=== PATIENT | male | born 1955 | race Caucasian/White ===

== ENCOUNTER 2021-08-20 10:35 | Inpatient (IN) | payer OTHER, MEDICAID, SELFPAY ==
--- NOTE | 2021-08-20 | ECG_ITS ---
Test Reason : qtc prolongation Blood Pressure : / mmHG Vent. Rate : 094 BPM Atrial Rate : 094 BPM P-R Int : 192 ms QRS Dur : 110 ms QT Int : 368 ms P-R-T Axes : 067 026 061 degrees QTc Int : 460 ms Normal sinus rhythm Incomplete right bundle branch block Borderline ECG When compared with ECG of 10-NOV-2005 18:25, Incomplete right bundle branch block is now Present Referred By: Arlette Shepherd Electronically Signed By:FERNANDO VELEZ
[2021-08-20 11:01] VITALS: BP 144/74; PULSE 97; RESP 16; TEMP 36.4; O2SAT 99
--- NOTE | 2021-08-20 11:52 | P.HPPS_ITS ---
HPI Date of Service: 08/20/21 Chief Complaint: Unspecified bipolar Sources of Information: patient interviewed, chart reviewed and crisis/core team assessment reviewed HPI Subjective Notes: Conditional Voluntary (signed by HCP- his son) Healthcare Proxy: Yes Narrative: Mr. Kumari is a 65 year-old male with hx of schizoaffective disorder bipolar type who was brought to [facility] ED via EMS from [facility] where pt marcia david resides since 11/2020 due to increase disporganized behavior, speech, delusions related to increase religiosity for about two weeks. In the ED, utox was negative. Pt has been on combination of lithium and clozaril. While at [facility] ED, clozaril was increased from 50mg po daily and 100mg po qhs to 50mg po daily and 150mg po qhs. His lithium dose was increased from 300mg po BID to 450mg po BID. On the unit, pt presents as pleasant but suspicious. Pt asks this write to close the door as people can hear. He is whispering but mostly intelligible. Pt reports there was a cockroaches infestation. He repeats 0.1, my sister, unclear what pt is referring to. When asked if he knows where he is, pt states [employer]. Pt states he thinks he may live here. Pt unable to articulate reasons for this admission or that he is in a psychiatric unit. Pt reports seeing angels and that he is an harvinder too. His thought process is mostly derailed and pt presents as poor historian. Past Psychiatric History: Inpatient: per [facility] documentation, multiple inpt admission since age 15 when he had first psychotic episode. Most recently at [facility] 2005; [facility] 2019. OP: Brittany Nicolas Past medication trial: lithium, clozaril. Medical Evaluation Reviewed: Hospitalist Haydee Pending reviewed labs from [facility]- cbc wnl, CMP wnl, EKG on 08/19 Qtc slightly prolonged 472. Meds/Allergies Meds Home Medications Acetaminophen (Acetaminophen 325 Mg Tablet) 650 mg PO Q6H PRN PRN Reason: Headache/Pain Mild Scale (1-3) Al Hydroxide/Mg Hydroxide (Magnesium Hydrox/Alum Hydrox 30 Ml Oral.Susp) 30 ml PO Q6H PRN PRN Reason: Heartburn/Nausea Apixaban (Apixaban 5 Mg Tablet) 5 mg PO BID [facility] Carvedilol (Carvedilol 12.5 Mg Tablet) 12.5 mg PO BID [facility]; Protocol Clozapine (Clozapine 25 Mg Tablet) 50 mg PO DAILY [facility] Clozapine (Clozapine 25 Mg Tablet) 150 mg PO BEDTIME [facility] Levothyroxine Sodium (Levothyroxine Sodium 175 Mcg Tablet) 175 mcg PO DAILY@0600 [facility] [place] Carbonate ([place] Carbonate 300 Mg Capsule) 450 mg PO BID [facility] Lorazepam (Lorazepam 1 Mg Tablet) 1 mg PO Q6H PRN PRN Reason: anxiety/agitation/sleep Magnesium Hydroxide (Milk Of Magnesia 30 Ml Oral.Susp) 30 ml PO DAILY PRN PRN Reason: Constipation Trazodone HCl (Trazodone Hcl 50 Mg Tablet) 50 mg PO BEDTIME PRN PRN Reason: Insomnia Trazodone HCl (Trazodone Hcl 100 Mg Tablet) 100 mg PO BEDTIME [facility] Allergies Allergies Allergy/AdvReac Type Severity Reaction Status Date / Time house dust Allergy Intermediate watery eyes Verified 08/20/21 11:33 adhesive Allergy Unknown Unknown Verified 08/20/21 12:09 fenofibrate Allergy Unknown Unknown Verified 08/20/21 12:05 Sulfa (Sulfonamide Allergy Unknown unknown Verified 08/20/21 11:33 Antibiotics) tomato Allergy Unknown Unknown Verified 08/20/21 12:07 Yeast Allergy Unknown Unknown Verified 08/20/21 12:08 zolpidem [From Ambien] Allergy Unknown Unknown Verified 08/20/21 12:06 lactose AdvReac Unknown Unknown Verified 08/20/21 12:07 Mental Status Exam Mental Status Exam Narrative: Appearance: MO, wearing hospital gown, fair hygiene in NAD Behavior:overly familiar psychomotor:no agitation or retardation noted Speech:mumbles, spontaneous mostly unintelligible Thought process:derailment/loose associations Thought content:some conspiracy, but unclear delusional story Mood: good Affect: expansive SI:denies HI:denies VH/AH:seeing angelerin, Mili razo Delusions:somewhat guarded, suspicious with some degree of grandiose/scientologist delusions Insight/judgment:impaired x 2 Memory/cog: alert, not oriented to situation, place, month, year. impaired. Assessment & Plan Assessment & Plan (1) Schizoaffective disorder, bipolar type: Status: Acute Code(s): F25.0 - Schizoaffective disorder, bipolar type Assessment and Plan: Mr. Kumari is a 65 year-old male with long hx of schizoaffective disorder, Parkinson's, afib status post pace maker, HTN, sleep apnea who was brought to [facility] ED from [facility] where he resides since 11/2020 due to increase disorganized behaviors/speech, paranoid and scientologist delusions. Pt has been on combination of lithium and clozaril. [place] increase to 450mg po BID while in ED on 08/14. Clozaril increased from 50mg po daily and 100mg po qhs to 50mg po daily and 150mg po qhs. PLAN 1. Admitted on CV signed by HCP. 15 minutes checks for safety. Pt currently does not have capacity to make medical decisions as he lacks ability to demonstrate understanding of current medical/psychiatric condition, appreciation of risks versus benefit of treatment. His son, who is HCP and POA, gave verbal consent for CV witnessed by this development writer, GURINDER Garcia, and MARK Collado. 2. Continue clozaril 50mg po daily and 150mg po qhs- weekly ANC, ordered clozaril level. recheck EKG as Qtc gradually prolonged since dose increase. 3. check lithium level AM, TSH 4. Coordinate care 5. After care planning Patient educated on: diagnosis Guardian/Caregiver educated on: diagnosis and medication risk/benefits Informed Consent: understands (signed by HCP) Reason for continued inpatient stay Substantial Risk for: inability to function
[2021-08-20 12:02] VITALS: BMI 34.5
[2021-08-20 13:15] LABS: Neut%MD 70.9 %; Neutrophils Absolute Auto 6.4 x10*3/uL (2.0-8.3)
--- NOTE | 2021-08-20 14:16 | PC.ADMIT ---
Patient Quoc Edge, 65 year-old , Male who was diagnosed for Unspecified Bipolar and related desorder. Has been transferred today from the [facility] to [facility] for further investigation and management of treatment. Patient with medical and sugical history of : Depression, HTN , Hyperlipidemia , A.fib post pacemaker placement , Thyroid disease . Patient has a VS: BP : 144/74 , Spo2: 99. Pls: 97. Temp: 97.5.He is alert, confused and oriented only to self. Patient is pleasant with a redness in his face more around the nose. No complaint of chest pain, no edema, no nausea, no vomiting. HS, LS,BS not listen to. Patient declined complete assessment. Patient was admitted today at 11h30 AM on the unit for further evaluation and management of treatment.
[2021-08-20 18:00] VITALS: BP 160/83; PULSE 101; RESP 16; TEMP 37; O2SAT 97
[2021-08-20 20:23] VITALS: BP 164/79; PULSE 102
[2021-08-20] MEDS: cloZAPine 25 MG TABLET 150 MG PO (20:23)
[2021-08-20] MEDS: carvediloL 12.5 MG TABLET PO (20:23)
[2021-08-20] MEDS: Apixaban 5 MG TABLET PO (20:25)
[2021-08-20] MEDS: traZODone HCL 100 MG TABLET PO (20:25)
[2021-08-20] MEDS: Lithium Carbonate 300 MG TABLET 450 MG PO (20:34)
[2021-08-21] MEDS: Levothyroxine Sodium 175 MCG TABLET PO (05:34)
[2021-08-21] MEDS: LORazepam 1 MG TABLET PO (05:34)
[2021-08-21 07:00] VITALS: BMI 34.7
[2021-08-21 07:06] LABS: MANUAL DIFF FLAG NO
[2021-08-21 07:15] LABS: Basophils Percent Auto 0.4 % (0-2); Eosinophils Absolute Auto 0.3 X10*3/uL (0.0-0.4); Eosinophils Percent Auto 3.3 % (0-4); Hematocrit 33.4 % (42.0-52.0); Hemoglobin 11.2 g/dl (14.0-18.0); Imm Gran Abs Auto 0.04 X10*3/uL (0.00-0.03); Imm Gran Pct Auto 0.5 % (0.0-0.4); Lymphocytes Absolute Auto 1.7 X10*3/uL (1.2-4.9); Lymphocytes Percent Auto 21.6 % (20-40); Mean Corpuscular HGB Conc 33.5 g/dl (31.0-36.0); Mean Corpuscular Hemoglobin 29.5 pg (27.0-33.0); Mean Corpuscular Volume 87.9 fL (80.0-98.0); Mean Platelet Volume 10.6 fL (9.4-12.4); Monocytes Percent Auto 12.3 % (2-11); Neutrophils Absolute Auto 4.9 x10*3/uL (2.0-8.3); Neutrophils Percent Auto 61.9 % (45-73); Platelet Count 291 X10*3/uL (160-400); Red Cell Distribution Width 13.2 % (11.0-16.0); White Blood Count 7.9 X10*3/uL (4.8-10.8)
[2021-08-21 07:23] LABS: Lithium 0.83 mmol/L (0.60-1.20)
[2021-08-21 07:28] LABS: Alanine Aminotransferase 33 U/L (0-40); Albumin Level 4.1 g/dL (3.5-5.0); Alkaline Phosphatase 73 U/L (39-117); Anion Gap 12 (12-20); Aspartate Amino Transferase 19 U/L (5-37); Bilirubin Total 0.7 mg/dL (0.0-1.0); Blood Urea Nitrogen 13 mg/dL (9-16); Calcium 9.3 mg/dL (8.4-10.2); Carbon Dioxide 24 mmol/L (22-29); Chloride 106 mmol/L (96-108); Cholesterol 140 mg/dL; Creatinine Clr Calc Pharmacy 76.9; Estimated Glomerular Filt Rate > 60; Glucose Random 118 mg/dL (60-115); HDL Cholesterol 25 mg/dL; LDL Cholesterol Calculated 71 mg/dl; Potassium 3.6 mmol/L (3.3-5.1); Sodium 138 mmol/L (135-145); Total Protein 6.6 g/dL (6.5-8.0); Triglycerides 223 mg/dL
[2021-08-21 07:48] LABS: Free T4 (Free Thyroxine) 1.38 ng/dL (0.71-1.85); Thyroid Stimulating Hormone 1.07 uIU/mL (0.32-4.0)
[2021-08-21 08:00] VITALS: BP 144/80; PULSE 84; TEMP 36.6; O2SAT 97
[2021-08-21 08:00] LABS: Folate 10.6 ng/mL (> or = 4.0); Vitamin B12 481 pg/mL (200-900)
[2021-08-21 08:07] LABS: Estimated Average Glucose 103 mg/dL; Hemoglobin A1c % 5.2 %
[2021-08-21 08:25] VITALS: BP 144/80; PULSE 84
[2021-08-21] MEDS: Apixaban 5 MG TABLET PO ×2 (08:25→20:30)
[2021-08-21] MEDS: carvediloL 12.5 MG TABLET PO ×2 (08:25→20:28)
[2021-08-21] MEDS: cloZAPine 25 MG TABLET 50 MG PO (08:26)
[2021-08-21] MEDS: Lithium Carbonate 300 MG TABLET 450 MG PO ×2 (08:26→20:29)
--- NOTE | 2021-08-21 11:14 | PM.IMCN ---
History of Present Illness Data of Consult Service Date: 08/21/21 Primary Care Provider: Unknown Physician HPI Reason for consult: Routine Medical Patient medical history/surgical/social/FM information is obtained via records from [facility]. This is a 65 yo M with a PMH of PAF on Eliquis, SSS - s/p PPM, HTN, Esstential tremor, ? Parkinson disease, NIRMAL on CPAP, Bipolar/Schizoaffective d/o who is admitted to the [facility]arg[facility] unit. Medical are services are consulted for routine medical H&P. Patient is seen and examined in the quiet room. He denies any chest pain, shortness of breath, cough. PMH Bipolar d/o SSS - s/p PPM PAF ED HTN HyperTG hypothyroid Parkinsonism NIRMAL PSH Lap Nancy ETT ASD repair PPM PPM infection Arthoscopic Knee surg Social No alcohol use No tobacco use No illicit substance use FH Mother - breast CA Father - CAD, Brother - CAD, COPD, Colonic polyp, Bone cancer Review of Systems Review of Systems: negative except above COUNT INCLUDES THE [facility] Medical History (Updated 08/21/21 @ 11:47 by Jorge Dejesus MD) PAF (paroxysmal atrial fibrillation) Social History Household Members: None Housing: Assisted Living Facility Do you presently have visiting nurse or other home services: No Patient Tobacco Use Status: Never used Tobacco Smoked in Last 30 Days: No e-Cigarette/Vaping Use: Never Used Patient Interested in Nicotine Replacement: No Patient Given Instructions on How to Stop Smoking: No Second Hand Smoke Exposure: No Use of substances other than those prescribed or required for medical reasons: No Currently Displaying Signs/Symptoms of Drug Intoxication Withdrawal: No Any prior treatment program specific to substance use: No Advance Directives: No Advance Directives Information Provided: No Advance Directives on File: No Do you have thoughts of harming others: None Do you have a plan to hurt others: No Plan Recently lost weight without trying: No How much weight loss: Not applicable Eating poorly because of decreased appetite: No Nutrition screen score: 0 Nutrition Risks: No Nutritional Risk Poor oral hygiene: Yes Sexual orientation: Don't Know Meds Allergies Allergy/AdvReac Type Severity Reaction Status Date / Time house dust Allergy Intermediate watery eyes Verified 08/20/21 11:33 adhesive Allergy Unknown Unknown Verified 08/20/21 12:09 fenofibrate Allergy Unknown Unknown Verified 08/20/21 12:05 Sulfa (Sulfonamide Allergy Unknown unknown Verified 08/20/21 11:33 Antibiotics) tomato Allergy Unknown Unknown Verified 08/20/21 12:07 Yeast Allergy Unknown Unknown Verified 08/20/21 12:08 zolpidem [From Ambien] Allergy Unknown Unknown Verified 08/20/21 12:06 lactose AdvReac Unknown Unknown Verified 08/20/21 12:07 Active Medications: Current Medications Acetaminophen (Acetaminophen 325 Mg Tablet) 650 mg PO Q6H PRN PRN Reason: Headache/Pain Mild Scale (1-3) Al Hydroxide/Mg Hydroxide (Magnesium Hydrox/Alum Hydrox 30 Ml Oral.Susp) 30 ml PO Q6H PRN PRN Reason: Heartburn/Nausea Apixaban (Apixaban 5 Mg Tablet) 5 mg PO BID [facility] Last Admin: 08/21/21 08:25 Dose: 5 mg Documented by: Carvedilol (Carvedilol 12.5 Mg Tablet) 12.5 mg PO BID [facility]; Protocol Last Admin: 08/21/21 08:25 Dose: 12.5 mg Documented by: Clozapine (Clozapine 25 Mg Tablet) 50 mg PO DAILY [facility] Last Admin: 08/21/21 08:26 Dose: 50 mg Documented by: Clozapine (Clozapine 25 Mg Tablet) 150 mg PO BEDTIME [facility] Last Admin: 08/20/21 20:23 Dose: 150 mg Documented by: Levothyroxine Sodium (Levothyroxine Sodium 175 Mcg Tablet) 175 mcg PO DAILY@0600 [facility] Last Admin: 08/21/21 05:34 Dose: 175 mcg Documented by: [place] Carbonate ([place] Carbonate 300 Mg Tablet) 450 mg PO BID [facility] Last Admin: 08/21/21 08:26 Dose: 450 mg Documented by: Lorazepam (Lorazepam 1 Mg Tablet) 1 mg PO Q6H PRN PRN Reason: anxiety/agitation/sleep Last Admin: 08/21/21 05:34 Dose: 1 mg Documented by: Magnesium Hydroxide (Milk Of Magnesia 30 Ml Oral.Susp) 30 ml PO DAILY PRN PRN Reason: Constipation Trazodone HCl (Trazodone Hcl 50 Mg Tablet) 50 mg PO BEDTIME PRN PRN Reason: Insomnia Trazodone HCl (Trazodone Hcl 100 Mg Tablet) 100 mg PO BEDTIME [facility] Last Admin: 08/20/21 20:25 Dose: 100 mg Documented by: Physical Exam Vital Signs and Narrative: Vital Signs: Last Vital Signs Temp 98.6 F 08/20/21 18:00 Pulse 84 08/21/21 08:25 Resp 16 08/20/21 18:00 BP 144/80 H 08/21/21 08:25 Pulse Ox 97 08/20/21 18:00 BMI result Body Mass Index 34.5 Const: Other: Constitutional - Awake and Alert, No apparent distress Eyes - PERRLA, EOMI Cardiovascular - S1S2, RRR, No edema Respiratory - Normal lung expansion, Normal respiratory effort, No respiratory distress, CTA bilaterally Gastrointestinal - NT / ND; +BS; No rebound or guarding - No CVA tenderness Extremities - no calf tenderness bilaterally, no swelling Musculoskeletal - Normal inspection, normal ROM Skin - Warm/Dry Neurological - Oriented to self, CN 2-12 in tact bilaterally Results Labs CBC and Chem 7: 08/21/21 06:56 08/21/21 06:56 Labs: Laboratory Results - last 24 hr 08/20/21 08/21/21 08/21/21 13:07 06:56 06:56 MCV 87.9 MCH 29.5 MCHC 33.5 RDW 13.2 Plt Count 291 MPV 10.6 Immature Gran % (Auto) 0.5 H Neut % (Auto) 61.9 Lymph % (Auto) 21.6 [place] % (Auto) 12.3 H Eos % (Auto) 3.3 Baso % (Auto) 0.4 Lymph # (Auto) 1.7 [place] # (Auto) 1.0 Eos # (Auto) 0.3 Baso # (Auto) 0.0 Abs Immat Gran (auto) 0.04 H Absolute Neuts (auto) 6.4 4.9 Absolute Nucleated RBC 0.000 Nucleated RBC % (auto) 0.0 Anion Gap Estim Creat Clear Calc Estimated GFR Random Glucose Estimat Average Glucose 103 Hemoglobin A1c % 5.2 Calcium Total Bilirubin AST ALT Alkaline Phosphatase Total Protein Albumin Triglycerides Cholesterol LDL Cholesterol, Calc HDL Cholesterol Vitamin B12 Folate TSH Free T4 [place] 08/21/21 08/21/21 08/21/21 06:56 06:56 06:56 MCV MCH MCHC RDW Plt Count MPV Immature Gran % (Auto) Neut % (Auto) Lymph % (Auto) [place] % (Auto) Eos % (Auto) Baso % (Auto) Lymph # (Auto) [place] # (Auto) Eos # (Auto) Baso # (Auto) Abs Immat Gran (auto) Absolute Neuts (auto) Absolute Nucleated RBC Nucleated RBC % (auto) Anion Gap 12 Estim Creat Clear Calc 76.9 Estimated GFR > 60 Random Glucose 118 H Estimat Average Glucose Hemoglobin A1c % Calcium 9.3 Total Bilirubin 0.7 AST 19 ALT 33 Alkaline Phosphatase 73 Total Protein 6.6 Albumin 4.1 Triglycerides 223 Cholesterol 140 LDL Cholesterol, Calc 71 HDL Cholesterol 25 Vitamin B12 481 Folate 10.6 TSH 1.07 Free T4 1.38 [place] 0.83 Assessment and Plan (1) PAF (paroxysmal atrial fibrillation): Status: Acute (2) Routine medical exam: Status: Acute 65 yo M with multiple medical issues admitted to the inpatient bhargavi-psych unit. He appears to be stable from a medical perspective at this time. Current stable Medical issues: SSS - s/p PPM - rates controlled PAF - continue Eliquis / Coreg HTN - coreg as above HyperTG - does not appaer to be on any meds ?? hypothyroid - synthroid NIRMAL - CPAP, see details below Would continue his baseline medical medications -- including Coreg / Eliquis, Synthroid, any others. Additionally [facility] records indicate that he has NIRMAL and is on CPAP. If able to bring unit from would prefer this, but for the time being CPAP has been ordered here -- his baseline settings are unknown. Please re-consult as needed
--- NOTE | 2021-08-21 11:26 | P.PNPSI_ITS ---
Subjective Subjective Date of Service: 08/21/21 Reason For Visit: Unspecified bipolar Subjective Notes: Conditional Voluntary (per HCP) Healthcare Proxy: Yes Interim History: Legal: CV signed by HCP Per nursing, pt was up most night, purposeless behavior, sitting on toilet with clothes and trying to flush toilet by turning on light switch. Pt this morning in his room. Pt pleasant. Pt reports he is doing good. His thought process is more organized in that there is less derailment/loose associations. Pt reports that he continues to see Omari Razo, that she is also telling him everything will be fine except for some [place] assholes who live upstairs. Pt also continues to report that he sees angels. He reports that he feels safe here in the unit. Pt is taking medications as prescribed. No side effects noted or reported. Pt de nies constipation/loose stool, no chest pain, no SOB. Medication Compliance: Yes Side effects from medications: No Attending Groups: No Review of Systems Acute medical concerns: No Review of Systems Review of Systems Yes all other systems are reviewed and are negative Constitutional: Denies fatigue Cardiovascular: Denies chest pain and Denies lightheadedness Endocrine: Denies fatigue Mental Status Exam Mental Status Exam Narrative: Appearance: MO, wearing hospital gown, fair hygiene in NAD Behavior:overly familiar psychomotor:no agitation or retardation noted Speech:mumbles, spontaneous mostly unintelligible Thought process:derailment/loose associations Thought content:pt reports hearing Omari Razo telling him some Russians are bad ppl. Mood: good Affect: expansive SI:denies HI:denies VH/AH:seeing angels, VH/AH of Mili razo Delusions:somewhat guarded, suspicious with some degree of grandiose (thinks he is an harvinder too)/episcopalian delusions Insight/judgment:impaired x 2 Memory/cog: alert, not oriented to situation, place, month, year. impaired. Diagnostics Vital Signs (24Hr): Vital Signs - 24 hr 08/20/21 18:00 08/20/21 20:23 08/21/21 08:25 Temperature 98.6 F Pulse Rate 101 H 102 H 84 Respiratory Rate 16 Blood Pressure 160/83 H 164/79 H 144/80 H Pulse Oximetry 97 BMI result Body Mass Index 34.5 Labs Results: 08/21/21 06:56 08/21/21 06:56 Labs: Laboratory Results - last 48 hr 08/20/21 08/21/21 08/21/21 13:07 06:56 06:56 WBC 7.9 RBC 3.80 L Hgb 11.2 L Hct 33.4 L MCV 87.9 MCH 29.5 MCHC 33.5 RDW 13.2 Plt Count 291 MPV 10.6 Immature Gran % (Auto) 0.5 H Neut % (Auto) 61.9 Lymph % (Auto) 21.6 [place] % (Auto) 12.3 H Eos % (Auto) 3.3 Baso % (Auto) 0.4 Lymph # (Auto) 1.7 [place] # (Auto) 1.0 Eos # (Auto) 0.3 Baso # (Auto) 0.0 Abs Immat Gran (auto) 0.04 H Absolute Neuts (auto) 6.4 4.9 Absolute Nucleated RBC 0.000 Nucleated RBC % (auto) 0.0 Sodium Potassium Chloride Carbon Dioxide Anion Gap BUN Creatinine Estim Creat Clear Calc Estimated GFR Random Glucose Estimat Average Glucose 103 Hemoglobin A1c % 5.2 Calcium Total Bilirubin AST ALT Alkaline Phosphatase Total Protein Albumin Triglycerides Cholesterol LDL Cholesterol, Calc HDL Cholesterol Vitamin B12 Folate TSH Free T4 [place] 08/21/21 08/21/21 08/21/21 06:56 06:56 06:56 WBC RBC Hgb Hct MCV MCH MCHC RDW Plt Count MPV Immature Gran % (Auto) Neut % (Auto) Lymph % (Auto) [place] % (Auto) Eos % (Auto) Baso % (Auto) Lymph # (Auto) [place] # (Auto) Eos # (Auto) Baso # (Auto) Abs Immat Gran (auto) Absolute Neuts (auto) Absolute Nucleated RBC Nucleated RBC % (auto) Sodium 138 Potassium 3.6 Chloride 106 Carbon Dioxide 24 Anion Gap 12 BUN 13 Creatinine 1.03 Estim Creat Clear Calc 76.9 Estimated GFR > 60 Random Glucose 118 H Estimat Average Glucose Hemoglobin A1c % Calcium 9.3 Total Bilirubin 0.7 AST 19 ALT 33 Alkaline Phosphatase 73 Total Protein 6.6 Albumin 4.1 Triglycerides 223 Cholesterol 140 LDL Cholesterol, Calc 71 HDL Cholesterol 25 Vitamin B12 481 Folate 10.6 TSH 1.07 Free T4 1.38 [place] 0.83 Medications Medications Current Medications Acetaminophen (Acetaminophen 325 Mg Tablet) 650 mg PO Q6H PRN PRN Reason: Headache/Pain Mild Scale (1-3) Al Hydroxide/Mg Hydroxide (Magnesium Hydrox/Alum Hydrox 30 Ml Oral.Susp) 30 ml PO Q6H PRN PRN Reason: Heartburn/Nausea Apixaban (Apixaban 5 Mg Tablet) 5 mg PO BID [facility] Last Admin: 08/21/21 08:25 Dose: 5 mg Documented by: Carvedilol (Carvedilol 12.5 Mg Tablet) 12.5 mg PO BID [facility]; Protocol Last Admin: 08/21/21 08:25 Dose: 12.5 mg Documented by: Clozapine (Clozapine 25 Mg Tablet) 50 mg PO DAILY [facility] Last Admin: 08/21/21 08:26 Dose: 50 mg Documented by: Clozapine (Clozapine 25 Mg Tablet) 150 mg PO BEDTIME [facility] Last Admin: 08/20/21 20:23 Dose: 150 mg Documented by: Levothyroxine Sodium (Levothyroxine Sodium 175 Mcg Tablet) 175 mcg PO DAILY@0600 [facility] Last Admin: 08/21/21 05:34 Dose: 175 mcg Documented by: [place] Carbonate ([place] Carbonate 300 Mg Tablet) 450 mg PO BID [facility] Last Admin: 08/21/21 08:26 Dose: 450 mg Documented by: Lorazepam (Lorazepam 1 Mg Tablet) 1 mg PO Q6H PRN PRN Reason: anxiety/agitation/sleep Last Admin: 08/21/21 05:34 Dose: 1 mg Documented by: Magnesium Hydroxide (Milk Of Magnesia 30 Ml Oral.Susp) 30 ml PO DAILY PRN PRN Reason: Constipation Trazodone HCl (Trazodone Hcl 50 Mg Tablet) 50 mg PO BEDTIME PRN PRN Reason: Insomnia Trazodone HCl (Trazodone Hcl 100 Mg Tablet) 100 mg PO BEDTIME [facility] Last Admin: 08/20/21 20:25 Dose: 100 mg Documented by: Allergies Allergies Allergy/AdvReac Type Severity Reaction Status Date / Time house dust Allergy Intermediate watery eyes Verified 08/20/21 11:33 adhesive Allergy Unknown Unknown Verified 08/20/21 12:09 fenofibrate Allergy Unknown Unknown Verified 08/20/21 12:05 Sulfa (Sulfonamide Allergy Unknown unknown Verified 08/20/21 11:33 Antibiotics) tomato Allergy Unknown Unknown Verified 08/20/21 12:07 Yeast Allergy Unknown Unknown Verified 08/20/21 12:08 zolpidem [From Ambien] Allergy Unknown Unknown Verified 08/20/21 12:06 lactose AdvReac Unknown Unknown Verified 08/20/21 12:07 Assessment & Plan Assessment & Plan (1) Schizoaffective disorder, bipolar type: Status: Acute Code(s): F25.0 - Schizoaffective disorder, bipolar type Assessment and Plan: Mr. Kumari is a 65 year-old male with long hx of schizoaffective disorder, Parkinson's, afib status post pace maker, HTN, sleep apnea who was brought to [facility] ED from [facility] where he resides since 11/2020 due to increase disorganized behaviors/speech, paranoid and episcopalian delusions. Pt has been on combination of lithium and clozaril. [place] increase to 450mg po BID while in ED on 08/14. Clozaril increased from 50mg po daily and 100mg po qhs to 50mg po daily and 150mg po qhs. PLAN 1. Admitted on CV signed by HCP. 15 minutes checks for safety. Pt currently does not have capacity to make medical decisions as he lacks ability to demonstrate understanding of current medical/psychiatric condition, appreciation of risks versus benefit of treatment. His son, who is HCP and POA, gave verbal consent for CV witnessed by this sheet writer, GURINDER Garcia, and MARK Collado. 2. Continue clozaril 50mg po daily and 150mg po qhs- weekly ANC, ordered clozaril level. 3. check lithium level AM on 08/21 0.8. 4. Coordinate care 5. After care planning I spent minutes with the patient and/or on the patient floor today, greater than?50% of which was spent counseling/coordinating care. Reason for contiued inpatient stay Substantial Risk for: inability to function
--- NOTE | 2021-08-21 12:56 | PC.NURSE ---
Pt. with negative Covid test from [facility] ED performed 08/19.
--- NOTE | 2021-08-21 13:14 | PC.NURSE ---
Son/activated HCP notified of pt.'s admission at time of admission 08/20.
[2021-08-21 18:00] VITALS: BP 158/78; PULSE 88; RESP 19; TEMP 36.7; O2SAT 96
[2021-08-21 20:28] VITALS: BP 158/78; PULSE 88
[2021-08-21] MEDS: traZODone HCL 100 MG TABLET PO (20:28)
[2021-08-21] MEDS: cloZAPine 25 MG TABLET 150 MG PO (20:30)
[2021-08-22 06:00] VITALS: BP 148/77; PULSE 78; RESP 14; TEMP 36.4; O2SAT 97
[2021-08-22] MEDS: Levothyroxine Sodium 175 MCG TABLET PO (06:45)
[2021-08-22] MEDS: Lithium Carbonate 300 MG TABLET 450 MG PO ×2 (09:12→19:58)
[2021-08-22 09:13] VITALS: BP 148/77; PULSE 78
[2021-08-22] MEDS: cloZAPine 25 MG TABLET 50 MG PO ×2 (09:13→19:56)
[2021-08-22] MEDS: carvediloL 12.5 MG TABLET PO ×2 (09:13→23:19)
[2021-08-22] MEDS: Apixaban 5 MG TABLET PO ×2 (09:13→19:58)
--- NOTE | 2021-08-22 10:27 | HO.PSYCHPN ---
Subjective Subjective Date of Service: 08/22/21 Reason For Visit: Unspecified bipolar Subjective Notes: Conditional Voluntary Interim History: Patient was seen and discussed in rounds. He continues to be confused, delusional. He does exhibit indications of auditory and possibly visual hallucinations. He is disorganized. He is however med compliant. Eating and sleeping adequately. No complaints or side effects. No behavioral issues. No changes were made today Medication Compliance: Yes Side effects from medications: No Review of Systems Review of Systems Yes all other systems are reviewed and are negative Constitutional: Denies fatigue Cardiovascular: Denies chest pain and Denies lightheadedness Endocrine: Denies fatigue Mental Status Exam Mental Status Exam Narrative: Appearance: MO, wearing hospital gown, fair hygiene in NAD Behavior:overly familiar psychomotor:no agitation or retardation noted Speech:mumbles, spontaneous mostly unintelligible Thought process:derailment/loose associations Thought content:pt reports hearing Omari Razo telling him some Russians are bad ppl. Mood: good Affect: expansive SI:denies HI:denies VH/AH:seeing angels, VH/AH of Mili razo Delusions:somewhat guarded, suspicious with some degree of grandiose (thinks he is an harvinder too)/adventist delusions Insight/judgment:impaired x 2 Memory/cog: alert, not oriented to situation, place, month, year. impaired. Patient Appearance: Disheveled Diagnostics Vital Signs (24Hr): Vital Signs - 24 hr 08/21/21 18:00 08/21/21 20:28 08/22/21 09:13 Temperature 98.1 F Pulse Rate 88 88 78 Respiratory Rate 19 Blood Pressure 158/78 H 158/78 H 148/77 H Pulse Oximetry 96 BMI result Body Mass Index 34.7 Labs Results: 08/21/21 06:56 08/21/21 06:56 Labs: Laboratory Results - last 48 hr 08/20/21 08/21/21 08/21/21 13:07 06:56 06:56 WBC 7.9 RBC 3.80 L Hgb 11.2 L Hct 33.4 L MCV 87.9 MCH 29.5 MCHC 33.5 RDW 13.2 Plt Count 291 MPV 10.6 Immature Gran % (Auto) 0.5 H Neut % (Auto) 61.9 Lymph % (Auto) 21.6 [place] % (Auto) 12.3 H Eos % (Auto) 3.3 Baso % (Auto) 0.4 Lymph # (Auto) 1.7 [place] # (Auto) 1.0 Eos # (Auto) 0.3 Baso # (Auto) 0.0 Abs Immat Gran (auto) 0.04 H Absolute Neuts (auto) 6.4 4.9 Absolute Nucleated RBC 0.000 Nucleated RBC % (auto) 0.0 Sodium Potassium Chloride Carbon Dioxide Anion Gap BUN Creatinine Estim Creat Clear Calc Estimated GFR Random Glucose Estimat Average Glucose 103 Hemoglobin A1c % 5.2 Calcium Total Bilirubin AST ALT Alkaline Phosphatase Total Protein Albumin Triglycerides Cholesterol LDL Cholesterol, Calc HDL Cholesterol Vitamin B12 Folate TSH Free T4 [place] 08/21/21 08/21/21 08/21/21 06:56 06:56 06:56 WBC RBC Hgb Hct MCV MCH MCHC RDW Plt Count MPV Immature Gran % (Auto) Neut % (Auto) Lymph % (Auto) [place] % (Auto) Eos % (Auto) Baso % (Auto) Lymph # (Auto) [place] # (Auto) Eos # (Auto) Baso # (Auto) Abs Immat Gran (auto) Absolute Neuts (auto) Absolute Nucleated RBC Nucleated RBC % (auto) Sodium 138 Potassium 3.6 Chloride 106 Carbon Dioxide 24 Anion Gap 12 BUN 13 Creatinine 1.03 Estim Creat Clear Calc 76.9 Estimated GFR > 60 Random Glucose 118 H Estimat Average Glucose Hemoglobin A1c % Calcium 9.3 Total Bilirubin 0.7 AST 19 ALT 33 Alkaline Phosphatase 73 Total Protein 6.6 Albumin 4.1 Triglycerides 223 Cholesterol 140 LDL Cholesterol, Calc 71 HDL Cholesterol 25 Vitamin B12 481 Folate 10.6 TSH 1.07 Free T4 1.38 [place] 0.83 Medications Medications Current Medications Acetaminophen (Acetaminophen 325 Mg Tablet) 650 mg PO Q6H PRN PRN Reason: Headache/Pain Mild Scale (1-3) Al Hydroxide/Mg Hydroxide (Magnesium Hydrox/Alum Hydrox 30 Ml Oral.Susp) 30 ml PO Q6H PRN PRN Reason: Heartburn/Nausea Apixaban (Apixaban 5 Mg Tablet) 5 mg PO BID [facility] Last Admin: 08/22/21 09:13 Dose: 5 mg Documented by: Carvedilol (Carvedilol 12.5 Mg Tablet) 12.5 mg PO BID [facility]; Protocol Last Admin: 08/22/21 09:13 Dose: 12.5 mg Documented by: Clozapine (Clozapine 25 Mg Tablet) 50 mg PO DAILY [facility] Last Admin: 08/22/21 09:13 Dose: 50 mg Documented by: Clozapine (Clozapine 25 Mg Tablet) 150 mg PO BEDTIME [facility] Last Admin: 08/21/21 20:30 Dose: 150 mg Documented by: Levothyroxine Sodium (Levothyroxine Sodium 175 Mcg Tablet) 175 mcg PO DAILY@0600 [facility] Last Admin: 08/22/21 06:45 Dose: 175 mcg Documented by: [place] Carbonate ([place] Carbonate 300 Mg Tablet) 450 mg PO BID [facility] Last Admin: 08/22/21 09:12 Dose: 450 mg Documented by: Lorazepam (Lorazepam 1 Mg Tablet) 1 mg PO Q6H PRN PRN Reason: anxiety/agitation/sleep Last Admin: 08/21/21 05:34 Dose: 1 mg Documented by: Magnesium Hydroxide (Milk Of Magnesia 30 Ml Oral.Susp) 30 ml PO DAILY PRN PRN Reason: Constipation Trazodone HCl (Trazodone Hcl 50 Mg Tablet) 50 mg PO BEDTIME PRN PRN Reason: Insomnia Trazodone HCl (Trazodone Hcl 100 Mg Tablet) 100 mg PO BEDTIME [facility] Last Admin: 08/21/21 20:28 Dose: 100 mg Documented by: Allergies Allergies Allergy/AdvReac Type Severity Reaction Status Date / Time house dust Allergy Intermediate watery eyes Verified 08/20/21 11:33 adhesive Allergy Unknown Unknown Verified 08/20/21 12:09 fenofibrate Allergy Unknown Unknown Verified 08/20/21 12:05 Sulfa (Sulfonamide Allergy Unknown unknown Verified 08/20/21 11:33 Antibiotics) tomato Allergy Unknown Unknown Verified 08/20/21 12:07 Yeast Allergy Unknown Unknown Verified 08/20/21 12:08 zolpidem [From Ambien] Allergy Unknown Unknown Verified 08/20/21 12:06 lactose AdvReac Unknown Unknown Verified 08/20/21 12:07 Assessment & Plan Assessment & Plan (1) PAF (paroxysmal atrial fibrillation): Status: Acute Code(s): I48.0 - Paroxysmal atrial fibrillation (2) Routine medical exam: Status: Acute Code(s): Z00.00 - Encounter for general adult medical examination without abnormal findings Assessment and Plan: 65 yo M with multiple medical issues admitted to the inpatient [facility]. He appears to be stable from a medical perspective at this time. Current stable Medical issues: SSS - s/p PPM - rates controlled PAF - continue Eliquis / Coreg HTN - coreg as above HyperTG - does not appaer to be on any meds ?? hypothyroid - synthroid NIRMAL - CPAP, see details below Would continue his baseline medical medications -- including Coreg / Eliquis, Synthroid, any others. Additionally [facility] records indicate that he has NIRMAL and is on CPAP. If able to bring unit from would prefer this, but for the time being CPAP has been ordered here -- his baseline settings are unknown. 08/22: Continue current regimen and plans with no changes today I spent minutes with the patient and/or on the patient floor today, greater than?50% of which was spent counseling/coordinating care. Reason for contiued inpatient stay Substantial Risk for: inability to function
[2021-08-22] MEDS: traZODone HCL 100 MG TABLET PO (19:58)
[2021-08-22] MEDS: cloZAPine 25 MG TABLET 150 MG PO (19:58)
[2021-08-22 20:06] VITALS: BP 156/74; PULSE 81; RESP 18; TEMP 37.1; O2SAT 96
[2021-08-22 23:19] VITALS: BP 156/76; PULSE 88
--- NOTE | 2021-08-23 01:15 | PC.NURSE ---
PT refusing Cpap at this time, notified. VSS. O2 97%RA. Nurse will continue to monitor.
[2021-08-23 01:17] VITALS: RESP 18; O2SAT 97
[2021-08-23] MEDS: Levothyroxine Sodium 175 MCG TABLET PO (06:23)
[2021-08-23 08:00] VITALS: BP 156/82; PULSE 83
[2021-08-23] MEDS: cloZAPine 25 MG TABLET 50 MG PO (08:00)
[2021-08-23] MEDS: Lithium Carbonate 300 MG TABLET 450 MG PO ×2 (08:00→20:14)
[2021-08-23] MEDS: carvediloL 12.5 MG TABLET PO ×2 (08:00→20:13)
[2021-08-23] MEDS: Apixaban 5 MG TABLET PO ×2 (08:00→20:14)
[2021-08-23 08:24] VITALS: BP 156/82; PULSE 83; RESP 14; TEMP 36.7; O2SAT 96
--- NOTE | 2021-08-23 09:32 | HO.PSYCHPN ---
Subjective Subjective Date of Service: 08/23/21 Reason For Visit: Unspecified bipolar Subjective Notes: Conditional Voluntary Interim History: Was seen in rounds today. Records reviewed. He has been stable and is doing better. He is in good spirits and brighter in his affect. He denies any side effects. Eating and sleeping adequately. No changes were made today Review of Systems Review of Systems Yes all other systems are reviewed and are negative Constitutional: Denies fatigue Cardiovascular: Denies chest pain and Denies lightheadedness Endocrine: Denies fatigue Mental Status Exam Mental Status Exam Narrative: Appearance: MO, wearing hospital gown, fair hygiene in NAD Behavior:overly familiar psychomotor:no agitation or retardation noted Speech:mumbles, spontaneous mostly unintelligible Thought process:derailment/loose associations Thought content:pt reports hearing Omari Razo telling him some Russians are bad ppl. Mood: good Affect: expansive SI:denies HI:denies VH/AH:seeing angels, VH/AH of Mili arzo Delusions:somewhat guarded, suspicious with some degree of grandiose (thinks he is an harvinder too)/restorationist delusions Insight/judgment:impaired x 2 Memory/cog: alert, not oriented to situation, place, month, year. impaired. Patient Appearance: Disheveled Diagnostics Vital Signs (24Hr): Vital Signs - 24 hr 08/22/21 20:06 08/22/21 23:19 08/23/21 01:17 Temperature 98.8 F Pulse Rate 81 88 Respiratory Rate 18 18 Blood Pressure 156/74 H 156/76 H Pulse Oximetry 96 97 08/23/21 08:00 08/23/21 08:24 Temperature 98.0 F Pulse Rate 83 83 Respiratory Rate 14 Blood Pressure 156/82 H 156/82 H Pulse Oximetry 96 BMI result Body Mass Index 34.7 Labs Results: 08/21/21 06:56 08/21/21 06:56 Medications Medications Current Medications Acetaminophen (Acetaminophen 325 Mg Tablet) 650 mg PO Q6H PRN PRN Reason: Headache/Pain Mild Scale (1-3) Al Hydroxide/Mg Hydroxide (Magnesium Hydrox/Alum Hydrox 30 Ml Oral.Susp) 30 ml PO Q6H PRN PRN Reason: Heartburn/Nausea Apixaban (Apixaban 5 Mg Tablet) 5 mg PO BID [facility] Last Admin: 08/23/21 08:00 Dose: 5 mg Documented by: Carvedilol (Carvedilol 12.5 Mg Tablet) 12.5 mg PO BID [facility]; Protocol Last Admin: 08/23/21 08:00 Dose: 12.5 mg Documented by: Clozapine (Clozapine 25 Mg Tablet) 50 mg PO DAILY [facility] Last Admin: 08/23/21 08:00 Dose: 50 mg Documented by: Clozapine (Clozapine 25 Mg Tablet) 150 mg PO BEDTIME [facility] Last Admin: 08/22/21 19:58 Dose: 150 mg Documented by: Levothyroxine Sodium (Levothyroxine Sodium 175 Mcg Tablet) 175 mcg PO DAILY@0600 [facility] Last Admin: 08/23/21 06:23 Dose: 175 mcg Documented by: [place] Carbonate ([place] Carbonate 300 Mg Tablet) 450 mg PO BID [facility] Last Admin: 08/23/21 08:00 Dose: 450 mg Documented by: Lorazepam (Lorazepam 1 Mg Tablet) 1 mg PO Q6H PRN PRN Reason: anxiety/agitation/sleep Last Admin: 08/21/21 05:34 Dose: 1 mg Documented by: Magnesium Hydroxide (Milk Of Magnesia 30 Ml Oral.Susp) 30 ml PO DAILY PRN PRN Reason: Constipation Trazodone HCl (Trazodone Hcl 50 Mg Tablet) 50 mg PO BEDTIME PRN PRN Reason: Insomnia Trazodone HCl (Trazodone Hcl 100 Mg Tablet) 100 mg PO BEDTIME [facility] Last Admin: 08/22/21 19:58 Dose: 100 mg Documented by: Allergies Allergies Allergy/AdvReac Type Severity Reaction Status Date / Time house dust Allergy Intermediate watery eyes Verified 08/20/21 11:33 adhesive Allergy Unknown Unknown Verified 08/20/21 12:09 fenofibrate Allergy Unknown Unknown Verified 08/20/21 12:05 Sulfa (Sulfonamide Allergy Unknown unknown Verified 08/20/21 11:33 Antibiotics) tomato Allergy Unknown Unknown Verified 08/20/21 12:07 Yeast Allergy Unknown Unknown Verified 08/20/21 12:08 zolpidem [From Ambien] Allergy Unknown Unknown Verified 08/20/21 12:06 lactose AdvReac Unknown Unknown Verified 08/20/21 12:07 Assessment & Plan Assessment & Plan (1) PAF (paroxysmal atrial fibrillation): Status: Acute Code(s): I48.0 - Paroxysmal atrial fibrillation (2) Routine medical exam: Status: Acute Code(s): Z00.00 - Encounter for general adult medical examination without abnormal findings Assessment and Plan: 65 yo M with multiple medical issues admitted to the inpatient [facility]. He appears to be stable from a medical perspective at this time. Current stable Medical issues: SSS - s/p PPM - rates controlled PAF - continue Eliquis / Coreg HTN - coreg as above HyperTG - does not appaer to be on any meds ?? hypothyroid - synthroid NIRMAL - CPAP, see details below Would continue his baseline medical medications -- including Coreg / Eliquis, Synthroid, any others. Additionally [facility] records indicate that he has NIRMAL and is on CPAP. If able to bring unit from would prefer this, but for the time being CPAP has been ordered here -- his baseline settings are unknown. 08/22: Continue current regimen and plans with no changes today 08/23: Continue current regimen and plans. I spent minutes with the patient and/or on the patient floor today, greater than?50% of which was spent counseling/coordinating care. Reason for contiued inpatient stay Substantial Risk for: other
[2021-08-23 18:00] VITALS: BP 149/72; PULSE 77; RESP 19; TEMP 37.6; O2SAT 95
[2021-08-23 20:13] VITALS: BP 149/72; PULSE 77
[2021-08-23] MEDS: traZODone HCL 100 MG TABLET PO (20:13)
[2021-08-23] MEDS: cloZAPine 25 MG TABLET 150 MG PO (20:15)
[2021-08-24] MEDS: Levothyroxine Sodium 175 MCG TABLET PO (06:18)
[2021-08-24 08:00] VITALS: BP 130/64; PULSE 80; TEMP 37.6; O2SAT 95
[2021-08-24 08:04] VITALS: BP 130/64; PULSE 80
[2021-08-24] MEDS: Lithium Carbonate 300 MG TABLET 450 MG PO ×2 (08:04→20:37)
[2021-08-24] MEDS: LORazepam 1 MG TABLET PO ×2 (08:04→23:07)
[2021-08-24] MEDS: carvediloL 12.5 MG TABLET PO ×2 (08:04→20:37)
[2021-08-24] MEDS: Apixaban 5 MG TABLET PO ×2 (08:05→20:37)
[2021-08-24] MEDS: cloZAPine 25 MG TABLET 50 MG PO (08:05)
--- NOTE | 2021-08-24 10:39 | P.PNPSI_ITS ---
Subjective Subjective Date of Service: 08/24/21 Reason For Visit: Unspecified bipolar Subjective Notes: Conditional Voluntary Medical Problems Affecting Mental Status: No Interim History: Patient was seen and discussed in rounds today. Records reviewed. He has been stable and overall has maintained his improvement. He is in good spirits. Eating and sleeping adequately. No complaints or side effects. No changes were made today. Medication Compliance: Yes Side effects from medications: No Review of Systems Review of Systems Yes all other systems are reviewed and are negative Constitutional: Denies fatigue Cardiovascular: Denies chest pain and Denies lightheadedness Endocrine: Denies fatigue Mental Status Exam Mental Status Exam Narrative: Appearance: MO, wearing hospital gown, fair hygiene in NAD Behavior:overly familiar psychomotor:no agitation or retardation noted Speech:mumbles, spontaneous mostly unintelligible Thought process:derailment/loose associations Thought content:pt reports hearing Omari Razo telling him some Russians are bad ppl. Mood: good Affect: expansive SI:denies HI:denies VH/AH:seeing angels, VH/AH of Mili razo Delusions:somewhat guarded, suspicious with some degree of grandiose (thinks he is an harvinder too)/cheondoism delusions Insight/judgment:impaired x 2 Memory/cog: alert, not oriented to situation, place, month, year. impaired. Patient Appearance: Disheveled Diagnostics Vital Signs (24Hr): Vital Signs - 24 hr 08/23/21 18:00 08/23/21 20:13 08/24/21 08:00 Temperature 99.6 F 99.6 F Pulse Rate 77 77 80 Respiratory Rate 19 Blood Pressure 149/72 H 149/72 H 130/64 Pulse Oximetry 95 95 08/24/21 08:04 Temperature Pulse Rate 80 Respiratory Rate Blood Pressure 130/64 Pulse Oximetry BMI result Body Mass Index 34.7 Labs Results: 08/21/21 06:56 08/21/21 06:56 Medications Medications Current Medications Acetaminophen (Acetaminophen 325 Mg Tablet) 650 mg PO Q6H PRN PRN Reason: Headache/Pain Mild Scale (1-3) Al Hydroxide/Mg Hydroxide (Magnesium Hydrox/Alum Hydrox 30 Ml Oral.Susp) 30 ml PO Q6H PRN PRN Reason: Heartburn/Nausea Apixaban (Apixaban 5 Mg Tablet) 5 mg PO BID [facility] Last Admin: 08/24/21 08:05 Dose: 5 mg Documented by: Carvedilol (Carvedilol 12.5 Mg Tablet) 12.5 mg PO BID [facility]; Protocol Last Admin: 08/24/21 08:04 Dose: 12.5 mg Documented by: Clozapine (Clozapine 25 Mg Tablet) 50 mg PO DAILY [facility] Last Admin: 08/24/21 08:05 Dose: 50 mg Documented by: Clozapine (Clozapine 25 Mg Tablet) 150 mg PO BEDTIME [facility] Last Admin: 08/23/21 20:15 Dose: 150 mg Documented by: Levothyroxine Sodium (Levothyroxine Sodium 175 Mcg Tablet) 175 mcg PO DAILY@0600 [facility] Last Admin: 08/24/21 06:18 Dose: 175 mcg Documented by: [place] Carbonate ([place] Carbonate 300 Mg Tablet) 450 mg PO BID [facility] Last Admin: 08/24/21 08:04 Dose: 450 mg Documented by: Lorazepam (Lorazepam 1 Mg Tablet) 1 mg PO Q6H PRN PRN Reason: anxiety/agitation/sleep Last Admin: 08/24/21 08:04 Dose: 1 mg Documented by: Magnesium Hydroxide (Milk Of Magnesia 30 Ml Oral.Susp) 30 ml PO DAILY PRN PRN Reason: Constipation Trazodone HCl (Trazodone Hcl 50 Mg Tablet) 50 mg PO BEDTIME PRN PRN Reason: Insomnia Trazodone HCl (Trazodone Hcl 100 Mg Tablet) 100 mg PO BEDTIME [facility] Last Admin: 08/23/21 20:13 Dose: 100 mg Documented by: Allergies Allergies Allergy/AdvReac Type Severity Reaction Status Date / Time house dust Allergy Intermediate watery eyes Verified 08/20/21 11:33 adhesive Allergy Unknown Unknown Verified 08/20/21 12:09 fenofibrate Allergy Unknown Unknown Verified 08/20/21 12:05 Sulfa (Sulfonamide Allergy Unknown unknown Verified 08/20/21 11:33 Antibiotics) tomato Allergy Unknown Unknown Verified 08/20/21 12:07 Yeast Allergy Unknown Unknown Verified 08/20/21 12:08 zolpidem [From Ambien] Allergy Unknown Unknown Verified 08/20/21 12:06 lactose AdvReac Unknown Unknown Verified 08/20/21 12:07 Assessment & Plan Assessment & Plan (1) PAF (paroxysmal atrial fibrillation): Status: Acute Code(s): I48.0 - Paroxysmal atrial fibrillation (2) Routine medical exam: Status: Acute Code(s): Z00.00 - Encounter for general adult medical examination without abnormal findings Assessment and Plan: 65 yo M with multiple medical issues admitted to the inpatient [facility] unit. He appears to be stable from a medical perspective at this time. Current stable Medical issues: SSS - s/p PPM - rates controlled PAF - continue Eliquis / Coreg HTN - coreg as above HyperTG - does not appaer to be on any meds ?? hypothyroid - synthroid NIRMAL - CPAP, see details below Would continue his baseline medical medications -- including Coreg / Eliquis, Synthroid, any others. Additionally [facility] records indicate that he has NIRMAL and is on CPAP. If able to bring unit from would prefer this, but for the time being CPAP has been ordered here -- his baseline settings are unknown. 08/22: Continue current regimen and plans with no changes today 08/23: Continue current regimen and plans. 08/24: Continue current regimen and plans. No changes implemented today I spent minutes with the patient and/or on the patient floor today, greater than?50% of which was spent counseling/coordinating care. Reason for contiued inpatient stay Substantial Risk for: other
[2021-08-24 18:00] VITALS: BP 148/69; PULSE 81; RESP 19; TEMP 36.3; O2SAT 98
[2021-08-24] MEDS: traZODone HCL 100 MG TABLET PO (20:35)
[2021-08-24 20:37] VITALS: BP 148/69; PULSE 81
[2021-08-24] MEDS: cloZAPine 25 MG TABLET 150 MG PO (20:37)
[2021-08-25 04:14] VITALS: PULSE 79; O2SAT 96
[2021-08-25] MEDS: Levothyroxine Sodium 175 MCG TABLET PO (06:03)
[2021-08-25 08:29] VITALS: BP 139/79; PULSE 84
[2021-08-25] MEDS: carvediloL 12.5 MG TABLET PO (08:29)
[2021-08-25] MEDS: LORazepam 1 MG TABLET PO (08:29)
[2021-08-25] MEDS: Apixaban 5 MG TABLET PO (08:29)
[2021-08-25] MEDS: Lithium Carbonate 300 MG TABLET 450 MG PO (08:29)
[2021-08-25] MEDS: cloZAPine 25 MG TABLET 50 MG PO (08:30)
[2021-08-25 09:00] VITALS: BP 139/79; PULSE 84; RESP 18; TEMP 37.9; O2SAT 95
[2021-08-25 10:31] LABS: COVID-19 Test Positive (Negative)
[2021-08-25] MEDS: Acetaminophen 325 MG TABLET 650 MG PO (11:01)
--- NOTE | 2021-08-25 11:37 | PM.PSYDC ---
DS: Providers Provider Date of Service: 08/25/21 Date of admission: 08/20/21 10:35 Date of discharge: 08/25/21 Primary care physician: Unknown Physician Consults: 08/20/21 11:34 Consult to Hospitalist Routine Consulting Provider: Hospitalist Reason For Exam: routine admit from [facility] DS: Diagnosis Discharge Diagnosis (1) PAF (paroxysmal atrial fibrillation): Status: Acute (2) Routine medical exam: Status: Acute (3) Schizoaffective disorder, bipolar type: Status: Acute (4) COVID-19: Status: Acute DS: Medications Discharge Medications Home Medications: Home Medications Medication Instructions Recorded Confirmed No Known Home Meds 08/22/21 08/22/21 Mental Status Exam Mental Status Exam Patient Appearance: Appropriate Patient Orientation: Person Level of Consciousness: Awake and Alert Patient Behavior: Guarded and Suspicious Mood Description: Constricted Affect Description: Constricted Patient Cognition Impaired: Yes Ability to Follow Directions: Fair Speech Pattern: Mumbled Hallucinations: Auditory Delusions: Paranoid Ideation and Grandiose Perceptual Disturbances: Hallucinations Thought Process: Illogical Thought Content: positive for Perseveration, positive for Preoccupation and positive for Loose Associations Judgement: Poor Data Data Completed and Pending Completed studies during hospitalization [Text1]: 08/20/21 08/21/21 08/21/21 13:07 06:56 06:56 WBC 7.9 RBC 3.80 L Hgb 11.2 L Hct 33.4 L MCV 87.9 MCH 29.5 MCHC 33.5 RDW 13.2 Plt Count 291 MPV 10.6 Immature Gran % (Auto) 0.5 H Neut % (Auto) 61.9 Lymph % (Auto) 21.6 [place] % (Auto) 12.3 H Eos % (Auto) 3.3 Baso % (Auto) 0.4 Lymph # (Auto) 1.7 [place] # (Auto) 1.0 Eos # (Auto) 0.3 Baso # (Auto) 0.0 Abs Immat Gran (auto) 0.04 H Absolute Neuts (auto) 6.4 4.9 Absolute Nucleated RBC 0.000 Nucleated RBC % (auto) 0.0 Sodium Potassium Chloride Carbon Dioxide Anion Gap BUN Creatinine Estim Creat Clear Calc Estimated GFR Random Glucose Estimat Average Glucose 103 Hemoglobin A1c % 5.2 Calcium Total Bilirubin AST ALT Alkaline Phosphatase Total Protein Albumin Triglycerides Cholesterol LDL Cholesterol, Calc HDL Cholesterol Vitamin B12 Folate TSH Free T4 Clozapine Norclozapine [place] COVID-19 ([facility]) COVID-19 [employer] [facility] 08/21/21 08/21/21 08/21/21 06:56 06:56 06:56 WBC RBC Hgb Hct MCV MCH MCHC RDW Plt Count MPV Immature Gran % (Auto) Neut % (Auto) Lymph % (Auto) [place] % (Auto) Eos % (Auto) Baso % (Auto) Lymph # (Auto) [place] # (Auto) Eos # (Auto) Baso # (Auto) Abs Immat Gran (auto) Absolute Neuts (auto) Absolute Nucleated RBC Nucleated RBC % (auto) Sodium 138 Potassium 3.6 Chloride 106 Carbon Dioxide 24 Anion Gap 12 BUN 13 Creatinine 1.03 Estim Creat Clear Calc 76.9 Estimated GFR > 60 Random Glucose 118 H Estimat Average Glucose Hemoglobin A1c % Calcium 9.3 Total Bilirubin 0.7 AST 19 ALT 33 Alkaline Phosphatase 73 Total Protein 6.6 Albumin 4.1 Triglycerides 223 Cholesterol 140 LDL Cholesterol, Calc 71 HDL Cholesterol 25 Vitamin B12 481 Folate 10.6 TSH 1.07 Free T4 1.38 Clozapine Norclozapine [place] 0.83 COVID-19 ([facility]) COVID-19 [employer] 08/21/21 08/25/21 06:56 09:53 WBC RBC Hgb Hct MCV MCH MCHC RDW Plt Count MPV Immature Gran % (Auto) Neut % (Auto) Lymph % (Auto) [place] % (Auto) Eos % (Auto) Baso % (Auto) Lymph # (Auto) [place] # (Auto) Eos # (Auto) Baso # (Auto) Abs Immat Gran (auto) Absolute Neuts (auto) Absolute Nucleated RBC Nucleated RBC % (auto) Sodium Potassium Chloride Carbon Dioxide Anion Gap BUN Creatinine Estim Creat Clear Calc Estimated GFR Random Glucose Estimat Average Glucose Hemoglobin A1c % Calcium Total Bilirubin AST ALT Alkaline Phosphatase Total Protein Albumin Triglycerides Cholesterol LDL Cholesterol, Calc HDL Cholesterol Vitamin B12 Folate TSH Free T4 Clozapine Pending Norclozapine Pending [place] COVID-19 ([facility]) Positive A COVID-19 Clin Com See Note DS: Summary Hospital Course Hospital Course: The patient was initially admitted for exacerbation of psychotic symptoms and manic symptoms. While he was in the emergency room his Clozaril and lithium was titrated please see admission note for further information. While he was in the unit, he was started to being treated for his psychiatric symptoms but he tested positive to COVID, he had some symptoms such as breathing problems and exacerbation of obstructive sleep apnea night. We discussed the case with other providers and we decided to transferred to Medicine for treatment. At this moment, the patient should continue with the same psychiatric medications if not medically contraindicated. Time spent discussing smoking cessation with patient: 3 to 10 minutes Status at Discharge Cognitive/behavioral status at discharge: Still delusional and manic but easily redirectable Functional status at discharge: independent ambulation Overall status at discharge: patient is not back to baseline Time Spent with Patient Time attestation: Total time spent providing and/or coordinating discharge services: Time spent: Less than 30 minutes Discharge Plan Discharge Disposition: [facility] Referrals: Physician,Stephon J [Primary Care Provider] - 1 Week Discharge Medications: No Action No Known Home Meds RF: 0 Discharge Orders: Discharge Order (Routine); Ordered 08/25/21 Ordered By: Martin Marquis Forms: Patient Portal Discharge page Care Plan Goals: Care plan goals were incomplete due to COVID-19 infection in the unit Health Concerns: Continue treatment for COVID night eating Plan of Treatment: When medically stable please transfer back to [facility] Assessment: Elderly male with a long history of schizoaffective disorder admitted for exacerbation of psychosis and avery, transfer to [facility] for treatment but unfortunately he got COVID-19 and transferred to medical unit for treatment.
--- NOTE | 2021-08-25 13:33 | PC.NURSE ---
Pt.s son/activated HCP, Minesh Kumari Jr. notified of pt.'s positive Covid test and transfer to medical unit.
[2021-08-27 15:02] LABS: Clozapine (Clozaril) 397 mcg/L; Norclozapine 244 mcg/L (25-400)
== END 2021-08-25 14:13 | disposition short-term general hospital (02) | DRG 885 ==
PROVIDERS: Social Worker; Admitting Provider Psychiatry & Neurology Psychiatry; Visit Provider Psychiatry & Neurology Psychiatry
DX: F25.0 Schizoaffective disorder, bipolar type (principal); U07.1 COVID-19; G20 Parkinson's disease; I49.5 Sick sinus syndrome; Z95.0 Presence of cardiac pacemaker; E03.9 Hypothyroidism, unspecified; I48.0 Paroxysmal atrial fibrillation; G47.33 Obstructive sleep apnea (adult) (pediatric); Z99.89 Dependence on other enabling machines and devices; Z79.01 Long term (current) use of anticoagulants; Z79.890 Hormone replacement therapy; Z79.899 Other long term (current) drug therapy
CPT/HCPCS: 36415; 80053; 80061; 80159; 80178; 82607; 82746; 83036; 84439; 84443; 85025; 85048; 87635; 93005; 94660

== ENCOUNTER 2021-08-25 11:46 | Inpatient (IN) | payer MEDICARE, MEDICAID, SELFPAY ==
--- NOTE | ~2021-08-25 | XR_ITS ---
EXAMINATION: XR CHEST CLINICAL INFORMATION: COVID 19 COMPARISON: None TECHNIQUE: Portable upright AP view of the chest was obtained. FINDINGS: There is been prior median sternotomy with bipolar pacemaker and atrial and ventricular leads. The heart is normal in size. The vascularity is normal. There is thickening of the right minor fissure which may related to adjacent disc atelectasis or trace fluid in the fissure. Costophrenic angle appears well defined without definite blunting. The lungs show no lobar or segmental airspace consolidation or definite groundglass opacity. There is subsegmental atelectasis right infrahilar region. XR/XR chest 1V IMPRESSION: 1. Prior sternotomy. Bipolar pacemaker. Heart size normal. Vascularity normal. 2. Subsegmental atelectasis right medial base. Disc atelectasis adjacent to minor fissure versus trace fluid in fissure.
--- NOTE | ~2021-08-25 | XR_ITS ---
EXAMINATION: XR CHEST CLINICAL INFORMATION: Fever COMPARISON: Previous chest x-ray July 2021 TECHNIQUE: Frontal view of the chest was obtained. FINDINGS: The cardiac and mediastinal contours are stable. Median sternotomy wires and right subclavian dual chamber pacemaker are noted. The lungs are clear. There is no pleural effusion or pneumothorax. No acute bone abnormality. XR/XR chest 1V IMPRESSION: No evidence for acute disease in the chest.
[2021-08-25] MEDS: Heparin Sodium,Porcine 5,000 UNIT/ML VIAL 5000 UNIT SUBCUT (15:18)
--- NOTE | 2021-08-25 15:34 | PM.IMHP ---
History of Present Illness Date of Service: 08/25/21 <Ernestine Joseph NP - Last Filed: 08/25/21 17:26> Chief Complaint: Covid 19 <Ernestine Joseph NP - Last Filed: 08/25/21 17:26> 65 year old man transferred from [facility] with covis 19. He was admitted to [facility] for Medication management. He had been doing well and psych however due to an outbreak COVID-19 patient was transferred to the medical unit for isolation. At this time he has no complaints chest pain, shortness breath, nausea, vomiting, diarrhea. He does a sitter. We will continue his baseline medications and he will continue to be followed by the psychiatric team. <Ernestine Joseph NP - Last Filed: 08/25/21 17:26> Review of Systems Review of Systems: Denies any recent fever chills or decrease in appetite respiratory reported a cough cardiovascular Denied chest pain gastrointestinal denies any dysphagia abdominal pain nausea vomiting or diarrhea genitourinary denies any dysuria frequency or hematuria musculoskeletal denies any joint pain or swelling neuropsych denies any weakness or seizures all other systems reviewed are negative <Ernestine Joseph NP - Last Filed: 08/25/21 17:26> [facility] Medical History: Medical History History of ETT Hypertension Hypothyroidism Obstructive sleep apnea PAF (paroxysmal atrial fibrillation) Schizoaffective disorder, bipolar type <Ernestine Joseph NP - Last Filed: 08/25/21 17:26> Family History: Family History Mother Breast cancer Father Coronary artery disease Brother Coronary artery disease COPD (chronic obstructive pulmonary disease) Bone cancer Colon polyps <Ernestine Joseph NP - Last Filed: 08/25/21 17:26> Surgical History: Surgical History H/O arthroscopic knee surgery H/O congenital atrial septal defect (ASD) repair Hx laparoscopic cholecystectomy <Ernestine Joseph NP - Last Filed: 08/25/21 17:26> Social History: Social History (Updated 08/25/21 @ 18:05 by Lidya Hancock, MARK) Household Members: Family Housing: House Are you a primary care mgr to a significant other at home: No Do you presently have visiting nurse or other home services: No Patient Tobacco Use Status: Never used Tobacco e-Cigarette/Vaping Use: Never Used Second Hand Smoke Exposure: No Use of substances other than those prescribed or required for medical reasons: No Currently Displaying Signs/Symptoms of Drug Intoxication Withdrawal: No Have you been hit, kicked, punched, or otherwise hurt by someone within the past year? If so, by whom?: No Do you feel safe in your current relationship?: No Is there a partner from a previous relationship who is making you feel unsafe now?: No Are you made to feel afraid or neglected: No Advance Directives: No Advance Directives Information Provided: No Do you have thoughts of harming others: None Do you have a plan to hurt others: No Plan Recently lost weight without trying: No Eating poorly because of decreased appetite: No Nutrition Risks: No Nutritional Risk Poor oral hygiene: No Sexual orientation: Don't Know <Ernestine Joseph NP - Last Filed: 08/25/21 17:26> Meds Allergies/Adverse reactions: Allergies Allergy/AdvReac Type Severity Reaction Status Date / Time house dust Allergy Intermediate watery eyes Verified 08/20/21 11:33 adhesive Allergy Unknown Unknown Verified 08/20/21 12:09 fenofibrate Allergy Unknown Unknown Verified 08/20/21 12:05 Sulfa (Sulfonamide Allergy Unknown unknown Verified 08/20/21 11:33 Antibiotics) tomato Allergy Unknown Unknown Verified 08/20/21 12:07 Yeast Allergy Unknown Unknown Verified 08/20/21 12:08 zolpidem [From Ambien] Allergy Unknown Unknown Verified 08/20/21 12:06 lactose AdvReac Unknown Unknown Verified 08/20/21 12:07 <Ernestine Joseph NP - Last Filed: 08/25/21 17:26> Active Medications: Current Medications Acetaminophen (Acetaminophen 325 Mg Tablet) 650 mg PO Q6H PRN PRN Reason: Pain, Mild (Pain Scale 1-3) Heparin Sodium (Porcine) (Heparin Sodium,Porcine 5,000 Unit/Ml Vial) 5,000 unit SUBCUT Q12H JOSEPHINE Ondansetron HCl (Ondansetron Hcl 4 Mg/2 Ml Vial) 4 mg IVPUSH Q8H PRN PRN Reason: Nausea and Vomiting Sodium Chloride (0.9 % Sodium Chloride Flush 3 Ml Syringe) 3 ml IVFLUSH QSHIFT JOSEPHINE <Ernestine Joseph NP - Last Filed: 08/25/21 17:26> Home medications: Home Medications Medication Instructions Recorded Confirmed Last Taken Type apixaban 5 mg tablet (Eliquis) 1 tab PO BID 08/25/21 08/25/21 Unknown History carvedilol 12.5 mg tablet 1 tab PO BID 08/25/21 08/25/21 Unknown History clozapine 100 mg tablet 150 mg PO BEDTIME 08/25/21 08/25/21 Unknown History clozapine 50 mg tablet 50 mg PO DAILY 08/25/21 08/25/21 Unknown History levothyroxine 175 mcg tablet 1 tab PO DAILY 08/25/21 08/25/21 Unknown History lithium carbonate 300 mg tablet 450 mg PO BID 08/25/21 08/25/21 Unknown History lorazepam 1 mg tablet 1 mg PO Q6H PRN 08/25/21 08/25/21 Unknown History trazodone 100 mg tablet 1 tab PO BEDTIME 08/25/21 08/25/21 Unknown History trazodone 50 mg tablet 50 mg PO BEDTIME PRN 08/25/21 08/25/21 Unknown History <Ernestine Joseph NP - Last Filed: 08/25/21 17:26> Physical Exam Vital Signs and Narrative: Appearing in no acute distress head is normocephalic atraumatic eyes pupils are PERRLA sclera is anicteric mouth throat mucous membranes are intact and moist neck is supple no lymphadenopathy, no JVD noted lung sounds are clear to auscultation heart regular rate rhythm, clear S1, S2 positive bowel sounds, abdomen is soft, nontender neuro patient is alert x3, no focal deficits <Ernestine Joseph NP - Last Filed: 08/25/21 17:26> Results Labs CBC and Chem 7: : 08/25/21 16:25 08/25/21 16:25 <Ernestine Joseph NP - Last Filed: 08/25/21 17:26> Assessment and Plan (1) Schizoaffective disorder, bipolar type: Status: Inactive <Ernestine Joseph NP - Last Filed: 08/25/21 17:26> (2) COVID-19: Status: Acute <Ernestine Joseph NP - Last Filed: 08/25/21 17:26> (3) PAF (paroxysmal atrial fibrillation): Status: Acute <Ernestine Joseph NP - Last Filed: 08/25/21 17:26> 65-year-old man transferred from [facility] to medical floor due to COVID-19. COVID-19. Mostly asymptomatic mild cough Transferred more so for quarantine Follow respiratory status closely will hold off on steroids as patient is not hypoxic History of paroxysmal atrial fibrillation Continue Eliquis and carvedilol Mental health. Continue clozapine, lithium, lorazepam, trazodone Psychiatric team to follow daily Hypothyroidism Continue levothyroxine DVT prophylaxis with Darek Attending Dr. Davis <Ernestine Joseph NP - Last Filed: 08/25/21 17:26> 65-year-old man transferred from [facility] to medical floor due to COVID-19. COVID-19. Mostly asymptomatic mild cough Transferred more so for quarantine Follow respiratory status closely will hold off on steroids as patient is not hypoxic History of paroxysmal atrial fibrillation Continue Eliquis and carvedilol Mental health. Continue clozapine, lithium, lorazepam, trazodone Psychiatric team to follow daily Hypothyroidism Continue levothyroxine DVT prophylaxis with Darek Attending Dr. Davis I have personally examined patient and reviewed chart. I agree with assessment physical exam and plan as outlined by Ms. Jake TAY <Mando Davis, DO - Last Filed: 08/25/21 18:22> Quality Stroke Does the patient have a stroke diagnosis?: No <Ernestine Joseph NP - Last Filed: 08/25/21 17:26> VTE Prior VTE?: No <Ernestine Joseph NP - Last Filed: 08/25/21 17:26> VTE Risk Level:: Medical - moderate - high <Ernestine Joseph NP - Last Filed: 08/25/21 17:26> VTE Device Contraindication: Treatment Not Indicated <Ernestine Joseph NP - Last Filed: 08/25/21 17:26> VTE Drug Contraindication: N/A - Med Ordered <Ernestine Joseph NP - Last Filed: 08/25/21 17:26>
[2021-08-25 16:00] VITALS: BP 137/78; PULSE 87; RESP 18; TEMP 36.6; O2SAT 98
[2021-08-25 16:26] VITALS: BMI 34.7
[2021-08-25 16:35] LABS: Hematocrit 35.1 % (42.0-52.0); Hemoglobin 11.3 g/dl (14.0-18.0); Mean Corpuscular HGB Conc 32.2 g/dl (31.0-36.0); Mean Corpuscular Hemoglobin 28.8 pg (27.0-33.0); Mean Corpuscular Volume 89.5 fL (80.0-98.0); Mean Platelet Volume 10.2 fL (9.4-12.4); Platelet Count 262 X10*3/uL (160-400); Red Blood Count 3.92 X10*6/uL (4.60-5.80); Red Cell Distribution Width 13.8 % (11.0-16.0); White Blood Count 6.3 X10*3/uL (4.8-10.8)
[2021-08-25 16:51] LABS: Anion Gap 10 (12-20); Blood Urea Nitrogen 13 mg/dL (9-16); Calcium 8.8 mg/dL (8.4-10.2); Carbon Dioxide 25 mmol/L (22-29); Chloride 107 mmol/L (96-108); Creatinine Clr Calc Pharmacy 65.6; Estimated Glomerular Filt Rate 60; Glucose Random 109 mg/dL (60-115); Potassium 3.9 mmol/L (3.3-5.1); Sodium 138 mmol/L (135-145)
[2021-08-25 17:00] LABS: Lactate Dehydrogenase 165 U/L (118-273)
[2021-08-25 17:11] LABS: Ferritin 397 ng/mL (20-250)
[2021-08-25 19:43] VITALS: BP 159/77; PULSE 76; RESP 16; TEMP 37.9; O2SAT 96
[2021-08-25] MEDS: Lithium Carbonate 300 MG TABLET 450 MG PO (21:08)
[2021-08-25 21:09] VITALS: BP 159/77; PULSE 76
[2021-08-25] MEDS: cloZAPine 25 MG TABLET 150 MG PO (21:09)
[2021-08-25] MEDS: Apixaban 5 MG TABLET PO (21:09)
[2021-08-25] MEDS: traZODone HCL 100 MG TABLET PO (21:09)
[2021-08-25] MEDS: carvediloL 12.5 MG TABLET PO (21:09)
[2021-08-25 23:39] VITALS: BP 112/54; PULSE 73; RESP 19; TEMP 37.9; O2SAT 95
[2021-08-26 03:59] VITALS: BP 148/76; PULSE 73; RESP 18; TEMP 38; O2SAT 96
[2021-08-26] MEDS: Levothyroxine Sodium 175 MCG TABLET PO (05:34)
[2021-08-26 06:58] VITALS: BP 112/56; PULSE 76; RESP 19; TEMP 36.1; O2SAT 95
[2021-08-26 07:06] LABS: MANUAL DIFF FLAG NO
[2021-08-26 07:07] LABS: Basophils Percent Auto 0.1 % (0-2); Eosinophils Percent Auto 0.5 % (0-4); Hemoglobin 11.7 g/dl (14.0-18.0); Imm Gran Abs Auto 0.04 X10*3/uL (0.00-0.03); Imm Gran Pct Auto 0.5 % (0.0-0.4); Lymphocytes Absolute Auto 0.7 X10*3/uL (1.2-4.9); Lymphocytes Percent Auto 8.5 % (20-40); Mean Corpuscular HGB Conc 32.5 g/dl (31.0-36.0); Mean Corpuscular Hemoglobin 29.1 pg (27.0-33.0); Mean Corpuscular Volume 89.6 fL (80.0-98.0); Mean Platelet Volume 10.2 fL (9.4-12.4); Monocytes Absolute Auto 1.5 X10*3/uL (0.1-1.2); Monocytes Percent Auto 17.3 % (2-11); Neutrophils Absolute Auto 6.2 x10*3/uL (2.0-8.3); Neutrophils Percent Auto 73.1 % (45-73); Platelet Count 269 X10*3/uL (160-400); Red Blood Count 4.02 X10*6/uL (4.60-5.80); Red Cell Distribution Width 13.8 % (11.0-16.0); White Blood Count 8.5 X10*3/uL (4.8-10.8)
[2021-08-26 08:15] LABS: Anion Gap 9 (12-20); Blood Urea Nitrogen 10 mg/dL (9-16); Carbon Dioxide 26 mmol/L (22-29); Chloride 105 mmol/L (96-108); Creatinine Clr Calc Pharmacy 87.3; Estimated Glomerular Filt Rate > 60; Glucose Random 106 mg/dL (60-115); Sodium 136 mmol/L (135-145)
[2021-08-26] MEDS: Lithium Carbonate 300 MG TABLET 450 MG PO ×2 (08:56→20:55)
[2021-08-26 08:57] VITALS: BP 112/56; PULSE 76
[2021-08-26] MEDS: Apixaban 5 MG TABLET PO ×2 (08:57→20:56)
[2021-08-26] MEDS: carvediloL 12.5 MG TABLET PO ×2 (08:57→20:54)
[2021-08-26] MEDS: cloZAPine 25 MG TABLET 50 MG PO (08:57)
--- NOTE | 2021-08-26 09:35 | MHC.CM.PN ---
Addendum entered by Isa Laird 08/26/21 09:45: Per Pts son functional mobility varies greatly. Baseline is independent. When psych ss exacerbate he can be dependent with all functional mobility. Original Note: Male 65 DX Covid+ [place] [facility]. Information was obtained from EMR as well as interview with Pts Son/HCP/POA, Minesh [place]. The Pt has been living @ [facility] since 12/18. He was sent to [facility] for increased psych ss. [facility] discharged Pt to [facility] unit. DP is to return to [place] after a quarantine period 5-10 days.
[2021-08-26 11:01] VITALS: BP 116/67; PULSE 68; RESP 18; TEMP 36.1; O2SAT 94
--- NOTE | 2021-08-26 12:21 | HO.PM.IMPN ---
Subjective Subjective Date of Service: 08/26/21 Review of Systems Follow-up COVID-19, transfer from [facility] No COVID symptoms Denies chest pain, shortness breath, nausea, vomiting, diarrhea All other systems are reviewed and are negative Physical Exam Vital Signs: Vital Signs: Last Vital Signs Temp 97 F 08/26/21 11:01 Pulse 68 08/26/21 11:01 Resp 18 08/26/21 11:01 BP 116/67 08/26/21 11:01 Pulse Ox 94 08/26/21 11:01 BMI result Body Mass Index 34.7 Appearing in no acute distress lung sounds normal expansion heart regular rate rhythm, clear S1, S2 positive bowel sounds, abdomen is soft, nontender neuro patient is alert x3, no focal deficits Objective Data Active Medications Acetaminophen (Acetaminophen 325 Mg Tablet) 650 mg PO Q6H PRN PRN Reason: Pain, Mild (Pain Scale 1-3) Apixaban (Apixaban 5 Mg Tablet) 5 mg PO BID COUNTS INCLUDE 234 BEDS AT THE [facility] Last Admin: 08/26/21 08:57 Dose: 5 mg Documented by: LEA Carvedilol (Carvedilol 12.5 Mg Tablet) 12.5 mg PO BID COUNTS INCLUDE 234 BEDS AT THE [facility]; Protocol Last Admin: 08/26/21 08:57 Dose: 12.5 mg Documented by: LEA Clozapine (Clozapine 25 Mg Tablet) 50 mg PO DAILY COUNTS INCLUDE 234 BEDS AT THE [facility] Last Admin: 08/26/21 08:57 Dose: 50 mg Documented by: LEA Clozapine (Clozapine 25 Mg Tablet) 150 mg PO BEDTIME COUNTS INCLUDE 234 BEDS AT THE [facility] Last Admin: 08/25/21 21:09 Dose: 150 mg Documented by: ТАТЬЯНА Levothyroxine Sodium (Levothyroxine Sodium 175 Mcg Tablet) 175 mcg PO DAILY@0600 COUNTS INCLUDE 234 BEDS AT THE [facility] Last Admin: 08/26/21 05:34 Dose: 175 mcg Documented by: ТАТЬЯНА [place] Carbonate ([place] Carbonate 300 Mg Tablet) 450 mg PO BID COUNTS INCLUDE 234 BEDS AT THE [facility] Last Admin: 08/26/21 08:56 Dose: 450 mg Documented by: LEA Lorazepam (Lorazepam 1 Mg Tablet) 1 mg PO Q6H PRN PRN Reason: Anxiety Ondansetron HCl (Ondansetron Hcl 4 Mg/2 Ml Vial) 4 mg IVPUSH Q8H PRN PRN Reason: Nausea and Vomiting Sodium Chloride (0.9 % Sodium Chloride Flush 3 Ml Syringe) 3 ml IVFLUSH QSHIFT COUNTS INCLUDE 234 BEDS AT THE [facility] Last Admin: 08/26/21 08:56 Dose: Not Given Documented by: LEA Non-Admin Reason: No Access Trazodone HCl (Trazodone Hcl 50 Mg Tablet) 50 mg PO BEDTIME PRN PRN Reason: Insomnia Trazodone HCl (Trazodone Hcl 100 Mg Tablet) 100 mg PO BEDTIME COUNTS INCLUDE 234 BEDS AT THE [facility] Last Admin: 08/25/21 21:09 Dose: 100 mg Documented by: ТАТЬЯНА Labs CBC & Chem 7: 08/26/21 06:49 08/26/21 06:49 Labs: Laboratory Results - last 24 hr 08/25/21 08/25/21 08/25/21 16:25 16:25 16:25 MCV 89.5 MCH 28.8 MCHC 32.2 RDW 13.8 Plt Count 262 MPV 10.2 Immature Gran % (Auto) Neut % (Auto) Lymph % (Auto) [place]ingo % (Auto) Eos % (Auto) Baso % (Auto) Lymph # (Auto) [place] # (Auto) Eos # (Auto) Baso # (Auto) Abs Immat Gran (auto) Absolute Neuts (auto) Absolute Nucleated RBC 0.000 Nucleated RBC % (auto) 0.0 Anion Gap 10 L Estim Creat Clear Calc 65.6 Estimated GFR 60 Random Glucose 109 Calcium 8.8 Ferritin 397 H Lactate Dehydrogenase 165 Procalcitonin 0.30 08/26/21 08/26/21 06:49 06:49 MCV 89.6 MCH 29.1 MCHC 32.5 RDW 13.8 Plt Count 269 MPV 10.2 Immature Gran % (Auto) 0.5 H Neut % (Auto) 73.1 H Lymph % (Auto) 8.5 L Mingo % (Auto) 17.3 H Eos % (Auto) 0.5 Baso % (Auto) 0.1 Lymph # (Auto) 0.7 L Mingo # (Auto) 1.5 H Eos # (Auto) 0.0 Baso # (Auto) 0.0 Abs Immat Gran (auto) 0.04 H Absolute Neuts (auto) 6.2 Absolute Nucleated RBC 0.000 Nucleated RBC % (auto) 0.0 Anion Gap 9 L Estim Creat Clear Calc 87.3 Estimated GFR > 60 Random Glucose 106 Calcium 9.0 Ferritin Lactate Dehydrogenase Procalcitonin Assessment and Plan (1) COVID-19: Status: Acute Assessment and Plan: 65-year-old man transferred from [facility] to medical floor due to COVID-19. COVID-19.? Mostly asymptomatic mild cough Transferred more so for quarantine Follow respiratory status closely will hold off on steroids as patient is not hypoxic History of paroxysmal atrial fibrillation Continue Eliquis and carvedilol Mental health.? Continue clozapine, lithium, lorazepam, trazodone Psychiatric team to follow daily Hypothyroidism Continue levothyroxine DVT prophylaxis with Darek Attending Dr. Dejesus Quality Stroke Does the patient have a stroke diagnosis?: No VTE Prior VTE?: No VTE Risk Level:: Medical - moderate - high VTE Device Contraindication: Treatment Not Indicated VTE Drug Contraindication: N/A - Med Ordered
[2021-08-26 20:00] VITALS: BP 128/68; PULSE 67; RESP 16; TEMP 37.5; O2SAT 96
[2021-08-26 20:54] VITALS: PULSE 70
[2021-08-26] MEDS: traZODone HCL 100 MG TABLET PO (20:56)
[2021-08-26] MEDS: cloZAPine 25 MG TABLET 150 MG PO (20:58)
[2021-08-27] VITALS (10 sets, daily range): BP systolic 109–147; BP diastolic 58–74; PULSE 62–68; RESP 16–20; TEMP 36.6–38.1; O2SAT 92–98
--- NOTE | 2021-08-27 | ECG_ITS ---
Test Reason : ck qtc Blood Pressure : / mmHG Vent. Rate : 065 BPM Atrial Rate : 065 BPM P-R Int : 180 ms QRS Dur : 110 ms QT Int : 400 ms P-R-T Axes : 033 004 -17 degrees QTc Int : 416 ms Normal sinus rhythm Nonspecific T wave abnormality Abnormal ECG When compared with ECG of 20-AUG-2021 13:10, Nonspecific T wave abnormality now evident in Inferior leads Nonspecific T wave abnormality now evident in Lateral leads QT has shortened Referred By: Luisana Rouse Electronically Signed By:Nile Razo
[2021-08-27] MEDS: Levothyroxine Sodium 175 MCG TABLET PO (05:44)
--- NOTE | 2021-08-27 09:59 | P.PNIM_ITS ---
Subjective Subjective Date of Service: 08/27/21 Review of Systems Follow-up COVID-19, transfer from [facility] No COVID symptoms Denies chest pain, shortness breath, nausea, vomiting, diarrhea All other systems are reviewed and are negative Physical Exam Vital Signs: Vital Signs: Last Vital Signs Temp 98.8 F 08/27/21 07:28 Pulse 66 08/27/21 07:28 Resp 18 08/27/21 07:28 BP 147/73 H 08/27/21 07:28 Pulse Ox 96 08/27/21 07:28 BMI result Body Mass Index 34.7 Appearing in no acute distress lungs normal expansion heart regular rate rhythm, clear S1, S2 positive bowel sounds, abdomen is soft, nontender neuro patient is alert x3, no focal deficits Objective Data Active Medications Acetaminophen (Acetaminophen 325 Mg Tablet) 650 mg PO Q6H PRN PRN Reason: Pain, Mild (Pain Scale 1-3) Apixaban (Apixaban 5 Mg Tablet) 5 mg PO BID COUNTS INCLUDE 234 BEDS AT THE [facility] Last Admin: 08/26/21 20:56 Dose: 5 mg Documented by: MARLIN Carvedilol (Carvedilol 12.5 Mg Tablet) 12.5 mg PO BID COUNTS INCLUDE 234 BEDS AT THE [facility]; Protocol Last Admin: 08/26/21 20:54 Dose: 12.5 mg Documented by: MARLIN Clozapine (Clozapine 25 Mg Tablet) 50 mg PO DAILY COUNTS INCLUDE 234 BEDS AT THE [facility] Last Admin: 08/26/21 08:57 Dose: 50 mg Documented by: LEA Clozapine (Clozapine 25 Mg Tablet) 150 mg PO BEDTIME COUNTS INCLUDE 234 BEDS AT THE [facility] Last Admin: 08/26/21 20:58 Dose: 150 mg Documented by: MARLIN Levothyroxine Sodium (Levothyroxine Sodium 175 Mcg Tablet) 175 mcg PO DAILY@0600 COUNTS INCLUDE 234 BEDS AT THE [facility] Last Admin: 08/27/21 05:44 Dose: 175 mcg Documented by: MARLIN [place] Carbonate ([place] Carbonate 300 Mg Tablet) 450 mg PO BID COUNTS INCLUDE 234 BEDS AT THE [facility] Last Admin: 08/26/21 20:55 Dose: 450 mg Documented by: MARLIN Lorazepam (Lorazepam 1 Mg Tablet) 1 mg PO Q6H PRN PRN Reason: Anxiety Ondansetron HCl (Ondansetron Hcl 4 Mg/2 Ml Vial) 4 mg IVPUSH Q8H PRN PRN Reason: Nausea and Vomiting Sodium Chloride (0.9 % Sodium Chloride Flush 3 Ml Syringe) 3 ml IVFLUSH QSHIFT COUNTS INCLUDE 234 BEDS AT THE [facility] Last Admin: 08/26/21 21:06 Dose: Not Given Documented by: MARLIN Non-Admin Reason: No Access Trazodone HCl (Trazodone Hcl 50 Mg Tablet) 50 mg PO BEDTIME PRN PRN Reason: Insomnia Trazodone HCl (Trazodone Hcl 100 Mg Tablet) 100 mg PO BEDTIME COUNTS INCLUDE 234 BEDS AT THE [facility] Last Admin: 08/26/21 20:56 Dose: 100 mg Documented by: MARLIN Labs CBC & Chem 7: 08/26/21 06:49 08/26/21 06:49 Assessment and Plan (1) COVID-19: Status: Acute (2) PAF (paroxysmal atrial fibrillation): Status: Acute Assessment and Plan: 65-year-old man transferred from [facility] psych to medical floor due to COVID-19. COVID-19.? Mostly asymptomatic mild cough Transferred more so for quarantine Follow respiratory status closely will hold off on steroids as patient is not hypoxic History of paroxysmal atrial fibrillation Continue Eliquis and carvedilol Mental health.? Continue clozapine, lithium, lorazepam, trazodone Psychiatric team to follow daily Hypothyroidism Continue levothyroxine DVT prophylaxis with Darek Attending Dr. Dejesus Quality Stroke Does the patient have a stroke diagnosis?: No VTE Prior VTE?: No VTE Risk Level:: Medical - moderate - high VTE Device Contraindication: Treatment Not Indicated VTE Drug Contraindication: N/A - Med Ordered
[2021-08-27] MEDS: Lithium Carbonate 300 MG TABLET 450 MG PO ×2 (10:13→20:41)
[2021-08-27] MEDS: cloZAPine 25 MG TABLET 50 MG PO (10:14)
[2021-08-27] MEDS: Apixaban 5 MG TABLET PO ×2 (10:14→20:41)
[2021-08-27] MEDS: carvediloL 12.5 MG TABLET PO ×2 (10:15→20:41)
--- NOTE | 2021-08-27 15:02 | P.CNPS_ITS ---
History of Present Illness Date of Service: 08/27/21 Chief Complaint: COVID Reason for Consult: patient with schizoaffective disorder, bipolar type. Transferred from geriatric psych unit due to Covid, requiring isolation. Patient receiving atypical antipsychotic, mood stabilizer, and benzodiazepine for mood / agitation stabilization. Requesting physician: Ernestine Joseph Discussed with referring provider: Yes Sources of Information: patient interviewed and chart reviewed HPI Narrative: Patient is a 65-year-old male with a history of schizoaffective disorder bipolar type, brought to ED from jail due to increased disorganized behavior, speech, delusions related to increased religiosity for several weeks. He was admitted to [facility], has been titrated on lithium and clozaril. Patient transferred from Geriatric psych Unit to [facility] on 08/25/2021 due to COVID positive, requiring isolation. He had initially been admitted for exacerbation of psychotic symptoms along with avery. He has been receiving his closet rule on lithium, which has been titrated. Psychiatry service has been asked to follow this patient along with medical team while he is on medical unit. Patient was seen today after lunch. He was sitting up in chair, finishing his l unch. He was smiling, pleasant upon approach. He was able to state his name, and that he was in [place]. Unable to state date or day of week. He was confused, and appears to continue with some delusional thought, as he stated that they took me to [place]. Its been bad in a whispered tone when asked how he was feeling. When asked if he was uncomfortable, he stated no . No overt manic symptoms observed. Unable to carry any further discussion, as he was mumbling unintelligibly during rest of encounter. Sitter reports he has been pleasant, and in good behavioral control today. ANC wnl, no neutropenia noted. Past Psychiatric History: Inpatient: per [facility] documentation, multiple inpt admission since age 15 when he had first psychotic episode. Most recently at [facility] 2005; [facility] 2019. OP: Brittany Nicolas Past medication trial: lithium, clozaril. Medical Evaluation Reviewed: Yes Personal & Social History: Resides at [facility] since for 2020. Son is healthcare proxy and power of employee benefits attorney. Review of Systems Review of Systems Yes all other systems are reviewed and are negative Constitutional: Reports as per HPI Eyes: Reports as per HPI and Reports no additional eye complaints Reports as per HPI Cardiovascular: Reports as per HPI and Reports no additional cardiovascular complaints Respiratory: Reports as per HPI and Reports no additional respiratory complaints Gastrointestinal: Reports as per HPI and Reports no additional gastrointestinal complaints Genitourinary: Reports no additional male genitourinary complaints and Reports as per HPI Musculoskeletal: Reports no additional musculoskeletal complaints and Reports as per HPI Skin/Breast: Reports system reviewed and no additional complaints, except as docu and Reports as per HPI Reports as per HPI and Reports Abnormal speech present (mumbling, inarticulate speech) Psychiatric: Reports no additional psychiatric complaints and Reports as per HPI Endocrine: Reports no additional endocrine complaints and Reports as per HPI [facility] Medical History (Updated 08/27/21 @ 16:18 by Luisana Rouse) History of ETT Hypertension Hypothyroidism Obstructive sleep apnea PAF (paroxysmal atrial fibrillation) Schizoaffective disorder, bipolar type Surgical History H/O arthroscopic knee surgery H/O congenital atrial septal defect (ASD) repair Hx laparoscopic cholecystectomy Diagnostics Vital Signs (24Hr): Vital Signs - 24 hr 08/26/21 20:00 08/26/21 20:54 08/27/21 00:00 Temperature 99.5 F 99.0 F Pulse Rate 67 70 67 Respiratory Rate 16 20 Blood Pressure 128/68 109/58 L Pulse Oximetry 96 92 08/27/21 04:00 08/27/21 07:28 08/27/21 10:15 Temperature 98.8 F 98.8 F Pulse Rate 67 66 66 Respiratory Rate 16 18 Blood Pressure 144/71 H 147/73 H 147/73 H Pulse Oximetry 98 96 08/27/21 11:05 Temperature 99.4 F Pulse Rate 68 Respiratory Rate 18 Blood Pressure 133/70 Pulse Oximetry 95 BMI result Body Mass Index 34.7 Labs Results: 08/26/21 06:49 08/26/21 06:49 Labs: Laboratory Results - last 48 hr 08/25/21 08/25/21 08/25/21 16:25 16:25 16:25 WBC 6.3 RBC 3.92 L Hgb 11.3 L Hct 35.1 L MCV 89.5 MCH 28.8 MCHC 32.2 RDW 13.8 Plt Count 262 MPV 10.2 Immature Gran % (Auto) Neut % (Auto) Lymph % (Auto) [place] % (Auto) Eos % (Auto) Baso % (Auto) Lymph # (Auto) [place] # (Auto) Eos # (Auto) Baso # (Auto) Abs Immat Gran (auto) Absolute Neuts (auto) Absolute Nucleated RBC 0.000 Nucleated RBC % (auto) 0.0 Sodium 138 Potassium 3.9 Chloride 107 Carbon Dioxide 25 Anion Gap 10 L BUN 13 Creatinine 1.21 Estim Creat Clear Calc 65.6 Estimated GFR 60 Random Glucose 109 Calcium 8.8 Ferritin 397 H Lactate Dehydrogenase 165 Procalcitonin 0.30 08/26/21 08/26/21 06:49 06:49 WBC 8.5 RBC 4.02 L Hgb 11.7 L Hct 36.0 L MCV 89.6 MCH 29.1 MCHC 32.5 RDW 13.8 Plt Count 269 MPV 10.2 Immature Gran % (Auto) 0.5 H Neut % (Auto) 73.1 H Lymph % (Auto) 8.5 L [place] % (Auto) 17.3 H Eos % (Auto) 0.5 Baso % (Auto) 0.1 Lymph # (Auto) 0.7 L [place] # (Auto) 1.5 H Eos # (Auto) 0.0 Baso # (Auto) 0.0 Abs Immat Gran (auto) 0.04 H Absolute Neuts (auto) 6.2 Absolute Nucleated RBC 0.000 Nucleated RBC % (auto) 0.0 Sodium 136 Potassium 4.0 Chloride 105 Carbon Dioxide 26 Anion Gap 9 L BUN 10 Creatinine 0.91 Estim Creat Clear Calc 87.3 Estimated GFR > 60 Random Glucose 106 Calcium 9.0 Ferritin Lactate Dehydrogenase Procalcitonin Imaging Radiology Impressions: ITS Impressions Chest X-Ray 08/25/21 15:32 IMPRESSION: 1. Prior sternotomy. Bipolar pacemaker. Heart size normal. Vascularity normal. 2. Subsegmental atelectasis right medial base. Disc atelectasis adjacent to minor fissure versus trace fluid in fissure. Mental Status Exam Mental Status Exam Narrative: Sitting up in chair in room. Wearing hospital gown. Fair hygiene, in NAD. No agitation or retardation noted, no involuntary movements noted, motor activity calm. Ambulation not observed. No cogwheeling or rigidity noted. Patient Appearance: Disheveled Patient Orientation: Person and Place (states [place]) Level of Consciousness: Awake and Disoriented Patient Behavior: Appropriate, Cooperative and Good Eye Contact Mood Description: Suspicious and Appropriate Affect Description: Calm, Suspicious and Appropriate Patient Cognition Impaired: Yes Ability to Follow Directions: Fair Speech Pattern: Mumbled and Poor Articulation Memory Description: Recent Impaired and Working Impaired Hallucinations: None (did not appear to be responding to any internal stimuli, and did not report.) Delusions: Present (guarded) Thought Process: Illogical Thought Content: positive for Disoriented, positive for Loose Associations, positive for Tangential and positive for Disorganized Judgement: Poor Judgement and Insight: impaired insight and judgment. Medications Medications Current Medications Acetaminophen (Acetaminophen 325 Mg Tablet) 650 mg PO Q6H PRN PRN Reason: Pain, Mild (Pain Scale 1-3) Apixaban (Apixaban 5 Mg Tablet) 5 mg PO BID [facility] Last Admin: 08/27/21 10:14 Dose: 5 mg Documented by: Carvedilol (Carvedilol 12.5 Mg Tablet) 12.5 mg PO BID [facility]; Protocol Last Admin: 08/27/21 10:15 Dose: 12.5 mg Documented by: Clozapine (Clozapine 25 Mg Tablet) 50 mg PO DAILY [facility] Last Admin: 08/27/21 10:14 Dose: 50 mg Documented by: Clozapine (Clozapine 25 Mg Tablet) 150 mg PO BEDTIME [facility] Last Admin: 08/26/21 20:58 Dose: 150 mg Documented by: Levothyroxine Sodium (Levothyroxine Sodium 175 Mcg Tablet) 175 mcg PO DAILY@0600 [facility] Last Admin: 08/27/21 05:44 Dose: 175 mcg Documented by: [place] Carbonate ([place] Carbonate 300 Mg Tablet) 450 mg PO BID [facility] Last Admin: 08/27/21 10:13 Dose: 450 mg Documented by: Lorazepam (Lorazepam 1 Mg Tablet) 1 mg PO Q6H PRN PRN Reason: Anxiety Ondansetron HCl (Ondansetron Hcl 4 Mg/2 Ml Vial) 4 mg IVPUSH Q8H PRN PRN Reason: Nausea and Vomiting Sodium Chloride (0.9 % Sodium Chloride Flush 3 Ml Syringe) 3 ml IVFLUSH QSHIFT [facility] Last Admin: 08/27/21 10:14 Dose: Not Given Documented by: Trazodone HCl (Trazodone Hcl 50 Mg Tablet) 50 mg PO BEDTIME PRN PRN Reason: Insomnia Trazodone HCl (Trazodone Hcl 100 Mg Tablet) 100 mg PO BEDTIME [facility] Last Admin: 08/26/21 20:56 Dose: 100 mg Documented by: Allergies Allergies Allergy/AdvReac Type Severity Reaction Status Date / Time house dust Allergy Intermediate watery eyes Verified 08/20/21 11:33 adhesive Allergy Unknown Unknown Verified 08/20/21 12:09 fenofibrate Allergy Unknown Unknown Verified 08/20/21 12:05 Sulfa (Sulfonamide Allergy Unknown unknown Verified 08/20/21 11:33 Antibiotics) tomato Allergy Unknown Unknown Verified 08/20/21 12:07 Yeast Allergy Unknown Unknown Verified 08/20/21 12:08 zolpidem [From Ambien] Allergy Unknown Unknown Verified 08/20/21 12:06 lactose AdvReac Unknown Unknown Verified 08/20/21 12:07 Assessment & Plan Assessment & Plan (1) Schizoaffective disorder, bipolar type: Status: Acute Code(s): F25.0 - Schizoaffective disorder, bipolar type Assessment and Plan: Patient pleasant and cooperative upon approach. Somewhat disheveled in appearance. Sitting up in chair, had finished lunch. Appears stable, although continues disoriented and with delusional thought process. Sitter reports has been cooperative today, no agitation or acting out observed. No complaints or side effects. Eating and sleeping well. ANC normal today. Assessment and Plan: 1. Labs ordered include lithium level and clozapine level, for tomorrow am. 2. EKG ordered to monitor Qtc. 3. Continue current medications as prescribed. These have been shared with provider Ernestine Joseph NP, via secure electronic messaging system. Psychiatry service will continue to follow this patient along with you while he is inpatient on medical floor. I spent minutes with the patient and/or on the patient floor today, greater than?50% of which was spent counseling/coordinating care. Patient educated on: therapeutic strategies Informed Consent: does not understand
[2021-08-27] MEDS: Acetaminophen 325 MG TABLET 650 MG PO (16:33)
[2021-08-27] MEDS: cloZAPine 25 MG TABLET 150 MG PO (20:40)
[2021-08-27] MEDS: 0.9 % Sodium Chloride Flush 3 ML SYRINGE IVFLUSH (20:41)
[2021-08-27] MEDS: traZODone HCL 100 MG TABLET PO (21:27)
[2021-08-28] VITALS (7 sets, daily range): BP systolic 125–142; BP diastolic 60–81; PULSE 65–71; RESP 16–20; TEMP 36.4–37; O2SAT 95–97
[2021-08-28] MEDS: Levothyroxine Sodium 175 MCG TABLET PO (04:44)
[2021-08-28 08:41] LABS: Lithium 0.84 mmol/L (0.60-1.20)
[2021-08-28] MEDS: cloZAPine 25 MG TABLET 50 MG PO (09:23)
[2021-08-28] MEDS: Apixaban 5 MG TABLET PO ×2 (09:23→22:51)
[2021-08-28] MEDS: Lithium Carbonate 300 MG TABLET 450 MG PO ×2 (09:23→22:49)
[2021-08-28] MEDS: carvediloL 12.5 MG TABLET PO ×2 (09:24→22:48)
--- NOTE | 2021-08-28 17:29 | HO.PM.IMPN ---
Subjective Subjective Date of Service: 08/28/21 Interval History: seen and examined this morning follow up for covid 19 admitted from the medical center due to covid 19+, no sob, no cough reports seeing crows and catching them in his urinal Review of Systems Review of Systems: Yes all other systems are reviewed and are negative Constitutional Constitutional: Denies chills and Denies fever(s) Cardiovascular Cardiovascular: Denies chest pain Respiratory Respiratory: Denies cough Gastrointestinal Gastrointestinal: Denies abdominal pain Physical Exam Vital Signs: Vital Signs: Last Vital Signs Temp 98.6 F 08/28/21 16:00 Pulse 68 08/28/21 16:00 Resp 18 08/28/21 16:00 BP 136/68 08/28/21 16:00 Pulse Ox 96 08/28/21 16:00 BMI result Body Mass Index 34.7 Const: General: comfortable, no acute distress, alert and awake Nutritional Appearance: well nourished HENMT: Head: Yes normocephalic and Yes atraumatic Eyes: Sclerae: sclerae normal Resp: Effort & Inspection: normal respiratory effort and no respiratory distress Cardio: Rate: regular rate Rhythm: regular rhythm GI: Palpation (GI): Soft to palpation and nontender Neuro: Cranial nerves: Yes CN's II-XII intact bilaterally and Yes Bilaterally intact EOM present Extrem: Other: able to move all 4 extremities spontaneously Objective Data Active Medications Acetaminophen (Acetaminophen 325 Mg Tablet) 650 mg PO Q6H PRN PRN Reason: Pain, Mild (Pain Scale 1-3) Last Admin: 08/27/21 16:33 Dose: 650 mg Documented by: ALYSA Apixaban (Apixaban 5 Mg Tablet) 5 mg PO BID [facility] Last Admin: 08/28/21 09:23 Dose: 5 mg Documented by: SAJAN Carvedilol (Carvedilol 12.5 Mg Tablet) 12.5 mg PO BID [facility]; Protocol Last Admin: 08/28/21 09:24 Dose: 12.5 mg Documented by: SAJAN Clozapine (Clozapine 25 Mg Tablet) 50 mg PO DAILY [facility] Last Admin: 08/28/21 09:23 Dose: 50 mg Documented by: SAJAN Clozapine (Clozapine 25 Mg Tablet) 150 mg PO BEDTIME [facility] Last Admin: 08/27/21 20:40 Dose: 150 mg Documented by: ALYSA Clozapine (Clozapine 25 Mg Tablet) 25 mg PO DAILY@1330 [facility] Levothyroxine Sodium (Levothyroxine Sodium 175 Mcg Tablet) 175 mcg PO DAILY@0600 [facility] Last Admin: 08/28/21 04:44 Dose: 175 mcg Documented by: SERAFIN [place] Carbonate ([place] Carbonate 300 Mg Tablet) 450 mg PO BID [facility] Last Admin: 08/28/21 09:23 Dose: 450 mg Documented by: SAJAN Lorazepam (Lorazepam 1 Mg Tablet) 1 mg PO Q6H PRN PRN Reason: Anxiety Ondansetron HCl (Ondansetron Hcl 4 Mg/2 Ml Vial) 4 mg IVPUSH Q8H PRN PRN Reason: Nausea and Vomiting Sodium Chloride (0.9 % Sodium Chloride Flush 3 Ml Syringe) 3 ml IVFLUSH QSHIFT [facility] Last Admin: 08/28/21 16:45 Dose: Not Given Documented by: SAJAN Non-Admin Reason: No Access Trazodone HCl (Trazodone Hcl 50 Mg Tablet) 50 mg PO BEDTIME PRN PRN Reason: Insomnia Trazodone HCl (Trazodone Hcl 100 Mg Tablet) 100 mg PO BEDTIME [facility] Last Admin: 08/27/21 21:27 Dose: 100 mg Documented by: ALYSA Labs CBC & Chem 7: 08/26/21 06:49 08/26/21 06:49 Labs: Laboratory Results - last 24 hr 08/28/21 08:01 [place] 0.84 Assessment and Plan (1) PAF (paroxysmal atrial fibrillation): Status: Acute (2) COVID-19: Status: Acute (3) Schizoaffective disorder, bipolar type: Status: Acute Assessment and Plan: 65-year-old man transferred from [facility] to medical floor due to COVID-19. COVID-19.? Mostly asymptomatic mild cough Transferred more so for quarantine Follow respiratory status closely will hold off on steroids as patient is not hypoxic History of paroxysmal atrial fibrillation Continue Eliquis and carvedilol Mental health.? Continue clozapine, lithium, lorazepam, trazodone Psychiatric team to follow daily Hypothyroidism Continue levothyroxine DVT prophylaxis with Darek Attending Dr. Dejesus Quality Stroke Does the patient have a stroke diagnosis?: No VTE Prior VTE?: No VTE Risk Level:: Medical - moderate - high VTE Device Contraindication: Treatment Not Indicated VTE Drug Contraindication: N/A - Med Ordered
[2021-08-28] MEDS: Acetaminophen 325 MG TABLET 650 MG PO (18:59)
[2021-08-28] MEDS: cloZAPine 25 MG TABLET 150 MG PO (22:45)
[2021-08-28] MEDS: traZODone HCL 100 MG TABLET PO (22:49)
[2021-08-29] VITALS (7 sets, daily range): BP systolic 124–145; BP diastolic 73–89; PULSE 62–636; RESP 18; TEMP 36.6–37.8; O2SAT 94–97
[2021-08-29 06:31] LABS: MANUAL DIFF FLAG NO
[2021-08-29] MEDS: Levothyroxine Sodium 175 MCG TABLET PO (06:36)
[2021-08-29 06:40] LABS: Basophils Percent Auto 0.1 % (0-2); Eosinophils Absolute Auto 0.3 X10*3/uL (0.0-0.4); Eosinophils Percent Auto 4.7 % (0-4); Hematocrit 34.7 % (42.0-52.0); Hemoglobin 11.3 g/dl (14.0-18.0); Imm Gran Abs Auto 0.05 X10*3/uL (0.00-0.03); Imm Gran Pct Auto 0.7 % (0.0-0.4); Lymphocytes Absolute Auto 1.3 X10*3/uL (1.2-4.9); Lymphocytes Percent Auto 17.7 % (20-40); Mean Corpuscular HGB Conc 32.6 g/dl (31.0-36.0); Mean Corpuscular Hemoglobin 28.8 pg (27.0-33.0); Mean Corpuscular Volume 88.3 fL (80.0-98.0); Mean Platelet Volume 11.2 fL (9.4-12.4); Monocytes Absolute Auto 0.8 X10*3/uL (0.1-1.2); Monocytes Percent Auto 11.5 % (2-11); Neutrophils Absolute Auto 4.6 x10*3/uL (2.0-8.3); Neutrophils Percent Auto 65.3 % (45-73); Platelet Count 266 X10*3/uL (160-400); Red Blood Count 3.93 X10*6/uL (4.60-5.80); Red Cell Distribution Width 13.4 % (11.0-16.0); White Blood Count 7.1 X10*3/uL (4.8-10.8)
[2021-08-29 07:03] LABS: Anion Gap 11 (12-20); Blood Urea Nitrogen 14 mg/dL (9-16); Calcium 8.5 mg/dL (8.4-10.2); Carbon Dioxide 24 mmol/L (22-29); Chloride 105 mmol/L (96-108); Creatinine Clr Calc Pharmacy 91.3; Estimated Glomerular Filt Rate > 60; Glucose Random 102 mg/dL (60-115); Potassium 4.1 mmol/L (3.3-5.1); Sodium 136 mmol/L (135-145)
[2021-08-29] MEDS: Apixaban 5 MG TABLET PO ×2 (09:09→22:01)
[2021-08-29] MEDS: Lithium Carbonate 300 MG TABLET 450 MG PO ×2 (09:09→22:02)
[2021-08-29] MEDS: carvediloL 12.5 MG TABLET PO ×2 (09:10→22:01)
[2021-08-29] MEDS: cloZAPine 25 MG TABLET 50 MG PO (09:10)
--- NOTE | 2021-08-29 12:06 | P.PNIM_ITS ---
Subjective Subjective Date of Service: 08/29/21 Interval History: seen and examined this morning follow up for covid 19 no cough, no shortness of breath Review of Systems Review of Systems: Yes all other systems are reviewed and are negative Constitutional Constitutional: Denies chills and Denies fever(s) Cardiovascular Cardiovascular: Denies chest pain Respiratory Respiratory: Denies cough Gastrointestinal Gastrointestinal: Denies abdominal pain Physical Exam Verdana 4l Vital Signs: Verdana 4d Verdana 4d Vital Signs: Verdana 4d Verdana 4Bd Last Vital Signs Verdana 4d [place] Rounder New 4d [place] Edge Rounder New 4d Temp 97.9 F 08/29/21 11:34 [place] Rounder New 4d Pulse 64 08/29/21 11:34 [place] Rounder NewNew 4d Resp 18 08/29/21 11:34 BP 136/73 08/29/21 11:34 Pulse Ox 97 08/29/21 11:34 BMI result Body Mass Index 34.7 Const: General: comfortable, no acute distress, alert and awake Nutritional Appearance: well nourished HENMT: Head: Yes normocephalic and Yes atraumatic Eyes: Sclerae: sclerae normal Resp: Effort & Inspection: normal respiratory effort and no respiratory distress Cardio: Rate: regular rate Rhythm: regular rhythm GI: Palpation (GI): Soft to palpation and nontender Neuro: Cranial nerves: Yes CN's II-XII intact bilaterally and Yes Bilaterally intact EOM present Extrem: Other: able to move all 4 extremities spontaneously Objective Data Active Medications Acetaminophen (Acetaminophen 325 Mg Tablet) 650 mg PO Q6H PRN PRN Reason: Pain, Mild (Pain Scale 1-3) Last Admin: 08/28/21 18:59 Dose: 650 mg Documented by: SAJAN Apixaban (Apixaban 5 Mg Tablet) 5 mg PO BID [facility] Last Admin: 08/29/21 09:09 Dose: 5 mg Documented by: JASS Carvedilol (Carvedilol 12.5 Mg Tablet) 12.5 mg PO BID [facility]; Protocol Last Admin: 08/29/21 09:10 Dose: 12.5 mg Documented by: JASS Clozapine (Clozapine 25 Mg Tablet) 50 mg PO DAILY [facility] Last Admin: 08/29/21 09:10 Dose: 50 mg Documented by: JASS Clozapine (Clozapine 25 Mg Tablet) 150 mg PO BEDTIME [facility] Last Admin: 08/28/21 22:45 Dose: 150 mg Documented by: VASQUEZ Clozapine (Clozapine 25 Mg Tablet) 25 mg PO DAILY@1330 [facility] Levothyroxine Sodium (Levothyroxine Sodium 175 Mcg Tablet) 175 mcg PO DAILY@0600 [facility] Last Admin: 08/29/21 06:36 Dose: 175 mcg Documented by: VASQUEZ [place] Carbonate ([place] Carbonate 300 Mg Tablet) 450 mg PO BID [facility] Last Admin: 08/29/21 09:09 Dose: 450 mg Documented by: JASS Lorazepam (Lorazepam 1 Mg Tablet) 1 mg PO Q6H PRN PRN Reason: Anxiety Ondansetron HCl (Ondansetron Hcl 4 Mg/2 Ml Vial) 4 mg IVPUSH Q8H PRN PRN Reason: Nausea and Vomiting Sodium Chloride (0.9 % Sodium Chloride Flush 3 Ml Syringe) 3 ml IVFLUSH QSHIFT [facility] Last Admin: 08/29/21 09:09 Dose: Not Given Documented by: JASS Non-Admin Reason: no IV Trazodone HCl (Trazodone Hcl 50 Mg Tablet) 50 mg PO BEDTIME PRN PRN Reason: Insomnia Trazodone HCl (Trazodone Hcl 100 Mg Tablet) 100 mg PO BEDTIME [facility] Last Admin: 08/28/21 22:49 Dose: 100 mg Documented by: VASQUEZ Labs CBC & Chem 7: 08/29/21 05:44 08/29/21 05:44 Labs: Laboratory Results - last 24 hr 08/29/21 08/29/21 05:44 05:44 MCV 88.3 MCH 28.8 MCHC 32.6 RDW 13.4 Plt Count 266 MPV 11.2 Immature Gran % (Auto) 0.7 H Neut % (Auto) 65.3 Lymph % (Auto) 17.7 L [place] % (Auto) 11.5 H Eos % (Auto) 4.7 H Baso % (Auto) 0.1 Lymph # (Auto) 1.3 [place] # (Auto) 0.8 Eos # (Auto) 0.3 Baso # (Auto) 0.0 Abs Immat Gran (auto) 0.05 H Absolute Neuts (auto) 4.6 Absolute Nucleated RBC 0.000 Nucleated RBC % (auto) 0.0 Anion Gap 11 L Estim Creat Clear Calc 91.3 Estimated GFR > 60 Random Glucose 102 Calcium 8.5 Assessment and Plan (1) Schizoaffective disorder, bipolar type: Status: Acute (2) COVID-19: Status: Acute (3) PAF (paroxysmal atrial fibrillation): Status: Acute Assessment and Plan: This is a 65 year old male with a PMH of PAF on Eliquis, SSS - s/p PPM, HTN, NIRMAL on CPAP, Bipolar/Schizoaffective COVID-19.? Transferred primarily for quarantine not requiring supplemental oxygen Follow respiratory status closely will hold off on steroids as patient is not hypoxic paroxysmal atrial fibrillation Continue Eliquis and carvedilol Mental health.? Continue clozapine, lithium, lorazepam, trazodone Psychiatric team to follow dialy Hypothyroidism Continue levothyroxine NIRMAL cpap DVT prophylaxis with Darek Attending Dr. Cortes Quality Stroke Does the patient have a stroke diagnosis?: No VTE Prior VTE?: No VTE Risk Level:: Medical - moderate - high VTE Device Contraindication: Treatment Not Indicated VTE Drug Contraindication: N/A - Med Ordered
[2021-08-29] MEDS: cloZAPine 25 MG TABLET PO (13:57)
--- NOTE | 2021-08-29 15:58 | PC.NURSE ---
Report given to Kim FLORES to assume care
--- NOTE | 2021-08-29 17:38 | PC.NURSE ---
Took over patient care around 1500 for 4 hours. Pt is Alert and oriented to self only. Pleasantly confused, sociable (loves to talk). Telemetry SR 60's. VSS. LS-dim throughout. No cough or sob noted. New bipap ordered for sleep tonight due to sleep apnea (will pass along in report). BS+. Pt denies n/v/d. Awaiting dinner. No IV access-MD aware. Pt is sitting in recliner watching tv with call sanches in place and camera in room for patient safety. Skin intact. No c/o pain/sob. Will continue to monitor.
[2021-08-29] MEDS: traZODone HCL 100 MG TABLET PO (22:01)
[2021-08-29] MEDS: cloZAPine 25 MG TABLET 150 MG PO (22:01)
[2021-08-29] MEDS: 0.9 % Sodium Chloride Flush 3 ML SYRINGE IVFLUSH (22:02)
--- NOTE | 2021-08-29 23:52 | PC.RT ---
Pt refusing CPAP at this time; will return to reassess.
[2021-08-30] VITALS (9 sets, daily range): BP systolic 124–152; BP diastolic 64–76; PULSE 63–71; RESP 18–20; TEMP 36.2–37.7; O2SAT 94–97
[2021-08-30] MEDS: Levothyroxine Sodium 175 MCG TABLET PO (07:18)
[2021-08-30] MEDS: Lithium Carbonate 300 MG TABLET 450 MG PO ×2 (08:45→20:51)
[2021-08-30] MEDS: cloZAPine 25 MG TABLET 50 MG PO (08:46)
[2021-08-30] MEDS: Apixaban 5 MG TABLET PO ×2 (08:46→20:51)
[2021-08-30] MEDS: carvediloL 12.5 MG TABLET PO ×2 (08:46→20:53)
[2021-08-30] MEDS: LORazepam 1 MG TABLET PO (08:46)
[2021-08-30] MEDS: cloZAPine 25 MG TABLET PO (12:26)
--- NOTE | 2021-08-30 13:07 | HO.PM.IMPN ---
Subjective Subjective Date of Service: 08/30/21 Interval History: seen and examined this morning follow up for covid denies cough or sob although witnessed dry cough Review of Systems Review of Systems: Yes all other systems are reviewed and are negative Constitutional Constitutional: Denies chills and Denies fever(s) Cardiovascular Cardiovascular: Denies chest pain Gastrointestinal Gastrointestinal: Denies abdominal pain Physical Exam Vital Signs: Vital Signs: Last Vital Signs Temp 97.9 F 08/30/21 11:41 Pulse 66 08/30/21 11:41 Resp 18 08/30/21 11:41 BP 124/69 08/30/21 11:41 Pulse Ox 96 08/30/21 11:41 BMI result Body Mass Index 34.7 Const: General: comfortable, no acute distress, alert and awake Nutritional Appearance: well nourished HENMT: Head: Yes normocephalic and Yes atraumatic Eyes: Sclerae: sclerae normal Resp: Effort & Inspection: normal respiratory effort and no respiratory distress Cardio: Rate: regular rate Rhythm: regular rhythm GI: Palpation (GI): Soft to palpation and nontender Neuro: Cranial nerves: Yes CN's II-XII intact bilaterally and Yes Bilaterally intact EOM present Extrem: Other: able to move all 4 extremities spontaneously Objective Data Active Medications Acetaminophen (Acetaminophen 325 Mg Tablet) 650 mg PO Q6H PRN PRN Reason: Pain, Mild (Pain Scale 1-3) Last Admin: 08/28/21 18:59 Dose: 650 mg Documented by: SAJAN Apixaban (Apixaban 5 Mg Tablet) 5 mg PO BID [facility] Last Admin: 08/30/21 08:46 Dose: 5 mg Documented by: EVERETT Carvedilol (Carvedilol 12.5 Mg Tablet) 12.5 mg PO BID [facility]; Protocol Last Admin: 08/30/21 08:46 Dose: 12.5 mg Documented by: EVERETT Clozapine (Clozapine 25 Mg Tablet) 50 mg PO DAILY [facility] Last Admin: 08/30/21 08:46 Dose: 50 mg Documented by: EVERETT Clozapine (Clozapine 25 Mg Tablet) 150 mg PO BEDTIME [facility] Last Admin: 08/29/21 22:01 Dose: 150 mg Documented by: DAVID Clozapine (Clozapine 25 Mg Tablet) 25 mg PO DAILY@1330 [facility] Last Admin: 08/30/21 12:26 Dose: 25 mg Documented by: SAJAN Levothyroxine Sodium (Levothyroxine Sodium 175 Mcg Tablet) 175 mcg PO DAILY@0600 [facility] Last Admin: 08/30/21 07:18 Dose: 175 mcg Documented by: DAVID [place] Carbonate ([place] Carbonate 300 Mg Tablet) 450 mg PO BID [facility] Last Admin: 08/30/21 08:45 Dose: 450 mg Documented by: EVERETT Lorazepam (Lorazepam 1 Mg Tablet) 1 mg PO Q6H PRN PRN Reason: Anxiety Last Admin: 08/30/21 08:46 Dose: 1 mg Documented by: EVERETT Ondansetron HCl (Ondansetron Hcl 4 Mg/2 Ml Vial) 4 mg IVPUSH Q8H PRN PRN Reason: Nausea and Vomiting Sodium Chloride (0.9 % Sodium Chloride Flush 3 Ml Syringe) 3 ml IVFLUSH QSHIFT [facility] Last Admin: 08/30/21 08:45 Dose: Not Given Documented by: EVERETT Non-Admin Reason: No Access Trazodone HCl (Trazodone Hcl 50 Mg Tablet) 50 mg PO BEDTIME PRN PRN Reason: Insomnia Trazodone HCl (Trazodone Hcl 100 Mg Tablet) 100 mg PO BEDTIME [facility] Last Admin: 08/29/21 22:01 Dose: 100 mg Documented by: DAVID Labs CBC & Chem 7: 08/29/21 05:44 08/29/21 05:44 Assessment and Plan (1) COVID-19: Status: Acute (2) Schizoaffective disorder, bipolar type: Status: Acute (3) PAF (paroxysmal atrial fibrillation): Status: Acute Assessment and Plan: This is a 65 year old male with a PMH of PAF on Eliquis, SSS - s/p PPM, HTN, NIRMAL on CPAP, Bipolar/Schizoaffective COVID-19.? Transferred primarily for quarantine not requiring supplemental oxygen Follow respiratory status closely will hold off on steroids as patient is not hypoxic paroxysmal atrial fibrillation Continue Eliquis and carvedilol Mood Continue clozapine, lithium, lorazepam, trazodone Psychiatric team to follow daily Hypothyroidism TSH from 08/21 wnl Continue levothyroxine NIRMAL cpap DVT prophylaxis with Darek Attending Dr. Cortes Quality Stroke Does the patient have a stroke diagnosis?: No VTE Prior VTE?: No VTE Risk Level:: Medical - moderate - high VTE Device Contraindication: Treatment Not Indicated VTE Drug Contraindication: N/A - Med Ordered
[2021-08-30] MEDS: traZODone HCL 100 MG TABLET PO (20:51)
[2021-08-30] MEDS: cloZAPine 25 MG TABLET 150 MG PO (20:52)
[2021-08-31 03:09] VITALS: BP 120/53; PULSE 57; RESP 18; TEMP 36.3; O2SAT 95
[2021-08-31] MEDS: Levothyroxine Sodium 175 MCG TABLET PO (04:48)
[2021-08-31 08:00] VITALS: BP 155/77; PULSE 63; RESP 16; TEMP 36.4; O2SAT 97
[2021-08-31] MEDS: cloZAPine 25 MG TABLET 50 MG PO (09:03)
[2021-08-31] MEDS: carvediloL 12.5 MG TABLET PO ×2 (09:03→21:52)
[2021-08-31] MEDS: Lithium Carbonate 300 MG TABLET 450 MG PO ×2 (09:03→21:51)
[2021-08-31] MEDS: Apixaban 5 MG TABLET PO ×2 (09:04→21:52)
[2021-08-31 11:39] VITALS: BP 133/63; PULSE 67; RESP 19; TEMP 36.6; O2SAT 91
--- NOTE | 2021-08-31 15:06 | HO.PM.IMPN ---
Subjective Subjective Date of Service: 08/31/21 Interval History: seen and examined this morning follow up for covid 19 denies shortness of breath, no coughing noted this am Review of Systems Review of Systems: Yes all other systems are reviewed and are negative Constitutional Constitutional: Denies chills and Denies fever(s) Cardiovascular Cardiovascular: Denies chest pain Respiratory Respiratory: Denies cough Gastrointestinal Gastrointestinal: Denies abdominal pain Physical Exam Vital Signs: Vital Signs: Last Vital Signs Temp 97.8 F 08/31/21 11:39 Pulse 67 08/31/21 11:39 Resp 19 08/31/21 11:39 BP 133/63 08/31/21 11:39 Pulse Ox 91 L 08/31/21 11:39 BMI result Body Mass Index 34.7 Const: General: comfortable, no acute distress, alert and awake Nutritional Appearance: well nourished HENMT: Head: Yes normocephalic and Yes atraumatic Eyes: Sclerae: sclerae normal Resp: Effort & Inspection: normal respiratory effort and no respiratory distress Cardio: Rate: regular rate Rhythm: regular rhythm GI: Palpation (GI): Soft to palpation and nontender Neuro: Cranial nerves: Yes CN's II-XII intact bilaterally and Yes Bilaterally intact EOM present Extrem: Other: able to move all 4 extremities spontaneously Objective Data Active Medications Acetaminophen (Acetaminophen 325 Mg Tablet) 650 mg PO Q6H PRN PRN Reason: Pain, Mild (Pain Scale 1-3) Last Admin: 08/28/21 18:59 Dose: 650 mg Documented by: SAJAN Apixaban (Apixaban 5 Mg Tablet) 5 mg PO BID [facility] Last Admin: 08/31/21 09:04 Dose: 5 mg Documented by: NYASIA Carvedilol (Carvedilol 12.5 Mg Tablet) 12.5 mg PO BID [facility]; Protocol Last Admin: 08/31/21 09:03 Dose: 12.5 mg Documented by: NYASIA Clozapine (Clozapine 25 Mg Tablet) 50 mg PO DAILY [facility] Last Admin: 08/31/21 09:03 Dose: 50 mg Documented by: NYASIA Clozapine (Clozapine 25 Mg Tablet) 150 mg PO BEDTIME [facility] Last Admin: 08/30/21 20:52 Dose: 150 mg Documented by: FATMATA Clozapine (Clozapine 25 Mg Tablet) 25 mg PO DAILY@1330 [facility] Last Admin: 08/30/21 12:26 Dose: 25 mg Documented by: SAJAN Levothyroxine Sodium (Levothyroxine Sodium 175 Mcg Tablet) 175 mcg PO DAILY@0600 [facility] Last Admin: 08/31/21 04:48 Dose: 175 mcg Documented by: FATMATA [place] Carbonate ([place] Carbonate 300 Mg Tablet) 450 mg PO BID [facility] Last Admin: 08/31/21 09:03 Dose: 450 mg Documented by: NYASIA Ondansetron HCl (Ondansetron Hcl 4 Mg/2 Ml Vial) 4 mg IVPUSH Q8H PRN PRN Reason: Nausea and Vomiting Sodium Chloride (0.9 % Sodium Chloride Flush 3 Ml Syringe) 3 ml IVFLUSH QSHIFT [facility] Last Admin: 08/31/21 09:02 Dose: Not Given Documented by: NYASIA Non-Admin Reason: No Access Trazodone HCl (Trazodone Hcl 50 Mg Tablet) 50 mg PO BEDTIME PRN PRN Reason: Insomnia Trazodone HCl (Trazodone Hcl 100 Mg Tablet) 100 mg PO BEDTIME [facility] Last Admin: 08/30/21 20:51 Dose: 100 mg Documented by: FATMATA Labs CBC & Chem 7: 08/29/21 05:44 08/29/21 05:44 Assessment and Plan (1) Schizoaffective disorder, bipolar type: Status: Acute (2) COVID-19: Status: Acute Assessment and Plan: This is a 65 year old male with a PMH of PAF on Eliquis, SSS - s/p PPM, HTN, NIRMAL on CPAP, Bipolar/Schizoaffective COVID-19.? Transferred primarily for quarantine, mild cough not requiring supplemental oxygen Follow respiratory status closely will hold off on steroids as patient is not hypoxic paroxysmal atrial fibrillation Continue Eliquis and carvedilol Mood Continue clozapine, lithium, lorazepam, trazodone psych consult Hypothyroidism TSH from 08/21 wnl Continue levothyroxine NIRMAL cpap DVT prophylaxis with Darek Attending Dr. Dejesus Quality Stroke Does the patient have a stroke diagnosis?: No VTE Prior VTE?: No VTE Risk Level:: Medical - moderate - high VTE Device Contraindication: Treatment Not Indicated VTE Drug Contraindication: N/A - Med Ordered
[2021-08-31 15:16] VITALS: BP 140/78; PULSE 63; RESP 18; TEMP 37.1; O2SAT 94
[2021-08-31] MEDS: cloZAPine 25 MG TABLET PO (17:54)
[2021-08-31 19:19] VITALS: BP 122/64; PULSE 77; RESP 199; TEMP 37.2; O2SAT 98
[2021-08-31] MEDS: traZODone HCL 100 MG TABLET PO (21:51)
[2021-08-31] MEDS: cloZAPine 25 MG TABLET 150 MG PO (21:52)
[2021-09-01] VITALS (7 sets, daily range): BP systolic 106–184; BP diastolic 65–84; PULSE 61–77; RESP 15–20; TEMP 36.2–38.3; O2SAT 96–97
[2021-09-01] MEDS: 0.9 % Sodium Chloride Flush 3 ML SYRINGE IVFLUSH ×4 (01:37→20:16)
[2021-09-01] MEDS: Levothyroxine Sodium 175 MCG TABLET PO (05:11)
[2021-09-01] MEDS: Acetaminophen 325 MG TABLET 650 MG PO (05:11)
--- NOTE | 2021-09-01 10:20 | P.PNIM_ITS ---
Subjective Subjective Date of Service: 09/01/21 Review of Systems Follow up for radu Collins denies shortness of breath, no coughing noted this am Stated that he sees birds in his room Physical Exam Vital Signs: Vital Signs: Last Vital Signs Temp 98.3 F 09/01/21 08:00 Pulse 64 09/01/21 08:00 Resp 18 09/01/21 08:00 BP 146/82 H 09/01/21 08:00 Pulse Ox 96 09/01/21 08:00 BMI result Body Mass Index 34.7 Appearing in no acute distress lung sounds are clear to auscultation heart regular rate rhythm, clear S1, S2 positive bowel sounds, abdomen is soft, nontender neuro patient is alert, dementia Objective Data Active Medications Acetaminophen (Acetaminophen 325 Mg Tablet) 650 mg PO Q6H PRN PRN Reason: Pain, Mild (Pain Scale 1-3) Last Admin: 09/01/21 05:11 Dose: 650 mg Documented by: JOHN Apixaban (Apixaban 5 Mg Tablet) 5 mg PO BID [facility] Last Admin: 08/31/21 21:52 Dose: 5 mg Documented by: MILDRED Carvedilol (Carvedilol 12.5 Mg Tablet) 12.5 mg PO BID [facility]; Protocol Last Admin: 08/31/21 21:52 Dose: 12.5 mg Documented by: MILDRED Clozapine (Clozapine 25 Mg Tablet) 50 mg PO DAILY [facility] Last Admin: 08/31/21 09:03 Dose: 50 mg Documented by: NYASIA Clozapine (Clozapine 25 Mg Tablet) 150 mg PO BEDTIME [facility] Last Admin: 08/31/21 21:52 Dose: 150 mg Documented by: MILDRED Clozapine (Clozapine 25 Mg Tablet) 25 mg PO DAILY@1330 [facility] Last Admin: 08/31/21 17:54 Dose: 25 mg Documented by: MILDRED Levothyroxine Sodium (Levothyroxine Sodium 175 Mcg Tablet) 175 mcg PO DAILY@0600 [facility] Last Admin: 09/01/21 05:11 Dose: 175 mcg Documented by: JOHN [place] Carbonate ([place] Carbonate 300 Mg Tablet) 450 mg PO BID [facility] Last Admin: 08/31/21 21:51 Dose: 450 mg Documented by: MILDRED Ondansetron HCl (Ondansetron Hcl 4 Mg/2 Ml Vial) 4 mg IVPUSH Q8H PRN PRN Reason: Nausea and Vomiting Sodium Chloride (0.9 % Sodium Chloride Flush 3 Ml Syringe) 3 ml IVFLUSH QSHIFT [facility] Last Admin: 09/01/21 01:37 Dose: 3 ml Documented by: JOHN Trazodone HCl (Trazodone Hcl 50 Mg Tablet) 50 mg PO BEDTIME PRN PRN Reason: Insomnia Trazodone HCl (Trazodone Hcl 100 Mg Tablet) 100 mg PO BEDTIME [facility] Last Admin: 08/31/21 21:51 Dose: 100 mg Documented by: MILDRED Labs CBC & Chem 7: 08/29/21 05:44 08/29/21 05:44 Assessment and Plan (1) COVID-19: Status: Acute (2) Fever: Status: Acute Assessment and Plan: This is a 65 year old male with a PMH of PAF on Eliquis, SSS - s/p PPM, HTN, NIRMAL on CPAP, Bipolar/Schizoaffective Fever overnight cxr negative, ua pending COVID-19.? still covid positive as of 09/01/20 Transferred primarily for quarantine, mild cough not requiring supplemental oxygen Follow respiratory status closely will hold off on steroids as patient is not hypoxic paroxysmal atrial fibrillation Continue Eliquis and carvedilol Mood Continue clozapine, lithium, lorazepam, trazodone psych consult Hypothyroidism TSH from 08/21 wnl Continue levothyroxine NIRMAL cpap DISPO PT consult DVT prophylaxis with Darek Attending Dr. Dejesus Quality Stroke Does the patient have a stroke diagnosis?: No VTE Prior VTE?: No VTE Risk Level:: Medical - moderate - high VTE Device Contraindication: Treatment Not Indicated VTE Drug Contraindication: N/A - Med Ordered
[2021-09-01] MEDS: Apixaban 5 MG TABLET PO ×2 (10:27→20:16)
[2021-09-01] MEDS: carvediloL 12.5 MG TABLET PO ×2 (10:27→20:16)
[2021-09-01] MEDS: Lithium Carbonate 300 MG TABLET 450 MG PO ×2 (10:27→20:15)
[2021-09-01] MEDS: cloZAPine 25 MG TABLET 50 MG PO (10:27)
[2021-09-01 10:56] LABS: COVID-19 Test Positive (Negative)
[2021-09-01 13:58] LABS: Appearance Urine CLEAR; Color Urine YELLOW; Glucose Urine UA NEG (NEG); Leukocyte Esterase Urine NEG (NEG); Nitrite Urine NEG (NEG); Urine Blood NEG (NEG); Urine Ketones NEG (NEG); Urine Protein NEG (NEG-TRACE)
[2021-09-01] MEDS: cloZAPine 25 MG TABLET PO (14:33)
[2021-09-01] MEDS: cloZAPine 25 MG TABLET 150 MG PO (20:14)
[2021-09-01] MEDS: traZODone HCL 100 MG TABLET PO (20:16)
[2021-09-02 03:30] VITALS: BP 150/70; PULSE 95; RESP 18; TEMP 36.4; O2SAT 95
[2021-09-02] MEDS: Levothyroxine Sodium 175 MCG TABLET PO (05:47)
[2021-09-02 08:00] VITALS: BP 164/77; PULSE 64; RESP 18; TEMP 36.7; O2SAT 95
[2021-09-02] MEDS: Lithium Carbonate 300 MG TABLET 450 MG PO ×2 (08:29→21:28)
[2021-09-02] MEDS: Apixaban 5 MG TABLET PO ×2 (08:29→21:28)
[2021-09-02] MEDS: cloZAPine 25 MG TABLET 50 MG PO (08:31)
[2021-09-02] MEDS: carvediloL 12.5 MG TABLET PO ×2 (08:31→21:28)
[2021-09-02] MEDS: 0.9 % Sodium Chloride Flush 3 ML SYRINGE IVFLUSH ×3 (08:31→21:28)
[2021-09-02 09:25] LABS: Hematocrit 38.6 % (42.0-52.0); Hemoglobin 12.8 g/dl (14.0-18.0); Mean Corpuscular HGB Conc 33.2 g/dl (31.0-36.0); Mean Corpuscular Hemoglobin 28.9 pg (27.0-33.0); Mean Corpuscular Volume 87.1 fL (80.0-98.0); Mean Platelet Volume 10.2 fL (9.4-12.4); Platelet Count 412 X10*3/uL (160-400); Red Blood Count 4.43 X10*6/uL (4.60-5.80); Red Cell Distribution Width 13.1 % (11.0-16.0); White Blood Count 9.4 X10*3/uL (4.8-10.8)
[2021-09-02 09:53] LABS: Anion Gap 11 (12-20); Blood Urea Nitrogen 13 mg/dL (9-16); Calcium 9.7 mg/dL (8.4-10.2); Carbon Dioxide 25 mmol/L (22-29); Chloride 107 mmol/L (96-108); Creatinine Clr Calc Pharmacy 84.5; Estimated Glomerular Filt Rate > 60; Glucose Random 115 mg/dL (60-115); Lactate Dehydrogenase 163 U/L (118-273); Potassium 4.3 mmol/L (3.3-5.1); Sodium 139 mmol/L (135-145)
[2021-09-02 09:58] LABS: Ferritin 422 ng/mL (20-250)
[2021-09-02 12:00] VITALS: BP 158/72; PULSE 66; RESP 18; TEMP 36.3; O2SAT 97
--- NOTE | 2021-09-02 12:26 | P.PNIM_ITS ---
Subjective Subjective Date of Service: 09/02/21 Review of Systems Follow up for radu Collins denies shortness of breath, no coughing noted this am Stated that he sees birds in his room Physical Exam Vital Signs: Vital Signs: Last Vital Signs Temp 97.4 F 09/02/21 12:00 Pulse 66 09/02/21 12:00 Resp 18 09/02/21 12:00 BP 158/72 H 09/02/21 12:00 Pulse Ox 97 09/02/21 12:00 BMI result Body Mass Index 34.7 Appearing in no acute distress lung sounds are clear to auscultation heart regular rate rhythm, clear S1, S2 positive bowel sounds, abdomen is soft, nontender neuro patient is alert, confused Objective Data Active Medications Acetaminophen (Acetaminophen 325 Mg Tablet) 650 mg PO Q6H PRN PRN Reason: Pain, Mild (Pain Scale 1-3) Last Admin: 09/01/21 05:11 Dose: 650 mg Documented by: JOHN Apixaban (Apixaban 5 Mg Tablet) 5 mg PO BID [facility] Last Admin: 09/02/21 08:29 Dose: 5 mg Documented by: CAMELIA Carvedilol (Carvedilol 12.5 Mg Tablet) 12.5 mg PO BID [facility]; Protocol Last Admin: 09/02/21 08:31 Dose: 12.5 mg Documented by: CAMELIA Clozapine (Clozapine 25 Mg Tablet) 50 mg PO DAILY [facility] Last Admin: 09/02/21 08:31 Dose: 50 mg Documented by: CAMELIA Clozapine (Clozapine 25 Mg Tablet) 150 mg PO BEDTIME [facility] Last Admin: 09/01/21 20:14 Dose: 150 mg Documented by: NAT Clozapine (Clozapine 25 Mg Tablet) 25 mg PO DAILY@1330 [facility] Last Admin: 09/01/21 14:33 Dose: 25 mg Documented by: SORAIDA Levothyroxine Sodium (Levothyroxine Sodium 175 Mcg Tablet) 175 mcg PO DAILY@0600 [facility] Last Admin: 09/02/21 05:47 Dose: 175 mcg Documented by: MARII [place] Carbonate ([place] Carbonate 300 Mg Tablet) 450 mg PO BID [facility] Last Admin: 09/02/21 08:29 Dose: 450 mg Documented by: CAMELIA Ondansetron HCl (Ondansetron Hcl 4 Mg/2 Ml Vial) 4 mg IVPUSH Q8H PRN PRN Reason: Nausea and Vomiting Sodium Chloride (0.9 % Sodium Chloride Flush 3 Ml Syringe) 3 ml IVFLUSH QSHIFT [facility] Last Admin: 09/02/21 08:31 Dose: 3 ml Documented by: CAMELIA Trazodone HCl (Trazodone Hcl 50 Mg Tablet) 50 mg PO BEDTIME PRN PRN Reason: Insomnia Trazodone HCl (Trazodone Hcl 100 Mg Tablet) 100 mg PO BEDTIME [facility] Last Admin: 09/01/21 20:16 Dose: 100 mg Documented by: NAT Labs CBC & Chem 7: 09/02/21 09:07 09/02/21 09:07 Labs: Laboratory Results - last 24 hr 09/01/21 09/02/21 09/02/21 13:27 09:07 09:07 MCV 87.1 MCH 28.9 MCHC 33.2 RDW 13.1 Plt Count 412 H D MPV 10.2 Absolute Nucleated RBC 0.000 Nucleated RBC % (auto) 0.0 Anion Gap 11 L Estim Creat Clear Calc 84.5 Estimated GFR > 60 Random Glucose 115 Calcium 9.7 D Ferritin 422 H Lactate Dehydrogenase 163 Urine Color YELLOW Urine Appearance CLEAR Urine pH 6.0 Ur Specific [place] 1.010 Urine Protein NEG Urine Glucose (UA) NEG Urine Ketones NEG Urine Blood NEG Urine Nitrite NEG Ur Leukocyte Esterase NEG Assessment and Plan (1) COVID-19: Status: Acute (2) Schizoaffective disorder, bipolar type: Status: Acute (3) PAF (paroxysmal atrial fibrillation): Status: Acute Assessment and Plan: This is a 65 year old male with a PMH of PAF on Eliquis, SSS - s/p PPM, HTN, NIRMAL on CPAP, Bipolar/Schizoaffective COVID-19.? Transferred primarily for quarantine not requiring supplemental oxygen Follow respiratory status closely will hold off on steroids as patient is not hypoxic paroxysmal atrial fibrillation Continue Eliquis and carvedilol Mental health.? Continue clozapine, lithium, lorazepam, trazodone Psychiatric team to follow dialy Hypothyroidism Continue levothyroxine NIRMAL cpap DISPO Can tx back to [facility] after day 10 if still needed, otherwise he can be dc back to [facility] DVT prophylaxis with Darek Attending Dr. Mlapah Quality Stroke Does the patient have a stroke diagnosis?: No VTE Prior VTE?: No VTE Risk Level:: Medical - moderate - high VTE Device Contraindication: Treatment Not Indicated VTE Drug Contraindication: N/A - Med Ordered
[2021-09-02] MEDS: cloZAPine 25 MG TABLET PO (12:32)
[2021-09-02 16:00] VITALS: BP 121/71; PULSE 67; RESP 18; TEMP 36.4; O2SAT 97
[2021-09-02 17:36] LABS: Clozapine (Clozaril) 482 mcg/L; Norclozapine 203 mcg/L (25-400)
[2021-09-02 20:00] VITALS: BP 150/84; PULSE 72; RESP 20; TEMP 37.1; O2SAT 97
[2021-09-02] MEDS: cloZAPine 25 MG TABLET 150 MG PO (21:28)
[2021-09-02] MEDS: traZODone HCL 100 MG TABLET PO (21:28)
[2021-09-02 21:31] VITALS: BP 141/84; PULSE 70
[2021-09-03] VITALS: BP 154/74; PULSE 74; RESP 20; TEMP 36.3; O2SAT 97
[2021-09-03 04:00] VITALS: BP 155/68; PULSE 70; RESP 18; TEMP 36.7; O2SAT 97
[2021-09-03] MEDS: Levothyroxine Sodium 175 MCG TABLET PO ×2 (05:19→05:21)
[2021-09-03 07:04] VITALS: BP 154/90; PULSE 74; RESP 18; TEMP 36.5; O2SAT 96
[2021-09-03] MEDS: carvediloL 12.5 MG TABLET PO ×2 (09:55→20:18)
[2021-09-03] MEDS: Apixaban 5 MG TABLET PO ×2 (09:55→20:18)
[2021-09-03] MEDS: cloZAPine 25 MG TABLET 50 MG PO (09:55)
[2021-09-03] MEDS: Lithium Carbonate 300 MG TABLET 450 MG PO ×2 (09:55→20:19)
[2021-09-03] MEDS: 0.9 % Sodium Chloride Flush 3 ML SYRINGE IVFLUSH ×3 (09:56→20:27)
--- NOTE | 2021-09-03 10:08 | PM.EVENT ---
Event Note Date of Service: 09/03/21 Event Note: I met with patient this morning as a follow-up psychiatric visit. He continues with delusional thought and visual hallucinations, and appears to be experiencing more than when I met with him on Wednesday09/01/20. He did report that he was watching the of Dominic Neeraj while I was meeting with him, as it was happening in the room. He also reports birds flying up to the window, and that his father got a shock gun to kill them. I was unable to complete a MOCA, as he was to disoriented at this time. He did state his name, and that he was in [place]. When asked the date, he stated ?it's November ?. He was pleasant and cooperative, no behavioral concerns, no signs of anxiety or agitation noted. I spoke with patient's RN, and was told that sister had called to report that when patient has decompensated in the past, the only treatment that really worked well for him was ECT. He has had several increases of Clozaril dosing while here. RECOMMENDATIONS: When patient medically cleared from COVID, which is expected tomorrow, he should be transferred back to geriatric psych unit. I have shared this with Dr. Marquis on [facility], and covering provider Dr. Mando Davis, via secure messaging system. Thank you.
[2021-09-03 11:16] VITALS: BP 109/75; PULSE 62; RESP 18; TEMP 36.2; O2SAT 98
[2021-09-03] MEDS: cloZAPine 25 MG TABLET PO (12:26)
[2021-09-03 13:57] LABS: COVID-19 Test Positive (Negative)
--- NOTE | 2021-09-03 14:32 | MHC.CM.PN ---
Male 65 DX Covid+ A Covid test was obtained today. The result is +COVID. DP is [facility] when medically clear. He continues with psych following.
[2021-09-03 16:00] VITALS: BP 143/73; PULSE 63; RESP 15; TEMP 36.6; O2SAT 97
--- NOTE | 2021-09-03 16:58 | HO.PM.IMPN ---
Subjective Subjective Date of Service: 09/03/21 Interval History: No acute issues overnight Review of Systems Confuse unable to obtain Physical Exam Vital Signs: Vital Signs: Last Vital Signs Temp 98 F 09/03/21 16:00 Pulse 63 09/03/21 16:00 Resp 15 09/03/21 16:00 BP 143/73 H 09/03/21 16:00 Pulse Ox 97 09/03/21 16:00 BMI result Body Mass Index 34.7 Const: Other: No S4; positive S1-S2; no S3 murmurs rubs gallops Resp: Other: Clear to auscultation bilaterally no rales rhonchi or wheezes Cardio: Other: No S4; positive S1-S2; no S3 murmurs rubs or gallops GI: Other: Soft nontender nondistended normoactive bowel sounds. No rebound or guarding Extrem: Other: No edema bilateral Objective Data Active Medications Acetaminophen (Acetaminophen 325 Mg Tablet) 650 mg PO Q6H PRN PRN Reason: Pain, Mild (Pain Scale 1-3) Last Admin: 09/01/21 05:11 Dose: 650 mg Documented by: JOHN Apixaban (Apixaban 5 Mg Tablet) 5 mg PO BID [facility] Last Admin: 09/03/21 09:55 Dose: 5 mg Documented by: LEA Carvedilol (Carvedilol 12.5 Mg Tablet) 12.5 mg PO BID [facility]; Protocol Last Admin: 09/03/21 09:55 Dose: 12.5 mg Documented by: LEA Clozapine (Clozapine 25 Mg Tablet) 50 mg PO DAILY [facility] Last Admin: 09/03/21 09:55 Dose: 50 mg Documented by: LEA Clozapine (Clozapine 25 Mg Tablet) 150 mg PO BEDTIME [facility] Last Admin: 09/02/21 21:28 Dose: 150 mg Documented by: DAVID Clozapine (Clozapine 25 Mg Tablet) 25 mg PO DAILY@1330 [facility] Last Admin: 09/03/21 12:26 Dose: 25 mg Documented by: LEA Levothyroxine Sodium (Levothyroxine Sodium 175 Mcg Tablet) 175 mcg PO DAILY@0600 [facility] Last Admin: 09/03/21 05:21 Dose: 175 mcg Documented by: DAVID [place] Carbonate ([place] Carbonate 300 Mg Tablet) 450 mg PO BID [facility] Last Admin: 09/03/21 09:55 Dose: 450 mg Documented by: LEA Ondansetron HCl (Ondansetron Hcl 4 Mg/2 Ml Vial) 4 mg IVPUSH Q8H PRN PRN Reason: Nausea and Vomiting Sodium Chloride (0.9 % Sodium Chloride Flush 3 Ml Syringe) 3 ml IVFLUSH QSHIFT [facility] Last Admin: 09/03/21 09:56 Dose: 3 ml Documented by: LEA Trazodone HCl (Trazodone Hcl 50 Mg Tablet) 50 mg PO BEDTIME PRN PRN Reason: Insomnia Trazodone HCl (Trazodone Hcl 100 Mg Tablet) 100 mg PO BEDTIME [facility] Last Admin: 09/02/21 21:28 Dose: 100 mg Documented by: DAVID Labs CBC & Chem 7: 09/02/21 09:07 09/02/21 09:07 Labs: Laboratory Results - last 24 hr 08/28/21 09/03/21 08:01 13:23 Clozapine 482 Norclozapine 203 COVID-19 ([facility]) Positive A COVID-19 Clin Com See Note Assessment and Plan (1) COVID-19: Status: Acute (2) PAF (paroxysmal atrial fibrillation): Status: Acute (3) Schizoaffective disorder, bipolar type: Status: Acute Assessment and Plan: 65-year-old man transferred from [facility] to medical floor due to COVID-19. 1.COVID-19. Remains asymptomatic. Quarantine complete tomorrow (10 days) .... Afebrile times 48 hours in the absence of antipyretic. 2.Paroxysmal atrial fibrillation Continue Eliquis and carvedilol 3. Bipolar I disorder Continue clozapine, lithium, lorazepam, trazodone; Return to [facility] in a.m. 4.Hypothyroidism Continue levothyroxine DVT prophylaxis with Eliquis Quality Stroke Does the patient have a stroke diagnosis?: No VTE Prior VTE?: No VTE Risk Level:: Medical - moderate - high VTE Device Contraindication: Treatment Not Indicated VTE Drug Contraindication: N/A - Med Ordered
[2021-09-03 19:11] VITALS: BP 145/87; PULSE 69; RESP 17; TEMP 36.4; O2SAT 98
[2021-09-03] MEDS: cloZAPine 25 MG TABLET 150 MG PO (20:18)
[2021-09-03] MEDS: traZODone HCL 100 MG TABLET PO (20:19)
[2021-09-04] VITALS: BP 128/63; PULSE 66; RESP 18; TEMP 36.8; O2SAT 100
[2021-09-04 04:00] VITALS: BP 148/77; PULSE 64; RESP 20; TEMP 36.8; O2SAT 96
--- NOTE | 2021-09-04 04:24 | PC.NURSE ---
pt became slightly agitated around 2229. stated he is being held hostage and needs to get a whopper pt easily redirectable, ambulated from chair to bathroom. Once out of the bathroom he wanted to sit in the bed. After that he was no longer agitated
[2021-09-04 07:52] VITALS: BP 168/78; PULSE 68; RESP 16; TEMP 36.8; O2SAT 98
[2021-09-04 08:17] LABS: Neut%MD 64.4 %; Neutrophils Absolute Auto 5.6 x10*3/uL (2.0-8.3); WBCANC 8.8 X10*3/uL
[2021-09-04] MEDS: 0.9 % Sodium Chloride Flush 3 ML SYRINGE IVFLUSH (09:24)
[2021-09-04] MEDS: cloZAPine 25 MG TABLET 50 MG PO (09:24)
[2021-09-04] MEDS: carvediloL 12.5 MG TABLET PO (09:24)
[2021-09-04] MEDS: Apixaban 5 MG TABLET PO (09:24)
[2021-09-04] MEDS: Lithium Carbonate 300 MG TABLET 450 MG PO (09:24)
[2021-09-04 11:51] VITALS: BP 159/78; PULSE 72; RESP 20; TEMP 36.7; O2SAT 97
--- NOTE | 2021-09-04 12:22 | P.DS_ITS ---
DS: Providers Provider Date of Service: 09/04/21 Date of admission: 08/25/21 11:46 Primary care physician: Unknown Physician Consults: 08/25/21 14:49 Consult to Psychiatry Routine Consulting Provider: Psych Covering Reason for consultation: covid 19, patient known to the service Has provider been notified: No 08/28/21 12:43 Consult to Infectious Diseases Routine Consulting Provider: Jo Carrillo Reason for consultation: covid + when can we transfer out of covid unit 08/31/21 15:09 Consult to Psychiatry Routine Consulting Provider: Psych Covering Reason for consultation: psych patient boarding on medical floor for isolation Has provider been notified: No DS: Diagnosis Discharge Diagnosis (1) COVID-19: Status: Acute (2) PAF (paroxysmal atrial fibrillation): Status: Acute (3) Schizoaffective disorder, bipolar type: Status: Acute DS: Summary Hospital Course Hospital Course: 65-year-old gentleman transferred from [facility] on 08/25/2021 with COVID positive status. Was admitted to [facility] for medication management and developed COVID symptoms. He was transferred to the general medical floor for COVID quarantine. His stay was unremarkable at this point time he has completed his quarantine is medically stable for transfer back to [facility] Time Spent with Patient Time attestation: Total time spent providing and/or coordinating discharge services: Discharge coordination time: Greater than 30 minutes Quality: Stroke Does the patient have a stroke diagnosis?: No Physical Exam Vital Signs: Vital Signs: Last Vital Signs Temp 98.1 F 09/04/21 11:51 Pulse 72 09/04/21 11:51 Resp 20 09/04/21 11:51 BP 159/78 H 09/04/21 11:51 Pulse Ox 97 09/04/21 11:51 BMI result Body Mass Index 34.7 Const: General: comfortable, no acute distress, alert and awake Nutritional Appearance: well nourished HENMT: Head: Yes normocephalic and Yes atraumatic Eyes: Sclerae: sclerae normal Resp: Effort & Inspection: normal respiratory effort and no respiratory distress Cardio: Rate: regular rate Rhythm: regular rhythm GI: Palpation (GI): Soft to palpation and nontender Neuro: Cranial nerves: Yes CN's II-XII intact bilaterally and Yes Bilaterally intact EOM present DS: Data Data Completed and Pending Labs on day of discharge: Laboratory Results - last 24 hr 09/03/21 09/04/21 13:23 08:01 Absolute Neuts (auto) 5.6 COVID-19 (HUNTER) Positive A COVID-19 Clin Com See Note Discharge Plan Discharge Disposition: Xfer Psychiatric Hosp Referrals: Physician,Unknown J [Primary Care Provider] - 1 Week Discharge Medications: Continued levothyroxine 175 mcg tablet 1 tab PO DAILY RF: 0 carvedilol 12.5 mg tablet 1 tab PO BID RF: 0 trazodone 50 mg tablet 50 mg PO BEDTIME PRN (Reason: Insomnia) RF: 0 clozapine 100 mg tablet 150 mg PO BEDTIME RF: 0 trazodone 100 mg tablet 1 tab PO BEDTIME RF: 0 lorazepam 1 mg Tablet 1 mg PO Q6H PRN (Reason: Anxiety) RF: 0 lithium carbonate 300 mg tablet 450 mg PO BID RF: 0 clozapine 50 mg tablet 50 mg PO DAILY RF: 0 Eliquis 5 mg tablet 1 tab PO BID RF: 0 Discharge Orders: Discharge Order (Routine); Ordered 09/04/21 Ordered By: Mando Davis Forms: Patient Portal Discharge page
--- NOTE | 2021-09-04 14:11 | MHC.CM.PN ---
Addendum entered by Isa Laird 09/04/21 14:14: Pts son, Minesh [place] has been notified of the transfer. He is the HCP for the patient. Original Note: Patient has been transfered to [facility] via .
== END 2021-09-04 13:01 | DRG 179 ==
PROVIDERS: Nurse Practitioner Acute Care; Nurse Practitioner Psychiatric/Mental Health; Physician Assistant Medical; Admitting Provider Hospitalist; Visit Provider Hospitalist
DX: U07.1 COVID-19 (principal); I48.0 Paroxysmal atrial fibrillation; G47.33 Obstructive sleep apnea (adult) (pediatric); F25.0 Schizoaffective disorder, bipolar type; E03.9 Hypothyroidism, unspecified; Z87.74 Personal history of (corrected) congenital malformations of heart and circulatory system; Z88.2 Allergy status to sulfonamides; Z79.01 Long term (current) use of anticoagulants; Z79.890 Hormone replacement therapy; Z79.899 Other long term (current) drug therapy
CPT/HCPCS: 36415; 71045; 80048; 80159; 80178; 81003; 82728; 83615; 84145; 85025; 85027; 85048; 87635; 93005; 97161; 99219

== ENCOUNTER 2021-09-04 13:41 | Inpatient (IN) | payer MEDICARE, MEDICAID, SELFPAY ==
--- NOTE | ~2021-09-04 | CT_ITS ---
EXAMINATION: CT HEAD WITHOUT CONTRAST CLINICAL INFORMATION: Recent fall. COMPARISON: CT head dated from 09/10/2021. TECHNIQUE: Contiguous axial imaging was performed from the skull base to vertex without intravenous administration of contrast. This CT examination was performed using dose optimization techniques as appropriate, variously including the following: *Automated exposure control *Adjustment of mA and/or kV according to patient size (this includes techniques or standardized protocols for targeted exams where dose is matched to indication/reason for exam; i.e. extremities or head) *Use of iterative reconstruction technique DLP: 849 mGy-cm FINDINGS: There is no evidence of acute intracranial hemorrhage or edematous territorial infarction. A few foci of hypoattenuation in the periventricular and deep white matter are consistent with mild microangiopathy. Tee-white matter differentiation is preserved. Proportional prominence of the ventricles and sulcal spaces. No evidence for obstructive hydrocephalus. No abnormal mass effect or midline shift. No extra-axial fluid collections. No acute soft tissue or osseous abnormalities. The mastoid air cells and paranasal sinuses are clear. CT/CT head/brain wo con IMPRESSION: 1. No evidence of acute intracranial hemorrhage or edematous territorial infarction. 2. Mild chronic microangiopathy.
--- NOTE | ~2021-09-04 | CT_ITS ---
EXAMINATION: CT HEAD WITHOUT CONTRAST CLINICAL INFORMATION: Worsening psychosis. Rule out vascular dementia. COMPARISON: None TECHNIQUE: Contiguous axial imaging was performed from the skull base to vertex without intravenous administration of contrast. This CT examination was performed using dose optimization techniques as appropriate, variously including the following: *Automated exposure control *Adjustment of mA and/or kV according to patient size (this includes techniques or standardized protocols for targeted exams where dose is matched to indication/reason for exam; i.e. extremities or head) *Use of iterative reconstruction technique DLP: 951 mGy-cm FINDINGS: There is no evidence of acute intracranial hemorrhage or territorial infarction. No abnormal mass effect or midline shift is seen. Tee to white matter differentiation is well preserved. No extra-axial fluid collections are identified. The ventricles are normal in size. There is no abnormal attenuation within the brain parenchyma. The osseous structures and soft tissues are normal. There is mild membranous soft tissue thickening seen in both maxillary sinuses. The mastoid air cells and visualized portions of the paranasal sinuses are otherwise clear. CT/CT head/brain wo con IMPRESSION: No acute intracranial findings. Mild premature changes maxillary sinuses.
[2021-09-04 13:48] VITALS: BMI 34.9
[2021-09-04 15:16] VITALS: BP 153/83; PULSE 74; RESP 16; TEMP 37.1; O2SAT 95
--- NOTE | 2021-09-04 16:10 | P.HPPS_ITS ---
HPI Date of Service: 09/04/21 Chief Complaint: Psychosis Sources of Information: patient interviewed and chart reviewed Additional Sources of Information: follow-up notes of psychiatric customer relations consultant HPI Subjective Notes: Conditional Voluntary ( sign by healthcare proxy) Healthcare Proxy: Yes Narrative: the patient is a 65-year-old male, single, chronically mentally ill, resident of [facility], who was initially admitted into this facility on August 20 for exacerbation of psychotic symptoms elicited by paranoia, disorganized behavior, delusions of hyper yazidi who was initially admitted into this facility but later transferred to the medical floor due to the recent diagnosis of COVID-19 with symptoms such as fever, respiratory distressed and confusion. The patient carries a diagnosis of a schizoaffective disorder bipolar type and he had his 1st psychotic episode when he was 15. He has been chronically institu tionalized and admitted several times into the hospital. The patient usually is on a mixed of Clozaril and lithium and while he was in the emergency room of [facility] in July it was slightly titrated. When the patient was transferred to Medicine, she is lithium and Clozaril was kept and he has been followed by the psychiatric service. A slow titration of Clozaril was started and so far, he did not have over-sedation or any other side effects of Clozaril. On interview, the patient was pleasantly confused, paranoid and disorganized but easily redirectable. He denied auditory hallucinations but he was responding to internal stimuli. Past Psychiatric History: Inpatient: per [facility] documentation, multiple inpt admission since age 15 when he had first psychotic episode. Most recently at [facility] 2005; [facility] 2019. OP: [facility]any [facility] Past medication trial: lithium, clozaril. Medical Evaluation Reviewed: Yes [facility] Medical History History of ETT Hypertension Hypothyroidism Obstructive sleep apnea PAF (paroxysmal atrial fibrillation) Schizoaffective disorder, bipolar type Surgical History H/O arthroscopic knee surgery H/O congenital atrial septal defect (ASD) repair Hx laparoscopic cholecystectomy Family History: Unknown Social History: chronically mentally ill, with several admissions into the hospital for psychotic episodes and probably long-term hospitalizations. At this moment, the patient resides at at [facility] facility. Substance History: Denies Trauma History: denies Diagnostics Vital Signs (24Hr): Vital Signs - 24 hr 09/04/21 15:16 Temperature 98.7 F Pulse Rate 74 Respiratory Rate 16 Blood Pressure 153/83 H Pulse Oximetry 95 BMI result Body Mass Index 34.9 Meds/Allergies Meds Home Medications Acetaminophen (Acetaminophen 325 Mg Tablet) 650 mg PO Q6H PRN PRN Reason: Headache/Pain Mild Scale (1-3) Acetaminophen (Acetaminophen 325 Mg Tablet) 650 mg PO Q6H PRN PRN Reason: Pain, Mild (Pain Scale 1-3) Al Hydroxide/Mg Hydroxide (Magnesium Hydrox/Alum Hydrox 30 Ml Oral.Susp) 30 ml PO Q6H PRN PRN Reason: Heartburn/Nausea Apixaban (Apixaban 5 Mg Tablet) 5 mg PO BID [facility] Carvedilol (Carvedilol 12.5 Mg Tablet) 12.5 mg PO BID [facility]; Protocol Clozapine (Clozapine 25 Mg Tablet) 50 mg PO DAILY [facility] Clozapine (Clozapine 100 Mg Tablet) 150 mg PO BEDTIME [facility] Clozapine (Clozapine 25 Mg Tablet) 50 mg PO DAILY@1330 [facility] Hydroxyzine HCl (Hydroxyzine Hcl 25 Mg Tablet) 25 mg PO BEDTIME PRN PRN Reason: Anxiety Levothyroxine Sodium (Levothyroxine Sodium 175 Mcg Tablet) 175 mcg PO DAILY@0600 [facility] Benjamin Perez Carbonate (Benjamin Perez Carbonate 300 Mg Tablet) 450 mg PO BID [facility] Magnesium Hydroxide (Milk Of Magnesia 30 Ml Oral.Susp) 30 ml PO DAILY PRN PRN Reason: Constipation Trazodone HCl (Trazodone Hcl 50 Mg Tablet) 50 mg PO BEDTIME PRN PRN Reason: Insomnia Trazodone HCl (Trazodone Hcl 100 Mg Tablet) 100 mg PO BEDTIME [facility] Trazodone HCl (Trazodone Hcl 50 Mg Tablet) 50 mg PO BEDTIME PRN PRN Reason: Insomnia Allergies Allergies Allergy/AdvReac Type Severity Reaction Status Date / Time house dust Allergy Intermediate watery eyes Verified 08/20/21 11:33 adhesive Allergy Unknown Unknown Verified 08/20/21 12:09 fenofibrate Allergy Unknown Unknown Verified 08/20/21 12:05 Sulfa (Sulfonamide Allergy Unknown unknown Verified 08/20/21 11:33 Antibiotics) tomato Allergy Unknown Unknown Verified 08/20/21 12:07 Yeast Allergy Unknown Unknown Verified 08/20/21 12:08 zolpidem [From Ambien] Allergy Unknown Unknown Verified 08/20/21 12:06 lactose AdvReac Unknown Unknown Verified 08/20/21 12:07 Mental Status Exam Mental Status Exam Patient Appearance: Disheveled and Unkempt Patient Orientation: Person Level of Consciousness: Disoriented, Restless and Follows Commands Patient Behavior: Guarded, Cooperative, Passive and Confused Mood Description: Elated Affect Description: Constricted Patient Cognition Impaired: Yes Ability to Follow Directions: Fair Speech Pattern: Spontaneous Speech, Rambling and Soft-Spoken Hallucinations: None Delusions: Paranoid Ideation and Grandiose Thought Process: Illogical, Distracted and Slowed Thinking Thought Content: positive for Perseveration, positive for Poverty of Content and positive for Loose Associations Judgement: Poor Assessment & Plan Assessment & Plan (1) Schizoaffective disorder, bipolar type: Status: Acute Code(s): F25.0 - Schizoaffective disorder, bipolar type (2) COVID-19: Status: Acute Code(s): U07.1 - COVID-19 (3) PAF (paroxysmal atrial fibrillation): Status: Acute Code(s): I48.0 - Paroxysmal atrial fibrillation Assessment and Plan: the patient is a 65-year-old male with a long history of schizoaffective disorder bipolar type who was initially admitted for exacerbation of psychosis and not responding to Clozaril and lithium. He was initially admitted into this unit on August 20 but later he was diagnosed of COVID and transfer to the medical floor. After being medically cleared he was transferred into this unit for continuation of treatment. Plan 1. Continue lithium as prescribed. 2. Increased closer in up to 50 mg p.o. b.i.d. and 150 mg p.o. q.h.s.. 3. Continue other medications. 4. CBC with ANC in 3 days. 5. Gather collateral information. Reason for continued inpatient stay Substantial Risk for: inability to function, rapid decompensation and med/psych decompensation
--- NOTE | 2021-09-04 16:20 | PC.ADMIT ---
Pt. readmitted to unit 1330 via wheelchair from [facility], where he had completed 10 day Covid isolation. He declined BIPAP the entire time he was on isolation. Doctor to DrSia report took place between Dr. Marquis and Dr. Davis. Nurse to nurse report was between this nurse and [facility] nurse Valencia Moody. He is here on CV by HCP, which is his son, Minesh Kumari Jr., who has been informed of his transfer back to unit and provided history on pt. and helped in development of Safety tool. Pt. has Schizoaffective disorder, Bipolar type. Son reports he has long history of periodic episodes of decompensation, which used to occur after many years, but have since been more frequent and sx. have been more refractory, resulting in his skilled nursing admission to [facility] when he could no longer be managed living with his son. He presents as pleasantly hyperverbal and self dialogues. His speech is clear and non pressured. He is oriented to self and knows he's at [facility]. He is disoriented to time and situation. He is not a reliable historian due to his delusions. He ambulated independently without assistive devices. He will need cueing to attend to his ADLs, as he is highly distractible due to delusions. Full skin assmt. reveals flaky facial skin and areas of contact dermatitis due to adhesive on EKG leads on bilateral shins.
--- NOTE | 2021-09-04 16:51 | PHA.MEDREC ---
Pharmacy Consult ? Medication Reconciliation Pharmacy has completed the medication reconciliation.
[2021-09-04 19:52] VITALS: BP 161/88; PULSE 85; RESP 18; TEMP 37.7; O2SAT 96
[2021-09-04] MEDS: Apixaban 5 MG TABLET PO (20:28)
[2021-09-04] MEDS: traZODone HCL 100 MG TABLET PO (20:29)
[2021-09-04] MEDS: carvediloL 12.5 MG TABLET PO (20:29)
[2021-09-04] MEDS: cloZAPine 100 MG TABLET 150 MG PO (20:29)
[2021-09-04] MEDS: Lithium Carbonate 300 MG TABLET 450 MG PO (20:30)
[2021-09-05] MEDS: Levothyroxine Sodium 175 MCG TABLET PO (05:04)
[2021-09-05 07:30] VITALS: BP 96/61; PULSE 85; RESP 16; TEMP 36.6; O2SAT 97
[2021-09-05] MEDS: Apixaban 5 MG TABLET PO ×2 (08:17→20:03)
[2021-09-05] MEDS: cloZAPine 25 MG TABLET 50 MG PO ×2 (08:17→12:36)
[2021-09-05] MEDS: Lithium Carbonate 300 MG TABLET 450 MG PO ×2 (08:17→20:06)
[2021-09-05] MEDS: carvediloL 12.5 MG TABLET PO ×2 (08:18→20:03)
--- NOTE | 2021-09-05 11:33 | MHC.CLN ---
NUTRITION DIET=2 GRAM SODIUM DUE TO DX HTN.
--- NOTE | 2021-09-05 15:16 | HO.PSYCHPN ---
Subjective Subjective Date of Service: 09/05/21 Reason For Visit: Psychosis Subjective Notes: Conditional Voluntary Interim History: The nursing staff reports that the patient has been cooperative, he refused to use the CPAP machine but he has been very hyperverbal and animated, very pleasant. On interview, the patient was pleasantly confused and cheerful. We had a meeting over the phone with his son and the social service worker and the son reported that at baseline he is pleasant and cooperative but confused at times. We discussed the use of Clozaril as a mood stabilizer/ antipsychotic. Her son stated that last year he did very well with ECT at [facility]. At this moment, we are not considering ECT since he is responding fairly well to Clozaril. Medication Compliance: Yes Mental Status Exam Mental Status Exam Patient Appearance: Well Grooomed Patient Orientation: Person Level of Consciousness: Awake Patient Behavior: Cooperative Mood Description: Appropriate Affect Description: Euphoric Patient Cognition Impaired: Yes Ability to Follow Directions: Good Speech Pattern: Clear Delusions: Not Present Thought Process: Illogical Thought Content: positive for Tangential Judgement: Fair Diagnostics Vital Signs (24Hr): Vital Signs - 24 hr 09/04/21 19:52 09/05/21 07:30 Temperature 99.9 F 97.8 F Pulse Rate 85 85 Respiratory Rate 18 16 Blood Pressure 161/88 H 96/61 Pulse Oximetry 96 97 BMI result Body Mass Index 34.9 Medications Medications Current Medications Acetaminophen (Acetaminophen 325 Mg Tablet) 650 mg PO Q6H PRN PRN Reason: Headache/Pain Mild Scale (1-3) Al Hydroxide/Mg Hydroxide (Magnesium Hydrox/Alum Hydrox 30 Ml Oral.Susp) 30 ml PO Q6H PRN PRN Reason: Heartburn/Nausea Apixaban (Apixaban 5 Mg Tablet) 5 mg PO BID [facility] Last Admin: 09/05/21 08:17 Dose: 5 mg Documented by: Carvedilol (Carvedilol 12.5 Mg Tablet) 12.5 mg PO BID [facility]; Protocol Last Admin: 09/05/21 08:18 Dose: 12.5 mg Documented by: Clozapine (Clozapine 25 Mg Tablet) 50 mg PO DAILY [facility] Last Admin: 09/05/21 08:17 Dose: 50 mg Documented by: Clozapine (Clozapine 100 Mg Tablet) 150 mg PO BEDTIME [facility] Last Admin: 09/04/21 20:29 Dose: 150 mg Documented by: Clozapine (Clozapine 25 Mg Tablet) 50 mg PO DAILY@1330 [facility] Last Admin: 09/05/21 12:36 Dose: 50 mg Documented by: Hydroxyzine HCl (Hydroxyzine Hcl 25 Mg Tablet) 25 mg PO BEDTIME PRN PRN Reason: Anxiety Levothyroxine Sodium (Levothyroxine Sodium 175 Mcg Tablet) 175 mcg PO DAILY@0600 [facility] Last Admin: 09/05/21 05:04 Dose: 175 mcg Documented by: [place] Carbonate ([place] Carbonate 300 Mg Tablet) 450 mg PO BID [facility] Last Admin: 09/05/21 08:17 Dose: 450 mg Documented by: Magnesium Hydroxide (Milk Of Magnesia 30 Ml Oral.Susp) 30 ml PO DAILY PRN PRN Reason: Constipation Nystatin/Triamcinolone Acetonide (Nystatin/Triamcinolone Cream 15 Gm Tube) 1 appl TOPICAL BID [facility]; Protocol Trazodone HCl (Trazodone Hcl 50 Mg Tablet) 50 mg PO BEDTIME PRN PRN Reason: Insomnia Trazodone HCl (Trazodone Hcl 100 Mg Tablet) 100 mg PO BEDTIME [facility] Last Admin: 09/04/21 20:29 Dose: 100 mg Documented by: Trazodone HCl (Trazodone Hcl 50 Mg Tablet) 50 mg PO BEDTIME PRN PRN Reason: Insomnia Allergies Allergies Allergy/AdvReac Type Severity Reaction Status Date / Time house dust Allergy Intermediate watery eyes Verified 08/20/21 11:33 adhesive Allergy Unknown Unknown Verified 08/20/21 12:09 fenofibrate Allergy Unknown Unknown Verified 08/20/21 12:05 Sulfa (Sulfonamide Allergy Unknown unknown Verified 08/20/21 11:33 Antibiotics) tomato Allergy Unknown Unknown Verified 08/20/21 12:07 Yeast Allergy Unknown Unknown Verified 08/20/21 12:08 zolpidem [From Ambien] Allergy Unknown Unknown Verified 08/20/21 12:06 lactose AdvReac Unknown Unknown Verified 08/20/21 12:07 Assessment & Plan Assessment & Plan (1) Schizoaffective disorder, bipolar type: Status: Acute Code(s): F25.0 - Schizoaffective disorder, bipolar type (2) COVID-19: Status: Acute Code(s): U07.1 - COVID-19 (3) PAF (paroxysmal atrial fibrillation): Status: Acute Code(s): I48.0 - Paroxysmal atrial fibrillation Assessment and Plan: the patient is a 65-year-old male with a long history of schizoaffective disorder bipolar type who was initially admitted for exacerbation of psychosis and not responding to Clozaril and lithium. He was initially admitted into this unit on August 20 but later he was diagnosed of COVID and transfer to the medical floor. After being medically cleared he was transferred into this unit for continuation of treatment. Plan 1. Continue lithium as prescribed. 2. Increased closer in up to 50 mg p.o. b.i.d. and 150 mg p.o. q.h.s.. 3. Continue other medications. 4. CBC with ANC in 3 days. 5. Gather collateral information. I spent minutes with the patient and/or on the patient floor today, greater than?50% of which was spent counseling/coordinating care. Reason for contiued inpatient stay Substantial Risk for: inability to function, rapid decompensation and med/psych decompensation
[2021-09-05 18:00] VITALS: BP 126/65; PULSE 82; RESP 18; TEMP 37.7; O2SAT 96
[2021-09-05] MEDS: cloZAPine 100 MG TABLET 150 MG PO (20:04)
[2021-09-05] MEDS: traZODone HCL 100 MG TABLET PO (20:07)
[2021-09-05] MEDS: Nystatin/Triamcinolone Cream 15 GM TUBE 1 APPL TOPICAL (20:13)
[2021-09-06 06:00] VITALS: BP 128/80; PULSE 80; RESP 16; TEMP 37; O2SAT 98
[2021-09-06] MEDS: Levothyroxine Sodium 175 MCG TABLET PO (06:29)
[2021-09-06] MEDS: carvediloL 12.5 MG TABLET PO ×2 (09:01→20:08)
[2021-09-06] MEDS: Lithium Carbonate 300 MG TABLET 450 MG PO ×2 (09:01→20:11)
[2021-09-06] MEDS: Apixaban 5 MG TABLET PO ×2 (09:01→20:08)
[2021-09-06] MEDS: cloZAPine 25 MG TABLET 50 MG PO ×2 (09:02→14:27)
--- NOTE | 2021-09-06 11:37 | P.PNPSI_ITS ---
Subjective Subjective Date of Service: 09/06/21 Reason For Visit: Psychosis Interim History: giddy, euphoric. this is fun! also disorganized and tangential. does ask for an eyeball millstone cleaner, seems content to have artificial tears drops prescribed. no other questions or complaints. prt staff, eating and sleeping. in a good humor. Mental Status Exam Mental Status Exam Narrative: disheveled, hospital garb, poor dentition. cooperative, no PMA/PMR. speech incr in amount decr in latency. nml rate, loudness, prosody. thoughts disorganized. affect full range, normo-intense, non-labile. excessively happy. mood not assessed. no SI/HI/AVH expressed. Diagnostics Vital Signs (24Hr): Vital Signs - 24 hr 09/05/21 18:00 09/06/21 06:00 Temperature 99.8 F 98.6 F Pulse Rate 82 80 Respiratory Rate 18 16 Blood Pressure 126/65 128/80 Pulse Oximetry 96 98 BMI result Body Mass Index 34.9 Medications Medications Current Medications Acetaminophen (Acetaminophen 325 Mg Tablet) 650 mg PO Q6H PRN PRN Reason: Headache/Pain Mild Scale (1-3) Al Hydroxide/Mg Hydroxide (Magnesium Hydrox/Alum Hydrox 30 Ml Oral.Susp) 30 ml PO Q6H PRN PRN Reason: Heartburn/Nausea Apixaban (Apixaban 5 Mg Tablet) 5 mg PO BID [facility] Last Admin: 09/06/21 09:01 Dose: 5 mg Documented by: Artificial Tears (Artificial Tears 15 Ml Drops) 2 drop EYE-BOTH Q4H PRN PRN Reason: eye irritation Carvedilol (Carvedilol 12.5 Mg Tablet) 12.5 mg PO BID [facility]; Protocol Last Admin: 09/06/21 09:01 Dose: 12.5 mg Documented by: Clozapine (Clozapine 25 Mg Tablet) 50 mg PO DAILY [facility] Last Admin: 09/06/21 09:02 Dose: 50 mg Documented by: Clozapine (Clozapine 100 Mg Tablet) 150 mg PO BEDTIME [facility] Last Admin: 09/05/21 20:04 Dose: 150 mg Documented by: Clozapine (Clozapine 25 Mg Tablet) 50 mg PO DAILY@1330 [facility] Last Admin: 09/05/21 12:36 Dose: 50 mg Documented by: Hydroxyzine HCl (Hydroxyzine Hcl 25 Mg Tablet) 25 mg PO BEDTIME PRN PRN Reason: Anxiety Levothyroxine Sodium (Levothyroxine Sodium 175 Mcg Tablet) 175 mcg PO DAILY@0600 [facility] Last Admin: 09/06/21 06:29 Dose: 175 mcg Documented by: [place] Carbonate ([place] Carbonate 300 Mg Tablet) 450 mg PO BID [facility] Last Admin: 09/06/21 09:01 Dose: 450 mg Documented by: Magnesium Hydroxide (Milk Of Magnesia 30 Ml Oral.Susp) 30 ml PO DAILY PRN PRN Reason: Constipation Nystatin/Triamcinolone Acetonide (Nystatin/Triamcinolone Cream 15 Gm Tube) 1 appl TOPICAL BID [facility]; Protocol Last Admin: 09/06/21 09:04 Dose: Not Given Documented by: Trazodone HCl (Trazodone Hcl 50 Mg Tablet) 50 mg PO BEDTIME PRN PRN Reason: Insomnia Trazodone HCl (Trazodone Hcl 100 Mg Tablet) 100 mg PO BEDTIME [facility] Last Admin: 09/05/21 20:07 Dose: 100 mg Documented by: Trazodone HCl (Trazodone Hcl 50 Mg Tablet) 50 mg PO BEDTIME PRN PRN Reason: Insomnia Allergies Allergies Allergy/AdvReac Type Severity Reaction Status Date / Time house dust Allergy Intermediate watery eyes Verified 08/20/21 11:33 adhesive Allergy Unknown Unknown Verified 08/20/21 12:09 fenofibrate Allergy Unknown Unknown Verified 08/20/21 12:05 Sulfa (Sulfonamide Allergy Unknown unknown Verified 08/20/21 11:33 Antibiotics) tomato Allergy Unknown Unknown Verified 08/20/21 12:07 Yeast Allergy Unknown Unknown Verified 08/20/21 12:08 zolpidem [From Ambien] Allergy Unknown Unknown Verified 08/20/21 12:06 lactose AdvReac Unknown Unknown Verified 08/20/21 12:07 Assessment & Plan Assessment & Plan (1) Schizoaffective disorder, bipolar type: Status: Acute Code(s): F25.0 - Schizoaffective disorder, bipolar type (2) COVID-19: Status: Acute Code(s): U07.1 - COVID-19 (3) PAF (paroxysmal atrial fibrillation): Status: Acute Code(s): I48.0 - Paroxysmal atrial fibrillation Assessment and Plan: the patient is a 65-year-old male with a long history of schizoaffective disorder bipolar type who was initially admitted for exacerbation of psychosis and not responding to Clozaril and lithium. He was initially admitted into this unit on August 20 but later he was diagnosed of COVID and transfer to the medical floor. After being medically cleared he was transferred into this unit for continuation of treatment. Plan 1. Continue lithium as prescribed. 2. Increased clozaril up to 50 mg p.o. b.i.d. and 150 mg p.o. q.h.s.. 3. Continue other medications. 4. CBC with ANC in 2 days. 5. Gather collateral information. 09/06: artificial tears added I spent minutes with the patient and/or on the patient floor today, greater than?50% of which was spent counseling/coordinating care. Reason for contiued inpatient stay Substantial Risk for: inability to function
--- NOTE | 2021-09-06 18:14 | PC.NURSE ---
Pt reported to come onto floor with belongings, including cell phone, cell phone picking table worker, in a plastic bag. Reported this AM that pt will not allow staff to take the plastic bag, charging cord and cell phone, so pt was 1:1 for safety. [place] (OT) was able to remove the charging cord and plastic bag from the pt's room, but pt continued to not allow anyone to remove his cell phone. Security was called to assist with removing his phone. After the phone was removed the pt spoke to his Sister Nathaly on the phone, as pt was visibly upset. Pt resting quietly in his bed at the moment.
[2021-09-06] MEDS: cloZAPine 100 MG TABLET 150 MG PO (20:09)
[2021-09-06] MEDS: traZODone HCL 100 MG TABLET PO (20:12)
[2021-09-06] MEDS: Nystatin/Triamcinolone Cream 15 GM TUBE 1 APPL TOPICAL (20:12)
[2021-09-07] MEDS: traZODone HCL 50 MG TABLET PO (02:51)
[2021-09-07 06:00] VITALS: BP 136/68; PULSE 77; RESP 16; O2SAT 99
[2021-09-07] MEDS: Levothyroxine Sodium 175 MCG TABLET PO (06:32)
[2021-09-07] MEDS: carvediloL 12.5 MG TABLET PO ×2 (08:01→20:11)
[2021-09-07] MEDS: Lithium Carbonate 300 MG TABLET 450 MG PO ×2 (08:02→20:11)
[2021-09-07] MEDS: cloZAPine 25 MG TABLET 50 MG PO ×3 (08:02→13:37)
[2021-09-07] MEDS: Apixaban 5 MG TABLET PO ×2 (08:02→20:12)
--- NOTE | 2021-09-07 12:10 | P.PNPSI_ITS ---
Subjective Subjective Date of Service: 09/07/21 Reason For Visit: Psychosis Interim History: pt found resting in bed, awake, late morning. reports he is super good. states his only need from MD today is to get his eyes cleaned up. he is reminded of the artificial tears Rx from yesterday and encouraged to request drops from nursing staff. he has no other requests or complaints. per staff, eating, drinking, no issues. Mental Status Exam Mental Status Exam Narrative: disheveled, hospital garb, poor dentition. cooperative, no PMA/PMR. speech incr in amount decr in latency. nml rate, loudness, prosody. thoughts disorganized. affect full range, normo-intense, non-labile. excessively happy. mood not assessed. no SI/HI/AVH expressed. Diagnostics Vital Signs (24Hr): Vital Signs - 24 hr 09/07/21 06:00 Pulse Rate 77 Respiratory Rate 16 Blood Pressure 136/68 Pulse Oximetry 99 BMI result Body Mass Index 34.9 Medications Medications Current Medications Acetaminophen (Acetaminophen 325 Mg Tablet) 650 mg PO Q6H PRN PRN Reason: Headache/Pain Mild Scale (1-3) Al Hydroxide/Mg Hydroxide (Magnesium Hydrox/Alum Hydrox 30 Ml Oral.Susp) 30 ml PO Q6H PRN PRN Reason: Heartburn/Nausea Apixaban (Apixaban 5 Mg Tablet) 5 mg PO BID [facility] Last Admin: 09/07/21 08:02 Dose: 5 mg Documented by: Artificial Tears (Artificial Tears 15 Ml Drops) 2 drop EYE-BOTH Q4H PRN PRN Reason: eye irritation Carvedilol (Carvedilol 12.5 Mg Tablet) 12.5 mg PO BID [facility]; Protocol Last Admin: 09/07/21 08:01 Dose: 12.5 mg Documented by: Clozapine (Clozapine 25 Mg Tablet) 50 mg PO DAILY [facility] Last Admin: 09/07/21 08:02 Dose: 50 mg Documented by: Clozapine (Clozapine 100 Mg Tablet) 150 mg PO BEDTIME [facility] Last Admin: 09/06/21 20:09 Dose: 150 mg Documented by: Clozapine (Clozapine 25 Mg Tablet) 50 mg PO DAILY@1330 [facility] Last Admin: 09/06/21 14:27 Dose: 50 mg Documented by: Hydroxyzine HCl (Hydroxyzine Hcl 25 Mg Tablet) 25 mg PO BEDTIME PRN PRN Reason: Anxiety Levothyroxine Sodium (Levothyroxine Sodium 175 Mcg Tablet) 175 mcg PO DAILY@0600 [facility] Last Admin: 09/07/21 06:32 Dose: 175 mcg Documented by: [place] Carbonate ([place] Carbonate 300 Mg Tablet) 450 mg PO BID [facility] Last Admin: 09/07/21 08:02 Dose: 450 mg Documented by: Magnesium Hydroxide (Milk Of Magnesia 30 Ml Oral.Susp) 30 ml PO DAILY PRN PRN Reason: Constipation Nystatin/Triamcinolone Acetonide (Nystatin/Triamcinolone Cream 15 Gm Tube) 1 appl TOPICAL BID [facility]; Protocol Last Admin: 09/07/21 08:04 Dose: Not Given Documented by: Trazodone HCl (Trazodone Hcl 50 Mg Tablet) 50 mg PO BEDTIME PRN PRN Reason: Insomnia Trazodone HCl (Trazodone Hcl 100 Mg Tablet) 100 mg PO BEDTIME [facility] Last Admin: 09/06/21 20:12 Dose: 100 mg Documented by: Trazodone HCl (Trazodone Hcl 50 Mg Tablet) 50 mg PO BEDTIME PRN PRN Reason: Insomnia Last Admin: 09/07/21 02:51 Dose: 50 mg Documented by: Allergies Allergies Allergy/AdvReac Type Severity Reaction Status Date / Time house dust Allergy Intermediate watery eyes Verified 08/20/21 11:33 adhesive Allergy Unknown Unknown Verified 08/20/21 12:09 fenofibrate Allergy Unknown Unknown Verified 08/20/21 12:05 Sulfa (Sulfonamide Allergy Unknown unknown Verified 08/20/21 11:33 Antibiotics) tomato Allergy Unknown Unknown Verified 08/20/21 12:07 Yeast Allergy Unknown Unknown Verified 08/20/21 12:08 zolpidem [From Ambien] Allergy Unknown Unknown Verified 08/20/21 12:06 lactose AdvReac Unknown Unknown Verified 08/20/21 12:07 Assessment & Plan Assessment & Plan (1) Schizoaffective disorder, bipolar type: Status: Acute Code(s): F25.0 - Schizoaffective disorder, bipolar type (2) COVID-19: Status: Acute Code(s): U07.1 - COVID-19 (3) PAF (paroxysmal atrial fibrillation): Status: Acute Code(s): I48.0 - Paroxysmal atrial fibrillation Assessment and Plan: the patient is a 65-year-old male with a long history of schizoaffective disorder bipolar type who was initially admitted for exacerbation of psychosis and not responding to Clozaril and lithium. He was initially admitted into this unit on August 20 but later he was diagnosed of COVID and transfer to the medical floor. After being medically cleared he was transferred into this unit for continuation of treatment. Plan 1. Continue lithium as prescribed. 2. Increased clozaril up to 50 mg p.o. b.i.d. and 150 mg p.o. q.h.s.. 3. Continue other medications. 4. CBC with ANC in 2 days. 5. Gather collateral information. 09/06: artificial tears added I spent minutes with the patient and/or on the patient floor today, greater than?50% of which was spent counseling/coordinating care. Reason for contiued inpatient stay Substantial Risk for: inability to function and rapid decompensation
[2021-09-07] MEDS: Artificial Tears 15 ML DROPS 2 DROP EYE-BOTH ×3 (13:34→20:12)
[2021-09-07 18:00] VITALS: BP 145/76; PULSE 81; RESP 18; TEMP 37.1; O2SAT 95
[2021-09-07] MEDS: cloZAPine 100 MG TABLET 150 MG PO (20:11)
[2021-09-07] MEDS: traZODone HCL 100 MG TABLET PO (20:12)
[2021-09-08] MEDS: Levothyroxine Sodium 175 MCG TABLET PO (05:09)
[2021-09-08 08:00] VITALS: BP 135/72; PULSE 74; RESP 16; TEMP 37.1; O2SAT 100
[2021-09-08] MEDS: Nystatin/Triamcinolone Cream 15 GM TUBE 1 APPL TOPICAL ×2 (09:07→20:29)
[2021-09-08] MEDS: Artificial Tears 15 ML DROPS 2 DROP EYE-BOTH ×4 (09:07→20:29)
[2021-09-08] MEDS: carvediloL 12.5 MG TABLET PO ×2 (09:07→20:28)
[2021-09-08] MEDS: Apixaban 5 MG TABLET PO ×2 (09:08→20:28)
[2021-09-08] MEDS: Lithium Carbonate 300 MG TABLET 450 MG PO ×2 (09:08→20:27)
[2021-09-08] MEDS: cloZAPine 25 MG TABLET 50 MG PO ×2 (09:08→12:53)
--- NOTE | 2021-09-08 09:48 | HO.PSYCHPN ---
Subjective Subjective Date of Service: 09/08/21 Reason For Visit: Psychosis Subjective Notes: Conditional Voluntary Interim History: The nursing staff reported that the patient has been pleasant and cooperative, delusional but easily redirectable. On interview, the patient was pleasant, denies new symptoms, no evidence of side effects with increase of Clozaril. He postures at times but no evidence of agitation. Mental Status Exam Mental Status Exam Patient Appearance: Disheveled Patient Orientation: Person Level of Consciousness: Awake Patient Behavior: Cooperative and Confused Mood Description: Cheerful and Nervous Affect Description: Labile Patient Cognition Impaired: Yes Ability to Follow Directions: Good Speech Pattern: Rambling Hallucinations: None Delusions: Paranoid Ideation Thought Process: Racing and Evasive Thought Content: positive for Poverty of Content and positive for Loose Associations Judgement: Fair Diagnostics Vital Signs (24Hr): Vital Signs - 24 hr 09/07/21 18:00 Temperature 98.8 F Pulse Rate 81 Respiratory Rate 18 Blood Pressure 145/76 H Pulse Oximetry 95 BMI result Body Mass Index 34.9 Medications Medications Current Medications Acetaminophen (Acetaminophen 325 Mg Tablet) 650 mg PO Q6H PRN PRN Reason: Headache/Pain Mild Scale (1-3) Al Hydroxide/Mg Hydroxide (Magnesium Hydrox/Alum Hydrox 30 Ml Oral.Susp) 30 ml PO Q6H PRN PRN Reason: Heartburn/Nausea Apixaban (Apixaban 5 Mg Tablet) 5 mg PO BID [facility] Last Admin: 09/08/21 09:08 Dose: 5 mg Documented by: Artificial Tears (Artificial Tears 15 Ml Drops) 2 drop EYE-BOTH QID [facility] Last Admin: 09/08/21 09:07 Dose: 2 drop Documented by: Carvedilol (Carvedilol 12.5 Mg Tablet) 12.5 mg PO BID [facility]; Protocol Last Admin: 09/08/21 09:07 Dose: 12.5 mg Documented by: Clozapine (Clozapine 25 Mg Tablet) 50 mg PO DAILY [facility] Last Admin: 09/08/21 09:08 Dose: 50 mg Documented by: Clozapine (Clozapine 100 Mg Tablet) 150 mg PO BEDTIME [facility] Last Admin: 09/07/21 20:11 Dose: 150 mg Documented by: Clozapine (Clozapine 25 Mg Tablet) 50 mg PO DAILY@1330 [facility] Last Admin: 09/07/21 13:37 Dose: 50 mg Documented by: Hydroxyzine HCl (Hydroxyzine Hcl 25 Mg Tablet) 25 mg PO BEDTIME PRN PRN Reason: Anxiety Levothyroxine Sodium (Levothyroxine Sodium 175 Mcg Tablet) 175 mcg PO DAILY@0600 [facility] Last Admin: 09/08/21 05:09 Dose: 175 mcg Documented by: [place] Carbonate ([place] Carbonate 300 Mg Tablet) 450 mg PO BID [facility] Last Admin: 09/08/21 09:08 Dose: 450 mg Documented by: Magnesium Hydroxide (Milk Of Magnesia 30 Ml Oral.Susp) 30 ml PO DAILY PRN PRN Reason: Constipation Nystatin/Triamcinolone Acetonide (Nystatin/Triamcinolone Cream 15 Gm Tube) 1 appl TOPICAL BID [facility]; Protocol Last Admin: 09/08/21 09:07 Dose: 1 appl Documented by: Trazodone HCl (Trazodone Hcl 50 Mg Tablet) 50 mg PO BEDTIME PRN PRN Reason: Insomnia Trazodone HCl (Trazodone Hcl 100 Mg Tablet) 100 mg PO BEDTIME [facility] Last Admin: 09/07/21 20:12 Dose: 100 mg Documented by: Trazodone HCl (Trazodone Hcl 50 Mg Tablet) 50 mg PO BEDTIME PRN PRN Reason: Insomnia Last Admin: 09/07/21 02:51 Dose: 50 mg Documented by: Allergies Allergies Allergy/AdvReac Type Severity Reaction Status Date / Time house dust Allergy Intermediate watery eyes Verified 08/20/21 11:33 adhesive Allergy Unknown Unknown Verified 08/20/21 12:09 fenofibrate Allergy Unknown Unknown Verified 08/20/21 12:05 Sulfa (Sulfonamide Allergy Unknown unknown Verified 08/20/21 11:33 Antibiotics) tomato Allergy Unknown Unknown Verified 08/20/21 12:07 Yeast Allergy Unknown Unknown Verified 08/20/21 12:08 zolpidem [From Ambien] Allergy Unknown Unknown Verified 08/20/21 12:06 lactose AdvReac Unknown Unknown Verified 08/20/21 12:07 Assessment & Plan Assessment & Plan (1) Schizoaffective disorder, bipolar type: Status: Acute Code(s): F25.0 - Schizoaffective disorder, bipolar type (2) COVID-19: Status: Acute Code(s): U07.1 - COVID-19 (3) PAF (paroxysmal atrial fibrillation): Status: Acute Code(s): I48.0 - Paroxysmal atrial fibrillation Assessment and Plan: the patient is a 65-year-old male with a long history of schizoaffective disorder bipolar type who was initially admitted for exacerbation of psychosis and not responding to Clozaril and lithium. He was initially admitted into this unit on August 20 but later he was diagnosed of COVID and transfer to the medical floor. After being medically cleared he was transferred into this unit for continuation of treatment. Plan 1. Continue lithium as prescribed. 2. Keep Clozaril 50 mg p.o. b.i.d. and 150 mg p.o. q.h.s.. 3. Continue other medications. 4. CBC with ANC tomorrow a.m. 5. Gather collateral information. 6. CT head today routine. 7. MOCA test if possible tomorrow. I spent minutes with the patient and/or on the patient floor today, greater than?50% of which was spent counseling/coordinating care. Reason for contiued inpatient stay Substantial Risk for: inability to function, rapid decompensation and med/psych decompensation
[2021-09-08 18:00] VITALS: BP 146/67; PULSE 73; RESP 16; TEMP 36.7; O2SAT 94
[2021-09-08] MEDS: traZODone HCL 100 MG TABLET PO (20:28)
[2021-09-08] MEDS: cloZAPine 100 MG TABLET 150 MG PO (20:28)
[2021-09-09] MEDS: traZODone HCL 50 MG TABLET PO (00:40)
[2021-09-09] MEDS: hydrOXYzine HCL 25 MG TABLET PO (00:40)
[2021-09-09] MEDS: Levothyroxine Sodium 175 MCG TABLET PO (05:07)
[2021-09-09 06:00] VITALS: BP 125/58; PULSE 79; RESP 18; TEMP 37.1; O2SAT 94
[2021-09-09] MEDS: carvediloL 12.5 MG TABLET PO ×2 (08:06→20:19)
[2021-09-09] MEDS: Apixaban 5 MG TABLET PO ×2 (08:08→20:19)
[2021-09-09] MEDS: Artificial Tears 15 ML DROPS 2 DROP EYE-BOTH ×4 (08:08→20:19)
[2021-09-09] MEDS: Lithium Carbonate 300 MG TABLET 450 MG PO ×2 (08:08→20:22)
[2021-09-09] MEDS: Nystatin/Triamcinolone Cream 15 GM TUBE 1 APPL TOPICAL ×2 (08:08→20:23)
[2021-09-09 08:13] LABS: MANUAL DIFF FLAG NO
[2021-09-09 08:17] LABS: Basophils Percent Auto 0.4 % (0-2); Eosinophils Absolute Auto 0.3 X10*3/uL (0.0-0.4); Eosinophils Percent Auto 2.9 % (0-4); Hematocrit 34.3 % (42.0-52.0); Hemoglobin 11.2 g/dl (14.0-18.0); Imm Gran Abs Auto 0.03 X10*3/uL (0.00-0.03); Imm Gran Pct Auto 0.3 % (0.0-0.4); Lymphocytes Absolute Auto 1.5 X10*3/uL (1.2-4.9); Lymphocytes Percent Auto 16.1 % (20-40); Mean Corpuscular HGB Conc 32.7 g/dl (31.0-36.0); Mean Corpuscular Hemoglobin 28.9 pg (27.0-33.0); Mean Corpuscular Volume 88.4 fL (80.0-98.0); Mean Platelet Volume 9.9 fL (9.4-12.4); Monocytes Absolute Auto 0.9 X10*3/uL (0.1-1.2); Monocytes Percent Auto 10.1 % (2-11); Neutrophils Absolute Auto 6.5 x10*3/uL (2.0-8.3); Neutrophils Percent Auto 70.2 % (45-73); Platelet Count 360 X10*3/uL (160-400); Red Blood Count 3.88 X10*6/uL (4.60-5.80); Red Cell Distribution Width 13.4 % (11.0-16.0); White Blood Count 9.3 X10*3/uL (4.8-10.8)
[2021-09-09 08:29] LABS: Lithium 1.17 mmol/L (0.60-1.20)
[2021-09-09 08:34] LABS: Anion Gap 10 (12-20); Blood Urea Nitrogen 17 mg/dL (9-16); Calcium 9.5 mg/dL (8.4-10.2); Carbon Dioxide 25 mmol/L (22-29); Chloride 108 mmol/L (96-108); Creatinine Clr Calc Pharmacy 75.7; Estimated Glomerular Filt Rate > 60; Glucose Random 112 mg/dL (60-115); Potassium 3.9 mmol/L (3.3-5.1); Sodium 139 mmol/L (135-145)
--- NOTE | 2021-09-09 11:20 | HO.PSYCHPN ---
Subjective Subjective Date of Service: 09/09/21 Reason For Visit: Psychosis Subjective Notes: Conditional Voluntary Interim History: the nursing staff reported the patient has been pleasant and cooperative. He is fully compliant with his medication. The staff reported that in the evening he was crying and later on he was cheerful. Her son reported that he has episodes of mood lability. On interview, the patient reported he is doing just fine. On physical exam we noticed mild cogwheel and tremors on both of his hands. He denies new side effects. Mental Status Exam Mental Status Exam Patient Appearance: Disheveled and Appropriate Patient Orientation: Person and Situation Level of Consciousness: Awake Patient Behavior: Cooperative Mood Description: Labile Affect Description: Constricted Patient Cognition Impaired: Yes Ability to Follow Directions: Good Speech Pattern: Clear Hallucinations: None Delusions: Not Present Thought Process: Linear Thought Content: positive for Circumstantial and positive for Poverty of Content Judgement: Fair Diagnostics Vital Signs (24Hr): Vital Signs - 24 hr 09/08/21 18:00 09/09/21 06:00 Temperature 98.1 F 98.7 F Pulse Rate 73 79 Respiratory Rate 16 18 Blood Pressure 146/67 H 125/58 L Pulse Oximetry 94 94 BMI result Body Mass Index 34.9 Labs Results: 09/09/21 07:59 09/09/21 07:59 Labs: Laboratory Results - last 48 hr 09/09/21 09/09/21 09/09/21 07:59 07:59 07:59 WBC 9.3 RBC 3.88 L Hgb 11.2 L Hct 34.3 L MCV 88.4 MCH 28.9 MCHC 32.7 RDW 13.4 Plt Count 360 MPV 9.9 Immature Gran % (Auto) 0.3 Neut % (Auto) 70.2 Lymph % (Auto) 16.1 L [place] % (Auto) 10.1 Eos % (Auto) 2.9 Baso % (Auto) 0.4 Lymph # (Auto) 1.5 [place] # (Auto) 0.9 Eos # (Auto) 0.3 Baso # (Auto) 0.0 Abs Immat Gran (auto) 0.03 Absolute Neuts (auto) 6.5 Absolute Nucleated RBC 0.000 Nucleated RBC % (auto) 0.0 Sodium 139 Potassium 3.9 Chloride 108 Carbon Dioxide 25 Anion Gap 10 L BUN 17 H Creatinine 1.03 Estim Creat Clear Calc 75.7 Estimated GFR > 60 Random Glucose 112 Calcium 9.5 [place] 1.17 Medications Medications Current Medications Acetaminophen (Acetaminophen 325 Mg Tablet) 650 mg PO Q6H PRN PRN Reason: Headache/Pain Mild Scale (1-3) Al Hydroxide/Mg Hydroxide (Magnesium Hydrox/Alum Hydrox 30 Ml Oral.Susp) 30 ml PO Q6H PRN PRN Reason: Heartburn/Nausea Apixaban (Apixaban 5 Mg Tablet) 5 mg PO BID [facility] Last Admin: 09/09/21 08:08 Dose: 5 mg Documented by: Artificial Tears (Artificial Tears 15 Ml Drops) 2 drop EYE-BOTH QID [facility] Last Admin: 09/09/21 08:08 Dose: 2 drop Documented by: Carvedilol (Carvedilol 12.5 Mg Tablet) 12.5 mg PO BID [facility]; Protocol Last Admin: 09/09/21 08:06 Dose: 12.5 mg Documented by: Clozapine (Clozapine 25 Mg Tablet) 50 mg PO DAILY [facility] Last Admin: 09/08/21 09:08 Dose: 50 mg Documented by: Clozapine (Clozapine 100 Mg Tablet) 150 mg PO BEDTIME [facility] Last Admin: 09/08/21 20:28 Dose: 150 mg Documented by: Clozapine (Clozapine 25 Mg Tablet) 50 mg PO DAILY@1330 [facility] Last Admin: 09/08/21 12:53 Dose: 50 mg Documented by: Hydroxyzine HCl (Hydroxyzine Hcl 25 Mg Tablet) 25 mg PO BEDTIME PRN PRN Reason: Anxiety Last Admin: 09/09/21 00:40 Dose: 25 mg Documented by: Levothyroxine Sodium (Levothyroxine Sodium 175 Mcg Tablet) 175 mcg PO DAILY@0600 [facility] Last Admin: 09/09/21 05:07 Dose: 175 mcg Documented by: [place] Carbonate ([place] Carbonate 300 Mg Tablet) 450 mg PO BID [facility] Last Admin: 09/09/21 08:08 Dose: 450 mg Documented by: Magnesium Hydroxide (Milk Of Magnesia 30 Ml Oral.Susp) 30 ml PO DAILY PRN PRN Reason: Constipation Nystatin/Triamcinolone Acetonide (Nystatin/Triamcinolone Cream 15 Gm Tube) 1 appl TOPICAL BID [facility]; Protocol Last Admin: 09/09/21 08:08 Dose: 1 appl Documented by: Trazodone HCl (Trazodone Hcl 50 Mg Tablet) 50 mg PO BEDTIME PRN PRN Reason: Insomnia Last Admin: 09/09/21 00:40 Dose: 50 mg Documented by: Trazodone HCl (Trazodone Hcl 100 Mg Tablet) 100 mg PO BEDTIME [facility] Last Admin: 09/08/21 20:28 Dose: 100 mg Documented by: Trazodone HCl (Trazodone Hcl 50 Mg Tablet) 50 mg PO BEDTIME PRN PRN Reason: Insomnia Last Admin: 09/07/21 02:51 Dose: 50 mg Documented by: Allergies Allergies Allergy/AdvReac Type Severity Reaction Status Date / Time house dust Allergy Intermediate watery eyes Verified 08/20/21 11:33 adhesive Allergy Unknown Unknown Verified 08/20/21 12:09 fenofibrate Allergy Unknown Unknown Verified 08/20/21 12:05 Sulfa (Sulfonamide Allergy Unknown unknown Verified 08/20/21 11:33 Antibiotics) tomato Allergy Unknown Unknown Verified 08/20/21 12:07 Yeast Allergy Unknown Unknown Verified 08/20/21 12:08 zolpidem [From Ambien] Allergy Unknown Unknown Verified 08/20/21 12:06 lactose AdvReac Unknown Unknown Verified 08/20/21 12:07 Assessment & Plan Assessment & Plan (1) Schizoaffective disorder, bipolar type: Status: Acute Code(s): F25.0 - Schizoaffective disorder, bipolar type (2) COVID-19: Status: Acute Code(s): U07.1 - COVID-19 (3) PAF (paroxysmal atrial fibrillation): Status: Acute Code(s): I48.0 - Paroxysmal atrial fibrillation Assessment and Plan: the patient is a 65-year-old male with a long history of schizoaffective disorder bipolar type who was initially admitted for exacerbation of psychosis and not responding to Clozaril and lithium. He was initially admitted into this unit on August 20 but later he was diagnosed of COVID and transfer to the medical floor. After being medically cleared he was transferred into this unit for continuation of treatment. Plan 1. Continue lithium as prescribed. 2. Keep Clozaril 50 mg p.o. b.i.d. and 150 mg p.o. q.h.s.. 3. Continue other medications. 4. At the low dose of Cogentin 0.5 mg p.o. b.i.d. to target EPS. I spent minutes with the patient and/or on the patient floor today, greater than?50% of which was spent counseling/coordinating care. Reason for contiued inpatient stay Substantial Risk for: inability to function, rapid decompensation and med/psych decompensation
[2021-09-09] MEDS: cloZAPine 25 MG TABLET 50 MG PO (13:12)
[2021-09-09 18:00] VITALS: BP 121/56; PULSE 78; RESP 16; TEMP 36.7; O2SAT 97
[2021-09-09] MEDS: Benztropine Mesylate 0.5 MG TABLET PO (20:19)
[2021-09-09] MEDS: cloZAPine 100 MG TABLET 150 MG PO (20:20)
[2021-09-09] MEDS: traZODone HCL 100 MG TABLET PO (20:23)
[2021-09-10 06:00] VITALS: BP 150/69; PULSE 64; RESP 16; TEMP 35.8; O2SAT 97
[2021-09-10] MEDS: Levothyroxine Sodium 175 MCG TABLET PO (06:19)
[2021-09-10] MEDS: Apixaban 5 MG TABLET PO ×2 (08:26→20:16)
[2021-09-10] MEDS: Lithium Carbonate 300 MG CAPSULE PO (08:26)
[2021-09-10] MEDS: carvediloL 12.5 MG TABLET PO ×2 (08:26→20:19)
[2021-09-10] MEDS: Benztropine Mesylate 0.5 MG TABLET PO ×2 (08:26→20:19)
[2021-09-10] MEDS: cloZAPine 25 MG TABLET 50 MG PO ×2 (08:27→13:02)
[2021-09-10 08:33] VITALS: BP 141/74; PULSE 70; RESP 17; TEMP 36.3; O2SAT 99
--- NOTE | 2021-09-10 10:44 | P.PNPSI_ITS ---
Subjective Subjective Date of Service: 09/10/21 Reason For Visit: Psychosis Subjective Notes: Conditional Voluntary Interim History: The nursing staff reported that the patient has been tearful in the morning. It seems that he is very child age and it could be his baseline as per report of the assisted living facility staff. On interview, the patient denies new symptoms he is pleasant and cooperative no evidence of agitation or violent behavior. We will do a new CT scan today to rule out any vascular new problems. Mental Status Exam Mental Status Exam Patient Appearance: Disheveled and Unkempt Patient Orientation: Person Level of Consciousness: Awake Patient Behavior: Guarded and Passive Mood Description: Cheerful and Anxious Affect Description: Constricted Patient Cognition Impaired: Yes Ability to Follow Directions: Good Speech Pattern: Clear Hallucinations: None Delusions: Not Present Thought Process: Linear Thought Content: positive for Circumstantial, positive for Perseveration and positive for Poverty of Content Judgement: Fair Diagnostics Vital Signs (24Hr): Vital Signs - 24 hr 09/09/21 18:00 09/10/21 06:00 09/10/21 08:33 Temperature 98.1 F 96.5 F L 97.4 F Pulse Rate 78 64 70 Respiratory Rate 16 16 17 Blood Pressure 121/56 L 150/69 H 141/74 H Pulse Oximetry 97 97 99 BMI result Body Mass Index 34.9 Labs Results: 09/09/21 07:59 09/09/21 07:59 Labs: Laboratory Results - last 48 hr 09/09/21 09/09/21 09/09/21 07:59 07:59 07:59 WBC 9.3 RBC 3.88 L Hgb 11.2 L Hct 34.3 L MCV 88.4 MCH 28.9 MCHC 32.7 RDW 13.4 Plt Count 360 MPV 9.9 Immature Gran % (Auto) 0.3 Neut % (Auto) 70.2 Lymph % (Auto) 16.1 L Bates % (Auto) 10.1 Eos % (Auto) 2.9 Baso % (Auto) 0.4 Lymph # (Auto) 1.5 Bates # (Auto) 0.9 Eos # (Auto) 0.3 Baso # (Auto) 0.0 Abs Immat Gran (auto) 0.03 Absolute Neuts (auto) 6.5 Absolute Nucleated RBC 0.000 Nucleated RBC % (auto) 0.0 Sodium 139 Potassium 3.9 Chloride 108 Carbon Dioxide 25 Anion Gap 10 L BUN 17 H Creatinine 1.03 Estim Creat Clear Calc 75.7 Estimated GFR > 60 Random Glucose 112 Calcium 9.5 Gilmer 1.17 Medications Medications Current Medications Acetaminophen (Acetaminophen 325 Mg Tablet) 650 mg PO Q6H PRN PRN Reason: Headache/Pain Mild Scale (1-3) Al Hydroxide/Mg Hydroxide (Magnesium Hydrox/Alum Hydrox 30 Ml Oral.Susp) 30 ml PO Q6H PRN PRN Reason: Heartburn/Nausea Apixaban (Apixaban 5 Mg Tablet) 5 mg PO BID [facility] Last Admin: 09/10/21 08:26 Dose: 5 mg Documented by: Artificial Tears (Artificial Tears 15 Ml Drops) 2 drop EYE-BOTH QID [facility] Last Admin: 09/09/21 20:19 Dose: 2 drop Documented by: Benztropine Mesylate (Benztropine Mesylate 0.5 Mg Tablet) 0.5 mg PO BID [facility] Last Admin: 09/10/21 08:26 Dose: 0.5 mg Documented by: Carvedilol (Carvedilol 12.5 Mg Tablet) 12.5 mg PO BID [facility]; Protocol Last Admin: 09/10/21 08:26 Dose: 12.5 mg Documented by: Clozapine (Clozapine 25 Mg Tablet) 50 mg PO DAILY [facility] Last Admin: 09/10/21 08:27 Dose: 50 mg Documented by: Clozapine (Clozapine 100 Mg Tablet) 150 mg PO BEDTIME [facility] Last Admin: 09/09/21 20:20 Dose: 150 mg Documented by: Clozapine (Clozapine 25 Mg Tablet) 50 mg PO DAILY@1330 [facility] Last Admin: 09/09/21 13:12 Dose: 50 mg Documented by: Hydroxyzine HCl (Hydroxyzine Hcl 25 Mg Tablet) 25 mg PO BEDTIME PRN PRN Reason: Anxiety Last Admin: 09/09/21 00:40 Dose: 25 mg Documented by: Levothyroxine Sodium (Levothyroxine Sodium 175 Mcg Tablet) 175 mcg PO DAILY@0600 [facility] Last Admin: 09/10/21 06:19 Dose: 175 mcg Documented by: [place] Carbonate (Gilmer Carbonate 300 Mg Tablet) 450 mg PO BEDTIME [facility] Last Admin: 09/09/21 20:22 Dose: 450 mg Documented by: [place] Carbonate ([place] Carbonate 300 Mg Capsule) 300 mg PO DAILY [facility] Last Admin: 09/10/21 08:26 Dose: 300 mg Documented by: Magnesium Hydroxide (Milk Of Magnesia 30 Ml Oral.Susp) 30 ml PO DAILY PRN PRN Reason: Constipation Nystatin/Triamcinolone Acetonide (Nystatin/Triamcinolone Cream 15 Gm Tube) 1 appl TOPICAL BID [facility]; Protocol Last Admin: 09/09/21 20:23 Dose: 1 appl Documented by: Trazodone HCl (Trazodone Hcl 50 Mg Tablet) 50 mg PO BEDTIME PRN PRN Reason: Insomnia Last Admin: 09/09/21 00:40 Dose: 50 mg Documented by: Trazodone HCl (Trazodone Hcl 100 Mg Tablet) 100 mg PO BEDTIME [facility] Last Admin: 09/09/21 20:23 Dose: 100 mg Documented by: Trazodone HCl (Trazodone Hcl 50 Mg Tablet) 50 mg PO BEDTIME PRN PRN Reason: Insomnia Last Admin: 09/07/21 02:51 Dose: 50 mg Documented by: Allergies Allergies Allergy/AdvReac Type Severity Reaction Status Date / Time house dust Allergy Intermediate watery eyes Verified 08/20/21 11:33 adhesive Allergy Unknown Unknown Verified 08/20/21 12:09 fenofibrate Allergy Unknown Unknown Verified 08/20/21 12:05 Sulfa (Sulfonamide Allergy Unknown unknown Verified 08/20/21 11:33 Antibiotics) tomato Allergy Unknown Unknown Verified 08/20/21 12:07 Yeast Allergy Unknown Unknown Verified 08/20/21 12:08 zolpidem [From Ambien] Allergy Unknown Unknown Verified 08/20/21 12:06 lactose AdvReac Unknown Unknown Verified 08/20/21 12:07 Assessment & Plan Assessment & Plan (1) Schizoaffective disorder, bipolar type: Status: Acute Code(s): F25.0 - Schizoaffective disorder, bipolar type (2) COVID-19: Status: Acute Code(s): U07.1 - COVID-19 (3) PAF (paroxysmal atrial fibrillation): Status: Acute Code(s): I48.0 - Paroxysmal atrial fibrillation Assessment and Plan: the patient is a 65-year-old male with a long history of schizoaffective disorder bipolar type who was initially admitted for exacerbation of psychosis and not responding to Clozaril and lithium. He was initially admitted into this unit on August 20 but later he was diagnosed of COVID and transfer to the medical floor. After being medically cleared he was transferred into this unit for continuation of treatment. Plan 1. Continue lithium as prescribed. 2. Keep Clozaril 50 mg p.o. b.i.d. and 150 mg p.o. q.h.s.. 3. Continue other medications. 4. At the low dose of Cogentin 0.5 mg p.o. b.i.d. to target EPS. 5. Lower lithium up to 300 mg in the morning and 450 at night since he has tremors. 6. CT scan head today without contrast that came back normal I spent minutes with the patient and/or on the patient floor today, greater than?50% of which was spent counseling/coordinating care. Reason for contiued inpatient stay Substantial Risk for: inability to function, rapid decompensation and med/psych decompensation
[2021-09-10] MEDS: Nystatin/Triamcinolone Cream 15 GM TUBE 1 APPL TOPICAL ×2 (14:46→20:21)
[2021-09-10] MEDS: Artificial Tears 15 ML DROPS 2 DROP EYE-BOTH ×3 (14:46→20:21)
[2021-09-10 20:15] VITALS: BP 126/78; PULSE 87; RESP 18; TEMP 37.4; O2SAT 96
[2021-09-10] MEDS: Lithium Carbonate 300 MG TABLET 450 MG PO (20:16)
[2021-09-10] MEDS: traZODone HCL 100 MG TABLET PO (20:17)
[2021-09-10] MEDS: cloZAPine 100 MG TABLET 150 MG PO (20:19)
[2021-09-10] MEDS: hydrOXYzine HCL 25 MG TABLET PO (23:40)
[2021-09-11] MEDS: traZODone HCL 50 MG TABLET PO ×3 (00:59→22:13)
[2021-09-11] MEDS: Levothyroxine Sodium 175 MCG TABLET PO (04:52)
[2021-09-11 07:30] VITALS: BP 149/85; PULSE 87; RESP 16; TEMP 36.9; O2SAT 95
[2021-09-11] MEDS: Lithium Carbonate 300 MG CAPSULE PO (08:21)
[2021-09-11] MEDS: cloZAPine 25 MG TABLET 50 MG PO ×2 (08:21→13:09)
[2021-09-11] MEDS: Benztropine Mesylate 0.5 MG TABLET PO (08:21)
[2021-09-11] MEDS: carvediloL 12.5 MG TABLET PO ×2 (08:21→19:20)
[2021-09-11] MEDS: Apixaban 5 MG TABLET PO ×2 (08:21→19:20)
[2021-09-11 09:43] VITALS: BMI 34.1
[2021-09-11] MEDS: Nystatin/Triamcinolone Cream 15 GM TUBE 1 APPL TOPICAL ×2 (13:09→19:19)
[2021-09-11] MEDS: HaloperidoL 5 MG TABLET PO ×2 (13:40→22:13)
--- NOTE | 2021-09-11 14:46 | HO.PSYCHPN ---
Subjective Subjective Date of Service: 09/11/21 Reason For Visit: Psychosis Subjective Notes: Conditional Voluntary Interim History: The nursing staff reports the patient has been more disoriented and restless confused at times with labral mood. He gets agitated at times but he has recurred easily redirectable. He was incontinent of feces, something that he has never done in the last hours. His vital signs are stable. On interview, the patient was slightly agitated, confused with limited eye contact. Blood work and UA was ordered Mental Status Exam Mental Status Exam Patient Appearance: Inappropriate and Unkempt Patient Orientation: Person Level of Consciousness: Awake Patient Behavior: Guarded, Suspicious and Restless Mood Description: Cheerful and Anxious Affect Description: Anxious Patient Cognition Impaired: Yes Ability to Follow Directions: Fair Speech Pattern: Rapid and Loud Hallucinations: Auditory Delusions: Paranoid Ideation Thought Process: Illogical and Evasive Thought Content: positive for Perseveration, positive for Poverty of Content and positive for Disorganized Judgement: Poor Diagnostics Vital Signs (24Hr): Vital Signs - 24 hr 09/10/21 20:15 09/11/21 07:30 Temperature 99.4 F 98.5 F Pulse Rate 87 87 Respiratory Rate 18 16 Blood Pressure 126/78 149/85 H Pulse Oximetry 96 95 BMI result Body Mass Index 34.1 Labs Results: 09/09/21 07:59 09/09/21 07:59 Imaging Radiology Impressions: ITS Impressions Head CT 09/10/21 12:02 IMPRESSION: No acute intracranial findings. Mild premature changes maxillary sinuses. Medications Medications Current Medications Acetaminophen (Acetaminophen 325 Mg Tablet) 650 mg PO Q6H PRN PRN Reason: Headache/Pain Mild Scale (1-3) Al Hydroxide/Mg Hydroxide (Magnesium Hydrox/Alum Hydrox 30 Ml Oral.Susp) 30 ml PO Q6H PRN PRN Reason: Heartburn/Nausea Apixaban (Apixaban 5 Mg Tablet) 5 mg PO BID [facility] Last Admin: 09/11/21 08:21 Dose: 5 mg Documented by: Artificial Tears (Artificial Tears 15 Ml Drops) 2 drop EYE-BOTH QID [facility] Last Admin: 09/11/21 13:09 Dose: 2 drop Documented by: Benztropine Mesylate (Benztropine Mesylate 0.5 Mg Tablet) 0.5 mg PO BID [facility] Last Admin: 09/11/21 08:21 Dose: 0.5 mg Documented by: Carvedilol (Carvedilol 12.5 Mg Tablet) 12.5 mg PO BID [facility]; Protocol Last Admin: 09/11/21 08:21 Dose: 12.5 mg Documented by: Clozapine (Clozapine 25 Mg Tablet) 50 mg PO DAILY [facility] Last Admin: 09/11/21 08:21 Dose: 50 mg Documented by: Clozapine (Clozapine 100 Mg Tablet) 150 mg PO BEDTIME [facility] Last Admin: 09/10/21 20:19 Dose: 150 mg Documented by: Clozapine (Clozapine 25 Mg Tablet) 50 mg PO DAILY@1330 [facility] Last Admin: 09/11/21 13:09 Dose: 50 mg Documented by: Haloperidol (Haloperidol 5 Mg Tablet) 5 mg PO TID PRN PRN Reason: Psychosis Last Admin: 09/11/21 13:40 Dose: 5 mg Documented by: Hydroxyzine HCl (Hydroxyzine Hcl 25 Mg Tablet) 25 mg PO BEDTIME PRN PRN Reason: Anxiety Last Admin: 09/10/21 23:40 Dose: 25 mg Documented by: Levothyroxine Sodium (Levothyroxine Sodium 175 Mcg Tablet) 175 mcg PO DAILY@0600 [facility] Last Admin: 09/11/21 04:52 Dose: 175 mcg Documented by: [place] Carbonate (W[place]sey Carbonate 300 Mg Tablet) 450 mg PO BEDTIME [facility] Last Admin: 09/10/21 20:16 Dose: 450 mg Documented by: [place] Carbonate ([place] Carbonate 300 Mg Capsule) 300 mg PO DAILY [facility] Last Admin: 09/11/21 08:21 Dose: 300 mg Documented by: Magnesium Hydroxide (Milk Of Magnesia 30 Ml Oral.Susp) 30 ml PO DAILY PRN PRN Reason: Constipation Nystatin/Triamcinolone Acetonide (Nystatin/Triamcinolone Cream 15 Gm Tube) 1 appl TOPICAL BID [facility]; Protocol Last Admin: 09/11/21 13:09 Dose: 1 appl Documented by: Trazodone HCl (Trazodone Hcl 50 Mg Tablet) 50 mg PO BEDTIME PRN PRN Reason: Insomnia Last Admin: 09/11/21 00:59 Dose: 50 mg Documented by: Trazodone HCl (Trazodone Hcl 100 Mg Tablet) 100 mg PO BEDTIME [facility] Last Admin: 09/10/21 20:17 Dose: 100 mg Documented by: Trazodone HCl (Trazodone Hcl 50 Mg Tablet) 50 mg PO BEDTIME PRN PRN Reason: Insomnia Last Admin: 09/07/21 02:51 Dose: 50 mg Documented by: Allergies Allergies Allergy/AdvReac Type Severity Reaction Status Date / Time house dust Allergy Intermediate watery eyes Verified 08/20/21 11:33 adhesive Allergy Unknown Unknown Verified 08/20/21 12:09 fenofibrate Allergy Unknown Unknown Verified 08/20/21 12:05 Sulfa (Sulfonamide Allergy Unknown unknown Verified 08/20/21 11:33 Antibiotics) tomato Allergy Unknown Unknown Verified 08/20/21 12:07 Yeast Allergy Unknown Unknown Verified 08/20/21 12:08 zolpidem [From Ambien] Allergy Unknown Unknown Verified 08/20/21 12:06 lactose AdvReac Unknown Unknown Verified 08/20/21 12:07 Assessment & Plan Assessment & Plan (1) Schizoaffective disorder, bipolar type: Status: Acute Code(s): F25.0 - Schizoaffective disorder, bipolar type (2) COVID-19: Status: Acute Code(s): U07.1 - COVID-19 (3) PAF (paroxysmal atrial fibrillation): Status: Acute Code(s): I48.0 - Paroxysmal atrial fibrillation Assessment and Plan: the patient is a 65-year-old male with a long history of schizoaffective disorder bipolar type who was initially admitted for exacerbation of psychosis and not responding to Clozaril and lithium. He was initially admitted into this unit on August 20 but later he was diagnosed of COVID and transfer to the medical floor. After being medically cleared he was transferred into this unit for continuation of treatment. Plan 1. Continue lithium as prescribed. 2. Keep Clozaril 50 mg p.o. b.i.d. and 150 mg p.o. q.h.s.. 3. Continue other medications. 4. discontinue Cogentin 5. Lower lithium up to 300 mg in the morning and 450 at night since he has tremors. 6. CT scan head today without contrast that came back normal. 7. Blood work with UA I spent minutes with the patient and/or on the patient floor today, greater than?50% of which was spent counseling/coordinating care. Reason for contiued inpatient stay Substantial Risk for: inability to function, rapid decompensation and med/psych decompensation
[2021-09-11] MEDS: Artificial Tears 15 ML DROPS 2 DROP EYE-BOTH ×3 (16:34→19:19)
[2021-09-11] MEDS: Lithium Carbonate 300 MG TABLET 450 MG PO (19:19)
[2021-09-11] MEDS: hydrOXYzine HCL 25 MG TABLET PO (19:20)
[2021-09-11] MEDS: traZODone HCL 100 MG TABLET PO (19:20)
[2021-09-11] MEDS: cloZAPine 100 MG TABLET 150 MG PO (19:21)
[2021-09-11 19:29] VITALS: BP 151/81; PULSE 94; RESP 18; TEMP 36.6; O2SAT 96
[2021-09-11 23:39] LABS: Appearance Urine CLEAR; Color Urine YELLOW; Glucose Urine UA NEG (NEG); Leukocyte Esterase Urine NEG (NEG); Nitrite Urine NEG (NEG); Urine Blood NEG (NEG); Urine Ketones NEG (NEG); Urine Protein NEG (NEG-TRACE)
[2021-09-12] MEDS: Levothyroxine Sodium 175 MCG TABLET PO (05:38)
[2021-09-12 06:59] LABS: MANUAL DIFF FLAG NO
[2021-09-12 07:01] LABS: Basophils Percent Auto 0.3 % (0-2); Eosinophils Absolute Auto 0.3 X10*3/uL (0.0-0.4); Eosinophils Percent Auto 3.4 % (0-4); Hematocrit 34.2 % (42.0-52.0); Hemoglobin 11.1 g/dl (14.0-18.0); Imm Gran Abs Auto 0.02 X10*3/uL (0.00-0.03); Imm Gran Pct Auto 0.2 % (0.0-0.4); Lymphocytes Absolute Auto 1.5 X10*3/uL (1.2-4.9); Lymphocytes Percent Auto 16.8 % (20-40); Mean Corpuscular HGB Conc 32.5 g/dl (31.0-36.0); Mean Corpuscular Hemoglobin 28.9 pg (27.0-33.0); Mean Corpuscular Volume 89.1 fL (80.0-98.0); Mean Platelet Volume 9.8 fL (9.4-12.4); Monocytes Percent Auto 11.2 % (2-11); Neutrophils Absolute Auto 6.1 x10*3/uL (2.0-8.3); Neutrophils Percent Auto 68.1 % (45-73); Platelet Count 342 X10*3/uL (160-400); Red Blood Count 3.84 X10*6/uL (4.60-5.80); Red Cell Distribution Width 13.7 % (11.0-16.0); White Blood Count 8.9 X10*3/uL (4.8-10.8)
[2021-09-12 07:14] LABS: Lithium 1.06 mmol/L (0.60-1.20)
[2021-09-12 07:20] LABS: Anion Gap 13 (12-20); Blood Urea Nitrogen 13 mg/dL (9-16); Calcium 9.5 mg/dL (8.4-10.2); Carbon Dioxide 24 mmol/L (22-29); Chloride 108 mmol/L (96-108); Creatinine Clr Calc Pharmacy 65.9; Estimated Glomerular Filt Rate > 60; Glucose Random 136 mg/dL (60-115); Potassium 3.9 mmol/L (3.3-5.1); Sodium 141 mmol/L (135-145)
[2021-09-12 07:41] LABS: Thyroid Stimulating Hormone 3.21 uIU/mL (0.32-4.0)
[2021-09-12 08:00] VITALS: BP 128/63; PULSE 83; RESP 16; TEMP 36.7; O2SAT 97
[2021-09-12] MEDS: Lithium Carbonate 300 MG CAPSULE PO (08:15)
[2021-09-12] MEDS: cloZAPine 25 MG TABLET 50 MG PO ×2 (08:16→12:55)
[2021-09-12] MEDS: Apixaban 5 MG TABLET PO ×2 (08:16→20:43)
[2021-09-12] MEDS: carvediloL 12.5 MG TABLET PO ×2 (08:16→20:43)
[2021-09-12] MEDS: HaloperidoL 5 MG TABLET PO (08:17)
[2021-09-12] MEDS: Nystatin/Triamcinolone Cream 15 GM TUBE 1 APPL TOPICAL ×2 (08:17→20:44)
[2021-09-12] MEDS: Artificial Tears 15 ML DROPS 2 DROP EYE-BOTH ×3 (08:17→20:44)
--- NOTE | 2021-09-12 13:21 | P.PNPSI_ITS ---
Subjective Subjective Date of Service: 09/12/21 Reason For Visit: Psychosis Subjective Notes: Conditional Voluntary Interim History: the nursing staff reported that the patient was on one-to-one overnight since he was very agitated. He slept only 4 hours last night and he was incontinent. He also showed disinhibited behavior. On interview, the patient was pleasantly confused redirectable in the morning. Mental Status Exam Mental Status Exam Patient Appearance: Disheveled Patient Orientation: Person Level of Consciousness: Awake Patient Behavior: Cooperative Mood Description: Cheerful Affect Description: Constricted Patient Cognition Impaired: Yes Ability to Follow Directions: Good Speech Pattern: Spontaneous Speech and Loud Hallucinations: Auditory Delusions: Paranoid Ideation Thought Process: Illogical and Distracted Thought Content: positive for Circumstantial and positive for Poverty of Content Judgement: Fair Diagnostics Vital Signs (24Hr): Vital Signs - 24 hr 09/11/21 19:29 09/12/21 08:00 Temperature 97.9 F 98.1 F Pulse Rate 94 83 Respiratory Rate 18 16 Blood Pressure 151/81 H 128/63 Pulse Oximetry 96 97 BMI result Body Mass Index 34.1 Labs Results: 09/12/21 06:53 09/12/21 06:53 Labs: Laboratory Results - last 48 hr 09/11/21 09/12/21 09/12/21 23:25 06:53 06:53 WBC 8.9 RBC 3.84 L Hgb 11.1 L Hct 34.2 L MCV 89.1 MCH 28.9 MCHC 32.5 RDW 13.7 Plt Count 342 MPV 9.8 Immature Gran % (Auto) 0.2 Neut % (Auto) 68.1 Lymph % (Auto) 16.8 L [place] % (Auto) 11.2 H Eos % (Auto) 3.4 Baso % (Auto) 0.3 Lymph # (Auto) 1.5 [place] # (Auto) 1.0 Eos # (Auto) 0.3 Baso # (Auto) 0.0 Abs Immat Gran (auto) 0.02 Absolute Neuts (auto) 6.1 Absolute Nucleated RBC 0.000 Nucleated RBC % (auto) 0.0 Sodium Potassium Chloride Carbon Dioxide Anion Gap BUN Creatinine Estim Creat Clear Calc Estimated GFR Random Glucose Calcium TSH Urine Color YELLOW Urine Appearance CLEAR Urine pH 6.0 Ur Specific [place] 1.010 Urine Protein NEG Urine Glucose (UA) NEG Urine Ketones NEG Urine Blood NEG Urine Nitrite NEG Ur Leukocyte Esterase NEG Briar 1.06 09/12/21 06:53 WBC RBC Hgb Hct MCV MCH MCHC RDW Plt Count MPV Immature Gran % (Auto) Neut % (Auto) Lymph % (Auto) [place] % (Auto) Eos % (Auto) Baso % (Auto) Lymph # (Auto) [place] # (Auto) Eos # (Auto) Baso # (Auto) Abs Immat Gran (auto) Absolute Neuts (auto) Absolute Nucleated RBC Nucleated RBC % (auto) Sodium 141 Potassium 3.9 Chloride 108 Carbon Dioxide 24 Anion Gap 13 BUN 13 Creatinine 1.17 Estim Creat Clear Calc 65.9 Estimated GFR > 60 Random Glucose 136 H Calcium 9.5 TSH 3.21 Urine Color Urine Appearance Urine pH Ur Specific [place] Urine Protein Urine Glucose (UA) Urine Ketones Urine Blood Urine Nitrite Ur Leukocyte Esterase Briar Imaging Radiology Impressions: ITS Impressions Head CT 09/10/21 12:02 IMPRESSION: No acute intracranial findings. Mild premature changes maxillary sinuses. Medications Medications Current Medications Acetaminophen (Acetaminophen 325 Mg Tablet) 650 mg PO Q6H PRN PRN Reason: Headache/Pain Mild Scale (1-3) Al Hydroxide/Mg Hydroxide (Magnesium Hydrox/Alum Hydrox 30 Ml Oral.Susp) 30 ml PO Q6H PRN PRN Reason: Heartburn/Nausea Apixaban (Apixaban 5 Mg Tablet) 5 mg PO BID [facility] Last Admin: 09/12/21 08:16 Dose: 5 mg Documented by: Artificial Tears (Artificial Tears 15 Ml Drops) 2 drop EYE-BOTH QID [facility] Last Admin: 09/12/21 12:56 Dose: 2 drop Documented by: Carvedilol (Carvedilol 12.5 Mg Tablet) 12.5 mg PO BID [facility]; Protocol Last Admin: 09/12/21 08:16 Dose: 12.5 mg Documented by: Clozapine (Clozapine 25 Mg Tablet) 50 mg PO DAILY [facility] Last Admin: 09/12/21 08:16 Dose: 50 mg Documented by: Clozapine (Clozapine 100 Mg Tablet) 150 mg PO BEDTIME [facility] Last Admin: 09/11/21 19:21 Dose: 150 mg Documented by: Clozapine (Clozapine 25 Mg Tablet) 50 mg PO DAILY@1330 [facility] Last Admin: 09/12/21 12:55 Dose: 50 mg Documented by: Haloperidol (Haloperidol 5 Mg Tablet) 5 mg PO TID PRN PRN Reason: Psychosis Last Admin: 09/12/21 08:17 Dose: 5 mg Documented by: Levothyroxine Sodium (Levothyroxine Sodium 175 Mcg Tablet) 175 mcg PO DAILY@0600 [facility] Last Admin: 09/12/21 05:38 Dose: 175 mcg Documented by: Briar Carbonate (Briar Carbonate 300 Mg Tablet) 450 mg PO BEDTIME [facility] Last Admin: 09/11/21 19:19 Dose: 450 mg Documented by: Briar Carbonate (Briar Carbonate 300 Mg Capsule) 300 mg PO DAILY [facility] Last Admin: 09/12/21 08:15 Dose: 300 mg Documented by: Magnesium Hydroxide (Milk Of Magnesia 30 Ml Oral.Susp) 30 ml PO DAILY PRN PRN Reason: Constipation Nystatin/Triamcinolone Acetonide (Nystatin/Triamcinolone Cream 15 Gm Tube) 1 appl TOPICAL BID [facility]; Protocol Last Admin: 09/12/21 08:17 Dose: 1 appl Documented by: Trazodone HCl (Trazodone Hcl 50 Mg Tablet) 50 mg PO BEDTIME PRN PRN Reason: Insomnia Last Admin: 09/11/21 22:13 Dose: 50 mg Documented by: Trazodone HCl (Trazodone Hcl 100 Mg Tablet) 100 mg PO BEDTIME [facility] Last Admin: 09/11/21 19:20 Dose: 100 mg Documented by: Trazodone HCl (Trazodone Hcl 50 Mg Tablet) 50 mg PO BEDTIME PRN PRN Reason: Insomnia Last Admin: 09/07/21 02:51 Dose: 50 mg Documented by: Allergies Allergies Allergy/AdvReac Type Severity Reaction Status Date / Time house dust Allergy Intermediate watery eyes Verified 08/20/21 11:33 adhesive Allergy Unknown Unknown Verified 08/20/21 12:09 fenofibrate Allergy Unknown Unknown Verified 08/20/21 12:05 Sulfa (Sulfonamide Allergy Unknown unknown Verified 08/20/21 11:33 Antibiotics) tomato Allergy Unknown Unknown Verified 08/20/21 12:07 Yeast Allergy Unknown Unknown Verified 08/20/21 12:08 zolpidem [From Ambien] Allergy Unknown Unknown Verified 08/20/21 12:06 lactose AdvReac Unknown Unknown Verified 08/20/21 12:07 Assessment & Plan Assessment & Plan (1) Schizoaffective disorder, bipolar type: Status: Acute Code(s): F25.0 - Schizoaffective disorder, bipolar type (2) COVID-19: Status: Resolved Code(s): U07.1 - COVID-19 (3) PAF (paroxysmal atrial fibrillation): Status: Acute Code(s): I48.0 - Paroxysmal atrial fibrillation Assessment and Plan: the patient is a 65-year-old male with a long history of schizoaffective disorder bipolar type who was initially admitted for exacerbation of psychosis and not responding to Clozaril and lithium. He was initially admitted into this unit on August 20 but later he was diagnosed of COVID and transfer to the medical floor. After being medically cleared he was transferred into this unit for continuation of treatment. Plan 1. Continue lithium as prescribed. 2. Keep Clozaril 50 mg p.o. b.i.d. and 150 mg p.o. q.h.s.. 3. Continue other medications. 4. discontinue Cogentin 5. Lower lithium up to 300 mg in the morning and 450 at night since he has tremors. 6. Blood work for Wednesday. 7. Discontinue Atarax p.r.n. and at lorazepam as p.r.n.. I spent minutes with the patient and/or on the patient floor today, greater than?50% of which was spent counseling/coordinating care. Reason for contiued inpatient stay Substantial Risk for: inability to function, rapid decompensation and med/psych decompensation
[2021-09-12 18:00] VITALS: BP 170/89; PULSE 82; RESP 18; TEMP 36.7; O2SAT 97
[2021-09-12] MEDS: Lithium Carbonate 300 MG TABLET 450 MG PO (20:42)
[2021-09-12] MEDS: cloZAPine 100 MG TABLET 150 MG PO (20:43)
[2021-09-12] MEDS: traZODone HCL 100 MG TABLET PO (20:43)
[2021-09-13] MEDS: HaloperidoL 5 MG TABLET PO (00:08)
[2021-09-13] MEDS: traZODone HCL 50 MG TABLET PO (00:08)
[2021-09-13] MEDS: Levothyroxine Sodium 175 MCG TABLET PO (06:54)
--- NOTE | 2021-09-13 10:41 | P.PNPSI_ITS ---
Subjective Subjective Date of Service: 09/13/21 Reason For Visit: Psychosis Subjective Notes: Conditional Voluntary Medical Problems Affecting Mental Status: No Interim History: Patient was seen and discussed in rounds today. He is doing better. Continues to be very disorganized, labile with poor boundaries. Confused and intrusive. Current medications were reviewed. No complaints side effects reported. No changes were made today Medication Compliance: Yes Side effects from medications: No Review of Systems Review of Systems Yes all other systems are reviewed and are negative Constitutional: Reports as per HPI Eyes: Reports as per HPI and Reports no additional eye complaints Reports as per HPI Cardiovascular: Reports as per HPI and Reports no additional cardiovascular complaints Respiratory: Reports as per HPI and Reports no additional respiratory complaints Gastrointestinal: Reports as per HPI and Reports no additional gastrointestinal complaints Genitourinary: Reports no additional male genitourinary complaints and Reports as per HPI Musculoskeletal: Reports no additional musculoskeletal complaints and Reports as per HPI Skin/Breast: Reports system reviewed and no additional complaints, except as docu and Reports as per HPI Reports as per HPI and Reports Abnormal speech present (mumbling, inarticulate speech) Psychiatric: Reports no additional psychiatric complaints and Reports as per HPI Endocrine: Reports no additional endocrine complaints and Reports as per HPI Mental Status Exam Mental Status Exam Patient Appearance: Disheveled Patient Orientation: Person Level of Consciousness: Awake Patient Behavior: Cooperative Mood Description: Cheerful Affect Description: Constricted Patient Cognition Impaired: Yes Ability to Follow Directions: Good Speech Pattern: Spontaneous Speech and Loud Hallucinations: Auditory Delusions: Paranoid Ideation Thought Process: Illogical and Distracted Thought Content: positive for Circumstantial and positive for Poverty of Content Judgement: Fair Diagnostics Vital Signs (24Hr): Vital Signs - 24 hr 09/12/21 18:00 Temperature 98.0 F Pulse Rate 82 Respiratory Rate 18 Blood Pressure 170/89 H Pulse Oximetry 97 BMI result Body Mass Index 34.1 Labs Results: 09/12/21 06:53 09/12/21 06:53 Labs: Laboratory Results - last 48 hr 09/11/21 09/12/21 09/12/21 23:25 06:53 06:53 WBC 8.9 RBC 3.84 L Hgb 11.1 L Hct 34.2 L MCV 89.1 MCH 28.9 MCHC 32.5 RDW 13.7 Plt Count 342 MPV 9.8 Immature Gran % (Auto) 0.2 Neut % (Auto) 68.1 Lymph % (Auto) 16.8 L [place] % (Auto) 11.2 H Eos % (Auto) 3.4 Baso % (Auto) 0.3 Lymph # (Auto) 1.5 [place] # (Auto) 1.0 Eos # (Auto) 0.3 Baso # (Auto) 0.0 Abs Immat Gran (auto) 0.02 Absolute Neuts (auto) 6.1 Absolute Nucleated RBC 0.000 Nucleated RBC % (auto) 0.0 Sodium Potassium Chloride Carbon Dioxide Anion Gap BUN Creatinine Estim Creat Clear Calc Estimated GFR Random Glucose Calcium TSH Urine Color YELLOW Urine Appearance CLEAR Urine pH 6.0 Ur Specific [place] 1.010 Urine Protein NEG Urine Glucose (UA) NEG Urine Ketones NEG Urine Blood NEG Urine Nitrite NEG Ur Leukocyte Esterase NEG [place] 1.06 09/12/21 06:53 WBC RBC Hgb Hct MCV MCH MCHC RDW Plt Count MPV Immature Gran % (Auto) Neut % (Auto) Lymph % (Auto) [place] % (Auto) Eos % (Auto) Baso % (Auto) Lymph # (Auto) [place] # (Auto) Eos # (Auto) Baso # (Auto) Abs Immat Gran (auto) Absolute Neuts (auto) Absolute Nucleated RBC Nucleated RBC % (auto) Sodium 141 Potassium 3.9 Chloride 108 Carbon Dioxide 24 Anion Gap 13 BUN 13 Creatinine 1.17 Estim Creat Clear Calc 65.9 Estimated GFR > 60 Random Glucose 136 H Calcium 9.5 TSH 3.21 Urine Color Urine Appearance Urine pH Ur Specific [place] Urine Protein Urine Glucose (UA) Urine Ketones Urine Blood Urine Nitrite Ur Leukocyte Esterase [place] [facility] Radiology Impressions: [facility] Impressions Head CT 09/10/21 12:02 IMPRESSION: No acute intracranial findings. Mild premature changes maxillary sinuses. Medications Medications Current Medications Acetaminophen (Acetaminophen 325 Mg Tablet) 650 mg PO Q6H PRN PRN Reason: Headache/Pain Mild Scale (1-3) Al Hydroxide/Mg Hydroxide (Magnesium Hydrox/Alum Hydrox 30 Ml Oral.Susp) 30 ml PO Q6H PRN PRN Reason: Heartburn/Nausea Apixaban (Apixaban 5 Mg Tablet) 5 mg PO BID [facility] Last Admin: 09/12/21 20:43 Dose: 5 mg Documented by: Artificial Tears (Artificial Tears 15 Ml Drops) 2 drop EYE-BOTH QID [facility] Last Admin: 09/12/21 20:44 Dose: 2 drop Documented by: Carvedilol (Carvedilol 12.5 Mg Tablet) 12.5 mg PO BID [facility]; Protocol Last Admin: 09/12/21 20:43 Dose: 12.5 mg Documented by: Clozapine (Clozapine 25 Mg Tablet) 50 mg PO DAILY [facility] Last Admin: 09/12/21 08:16 Dose: 50 mg Documented by: Clozapine (Clozapine 100 Mg Tablet) 150 mg PO BEDTIME [facility] Last Admin: 09/12/21 20:43 Dose: 150 mg Documented by: Clozapine (Clozapine 25 Mg Tablet) 50 mg PO DAILY@1330 [facility] Last Admin: 09/12/21 12:55 Dose: 50 mg Documented by: Haloperidol (Haloperidol 5 Mg Tablet) 5 mg PO TID PRN PRN Reason: Psychosis Last Admin: 09/13/21 00:08 Dose: 5 mg Documented by: Levothyroxine Sodium (Levothyroxine Sodium 175 Mcg Tablet) 175 mcg PO DAILY@0600 [facility] Last Admin: 09/13/21 06:54 Dose: 175 mcg Documented by: [place] Carbonate ([place] Carbonate 300 Mg Tablet) 450 mg PO BEDTIME [facility] Last Admin: 09/12/21 20:42 Dose: 450 mg Documented by: [place] Carbonate ([place] Carbonate 300 Mg Capsule) 300 mg PO DAILY [facility] Last Admin: 09/12/21 08:15 Dose: 300 mg Documented by: Magnesium Hydroxide (Milk Of Magnesia 30 Ml Oral.Susp) 30 ml PO DAILY PRN PRN Reason: Constipation Nystatin/Triamcinolone Acetonide (Nystatin/Triamcinolone Cream 15 Gm Tube) 1 a ppl TOPICAL BID [facility]; Protocol Last Admin: 09/12/21 20:44 Dose: 1 appl Documented by: Trazodone HCl (Trazodone Hcl 50 Mg Tablet) 50 mg PO BEDTIME PRN PRN Reason: Insomnia Last Admin: 09/13/21 00:08 Dose: 50 mg Documented by: Trazodone HCl (Trazodone Hcl 100 Mg Tablet) 100 mg PO BEDTIME [facility] Last Admin: 09/12/21 20:43 Dose: 100 mg Documented by: Trazodone HCl (Trazodone Hcl 50 Mg Tablet) 50 mg PO BEDTIME PRN PRN Reason: Insomnia Last Admin: 09/07/21 02:51 Dose: 50 mg Documented by: Allergies Allergies Allergy/AdvReac Type Severity Reaction Status Date / Time house dust Allergy Intermediate watery eyes Verified 08/20/21 11:33 adhesive Allergy Unknown Unknown Verified 08/20/21 12:09 fenofibrate Allergy Unknown Unknown Verified 08/20/21 12:05 Sulfa (Sulfonamide Allergy Unknown unknown Verified 08/20/21 11:33 Antibiotics) tomato Allergy Unknown Unknown Verified 08/20/21 12:07 Yeast Allergy Unknown Unknown Verified 08/20/21 12:08 zolpidem [From Ambien] Allergy Unknown Unknown Verified 08/20/21 12:06 lactose AdvReac Unknown Unknown Verified 08/20/21 12:07 Assessment & Plan Assessment & Plan (1) Schizoaffective disorder, bipolar type: Status: Acute Code(s): F25.0 - Schizoaffective disorder, bipolar type (2) COVID-19: Status: Resolved Code(s): U07.1 - COVID-19 (3) PAF (paroxysmal atrial fibrillation): Status: Acute Code(s): I48.0 - Paroxysmal atrial fibrillation Assessment and Plan: the patient is a 65-year-old male with a long history of schizoaffective disorder bipolar type who was initially admitted for exacerbation of psychosis and not responding to Clozaril and lithium. He was initially admitted into this unit on August 20 but later he was diagnosed of COVID and transfer to the medical floor. After being medically cleared he was transferred into this unit for continuation of treatment. Plan 1. Continue lithium as prescribed. 2. Keep Clozaril 50 mg p.o. b.i.d. and 150 mg p.o. q.h.s.. 3. Continue other medications. 4. discontinue Cogentin 5. Lower lithium up to 300 mg in the morning and 450 at night since he has tremors. 6. Blood work for Wednesday. 7. Discontinue Atarax p.r.n. and at lorazepam as p.r.n.. 09/13/2021 Continue current regimen and plans. No changes were made today I spent minutes with the patient and/or on the patient floor today, greater than?50% of which was spent counseling/coordinating care. Reason for contiued inpatient stay Substantial Risk for: inability to function
[2021-09-13 10:42] VITALS: BP 151/78; PULSE 90; RESP 18; TEMP 36.7; O2SAT 93
[2021-09-13] MEDS: Lithium Carbonate 300 MG CAPSULE PO (10:58)
[2021-09-13] MEDS: cloZAPine 25 MG TABLET 50 MG PO ×2 (10:58→13:21)
[2021-09-13] MEDS: Apixaban 5 MG TABLET PO ×2 (10:58→21:26)
[2021-09-13] MEDS: carvediloL 12.5 MG TABLET PO ×2 (10:58→21:24)
[2021-09-13] MEDS: Artificial Tears 15 ML DROPS 2 DROP EYE-BOTH ×4 (13:20→21:26)
[2021-09-13] MEDS: Nystatin/Triamcinolone Cream 15 GM TUBE 1 APPL TOPICAL ×2 (14:19→21:26)
[2021-09-13 19:30] VITALS: BP 106/57; PULSE 77; RESP 18; TEMP 37.1; O2SAT 96
[2021-09-13] MEDS: cloZAPine 100 MG TABLET 150 MG PO (21:24)
[2021-09-13] MEDS: Lithium Carbonate 300 MG TABLET 450 MG PO (21:25)
[2021-09-13] MEDS: traZODone HCL 100 MG TABLET PO (21:26)
[2021-09-14] MEDS: Levothyroxine Sodium 175 MCG TABLET PO (05:05)
[2021-09-14 07:30] VITALS: BP 127/81; PULSE 71; RESP 16; TEMP 36.8; O2SAT 94
[2021-09-14] MEDS: cloZAPine 25 MG TABLET 50 MG PO ×2 (09:12→13:14)
[2021-09-14] MEDS: Apixaban 5 MG TABLET PO ×2 (09:12→20:15)
[2021-09-14] MEDS: Lithium Carbonate 300 MG CAPSULE PO (09:12)
[2021-09-14] MEDS: carvediloL 12.5 MG TABLET PO ×2 (09:13→20:15)
--- NOTE | 2021-09-14 10:05 | P.PNPSI_ITS ---
Subjective Subjective Date of Service: 09/14/21 Reason For Visit: Psychosis Subjective Notes: Conditional Voluntary Medical Problems Affecting Mental Status: No Interim History: Patient was seen in rounds today. The case was discussed in rounds. Records from plans were reviewed. He continues to show signs of response to internal stimuli. Talking in whispers. He has been med compliant. It in discussion with the staff he does not appear to be in need of one-to-one level of observation. We will observe whether he needs it at nights and if so the order will be placed then. No other changes were made today Medication Compliance: Yes Side effects from medications: No Review of Systems Review of Systems Yes all other systems are reviewed and are negative Constitutional: Reports as per HPI Eyes: Reports as per HPI and Reports no additional eye complaints Reports as per HPI Cardiovascular: Reports as per HPI and Reports no additional cardiovascular complaints Respiratory: Reports as per HPI and Reports no additional respiratory complaints Gastrointestinal: Reports as per HPI and Reports no additional gastrointestinal complaints Genitourinary: Reports no additional male genitourinary complaints and Reports as per HPI Musculoskeletal: Reports no additional musculoskeletal complaints and Reports as per HPI Skin/Breast: Reports system reviewed and no additional complaints, except as docu and Reports as per HPI Reports as per HPI and Reports Abnormal speech present (mumbling, inarticulate speech) Psychiatric: Reports no additional psychiatric complaints and Reports as per HPI Endocrine: Reports no additional endocrine complaints and Reports as per HPI Mental Status Exam Mental Status Exam Patient Appearance: Appropriate Patient Orientation: Person Level of Consciousness: Awake Patient Behavior: Cooperative Mood Description: Cheerful Affect Description: Constricted Patient Cognition Impaired: Yes Ability to Follow Directions: Good Speech Pattern: Spontaneous Speech and Loud Hallucinations: Auditory Delusions: Paranoid Ideation Thought Process: Illogical and Distracted Thought Content: positive for Circumstantial and positive for Poverty of Content Judgement: Fair Diagnostics Vital Signs (24Hr): Vital Signs - 24 hr 09/13/21 10:42 09/13/21 19:30 09/14/21 07:30 Temperature 98.0 F 98.8 F 98.2 F Pulse Rate 90 77 71 Respiratory Rate 18 18 16 Blood Pressure 151/78 H 106/57 L 127/81 Pulse Oximetry 93 96 94 BMI result Body Mass Index 34.1 Labs Results: 09/12/21 06:53 09/12/21 06:53 Imaging Radiology Impressions: [facility] Impressions Head CT 09/10/21 12:02 IMPRESSION: No acute intracranial findings. Mild premature changes maxillary sinuses. Medications Medications Current Medications Acetaminophen (Acetaminophen 325 Mg Tablet) 650 mg PO Q6H PRN PRN Reason: Headache/Pain Mild Scale (1-3) Al Hydroxide/Mg Hydroxide (Magnesium Hydrox/Alum Hydrox 30 Ml Oral.Susp) 30 ml PO Q6H PRN PRN Reason: Heartburn/Nausea Apixaban (Apixaban 5 Mg Tablet) 5 mg PO BID [facility] Last Admin: 09/14/21 09:12 Dose: 5 mg Documented by: Artificial Tears (Artificial Tears 15 Ml Drops) 2 drop EYE-BOTH QID [facility] Last Admin: 09/13/21 21:26 Dose: 2 drop Documented by: Carvedilol (Carvedilol 12.5 Mg Tablet) 12.5 mg PO BID [facility]; Protocol Last Admin: 09/14/21 09:13 Dose: 12.5 mg Documented by: Clozapine (Clozapine 25 Mg Tablet) 50 mg PO DAILY [facility] Last Admin: 09/14/21 09:12 Dose: 50 mg Documented by: Clozapine (Clozapine 100 Mg Tablet) 150 mg PO BEDTIME [facility] Last Admin: 09/13/21 21:24 Dose: 150 mg Documented by: Clozapine (Clozapine 25 Mg Tablet) 50 mg PO DAILY@1330 [facility] Last Admin: 09/13/21 13:21 Dose: 50 mg Documented by: Haloperidol (Haloperidol 5 Mg Tablet) 5 mg PO TID PRN PRN Reason: Psychosis Last Admin: 09/13/21 00:08 Dose: 5 mg Documented by: Levothyroxine Sodium (Levothyroxine Sodium 175 Mcg Tablet) 175 mcg PO DAILY@0600 [facility] Last Admin: 09/14/21 05:05 Dose: 175 mcg Documented by: [place] Carbonate ([place] Carbonate 300 Mg Tablet) 450 mg PO BEDTIME [facility] Last Admin: 09/13/21 21:25 Dose: 450 mg Documented by: [place] Carbonate ([place] Carbonate 300 Mg Capsule) 300 mg PO DAILY [facility] Last Admin: 09/14/21 09:12 Dose: 300 mg Documented by: Magnesium Hydroxide (Milk Of Magnesia 30 Ml Oral.Susp) 30 ml PO DAILY PRN PRN Reason: Constipation Nystatin/Triamcinolone Acetonide (Nystatin/Triamcinolone Cream 15 Gm Tube) 1 appl TOPICAL BID [facility]; Protocol Last Admin: 09/13/21 21:26 Dose: 1 appl Documented by: Trazodone HCl (Trazodone Hcl 50 Mg Tablet) 50 mg PO BEDTIME PRN PRN Reason: Insomnia Last Admin: 09/13/21 00:08 Dose: 50 mg Documented by: Trazodone HCl (Trazodone Hcl 100 Mg Tablet) 100 mg PO BEDTIME [facility] Last Admin: 09/13/21 21:26 Dose: 100 mg Documented by: Trazodone HCl (Trazodone Hcl 50 Mg Tablet) 50 mg PO BEDTIME PRN PRN Reason: Insomnia Last Admin: 09/07/21 02:51 Dose: 50 mg Documented by: Allergies Allergies Allergy/AdvReac Type Severity Reaction Status Date / Time house dust Allergy Intermediate watery eyes Verified 08/20/21 11:33 adhesive Allergy Unknown Unknown Verified 08/20/21 12:09 fenofibrate Allergy Unknown Unknown Verified 08/20/21 12:05 Sulfa (Sulfonamide Allergy Unknown unknown Verified 08/20/21 11:33 Antibiotics) tomato Allergy Unknown Unknown Verified 08/20/21 12:07 Yeast Allergy Unknown Unknown Verified 08/20/21 12:08 zolpidem [From Ambien] Allergy Unknown Unknown Verified 08/20/21 12:06 lactose AdvReac Unknown Unknown Verified 08/20/21 12:07 Assessment & Plan Assessment & Plan (1) Schizoaffective disorder, bipolar type: Status: Acute Code(s): F25.0 - Schizoaffective disorder, bipolar type (2) COVID-19: Status: Resolved Code(s): U07.1 - COVID-19 (3) PAF (paroxysmal atrial fibrillation): Status: Acute Code(s): I48.0 - Paroxysmal atrial fibrillation Assessment and Plan: the patient is a 65-year-old male with a long history of schi zoaffective disorder bipolar type who was initially admitted for exacerbation of psychosis and not responding to Clozaril and lithium. He was initially admitted into this unit on August 20 but later he was diagnosed of COVID and transfer to the medical floor. After being medically cleared he was transferred into this unit for continuation of treatment. Plan 1. Continue lithium as prescribed. 2. Keep Clozaril 50 mg p.o. b.i.d. and 150 mg p.o. q.h.s.. 3. Continue other medications. 4. discontinue Cogentin 5. Lower lithium up to 300 mg in the morning and 450 at night since he has tremors. 6. Blood work for Wednesday. 7. Discontinue Atarax p.r.n. and at lorazepam as p.r.n.. 09/13/2021 Continue current regimen and plans. No changes were made today 09/14/2021 Continue current regimen and plans. Discontinue one-to-one, to be reconsidered for nights I spent minutes with the patient and/or on the patient floor today, greater than?50% of which was spent counseling/coordinating care. Reason for contiued inpatient stay Substantial Risk for: inability to function
[2021-09-14] MEDS: Artificial Tears 15 ML DROPS 2 DROP EYE-BOTH ×3 (12:22→20:16)
[2021-09-14] MEDS: Nystatin/Triamcinolone Cream 15 GM TUBE 1 APPL TOPICAL ×2 (12:23→20:16)
[2021-09-14] MEDS: HaloperidoL 5 MG TABLET PO (17:56)
[2021-09-14 18:00] VITALS: BP 193/104; PULSE 85; TEMP 37.2; O2SAT 97
[2021-09-14 18:17] VITALS: BP 160/80
--- NOTE | 2021-09-14 18:23 | PC.NURSE ---
Patient exhibiting increasing tremors and drooling this shift. Vitals signs taken. Automated BP 193/104 Manual 160/80. aware. Efe ordered 1 mg po BID. Will continue to monitor.
[2021-09-14] MEDS: Benztropine Mesylate 0.5 MG TABLET 1 MG PO (20:15)
[2021-09-14] MEDS: traZODone HCL 100 MG TABLET PO (20:16)
[2021-09-14] MEDS: cloZAPine 100 MG TABLET 150 MG PO (20:16)
[2021-09-14] MEDS: Lithium Carbonate 300 MG TABLET 450 MG PO (20:16)
[2021-09-15] MEDS: Levothyroxine Sodium 175 MCG TABLET PO (05:51)
[2021-09-15 06:00] VITALS: BP 157/86; PULSE 78; RESP 17; TEMP 36.4; O2SAT 97
[2021-09-15] MEDS: cloZAPine 25 MG TABLET 50 MG PO ×2 (08:04→14:58)
[2021-09-15] MEDS: Lithium Carbonate 300 MG CAPSULE PO (08:04)
[2021-09-15] MEDS: Apixaban 5 MG TABLET PO ×2 (08:04→20:36)
[2021-09-15] MEDS: carvediloL 12.5 MG TABLET PO ×2 (08:04→20:37)
[2021-09-15] MEDS: Benztropine Mesylate 0.5 MG TABLET 1 MG PO ×2 (08:05→20:37)
[2021-09-15 08:39] LABS: MANUAL DIFF FLAG NO
[2021-09-15 08:42] LABS: Basophils Percent Auto 0.3 % (0-2); Eosinophils Absolute Auto 0.2 X10*3/uL (0.0-0.4); Eosinophils Percent Auto 2.3 % (0-4); Hematocrit 37.8 % (42.0-52.0); Hemoglobin 12.1 g/dl (14.0-18.0); Imm Gran Abs Auto 0.03 X10*3/uL (0.00-0.03); Imm Gran Pct Auto 0.3 % (0.0-0.4); Lymphocytes Absolute Auto 1.2 X10*3/uL (1.2-4.9); Lymphocytes Percent Auto 13.3 % (20-40); Mean Corpuscular Hemoglobin 29.4 pg (27.0-33.0); Mean Corpuscular Volume 91.7 fL (80.0-98.0); Mean Platelet Volume 10.1 fL (9.4-12.4); Monocytes Absolute Auto 0.7 X10*3/uL (0.1-1.2); Monocytes Percent Auto 7.7 % (2-11); Neutrophils Absolute Auto 6.6 x10*3/uL (2.0-8.3); Neutrophils Percent Auto 76.1 % (45-73); Platelet Count 351 X10*3/uL (160-400); Red Blood Count 4.12 X10*6/uL (4.60-5.80); White Blood Count 8.7 X10*3/uL (4.8-10.8)
[2021-09-15 08:48] LABS: Lithium 0.93 mmol/L (0.60-1.20)
[2021-09-15 08:57] LABS: Anion Gap 12 (12-20); Blood Urea Nitrogen 14 mg/dL (9-16); Calcium 9.7 mg/dL (8.4-10.2); Carbon Dioxide 24 mmol/L (22-29); Chloride 109 mmol/L (96-108); Cholesterol 150 mg/dL; Creatinine Clr Calc Pharmacy 62.6; Estimated Glomerular Filt Rate 59; Glucose Random 180 mg/dL (60-115); HDL Cholesterol 27 mg/dL; LDL Cholesterol Calculated 85 mg/dl; Potassium 4.4 mmol/L (3.3-5.1); Sodium 141 mmol/L (135-145); Triglycerides 190 mg/dL
[2021-09-15 08:58] LABS: Estimated Average Glucose 100 mg/dL; Hemoglobin A1c % 5.1 %
[2021-09-15 09:20] LABS: Thyroid Stimulating Hormone 1.16 uIU/mL (0.32-4.0)
--- NOTE | 2021-09-15 11:46 | P.PNPSI_ITS ---
Subjective Subjective Date of Service: 09/15/21 Reason For Visit: Psychosis Subjective Notes: Conditional Voluntary Interim History: The nursing staff reported that over the weekend the Cogentin was restarted since he was very shaky. His lithium level is 0.9 and still we are waiting for clozapine levels. He needed to be fed and he had unsteady gait. On interview the patient was pleasantly confused, nonsensical at times. His blood work came back with no abnormalities at this point Mental Status Exam Mental Status Exam Patient Appearance: Disheveled and Unkempt Patient Orientation: Person Level of Consciousness: Awake Patient Behavior: Talkative and Restless Mood Description: Withdrawn Affect Description: Cheerful and Labile Patient Cognition Impaired: Yes Ability to Follow Directions: Fair Speech Pattern: Spontaneous Speech, Rambling and Animated Hallucinations: None Delusions: Paranoid Ideation Thought Process: Illogical and Word Salad Thought Content: positive for Disoriented, positive for Poverty of Content and positive for Thought Blocking Judgement: Poor Diagnostics Vital Signs (24Hr): Vital Signs - 24 hr 09/14/21 18:00 09/14/21 18:17 09/15/21 06:00 Temperature 99.0 F 97.5 F Pulse Rate 85 78 Respiratory Rate 17 Blood Pressure 193/104 H 160/80 H 157/86 H Pulse Oximetry 97 97 BMI result Body Mass Index 34.1 Labs Results: 09/15/21 08:31 09/15/21 08:31 Labs: Laboratory Results - last 48 hr 09/15/21 09/15/21 09/15/21 08:31 08:31 08:31 WBC 8.7 RBC 4.12 L Hgb 12.1 L Hct 37.8 L MCV 91.7 MCH 29.4 MCHC 32.0 RDW 14.0 Plt Count 351 MPV 10.1 Immature Gran % (Auto) 0.3 Neut % (Auto) 76.1 H Lymph % (Auto) 13.3 L [place] % (Auto) 7.7 Eos % (Auto) 2.3 Baso % (Auto) 0.3 Lymph # (Auto) 1.2 [place] # (Auto) 0.7 Eos # (Auto) 0.2 Baso # (Auto) 0.0 Abs Immat Gran (auto) 0.03 Absolute Neuts (auto) 6.6 Absolute Nucleated RBC 0.000 Nucleated RBC % (auto) 0.0 Sodium 141 Potassium 4.4 Chloride 109 H Carbon Dioxide 24 Anion Gap 12 BUN 14 Creatinine 1.23 Estim Creat Clear Calc 62.6 Estimated GFR 59 Random Glucose 180 H Estimat Average Glucose 100 Hemoglobin A1c % 5.1 Calcium 9.7 Triglycerides 190 Cholesterol 150 LDL Cholesterol, Calc 85 HDL Cholesterol 27 TSH 1.16 [place] 09/15/21 08:31 WBC RBC Hgb Hct MCV MCH MCHC RDW Plt Count MPV Immature Gran % (Auto) Neut % (Auto) Lymph % (Auto) [place] % (Auto) Eos % (Auto) Baso % (Auto) Lymph # (Auto) [place] # (Auto) Eos # (Auto) Baso # (Auto) Abs Immat Gran (auto) Absolute Neuts (auto) Absolute Nucleated RBC Nucleated RBC % (auto) Sodium Potassium Chloride Carbon Dioxide Anion Gap BUN Creatinine Estim Creat Clear Calc Estimated GFR Random Glucose Estimat Average Glucose Hemoglobin A1c % Calcium Triglycerides Cholesterol LDL Cholesterol, Calc HDL Cholesterol TSH [place] 0.93 Imaging Radiology Impressions: [facility] Impressions Head CT 09/10/21 12:02 IMPRESSION: No acute intracranial findings. Mild premature changes maxillary sinuses. Medications Medications Current Medications Acetaminophen (Acetaminophen 325 Mg Tablet) 650 mg PO Q6H PRN PRN Reason: Headache/Pain Mild Scale (1-3) Al Hydroxide/Mg Hydroxide (Magnesium Hydrox/Alum Hydrox 30 Ml Oral.Susp) 30 ml PO Q6H PRN PRN Reason: Heartburn/Nausea Apixaban (Apixaban 5 Mg Tablet) 5 mg PO BID [facility] Last Admin: 09/15/21 08:04 Dose: 5 mg Documented by: Artificial Tears (Artificial Tears 15 Ml Drops) 2 drop EYE-BOTH QID [facility] Last Admin: 09/15/21 09:57 Dose: Not Given Documented by: Benztropine Mesylate (Benztropine Mesylate 0.5 Mg Tablet) 1 mg PO BID [facility] Last Admin: 09/15/21 08:05 Dose: 1 mg Documented by: Carvedilol (Carvedilol 12.5 Mg Tablet) 12.5 mg PO BID [facility]; Protocol Last Admin: 09/15/21 08:04 Dose: 12.5 mg Documented by: Clozapine (Clozapine 25 Mg Tablet) 50 mg PO DAILY [facility] Last Admin: 09/15/21 08:04 Dose: 50 mg Documented by: Clozapine (Clozapine 100 Mg Tablet) 150 mg PO BEDTIME [facility] Last Admin: 09/14/21 20:16 Dose: 150 mg Documented by: Clozapine (Clozapine 25 Mg Tablet) 50 mg PO DAILY@1330 [facility] Last Admin: 09/14/21 13:14 Dose: 50 mg Documented by: Haloperidol (Haloperidol 5 Mg Tablet) 5 mg PO TID PRN PRN Reason: Psychosis Last Admin: 09/14/21 17:56 Dose: 5 mg Documented by: Levothyroxine Sodium (Levothyroxine Sodium 175 Mcg Tablet) 175 mcg PO SONIA LY@0600 [facility] Last Admin: 09/15/21 05:51 Dose: 175 mcg Documented by: [place] Carbonate ([place] Carbonate 300 Mg Tablet) 450 mg PO BEDTIME [facility] Last Admin: 09/14/21 20:16 Dose: 450 mg Documented by: [place] Carbonate ([place] Carbonate 300 Mg Capsule) 300 mg PO DAILY [facility] Last Admin: 09/15/21 08:04 Dose: 300 mg Documented by: Magnesium Hydroxide (Milk Of Magnesia 30 Ml Oral.Susp) 30 ml PO DAILY PRN PRN Reason: Constipation Nystatin/Triamcinolone Acetonide (Nystatin/Triamcinolone Cream 15 Gm Tube) 1 appl TOPICAL BID [facility]; Protocol Last Admin: 09/14/21 20:16 Dose: 1 appl Documented by: Trazodone HCl (Trazodone Hcl 50 Mg Tablet) 50 mg PO BEDTIME PRN PRN Reason: Insomnia Last Admin: 09/13/21 00:08 Dose: 50 mg Documented by: Trazodone HCl (Trazodone Hcl 100 Mg Tablet) 100 mg PO BEDTIME [facility] Last Admin: 09/14/21 20:16 Dose: 100 mg Documented by: Trazodone HCl (Trazodone Hcl 50 Mg Tablet) 50 mg PO BEDTIME PRN PRN Reason: Insomnia Last Admin: 09/07/21 02:51 Dose: 50 mg Documented by: Allergies Allergies Allergy/AdvReac Type Severity Reaction Status Date / Time house dust Allergy Intermediate watery eyes Verified 08/20/21 11:33 adhesive Allergy Unknown Unknown Verified 08/20/21 12:09 fenofibrate Allergy Unknown Unknown Verified 08/20/21 12:05 Sulfa (Sulfonamide Allergy Unknown unknown Verified 08/20/21 11:33 Antibiotics) tomato Allergy Unknown Unknown Verified 08/20/21 12:07 Yeast Allergy Unknown Unknown Verified 08/20/21 12:08 zolpidem [From Ambien] Allergy Unknown Unknown Verified 08/20/21 12:06 lactose AdvReac Unknown Unknown Verified 08/20/21 12:07 Assessment & Plan Assessment & Plan (1) Schizoaffective disorder, bipolar type: Status: Acute Code(s): F25.0 - Schizoaffective disorder, bipolar type (2) COVID-19: Status: Resolved Code(s): U07.1 - COVID-19 (3) PAF (paroxysmal atrial fibrillation): Status: Acute Code(s): I48.0 - Paroxysmal atrial fibrillation Assessment and Plan: the patient is a 65-year-old male with a long history of schizoaffective disorder bipolar type who was initially admitted for exacerbation of psychosis and not responding to Clozaril and lithium. He was initially admitted into this unit on August 20 but later he was diagnosed of COVID and transfer to the medical floor. After being medically cleared he was transferred into this unit for continuation of treatment. Plan 1. Continue lithium as prescribed. 2. Keep Clozaril 50 mg p.o. b.i.d. and 150 mg p.o. q.h.s.. 3. Continue other medications. 4. Cogentin was restarted due to tremors 5. Discontinue Atarax p.r.n. and at lorazepam as p.r.n.. 6. Discontinue one-to-one I spent minutes with the patient and/or on the patient floor today, greater than?50% of which was spent counseling/coordinating care. Reason for contiued inpatient stay Substantial Risk for: harm to self, inability to function, rapid decompensation and med/psych decompensation
[2021-09-15] MEDS: Artificial Tears 15 ML DROPS 2 DROP EYE-BOTH ×3 (15:00→20:45)
[2021-09-15 18:00] VITALS: BP 173/93; PULSE 90; RESP 16; TEMP 36.9; O2SAT 96
[2021-09-15] MEDS: cloZAPine 100 MG TABLET 150 MG PO (20:37)
[2021-09-15] MEDS: Lithium Carbonate 300 MG TABLET 450 MG PO (20:38)
[2021-09-15] MEDS: traZODone HCL 100 MG TABLET PO (20:39)
[2021-09-15] MEDS: Nystatin/Triamcinolone Cream 15 GM TUBE 1 APPL TOPICAL (20:45)
[2021-09-16 06:00] VITALS: BP 159/78; PULSE 68; RESP 17; TEMP 36.5; O2SAT 97
[2021-09-16] MEDS: Levothyroxine Sodium 175 MCG TABLET PO (06:37)
[2021-09-16] MEDS: cloZAPine 25 MG TABLET 50 MG PO (08:12)
[2021-09-16] MEDS: Lithium Carbonate 300 MG CAPSULE PO (08:13)
[2021-09-16] MEDS: Benztropine Mesylate 0.5 MG TABLET 1 MG PO ×2 (08:13→20:04)
[2021-09-16] MEDS: carvediloL 12.5 MG TABLET PO ×2 (08:13→20:04)
[2021-09-16] MEDS: Apixaban 5 MG TABLET PO ×2 (08:13→20:02)
[2021-09-16] MEDS: Nystatin/Triamcinolone Cream 15 GM TUBE 1 APPL TOPICAL ×2 (08:15→20:02)
[2021-09-16] MEDS: Artificial Tears 15 ML DROPS 2 DROP EYE-BOTH ×2 (10:25→20:02)
--- NOTE | 2021-09-16 15:51 | P.PNPSI_ITS ---
Subjective Subjective Date of Service: 09/16/21 Reason For Visit: Psychosis Interim History: the nursing staff reported the patient has been restless at times. His intrusive with peers and he needs to be on constant observation. He slept fairly well and he is able to follow directions. On interview, the patient was watching cartoons and he seemed pleasantly confused at times Mental Status Exam Mental Status Exam Patient Appearance: Unkempt Patient Orientation: Person Level of Consciousness: Awake Patient Behavior: Guarded, Talkative and Suspicious Mood Description: Withdrawn Affect Description: Constricted Patient Cognition Impaired: Yes Ability to Follow Directions: Good Speech Pattern: Rapid Hallucinations: None Delusions: Not Present Thought Process: Illogical and Evasive Thought Content: positive for [place] Judgement: Poor Diagnostics Vital Signs (24Hr): Vital Signs - 24 hr 09/15/21 18:00 09/16/21 06:00 Temperature 98.4 F 97.7 F Pulse Rate 90 68 Respiratory Rate 16 17 Blood Pressure 173/93 H 159/78 H Pulse Oximetry 96 97 BMI result Body Mass Index 34.1 Labs Results: 09/15/21 08:31 09/15/21 08:31 Labs: Laboratory Results - last 48 hr 09/15/21 09/15/21 09/15/21 08:31 08:31 08:31 WBC 8.7 RBC 4.12 L Hgb 12.1 L Hct 37.8 L MCV 91.7 MCH 29.4 MCHC 32.0 RDW 14.0 Plt Count 351 MPV 10.1 Immature Gran % (Auto) 0.3 Neut % (Auto) 76.1 H Lymph % (Auto) 13.3 L [place] % (Auto) 7.7 Eos % (Auto) 2.3 Baso % (Auto) 0.3 Lymph # (Auto) 1.2 [place] # (Auto) 0.7 Eos # (Auto) 0.2 Baso # (Auto) 0.0 Abs Immat Gran (auto) 0.03 Absolute Neuts (auto) 6.6 Absolute Nucleated RBC 0.000 Nucleated RBC % (auto) 0.0 Sodium 141 Potassium 4.4 Chloride 109 H Carbon Dioxide 24 Anion Gap 12 BUN 14 Creatinine 1.23 Estim Creat Clear Calc 62.6 Estimated GFR 59 Random Glucose 180 H Estimat Average Glucose 100 Hemoglobin A1c % 5.1 Calcium 9.7 Triglycerides 190 Cholesterol 150 LDL Cholesterol, Calc 85 HDL Cholesterol 27 TSH 1.16 [place] 09/15/21 08:31 WBC RBC Hgb Hct MCV MCH MCHC RDW Plt Count MPV Immature Gran % (Auto) Neut % (Auto) Lymph % (Auto) [place] % (Auto) Eos % (Auto) Baso % (Auto) Lymph # (Auto) [place] # (Auto) Eos # (Auto) Baso # (Auto) Abs Immat Gran (auto) Absolute Neuts (auto) Absolute Nucleated RBC Nucleated RBC % (auto) Sodium Potassium Chloride Carbon Dioxide Anion Gap BUN Creatinine Estim Creat Clear Calc Estimated GFR Random Glucose Estimat Average Glucose Hemoglobin A1c % Calcium Triglycerides Cholesterol LDL Cholesterol, Calc HDL Cholesterol TSH [place] 0.93 Imaging Radiology Impressions: ITS Impressions Head CT 09/10/21 12:02 IMPRESSION: No acute intracranial findings. Mild premature changes maxillary sinuses. Medications Medications Current Medications Acetaminophen (Acetaminophen 325 Mg Tablet) 650 mg PO Q6H PRN PRN Reason: Headache/Pain Mild Scale (1-3) Al Hydroxide/Mg Hydroxide (Magnesium Hydrox/Alum Hydrox 30 Ml Oral.Susp) 30 ml PO Q6H PRN PRN Reason: Heartburn/Nausea Apixaban (Apixaban 5 Mg Tablet) 5 mg PO BID [facility] Last Admin: 09/16/21 08:13 Dose: 5 mg Documented by: Artificial Tears (Artificial Tears 15 Ml Drops) 2 drop EYE-BOTH QID [facility] Last Admin: 09/16/21 10:25 Dose: 2 drop Documented by: Benztropine Mesylate (Benztropine Mesylate 0.5 Mg Tablet) 1 mg PO BID [facility] Last Admin: 09/16/21 08:13 Dose: 1 mg Documented by: Carvedilol (Carvedilol 12.5 Mg Tablet) 12.5 mg PO BID [facility]; Protocol Last Admin: 09/16/21 08:13 Dose: 12.5 mg Documented by: Clozapine (Clozapine 25 Mg Tablet) 50 mg PO DAILY [facility] Last Admin: 09/16/21 08:12 Dose: 50 mg Documented by: Clozapine (Clozapine 100 Mg Tablet) 150 mg PO BEDTIME [facility] Last Admin: 09/15/21 20:37 Dose: 150 mg Documented by: Clozapine (Clozapine 25 Mg Tablet) 50 mg PO DAILY@1330 [facility] Last Admin: 09/15/21 14:58 Dose: 50 mg Documented by: Haloperidol (Haloperidol 5 Mg Tablet) 5 mg PO TID PRN PRN Reason: Psychosis Last Admin: 09/14/21 17:56 Dose: 5 mg Documented by: Levothyroxine Sodium (Levothyroxine Sodium 175 Mcg Tablet) 175 mcg PO DAILY@0600 [facility] Last Admin: 09/16/21 06:37 Dose: 175 mcg Documented by: [place] Carbonate ([place] Carbonate 300 Mg Tablet) 450 mg PO BEDTIME [facility] Last Admin: 09/15/21 20:38 Dose: 450 mg Documented by: [place] Carbonate ([place] Carbonate 300 Mg Capsule) 300 mg PO DAILY [facility] Last Admin: 09/16/21 08:13 Dose: 300 mg Documented by: Magnesium Hydroxide (Milk Of Magnesia 30 Ml Oral.Susp) 30 ml PO DAILY PRN PRN Reason: Constipation Nystatin/Triamcinolone Acetonide (Nystatin/Triamcinolone Cream 15 Gm Tube) 1 appl TOPICAL BID [facility]; Protocol Last Admin: 09/16/21 08:15 Dose: 1 appl Documented by: Trazodone HCl (Trazodone Hcl 50 Mg Tablet) 50 mg PO BEDTIME PRN PRN Reason: Insomnia Last Admin: 09/13/21 00:08 Dose: 50 mg Documented by: Trazodone HCl (Trazodone Hcl 100 Mg Tablet) 100 mg PO BEDTIME [facility] Last Admin: 09/15/21 20:39 Dose: 100 mg Documented by: Trazodone HCl (Trazodone Hcl 50 Mg Tablet) 50 mg PO BEDTIME PRN PRN Reason: Insomnia Last Admin: 09/07/21 02:51 Dose: 50 mg Documented by: Allergies Allergies Allergy/AdvReac Type Severity Reaction Status Date / Time house dust Allergy Intermediate watery eyes Verified 08/20/21 11:33 adhesive Allergy Unknown Unknown Verified 08/20/21 12:09 fenofibrate Allergy Unknown Unknown Verified 08/20/21 12:05 Sulfa (Sulfonamide Allergy Unknown unknown Verified 08/20/21 11:33 Antibiotics) tomato Allergy Unknown Unknown Verified 08/20/21 12:07 Yeast Allergy Unknown Unknown Verified 08/20/21 12:08 zolpidem [From Ambien] Allergy Unknown Unknown Verified 08/20/21 12:06 lactose AdvReac Unknown Unknown Verified 08/20/21 12:07 Assessment & Plan Assessment & Plan (1) Schizoaffective disorder, bipolar type: Status: Acute Code(s): F25.0 - Schizoaffective disorder, bipolar type (2) COVID-19: Status: Resolved Code(s): U07.1 - COVID-19 (3) PAF (paroxysmal atrial fibrillation): Status: Acute Code(s): I48.0 - Paroxysmal atrial fibrillation Assessment and Plan: the patient is a 65-year-old male with a long history of schizoaffective disorder bipolar type who was initially admitted for exacerbation of psychosis and not responding to Clozaril and lithium. He was initially admitted into this unit on August 20 but later he was diagnosed of COVID and transfer to the medical floor. After being medically cleared he was transferred into this unit for continuation of treatment. Plan 1. Continue lithium as prescribed. 2. Keep Clozaril 50 mg p.o. b.i.d. and 150 mg p.o. q.h.s.. 3. Continue other medications. 4. Cogentin was restarted due to tremors 5. Discontinue Atarax p.r.n. and at lorazepam as p.r.n.. 6. Discontinue one-to-one I spent minutes with the patient and/or on the patient floor today, greater than?50% of which was spent counseling/coordinating care. Reason for contiued inpatient stay Substantial Risk for: inability to function, rapid decompensation and med/psych decompensation
[2021-09-16 18:00] VITALS: BP 128/60; PULSE 73; RESP 16; TEMP 36.9; O2SAT 96
[2021-09-16] MEDS: traZODone HCL 100 MG TABLET PO (20:02)
[2021-09-16] MEDS: Lithium Carbonate 300 MG TABLET 450 MG PO (20:02)
[2021-09-16] MEDS: cloZAPine 100 MG TABLET 150 MG PO (20:03)
[2021-09-16] MEDS: traZODone HCL 50 MG TABLET PO (22:57)
[2021-09-17 06:00] VITALS: BP 126/72; PULSE 67; RESP 16; TEMP 36.6; O2SAT 97
[2021-09-17] MEDS: Levothyroxine Sodium 175 MCG TABLET PO (06:24)
[2021-09-17] MEDS: Lithium Carbonate 300 MG CAPSULE PO (08:34)
[2021-09-17] MEDS: carvediloL 12.5 MG TABLET PO ×2 (08:34→21:58)
[2021-09-17] MEDS: Apixaban 5 MG TABLET PO ×2 (08:34→21:56)
[2021-09-17] MEDS: cloZAPine 25 MG TABLET 50 MG PO ×2 (08:35→13:25)
[2021-09-17] MEDS: Benztropine Mesylate 0.5 MG TABLET 1 MG PO ×2 (08:35→21:57)
[2021-09-17] MEDS: Artificial Tears 15 ML DROPS 2 DROP EYE-BOTH ×2 (08:36→13:26)
[2021-09-17] MEDS: Nystatin/Triamcinolone Cream 15 GM TUBE 1 APPL TOPICAL ×2 (08:36→22:15)
--- NOTE | 2021-09-17 14:54 | P.PNPSI_ITS ---
Subjective Subjective Date of Service: 09/17/21 Reason For Visit: Psychosis Subjective Notes: Conditional Voluntary Interim History: the nursing staff reported the patient slept most of the morning of yesterday. He did not attend any groups and he was slightly more visible in the afternoon. On interview, the patient denies new symptoms he speaks very fast and non- sensical times but there is no overt agitation. Mental Status Exam Mental Status Exam Patient Appearance: Disheveled and Unkempt Patient Orientation: Person Level of Consciousness: Disoriented and Restless Patient Behavior: Guarded and Suspicious Mood Description: Anxious and Nervous Affect Description: Labile Patient Cognition Impaired: Yes Ability to Follow Directions: Good Speech Pattern: Impoverished, Difficulty Finding Words, Monotone and Pressured Hallucinations: None Delusions: Not Present Thought Process: Illogical and Evasive Thought Content: positive for [place] and positive for [place] Judgement: Poor Diagnostics Vital Signs (24Hr): Vital Signs - 24 hr 09/16/21 18:00 09/17/21 06:00 Temperature 98.4 F 97.8 F Pulse Rate 73 67 Respiratory Rate 16 16 Blood Pressure 128/60 126/72 Pulse Oximetry 96 97 BMI result Body Mass Index 34.1 Labs Results: 09/15/21 08:31 09/15/21 08:31 Imaging Radiology Impressions: ITS Impressions Head CT 09/10/21 12:02 IMPRESSION: No acute intracranial findings. Mild premature changes maxillary sinuses. Medications Medications Current Medications Acetaminophen (Acetaminophen 325 Mg Tablet) 650 mg PO Q6H PRN PRN Reason: Headache/Pain Mild Scale (1-3) Al Hydroxide/Mg Hydroxide (Magnesium Hydrox/Alum Hydrox 30 Ml Oral.Susp) 30 ml PO Q6H PRN PRN Reason: Heartburn/Nausea Apixaban (Apixaban 5 Mg Tablet) 5 mg PO BID [facility] Last Admin: 09/17/21 08:34 Dose: 5 mg Documented by: Artificial Tears (Artificial Tears 15 Ml Drops) 2 drop EYE-BOTH QID [facility] Last Admin: 09/17/21 13:26 Dose: 2 drop Documented by: Benztropine Mesylate (Benztropine Mesylate 0.5 Mg Tablet) 1 mg PO BID [facility] Last Admin: 09/17/21 08:35 Dose: 1 mg Documented by: Carvedilol (Carvedilol 12.5 Mg Tablet) 12.5 mg PO BID [facility]; Protocol Last Admin: 09/17/21 08:34 Dose: 12.5 mg Documented by: Clozapine (Clozapine 25 Mg Tablet) 50 mg PO DAILY [facility] Last Admin: 09/17/21 08:35 Dose: 50 mg Documented by: Clozapine (Clozapine 100 Mg Tablet) 150 mg PO BEDTIME [facility] Last Admin: 09/16/21 20:03 Dose: 150 mg Documented by: Clozapine (Clozapine 25 Mg Tablet) 50 mg PO DAILY@1330 [facility] Last Admin: 09/17/21 13:25 Dose: 50 mg Documented by: Haloperidol (Haloperidol 5 Mg Tablet) 5 mg PO TID PRN PRN Reason: Psychosis Last Admin: 09/14/21 17:56 Dose: 5 mg Documented by: Levothyroxine Sodium (Levothyroxine Sodium 175 Mcg Tablet) 175 mcg PO DAILY@0600 [facility] Last Admin: 09/17/21 06:24 Dose: 175 mcg Documented by: [place] Carbonate ([place] Carbonate 300 Mg Tablet) 450 mg PO BEDTIME [facility] Last Admin: 09/16/21 20:02 Dose: 450 mg Documented by: [place] Carbonate ([place] Carbonate 300 Mg Capsule) 300 mg PO DAILY [facility] Last Admin: 09/17/21 08:34 Dose: 300 mg Documented by: Magnesium Hydroxide (Milk Of Magnesia 30 Ml Oral.Susp) 30 ml PO DAILY PRN PRN Reason: Constipation Nystatin/Triamcinolone Acetonide (Nystatin/Triamcinolone Cream 15 Gm Tube) 1 appl TOPICAL BID [facility]; Protocol Last Admin: 09/17/21 08:36 Dose: 1 appl Documented by: Trazodone HCl (Trazodone Hcl 50 Mg Tablet) 50 mg PO BEDTIME PRN PRN Reason: Insomnia Last Admin: 09/16/21 22:57 Dose: 50 mg Documented by: Trazodone HCl (Trazodone Hcl 100 Mg Tablet) 100 mg PO BEDTIME [facility] Last Admin: 09/16/21 20:02 Dose: 100 mg Documented by: Trazodone HCl (Trazodone Hcl 50 Mg Tablet) 50 mg PO BEDTIME PRN PRN Reason: Insomnia Last Admin: 09/07/21 02:51 Dose: 50 mg Documented by: Allergies Allergies Allergy/AdvReac Type Severity Reaction Status Date / Time house dust Allergy Intermediate watery eyes Verified 08/20/21 11:33 adhesive Allergy Unknown Unknown Verified 08/20/21 12:09 fenofibrate Allergy Unknown Unknown Verified 08/20/21 12:05 Sulfa (Sulfonamide Allergy Unknown unknown Verified 08/20/21 11:33 Antibiotics) tomato Allergy Unknown Unknown Verified 08/20/21 12:07 Yeast Allergy Unknown Unknown Verified 08/20/21 12:08 zolpidem [From Ambien] Allergy Unknown Unknown Verified 08/20/21 12:06 lactose AdvReac Unknown Unknown Verified 08/20/21 12:07 Assessment & Plan Assessment & Plan (1) Schizoaffective disorder, bipolar type: Status: Acute Code(s): F25.0 - Schizoaffective disorder, bipolar type (2) COVID-19: Status: Resolved Code(s): U07.1 - COVID-19 (3) PAF (paroxysmal atrial fibrillation): Status: Acute Code(s): I48.0 - Paroxysmal atrial fibrillation Assessment and Plan: the patient is a 65-year-old male with a long history of schizoaffective disorder bipolar type who was initially admitted for exacerbation of psychosis and not responding to Clozaril and lithium. He was initially admitted into this unit on August 20 but later he was diagnosed of COVID and transfer to the medical floor. After being medically cleared he was transferred into this unit for continuation of treatment. Plan 1. Continue lithium as prescribed. 2. Keep Clozaril 50 mg p.o. b.i.d. and 150 mg p.o. q.h.s.. 3. Continue other medications. 4. Cogentin was restarted due to tremors 5. Discontinue Atarax p.r.n. and at lorazepam as p.r.n.. 6. Discontinue one-to-one I spent minutes with the patient and/or on the patient floor today, greater than?50% of which was spent counseling/coordinating care. Reason for contiued inpatient stay Substantial Risk for: inability to function, rapid decompensation and med/psych decompensation
[2021-09-17 16:10] VITALS: BP 138/71; PULSE 81; RESP 18; TEMP 36.7; O2SAT 97
--- NOTE | 2021-09-17 17:04 | PC.NURSE ---
At 1605 patient was found on his back on the floor in the day room. He was alert but unable to tell us how he came to be on the floor. The assumption is an unwitnessed fall from the lounge chair he had previously been seated on and which he was found next to. Vital signs were stable. Patient denied physical complaint. No visible injury noted. He was unable to follow prompts to complete neuro checks. This is consistent with his presentation prior to fall. Dr Marquis and Katherin Arredondo ( Nursing Candy [employer]ator) informed. Patient was placed on close observation. He ambulated without difficulty back to his room after being assisted to his feet.
[2021-09-17 17:11] LABS: Clozapine (Clozaril) 389 mcg/L; Norclozapine 229 mcg/L (25-400)
[2021-09-17 18:00] VITALS: BP 138/68; PULSE 96; RESP 18; TEMP 36.4; O2SAT 96
[2021-09-17] MEDS: cloZAPine 100 MG TABLET 150 MG PO (21:52)
[2021-09-17] MEDS: traZODone HCL 100 MG TABLET PO (21:59)
--- NOTE | 2021-09-18 | ECG_ITS ---
Test Reason : ect clearence Blood Pressure : / mmHG Vent. Rate : 061 BPM Atrial Rate : 061 BPM P-R Int : 200 ms QRS Dur : 106 ms QT Int : 422 ms P-R-T Axes : 029 000 -83 degrees QTc Int : 424 ms Normal sinus rhythm ST & T wave abnormality, consider inferior ischemia ST & T wave abnormality, consider anterolateral ischemia Abnormal ECG When compared with ECG of 27-AUG-2021 20:58, Incomplete right bundle branch block is no longer Present Referred By: Martin Marquis Electronically Signed By:Nile Razo
[2021-09-18] MEDS: Levothyroxine Sodium 175 MCG TABLET PO (05:01)
[2021-09-18 08:00] VITALS: BP 129/62; PULSE 70; TEMP 36.6; O2SAT 97
[2021-09-18] MEDS: Lithium Carbonate 300 MG CAPSULE PO (08:54)
[2021-09-18] MEDS: cloZAPine 25 MG TABLET 50 MG PO ×2 (08:54→13:08)
[2021-09-18] MEDS: Benztropine Mesylate 0.5 MG TABLET 1 MG PO ×2 (08:54→20:50)
[2021-09-18] MEDS: Apixaban 5 MG TABLET PO ×2 (08:54→20:48)
[2021-09-18] MEDS: Nystatin/Triamcinolone Cream 15 GM TUBE 1 APPL TOPICAL ×2 (08:55→20:48)
[2021-09-18] MEDS: Artificial Tears 15 ML DROPS 2 DROP EYE-BOTH ×4 (08:55→20:48)
[2021-09-18] MEDS: carvediloL 12.5 MG TABLET PO ×2 (08:55→20:48)
[2021-09-18 11:07] VITALS: BMI 32.2
--- NOTE | 2021-09-18 12:55 | PC.NURSE ---
Patient was complaining about chest discomfort this morning. EKG was ordered. EKG came back with abnormality Inferior and anterolateral schemia . MD notified , will continue to monitor.
[2021-09-18 14:47] VITALS: BP 129/62; PULSE 70; O2SAT 97
--- NOTE | 2021-09-18 16:08 | P.PNPSI_ITS ---
Subjective Subjective Date of Service: 09/18/21 Reason For Visit: Psychosis Subjective Notes: Conditional Voluntary Interim History: The nursing staff reported the patient fell last afternoon, he rolled of the urea trick chair. He reminds incoherent, with rapid speech, disorganized. On interview, the patient was pleasant and cooperative he is placed on one-to- one as PT evaluation for safety. His clozapine level came back within therapeutic range Mental Status Exam Mental Status Exam Patient Appearance: Well Grooomed Patient Orientation: Person Level of Consciousness: Awake Patient Behavior: Guarded and Talkative Mood Description: Withdrawn Affect Description: Constricted Patient Cognition Impaired: Yes Ability to Follow Directions: Good Speech Pattern: Slurred Hallucinations: None Delusions: Paranoid Ideation Thought Process: Distracted Thought Content: positive for [place] and positive for [place] Judgement: Fair Diagnostics Vital Signs (24Hr): Vital Signs - 24 hr 09/17/21 16:10 09/17/21 18:00 09/18/21 08:00 Temperature 98.1 F 97.5 F 97.9 F Pulse Rate 81 96 70 Respiratory Rate 18 18 Blood Pressure 138/71 138/68 129/62 Pulse Oximetry 97 96 97 09/18/21 14:47 Temperature Pulse Rate 70 Respiratory Rate Blood Pressure 129/62 Pulse Oximetry 97 BMI result Body Mass Index 32.2 Labs Results: 09/15/21 08:31 09/15/21 08:31 Labs: Laboratory Results - last 48 hr 09/12/21 06:53 Clozapine 389 Norclozapine 229 Imaging Radiology Impressions: ITS Impressions Head CT 09/10/21 12:02 IMPRESSION: No acute intracranial findings. Mild premature changes maxillary sinuses. Head CT 09/17/21 18:05 IMPRESSION: 1. No evidence of acute intracranial hemorrhage or edematous territorial infarction. 2. Mild chronic microangiopathy. Medications Medications Current Medications Acetaminophen (Acetaminophen 325 Mg Tablet) 650 mg PO Q6H PRN PRN Reason: Headache/Pain Mild Scale (1-3) Al Hydroxide/Mg Hydroxide (Magnesium Hydrox/Alum Hydrox 30 Ml Oral.Susp) 30 ml PO Q6H PRN PRN Reason: Heartburn/Nausea Apixaban (Apixaban 5 Mg Tablet) 5 mg PO BID [facility] Last Admin: 09/18/21 08:54 Dose: 5 mg Documented by: Artificial Tears (Artificial Tears 15 Ml Drops) 2 drop EYE-BOTH QID [facility] Last Admin: 09/18/21 13:09 Dose: 2 drop Documented by: Benztropine Mesylate (Benztropine Mesylate 0.5 Mg Tablet) 1 mg PO BID [facility] Last Admin: 09/18/21 08:54 Dose: 1 mg Documented by: Carvedilol (Carvedilol 12.5 Mg Tablet) 12.5 mg PO BID [facility]; Protocol Last Admin: 09/18/21 08:55 Dose: 12.5 mg Documented by: Clozapine (Clozapine 25 Mg Tablet) 50 mg PO DAILY [facility] Last Admin: 09/18/21 08:54 Dose: 50 mg Documented by: Clozapine (Clozapine 100 Mg Tablet) 150 mg PO BEDTIME [facility] Last Admin: 09/17/21 21:52 Dose: 150 mg Documented by: Clozapine (Clozapine 25 Mg Tablet) 50 mg PO DAILY@1330 [facility] Last Admin: 09/18/21 13:08 Dose: 50 mg Documented by: Haloperidol (Haloperidol 5 Mg Tablet) 5 mg PO TID PRN PRN Reason: Psychosis Last Admin: 09/14/21 17:56 Dose: 5 mg Documented by: Levothyroxine Sodium (Levothyroxine Sodium 175 Mcg Tablet) 175 mcg PO DA JOAN@0600 [facility] Last Admin: 09/18/21 05:01 Dose: 175 mcg Documented by: [place] Carbonate ([place] Carbonate 300 Mg Tablet) 450 mg PO BEDTIME [facility] Last Admin: 09/18/21 09:27 Dose: Not Given Documented by: [place] Carbonate ([place] Carbonate 300 Mg Capsule) 300 mg PO DAILY [facility] Last Admin: 09/18/21 08:54 Dose: 300 mg Documented by: Magnesium Hydroxide (Milk Of Magnesia 30 Ml Oral.Susp) 30 ml PO DAILY PRN PRN Reason: Constipation Nystatin/Triamcinolone Acetonide (Nystatin/Triamcinolone Cream 15 Gm Tube) 1 appl TOPICAL BID [facility]; Protocol Last Admin: 09/18/21 08:55 Dose: 1 appl Documented by: Trazodone HCl (Trazodone Hcl 50 Mg Tablet) 50 mg PO BEDTIME PRN PRN Reason: Insomnia Last Admin: 09/16/21 22:57 Dose: 50 mg Documented by: Trazodone HCl (Trazodone Hcl 100 Mg Tablet) 100 mg PO BEDTIME [facility] Last Admin: 09/17/21 21:59 Dose: 100 mg Documented by: Trazodone HCl (Trazodone Hcl 50 Mg Tablet) 50 mg PO BEDTIME PRN PRN Reason: Insomnia Last Admin: 09/07/21 02:51 Dose: 50 mg Documented by: Allergies Allergies Allergy/AdvReac Type Severity Reaction Status Date / Time house dust Allergy Intermediate watery eyes Verified 08/20/21 11:33 adhesive Allergy Unknown Unknown Verified 08/20/21 12:09 fenofibrate Allergy Unknown Unknown Verified 08/20/21 12:05 Sulfa (Sulfonamide Allergy Unknown unknown Verified 08/20/21 11:33 Antibiotics) tomato Allergy Unknown Unknown Verified 08/20/21 12:07 Yeast Allergy Unknown Unknown Verified 08/20/21 12:08 zolpidem [From Ambien] Allergy Unknown Unknown Verified 08/20/21 12:06 lactose AdvReac Unknown Unknown Verified 08/20/21 12:07 Assessment & Plan Assessment & Plan (1) Schizoaffective disorder, bipolar type: Status: Acute Code(s): F25.0 - Schizoaffective disorder, bipolar type (2) COVID-19: Status: Resolved Code(s): U07.1 - COVID-19 (3) PAF (paroxysmal atrial fibrillation): Status: Acute Code(s): I48.0 - Paroxysmal atrial fibrillation Assessment and Plan: the patient is a 65-year-old male with a long history of schizoaffective disorder bipolar type who was initially admitted for exacerbation of psychosis and not responding to Clozaril and lithium. He was initially admitted into this unit on August 20 but later he was diagnosed of COVID and transfer to the medical floor. After being medically cleared he was transferred into this unit for continuation of treatment. Plan 1. Continue lithium as prescribed. 2. Keep Clozaril 50 mg p.o. b.i.d. and 150 mg p.o. q.h.s.. 3. Continue other medications. 4. Cogentin was restarted due to tremors 5. Discontinue Atarax p.r.n. and at lorazepam as p.r.n.. 6. Re-started one-to-one I spent minutes with the patient and/or on the patient floor today, greater than?50% of which was spent counseling/coordinating care. Reason for contiued inpatient stay Substantial Risk for: inability to function, rapid decompensation and med/psych decompensation
[2021-09-18 18:00] VITALS: BP 132/70; PULSE 69; RESP 18; TEMP 36.9; O2SAT 98
[2021-09-18] MEDS: traZODone HCL 100 MG TABLET PO (20:47)
[2021-09-18] MEDS: cloZAPine 100 MG TABLET 150 MG PO (20:47)
[2021-09-18] MEDS: Lithium Carbonate 300 MG TABLET 450 MG PO (20:47)
[2021-09-19] MEDS: Levothyroxine Sodium 175 MCG TABLET PO (06:18)
[2021-09-19] MEDS: Lithium Carbonate 300 MG CAPSULE PO (08:21)
[2021-09-19] MEDS: Benztropine Mesylate 0.5 MG TABLET 1 MG PO ×2 (08:21→20:06)
[2021-09-19] MEDS: Apixaban 5 MG TABLET PO ×2 (08:21→20:06)
[2021-09-19] MEDS: cloZAPine 25 MG TABLET 50 MG PO ×2 (08:21→15:04)
[2021-09-19] MEDS: carvediloL 12.5 MG TABLET PO ×2 (08:21→20:06)
[2021-09-19] MEDS: Nystatin/Triamcinolone Cream 15 GM TUBE 1 APPL TOPICAL ×2 (11:47→20:09)
[2021-09-19 11:50] VITALS: BP 130/63; PULSE 65; RESP 14; TEMP 36.7; O2SAT 96
--- NOTE | 2021-09-19 12:22 | HO.PSYCHPN ---
Subjective Subjective Date of Service: 09/19/21 Reason For Visit: Psychosis Subjective Notes: Conditional Voluntary Interim History: the nursing staff reported the patient has been visible in the unit, confused at times but pleasant. Last night he slept 7 hours. According to PT he should be on one-to-one 0 point Force. On interview, the patient was pleasant and very cooperative he denies new symptoms but later on with more complex questions he start mumbling with flight of ideas. Mental Status Exam Mental Status Exam Patient Appearance: Disheveled and Unkempt Patient Orientation: Person Level of Consciousness: Awake Patient Behavior: Cooperative Mood Description: Cheerful and Anxious Affect Description: Labile Patient Cognition Impaired: Yes Ability to Follow Directions: Good Speech Pattern: Rambling Delusions: Paranoid Ideation Thought Process: Illogical Thought Content: positive for [place] and positive for Poverty of Content Judgement: Poor Diagnostics Vital Signs (24Hr): Vital Signs - 24 hr 09/18/21 14:47 09/18/21 18:00 09/19/21 11:50 Temperature 98.4 F 98.1 F Pulse Rate 70 69 65 Respiratory Rate 18 14 Blood Pressure 129/62 132/70 130/63 Pulse Oximetry 97 98 96 BMI result Body Mass Index 32.2 Labs Results: 09/15/21 08:31 09/15/21 08:31 Labs: Laboratory Results - last 48 hr 09/12/21 06:53 Clozapine 389 Norclozapine 229 Imaging Radiology Impressions: ITS Impressions Head CT 09/10/21 12:02 IMPRESSION: No acute intracranial findings. Mild premature changes maxillary sinuses. Head CT 09/17/21 18:05 IMPRESSION: 1. No evidence of acute intracranial hemorrhage or edematous territorial infarction. 2. Mild chronic microangiopathy. Medications Medications Current Medications Acetaminophen (Acetaminophen 325 Mg Tablet) 650 mg PO Q6H PRN PRN Reason: Headache/Pain Mild Scale (1-3) Al Hydroxide/Mg Hydroxide (Magnesium Hydrox/Alum Hydrox 30 Ml Oral.Susp) 30 ml PO Q6H PRN PRN Reason: Heartburn/Nausea Apixaban (Apixaban 5 Mg Tablet) 5 mg PO BID [facility] Last Admin: 09/19/21 08:21 Dose: 5 mg Documented by: Artificial Tears (Artificial Tears 15 Ml Drops) 2 drop EYE-BOTH QID [facility] Last Admin: 09/19/21 11:43 Dose: Not Given Documented by: Benztropine Mesylate (Benztropine Mesylate 0.5 Mg Tablet) 1 mg PO BID [facility] Last Admin: 09/19/21 08:21 Dose: 1 mg Documented by: Carvedilol (Carvedilol 12.5 Mg Tablet) 12.5 mg PO BID [facility]; Protocol Last Admin: 09/19/21 08:21 Dose: 12.5 mg Documented by: Clozapine (Clozapine 25 Mg Tablet) 50 mg PO DAILY [facility] Last Admin: 09/19/21 08:21 Dose: 50 mg Documented by: Clozapine (Clozapine 100 Mg Tablet) 150 mg PO BEDTIME [facility] Last Admin: 09/18/21 20:47 Dose: 150 mg Documented by: Clozapine (Clozapine 25 Mg Tablet) 50 mg PO DAILY@1330 [facility] Last Admin: 09/18/21 13:08 Dose: 50 mg Documented by: Haloperidol (Haloperidol 5 Mg Tablet) 5 mg PO TID PRN PRN Reason: Psychosis Last Admin: 09/14/21 17:56 Dose: 5 mg Documented by: Levothyroxine Sodium (Levothyroxine Sodium 175 Mcg Tablet) 175 mcg PO DAILY@0600 [facility] Last Admin: 09/19/21 06:18 Dose: 175 mcg Documented by: [place] Carbonate ([place] Carbonate 300 Mg Tablet) 450 mg PO BEDTIME [facility] Last Admin: 09/18/21 20:47 Dose: 450 mg Documented by: [place] Carbonate ([place] Carbonate 300 Mg Capsule) 300 mg PO DAILY [facility] Last Admin: 09/19/21 08:21 Dose: 300 mg Documented by: Magnesium Hydroxide (Milk Of Magnesia 30 Ml Oral.Susp) 30 ml PO DAILY PRN PRN Reason: Constipation Nystatin/Triamcinolone Acetonide (Nystatin/Triamcinolone Cream 15 Gm Tube) 1 appl TOPICAL BID [facility]; Protocol Last Admin: 09/19/21 11:47 Dose: 1 appl Documented by: Trazodone HCl (Trazodone Hcl 50 Mg Tablet) 50 mg PO BEDTIME PRN PRN Reason: Insomnia Last Admin: 09/16/21 22:57 Dose: 50 mg Documented by: Trazodone HCl (Trazodone Hcl 100 Mg Tablet) 100 mg PO BEDTIME [facility] Last Admin: 09/18/21 20:47 Dose: 100 mg Documented by: Trazodone HCl (Trazodone Hcl 50 Mg Tablet) 50 mg PO BEDTIME PRN PRN Reason: Insomnia Last Admin: 09/07/21 02:51 Dose: 50 mg Documented by: Allergies Allergies Allergy/AdvReac Type Severity Reaction Status Date / Time house dust Allergy Intermediate watery eyes Verified 08/20/21 11:33 adhesive Allergy Unknown Unknown Verified 08/20/21 12:09 fenofibrate Allergy Unknown Unknown Verified 08/20/21 12:05 Sulfa (Sulfonamide Allergy Unknown unknown Verified 08/20/21 11:33 Antibiotics) tomato Allergy Unknown Unknown Verified 08/20/21 12:07 Yeast Allergy Unknown Unknown Verified 08/20/21 12:08 zolpidem [From Ambien] Allergy Unknown Unknown Verified 08/20/21 12:06 lactose AdvReac Unknown Unknown Verified 08/20/21 12:07 Assessment & Plan Assessment & Plan (1) Schizoaffective disorder, bipolar type: Status: Acute Code(s): F25.0 - Schizoaffective disorder, bipolar type (2) COVID-19: Status: Resolved Code(s): U07.1 - COVID-19 (3) PAF (paroxysmal atrial fibrillation): Status: Acute Code(s): I48.0 - Paroxysmal atrial fibrillation Assessment and Plan: the patient is a 65-year-old male with a long history of schizoaffective disorder bipolar type who was initially admitted for exacerbation of psychosis and not responding to Clozaril and lithium. He was initially admitted into this unit on August 20 but later he was diagnosed of COVID and transfer to the medical floor. After being medically cleared he was transferred into this unit for continuation of treatment. Plan 1. Continue lithium as prescribed. 2. Keep Clozaril 50 mg p.o. b.i.d. and 150 mg p.o. q.h.s.. 3. Continue other medications. 4. Cogentin was restarted due to tremors 5. Discontinue Atarax p.r.n. and at lorazepam as p.r.n.. 6. Re-started one-to-one I spent minutes with the patient and/or on the patient floor today, greater than?50% of which was spent counseling/coordinating care. Reason for contiued inpatient stay Substantial Risk for: inability to function, rapid decompensation and med/psych decompensation
[2021-09-19] MEDS: Artificial Tears 15 ML DROPS 2 DROP EYE-BOTH ×3 (15:04→20:09)
[2021-09-19 16:41] VITALS: BP 143/87; PULSE 99; TEMP 36.6
--- NOTE | 2021-09-19 17:43 | PM.EVENT ---
Event Note Date of Service: 09/19/21 Event Note: Patient consulted for ECT clearance 65-year-old gentleman with past medical history of bipolar disorder, paroxysmal atrial fibrillation, hypothyroidism, Patient recently discharged from hospitalist service to on 09/04 after being treated for COVID-19 infection At present patient is unable to provide meaningful history, his speech is incomprehensible, times mumbling able to understand few words only, patient denies chest pain, complaining of shortness of breath but unable to describe it further with hand gestures likely trying to explain cough or phlegm production. EKG reviewed showed normal sinus rhythm, new T-wave inversion in inferio lateral leads, changed from most recent EKG of August 27 Lab work from 09/15 is stable with normal renal function blood sugar 180s On examination patient awake, alert Head normocephalic Neck is supple Lungs clear to auscultation Heart regular rate rhythm Extremity no edema In regard to ECT clearance, will recommend cardiology eval due to abnormal EKG .
[2021-09-19] MEDS: Lithium Carbonate 300 MG TABLET 450 MG PO (20:04)
[2021-09-19] MEDS: traZODone HCL 100 MG TABLET PO (20:05)
[2021-09-19] MEDS: cloZAPine 100 MG TABLET 150 MG PO (20:06)
[2021-09-20] MEDS: Levothyroxine Sodium 175 MCG TABLET PO (06:32)
[2021-09-20 08:00] VITALS: BP 133/77; PULSE 91; RESP 14; TEMP 36.7; O2SAT 93
[2021-09-20] MEDS: carvediloL 12.5 MG TABLET PO ×2 (09:59→22:06)
[2021-09-20] MEDS: Apixaban 5 MG TABLET PO ×2 (09:59→22:05)
[2021-09-20] MEDS: Benztropine Mesylate 0.5 MG TABLET 1 MG PO ×2 (09:59→22:06)
[2021-09-20] MEDS: Lithium Carbonate 300 MG CAPSULE PO (10:00)
[2021-09-20] MEDS: cloZAPine 25 MG TABLET 50 MG PO ×2 (10:00→14:40)
--- NOTE | 2021-09-20 14:38 | P.PNPSI_ITS ---
Subjective Subjective Date of Service: 09/20/21 Reason For Visit: Psychosis Medical Problems Affecting Mental Status: No Interim History: As per nursing no management issues. Feel patient is managing mobility de [place] reasonably well and could be close observation rather than one-to-one observation. Is adherent with care. Slept okay. 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 Seen in day area. Reports today that he feels good. Is illogical in thought form and reports this is a nice facility, then talks about flap checks with maple syrup in blueberry. Reports he has been here for 1 day. Date of admission 09/04/2021. Medication Compliance: Yes Side effects from medications: No Attending Groups: No Review of Systems Acute medical concerns: No Medical Review of Systems: unchanged Review of Systems Review of Systems Unremarkable Mental Status Exam Mental Status Exam Narrative: pleasant and engaged during interview. In day area. Her fair self- care. Allows care to be delivered. Is illogical in thought form and speech. Denies depression. No evidence of SI HI aggression or agitation. Does appear internally preoccupied. Insight judgment limited Diagnostics Vital Signs (24Hr): Vital Signs - 24 hr 09/19/21 16:41 09/20/21 08:00 Temperature 97.8 F 98.0 F Pulse Rate 99 91 Respiratory Rate 14 Blood Pressure 143/87 H 133/77 Pulse Oximetry 93 BMI result Body Mass Index 32.2 Labs Results: 09/15/21 08:31 09/15/21 08:31 Imaging Radiology Impressions: ITS Impressions Head CT 09/10/21 12:02 IMPRESSION: No acute intracranial findings. Mild premature changes maxillary sinuses. Head CT 09/17/21 18:05 IMPRESSION: 1. No evidence of acute intracranial hemorrhage or edematous territorial infarction. 2. Mild chronic microangiopathy. Medications Medications Current Medications Acetaminophen (Acetaminophen 325 Mg Tablet) 650 mg PO Q6H PRN PRN Reason: Headache/Pain Mild Scale (1-3) Al Hydroxide/Mg Hydroxide (Magnesium Hydrox/Alum Hydrox 30 Ml Oral.Susp) 30 ml PO Q6H PRN PRN Reason: Heartburn/Nausea Apixaban (Apixaban 5 Mg Tablet) 5 mg PO BID [facility] Last Admin: 09/20/21 09:59 Dose: 5 mg Documented by: Artificial Tears (Artificial Tears 15 Ml Drops) 2 drop EYE-BOTH QID [facility] Last Admin: 09/20/21 11:58 Dose: Not Given Documented by: Benztropine Mesylate (Benztropine Mesylate 0.5 Mg Tablet) 1 mg PO BID [facility] Last Admin: 09/20/21 09:59 Dose: 1 mg Documented by: Carvedilol (Carvedilol 12.5 Mg Tablet) 12.5 mg PO BID [facility]; Protocol Last Admin: 09/20/21 09:59 Dose: 12.5 mg Documented by: Clozapine (Clozapine 25 Mg Tablet) 50 mg PO DAILY [facility] Last Admin: 09/20/21 10:00 Dose: 50 mg Documented by: Clozapine (Clozapine 100 Mg Tablet) 150 mg PO BEDTIME [facility] Last Admin: 09/19/21 20:06 Dose: 150 mg Documented by: Clozapine (Clozapine 25 Mg Tablet) 50 mg PO DAILY@1330 [facility] Last Admin: 09/19/21 15:04 Dose: 50 mg Documented by: Haloperidol (Haloperidol 5 Mg Tablet) 5 mg PO TID PRN PRN Reason: Psychosis Last Admin: 09/14/21 17:56 Dose: 5 mg Documented by: Levothyroxine Sodium (Levothyroxine Sodium 175 Mcg Tablet) 175 mcg PO DAILY@0600 [facility] Last Admin: 09/20/21 06:32 Dose: 175 mcg Documented by: [place] Carbonate ([place] Carbonate 300 Mg Tablet) 450 mg PO BEDTIME [facility] Last Admin: 09/19/21 20:04 Dose: 450 mg Documented by: [place] Carbonate ([place] Carbonate 300 Mg Capsule) 300 mg PO DAILY [facility] Last Admin: 09/20/21 10:00 Dose: 300 mg Documented by: Magnesium Hydroxide (Milk Of Magnesia 30 Ml Oral.Susp) 30 ml PO DAILY PRN PRN Reason: Constipation Nystatin/Triamcinolone Acetonide (Nystatin/Triamcinolone Cream 15 Gm Tube) 1 appl TOPICAL BID [facility]; Protocol Last Admin: 09/20/21 11:59 Dose: Not Given Documented by: Trazodone HCl (Trazodone Hcl 50 Mg Tablet) 50 mg PO BEDTIME PRN PRN Reason: Insomnia Last Admin: 09/16/21 22:57 Dose: 50 mg Documented by: Trazodone HCl (Trazodone Hcl 100 Mg Tablet) 100 mg PO BEDTIME [facility] Last Admin: 09/19/21 20:05 Dose: 100 mg Documented by: Trazodone HCl (Trazodone Hcl 50 Mg Tablet) 50 mg PO BEDTIME PRN PRN Reason: Insomnia Last Admin: 09/07/21 02:51 Dose: 50 mg Documented by: Allergies Allergies Allergy/AdvReac Type Severity Reaction Status Date / Time house dust Allergy Intermediate watery eyes Verified 08/20/21 11:33 adhesive Allergy Unknown Unknown Verified 08/20/21 12:09 fenofibrate Allergy Unknown Unknown Verified 08/20/21 12:05 Sulfa (Sulfonamide Allergy Unknown unknown Verified 08/20/21 11:33 Antibiotics) tomato Allergy Unknown Unknown Verified 08/20/21 12:07 Yeast Allergy Unknown Unknown Verified 08/20/21 12:08 zolpidem [From Ambien] Allergy Unknown Unknown Verified 08/20/21 12:06 lactose AdvReac Unknown Unknown Verified 08/20/21 12:07 Assessment & Plan Assessment & Plan (1) Schizoaffective disorder, bipolar type: Status: Acute Code(s): F25.0 - Schizoaffective disorder, bipolar type (2) COVID-19: Status: Resolved Code(s): U07.1 - COVID-19 (3) PAF (paroxysmal atrial fibrillation): Status: Acute Code(s): I48.0 - Paroxysmal atrial fibrillation Assessment and Plan: the patient is a 65-year-old male with a long history of schizoaffective disorder bipolar type who was initially admitted for exacerbation of psychosis and not responding to Clozaril and lithium. He was initially admitted into this unit on August 20 but later he was diagnosed of COVID and transfer to the medical floor. After being medically cleared he was transferred into this unit for continuation of treatment. Plan 1. Continue lithium as prescribed. 2. Keep Clozaril 50 mg p.o. b.i.d. and 150 mg p.o. q.h.s.. 3. Continue other medications. 4. Cogentin was restarted due to tremors 5. Discontinue Atarax p.r.n. and at lorazepam as p.r.n.. 6. Close observation for mobility- nursing staff feel this is appropriate and comfortable regarding same I spent minutes with the patient and/or on the patient floor today, greater than?50% of which was spent counseling/coordinating care. Reason for contiued inpatient stay Substantial Risk for: inability to function
[2021-09-20] MEDS: Artificial Tears 15 ML DROPS 2 DROP EYE-BOTH ×3 (14:40→22:03)
[2021-09-20 18:00] VITALS: BP 134/65; PULSE 74; RESP 18; TEMP 37.4; O2SAT 97
[2021-09-20] MEDS: Lithium Carbonate 300 MG TABLET 450 MG PO (22:03)
[2021-09-20] MEDS: cloZAPine 100 MG TABLET 150 MG PO (22:05)
[2021-09-20] MEDS: traZODone HCL 100 MG TABLET PO (22:06)
[2021-09-21] MEDS: Levothyroxine Sodium 175 MCG TABLET PO (05:57)
[2021-09-21 08:00] VITALS: BP 124/75; PULSE 77; TEMP 36.6; O2SAT 97
[2021-09-21] MEDS: Lithium Carbonate 300 MG CAPSULE PO (08:57)
[2021-09-21] MEDS: carvediloL 12.5 MG TABLET PO ×2 (08:57→21:39)
[2021-09-21] MEDS: Benztropine Mesylate 0.5 MG TABLET 1 MG PO ×2 (08:57→21:36)
[2021-09-21] MEDS: cloZAPine 25 MG TABLET 50 MG PO ×2 (08:57→13:14)
[2021-09-21] MEDS: Artificial Tears 15 ML DROPS 2 DROP EYE-BOTH ×3 (08:58→21:36)
[2021-09-21] MEDS: Nystatin/Triamcinolone Cream 15 GM TUBE 1 APPL TOPICAL ×2 (08:58→21:45)
[2021-09-21] MEDS: Apixaban 5 MG TABLET PO ×2 (08:58→21:36)
--- NOTE | 2021-09-21 10:43 | P.PNPSI_ITS ---
Subjective Subjective Date of Service: 09/21/21 Reason For Visit: Psychosis Subjective Notes: Conditional Voluntary Interim History: Seen in sensory room. Eating breakfast. Pleasant. Jovial. No mobility issues as per nursing, since being placed on 5 minute checks. Remains adherent with care. Slept okay. Reports today that he feels good. Is illogical in thought form. Reports that he feels very good. 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 Otherwise reports that he is being well cared for and looking forward to discharge. Was unable to articulate will be an ideal treatment plan for him upon discharge. Medication Compliance: Yes Side effects from medications: No Attending Groups: Intermittent Review of Systems Acute medical concerns: No Review of Systems Review of Systems Unremarkable Mental Status Exam Mental Status Exam Narrative: pleasant and engaged during interview. In sensory room. Has fair self-care. Eating breakfast. Is illogical in thought form and speech. Denies depression. No evidence of SI HI aggression or agitation. Does appear in ternally preoccupied. Insight judgment limited Diagnostics Vital Signs (24Hr): Vital Signs - 24 hr 09/20/21 18:00 09/21/21 08:00 Temperature 99.3 F 97.8 F Pulse Rate 74 77 Respiratory Rate 18 Blood Pressure 134/65 124/75 Pulse Oximetry 97 97 BMI result Body Mass Index 32.2 Labs Results: 09/15/21 08:31 09/15/21 08:31 Imaging Radiology Impressions: ITS Impressions Head CT 09/10/21 12:02 IMPRESSION: No acute intracranial findings. Mild premature changes maxillary sinuses. Head CT 09/17/21 18:05 IMPRESSION: 1. No evidence of acute intracranial hemorrhage or edematous territorial infarction. 2. Mild chronic microangiopathy. Medications Medications Current Medications Acetaminophen (Acetaminophen 325 Mg Tablet) 650 mg PO Q6H PRN PRN Reason: Headache/Pain Mild Scale (1-3) Al Hydroxide/Mg Hydroxide (Magnesium Hydrox/Alum Hydrox 30 Ml Oral.Susp) 30 ml PO Q6H PRN PRN Reason: Heartburn/Nausea Apixaban (Apixaban 5 Mg Tablet) 5 mg PO BID [facility] Last Admin: 09/21/21 08:58 Dose: 5 mg Documented by: Artificial Tears (Artificial Tears 15 Ml Drops) 2 drop EYE-BOTH QID [facility] Last Admin: 09/21/21 08:58 Dose: 2 drop Documented by: Benztropine Mesylate (Benztropine Mesylate 0.5 Mg Tablet) 1 mg PO BID [facility] Last Admin: 09/21/21 08:57 Dose: 1 mg Documented by: Carvedilol (Carvedilol 12.5 Mg Tablet) 12.5 mg PO BID [facility]; Protocol Last Admin: 09/21/21 08:57 Dose: 12.5 mg Documented by: Clozapine (Clozapine 25 Mg Tablet) 50 mg PO DAILY [facility] Last Admin: 09/21/21 08:57 Dose: 50 mg Documented by: Clozapine (Clozapine 100 Mg Tablet) 150 mg PO BEDTIME [facility] Last Admin: 09/20/21 22:05 Dose: 150 mg Documented by: Clozapine (Clozapine 25 Mg Tablet) 50 mg PO DAILY@1330 [facility] Last Admin: 09/20/21 14:40 Dose: 50 mg Documented by: Haloperidol (Haloperidol 5 Mg Tablet) 5 mg PO TID PRN PRN Reason: Psychosis Last Admin: 09/14/21 17:56 Dose: 5 mg Documented by: Levothyroxine Sodium (Levothyroxine Sodium 175 Mcg Tablet) 175 mcg PO DAILY@0600 [facility] Last Admin: 09/21/21 05:57 Dose: 175 mcg Documented by: [place] Carbonate ([place] Carbonate 300 Mg Tablet) 450 mg PO BEDTIME [facility] Last Admin: 09/20/21 22:03 Dose: 450 mg Documented by: [place] Carbonate ([place] Carbonate 300 Mg Capsule) 300 mg PO DAILY [facility] Last Admin: 09/21/21 08:57 Dose: 300 mg Documented by: Magnesium Hydroxide (Milk Of Magnesia 30 Ml Oral.Susp) 30 ml PO DAILY PRN PRN Reason: Constipation Nystatin/Triamcinolone Acetonide (Nystatin/Triamcinolone Cream 15 Gm Tube) 1 appl TOPICAL BID [facility]; Protocol Last Admin: 09/21/21 08:58 Dose: 1 appl Documented by: Trazodone HCl (Trazodone Hcl 50 Mg Tablet) 50 mg PO BEDTIME PRN PRN Reason: Insomnia Last Admin: 09/16/21 22:57 Dose: 50 mg Documented by: Trazodone HCl (Trazodone Hcl 100 Mg Tablet) 100 mg PO BEDTIME [facility] Last Admin: 09/20/21 22:06 Dose: 100 mg Documented by: Trazodone HCl (Trazodone Hcl 50 Mg Tablet) 50 mg PO BEDTIME PRN PRN Reason: Insomnia Last Admin: 09/07/21 02:51 Dose: 50 mg Documented by: Allergies Allergies Allergy/AdvReac Type Severity Reaction Status Date / Time house dust Allergy Intermediate watery eyes Verified 08/20/21 11:33 adhesive Allergy Unknown Unknown Verified 08/20/21 12:09 fenofibrate Allergy Unknown Unknown Verified 08/20/21 12:05 Sulfa (Sulfonamide Allergy Unknown unknown Verified 08/20/21 11:33 Antibiotics) tomato Allergy Unknown Unknown Verified 08/20/21 12:07 Yeast Allergy Unknown Unknown Verified 08/20/21 12:08 zolpidem [From Ambien] Allergy Unknown Unknown Verified 08/20/21 12:06 lactose AdvReac Unknown Unknown Verified 08/20/21 12:07 Assessment & Plan Assessment & Plan (1) Schizoaffective disorder, bipolar type: Status: Acute Code(s): F25.0 - Schizoaffective disorder, bipolar type (2) COVID-19: Status: Resolved Code(s): U07.1 - COVID-19 (3) PAF (paroxysmal atrial fibrillation): Status: Acute Code(s): I48.0 - Paroxysmal atrial fibrillation Assessment and Plan: the patient is a 65-year-old male with a long history of schizoaffective disorder bipolar type who was initially admitted for exacerbation of psychosis and not responding to Clozaril and lithium. He was initially admitted into this unit on August 20 but later he was diagnosed of COVID and transfer to the medical floor. After being medically cleared he was transferred into this unit for continuation of treatment. Plan 1. Continue lithium as prescribed. 2. Keep Clozaril 50 mg p.o. b.i.d. and 150 mg p.o. q.h.s.. 3. Continue other medications. 4. Cogentin was restarted due to tremors 5. Discontinue Atarax p.r.n. and at lorazepam as p.r.n.. 6. Q 5 min checks for mobility since 09/20 and doing well on same I spent minutes with the patient and/or on the patient floor today, greater than?50% of which was spent counseling/coordinating care. Reason for contiued inpatient stay Substantial Risk for: inability to function
[2021-09-21] MEDS: traZODone HCL 100 MG TABLET PO (21:39)
[2021-09-21] MEDS: cloZAPine 100 MG TABLET 150 MG PO (21:39)
[2021-09-21] MEDS: Lithium Carbonate 300 MG TABLET 450 MG PO (21:41)
[2021-09-21 22:10] VITALS: BP 148/64; PULSE 75; RESP 18; TEMP 36.6; O2SAT 97
[2021-09-22] MEDS: Levothyroxine Sodium 175 MCG TABLET PO (05:50)
[2021-09-22 07:30] VITALS: BP 134/77; PULSE 66; RESP 16; TEMP 36.9; O2SAT 96
[2021-09-22] MEDS: Benztropine Mesylate 0.5 MG TABLET 1 MG PO ×2 (08:27→20:54)
[2021-09-22] MEDS: Lithium Carbonate 300 MG CAPSULE PO (08:27)
[2021-09-22] MEDS: carvediloL 12.5 MG TABLET PO ×2 (08:28→20:55)
[2021-09-22] MEDS: cloZAPine 25 MG TABLET 50 MG PO ×2 (08:28→13:35)
[2021-09-22] MEDS: Apixaban 5 MG TABLET PO ×2 (08:29→20:55)
[2021-09-22] MEDS: Artificial Tears 15 ML DROPS 2 DROP EYE-BOTH ×2 (09:08→20:57)
--- NOTE | 2021-09-22 14:48 | P.PNPSI_ITS ---
Subjective Subjective Date of Service: 09/22/21 Reason For Visit: Psychosis Subjective Notes: Conditional Voluntary Interim History: The nursing staff reported that the patient has been pleasant and cooperative, attending to a few groups but self dialogue in at times. The staff reported that last night he had a poor night and he slept only a few hours. On interview the patient was pleasant and cooperative he was confused at times and mumbling but he complained of poor sleep and he agreed to start a low dose of Ambien. Mental Status Exam Mental Status Exam Patient Appearance: Disheveled Patient Orientation: Person Level of Consciousness: Awake Patient Behavior: Cooperative Mood Description: Constricted Affect Description: Labile Patient Cognition Impaired: Yes Ability to Follow Directions: Good Speech Pattern: Impoverished Delusions: Not Present Thought Content: positive for Poverty of Content Judgement: Poor Diagnostics Vital Signs (24Hr): Vital Signs - 24 hr 09/21/21 22:10 09/22/21 07:30 Temperature 98 F 98.5 F Pulse Rate 75 66 Respiratory Rate 18 16 Blood Pressure 148/64 H 134/77 Pulse Oximetry 97 96 BMI result Body Mass Index 32.2 Labs Results: 09/15/21 08:31 09/15/21 08:31 Imaging Radiology Impressions: ITS Impressions Head CT 09/10/21 12:02 IMPRESSION: No acute intracranial findings. Mild premature changes maxillary sinuses. Head CT 09/17/21 18:05 IMPRESSION: 1. No evidence of acute intracranial hemorrhage or edematous territorial infarction. 2. Mild chronic microangiopathy. Medications Medications Current Medications Acetaminophen (Acetaminophen 325 Mg Tablet) 650 mg PO Q6H PRN PRN Reason: Headache/Pain Mild Scale (1-3) Al Hydroxide/Mg Hydroxide (Magnesium Hydrox/Alum Hydrox 30 Ml Oral.Susp) 30 ml PO Q6H PRN PRN Reason: Heartburn/Nausea Apixaban (Apixaban 5 Mg Tablet) 5 mg PO BID [facility] Last Admin: 09/22/21 08:29 Dose: 5 mg Documented by: Artificial Tears (Artificial Tears 15 Ml Drops) 2 drop EYE-BOTH QID [facility] Last Admin: 09/22/21 09:08 Dose: 2 drop Documented by: Benztropine Mesylate (Benztropine Mesylate 0.5 Mg Tablet) 1 mg PO BID [facility] Last Admin: 09/22/21 08:27 Dose: 1 mg Documented by: Carvedilol (Carvedilol 12.5 Mg Tablet) 12.5 mg PO BID [facility]; Protocol Last Admin: 09/22/21 08:28 Dose: 12.5 mg Documented by: Clozapine (Clozapine 25 Mg Tablet) 50 mg PO DAILY [facility] Last Admin: 09/22/21 08:28 Dose: 50 mg Documented by: Clozapine (Clozapine 100 Mg Tablet) 150 mg PO BEDTIME [facility] Last Admin: 09/21/21 21:39 Dose: 150 mg Documented by: Clozapine (Clozapine 25 Mg Tablet) 50 mg PO DAILY@1330 [facility] Last Admin: 09/22/21 13:35 Dose: 50 mg Documented by: Haloperidol (Haloperidol 5 Mg Tablet) 5 mg PO TID PRN PRN Reason: Psychosis Last Admin: 09/14/21 17:56 Dose: 5 mg Documented by: Levothyroxine Sodium (Levothyroxine Sodium 175 Mcg Tablet) 175 mcg PO DAILY@0600 [facility] Last Admin: 09/22/21 05:50 Dose: 175 mcg Documented by: [place] Carbonate ([place] Carbonate 300 Mg Tablet) 450 mg PO BEDTIME [facility] Last Admin: 09/21/21 21:41 Dose: 450 mg Documented by: [place] Carbonate ([place] Carbonate 300 Mg Capsule) 300 mg PO DAILY [facility] Last Admin: 09/22/21 08:27 Dose: 300 mg Documented by: Magnesium Hydroxide (Milk Of Magnesia 30 Ml Oral.Susp) 30 ml PO DAILY PRN PRN Reason: Constipation Nystatin/Triamcinolone Acetonide (Nystatin/Triamcinolone Cream 15 Gm Tube) 1 appl TOPICAL BID [facility]; Protocol Last Admin: 09/22/21 09:09 Dose: Not Given Documented by: Trazodone HCl (Trazodone Hcl 50 Mg Tablet) 50 mg PO BEDTIME PRN PRN Reason: Insomnia Last Admin: 09/16/21 22:57 Dose: 50 mg Documented by: Trazodone HCl (Trazodone Hcl 100 Mg Tablet) 100 mg PO BEDTIME [facility] Last Admin: 09/21/21 21:39 Dose: 100 mg Documented by: Trazodone HCl (Trazodone Hcl 50 Mg Tablet) 50 mg PO BEDTIME PRN PRN Reason: Insomnia Last Admin: 09/07/21 02:51 Dose: 50 mg Documented by: Allergies Allergies Allergy/AdvReac Type Severity Reaction Status Date / Time house dust Allergy Intermediate watery eyes Verified 08/20/21 11:33 adhesive Allergy Unknown Unknown Verified 08/20/21 12:09 fenofibrate Allergy Unknown Unknown Verified 08/20/21 12:05 Sulfa (Sulfonamide Allergy Unknown unknown Verified 08/20/21 11:33 Antibiotics) tomato Allergy Unknown Unknown Verified 08/20/21 12:07 Yeast Allergy Unknown Unknown Verified 08/20/21 12:08 zolpidem [From Ambien] Allergy Unknown Unknown Verified 08/20/21 12:06 lactose AdvReac Unknown Unknown Verified 08/20/21 12:07 Assessment & Plan Assessment & Plan (1) Schizoaffective disorder, bipolar type: Status: Acute Code(s): F25.0 - Schizoaffective disorder, bipolar type (2) COVID-19: Status: Resolved Code(s): U07.1 - COVID-19 (3) PAF (paroxysmal atrial fibrillation): Status: Acute Code(s): I48.0 - Paroxysmal atrial fibrillation Assessment and Plan: the patient is a 65-year-old male with a long history of schizoaffective disorder bipolar type who was initially admitted for exacerbation of psychosis and not responding to Clozaril and lithium. He was initially admitted into this unit on August 20 but later he was diagnosed of COVID and transfer to the medical floor. After being medically cleared he was transferred into this unit for continuation of treatment. Plan 1. Continue lithium as prescribed. 2. Keep Clozaril 50 mg p.o. b.i.d. and 150 mg p.o. q.h.s.. 3. Continue other medications. 4. Cogentin was restarted due to tremors 5. Discontinue Atarax p.r.n. and at lorazepam as p.r.n.. 6. Q 5 min checks for mobility since 09/20 and doing well on same I spent minutes with the patient and/or on the patient floor today, greater than?50% of which was spent counseling/coordinating care. Reason for contiued inpatient stay Substantial Risk for: inability to function, rapid decompensation and med/psych decompensation
[2021-09-22 18:00] VITALS: BP 145/81; PULSE 73; TEMP 37.4; O2SAT 96
[2021-09-22] MEDS: Lithium Carbonate 300 MG TABLET 450 MG PO (20:54)
[2021-09-22] MEDS: cloZAPine 100 MG TABLET 150 MG PO (20:55)
[2021-09-22] MEDS: traZODone HCL 100 MG TABLET PO (20:55)
[2021-09-22] MEDS: Nystatin/Triamcinolone Cream 15 GM TUBE 1 APPL TOPICAL (20:57)
[2021-09-23 06:00] VITALS: BP 144/74; PULSE 68; RESP 16; TEMP 37; O2SAT 96
[2021-09-23] MEDS: Levothyroxine Sodium 175 MCG TABLET PO (06:06)
[2021-09-23 07:40] LABS: Neut%MD 64.6 %; Neutrophils Absolute Auto 4.9 x10*3/uL (2.0-8.3); WBCANC 7.5 X10*3/uL
[2021-09-23] MEDS: Benztropine Mesylate 0.5 MG TABLET 1 MG PO ×2 (08:12→20:14)
[2021-09-23] MEDS: Lithium Carbonate 300 MG CAPSULE PO (08:12)
[2021-09-23] MEDS: Apixaban 5 MG TABLET PO ×2 (08:12→20:13)
[2021-09-23] MEDS: cloZAPine 25 MG TABLET 50 MG PO ×2 (08:12→12:38)
[2021-09-23] MEDS: carvediloL 12.5 MG TABLET PO ×2 (08:12→20:14)
[2021-09-23] MEDS: Artificial Tears 15 ML DROPS 2 DROP EYE-BOTH ×2 (09:22→12:38)
[2021-09-23] MEDS: Nystatin/Triamcinolone Cream 15 GM TUBE 1 APPL TOPICAL (09:23)
--- NOTE | 2021-09-23 16:45 | HO.PSYCHPN ---
Subjective Subjective Date of Service: 09/23/21 Reason For Visit: Psychosis Subjective Notes: Conditional Voluntary Interim History: The nursing staff reported that he slept well, he was pleasant and cooperative. He was seen feeding himself, compliant with treatment. On interview, he was childish, carrying toys and talking to himself but easily redirecatable. Mental Status Exam Mental Status Exam Patient Appearance: Disheveled and Unkempt Patient Orientation: Person Level of Consciousness: Awake Patient Behavior: Talkative and Posturing Mood Description: Nervous Affect Description: Labile Patient Cognition Impaired: Yes Ability to Follow Directions: Good Speech Pattern: Appropriate and Garbled Hallucinations: None Delusions: Paranoid Ideation Thought Content: positive for Poverty of Content and positive for Disorganized Judgement: Fair Diagnostics Vital Signs (24Hr): Vital Signs - 24 hr 09/22/21 18:00 09/23/21 06:00 Temperature 99.3 F 98.6 F Pulse Rate 73 68 Respiratory Rate 16 Blood Pressure 145/81 H 144/74 H Pulse Oximetry 96 96 BMI result Body Mass Index 32.2 Labs Results: 09/15/21 08:31 09/15/21 08:31 Labs: Laboratory Results - last 48 hr 09/23/21 07:15 Absolute Neuts (auto) 4.9 Imaging Radiology Impressions: ITS Impressions Head CT 09/10/21 12:02 IMPRESSION: No acute intracranial findings. Mild premature changes maxillary sinuses. Head CT 09/17/21 18:05 IMPRESSION: 1. No evidence of acute intracranial hemorrhage or edematous territorial infarction. 2. Mild chronic microangiopathy. Medications Medications Current Medications Acetaminophen (Acetaminophen 325 Mg Tablet) 650 mg PO Q6H PRN PRN Reason: Headache/Pain Mild Scale (1-3) Al Hydroxide/Mg Hydroxide (Magnesium Hydrox/Alum Hydrox 30 Ml Oral.Susp) 30 ml PO Q6H PRN PRN Reason: Heartburn/Nausea Apixaban (Apixaban 5 Mg Tablet) 5 mg PO BID [facility] Last Admin: 09/23/21 08:12 Dose: 5 mg Documented by: Artificial Tears (Artificial Tears 15 Ml Drops) 2 drop EYE-BOTH QID [facility] Last Admin: 09/23/21 12:38 Dose: 2 drop Documented by: Benztropine Mesylate (Benztropine Mesylate 0.5 Mg Tablet) 1 mg PO BID [facility] Last Admin: 09/23/21 08:12 Dose: 1 mg Documented by: Carvedilol (Carvedilol 12.5 Mg Tablet) 12.5 mg PO BID [facility]; Protocol Last Admin: 09/23/21 08:12 Dose: 12.5 mg Documented by: Clozapine (Clozapine 25 Mg Tablet) 50 mg PO DAILY [facility] Last Admin: 09/23/21 08:12 Dose: 50 mg Documented by: Clozapine (Clozapine 100 Mg Tablet) 150 mg PO BEDTIME [facility] Last Admin: 09/22/21 20:55 Dose: 150 mg Documented by: Clozapine (Clozapine 25 Mg Tablet) 50 mg PO DAILY@1330 [facility] Last Admin: 09/23/21 12:38 Dose: 50 mg Documented by: Haloperidol (Haloperidol 5 Mg Tablet) 5 mg PO TID PRN PRN Reason: Psychosis Last Admin: 09/14/21 17:56 Dose: 5 mg Documented by: Levothyroxine Sodium (Levothyroxine Sodium 175 Mcg Tablet) 175 mcg PO DAILY@0600 [facility] Last Admin: 09/23/21 06:06 Dose: 175 mcg Documented by: [place] Carbonate ([place] Carbonate 300 Mg Tablet) 450 mg PO BEDTIME [facility] Last Admin: 09/22/21 20:54 Dose: 450 mg Documented by: [place] Carbonate ([place] Carbonate 300 Mg Capsule) 300 mg PO DAILY [facility] Last Admin: 09/23/21 08:12 Dose: 300 mg Documented by: Magnesium Hydroxide (Milk Of Magnesia 30 Ml Oral.Susp) 30 ml PO DAILY PRN PRN Reason: Constipation Nystatin/Triamcinolone Acetonide (Nystatin/Triamcinolone Cream 15 Gm Tube) 1 appl TOPICAL BID [facility]; Protocol Last Admin: 09/23/21 09:23 Dose: 1 appl Documented by: Trazodone HCl (Trazodone Hcl 100 Mg Tablet) 100 mg PO BEDTIME [facility] Last Admin: 09/22/21 20:55 Dose: 100 mg Documented by: Trazodone HCl (Trazodone Hcl 100 Mg Tablet) 100 mg PO BEDTIME PRN PRN Reason: Insomnia Allergies Allergies Allergy/AdvReac Type Severity Reaction Status Date / Time house dust Allergy Intermediate watery eyes Verified 08/20/21 11:33 adhesive Allergy Unknown Unknown Verified 08/20/21 12:09 fenofibrate Allergy Unknown Unknown Verified 08/20/21 12:05 Sulfa (Sulfonamide Allergy Unknown unknown Verified 08/20/21 11:33 Antibiotics) tomato Allergy Unknown Unknown Verified 08/20/21 12:07 Yeast Allergy Unknown Unknown Verified 08/20/21 12:08 zolpidem [From Ambien] Allergy Unknown Unknown Verified 08/20/21 12:06 lactose AdvReac Unknown Unknown Verified 08/20/21 12:07 Assessment & Plan Assessment & Plan (1) Schizoaffective disorder, bipolar type: Status: Acute Code(s): F25.0 - Schizoaffective disorder, bipolar type (2) COVID-19: Status: Resolved Code(s): U07.1 - COVID-19 (3) PAF (paroxysmal atrial fibrillation): Status: Acute Code(s): I48.0 - Paroxysmal atrial fibrillation Assessment and Plan: the patient is a 65-year-old male with a long history of schizoaffective disorder bipolar type who was initially admitted for exacerbation of psychosis and not responding to Clozaril and lithium. He was initially admitted into this unit on August 20 but later he was diagnosed of COVID and transfer to the medical floor. After being medically cleared he was transferred into this unit for continuation of treatment. Plan 1. Continue lithium as prescribed. 2. Keep Clozaril 50 mg p.o. b.i.d. and 150 mg p.o. q.h.s.. 3. Continue other medications. 4. Cogentin was restarted due to tremors 5. Discontinue Atarax p.r.n. and at lorazepam as p.r.n.. 6. Q 5 min checks for mobility since 09/20 and doing well on same I spent minutes with the patient and/or on the patient floor today, greater than?50% of which was spent counseling/coordinating care. Reason for contiued inpatient stay Substantial Risk for: inability to function, rapid decompensation and med/psych decompensation
[2021-09-23 20:00] VITALS: BP 135/67; PULSE 65; RESP 18; TEMP 37.1; O2SAT 97
[2021-09-23] MEDS: traZODone HCL 100 MG TABLET PO (20:13)
[2021-09-23] MEDS: cloZAPine 100 MG TABLET 150 MG PO (20:14)
[2021-09-23] MEDS: Lithium Carbonate 300 MG TABLET 450 MG PO (20:14)
[2021-09-24] MEDS: Levothyroxine Sodium 175 MCG TABLET PO (06:26)
[2021-09-24 08:00] VITALS: BP 120/62; PULSE 78; RESP 16; TEMP 37.3; O2SAT 97
[2021-09-24] MEDS: cloZAPine 25 MG TABLET 50 MG PO ×2 (08:42→15:10)
[2021-09-24] MEDS: Lithium Carbonate 300 MG CAPSULE PO (08:42)
[2021-09-24] MEDS: Benztropine Mesylate 0.5 MG TABLET 1 MG PO ×2 (08:43→20:20)
[2021-09-24] MEDS: Artificial Tears 15 ML DROPS 2 DROP EYE-BOTH ×4 (08:43→20:28)
[2021-09-24] MEDS: Nystatin/Triamcinolone Cream 15 GM TUBE 1 APPL TOPICAL (08:43)
[2021-09-24] MEDS: carvediloL 12.5 MG TABLET PO ×2 (08:43→20:20)
[2021-09-24] MEDS: Apixaban 5 MG TABLET PO ×2 (08:43→20:23)
[2021-09-24 13:36] LABS: COVID-19 Test Negative (Negative)
--- NOTE | 2021-09-24 14:39 | P.PNPSI_ITS ---
Subjective Subjective Date of Service: 09/24/21 Reason For Visit: Psychosis Subjective Notes: Conditional Voluntary Interim History: The nursing staff reports that the patient is pleasant and cooperative, confused at times and childish, caring toys around in the unit but easily redirectable. On interview, the patient denies new symptoms and he was happy to be discharged tomorrow Mental Status Exam Mental Status Exam Patient Appearance: Well Grooomed Patient Orientation: Person Level of Consciousness: Awake Patient Behavior: Cooperative Mood Description: Depressed Affect Description: Constricted Patient Cognition Impaired: Yes Ability to Follow Directions: Good Speech Pattern: Appropriate Hallucinations: None Delusions: Not Present Thought Process: Illogical, Distracted and Evasive Thought Content: positive for Perseveration, positive for Poverty of Content and positive for Loose Associations Judgement: Fair Diagnostics Vital Signs (24Hr): Vital Signs - 24 hr 09/23/21 20:00 09/24/21 08:00 Temperature 98.7 F 99.2 F Pulse Rate 65 78 Respiratory Rate 18 16 Blood Pressure 135/67 120/62 Pulse Oximetry 97 97 BMI result [place] 4 Body Mass Index [place] 4 32.2 [place] 4 [place] 4 Labs Results: 09/15/21 08:31 09/15/21 08:31 Labs: Laboratory Results - last 48 hr 09/23/21 09/24/21 07:15 13:10 Absolute Neuts (auto) 4.9 COVID-19 ([facility]) Negative COVID-19 Clin Com See Note Imaging Radiology Impressions: ITS Impressions Head CT 09/10/21 12:02 IMPRESSION: No acute intracranial findings. Mild premature changes maxillary sinuses. Head CT 09/17/21 18:05 IMPRESSION: 1. No evidence of acute intracranial hemorrhage or edematous territorial infarction. 2. Mild chronic microangiopathy. Medications Medications Current Medications Acetaminophen (Acetaminophen 325 Mg Tablet) 650 mg PO Q6H PRN PRN Reason: Headache/Pain Mild Scale (1-3) Al Hydroxide/Mg Hydroxide (Magnesium Hydrox/Alum Hydrox 30 Ml Oral.Susp) 30 ml PO Q6H PRN PRN Reason: Heartburn/Nausea Apixaban (Apixaban 5 Mg Tablet) 5 mg PO BID [facility] Last Admin: 09/24/21 08:43 Dose: 5 mg Documented by: Artificial Tears (Artificial Tears 15 Ml Drops) 2 drop EYE-BOTH QID [facility] Last Admin: 09/24/21 08:43 Dose: 2 drop Documented by: Benztropine Mesylate (Benztropine Mesylate 0.5 Mg Tablet) 1 mg PO BID [facility] Last Admin: 09/24/21 08:43 Dose: 1 mg Documented by: Carvedilol (Carvedilol 12.5 Mg Tablet) 12.5 mg PO BID [facility]; Protocol Last Admin: 09/24/21 08:43 Dose: 12.5 mg Documented by: Clozapine (Clozapine 25 Mg Tablet) 50 mg PO DAILY [facility] Last Admin: 09/24/21 08:42 Dose: 50 mg Documented by: Clozapine (Clozapine 100 Mg Tablet) 150 mg PO BEDTIME [facility] Last Admin: 09/23/21 20:14 Dose: 150 mg Documented by: Clozapine (Clozapine 25 Mg Tablet) 50 mg PO DAILY@1330 [facility] Last Admin: 09/23/21 12:38 Dose: 50 mg Documented by: Haloperidol (Haloperidol 5 Mg Tablet) 5 mg PO TID PRN PRN Reason: Psychosis Last Admin: 09/14/21 17:56 Dose: 5 mg Documented by: Levothyroxine Sodium (Levothyroxine Sodium 175 Mcg Tablet) 175 mcg PO DAILY@0600 [facility] Last Admin: 09/24/21 06:26 Dose: 175 mcg Documented by: [place] Carbonate ([place] Carbonate 300 Mg Tablet) 450 mg PO BEDTIME [facility] Last Admin: 09/23/21 20:14 Dose: 450 mg Documented by: [place] Carbonate ([place] Carbonate 300 Mg Capsule) 300 mg PO DAILY [facility] Last Admin: 09/24/21 08:42 Dose: 300 mg Documented by: Magnesium Hydroxide (Milk Of Magnesia 30 Ml Oral.Susp) 30 ml PO DAILY PRN PRN Reason: Constipation Nystatin/Triamcinolone Acetonide (Nystatin/Triamcinolone Cream 15 Gm Tube) 1 appl TOPICAL BID [facility]; Protocol Last Admin: 09/24/21 08:43 Dose: 1 appl Documented by: Trazodone HCl (Trazodone Hcl 100 Mg Tablet) 100 mg PO BEDTIME [facility] Last Admin: 09/23/21 20:13 Dose: 100 mg Documented by: Trazodone HCl (Trazodone Hcl 100 Mg Tablet) 100 mg PO BEDTIME PRN PRN Reason: Insomnia Allergies Allergies Allergy/AdvReac Type Severity Reaction Status Date / Time house dust Allergy Intermediate watery eyes Verified 08/20/21 11:33 adhesive Allergy Unknown Unknown Verified 08/20/21 12:09 fenofibrate Allergy Unknown Unknown Verified 08/20/21 12:05 Sulfa (Sulfonamide Allergy Unknown unknown Verified 08/20/21 11:33 Antibiotics) tomato Allergy Unknown Unknown Verified 08/20/21 12:07 Yeast Allergy Unknown Unknown Verified 08/20/21 12:08 zolpidem [From Allergy Unknown Unknown Verified 08/20/21 12:06 Ambien] lactose AdvReac Unknown Unknown Verified 08/20/21 12:07 Assessment & Plan Assessment & Plan (1) Schizoaffective disorder, bipolar type: Status: Acute Code(s): F25.0 - Schizoaffective disorder, bipolar type (2) COVID-19: Status: Resolved Code(s): U07.1 - COVID-19 (3) PAF (paroxysmal atrial fibrillation): Status: Acute Code(s): I48.0 - Paroxysmal atrial fibrillation Plan the patient is a 65-year-old male with a long history of schizoaffective disorder bipolar type who was initially admitted for exacerbation of psychosis and not responding to Clozaril and lithium. He was initially admitted into this unit on August 20 but later he was diagnosed of COVID and transfer to the medical floor. After being medically cleared he was transferred into this unit for continuation of treatment. Plan 1. Continue lithium as prescribed. 2. Keep Clozaril 50 mg p.o. b.i.d. and 150 mg p.o. q.h.s.. 3. Continue other medications. 4. Discharged tomorrow I spent minutes with the patient and/or on the patient floor today, greater than?50% of which was spent counseling/coordinating care. Reason for contiued inpatient stay Substantial Risk for: stable for discharge and med/psych decompensation
[2021-09-24] MEDS: Lithium Carbonate 300 MG TABLET 450 MG PO (20:21)
[2021-09-24] MEDS: traZODone HCL 100 MG TABLET PO (20:21)
[2021-09-24] MEDS: cloZAPine 100 MG TABLET 150 MG PO (20:22)
[2021-09-24 20:29] VITALS: BP 142/69; PULSE 71; RESP 16
[2021-09-24 22:37] VITALS: BP 142/69; PULSE 71; RESP 71; TEMP 37.5; O2SAT 97
[2021-09-25] MEDS: traZODone HCL 100 MG TABLET PO (02:25)
[2021-09-25] MEDS: Levothyroxine Sodium 175 MCG TABLET PO (07:09)
[2021-09-25 09:26] VITALS: BP 139/78; PULSE 80; RESP 14; TEMP 36.9; O2SAT 94
[2021-09-25] MEDS: Lithium Carbonate 300 MG CAPSULE PO (09:27)
[2021-09-25] MEDS: Apixaban 5 MG TABLET PO (09:27)
[2021-09-25] MEDS: carvediloL 12.5 MG TABLET PO (09:27)
[2021-09-25] MEDS: Benztropine Mesylate 0.5 MG TABLET 1 MG PO (09:28)
[2021-09-25] MEDS: cloZAPine 25 MG TABLET 50 MG PO (09:28)
[2021-09-25 09:53] VITALS: BMI 32.8
[2021-09-25] MEDS: Artificial Tears 15 ML DROPS 2 DROP EYE-BOTH (09:55)
--- NOTE | 2021-09-25 09:56 | PM.PSYDC ---
DS: Providers Provider Date of Service: 09/25/21 Date of admission: 09/04/21 13:41 Date of discharge: 09/25/21 Primary care physician: Unknown Physician Consults: 09/17/21 10:58 Consult to Hospitalist Routine Consulting Provider: Hospitalist Reason For Exam: Recent fall 09/18/21 10:58 Consult to Hospitalist Routine Consulting Provider: Hospitalist Reason For Exam: ECT clearance Attending physician on discharge: Martin Marquis DS: Diagnosis Discharge Diagnosis (1) Schizoaffective disorder, bipolar type: Status: Acute (2) COVID-19: Status: Resolved (3) PAF (paroxysmal atrial fibrillation): Status: Acute DS: Medications Discharge Medications Home Medications: Home Medications Medication Instructions Recorded Confirmed apixaban 5 mg tablet (Eliquis) 1 tab PO BID 08/25/21 09/04/21 carvedilol 12.5 mg tablet 1 tab PO BID 08/25/21 09/04/21 clozapine 100 mg tablet 150 mg PO BEDTIME 08/25/21 09/04/21 clozapine 50 mg tablet 50 mg PO DAILY 08/25/21 09/04/21 levothyroxine 175 mcg tablet 1 tab PO DAILY 08/25/21 09/04/21 lithium carbonate 300 mg tablet 450 mg PO BID 08/25/21 09/04/21 lorazepam 1 mg tablet 1 mg PO Q6H PRN 08/25/21 09/04/21 trazodone 100 mg tablet 1 tab PO BEDTIME 08/25/21 09/04/21 trazodone 50 mg tablet 50 mg PO BEDTIME PRN 08/25/21 09/04/21 Mental Status Exam Mental Status Exam Patient Appearance: Well Grooomed and Appropriate Patient Orientation: Person and Situation Level of Consciousness: Awake Patient Behavior: Appropriate and Cooperative Mood Description: Happy and Cheerful Affect Description: Constricted Patient Cognition Impaired: Yes Ability to Follow Directions: Good Speech Pattern: Clear Delusions: Not Present Thought Process: Linear Thought Content: positive for Poverty of Content and positive for Loose Associations Judgement: Fair Data Data Completed and Pending Completed studies during hospitalization [Text1]: 09/23/21 09/24/21 07:15 13:10 Absolute Neuts (auto) 4.9 COVID-19 ([facility]) Negative COVID-19 Clin Com See Note Imaging Diagnostic Imaging Impressions Head CT 09/10/21 12:02 IMPRESSION: No acute intracranial findings. Mild premature changes maxillary sinuses. Head CT 09/17/21 18:05 IMPRESSION: 1. No evidence of acute intracranial hemorrhage or edematous territorial infarction. 2. Mild chronic microangiopathy. DS: Summary Hospital Course Hospital Course: The [facility] due to exacerbation of psychosis and mood lability. He eventually contracted COVID and he was sent to the medical [facility] for treatment and he came back. Please see HPI of the admission note for more details. The patient was started on Clozaril planning was titrated slowly up to 50 mg p.o. b.i.d. and 150 mg p.o. q.h.s. also, his lithium was changed to a therapeutic level. The patient's mood and agitation improved slowly and eventually he was able to participate in groups. He was pleasantly confused but easily redirectable. Since the patient was at baseline discharge planning was discussed. The patient was then rolled to the Clozaril rems program and he should have blood work at least once a week as per Clozaril protocol Time spent discussing smoking cessation with patient: 3 to 10 minutes Status at Discharge Functional status at discharge: independent ambulation Overall status at discharge: patient is back to baseline Time Spent with Patient Time attestation: Total time spent providing and/or coordinating discharge services: Time spent: Less than 30 minutes Discharge Plan Discharge Patient Disposition: Xfer [facility] Discharge Diagnosis: Schizoaffective Disorder Bipolar type Referrals: [facility] [Physician] - 1 Week Discharge Medications: New polyvinyl alcohol [Artificial Tears (polyvin alc)] 1.4 % Drops 2 drp ophthalmic (eye) QID Qty: 15 0RF trazodone 100 mg Tablet 100 mg PO BEDTIME PRN (Reason: Insomnia) Qty: 30 0RF lithium carbonate 300 mg Capsule 300 mg PO DAILY Qty: 30 0RF nystatin-triamcinolone 100,000-0.1 unit/g-% Cream 1 appl topical BID Qty: 15 0RF Protocol: Apply to: Apply to: face clozapine 25 mg Tablet 50 mg PO DAILY@1330 Qty: 60 0RF Continued levothyroxine 175 mcg tablet 1 tab PO DAILY 0RF carvedilol 12.5 mg tablet 1 tab PO BID 0RF trazodone 50 mg tablet 50 mg PO BEDTIME PRN (Reason: Insomnia) 0RF clozapine 100 mg tablet 150 mg PO BEDTIME 0RF trazodone 100 mg tablet 1 tab PO BEDTIME 0RF lorazepam 1 mg Tablet 1 mg PO Q6H PRN (Reason: Anxiety) 0RF lithium carbonate 300 mg tablet 450 mg PO BID 0RF clozapine 50 mg tablet 50 mg PO DAILY 0RF Eliquis 5 mg tablet 1 tab PO BID 0RF Discharge Orders: Discharge Order (Routine); Ordered 09/04/21 Ordered By: Mando Davis Activity on Discharge: As tolerated Stand Alone Forms: Patient Portal Discharge page Care Plan Goals: Care plan goals achieved Health Concerns: Continue treatment by primary care physician. CBC with ANC weekly as per Clozaril protocol Plan of Treatment: Continue treatment by primary care physician and outpatient providers Assessment: The patient is a middle-aged male with a long history of schizoaffective disorder bipolar type, chronically situational eyes admitted for exacerbation of avery and psychosis with agitation. The patient was started on Clozaril and titrated slowly up to 250 mg p.o. daily with for improvement. At this moment the patient is at baseline ready for discharge
--- NOTE | 2021-09-25 12:46 | PC.NURSE ---
Patient alert and oriented to self only. Vague to situation, time and place. Pleasant and cooperative upon approach.Thought process is confused and disorganized. Speech is garbled and quiet at times. Aware and informed of discharge. Patient states, I'm happy to go. Patient is med compliant. Appetite excellent. Performs ADL's with assistance. Wearing brief for occasional incontinence. Patient dressed appropriately in clean clothes for discharge. No behavioral issues. Interacts with other patients and has become a favorite personality on the unit.
== END 2021-09-25 13:06 | DRG 885 ==
PROVIDERS: Psychiatry & Neurology Psychiatry; Admitting Provider Psychiatry & Neurology Psychiatry; Visit Provider Psychiatry & Neurology Psychiatry
DX: F25.0 Schizoaffective disorder, bipolar type (principal); U07.1 COVID-19; E03.9 Hypothyroidism, unspecified; I48.0 Paroxysmal atrial fibrillation; Z20.822 Contact with and (suspected) exposure to COVID-19; Z79.01 Long term (current) use of anticoagulants; Z79.890 Hormone replacement therapy; Z79.899 Other long term (current) drug therapy
CPT/HCPCS: 36415; 70450; 80048; 80061; 80159; 80178; 81003; 83036; 84443; 85025; 85048; 87635; 93005; 97161

== ENCOUNTER 2021-10-15 14:04 | Inpatient (IN) | payer MEDICARE, MEDICAID, SELFPAY ==
--- NOTE | 2021-10-15 | ECG_ITS ---
Test Reason : MEDICAL CLEARANCE Blood Pressure : / mmHG Vent. Rate : 079 BPM Atrial Rate : 079 BPM P-R Int : 210 ms QRS Dur : 108 ms QT Int : 408 ms P-R-T Axes : 056 020 042 degrees QTc Int : 467 ms Sinus rhythm with 1st degree A-V block Nonspecific ST abnormality Incomplete right bundle branch block Borderline ECG When compared with ECG of 18-SEP-2021 11:45, Incomplete right bundle branch block is now Present ST less depressed in Inferior leads Referred By: Adarsh Mosqueda Electronically Signed By:JOLENE JULIO MD
--- NOTE | ~2021-10-15 | CT_ITS ---
EXAMINATION: CT HEAD WITHOUT CONTRAST CLINICAL INFORMATION: Schizoaffective disorder, change in mental status COMPARISON: CT head 09/17/2021 TECHNIQUE: Contiguous axial imaging was performed from the skull base to vertex without intravenous administration of contrast. Coronal and sagittal reformatted images are performed at the CT scanner. [This CT examination was performed using dose optimization techniques as appropriate, variously including the following: *Automated exposure control *Adjustment of mA and/or kV according to patient size (this includes techniques or standardized protocols for targeted exams where dose is matched to indication/reason for exam; i.e. extremities or head) *Use of iterative reconstruction technique] DLP: 801 mGy-cm. FINDINGS: There is no evidence of acute intracranial hemorrhage or territorial infarction. No abnormal mass-effect or midline shift is seen. Tee to white matter differentiation is well preserved. No extra-axial fluid collections are identified. The ventricles are normal in size. There is mild hypodensity of the periventricular white matter due to chronic small vessel ischemic disease. There is no osseous abnormality. The mastoid air cells and visualized portions of the paranasal sinuses are well-aerated. CT/CT head/brain wo con IMPRESSION: No acute intracranial pathology.
[2021-10-15 14:27] VITALS: BP 131/81; BP 146/76; PULSE 70; PULSE 80; RESP 16; TEMP 36.6; O2SAT 95; O2SAT 97; BMI 31.4
--- NOTE | 2021-10-15 15:14 | ED_ITS ---
HPI - Psych General Chief Complaint: Psychiatric Symptoms Stated Complaint: PSYCH CRISIS Time Seen by Provider: 10/15/21 14:16 Source: patient Mode of arrival: EMS Limitations: altered mental status History of Present Illness HPI Narrative: 65-year-old male who was sent in from his nursing facility for aggressive b ehavior toward staff. The patient has a history of schizoaffective disorder, bipolar type with auditory and visual hallucinations. When I interviewed him he was cooperative however he is mumbling and lacks insight as to what happened to him at the nursing facility. The patient answers questions but then adds a lot of information that is not related to the question. In reviewing the patient's record the patient was admitted to the geropsych service in August of 2021, he developed COVID and was managed on the medical service until he completed his quarantine time. He was then transferred back to the psychiatric service. His discharge diagnosis at that time was schizoaffective disorder, bipolar type. Related Data Home Medications Medication Instructions Recorded Confirmed apixaban 5 mg tablet (Eliquis) 1 tab PO BID 08/25/21 10/15/21 carvedilol 12.5 mg tablet 1 tab PO BID 08/25/21 10/15/21 clozapine 50 mg tablet 50 mg PO BID@0900,1300 08/25/21 10/15/21 levothyroxine 175 mcg tablet 1 tab PO DAILY 08/25/21 10/15/21 trazodone 50 mg tablet 50 mg PO BEDTIME PRN 08/25/21 10/15/21 clozapine 25 mg tablet 25 mg PO BID@0900,1300 10/15/21 10/15/21 clozapine 50 mg tablet 150 mg PO BEDTIME 10/15/21 10/15/21 lithium carbonate 450 mg 1 tab PO BID 10/15/21 10/15/21 tablet,extended release lorazepam 0.5 mg tablet 0.5 mg PO BID PRN 10/15/21 10/15/21 trazodone 50 mg tablet 2 tab PO BEDTIME 10/15/21 10/15/21 trazodone 50 mg tablet 25 mg PO Q12H PRN 10/15/21 10/15/21 Previous Rx's Medication Instructions Recorded nystatin-triamcinolone 100,000 1 appl TOPICAL BID #15 g 09/25/21 unit/g-0.1 % topical cream polyvinyl alcohol 1.4 % eye drops 2 drp OPHTHALMIC (EYE) QID #15 ml 09/25/21 (Artificial Tears (polyvinyl alcohol)) Allergies Allergy/AdvReac Type Severity Reaction Status Date / Time house dust Allergy Intermediate watery eyes Verified 08/20/21 11:33 adhesive Allergy Unknown Unknown Verified 10/15/21 14:32 fenofibrate Allergy Unknown Unknown Verified 10/15/21 14:32 Sulfa (Sulfonamide Allergy Unknown unknown Verified 10/15/21 14:32 Antibiotics) tomato Allergy Unknown Unknown Verified 10/15/21 14:32 Yeast Allergy Unknown Unknown Verified 10/15/21 14:32 zolpidem [From Ambien] Allergy Unknown Unknown Verified 10/15/21 14:32 lactose AdvReac Unknown Unknown Verified 10/15/21 14:32 Review of Systems Review of Systems: Yes Unobtainable due to mental status PMFSH Past Medical History Medical History History of ETT Hypertension Hypothyroidism Obstructive sleep apnea PAF (paroxysmal atrial fibrillation) Schizoaffective disorder, bipolar type Surgical History H/O arthroscopic knee surgery H/O congenital atrial septal defect (ASD) repair Hx laparoscopic cholecystectomy Family History Family History Mother Breast cancer Father Coronary artery disease Brother Coronary artery disease COPD (chronic obstructive pulmonary disease) Bone cancer Colon polyps Social History Social History Household Members: None and Other Housing: Half-Way Are you a primary skin care technician to a significant other at home: No Do you presently have visiting nurse or other home services: No Patient Tobacco Use Status: Never used Tobacco e-Cigarette/Vaping Use: Never Used Second Hand Smoke Exposure: No Advance Directives: No Advance Directives Information Provided: Yes Current occupational status: disabled Sexual orientation: Straight/Heterosexual Physical Exam Vital Signs: Vital Signs: Last Vital Signs Temp 98.4 F 10/15/21 20:19 Pulse 87 10/15/21 20:19 Resp 18 10/15/21 20:19 BP 142/82 H 10/15/21 20:19 Pulse Ox 96 10/15/21 20:19 BMI result Body Mass Index 31.4 Const: Other: Awake, alert, male patient, sitting on the edge of the bed, mumbling to himself. He was pleasant and cooperative. When he answers questions he rambles on and talks about things that were not related to the question that was asked. He lacks insight as to what happened at the nursing facility. Orientation/consciousness: oriented to person HENMT: Head: Yes normal to inspection, Yes normocephalic and Yes atraumatic Ears: external ears normal General nose exam: Normal external nose present Face and sinus: Yes normal facial exam Mouth: Normal oral and palatal mucosa present Throat: Yes posterior oropharynx normal Eyes: General: appearance normal, both eyes and all related structures Pupils: Equal, round and reactive pupils present Neck: Neck: Yes normal visual inspection, Yes no lymphadenopathy, Yes trachea midline and Yes supple Chest: Chest palpation & inspection: normal inspection of the chest and normal palpation of entire chest wall Resp: Effort & Inspection: normal respiratory effort and able to speak in complete sentences Auscultation: clear to auscultation bilaterally Cardio: Rate: regular rate Rhythm: regular rhythm Heart sounds: S1 normal heart sound present, S2 normal heart sound present and no murmurs GI: Inspection: Yes normal to inspection Palpation (GI): Soft to palpation, nontender and no guarding Auscultation: normal bowel sounds : General: Yes no CVA tenderness Back/Spine/Pelvis: Back: no CVA tenderness Skin: General skin exam: no rashes or lesions noted Neuro: General: oriented to person Cranial nerves: Yes CN's II-XII intact bilaterally and Yes Equal, round and reactive pupils present Motor exam (n euro): 5/5 motor strength present throughout Extrem: General: Yes normal to inspection Psych: Appearance: grossly normal Affect: normal affect Attitude: cooperative Thought process: Flight of ideas present and Illogical thought process present Course Course Course Narrative: 65-year-old male with a history schizoaffective disorder, bipolar type who was recently here on our psychiatric service and discharged on 09/25/2021. At that time he had COVID and was having auditory and visual hallucinations. Apparently today he was aggressive to staff at a half-way facility. Patient lacks insight as to why he is here. Vital signs did reveal slight elevation is blood pressure of 146/76 otherwise was unremarkable. His exam was unremarkable as well. I did order blood work on this patient, a urinalysis and COVID testing. The patient will need to be seen by Behavioral Health to determine if he needs hospitalization or he can return to his half-way facility. 2108: The patient did become agitated and anxious and he was treated with Haldol 10 mg orally, Benadryl 50 mg orally and Ativan 2 mg orally with improvement of his symptoms. He was transferred to the Behavioral Pod as well which I think improved his agitation. Laboratory evaluation revealed mild anemia with an H&H of 12.4 and 37, this is chronic. Comprehensive metabolic panel revealed an elevated glucose of 198. Urinalysis was negative. Urine tox was negative. Acetaminophen and salicylates were below detectable limits. [place] was subtherapeutic at 0.57. Alcohol was below detectable limits. COVID-[address] scan of the brain will be obtained to rule out stroke, bleed, mass effect. 2108: Physician observation started at 2108. Patient placed in physician observation because the patient needed more time for Behavioral Health evaluation to determine if he needs psych admission. At the time observation was started the patient's vitals were stable, patient is alert and oriented , he is calm and cooperative, Neuro: nonfocal, CV RRR, Lungs clear. At the end of my shift, the patient's care was turned over to my colleague, Dr. Shabana Arevalo. [facility] - Psych Lab Data Result diagrams: 10/15/21 19:22 10/15/21 19:22 Labs: Lab Results 10/15/21 10/15/21 10/15/21 Range/Units 19:07 19:22 19:22 WBC 10.3 (4.8-10.8) X10*3/uL RBC 4.31 L (4.60-5.80) X10*6/uL Hgb 12.4 L (14.0-18.0) g/dl Hct 37.8 L (42.0-52.0) % MCV 87.7 (80.0-98.0) fL MCH 28.8 (27.0-33.0) pg MCHC 32.8 (31.0-36.0) g/dl RDW 13.3 (11.0-16.0) % Plt Count 321 (160-400) X10*3/uL MPV 9.9 (9.4-12.4) fL Immature Gran % (Auto) 0.4 (0.0-0.4) % Neut % (Auto) 71.0 (45-73) % Lymph % (Auto) 20.9 (20-40) % [place] % (Auto) 5.0 (2-11) % Eos % (Auto) 2.4 (0-4) % Baso % (Auto) 0.3 (0-2) % Lymph # (Auto) 2.2 (1.2-4.9) X10*3/uL [place] # (Auto) 0.5 (0.1-1.2) X10*3/uL Eos # (Auto) 0.3 (0.0-0.4) X10*3/uL Baso # (Auto) 0.0 (0.0-0.2) X10*3/uL Abs Immat Gran (auto) 0.04 H (0.00-0.03) X10*3/uL Absolute Neuts (auto) 7.3 (2.0-8.3) x10*3/uL Absolute Nucleated RBC 0.000 (0.0-0.012) X10*3/uL Nucleated RBC % (auto) 0.0 (0.0-0.2) /100WBC Sodium 138 (135-145) mmol/L Potassium 3.6 (3.3-5.1) mmol/L Chloride 106 (96-108) mmol/L Carbon Dioxide 24 (22-29) mmol/L Anion Gap 12 (12-20) BUN 11 (9-16) mg/dL Creatinine 1.21 (0.5-1.4) mg/dL Estim Creat Clear Calc 66.7 Estimated GFR 60 Random Glucose 198 H (60-115) mg/dL Calcium 9.8 (8.4-10.2) mg/dL Total Bilirubin 0.3 (0.0-1.0) mg/dL AST 12 (5-37) U/L ALT 21 (0-40) U/L Alkaline Phosphatase 88 D (39-117) U/L Total Protein 6.9 (6.5-8.0) g/dL Albumin 4.3 (3.5-5.0) g/dL Urine Color Urine Appearance Urine pH (5.0-8.0) Ur Specific [place] (1.005-1.025) Urine Protein (NEG-TRACE) MG/DL Urine Glucose (UA) (NEG) MG/DL Urine Ketones (NEG) MG/DL Urine Blood (NEG) Urine Nitrite (NEG) Ur Leukocyte Esterase (NEG) Salicylates < 5.0 L (15-30) mg/dL Urine Opiates Screen (Not Detect) Urine Fentanyl Screen (Not Detect) Acetaminophen < 1 (<30) mcg/mL Ur Barbiturates Screen (Not Detect) Ur Phencyclidine Scrn (Not Detect) Ur Amphetamines Screen (Not Detect) U Benzodiazepines Scrn (Not Detect) [place] (0.60-1.20) mmol/L Urine Cocaine Screen (Not Detect) U Marijuana (THC) Screen (Not Detect) Ethyl Alcohol mg/dL COVID-19 (HUNTER) Negative (Negative) COVID-19 Clin Com See Note 10/15/21 10/15/21 10/15/21 Range/Units 19:22 19:22 19:36 WBC (4.8-10.8) X10*3/uL RBC (4.60-5.80) X10*6/uL Hgb (14.0-18.0) g/dl Hct (42.0-52.0) % MCV (80.0-98.0) fL MCH (27.0-33.0) pg MCHC (31.0-36.0) g/dl RDW (11.0-16.0) % Plt Count (160-400) X10*3/uL MPV (9.4-12.4) fL Immature Gran % (Auto) (0.0-0.4) % Neut % (Auto) (45-73) % Lymph % (Auto) (20-40) % [place] % (Auto) (2-11) % Eos % (Auto) (0-4) % Baso % (Auto) (0-2) % Lymph # (Auto) (1.2-4.9) X10*3/uL [place] # (Auto) (0.1-1.2) X10*3/uL Eos # (Auto) (0.0-0.4) X10*3/uL Baso # (Auto) (0.0-0.2) X10*3/uL Abs Immat Gran (auto) (0.00-0.03) X10*3/uL Absolute Neuts (auto) (2.0-8.3) x10*3/uL Absolute Nucleated RBC (0.0-0.012) X10*3/uL Nucleated RBC % (auto) (0.0-0.2) /100WBC Sodium (135-145) mmol/L Potassium (3.3-5.1) mmol/L Chloride (96-108) mmol/L Carbon Dioxide (22-29) mmol/L Anion Gap (12-20) BUN (9-16) mg/dL Creatinine (0.5-1.4) mg/dL Estim Creat Clear Calc Estimated GFR Random Glucose (60-115) mg/dL Calcium (8.4-10.2) mg/dL Total Bilirubin (0.0-1.0) mg/dL AST (5-37) U/L ALT (0-40) U/L Alkaline Phosphatase (39-117) U/L Total Protein (6.5-8.0) g/dL Albumin (3.5-5.0) g/dL Urine Color Urine Appearance Urine pH (5.0-8.0) Ur Specific [place] (1.005-1.025) Urine Protein (NEG-TRACE) MG/DL Urine Glucose (UA) (NEG) MG/DL Urine Ketones (NEG) MG/DL Urine Blood (NEG) Urine Nitrite (NEG) Ur Leukocyte Esterase (NEG) Salicylates (15-30) mg/dL Urine Opiates Screen Not Detected (Not Detect) Urine Fentanyl Screen Not Detected (Not Detect) Acetaminophen (<30) mcg/mL Ur Barbiturates Screen Not Detected (Not Detect) Ur Phencyclidine Scrn Not Detected (Not Detect) Ur Amphetamines Screen Not Detected (Not Detect) U Benzodiazepines Scrn Not Detected (Not Detect) [place] 0.57 L (0.60-1.20) mmol/L Urine Cocaine Screen Not Detected (Not Detect) U Marijuana (THC) Screen Not Detected (Not Detect) Ethyl Alcohol < 10 mg/dL COVID-19 (HUNTER) (Negative) COVID-19 Clin Com 10/15/21 Range/Units 19:36 WBC (4.8-10.8) X10*3/uL RBC (4.60-5.80) X10*6/uL Hgb (14.0-18.0) g/dl Hct (42.0-52.0) % MCV (80.0-98.0) fL MCH (27.0-33.0) pg MCHC (31.0-36.0) g/dl RDW (11.0-16.0) % Plt Count (160-400) X10*3/uL MPV (9.4-12.4) fL Immature Gran % (Auto) (0.0-0.4) % Neut % (Auto) (45-73) % Lymph % (Auto) (20-40) % [place] % (Auto) (2-11) % Eos % (Auto) (0-4) % Baso % (Auto) (0-2) % Lymph # (Auto) (1.2-4.9) X10*3/uL [place] # (Auto) (0.1-1.2) X10*3/uL Eos # (Auto) (0.0-0.4) X10*3/uL Baso # (Auto) (0.0-0.2) X10*3/uL Abs Immat Gran (auto) (0.00-0.03) X10*3/uL Absolute Neuts (auto) (2.0-8.3) x10*3/uL Absolute Nucleated RBC (0.0-0.012) X10*3/uL Nucleated RBC % (auto) (0.0-0.2) /100WBC Sodium (135-145) mmol/L Potassium (3.3-5.1) mmol/L Chloride (96-108) mmol/L Carbon Dioxide (22-29) mmol/L Anion Gap (12-20) BUN (9-16) mg/dL Creatinine (0.5-1.4) mg/dL Estim Creat Clear Calc Estimated GFR Random Glucose (60-115) mg/dL Calcium (8.4-10.2) mg/dL Total Bilirubin (0.0-1.0) mg/dL AST (5-37) U/L ALT (0-40) U/L Alkaline Phosphatase (39-117) U/L Total Protein (6.5-8.0) g/dL Albumin (3.5-5.0) g/dL Urine Color YELLOW Urine Appearance CLEAR Urine pH 5.5 (5.0-8.0) Ur Specific [place] 1.020 (1.005-1.025) Urine Protein NEG (NEG-TRACE) MG/DL Urine Glucose (UA) NEG (NEG) MG/DL Urine Ketones NEG (NEG) MG/DL Urine Blood NEG (NEG) Urine Nitrite NEG (NEG) Ur Leukocyte Esterase NEG (NEG) Salicylates (15-30) mg/dL Urine Opiates Screen (Not Detect) Urine Fentanyl Screen (Not Detect) Acetaminophen (<30) mcg/mL Ur Barbiturates Screen (Not Detect) Ur Phencyclidine Scrn (Not Detect) Ur Amphetamines Screen (Not Detect) U Benzodiazepines Scrn (Not Detect) [place] (0.60-1.20) mmol/L Urine Cocaine Screen (Not Detect) U Marijuana (THC) Screen (Not Detect) Ethyl Alcohol mg/dL COVID-19 (HUNTER) (Negative) COVID-19 Clin Com ECG Data Attestation: I personally reviewed and interpreted this ECG as follows: Interpretation: 2107: Normal sinus rhythm with a rate of 79, prolonged AK interval of 210 milliseconds consistent with a first-degree AV block, prolonged QRS of 108 milliseconds, normal QTC interval of 467 milliseconds, no ST segment elevation, less than [address] segment depression in leads 2, 3, AVF, V3 through V6, right bundle-branch block, no PACs are no PVCs. Compared to EKG dated 09/18/2021, the ST segment depressions are not new on the previous EKG the patient had inverted T-waves in the to through V3 and V3 through V6 which have now normalized. Discharge Plan Discharge Clinical Impression: Schizoaffective disorder, bipolar type, Agitated Patient Disposition: Still a Patient Prescriptions: No Action levothyroxine 175 mcg tablet 1 tab PO DAILY 0RF carvedilol 12.5 mg tablet 1 tab PO BID 0RF trazodone 50 mg tablet 50 mg PO BEDTIME PRN (Reason: Insomnia) 0RF clozapine 50 mg tablet 50 mg PO BID@0900,1300 0RF Eliquis 5 mg tablet 1 tab PO BID 0RF polyvinyl alcohol [Artificial Tears (polyvin alc)] 1.4 % Drops 2 drp ophthalmic (eye) QID Qty: 15 0RF nystatin-triamcinolone 100,000-0.1 unit/g-% Cream 1 appl topical BID Qty: 15 0RF Protocol: Apply to: Apply to: face trazodone 50 mg tablet 2 tab PO BEDTIME 0RF lithium carbonate 450 mg tablet extended release 1 tab PO BID 0RF lorazepam 0.5 mg Tablet 0.5 mg PO BID PRN (Reason: Anxiety) 0RF clozapine 25 mg tablet 25 mg PO BID@0900,1300 0RF clozapine 50 mg tablet 150 mg PO BEDTIME 0RF trazodone 50 mg Tablet 25 mg PO Q12H PRN (Reason: Agitation) 0RF
[2021-10-15] MEDS: diphenhydrAMINE HCL 25 MG TABLET 50 MG PO (16:16)
[2021-10-15] MEDS: HaloperidoL 5 MG TABLET 10 MG PO (16:16)
[2021-10-15] MEDS: LORazepam 1 MG TABLET 2 MG PO (16:16)
--- NOTE | 2021-10-15 16:28 | PHA.MEDREC ---
Pharmacy Consult ? Medication Reconciliation Pharmacy has completed the medication reconciliation.
--- NOTE | 2021-10-15 16:55 | PC.NURSE ---
pt currently refusing to allow staff to collect a covid swab and blood draw. t/w stressed to patient importance of these tests for medical clearance pt refused again. rn aware
--- NOTE | 2021-10-15 17:07 | PC.NURSE ---
I know how this is gonna go...im geting sick of the meds clearly declined covid swab its against the bible I dont want anyone touching my body
--- NOTE | 2021-10-15 18:06 | PC.NURSE ---
patient pulled me aside and believes he recognizes me, speaks quickly about his divorce and splits of property in divorce and seems to wants reassurance do you think im going to hell (t/w gave reaSSUYRANCE)
[2021-10-15 19:28] LABS: MANUAL DIFF FLAG NO
[2021-10-15 19:35] LABS: Basophils Percent Auto 0.3 % (0-2); Eosinophils Absolute Auto 0.3 X10*3/uL (0.0-0.4); Eosinophils Percent Auto 2.4 % (0-4); Hematocrit 37.8 % (42.0-52.0); Hemoglobin 12.4 g/dl (14.0-18.0); Imm Gran Abs Auto 0.04 X10*3/uL (0.00-0.03); Imm Gran Pct Auto 0.4 % (0.0-0.4); Lymphocytes Absolute Auto 2.2 X10*3/uL (1.2-4.9); Lymphocytes Percent Auto 20.9 % (20-40); Mean Corpuscular HGB Conc 32.8 g/dl (31.0-36.0); Mean Corpuscular Hemoglobin 28.8 pg (27.0-33.0); Mean Corpuscular Volume 87.7 fL (80.0-98.0); Mean Platelet Volume 9.9 fL (9.4-12.4); Monocytes Absolute Auto 0.5 X10*3/uL (0.1-1.2); Neutrophils Absolute Auto 7.3 x10*3/uL (2.0-8.3); Platelet Count 321 X10*3/uL (160-400); Red Blood Count 4.31 X10*6/uL (4.60-5.80); Red Cell Distribution Width 13.3 % (11.0-16.0); White Blood Count 10.3 X10*3/uL (4.8-10.8)
[2021-10-15 19:42] LABS: COVID-19 Test Negative (Negative)
[2021-10-15 19:43] LABS: Ethanol < 10 mg/dL
[2021-10-15 19:53] LABS: Alanine Aminotransferase 21 U/L (0-40); Albumin Level 4.3 g/dL (3.5-5.0); Alkaline Phosphatase 88 U/L (39-117); Anion Gap 12 (12-20); Aspartate Amino Transferase 12 U/L (5-37); Bilirubin Total 0.3 mg/dL (0.0-1.0); Blood Urea Nitrogen 11 mg/dL (9-16); Calcium 9.8 mg/dL (8.4-10.2); Carbon Dioxide 24 mmol/L (22-29); Chloride 106 mmol/L (96-108); Creatinine Clr Calc Pharmacy 66.7; Estimated Glomerular Filt Rate 60; Glucose Random 198 mg/dL (60-115); Potassium 3.6 mmol/L (3.3-5.1); Sodium 138 mmol/L (135-145); Total Protein 6.9 g/dL (6.5-8.0)
[2021-10-15 20:05] LABS: Lithium 0.57 mmol/L (0.60-1.20)
[2021-10-15 20:12] LABS: Acetaminophen LAB < 1 mcg/mL (<30); Salicylate < 5.0 mg/dL (15-30)
[2021-10-15 20:17] LABS: Appearance Urine CLEAR; Color Urine YELLOW; Glucose Urine UA NEG (NEG); Leukocyte Esterase Urine NEG (NEG); Nitrite Urine NEG (NEG); PH 5.5 (5.0-8.0); Urine Blood NEG (NEG); Urine Ketones NEG (NEG); Urine Protein NEG (NEG-TRACE)
[2021-10-15 20:19] VITALS: BP 142/82; PULSE 87; RESP 18; TEMP 36.9; O2SAT 96
[2021-10-15 20:21] LABS: Amphetamine Screen Urine Not Detected (Not Detect); Barbiturates, Urine Not Detected (Not Detect); Benzodiazepines Screen Urine Not Detected (Not Detect); Cannabinoid Screen Urine Not Detected (Not Detect); Cocaine Screen Urine Not Detected (Not Detect); Fentanyl, urine Not Detected (Not Detect); Opiate Screen Urine Not Detected (Not Detect); Phencyclidine Screen Urine Not Detected (Not Detect)
[2021-10-15] MEDS: Apixaban 5 MG TABLET PO (20:21)
[2021-10-15] MEDS: carvediloL 12.5 MG TABLET PO (20:21)
[2021-10-15] MEDS: Lithium Carbonate ER 450 MG TABLET.ER PO (20:21)
[2021-10-15] MEDS: traZODone HCL 100 MG TABLET PO (20:21)
[2021-10-15] MEDS: cloZAPine 100 MG TABLET 150 MG PO (20:30)
[2021-10-16 02:03] VITALS: BP 146/75; PULSE 75; RESP 18; TEMP 36.1; O2SAT 97
[2021-10-16 02:22] VITALS: BP 146/75; PULSE 75; RESP 18; TEMP 36.1; O2SAT 97; BMI 30.3
--- NOTE | 2021-10-16 02:49 | PC.NURSE ---
patient was admitted from [facility] ER after having had a aggressive episode at [facility] where he resides. Patient was medicated in the ER and is now calm and cooperative and very sleepy. Patient mumbles his words and is difficult to understand. Patient denies any pain and requests to go to sleep. Full admission assessment not completed.
[2021-10-16 08:10] VITALS: BP 145/85; PULSE 85; RESP 16; TEMP 36.5; O2SAT 96
[2021-10-16] MEDS: cloZAPine 25 MG TABLET 75 MG PO ×2 (08:39→12:28)
[2021-10-16] MEDS: Lithium Carbonate ER 450 MG TABLET.ER PO ×2 (08:40→20:13)
[2021-10-16] MEDS: Levothyroxine Sodium 175 MCG TABLET PO (08:40)
[2021-10-16] MEDS: Apixaban 5 MG TABLET PO ×2 (08:40→20:14)
[2021-10-16] MEDS: carvediloL 12.5 MG TABLET PO ×2 (08:40→20:14)
[2021-10-16 10:23] VITALS: BMI 30.4
--- NOTE | 2021-10-16 14:20 | P.HPPS_ITS ---
[facility] Date of Service: 10/16/21 Chief Complaint: Psychosis Sources of Information: patient interviewed and chart reviewed HPI Subjective Notes: Conditional Voluntary Narrative: The patient is a 65-year-old male, resident of an assisted living facility, chronically mentally ill with a diagnosis of schizoaffective disorder bipolar type, on Clozaril and lithium, recently discharged from this facility a few weeks ago. According to the crisis assessment, the patient was doing well after discharge but recently in the last days he became very agitated and violent at his retirement. He was rushed to the emergency room and he needed to be medicated with Haldol 10 mg Ativan 2 mg and Benadryl 50 mg IM. On intake interview, the patient was pleasant and cooperative and suddenly he started being tearful, crying stating that God will not forgive him . The patient was easily redirectable with verbal intervention by the staff. He has a very poor historian and he cannot recollect what happened at the assisted living facility. He was seen responding not to not stimuli at times. Past Psychiatric History: Inpatient: per [facility] documentation, multiple inpt admission since age 15 when he had first psychotic episode. Most recently at [facility] 2005; [facility] 2019. OP: Brittany Nicolas Past medication trial: lithium, clozaril. Medical Evaluation Reviewed: Hospitalist Haydee Duraning [facility] Medical History Atrial fibrillation History of ETT Hypertension Hypothyroidism Obstructive sleep apnea PAF (paroxysmal atrial fibrillation) Schizoaffective disorder, bipolar type Surgical History H/O arthroscopic knee surgery H/O congenital atrial septal defect (ASD) repair Hx laparoscopic cholecystectomy Family History: Unknown Social History: chronically mentally ill, with several admissions into the hospital for psychotic episodes and probably long-term hospitalizations. At this moment, the patient resides at at longterm facility. Substance History: Denies Trauma History: denies Diagnostics Vital Signs (24Hr): Vital Signs - 24 hr 10/15/21 14:27 10/15/21 20:19 10/16/21 02:03 Temperature 98 F 98.4 F 97 F Pulse Rate 70 87 75 Respiratory Rate 16 18 18 Blood Pressure 146/76 H 142/82 H 146/75 H Pulse Oximetry 97 96 97 10/16/21 02:22 10/16/21 08:10 Temperature 97 F 97.7 F Pulse Rate 75 85 Respiratory Rate 18 16 Blood Pressure 146/75 H 145/85 H Pulse Oximetry 97 96 BMI result Body Mass Index 30.4 Labs Results: 10/15/21 19:22 10/15/21 19:22 Labs: Laboratory Results - last 48 hr 10/15/21 10/15/21 10/15/21 19:07 19:22 19:22 WBC 10.3 RBC 4.31 L Hgb 12.4 L Hct 37.8 L MCV 87.7 MCH 28.8 MCHC 32.8 RDW 13.3 Plt Count 321 MPV 9.9 Immature Gran % (Auto) 0.4 Neut % (Auto) 71.0 Lymph % (Auto) 20.9 [place] % (Auto) 5.0 Eos % (Auto) 2.4 Baso % (Auto) 0.3 Lymph # (Auto) 2.2 [place] # (Auto) 0.5 Eos # (Auto) 0.3 Baso # (Auto) 0.0 Abs Immat Gran (auto) 0.04 H Absolute Neuts (auto) 7.3 Absolute Nucleated RBC 0.000 Nucleated RBC % (auto) 0.0 Sodium 138 Potassium 3.6 Chloride 106 Carbon Dioxide 24 Anion Gap 12 BUN 11 Creatinine 1.21 Estim Creat Clear Calc 66.7 Estimated GFR 60 Random Glucose 198 H Calcium 9.8 Total Bilirubin 0.3 AST 12 ALT 21 Alkaline Phosphatase 88 D Total Protein 6.9 Albumin 4.3 Urine Color Urine Appearance Urine pH Ur Specific [place] Urine Protein Urine Glucose (UA) Urine Ketones Urine Blood Urine Nitrite Ur Leukocyte Esterase Salicylates < 5.0 L Urine Opiates Screen Urine Fentanyl Screen Acetaminophen < 1 Ur Barbiturates Screen Ur Phencyclidine Scrn Ur Amphetamines Screen U Benzodiazepines Scrn [place] Urine Cocaine Screen U Marijuana (THC) Screen Ethyl Alcohol COVID-19 ([facility]) Negative COVID-19 Clin Com See Note 10/15/21 10/15/21 10/15/21 19:22 19:22 19:36 WBC RBC Hgb Hct MCV MCH MCHC RDW Plt Count MPV Immature Gran % (Auto) Neut % (Auto) Lymph % (Auto) [place] % (Auto) Eos % (Auto) Baso % (Auto) Lymph # (Auto) [place] # (Auto) Eos # (Auto) Baso # (Auto) Abs Immat Gran (auto) Absolute Neuts (auto) Absolute Nucleated RBC Nucleated RBC % (auto) Sodium Potassium Chloride Carbon Dioxide Anion Gap BUN Creatinine Estim Creat Clear Calc Estimated GFR Random Glucose Calcium Total Bilirubin AST ALT Alkaline Phosphatase Total Protein Albumin Urine Color Urine Appearance Urine pH Ur Specific [place] Urine Protein Urine Glucose (UA) Urine Ketones Urine Blood Urine Nitrite Ur Leukocyte Esterase Salicylates Urine Opiates Screen Not Detected Urine Fentanyl Screen Not Detected Acetaminophen Ur Barbiturates Screen Not Detected Ur Phencyclidine Scrn Not Detected Ur Amphetamines Screen Not Detected U Benzodiazepines Scrn Not Detected [place] 0.57 L Urine Cocaine Screen Not Detected U Marijuana (THC) Screen Not Detected Ethyl Alcohol < 10 COVID-19 ([facility]) COVID-[place] 10/15/21 19:36 WBC RBC Hgb Hct MCV MCH MCHC RDW Plt Count MPV Immature Gran % (Auto) Neut % (Auto) Lymph % (Auto) [place] % (Auto) Eos % (Auto) Baso % (Auto) Lymph # (Auto) [place] # (Auto) Eos # (Auto) Baso # (Auto) Abs Immat Gran (auto) Absolute Neuts (auto) Absolute Nucleated RBC Nucleated RBC % (auto) Sodium Potassium Chloride Carbon Dioxide Anion Gap BUN Creatinine Estim Creat Clear Calc Estimated GFR Random Glucose Calcium Total Bilirubin AST ALT Alkaline Phosphatase Total Protein Albumin Urine Color YELLOW Urine Appearance CLEAR Urine pH 5.5 Ur Specific [place] 1.020 Urine Protein NEG Urine Glucose (UA) NEG Urine Ketones NEG Urine Blood NEG Urine Nitrite NEG Ur Leukocyte Esterase NEG Salicylates Urine Opiates Screen Urine Fentanyl Screen Acetaminophen Ur Barbiturates Screen Ur Phencyclidine Scrn Ur Amphetamines Screen U Benzodiazepines Scrn [place] Urine Cocaine Screen U Marijuana (THC) Screen Ethyl Alcohol COVID-19 ([facility]) COVID-19 [employer] Com Imaging Radiology Impressions: ITS Impressions Head CT 10/15/21 21:29 IMPRESSION: No acute intracranial pathology. Meds/Allergies Meds Home Medications Acetaminophen (Acetaminophen 325 Mg Tablet) 650 mg PO Q6H PRN PRN Reason: Headache/Pain Mild Scale (1-3) Al Hydroxide/Mg Hydroxide (Magnesium Hydrox/Alum Hydrox 30 Ml Oral.Susp) 30 ml PO Q6H PRN PRN Reason: Heartburn/Nausea Apixaban (Apixaban 5 Mg Tablet) 5 mg PO BID [facility] Last Admin: 10/16/21 08:40 Dose: 5 mg Documented by: Artificial Tears (Artificial Tears 15 Ml Drops) 2 drop EYE-BOTH QID [facility] Last Admin: 10/16/21 10:52 Dose: Not Given Documented by: Carvedilol (Carvedilol 12.5 Mg Tablet) 12.5 mg PO BID [facility]; Protocol Last Admin: 10/16/21 08:40 Dose: 12.5 mg Documented by: Clozapine (Clozapine 25 Mg Tablet) 75 mg PO BID@0900,1300 [facility] Last Admin: 10/16/21 12:28 Dose: 75 mg Documented by: Clozapine (Clozapine 100 Mg Tablet) 150 mg PO BEDTIME [facility] Last Admin: 10/15/21 20:30 Dose: 150 mg Documented by: Levothyroxine Sodium (Levothyroxine Sodium 175 Mcg Tablet) 175 mcg PO DAILY@0600 [facility] Last Admin: 10/16/21 08:40 Dose: 175 mcg Documented by: [place] Carbonate ([place] Carbonate Er 450 Mg Tablet.Er) 450 mg PO BID [facility] Last Admin: 10/16/21 08:40 Dose: 450 mg Documented by: Lorazepam (Lorazepam 0.5 Mg Tablet) 0.5 mg PO BID PRN PRN Reason: Anxiety Magnesium Hydroxide (Milk Of Magnesia 30 Ml Oral.Susp) 30 ml PO DAILY PRN PRN Reason: Constipation Nystatin/Triamcinolone Acetonide (Nystatin/Triamcinolone Cream 15 Gm Tube) 1 a ppl TOPICAL BID [facility]; Protocol Last Admin: 10/16/21 10:52 Dose: Not Given Documented by: Trazodone HCl (Trazodone Hcl 25 Mg Halftab) 25 mg PO Q12H PRN PRN Reason: Agitation Trazodone HCl (Trazodone Hcl 100 Mg Tablet) 100 mg PO BEDTIME [facility] Last Admin: 10/15/21 20:21 Dose: 100 mg Documented by: Trazodone HCl (Trazodone Hcl 50 Mg Tablet) 50 mg PO BEDTIME PRN PRN Reason: Insomnia Allergies Allergies Allergy/AdvReac Type Severity Reaction Status Date / Time house dust Allergy Intermediate watery eyes Verified 08/20/21 11:33 adhesive Allergy Unknown Unknown Verified 10/15/21 14:32 fenofibrate Allergy Unknown Unknown Verified 10/15/21 14:32 Sulfa (Sulfonamide Allergy Unknown unknown Verified 10/15/21 14:32 Antibiotics) tomato Allergy Unknown Unknown Verified 10/15/21 14:32 Yeast Allergy Unknown Unknown Verified 10/15/21 14:32 zolpidem [From Ambien] Allergy Unknown Unknown Verified 10/15/21 14:32 lactose AdvReac Unknown Unknown Verified 10/15/21 14:32 Mental Status Exam Mental Status Exam Patient Appearance: Appropriate and Unkempt Patient Orientation: Person and Situation Level of Consciousness: Awake and Appropriate Patient Behavior: Guarded, Passive and Suspicious Mood Description: Depressed and Sad Affect Description: Labile Patient Cognition Impaired: Yes Ability to Follow Directions: Good Speech Pattern: Appropriate Hallucinations: Auditory Delusions: Paranoid Ideation Thought Process: Illogical, Distracted and Slowed Thinking Judgement: Fair Assessment & Plan Assessment & Plan (1) Schizoaffective disorder, bipolar type: Status: Acute Code(s): F25.0 - Schizoaffective disorder, bipolar type (2) PAF (paroxysmal atrial fibrillation): Status: Acute Code(s): I48.0 - Paroxysmal atrial fibrillation Plan the patient is an elderly male with a long history of schizoaffective disorder bipolar type, with several admissions into the hospital since his 1st psychotic break at the age of 15, readmitted due to aggressive behavior. It is unclear what was the treat year of the recent outburst of violence. Plan 1. Continue same medications. 2. Gather collateral information 3. Blood were with Clozaril level to be done tomorrow. Reason for continued inpatient stay Substantial Risk for: inability to function, rapid decompensation and med/psych decompensation
[2021-10-16] MEDS: Artificial Tears 15 ML DROPS 2 DROP EYE-BOTH (16:50)
[2021-10-16 19:43] VITALS: BP 166/81; PULSE 80; RESP 18; TEMP 36.4; O2SAT 97
[2021-10-16] MEDS: traZODone HCL 100 MG TABLET PO (20:14)
[2021-10-16] MEDS: cloZAPine 100 MG TABLET 150 MG PO (20:14)
[2021-10-17] MEDS: Levothyroxine Sodium 175 MCG TABLET PO (06:26)
[2021-10-17 08:34] VITALS: BP 133/69; PULSE 73; RESP 14; TEMP 37.1; O2SAT 96
[2021-10-17] MEDS: Apixaban 5 MG TABLET PO ×2 (08:50→20:20)
[2021-10-17] MEDS: Artificial Tears 15 ML DROPS 2 DROP EYE-BOTH ×4 (08:50→20:20)
[2021-10-17] MEDS: Lithium Carbonate ER 450 MG TABLET.ER PO ×2 (08:50→20:20)
[2021-10-17] MEDS: cloZAPine 25 MG TABLET 75 MG PO ×2 (08:50→13:13)
[2021-10-17] MEDS: carvediloL 12.5 MG TABLET PO ×2 (08:50→20:20)
--- NOTE | 2021-10-17 13:30 | HO.PSYCHPN ---
Subjective Subjective Date of Service: 10/17/21 Reason For Visit: Psychosis Subjective Notes: Conditional Voluntary (By healthcare proxy) Interim History: the nursing staff reported that the patient has been weepy at times, he wants to go home, he responds to internal stimuli at times but he is easily redirectable. On interview, the patient reports that he is doing fine but later he starts crying, his mood looks slough I will but no evidence of agitation or violence. We will recheck lithium level on Wednesday and Clozaril level. Mental Status Exam Mental Status Exam Patient Appearance: Appropriate Patient Orientation: Person and Situation Level of Consciousness: Awake Mood Description: Depressed Affect Description: Labile Patient Cognition Impaired: No Ability to Follow Directions: Fair Speech Pattern: Slurred and Garbled Hallucinations: Auditory Delusions: Paranoid Ideation Thought Process: Illogical and Slowed Thinking Thought Content: positive for Disorganized Depressive Symptoms: Feelings of Worthlessness and Feelings of Guilt Judgement: Poor Diagnostics Vital Signs (24Hr): Vital Signs - 24 hr 10/16/21 19:43 10/17/21 08:34 Temperature 97.6 F 98.7 F Pulse Rate 80 73 Respiratory Rate 18 14 Blood Pressure 166/81 H 133/69 Pulse Oximetry 97 96 BMI result Body Mass Index 30.4 Labs Results: 10/15/21 19:22 10/15/21 19:22 Labs: Laboratory Results - last 48 hr 10/15/21 10/15/21 10/15/21 19:07 19:22 19:22 WBC 10.3 RBC 4.31 L Hgb 12.4 L Hct 37.8 L MCV 87.7 MCH 28.8 MCHC 32.8 RDW 13.3 Plt Count 321 MPV 9.9 Immature Gran % (Auto) 0.4 Neut % (Auto) 71.0 Lymph % (Auto) 20.9 [place] % (Auto) 5.0 Eos % (Auto) 2.4 Baso % (Auto) 0.3 Lymph # (Auto) 2.2 [place] # (Auto) 0.5 Eos # (Auto) 0.3 Baso # (Auto) 0.0 Abs Immat Gran (auto) 0.04 H Absolute Neuts (auto) 7.3 Absolute Nucleated RBC 0.000 Nucleated RBC % (auto) 0.0 Sodium 138 Potassium 3.6 Chloride 106 Carbon Dioxide 24 Anion Gap 12 BUN 11 Creatinine 1.21 Estim Creat Clear Calc 66.7 Estimated GFR 60 Random Glucose 198 H Calcium 9.8 Total Bilirubin 0.3 AST 12 ALT 21 Alkaline Phosphatase 88 D Total Protein 6.9 Albumin 4.3 Urine Color Urine Appearance Urine pH Ur Specific [place] Urine Protein Urine Glucose (UA) Urine Ketones Urine Blood Urine Nitrite Ur Leukocyte Esterase Salicylates < 5.0 L Urine Opiates Screen Urine Fentanyl Screen Acetaminophen < 1 Ur Barbiturates Screen Ur Phencyclidine Scrn Ur Amphetamines Screen U Benzodiazepines Scrn [place] Urine Cocaine Screen U Marijuana (THC) Screen Ethyl Alcohol COVID-19 ([facility]) Negative COVID-19 Clin Com See Note 10/15/21 10/15/21 10/15/21 19:22 19:22 19:36 WBC RBC Hgb Hct MCV MCH MCHC RDW Plt Count MPV Immature Gran % (Auto) Neut % (Auto) Lymph % (Auto) [place] % (Auto) Eos % (Auto) Baso % (Auto) Lymph # (Auto) [place] # (Auto) Eos # (Auto) Baso # (Auto) Abs Immat Gran (auto) Absolute Neuts (auto) Absolute Nucleated RBC Nucleated RBC % (auto) Sodium Potassium Chloride Carbon Dioxide Anion Gap BUN Creatinine Estim Creat Clear Calc Estimated GFR Random Glucose Calcium Total Bilirubin AST ALT Alkaline Phosphatase Total Protein Albumin Urine Color Urine Appearance Urine pH Ur Specific [place] Urine Protein Urine Glucose (UA) Urine Ketones Urine Blood Urine Nitrite Ur Leukocyte Esterase Salicylates Urine Opiates Screen Not Detected Urine Fentanyl Screen Not Detected Acetaminophen Ur Barbiturates Screen Not Detected Ur Phencyclidine Scrn Not Detected Ur Amphetamines Screen Not Detected U Benzodiazepines Scrn Not Detected [place] 0.57 L Urine Cocaine Screen Not Detected U Marijuana (THC) Screen Not Detected Ethyl Alcohol < 10 COVID-19 ([facility]) COVID-19 Clin Com 10/15/21 19:36 WBC RBC Hgb Hct MCV MCH MCHC RDW Plt Count MPV Immature Gran % (Auto) Neut % (Auto) Lymph % (Auto) [place] % (Auto) Eos % (Auto) Baso % (Auto) Lymph # (Auto) [place] # (Auto) Eos # (Auto) Baso # (Auto) Abs Immat Gran (auto) Absolute Neuts (auto) Absolute Nucleated RBC Nucleated RBC % (auto) Sodium Potassium Chloride Carbon Dioxide Anion Gap BUN Creatinine Estim Creat Clear Calc Estimated GFR Random Glucose Calcium Total Bilirubin AST ALT Alkaline Phosphatase Total Protein Albumin Urine Color YELLOW Urine Appearance CLEAR Urine pH 5.5 Ur Specific [place] 1.020 Urine Protein NEG Urine Glucose (UA) NEG Urine Ketones NEG Urine Blood NEG Urine Nitrite NEG Ur Leukocyte Esterase NEG Salicylates Urine Opiates Screen Urine Fentanyl Screen Acetaminophen Ur Barbiturates Screen Ur Phencyclidine Scrn Ur Amphetamines Screen U Benzodiazepines Scrn [place] Urine Cocaine Screen U Marijuana (THC) Screen Ethyl Alcohol COVID-19 ([facility]) COVID-19 Clin Com Imaging Radiology Impressions: ITS Impressions Head CT 10/15/21 21:29 IMPRESSION: No acute intracranial pathology. Medications Medications Current Medications Acetaminophen (Acetaminophen 325 Mg Tablet) 650 mg PO Q6H PRN PRN Reason: Headache/Pain Mild Scale (1-3) Al Hydroxide/Mg Hydroxide (Magnesium Hydrox/Alum Hydrox 30 Ml Oral.Susp) 30 ml PO Q6H PRN PRN Reason: Heartburn/Nausea Apixaban (Apixaban 5 Mg Tablet) 5 mg PO BID [facility] Last Admin: 10/17/21 08:50 Dose: 5 mg Documented by: Artificial Tears (Artificial Tears 15 Ml Drops) 2 drop EYE-BOTH QID [facility] Last Admin: 10/17/21 13:13 Dose: 2 drop Documented by: Carvedilol (Carvedilol 12.5 Mg Tablet) 12.5 mg PO BID [facility]; Protocol Last Admin: 10/17/21 08:50 Dose: 12.5 mg Documented by: Clozapine (Clozapine 25 Mg Tablet) 75 mg PO BID@0900,1300 [facility] Last Admin: 10/17/21 13:13 Dose: 75 mg Documented by: Clozapine (Clozapine 100 Mg Tablet) 150 mg PO BEDTIME [facility] Last Admin: 10/16/21 20:14 Dose: 150 mg Documented by: Levothyroxine Sodium (Levothyroxine Sodium 175 Mcg Tablet) 175 mcg PO DAILY@0600 [facility] Last Admin: 10/17/21 06:26 Dose: 175 mcg Documented by: [place] Carbonate ([place] Carbonate Er 450 Mg Tablet.Er) 450 mg PO BID [facility] Last Admin: 10/17/21 08:50 Dose: 450 mg Documented by: Lorazepam (Lorazepam 0.5 Mg Tablet) 0.5 mg PO BID PRN PRN Reason: Anxiety Magnesium Hydroxide (Milk Of Magnesia 30 Ml Oral.Susp) 30 ml PO DAILY PRN PRN Reason: Constipation Nystatin/Triamcinolone Acetonide (Nystatin/Triamcinolone Cream 15 Gm Tube) 1 appl TOPICAL BID [facility]; Protocol Last Admin: 10/17/21 08:53 Dose: Not Given Documented by: Trazodone HCl (Trazodone Hcl 25 Mg Halftab) 25 mg PO Q12H PRN PRN Reason: Agitation Trazodone HCl (Trazodone Hcl 100 Mg Tablet) 100 mg PO BEDTIME [facility] Last Admin: 10/16/21 20:14 Dose: 100 mg Documented by: Trazodone HCl (Trazodone Hcl 50 Mg Tablet) 50 mg PO BEDTIME PRN PRN Reason: Insomnia Allergies Allergies Allergy/AdvReac Type Severity Reaction Status Date / Time house dust Allergy Intermediate watery eyes Verified 08/20/21 11:33 adhesive Allergy Unknown Unknown Verified 10/15/21 14:32 fenofibrate Allergy Unknown Unknown Verified 10/15/21 14:32 Sulfa (Sulfonamide Allergy Unknown unknown Verified 10/15/21 14:32 Antibiotics) tomato Allergy Unknown Unknown Verified 10/15/21 14:32 Yeast Allergy Unknown Unknown Verified 10/15/21 14:32 zolpidem [From Ambien] Allergy Unknown Unknown Verified 10/15/21 14:32 lactose AdvReac Unknown Unknown Verified 10/15/21 14:32 Assessment & Plan Assessment & Plan (1) Schizoaffective disorder, bipolar type: Status: Acute Code(s): F25.0 - Schizoaffective disorder, bipolar type (2) PAF (paroxysmal atrial fibrillation): Status: Acute Code(s): I48.0 - Paroxysmal atrial fibrillation Plan the patient is an elderly male with a long history of schizoaffective disorder bipolar type, with several admissions into the hospital since his 1st psychotic break at the age of 15, readmitted due to aggressive behavior. It is unclear what was the trigger of the recent outburst of violence. Plan 1. Continue same medications. 2. Gather collateral information 3. Blood were with Clozaril level to be done on Wednesday. I spent minutes with the patient and/or on the patient floor today, greater than?50% of which was spent counseling/coordinating care. Reason for contiued inpatient stay Substantial Risk for: harm to others, inability to function, rapid decompensation and med/psych decompensation
[2021-10-17 20:15] VITALS: BP 154/85; PULSE 86; RESP 18; TEMP 36.6; O2SAT 97
[2021-10-17] MEDS: cloZAPine 100 MG TABLET 150 MG PO (20:20)
[2021-10-17] MEDS: traZODone HCL 100 MG TABLET PO (20:20)
[2021-10-18] MEDS: Levothyroxine Sodium 175 MCG TABLET PO (06:16)
[2021-10-18 08:00] VITALS: BP 136/70; PULSE 80; TEMP 36.5; O2SAT 97
[2021-10-18] MEDS: cloZAPine 25 MG TABLET 75 MG PO ×2 (08:24→13:25)
[2021-10-18] MEDS: Apixaban 5 MG TABLET PO ×2 (08:24→20:17)
[2021-10-18] MEDS: Lithium Carbonate ER 450 MG TABLET.ER PO ×2 (08:24→20:17)
[2021-10-18] MEDS: Nystatin/Triamcinolone Cream 15 GM TUBE 1 APPL TOPICAL (08:24)
[2021-10-18] MEDS: Artificial Tears 15 ML DROPS 2 DROP EYE-BOTH ×4 (08:24→20:17)
[2021-10-18] MEDS: carvediloL 12.5 MG TABLET PO ×2 (09:11→20:17)
--- NOTE | 2021-10-18 10:32 | HO.PSYCHPN ---
Subjective Subjective Date of Service: 10/18/21 Reason For Visit: Psychosis Interim History: pt found resting in his bed, awake. receptive to interview. states his therapy and pills treatment here is going well. does endorse nightmares. spontaneously producing non-sequiturs. per staff, urinary incontinence last NOC. sleeping well. calm and cooperative. no concerns. Mental Status Exam Mental Status Exam Narrative: dressed in hospital attire, disheveled, lying in bed. no PMA/PMR. cooperative with interview. speech nml in amount, incr in rate, somewhat dysarthric. thoughts disorganized. affect constricted. mood unknown. no SI/HI/AVH expressed. Diagnostics Vital Signs (24Hr): Vital Signs - 24 hr 10/17/21 20:15 10/18/21 08:00 Temperature 97.9 F 97.7 F Pulse Rate 86 80 Respiratory Rate 18 Blood Pressure 154/85 H 136/70 Pulse Oximetry 97 97 BMI result Body Mass Index 30.4 Labs Results: 10/15/21 19:22 10/15/21 19:22 Imaging Radiology Impressions: ITS Impressions Head CT 10/15/21 21:29 IMPRESSION: No acute intracranial pathology. Medications Medications Current Medications Acetaminophen (Acetaminophen 325 Mg Tablet) 650 mg PO Q6H PRN PRN Reason: Headache/Pain Mild Scale (1-3) Al Hydroxide/Mg Hydroxide (Magnesium Hydrox/Alum Hydrox 30 Ml Oral.Susp) 30 ml PO Q6H PRN PRN Reason: Heartburn/Nausea Apixaban (Apixaban 5 Mg Tablet) 5 mg PO BID [facility] Last Admin: 10/18/21 08:24 Dose: 5 mg Documented by: Artificial Tears (Artificial Tears 15 Ml Drops) 2 drop EYE-BOTH QID [facility] Last Admin: 10/18/21 08:24 Dose: 2 drop Documented by: Carvedilol (Carvedilol 12.5 Mg Tablet) 12.5 mg PO BID [facility]; Protocol Last Admin: 10/18/21 09:11 Dose: 12.5 mg Documented by: Clozapine (Clozapine 25 Mg Tablet) 75 mg PO BID@0900,1300 [facility] Last Admin: 10/18/21 08:24 Dose: 75 mg Documented by: Clozapine (Clozapine 100 Mg Tablet) 150 mg PO BEDTIME [facility] Last Admin: 10/17/21 20:20 Dose: 150 mg Documented by: Levothyroxine Sodium (Levothyroxine Sodium 175 Mcg Tablet) 175 mcg PO DAILY@0600 [facility] Last Admin: 10/18/21 06:16 Dose: 175 mcg Documented by: [place] Carbonate ([place] Carbonate Er 450 Mg Tablet.Er) 450 mg PO BID [facility] Last Admin: 10/18/21 08:24 Dose: 450 mg Documented by: Lorazepam (Lorazepam 0.5 Mg Tablet) 0.5 mg PO BID PRN PRN Reason: Anxiety Magnesium Hydroxide (Milk Of Magnesia 30 Ml Oral.Susp) 30 ml PO DAILY PRN PRN Reason: Constipation Nystatin/Triamcinolone Acetonide (Nystatin/Triamcinolone Cream 15 Gm Tube) 1 appl TOPICAL BID [facility]; Protocol Last Admin: 10/18/21 08:24 Dose: 1 appl Documented by: Trazodone HCl (Trazodone Hcl 25 Mg Halftab) 25 mg PO Q12H PRN PRN Reason: Agitation Trazodone HCl (Trazodone Hcl 100 Mg Tablet) 100 mg PO BEDTIME [facility] Last Admin: 10/17/21 20:20 Dose: 100 mg Documented by: Trazodone HCl (Trazodone Hcl 50 Mg Tablet) 50 mg PO BEDTIME PRN PRN Reason: Insomnia Allergies Allergies Allergy/AdvReac Type Severity Reaction Status Date / Time house dust Allergy Intermediate watery eyes Verified 08/20/21 11:33 adhesive Allergy Unknown Unknown Verified 10/15/21 14:32 fenofibrate Allergy Unknown Unknown Verified 10/15/21 14:32 Sulfa (Sulfonamide Allergy Unknown unknown Verified 10/15/21 14:32 Antibiotics) tomato Allergy Unknown Unknown Verified 10/15/21 14:32 Yeast Allergy Unknown Unknown Verified 10/15/21 14:32 zolpidem [From Ambien] Allergy Unknown Unknown Verified 10/15/21 14:32 lactose AdvReac Unknown Unknown Verified 10/15/21 14:32 Assessment & Plan Assessment & Plan (1) Schizoaffective disorder, bipolar type: Status: Acute Code(s): F25.0 - Schizoaffective disorder, bipolar type (2) PAF (paroxysmal atrial fibrillation): Status: Acute Code(s): I48.0 - Paroxysmal atrial fibrillation Plan the patient is an elderly male with a long history of schizoaffective disorder bipolar type, with several admissions into the hospital since his 1st psychotic break at the age of 15, readmitted due to aggressive behavior. It is unclear what was the trigger of the recent outburst of violence. Plan 1. Continue same medications. 2. Gather collateral information 3. Blood work with Clozaril level to be done on Wednesday. I spent minutes with the patient and/or on the patient floor today, greater than?50% of which was spent counseling/coordinating care. Reason for contiued inpatient stay Substantial Risk for: inability to function and rapid decompensation
[2021-10-18 20:08] VITALS: BP 168/70; PULSE 94; RESP 18; TEMP 37.1; O2SAT 97
[2021-10-18] MEDS: traZODone HCL 100 MG TABLET PO (20:17)
[2021-10-18] MEDS: cloZAPine 100 MG TABLET 150 MG PO (20:17)
[2021-10-18] MEDS: Acetaminophen 325 MG TABLET 650 MG PO (20:22)
[2021-10-19] MEDS: Levothyroxine Sodium 175 MCG TABLET PO (05:35)
[2021-10-19 06:00] VITALS: BP 132/87; PULSE 86; TEMP 36.6; O2SAT 97
--- NOTE | 2021-10-19 10:18 | HO.PSYCHPN ---
Subjective Subjective Date of Service: 10/19/21 Reason For Visit: Psychosis Interim History: pt found lying in his bed. irritable upon MD's entrance, states he has been awakened 5 times overnight and he is tired of people coming and waking him up every 15 minutes. he is able to tolerate a quick check-in during which he denies any questions or complaints for MD. he prefers to be left alone to rest. per staff, slept well overnight, no issues. Mental Status Exam Mental Status Exam Narrative: dressed in hospital attire, disheveled, lying in bed. no PMA/PMR. minimally cooperative with interview. speech decr in amount, incr in rate, somewhat dysarthric. thoughts disorganized. affect constricted. mood unknown. no SI/HI/AVH expressed. Diagnostics Vital Signs (24Hr): Vital Signs - 24 hr 10/18/21 20:08 Temperature 98.7 F Pulse Rate 94 Respiratory Rate 18 Blood Pressure 168/70 H Pulse Oximetry 97 BMI result Body Mass Index 30.4 Labs Results: 10/15/21 19:22 10/15/21 19:22 Imaging Radiology Impressions: ITS Impressions Head CT 10/15/21 21:29 IMPRESSION: No acute intracranial pathology. Medications Medications Current Medications Acetaminophen (Acetaminophen 325 Mg Tablet) 650 mg PO Q6H PRN PRN Reason: Headache/Pain Mild Scale (1-3) Last Admin: 10/18/21 20:22 Dose: 650 mg Documented by: Al Hydroxide/Mg Hydroxide (Magnesium Hydrox/Alum Hydrox 30 Ml Oral.Susp) 30 ml PO Q6H PRN PRN Reason: Heartburn/Nausea Apixaban (Apixaban 5 Mg Tablet) 5 mg PO BID [facility] Last Admin: 10/18/21 20:17 Dose: 5 mg Documented by: Artificial Tears (Artificial Tears 15 Ml Drops) 2 drop EYE-BOTH QID [facility] Last Admin: 10/18/21 20:17 Dose: 2 drop Documented by: Carvedilol (Carvedilol 12.5 Mg Tablet) 12.5 mg PO BID [facility]; Protocol Last Admin: 10/18/21 20:17 Dose: 12.5 mg Documented by: Clozapine (Clozapine 25 Mg Tablet) 75 mg PO BID@0900,1300 [facility] Last Admin: 10/18/21 13:25 Dose: 75 mg Documented by: Clozapine (Clozapine 100 Mg Tablet) 150 mg PO BEDTIME [facility] Last Admin: 10/18/21 20:17 Dose: 150 mg Documented by: Levothyroxine Sodium (Levothyroxine Sodium 175 Mcg Tablet) 175 mcg PO DAILY@0600 [facility] Last Admin: 10/19/21 05:35 Dose: 175 mcg Documented by: [place] Carbonate ([place] Carbonate Er 450 Mg Tablet.Er) 450 mg PO BID [facility] Last Admin: 10/18/21 20:17 Dose: 450 mg Documented by: Lorazepam (Lorazepam 0.5 Mg Tablet) 0.5 mg PO BID PRN PRN Reason: Anxiety Magnesium Hydroxide (Milk Of Magnesia 30 Ml Oral.Susp) 30 ml PO DAILY PRN PRN Reason: Constipation Nystatin/Triamcinolone Acetonide (Nystatin/Triamcinolone Cream 15 Gm Tube) 1 appl TOPICAL BID [facility]; Protocol Last Admin: 10/18/21 20:26 Dose: Not Given Documented by: Trazodone HCl (Trazodone Hcl 25 Mg Halftab) 25 mg PO Q12H PRN PRN Reason: Agitation Trazodone HCl (Trazodone Hcl 100 Mg Tablet) 100 mg PO BEDTIME [facility] Last Admin: 10/18/21 20:17 Dose: 100 mg Documented by: Trazodone HCl (Trazodone Hcl 50 Mg Tablet) 50 mg PO BEDTIME PRN PRN Reason: Insomnia Allergies Allergies Allergy/AdvReac Type Severity Reaction Status Date / Time house dust Allergy Intermediate watery eyes Verified 08/20/21 11:33 adhesive Allergy Unknown Unknown Verified 10/15/21 14:32 fenofibrate Allergy Unknown Unknown Verified 10/15/21 14:32 Sulfa (Sulfonamide Allergy Unknown unknown Verified 10/15/21 14:32 Antibiotics) tomato Allergy Unknown Unknown Verified 10/15/21 14:32 Yeast Allergy Unknown Unknown Verified 10/15/21 14:32 zolpidem [From Ambien] Allergy Unknown Unknown Verified 10/15/21 14:32 lactose AdvReac Unknown Unknown Verified 10/15/21 14:32 Assessment & Plan Assessment & Plan (1) Schizoaffective disorder, bipolar type: Status: Acute Code(s): F25.0 - Schizoaffective disorder, bipolar type (2) PAF (paroxysmal atrial fibrillation): Status: Acute Code(s): I48.0 - Paroxysmal atrial fibrillation Plan the patient is an elderly male with a long history of schizoaffective disorder bipolar type, with several admissions into the hospital since his 1st psychotic break at the age of 15, readmitted due to aggressive behavior. It is unclear what was the trigger of the recent outburst of violence. Plan 1. Continue same medications. 2. Gather collateral information 3. Blood work with Clozaril level to be done on Wednesday. I spent minutes with the patient and/or on the patient floor today, greater than?50% of which was spent counseling/coordinating care. Reason for contiued inpatient stay Substantial Risk for: inability to function and rapid decompensation
[2021-10-19] MEDS: Artificial Tears 15 ML DROPS 2 DROP EYE-BOTH ×2 (17:07→20:09)
[2021-10-19] MEDS: carvediloL 12.5 MG TABLET PO (20:01)
[2021-10-19] MEDS: Apixaban 5 MG TABLET PO (20:01)
[2021-10-19] MEDS: cloZAPine 100 MG TABLET 150 MG PO (20:02)
[2021-10-19] MEDS: Lithium Carbonate ER 450 MG TABLET.ER PO (20:03)
[2021-10-19] MEDS: LORazepam 0.5 MG TABLET PO (20:03)
[2021-10-19] MEDS: traZODone HCL 100 MG TABLET PO (20:03)
[2021-10-19] MEDS: Nystatin/Triamcinolone Cream 15 GM TUBE 1 APPL TOPICAL (20:10)
[2021-10-19 20:47] VITALS: BP 160/83; PULSE 99; RESP 18; TEMP 36.6; O2SAT 97
[2021-10-20 08:00] VITALS: BP 127/69; PULSE 89; RESP 18; TEMP 36.4; O2SAT 96
[2021-10-20] MEDS: Apixaban 5 MG TABLET PO ×2 (08:19→20:15)
[2021-10-20] MEDS: cloZAPine 25 MG TABLET 75 MG PO ×2 (08:19→13:37)
[2021-10-20] MEDS: Lithium Carbonate ER 450 MG TABLET.ER PO ×2 (08:20→20:14)
[2021-10-20] MEDS: Levothyroxine Sodium 175 MCG TABLET PO (08:20)
[2021-10-20] MEDS: Nystatin/Triamcinolone Cream 15 GM TUBE 1 APPL TOPICAL ×2 (08:20→20:16)
[2021-10-20] MEDS: Artificial Tears 15 ML DROPS 2 DROP EYE-BOTH ×4 (08:20→20:15)
[2021-10-20] MEDS: carvediloL 12.5 MG TABLET PO ×2 (08:20→20:14)
[2021-10-20] MEDS: LORazepam 0.5 MG TABLET PO (11:37)
--- NOTE | 2021-10-20 16:41 | HO.PSYCHPN ---
Subjective Subjective Date of Service: 10/20/21 Reason For Visit: Psychosis Interim History: pt found resting late morning in his bed. he states to MD that eh has blood cancer. this data analyst report writer is not aware of any similar diagnosis for this patient and informs patient such. pt is then generally tangential and difficult to follow. he has no requests for MD. per staff, pt visible yesterday miracle. disorganized. pacing, self-dialoguing. slept about 7 hours. got ativan 0.5 mg with good effect for agitation. refused synthroid this morning. Mental Status Exam Mental Status Exam Narrative: dressed in hospital attire, disheveled, lying in bed. no PMA/PMR. cooperative with interview. speech decr in amount, incr in rate, somewhat dysarthric. thoughts disorganized. affect constricted. mood unknown. no SI/HI/AVH expressed. Diagnostics Vital Signs (24Hr): Vital Signs - 24 hr 10/19/21 20:47 10/20/21 08:00 Temperature 97.8 F 97.6 F Pulse Rate 99 89 Respiratory Rate 18 18 Blood Pressure 160/83 H 127/69 Pulse Oximetry 97 96 BMI result Body Mass Index 30.4 Labs Results: 10/15/21 19:22 10/15/21 19:22 Imaging Radiology Impressions: ITS Impressions Head CT 10/15/21 21:29 IMPRESSION: No acute intracranial pathology. Medications Medications Current Medications Acetaminophen (Acetaminophen 325 Mg Tablet) 650 mg PO Q6H PRN PRN Reason: Headache/Pain Mild Scale (1-3) Last Admin: 10/18/21 20:22 Dose: 650 mg Documented by: Al Hydroxide/Mg Hydroxide (Magnesium Hydrox/Alum Hydrox 30 Ml Oral.Susp) 30 ml PO Q6H PRN PRN Reason: Heartburn/Nausea Apixaban (Apixaban 5 Mg Tablet) 5 mg PO BID [facility] Last Admin: 10/20/21 08:19 Dose: 5 mg Documented by: Artificial Tears (Artificial Tears 15 Ml Drops) 2 drop EYE-BOTH QID [facility] Last Admin: 10/20/21 16:13 Dose: 2 drop Documented by: Carvedilol (Carvedilol 12.5 Mg Tablet) 12.5 mg PO BID [facility]; Protocol Last Admin: 10/20/21 08:20 Dose: 12.5 mg Documented by: Clozapine (Clozapine 25 Mg Tablet) 75 mg PO BID@0900,1300 [facility] Last Admin: 10/20/21 13:37 Dose: 75 mg Documented by: Clozapine (Clozapine 100 Mg Tablet) 150 mg PO BEDTIME [facility] Last Admin: 10/19/21 20:02 Dose: 150 mg Documented by: Levothyroxine Sodium (Levothyroxine Sodium 175 Mcg Tablet) 175 mcg PO DAILY@0600 [facility] Last Admin: 10/20/21 08:20 Dose: 175 mcg Documented by: [place] Carbonate ([place] Carbonate Er 450 Mg Tablet.Er) 450 mg PO BID [facility] Last Admin: 10/20/21 08:20 Dose: 450 mg Documented by: Lorazepam (Lorazepam 0.5 Mg Tablet) 0.5 mg PO BID PRN PRN Reason: Anxiety Last Admin: 10/20/21 11:37 Dose: 0.5 mg Documented by: Magnesium Hydroxide (Milk Of Magnesia 30 Ml Oral.Susp) 30 ml PO DAILY PRN PRN Reason: Constipation Nystatin/Triamcinolone Acetonide (Nystatin/Triamcinolone Cream 15 Gm Tube) 1 appl TOPICAL BID [facility]; Protocol Last Admin: 10/20/21 08:20 Dose: 1 appl Documented by: Trazodone HCl (Trazodone Hcl 25 Mg Halftab) 25 mg PO Q12H PRN PRN Reason: Agitation Trazodone HCl (Trazodone Hcl 100 Mg Tablet) 100 mg PO BEDTIME [facility] Last Admin: 10/19/21 20:03 Dose: 100 mg Documented by: Trazodone HCl (Trazodone Hcl 50 Mg Tablet) 50 mg PO BEDTIME PRN PRN Reason: Insomnia Allergies Allergies Allergy/AdvReac Type Severity Reaction Status Date / Time house dust Allergy Intermediate watery eyes Verified 08/20/21 11:33 adhesive Allergy Unknown Unknown Verified 10/15/21 14:32 fenofibrate Allergy Unknown Unknown Verified 10/15/21 14:32 Sulfa (Sulfonamide Allergy Unknown unknown Verified 10/15/21 14:32 Antibiotics) tomato Allergy Unknown Unknown Verified 10/15/21 14:32 Yeast Allergy Unknown Unknown Verified 10/15/21 14:32 zolpidem [From Ambien] Allergy Unknown Unknown Verified 10/15/21 14:32 lactose AdvReac Unknown Unknown Verified 10/15/21 14:32 Assessment & Plan Assessment & Plan (1) Schizoaffective disorder, bipolar type: Status: Acute Code(s): F25.0 - Schizoaffective disorder, bipolar type (2) PAF (paroxysmal atrial fibrillation): Status: Acute Code(s): I48.0 - Paroxysmal atrial fibrillation Plan the patient is an elderly male with a long history of schizoaffective disorder bipolar type, with several admissions into the hospital since his 1st psychotic break at the age of 15, readmitted due to aggressive behavior. It is unclear what was the trigger of the recent outburst of violence. Plan 1. Continue same medications. 2. Gather collateral information 3. Blood work with Clozaril level to be done on Wednesday. I spent minutes with the patient and/or on the patient floor today, greater than?50% of which was spent counseling/coordinating care. Reason for contiued inpatient stay Substantial Risk for: inability to function
[2021-10-20 19:00] VITALS: BP 150/86; PULSE 82; RESP 17; TEMP 37.1; O2SAT 99
[2021-10-20] MEDS: cloZAPine 100 MG TABLET 150 MG PO (20:15)
[2021-10-20] MEDS: traZODone HCL 100 MG TABLET PO (20:15)
--- NOTE | 2021-10-21 | ECG_ITS ---
Test Reason : ECT Blood Pressure : / mmHG Vent. Rate : 082 BPM Atrial Rate : 082 BPM P-R Int : 196 ms QRS Dur : 104 ms QT Int : 408 ms P-R-T Axes : 000 -17 119 degrees QTc Int : 476 ms Normal sinus rhythm Incomplete right bundle branch block Lateral infarct , age undetermined Abnormal ECG When compared with ECG of 15-OCT-2021 21:08, Lateral infarct is now Present - could be related to lead placement Nonspecific T wave abnormality, worse in Inferior leads Nonspecific T wave abnormality, worse in Anterior leads Referred By: Martin Marquis Electronically Signed By:FERNANDO VELEZ
[2021-10-21 06:49] LABS: MANUAL DIFF FLAG NO
[2021-10-21 06:52] LABS: Basophils Percent Auto 0.2 % (0-2); Eosinophils Absolute Auto 0.3 X10*3/uL (0.0-0.4); Hematocrit 36.9 % (42.0-52.0); Hemoglobin 12.1 g/dl (14.0-18.0); Imm Gran Abs Auto 0.05 X10*3/uL (0.00-0.03); Imm Gran Pct Auto 0.6 % (0.0-0.4); Lymphocytes Absolute Auto 1.9 X10*3/uL (1.2-4.9); Lymphocytes Percent Auto 21.9 % (20-40); Mean Corpuscular HGB Conc 32.8 g/dl (31.0-36.0); Mean Corpuscular Hemoglobin 29.1 pg (27.0-33.0); Mean Corpuscular Volume 88.7 fL (80.0-98.0); Mean Platelet Volume 10.3 fL (9.4-12.4); Monocytes Absolute Auto 0.9 X10*3/uL (0.1-1.2); Monocytes Percent Auto 10.6 % (2-11); Neutrophils Absolute Auto 5.6 x10*3/uL (2.0-8.3); Neutrophils Percent Auto 63.7 % (45-73); Platelet Count 295 X10*3/uL (160-400); Red Blood Count 4.16 X10*6/uL (4.60-5.80); Red Cell Distribution Width 13.3 % (11.0-16.0); White Blood Count 8.8 X10*3/uL (4.8-10.8)
[2021-10-21 07:11] LABS: Alanine Aminotransferase 17 U/L (0-40); Albumin Level 3.9 g/dL (3.5-5.0); Alkaline Phosphatase 78 U/L (39-117); Anion Gap 9 (12-20); Aspartate Amino Transferase 14 U/L (5-37); Bilirubin Direct 0.2 mg/dL (0.0-0.5); Bilirubin Total 0.5 mg/dL (0.0-1.0); Blood Urea Nitrogen 12 mg/dL (9-16); Calcium 9.4 mg/dL (8.4-10.2); Carbon Dioxide 26 mmol/L (22-29); Chloride 109 mmol/L (96-108); Creatinine Clr Calc Pharmacy 94.4; Estimated Glomerular Filt Rate > 60; Glucose Random 104 mg/dL (60-115); Potassium 4.1 mmol/L (3.3-5.1); Sodium 140 mmol/L (135-145); Total Protein 6.2 g/dL (6.5-8.0)
[2021-10-21 07:20] VITALS: BP 153/79; PULSE 87; RESP 16; TEMP 37.2; O2SAT 96
[2021-10-21 07:28] LABS: Thyroid Stimulating Hormone 1.12 uIU/mL (0.32-4.0)
[2021-10-21 08:19] LABS: Estimated Average Glucose 105 mg/dL; Hemoglobin A1c % 5.3 %
[2021-10-21 08:21] LABS: Lithium 0.74 mmol/L (0.60-1.20)
[2021-10-21] MEDS: Lithium Carbonate ER 450 MG TABLET.ER PO ×2 (08:38→22:17)
[2021-10-21] MEDS: carvediloL 12.5 MG TABLET PO ×2 (08:38→22:16)
[2021-10-21] MEDS: cloZAPine 25 MG TABLET 75 MG PO ×2 (08:38→12:19)
[2021-10-21] MEDS: Apixaban 5 MG TABLET PO ×2 (08:38→22:18)
[2021-10-21] MEDS: Levothyroxine Sodium 175 MCG TABLET PO (08:43)
[2021-10-21] MEDS: Artificial Tears 15 ML DROPS 2 DROP EYE-BOTH ×3 (08:55→16:09)
[2021-10-21] MEDS: Nystatin/Triamcinolone Cream 15 GM TUBE 1 APPL TOPICAL (08:55)
--- NOTE | 2021-10-21 11:29 | HO.PSYCHPN ---
Subjective Subjective Date of Service: 10/21/21 Reason For Visit: Psychosis Subjective Notes: Conditional Voluntary Interim History: The nursing staff reported the patient remains appropriate and he attends to groups. He can be easily distractible and slightly agitated but he is redirectable with verbal intervention. The social professionals reported that she med over the phone with his son and he wants to have ECT. At this moment, his behavior is baseline. On interview, the patient remains pleasantly confused and delusional but no evidence of aggression or unsafe behaviors at this moment Mental Status Exam Mental Status Exam Patient Appearance: Disheveled Patient Orientation: Person Level of Consciousness: Awake and Appropriate Patient Behavior: Cooperative and Passive Mood Description: Withdrawn and Depressed Affect Description: Labile Patient Cognition Impaired: Yes Ability to Follow Directions: Good Speech Pattern: Garbled and Soft-Spoken Hallucinations: Auditory Delusions: Paranoid Ideation Thought Process: Illogical and Distracted Thought Content: positive for Mcdonald, positive for Perseveration and positive for Incoherent Judgement: Poor Diagnostics Vital Signs (24Hr): Vital Signs - 24 hr 10/20/21 19:00 10/21/21 07:20 Temperature 98.7 F 98.9 F Pulse Rate 82 87 Respiratory Rate 17 16 Blood Pressure 150/86 H 153/79 H Pulse Oximetry 99 96 BMI result Body Mass Index 30.4 Labs Results: 10/21/21 06:36 10/21/21 06:36 Labs: Laboratory Results - last 48 hr 10/21/21 10/21/21 10/21/21 06:36 06:36 06:36 WBC 8.8 RBC 4.16 L Hgb 12.1 L Hct 36.9 L MCV 88.7 MCH 29.1 MCHC 32.8 RDW 13.3 Plt Count 295 MPV 10.3 Immature Gran % (Auto) 0.6 H Neut % (Auto) 63.7 Lymph % (Auto) 21.9 [place] % (Auto) 10.6 Eos % (Auto) 3.0 Baso % (Auto) 0.2 Lymph # (Auto) 1.9 [place] # (Auto) 0.9 Eos # (Auto) 0.3 Baso # (Auto) 0.0 Abs Immat Gran (auto) 0.05 H Absolute Neuts (auto) 5.6 Absolute Nucleated RBC 0.000 Nucleated RBC % (auto) 0.0 Sodium 140 Potassium 4.1 Chloride 109 H Carbon Dioxide 26 Anion Gap 9 L BUN 12 Creatinine 0.83 Estim Creat Clear Calc 94.4 Estimated GFR > 60 Random Glucose 104 D Estimat Average Glucose 105 Hemoglobin A1c % 5.3 Calcium 9.4 Total Bilirubin 0.5 Direct Bilirubin 0.2 AST 14 ALT 17 Alkaline Phosphatase 78 Total Protein 6.2 L Albumin 3.9 TSH 1.12 [place] 10/21/21 06:36 WBC RBC Hgb Hct MCV MCH MCHC RDW Plt Count MPV Immature Gran % (Auto) Neut % (Auto) Lymph % (Auto) [place] % (Auto) Eos % (Auto) Baso % (Auto) Lymph # (Auto) [place] # (Auto) Eos # (Auto) Baso # (Auto) Abs Immat Gran (auto) Absolute Neuts (auto) Absolute Nucleated RBC Nucleated RBC % (auto) Sodium Potassium Chloride Carbon Dioxide Anion Gap BUN Creatinine Estim Creat Clear Calc Estimated GFR Random Glucose Estimat Average Glucose Hemoglobin A1c % Calcium Total Bilirubin Direct Bilirubin AST ALT Alkaline Phosphatase Total Protein Albumin TSH [place] 0.74 Imaging Radiology Impressions: ITS Impressions Head CT 10/15/21 21:29 IMPRESSION: No acute intracranial pathology. Medications Medications Current Medications Acetaminophen (Acetaminophen 325 Mg Tablet) 650 mg PO Q6H PRN PRN Reason: Headache/Pain Mild Scale (1-3) Last Admin: 10/18/21 20:22 Dose: 650 mg Documented by: Al Hydroxide/Mg Hydroxide (Magnesium Hydrox/Alum Hydrox 30 Ml Oral.Susp) 30 ml PO Q6H PRN PRN Reason: Heartburn/Nausea Apixaban (Apixaban 5 Mg Tablet) 5 mg PO BID [facility] Last Admin: 10/21/21 08:38 Dose: 5 mg Documented by: Artificial Tears (Artificial Tears 15 Ml Drops) 2 drop EYE-BOTH QID [facility] Last Admin: 10/21/21 08:55 Dose: 2 drop Documented by: Carvedilol (Carvedilol 12.5 Mg Tablet) 12.5 mg PO BID [facility]; Protocol Last Admin: 10/21/21 08:38 Dose: 12.5 mg Documented by: Clozapine (Clozapine 25 Mg Tablet) 75 mg PO BID@0900,1300 [facility] Last Admin: 10/21/21 08:38 Dose: 75 mg Documented by: Clozapine (Clozapine 100 Mg Tablet) 150 mg PO BEDTIME [facility] Last Admin: 10/20/21 20:15 Dose: 150 mg Documented by: Levothyroxine Sodium (Levothyroxine Sodium 175 Mcg Tablet) 175 mcg PO DAILY@0600 [facility] Last Admin: 10/21/21 08:43 Dose: 175 mcg Documented by: [place] Carbonate ([place] Carbonate Er 450 Mg Tablet.Er) 450 mg PO BID [facility] Last Admin: 10/21/21 08:38 Dose: 450 mg Documented by: Magnesium Hydroxide (Milk Of Magnesia 30 Ml Oral.Susp) 30 ml PO DAILY PRN PRN Reason: Constipation Nystatin/Triamcinolone Acetonide (Nystatin/Triamcinolone Cream 15 Gm Tube) 1 appl TOPICAL BID [facility]; Protocol Last Admin: 10/21/21 08:55 Dose: 1 appl Documented by: Trazodone HCl (Trazodone Hcl 25 Mg Halftab) 25 mg PO Q12H PRN PRN Reason: Agitation Trazodone HCl (Trazodone Hcl 100 Mg Tablet) 100 mg PO BEDTIME [facility] Last Admin: 10/20/21 20:15 Dose: 100 mg Documented by: Trazodone HCl (Trazodone Hcl 50 Mg Tablet) 50 mg PO BEDTIME PRN PRN Reason: Insomnia Allergies Allergies Allergy/AdvReac Type Severity Reaction Status Date / Time house dust Allergy Intermediate watery eyes Verified 08/20/21 11:33 adhesive Allergy Unknown Unknown Verified 10/15/21 14:32 fenofibrate Allergy Unknown Unknown Verified 10/15/21 14:32 Sulfa (Sulfonamide Allergy Unknown unknown Verified 10/15/21 14:32 Antibiotics) tomato Allergy Unknown Unknown Verified 10/15/21 14:32 Yeast Allergy Unknown Unknown Verified 10/15/21 14:32 zolpidem [From Ambien] Allergy Unknown Unknown Verified 10/15/21 14:32 lactose AdvReac Unknown Unknown Verified 10/15/21 14:32 Assessment & Plan Assessment & Plan (1) Schizoaffective disorder, bipolar type: Status: Acute Code(s): F25.0 - Schizoaffective disorder, bipolar type (2) PAF (paroxysmal atrial fibrillation): Status: Acute Code(s): I48.0 - Paroxysmal atrial fibrillation Plan the patient is an elderly male with a long history of schizoaffective disorder bipolar type, with several admissions into the hospital since his 1st psychotic break at the age of 15, readmitted due to aggressive behavior. It is unclear what was the trigger of the recent outburst of violence. Plan 1. Continue same medications. 2. Gather collateral information 3. Blood work with Clozaril level to be done on Wednesday. We will follow the Clozaril level, lithium level and other tests. I spent minutes with the patient and/or on the patient floor today, greater than?50% of which was spent counseling/coordinating care. Reason for contiued inpatient stay Substantial Risk for: inability to function, rapid decompensation and med/psych decompensation
--- NOTE | 2021-10-21 16:15 | P.CNHOSGPS_ITS ---
History of Present Illness Data of Consult Service Date: 10/21/21 Requesting physician: Martin CUELLAR Reason for consult: ECT clearance Asked to see 66-year-old male with a history of schizophrenic for preprocedure clearance for ECT. There are no acute medical issues at this time Review of Systems Review of Systems: Denies chest pain Denies shortness of breath Denies nausea vomiting diarrhea PMFSH Medical History Atrial fibrillation History of ETT Hypertension Hypothyroidism Obstructive sleep apnea PAF (paroxysmal atrial fibrillation) Schizoaffective disorder, bipolar type Family History Mother Breast cancer Father Coronary artery disease Brother Coronary artery disease COPD (chronic obstructive pulmonary disease) Bone cancer Colon polyps Surgical History H/O arthroscopic knee surgery H/O congenital atrial septal defect (ASD) repair Hx laparoscopic cholecystectomy Social History Household Members: Other Household Members Other:: SNF Housing: Skilled Nursing Are you a primary memory care director to a significant other at home: No Do you presently have visiting nurse or other home services: Yes Patient Tobacco Use Status: Never used Tobacco e-Cigarette/Vaping Use: Never Used Second Hand Smoke Exposure: No Use of substances other than those prescribed or required for medical reasons: No Currently Displaying Signs/Symptoms of Drug Intoxication Withdrawal: No Have you been hit, kicked, punched, or otherwise hurt by someone within the past year? If so, by whom?: No Do you feel safe in your current relationship?: No Current Relationship Is there a partner from a previous relationship who is making you feel unsafe now?: No Are you made to feel afraid or neglected: No Spiritual Healthcare Practices: Patient declines. [employer] [facility] Practices: Patient declines. Cultural Healthcare Practices: Patient declines. Advance Directives: No Advance Directives Information Provided: Yes Healthcare Proxy: Yes Guardian: No Do you have thoughts of harming others: None Do you have a plan to hurt others: No Plan Recently lost weight without trying: No Nutrition Risks: No Nutritional Risk Poor oral hygiene: Yes service: No Current occupational status: disabled Sexual orientation: Straight/Heterosexual Meds Allergies Allergy/AdvReac Type Severity Reaction Status Date / Time house dust Allergy Intermediate watery eyes Verified 08/20/21 11:33 adhesive Allergy Unknown Unknown Verified 10/15/21 14:32 fenofibrate Allergy Unknown Unknown Verified 10/15/21 14:32 Sulfa (Sulfonamide Allergy Unknown unknown Verified 10/15/21 14:32 Antibiotics) tomato Allergy Unknown Unknown Verified 10/15/21 14:32 Yeast Allergy Unknown Unknown Verified 10/15/21 14:32 zolpidem [From Ambien] Allergy Unknown Unknown Verified 10/15/21 14:32 lactose AdvReac Unknown Unknown Verified 10/15/21 14:32 Active Medications: Current Medications Acetaminophen (Acetaminophen 325 Mg Tablet) 650 mg PO Q6H PRN PRN Reason: Headache/Pain Mild Scale (1-3) Last Admin: 10/18/21 20:22 Dose: 650 mg Documented by: Al Hydroxide/Mg Hydroxide (Magnesium Hydrox/Alum Hydrox 30 Ml Oral.Susp) 30 ml PO Q6H PRN PRN Reason: Heartburn/Nausea Apixaban (Apixaban 5 Mg Tablet) 5 mg PO BID [facility] Last Admin: 10/21/21 08:38 Dose: 5 mg Documented by: Artificial Tears (Artificial Tears 15 Ml Drops) 2 drop EYE-BOTH QID [facility] Last Admin: 10/21/21 16:09 Dose: 2 drop Documented by: Carvedilol (Carvedilol 12.5 Mg Tablet) 12.5 mg PO BID [facility]; Protocol Last Admin: 10/21/21 08:38 Dose: 12.5 mg Documented by: Clozapine (Clozapine 25 Mg Tablet) 75 mg PO BID@0900,1300 [facility] Last Admin: 10/21/21 12:19 Dose: 75 mg Documented by: Clozapine (Clozapine 100 Mg Tablet) 150 mg PO BEDTIME [facility] Last Admin: 10/20/21 20:15 Dose: 150 mg Documented by: Levothyroxine Sodium (Levothyroxine Sodium 175 Mcg Tablet) 175 mcg PO DAILY@0600 [facility] Last Admin: 10/21/21 08:43 Dose: 175 mcg Documented by: [place] Carbonate ([place] Carbonate Er 450 Mg Tablet.Er) 450 mg PO BID [facility] Last Admin: 10/21/21 08:38 Dose: 450 mg Documented by: Magnesium Hydroxide (Milk Of Magnesia 30 Ml Oral.Susp) 30 ml PO DAILY PRN PRN Reason: Constipation Nystatin/Triamcinolone Acetonide (Nystatin/Triamcinolone Cream 15 Gm Tube) 1 appl TOPICAL BID [facility]; Protocol Last Admin: 10/21/21 08:55 Dose: 1 appl Documented by: Trazodone HCl (Trazodone Hcl 25 Mg Halftab) 25 mg PO Q12H PRN PRN Reason: Agitation Trazodone HCl (Trazodone Hcl 100 Mg Tablet) 100 mg PO BEDTIME [facility] Last Admin: 10/20/21 20:15 Dose: 100 mg Documented by: Trazodone HCl (Trazodone Hcl 50 Mg Tablet) 50 mg PO BEDTIME PRN PRN Reason: Insomnia Home Medications Medication Instructions Recorded Confirmed Last Taken Type apixaban 5 mg tablet (Eliquis) 1 tab PO BID 08/25/21 10/15/21 10/15/21 History carvedilol 12.5 mg tablet 1 tab PO BID 08/25/21 10/15/21 10/15/21 History clozapine 50 mg tablet 50 mg PO BID@0900,1300 08/25/21 10/15/21 10/15/21 History levothyroxine 175 mcg tablet 1 tab PO DAILY 08/25/21 10/15/21 10/15/21 History trazodone 50 mg tablet 50 mg PO BEDTIME PRN 08/25/21 10/15/21 Unknown History clozapine 25 mg tablet 25 mg PO BID@0900,1300 10/15/21 10/15/21 10/15/21 History clozapine 50 mg tablet 150 mg PO BEDTIME 10/15/21 10/15/21 10/14/21 History lithium carbonate 450 mg 1 tab PO BID 10/15/21 10/15/21 10/15/21 History tablet,extended release lorazepam 0.5 mg tablet 0.5 mg PO BID PRN 10/15/21 10/15/21 10/15/21 History trazodone 50 mg tablet 2 tab PO BEDTIME 10/15/21 10/15/21 10/14/21 History trazodone 50 mg tablet 25 mg PO Q12H PRN 10/15/21 10/15/21 Unknown History Results Labs CBC and Chem 7: 10/21/21 06:36 10/21/21 06:36 Labs: Laboratory Results - last 24 hr 10/21/21 10/21/2122 06:36 06:36 06:36 MCV 88.7 MCH 29.1 MCHC 32.8 RDW 13.3 Plt Count 295 MPV 10.3 Immature Gran % (Auto) 0.6 H Neut % (Auto) 63.7 Lymph % (Auto) 21.9 [place] % (Auto) 10.6 Eos % (Auto) 3.0 Baso % (Auto) 0.2 Lymph # (Auto) 1.9 [place] # (Auto) 0.9 Eos # (Auto) 0.3 Baso # (Auto) 0.0 Abs Immat Gran (auto) 0.05 H Absolute Neuts (auto) 5.6 Absolute Nucleated RBC 0.000 Nucleated RBC % (auto) 0.0 Anion Gap 9 L Estim Creat Clear Calc 94.4 Estimated GFR > 60 Random Glucose 104 D Estimat Average Glucose 105 Hemoglobin A1c % 5.3 Calcium 9.4 Total Bilirubin 0.5 Direct Bilirubin 0.2 AST 14 ALT 17 Alkaline Phosphatase 78 Total Protein 6.2 L Albumin 3.9 TSH 1.12 [place] 10/21/21 06:36 MCV MCH MCHC RDW Plt Count MPV Immature Gran % (Auto) Neut % (Auto) Lymph % (Auto) [place] % (Auto) Eos % (Auto) Baso % (Auto) Lymph # (Auto) [place] # (Auto) Eos # (Auto) Baso # (Auto) Abs Immat Gran (auto) Absolute Neuts (auto) Absolute Nucleated RBC Nucleated RBC % (auto) Anion Gap Estim Creat Clear Calc Estimated GFR Random Glucose Estimat Average Glucose Hemoglobin A1c % Calcium Total Bilirubin Direct Bilirubin AST ALT Alkaline Phosphatase Total Protein Albumin TSH [place] 0.74 Assessment and Plan (1) Schizoaffective disorder, bipolar type: Status: Acute Plan Mr. Ivan avila is a moderate but acceptable cardiovascular risk for planned EC TMA proceed as per psych thank you for the consult Physical Exam Vital Signs: Last Vital Signs Temp 98.9 F 10/21/21 07:20 Pulse 87 10/21/21 07:20 Resp 16 10/21/21 07:20 BP 153/79 H 10/21/21 07:20 Pulse Ox 96 10/21/21 07:20 BMI result Body Mass Index 30.4 Const Other: Awake alert oriented x3 no acute distress Resp Other: Clear to auscultation bilaterally no rales rhonchi wheezes Cardio Other: No S4; positive S1-S2; no S3 murmurs of gallops GI Other: Soft nontender nondistended with normoactive bowel sounds Neuro Other: Cranial nerves 2-12 grossly intact as tested nurse 5/5 all extremities sensations intact cognition appropriate Cranial nerves: Yes CN's II-XII intact bilaterally
[2021-10-21] MEDS: traZODone HCL 100 MG TABLET PO (22:17)
[2021-10-21] MEDS: cloZAPine 100 MG TABLET 150 MG PO (22:17)
[2021-10-22] MEDS: Levothyroxine Sodium 175 MCG TABLET PO (05:42)
[2021-10-22 06:53] LABS: Neut%MD 65.7 %; Neutrophils Absolute Auto 5.5 x10*3/uL (2.0-8.3); WBCANC 8.3 X10*3/uL
[2021-10-22 08:00] VITALS: BP 142/65; PULSE 81; RESP 18; TEMP 37.1; O2SAT 98
[2021-10-22] MEDS: Artificial Tears 15 ML DROPS 2 DROP EYE-BOTH ×3 (08:28→17:01)
[2021-10-22] MEDS: Apixaban 5 MG TABLET PO ×2 (08:29→20:16)
[2021-10-22] MEDS: cloZAPine 25 MG TABLET 75 MG PO ×2 (08:29→12:44)
[2021-10-22] MEDS: Nystatin/Triamcinolone Cream 15 GM TUBE 1 APPL TOPICAL (08:29)
[2021-10-22] MEDS: carvediloL 12.5 MG TABLET PO ×2 (08:29→20:15)
[2021-10-22] MEDS: Lithium Carbonate ER 450 MG TABLET.ER PO ×2 (08:29→20:16)
--- NOTE | 2021-10-22 13:28 | P.PNPSI_ITS ---
Subjective Subjective Date of Service: 10/22/21 Reason For Visit: Psychosis Subjective Notes: Conditional Voluntary Interim History: The nursing staff reported the patient attends to some groups, he has been seen tearful at times with level mood. Yesterday, we had a meeting with his son who reported that he is not at his baseline and historically he responded very well to ECT. We discussed with him the risks benefits and side effects and the possibility of worsening his cognition. Today, we talked with the patient about the possibility of ECT and Mental Status Exam Mental Status Exam Patient Appearance: Disheveled Patient Orientation: Person Level of Consciousness: Awake Patient Behavior: Guarded, Passive and Suspicious Mood Description: Labile Affect Description: Constricted Patient Cognition Impaired: Yes Ability to Follow Directions: Good Speech Pattern: Clear Memory Description: Intact Hallucinations: Auditory Delusions: Paranoid Ideation Thought Content: positive for Circumstantial Judgement: Fair Diagnostics Vital Signs (24Hr): Vital Signs - 24 hr 10/22/21 08:00 Temperature 98.8 F Pulse Rate 81 Respiratory Rate 18 Blood Pressure 142/65 H Pulse Oximetry 98 BMI result Body Mass Index 30.4 Labs Results: 10/21/21 06:36 10/21/21 06:36 Labs: Laboratory Results - last 48 hr 10/21/21 10/21/21 10/21/21 06:36 06:36 06:36 WBC 8.8 RBC 4.16 L Hgb 12.1 L Hct 36.9 L MCV 88.7 MCH 29.1 MCHC 32.8 RDW 13.3 Plt Count 295 MPV 10.3 Immature Gran % (Auto) 0.6 H Neut % (Auto) 63.7 Lymph % (Auto) 21.9 [place] % (Auto) 10.6 Eos % (Auto) 3.0 Baso % (Auto) 0.2 Lymph # (Auto) 1.9 [place] # (Auto) 0.9 Eos # (Auto) 0.3 Baso # (Auto) 0.0 Abs Immat Gran (auto) 0.05 H Absolute Neuts (auto) 5.6 Absolute Nucleated RBC 0.000 Nucleated RBC % (auto) 0.0 Sodium 140 Potassium 4.1 Chloride 109 H Carbon Dioxide 26 Anion Gap 9 L BUN 12 Creatinine 0.83 Estim Creat Clear Calc 94.4 Estimated GFR > 60 Random Glucose 104 D Estimat Average Glucose 105 Hemoglobin A1c % 5.3 Calcium 9.4 Total Bilirubin 0.5 Direct Bilirubin 0.2 AST 14 ALT 17 Alkaline Phosphatase 78 Total Protein 6.2 L Albumin 3.9 TSH 1.12 [place] 10/21/21 10/22/21 06:36 06:34 WBC RBC Hgb Hct MCV MCH MCHC RDW Plt Count MPV Immature Gran % (Auto) Neut % (Auto) Lymph % (Auto) [place] % (Auto) Eos % (Auto) Baso % (Auto) Lymph # (Auto) [place] # (Auto) Eos # (Auto) Baso # (Auto) Abs Immat Gran (auto) Absolute Neuts (auto) 5.5 Absolute Nucleated RBC Nucleated RBC % (auto) Sodium Potassium Chloride Carbon Dioxide Anion Gap BUN Creatinine Estim Creat Clear Calc Estimated GFR Random Glucose Estimat Average Glucose Hemoglobin A1c % Calcium Total Bilirubin Direct Bilirubin AST ALT Alkaline Phosphatase Total Protein Albumin TSH [place] 0.74 Imaging Radiology Impressions: ITS Impressions Head CT 10/15/21 21:29 IMPRESSION: No acute intracranial pathology. Medications Medications Current Medications Acetaminophen (Acetaminophen 325 Mg Tablet) 650 mg PO Q6H PRN PRN Reason: Headache/Pain Mild Scale (1-3) Last Admin: 10/18/21 20:22 Dose: 650 mg Documented by: Al Hydroxide/Mg Hydroxide (Magnesium Hydrox/Alum Hydrox 30 Ml Oral.Susp) 30 ml PO Q6H PRN PRN Reason: Heartburn/Nausea Apixaban (Apixaban 5 Mg Tablet) 5 mg PO BID [facility] Last Admin: 10/22/21 08:29 Dose: 5 mg Documented by: Artificial Tears (Artificial Tears 15 Ml Drops) 2 drop EYE-BOTH QID [facility] Last Admin: 10/22/21 12:44 Dose: 2 drop Documented by: Carvedilol (Carvedilol 12.5 Mg Tablet) 12.5 mg PO BID [facility]; Protocol Last Admin: 10/22/21 08:29 Dose: 12.5 mg Documented by: Clozapine (Clozapine 25 Mg Tablet) 75 mg PO BID@0900,1300 [facility] Last Admin: 10/22/21 12:44 Dose: 75 mg Documented by: Clozapine (Clozapine 100 Mg Tablet) 150 mg PO BEDTIME [facility] Last Admin: 10/21/21 22:17 Dose: 150 mg Documented by: Levothyroxine Sodium (Levothyroxine Sodium 175 Mcg Tablet) 175 mcg PO DAILY@0600 [facility] Last Admin: 10/22/21 05:42 Dose: 175 mcg Documented by: [place] Carbonate ([place] Carbonate Er 450 Mg Tablet.Er) 450 mg PO BID [facility] Last Admin: 10/22/21 08:29 Dose: 450 mg Documented by: Magnesium Hydroxide (Milk Of Magnesia 30 Ml Oral.Susp) 30 ml PO DAILY PRN PRN Reason: Constipation Nystatin/Triamcinolone Acetonide (Nystatin/Triamcinolone Cream 15 Gm Tube) 1 appl TOPICAL BID [facility]; Protocol Last Admin: 10/22/21 08:29 Dose: 1 appl Documented by: Trazodone HCl (Trazodone Hcl 25 Mg Halftab) 25 mg PO Q12H PRN PRN Reason: Agitation Trazodone HCl (Trazodone Hcl 100 Mg Tablet) 100 mg PO BEDTIME [facility] Last Admin: 10/21/21 22:17 Dose: 100 mg Documented by: Trazodone HCl (Trazodone Hcl 50 Mg Tablet) 50 mg PO BEDTIME PRN PRN Reason: Insomnia Allergies Allergies Allergy/AdvReac Type Severity Reaction Status Date / Time house dust Allergy Intermediate watery eyes Verified 08/20/21 11:33 adhesive Allergy Unknown Unknown Verified 10/15/21 14:32 fenofibrate Allergy Unknown Unknown Verified 10/15/21 14:32 Sulfa (Sulfonamide Allergy Unknown unknown Verified 10/15/21 14:32 Antibiotics) tomato Allergy Unknown Unknown Verified 10/15/21 14:32 Yeast Allergy Unknown Unknown Verified 10/15/21 14:32 zolpidem [From Ambien] Allergy Unknown Unknown Verified 10/15/21 14:32 lactose AdvReac Unknown Unknown Verified 10/15/21 14:32 Assessment & Plan Assessment & Plan (1) Schizoaffective disorder, bipolar type: Status: Acute Code(s): F25.0 - Schizoaffective disorder, bipolar type Plan The patient is a 66-year-old male with a long history of schizoaffective disorder bipolar type, readmitted after an episode of disorganization and psychosis. Historically, he has responded to ECT but in the last years he have a cognitive deterioration. Plan 1. Continue same medications 2. ECT was offered but the patient refused I spent minutes with the patient and/or on the patient floor today, greater than?50% of which was spent counseling/coordinating care. Reason for contiued inpatient stay Substantial Risk for: inability to function, rapid decompensation and med/psych decompensation
--- NOTE | 2021-10-22 16:01 | HO.PM.IMCN ---
History of Present Illness Data of Consult Service Date: 10/22/21 Requesting physician: Martin Marquis Primary Care Provider: Unknown Physician HPI Reason for consult: ECT risk stratification 66 year old man with hx of afib, hypothyroidism admitted to [facility]. He is scheduled for ECT therefore medical consultation was placed. He has no acute medical complaints. vital signs are stable. He is walking in the unit freely. Review of Systems Review of Systems: Denies any recent fever chills or decrease in appetite respiratory denies any shortness of breath coverage production cardiovascular denies chest pain gastrointestinal denies any dysphagia abdominal pain nausea vomiting or diarrhea genitourinary denies any dysuria frequency or hematuria musculoskeletal denies any joint pain or swelling neuropsych denies any weakness or seizures all other systems reviewed are negative [facility] Medical History Atrial fibrillation History of ETT Hypertension Hypothyroidism Obstructive sleep apnea PAF (paroxysmal atrial fibrillation) Schizoaffective disorder, bipolar type Family History Mother Breast cancer Father Coronary artery disease Brother Coronary artery disease COPD (chronic obstructive pulmonary disease) Bone cancer Colon polyps Surgical History H/O arthroscopic knee surgery H/O congenital atrial septal defect (ASD) repair Hx laparoscopic cholecystectomy Social History Household Members: Other Household Members Other:: SNF Housing: Skilled Nursing Are you a primary childcare teacher to a significant other at home: No Do you presently have visiting nurse or other home services: Yes Patient Tobacco Use Status: Never used Tobacco e-Cigarette/Vaping Use: Never Used Second Hand Smoke Exposure: No Use of substances other than those prescribed or required for medical reasons: No Currently Displaying Signs/Symptoms of Drug Intoxication Withdrawal: No Have you been hit, kicked, punched, or otherwise hurt by someone within the past year? If so, by whom?: No Do you feel safe in your current relationship?: No Current Relationship Is there a partner from a previous relationship who is making you feel unsafe now?: No Are you made to feel afraid or neglected: No Spiritual Healthcare Practices: Patient declines. [employer] Healthcare Practices: Patient declines. Cultural Healthcare Practices: Patient declines. Advance Directives: No Advance Directives Information Provided: Yes Healthcare Proxy: Yes Guardian: No Do you have thoughts of harming others: None Do you have a plan to hurt others: No Plan Recently lost weight without trying: No Nutrition Risks: No Nutritional Risk Poor oral hygiene: Yes service: No Current occupational status: disabled Sexual orientation: Straight/Heterosexual Meds Allergies Allergy/AdvReac Type Severity Reaction Status Date / Time house dust Allergy Intermediate watery eyes Verified 08/20/21 11:33 adhesive Allergy Unknown Unknown Verified 10/15/21 14:32 fenofibrate Allergy Unknown Unknown Verified 10/15/21 14:32 Sulfa (Sulfonamide Allergy Unknown unknown Verified 10/15/21 14:32 Antibiotics) tomato Allergy Unknown Unknown Verified 10/15/21 14:32 Yeast Allergy Unknown Unknown Verified 10/15/21 14:32 zolpidem [From Ambien] Allergy Unknown Unknown Verified 10/15/21 14:32 lactose AdvReac Unknown Unknown Verified 10/15/21 14:32 Active Medications: Current Medications Acetaminophen (Acetaminophen 325 Mg Tablet) 650 mg PO Q6H PRN PRN Reason: Headache/Pain Mild Scale (1-3) Last Admin: 10/18/21 20:22 Dose: 650 mg Documented by: Al Hydroxide/Mg Hydroxide (Magnesium Hydrox/Alum Hydrox 30 Ml Oral.Susp) 30 ml PO Q6H PRN PRN Reason: Heartburn/Nausea Apixaban (Apixaban 5 Mg Tablet) 5 mg PO BID [facility] Last Admin: 10/22/21 08:29 Dose: 5 mg Documented by: Artificial Tears (Artificial Tears 15 Ml Drops) 2 drop EYE-BOTH QID [facility] Last Admin: 10/22/21 12:44 Dose: 2 drop Documented by: Carvedilol (Carvedilol 12.5 Mg Tablet) 12.5 mg PO BID [facility]; Protocol Last Admin: 10/22/21 08:29 Dose: 12.5 mg Documented by: Clozapine (Clozapine 25 Mg Tablet) 75 mg PO BID@0900,1300 [facility] Last Admin: 10/22/21 12:44 Dose: 75 mg Documented by: Clozapine (Clozapine 100 Mg Tablet) 150 mg PO BEDTIME [facility] Last Admin: 10/21/21 22:17 Dose: 150 mg Documented by: Levothyroxine Sodium (Levothyroxine Sodium 175 Mcg Tablet) 175 mcg PO DAILY@0600 [facility] Last Admin: 10/22/21 05:42 Dose: 175 mcg Documented by: [place] Carbonate ([place] Carbonate Er 450 Mg Tablet.Er) 450 mg PO BID [facility] Last Admin: 10/22/21 08:29 Dose: 450 mg Documented by: Magnesium Hydroxide (Milk Of Magnesia 30 Ml Oral.Susp) 30 ml PO DAILY PRN PRN Reason: Constipation Nystatin/Triamcinolone Acetonide (Nystatin/Triamcinolone Cream 15 Gm Tube) 1 appl TOPICAL BID [facility]; Protocol Last Admin: 10/22/21 08:29 Dose: 1 appl Documented by: Trazodone HCl (Trazodone Hcl 25 Mg Halftab) 25 mg PO Q12H PRN PRN Reason: Agitation Trazodone HCl (Trazodone Hcl 100 Mg Tablet) 100 mg PO BEDTIME [facility] Last Admin: 10/21/21 22:17 Dose: 100 mg Documented by: Trazodone HCl (Trazodone Hcl 50 Mg Tablet) 50 mg PO BEDTIME PRN PRN Reason: Insomnia Home Medications Medication Instructions Recorded Confirmed Last Taken Type apixaban 5 mg tablet (Eliquis) 1 tab PO BID 08/25/21 10/15/21 10/15/21 History carvedilol 12.5 mg tablet 1 tab PO BID 08/25/21 10/15/21 10/15/21 History clozapine 50 mg tablet 50 mg PO BID@0900,1300 08/25/21 10/15/21 10/15/21 History levothyroxine 175 mcg tablet 1 tab PO DAILY 08/25/21 10/15/21 10/15/21 History trazodone 50 mg tablet 50 mg PO BEDTIME PRN 08/25/21 10/15/21 Unknown History clozapine 25 mg tablet 25 mg PO BID@0900,1300 10/15/21 10/15/21 10/15/21 History clozapine 50 mg tablet 150 mg PO BEDTIME 10/15/21 10/15/21 10/14/21 History lithium carbonate 450 mg 1 tab PO BID 10/15/21 10/15/21 10/15/21 History tablet,extended release lorazepam 0.5 mg tablet 0.5 mg PO BID PRN 10/15/21 10/15/21 10/15/21 History trazodone 50 mg tablet 2 tab PO BEDTIME 10/15/21 10/15/21 10/14/21 History trazodone 50 mg tablet 25 mg PO Q12H PRN 10/15/21 10/15/21 Unknown History Physical Exam Vital Signs and Narrative: Vital Signs: Last Vital Signs Temp 98.8 F 10/22/21 08:00 Pulse 81 10/22/21 08:00 Resp 18 10/22/21 08:00 BP 142/65 H 10/22/21 08:00 Pulse Ox 98 10/22/21 08:00 BMI result Body Mass Index 30.4 Appearing in no acute distress lung sounds are clear to auscultation heart regular rate rhythm, clear S1, S2 positive bowel sounds, abdomen is soft, nontender neuro patient is alert x3, no focal deficits cranial nerves 2-12 are intact Results Labs CBC and Chem 7: 10/21/21 06:36 10/21/21 06:36 Labs: Laboratory Results - last 24 hr 10/22/21 06:34 Absolute Neuts (auto) 5.5 Assessment and Plan (1) PAF (paroxysmal atrial fibrillation): Status: Acute Plan 66 year old man admitted to [facility]. Plan is for ECT. Patient has history of ECT. No history of aortic stenosis, asthma, COPD, coronary artery disease, diabetes, hypertension, ICD, anticoagulation, EKG shows QTC 476. He has hx of atrial fibrillation on anticoagulation. No medical contraindications noted at this time for ECT. Afib continue ac and BB Hypothyroidism continue levothyroxine Mental health management as per admitting team
[2021-10-22 18:00] VITALS: BP 163/81; PULSE 89; RESP 16; TEMP 37.4; O2SAT 98
[2021-10-22] MEDS: cloZAPine 100 MG TABLET 150 MG PO (20:14)
[2021-10-22] MEDS: traZODone HCL 100 MG TABLET PO (20:15)
[2021-10-23] MEDS: Levothyroxine Sodium 175 MCG TABLET PO (06:02)
[2021-10-23] MEDS: cloZAPine 25 MG TABLET 75 MG PO ×2 (08:38→12:35)
[2021-10-23] MEDS: Apixaban 5 MG TABLET PO ×2 (08:39→21:21)
[2021-10-23] MEDS: carvediloL 12.5 MG TABLET PO ×2 (08:39→21:21)
[2021-10-23] MEDS: Lithium Carbonate ER 450 MG TABLET.ER PO ×2 (08:39→21:22)
[2021-10-23] MEDS: Artificial Tears 15 ML DROPS 2 DROP EYE-BOTH ×3 (09:32→17:04)
[2021-10-23 11:50] VITALS: BMI 29.9
[2021-10-23] MEDS: Nystatin/Triamcinolone Cream 15 GM TUBE 1 APPL TOPICAL (12:28)
--- NOTE | 2021-10-23 14:35 | P.PNPSI_ITS ---
Subjective Subjective Date of Service: 10/23/21 Reason For Visit: Psychosis Subjective Notes: Conditional Voluntary Interim History: The nursing staff has reported the patient is more irritable than he has refused vital signs today in the morning. On interview, the patient was irritable and he was sad he stated that he is not feeling well and suddenly he become nonsensical with pressured speech. We are still waiting for the Clozaril level. As soon as we have the results the plan will be to titrate up the Clozaril at this moment, he is on 300 mg of Clozaril daily with no side effects. Mental Status Exam Mental Status Exam Patient Appearance: Disheveled Patient Orientation: Person and Situation Level of Consciousness: Awake Patient Behavior: Passive and Suspicious Mood Description: Labile Affect Description: Constricted Patient Cognition Impaired: Yes Ability to Follow Directions: Good Speech Pattern: Clear Hallucinations: None Delusions: Paranoid Ideation and Grandiose Thought Process: Illogical Thought Content: positive for Thought Blocking and positive for Incoherent Judgement: Fair Diagnostics Vital Signs (24Hr): Vital Signs - 24 hr 10/22/21 18:00 Temperature 99.3 F Pulse Rate 89 Respiratory Rate 16 Blood Pressure 163/81 H Pulse Oximetry 98 BMI result Body Mass Index 29.9 Labs Results: 10/21/21 06:36 10/21/21 06:36 Labs: Laboratory Results - last 48 hr 10/22/21 06:34 Absolute Neuts (auto) 5.5 Imaging Radiology Impressions: ITS Impressions Head CT 10/15/21 21:29 IMPRESSION: No acute intracranial pathology. Medications Medications Current Medications Acetaminophen (Acetaminophen 325 Mg Tablet) 650 mg PO Q6H PRN PRN Reason: Headache/Pain Mild Scale (1-3) Last Admin: 10/18/21 20:22 Dose: 650 mg Documented by: Al Hydroxide/Mg Hydroxide (Magnesium Hydrox/Alum Hydrox 30 Ml Oral.Susp) 30 ml PO Q6H PRN PRN Reason: Heartburn/Nausea Apixaban (Apixaban 5 Mg Tablet) 5 mg PO BID [facility] Last Admin: 10/23/21 08:39 Dose: 5 mg Documented by: Artificial Tears (Artificial Tears 15 Ml Drops) 2 drop EYE-BOTH QID [facility] Last Admin: 10/23/21 13:50 Dose: 2 drop Documented by: Carvedilol (Carvedilol 12.5 Mg Tablet) 12.5 mg PO BID [facility]; Protocol Last Admin: 10/23/21 08:39 Dose: 12.5 mg Documented by: Clozapine (Clozapine 25 Mg Tablet) 75 mg PO BID@0900,1300 [facility] Last Admin: 10/23/21 12:35 Dose: 75 mg Documented by: Clozapine (Clozapine 100 Mg Tablet) 150 mg PO BEDTIME [facility] Last Admin: 10/22/21 20:14 Dose: 150 mg Documented by: Levothyroxine Sodium (Levothyroxine Sodium 175 Mcg Tablet) 175 mcg PO DAILY@0600 [facility] Last Admin: 10/23/21 06:02 Dose: 175 mcg Documented by: [place] Carbonate ([place] Carbonate Er 450 Mg Tablet.Er) 450 mg PO BID [facility] Last Admin: 10/23/21 08:39 Dose: 450 mg Documented by: Magnesium Hydroxide (Milk Of Magnesia 30 Ml Oral.Susp) 30 ml PO DAILY PRN PRN Reason: Constipation Nystatin/Triamcinolone Acetonide (Nystatin/Triamcinolone Cream 15 Gm Tube) 1 appl TOPICAL BID [facility]; Protocol Last Admin: 10/23/21 12:28 Dose: 1 appl Documented by: Trazodone HCl (Trazodone Hcl 25 Mg Halftab) 25 mg PO Q12H PRN PRN Reason: Agitation Trazodone HCl (Trazodone Hcl 100 Mg Tablet) 100 mg PO BEDTIME [facility] Last Admin: 10/22/21 20:15 Dose: 100 mg Documented by: Trazodone HCl (Trazodone Hcl 50 Mg Tablet) 50 mg PO BEDTIME PRN PRN Reason: Insomnia Allergies Allergies Allergy/AdvReac Type Severity Reaction Status Date / Time house dust Allergy Intermediate watery eyes Verified 08/20/21 11:33 adhesive Allergy Unknown Unknown Verified 10/15/21 14:32 fenofibrate Allergy Unknown Unknown Verified 10/15/21 14:32 Sulfa (Sulfonamide Allergy Unknown unknown Verified 10/15/21 14:32 Antibiotics) tomato Allergy Unknown Unknown Verified 10/15/21 14:32 Yeast Allergy Unknown Unknown Verified 10/15/21 14:32 zolpidem [From Ambien] Allergy Unknown Unknown Verified 10/15/21 14:32 lactose AdvReac Unknown Unknown Verified 10/15/21 14:32 Assessment & Plan Assessment & Plan (1) PAF (paroxysmal atrial fibrillation): Status: Acute Code(s): I48.0 - Paroxysmal atrial fibrillation Plan 66 year old man admitted to [facility], with a long history of schizoaffective disorder bipolar type on Clozaril and lithium. He was admitted for exacerbation of aggressive behavior. Plan 1. Continue Clozaril 75 mg p.o. b.i.d. and 150 mg p.o. q.h.s.. 2. Continue with lithium since he is on a therapeutic level. 3. Since the patient is more lab violent dysphoric we will start Lamictal 25 mg p.o. q.a.m. I spent minutes with the patient and/or on the patient floor today, greater than?50% of which was spent counseling/coordinating care. Reason for contiued inpatient stay Substantial Risk for: inability to function, rapid decompensation and med/psych decompensation
[2021-10-23] MEDS: traZODone HCL 100 MG TABLET PO (21:22)
[2021-10-23] MEDS: cloZAPine 100 MG TABLET 150 MG PO (21:30)
[2021-10-24] MEDS: Levothyroxine Sodium 175 MCG TABLET PO (05:39)
[2021-10-24 06:00] VITALS: BP 150/82; PULSE 86; RESP 16; TEMP 37.2; O2SAT 98
[2021-10-24] MEDS: Lithium Carbonate ER 450 MG TABLET.ER PO ×2 (09:40→22:29)
[2021-10-24] MEDS: Nystatin/Triamcinolone Cream 15 GM TUBE 1 APPL TOPICAL (09:40)
[2021-10-24] MEDS: Artificial Tears 15 ML DROPS 2 DROP EYE-BOTH ×2 (09:40→18:21)
[2021-10-24] MEDS: Apixaban 5 MG TABLET PO ×2 (09:41→22:29)
[2021-10-24] MEDS: lamoTRIgine 25 MG TABLET PO (09:41)
[2021-10-24] MEDS: carvediloL 12.5 MG TABLET PO ×2 (09:41→22:28)
[2021-10-24] MEDS: cloZAPine 25 MG TABLET 75 MG PO (09:41)
--- NOTE | 2021-10-24 15:15 | P.PNPSI_ITS ---
Subjective Subjective Date of Service: 10/24/21 Reason For Visit: Psychosis Subjective Notes: Conditional Voluntary Interim History: The nursing staff reported that the patient has been uncooperative with vital signs today in the morning he looks more agitated and angry. On interview the patient was very delusions if talking about the statue of [place] and then suddenly after lunch, he threw his tray in the floor. I offer him p.o. medications but he went to his room and was more common. We are still waiting from Clozaril levels, the lab results are still pending. The plan is to increase Clozaril accordingly to blood levels. He still anxious, dysphoric and irritable so we will increase Lamictal up to 25 mg p.o. b.i.d. Mental Status Exam Mental Status Exam Patient Appearance: Disheveled Patient Orientation: Person and Situation Level of Consciousness: Alert Patient Behavior: Guarded, Aggressive and Resistive to Care Mood Description: Labile Affect Description: Constricted Patient Cognition Impaired: Yes Ability to Follow Directions: Fair Speech Pattern: Clear Hallucinations: Auditory Delusions: Paranoid Ideation and Grandiose Thought Process: Racing and Illogical Thought Content: positive for Poverty of Content and positive for Loose Associations Judgement: Poor Diagnostics Vital Signs (24Hr): Vital Signs - 24 hr 10/24/21 06:00 Temperature 98.9 F Pulse Rate 86 Respiratory Rate 16 Blood Pressure 150/82 H Pulse Oximetry 98 BMI result Body Mass Index 29.9 Labs Results: 10/21/21 06:36 10/21/21 06:36 Imaging Radiology Impressions: ITS Impressions Head CT 10/15/21 21:29 IMPRESSION: No acute intracranial pathology. Medications Medications Current Medications Acetaminophen (Acetaminophen 325 Mg Tablet) 650 mg PO Q6H PRN PRN Reason: Headache/Pain Mild Scale (1-3) Last Admin: 10/18/21 20:22 Dose: 650 mg Documented by: Al Hydroxide/Mg Hydroxide (Magnesium Hydrox/Alum Hydrox 30 Ml Oral.Susp) 30 ml PO Q6H PRN PRN Reason: Heartburn/Nausea Apixaban (Apixaban 5 Mg Tablet) 5 mg PO BID [facility] Last Admin: 10/24/21 09:41 Dose: 5 mg Documented by: Artificial Tears (Artificial Tears 15 Ml Drops) 2 drop EYE-BOTH QID [facility] Last Admin: 10/24/21 14:31 Dose: Not Given Documented by: Carvedilol (Carvedilol 12.5 Mg Tablet) 12.5 mg PO BID [facility]; Protocol Last Admin: 10/24/21 09:41 Dose: 12.5 mg Documented by: Clozapine (Clozapine 25 Mg Tablet) 75 mg PO BID@0900,1300 [facility] Last Admin: 10/24/21 14:31 Dose: Not Given Documented by: Clozapine (Clozapine 100 Mg Tablet) 150 mg PO BEDTIME [facility] Last Admin: 10/23/21 21:30 Dose: 150 mg Documented by: Lamotrigine (Lamotrigine 25 Mg Tablet) 25 mg PO DAILY [facility] Last Admin: 10/24/21 09:41 Dose: 25 mg Documented by: Levothyroxine Sodium (Levothyroxine Sodium 175 Mcg Tablet) 175 mcg PO DAILY@0600 [facility] Last Admin: 10/24/21 05:39 Dose: 175 mcg Documented by: [place] Carbonate ([place] Carbonate Er 450 Mg Tablet.Er) 450 mg PO BID [facility] Last Admin: 10/24/21 09:40 Dose: 450 mg Documented by: Magnesium Hydroxide (Milk Of Magnesia 30 Ml Oral.Susp) 30 ml PO DAILY PRN PRN Reason: Constipation Nystatin/Triamcinolone Acetonide (Nystatin/Triamcinolone Cream 15 Gm Tube) 1 appl TOPICAL BID [facility]; Protocol Last Admin: 10/24/21 09:40 Dose: 1 appl Documented by: Trazodone HCl (Trazodone Hcl 25 Mg Halftab) 25 mg PO Q12H PRN PRN Reason: Agitation Trazodone HCl (Trazodone Hcl 100 Mg Tablet) 100 mg PO BEDTIME [facility] Last Admin: 10/23/21 21:22 Dose: 100 mg Documented by: Trazodone HCl (Trazodone Hcl 50 Mg Tablet) 50 mg PO BEDTIME PRN PRN Reason: Insomnia Allergies Allergies Allergy/AdvReac Type Severity Reaction Status Date / Time house dust Allergy Intermediate watery eyes Verified 08/20/21 11:33 adhesive Allergy Unknown Unknown Verified 10/15/21 14:32 fenofibrate Allergy Unknown Unknown Verified 10/15/21 14:32 Sulfa (Sulfonamide Allergy Unknown unknown Verified 10/15/21 14:32 Antibiotics) tomato Allergy Unknown Unknown Verified 10/15/21 14:32 Yeast Allergy Unknown Unknown Verified 10/15/21 14:32 zolpidem [From Ambien] Allergy Unknown Unknown Verified 10/15/21 14:32 lactose AdvReac Unknown Unknown Verified 10/15/21 14:32 Assessment & Plan Assessment & Plan (1) PAF (paroxysmal atrial fibrillation): Status: Acute Code(s): I48.0 - Paroxysmal atrial fibrillation Plan 66 year old man admitted to [facility], with a long history of schizoaffective disorder bipolar type on Clozaril and lithium. He was admitted for exacerbation of aggressive behavior. Plan 1. Continue Clozaril 75 mg p.o. b.i.d. and 150 mg p.o. q.h.s.. 2. Continue with lithium since he is on a therapeutic level. 3. Since the patient is more lab violent dysphoric we will increase Lamictal 25 mg p.o. b.i.d. I spent minutes with the patient and/or on the patient floor today, greater than?50% of which was spent counseling/coordinating care. Reason for contiued inpatient stay Substantial Risk for: inability to function, rapid decompensation and med/psych decompensation
[2021-10-24 17:42] LABS: Clozapine (Clozaril) 401 mcg/L; Norclozapine 250 mcg/L (25-400)
[2021-10-24] MEDS: traZODone HCL 100 MG TABLET PO (22:28)
[2021-10-24] MEDS: cloZAPine 100 MG TABLET 150 MG PO (22:31)
--- NOTE | 2021-10-25 01:37 | PC.NURSE ---
Pt took meds a little late due to refusal. Pt stated he did not want 15 min checks, I dont want to be disturbed every 15 min any more and I'm not taking any pills now either. Pt soon came out of his room to watch tv with other pts.Pt mood changed to being very pleasant and pt took meds.
[2021-10-25] MEDS: Levothyroxine Sodium 175 MCG TABLET PO (05:52)
--- NOTE | 2021-10-25 09:12 | HO.PSYCHPN ---
Subjective Subjective Date of Service: 10/25/21 Reason For Visit: Psychosis Subjective Notes: Conditional Voluntary Interim History: pt with labile mood periods of aggression eventually took cloazapine with encouragement poor communication word salad Medication Compliance: Intermittent Mental Status Exam Mental Status Exam Patient Appearance: Disheveled Patient Orientation: Person Level of Consciousness: Alert Patient Behavior: Guarded, Aggressive and Resistive to Care Mood Description: Labile Affect Description: Happy, Constricted, Hostile, Labile, Nervous and Apprehensive Patient Cognition Impaired: Yes Ability to Follow Directions: Fair Speech Pattern: Clear Hallucinations: Auditory Delusions: Paranoid Ideation and Grandiose Thought Process: Racing, Illogical and Word Salad Thought Content: positive for Poverty of Content, positive for Loose Associations, negative for Suicidal Ideation or negative for Homicidal Ideation Depressive Symptoms: Increased Anxiety Judgement: Poor Diagnostics Vital Signs (24Hr): BMI result Body Mass Index 29.9 Labs Results: 10/21/21 06:36 10/21/21 06:36 Labs: Laboratory Results - last 48 hr 10/21/21 06:36 Clozapine 401 Norclozapine 250 Imaging Radiology Impressions: ITS Impressions Head CT 10/15/21 21:29 IMPRESSION: No acute intracranial pathology. Medications Medications Current Medications Acetaminophen (Acetaminophen 325 Mg Tablet) 650 mg PO Q6H PRN PRN Reason: Headache/Pain Mild Scale (1-3) Last Admin: 10/18/21 20:22 Dose: 650 mg Documented by: Al Hydroxide/Mg Hydroxide (Magnesium Hydrox/Alum Hydrox 30 Ml Oral.Susp) 30 ml PO Q6H PRN PRN Reason: Heartburn/Nausea Apixaban (Apixaban 5 Mg Tablet) 5 mg PO BID [facility] Last Admin: 10/24/21 22:29 Dose: 5 mg Documented by: Artificial Tears (Artificial Tears 15 Ml Drops) 2 drop EYE-BOTH QID [facility] Last Admin: 10/24/21 22:47 Dose: Not Given Documented by: Carvedilol (Carvedilol 12.5 Mg Tablet) 12.5 mg PO BID [facility]; Protocol Last Admin: 10/24/21 22:28 Dose: 12.5 mg Documented by: Clozapine (Clozapine 25 Mg Tablet) 75 mg PO BID@0900,1300 [facility] Last Admin: 10/24/21 14:31 Dose: Not Given Documented by: Clozapine (Clozapine 100 Mg Tablet) 150 mg PO BEDTIME [facility] Last Admin: 10/24/21 22:31 Dose: 150 mg Documented by: Lamotrigine (Lamotrigine 25 Mg Tablet) 25 mg PO BID [facility] Last Admin: 10/24/21 22:35 Dose: Not Given Documented by: Levothyroxine Sodium (Levothyroxine Sodium 175 Mcg Tablet) 175 mcg PO DAILY@0600 [facility] Last Admin: 10/25/21 05:52 Dose: 175 mcg Documented by: [place] Carbonate ([place] Carbonate Er 450 Mg Tablet.Er) 450 mg PO BID [facility] Last Admin: 10/24/21 22:29 Dose: 450 mg Documented by: Magnesium Hydroxide (Milk Of Magnesia 30 Ml Oral.Susp) 30 ml PO DAILY PRN PRN Reason: Constipation Nystatin/Triamcinolone Acetonide (Nystatin/Triamcinolone Cream 15 Gm Tube) 1 appl TOPICAL BID [facility]; Protocol Last Admin: 10/24/21 22:47 Dose: Not Given Documented by: Trazodone HCl (Trazodone Hcl 25 Mg Halftab) 25 mg PO Q12H PRN PRN Reason: Agitation Trazodone HCl (Trazodone Hcl 100 Mg Tablet) 100 mg PO BEDTIME [facility] Last Admin: 10/24/21 22:28 Dose: 100 mg Documented by: Trazodone HCl (Trazodone Hcl 50 Mg Tablet) 50 mg PO BEDTIME PRN PRN Reason: Insomnia Allergies Allergies Allergy/AdvReac Type Severity Reaction Status Date / Time house dust Allergy Intermediate watery eyes Verified 08/20/21 11:33 adhesive Allergy Unknown Unknown Verified 10/15/21 14:32 fenofibrate Allergy Unknown Unknown Verified 10/15/21 14:32 Sulfa (Sulfonamide Allergy Unknown unknown Verified 10/15/21 14:32 Antibiotics) tomato Allergy Unknown Unknown Verified 10/15/21 14:32 Yeast Allergy Unknown Unknown Verified 10/15/21 14:32 zolpidem [From Ambien] Allergy Unknown Unknown Verified 10/15/21 14:32 lactose AdvReac Unknown Unknown Verified 10/15/21 14:32 Assessment & Plan Assessment & Plan (1) PAF (paroxysmal atrial fibrillation): Status: Acute Code(s): I48.0 - Paroxysmal atrial fibrillation Plan 66 year old man admitted to [facility], with a long history of schizoaffective disorder bipolar type on Clozaril and lithium. He was admitted for exacerbation of aggressive behavior. Plan 1. Continue Clozaril 75 mg p.o. b.i.d. and 150 mg p.o. q.h.s.. 2. Continue with lithium since he is on a therapeutic level. 3. Continue lamictal clozapine level 401 . Reason for contiued inpatient stay Substantial Risk for: harm to others and inability to function
[2021-10-25 10:00] VITALS: BP 155/82; PULSE 96; RESP 18; TEMP 37.4; O2SAT 95
[2021-10-25] MEDS: Lithium Carbonate ER 450 MG TABLET.ER PO ×2 (10:00→20:01)
[2021-10-25] MEDS: Apixaban 5 MG TABLET PO ×2 (10:00→20:00)
[2021-10-25] MEDS: cloZAPine 25 MG TABLET 75 MG PO ×2 (10:01→12:15)
[2021-10-25] MEDS: lamoTRIgine 25 MG TABLET PO ×2 (10:01→20:01)
[2021-10-25] MEDS: carvediloL 12.5 MG TABLET PO ×2 (10:02→20:01)
[2021-10-25] MEDS: Artificial Tears 15 ML DROPS 2 DROP EYE-BOTH (12:16)
[2021-10-25] MEDS: cloZAPine 100 MG TABLET 150 MG PO (20:01)
[2021-10-25] MEDS: traZODone HCL 100 MG TABLET PO (20:01)
[2021-10-25 20:56] VITALS: BP 162/78; PULSE 82; RESP 17; TEMP 36.5; O2SAT 96
[2021-10-26] MEDS: Levothyroxine Sodium 175 MCG TABLET PO (06:31)
[2021-10-26 07:35] VITALS: BP 139/88; PULSE 83; RESP 18; TEMP 36.9; O2SAT 98
[2021-10-26] MEDS: cloZAPine 25 MG TABLET 75 MG PO ×2 (08:54→12:42)
[2021-10-26] MEDS: Apixaban 5 MG TABLET PO ×2 (08:54→20:23)
[2021-10-26] MEDS: carvediloL 12.5 MG TABLET PO ×2 (08:54→20:23)
[2021-10-26] MEDS: lamoTRIgine 25 MG TABLET PO ×2 (08:54→20:26)
[2021-10-26] MEDS: Lithium Carbonate ER 450 MG TABLET.ER PO ×2 (08:54→20:26)
[2021-10-26] MEDS: Artificial Tears 15 ML DROPS 2 DROP EYE-BOTH ×3 (08:56→20:23)
[2021-10-26] MEDS: Nystatin/Triamcinolone Cream 15 GM TUBE 1 APPL TOPICAL ×2 (08:56→20:26)
[2021-10-26] MEDS: LORazepam 1 MG TABLET PO (13:42)
--- NOTE | 2021-10-26 19:34 | HO.PSYCHPN ---
Subjective Subjective Date of Service: 10/26/21 Reason For Visit: Psychosis Subjective Notes: Conditional Voluntary Interim History: Patient's case reviewed with nursing staff treatment team patient seen. Patient on the unit periods of irritability severe agitation intrusiveness Medication Compliance: Yes Side effects from medications: No Attending Groups: No Mental Status Exam Mental Status Exam Patient Appearance: Disheveled Patient Orientation: Person Level of Consciousness: Alert Patient Behavior: Suspicious, Aggressive, Resistive to Care and Invasion - Personal Space Mood Description: Labile and Angry Affect Description: Happy, Constricted, Hostile, Labile, Nervous and Apprehensive Patient Cognition Impaired: Yes Ability to Follow Directions: Fair Speech Pattern: Clear Hallucinations: Auditory Delusions: Paranoid Ideation and Grandiose Thought Process: Racing, Illogical and Word Salad Thought Content: positive for Poverty of Content, positive for Loose Associations, negative for Suicidal Ideation or negative for Homicidal Ideation Depressive Symptoms: Increased Anxiety Judgement: Poor Diagnostics Vital Signs (24Hr): Vital Signs - 24 hr 10/25/21 20:56 10/26/21 07:35 Temperature 97.7 F 98.4 F Pulse Rate 82 83 Respiratory Rate 17 18 Blood Pressure 162/78 H 139/88 Pulse Oximetry 96 98 BMI result Body Mass Index 29.9 Labs Results: 10/21/21 06:36 10/21/21 06:36 Imaging Radiology Impressions: ITS Impressions Head CT 10/15/21 21:29 IMPRESSION: No acute intracranial pathology. Medications Medications Current Medications Acetaminophen (Acetaminophen 325 Mg Tablet) 650 mg PO Q6H PRN PRN Reason: Headache/Pain Mild Scale (1-3) Last Admin: 10/18/21 20:22 Dose: 650 mg Documented by: Al Hydroxide/Mg Hydroxide (Magnesium Hydrox/Alum Hydrox 30 Ml Oral.Susp) 30 ml PO Q6H PRN PRN Reason: Heartburn/Nausea Apixaban (Apixaban 5 Mg Tablet) 5 mg PO BID [facility] Last Admin: 10/26/21 08:54 Dose: 5 mg Documented by: Artificial Tears (Artificial Tears 15 Ml Drops) 2 drop EYE-BOTH QID [facility] Last Admin: 10/26/21 19:00 Dose: Not Given Documented by: Carvedilol (Carvedilol 12.5 Mg Tablet) 12.5 mg PO BID [facility]; Protocol Last Admin: 10/26/21 08:54 Dose: 12.5 mg Documented by: Clozapine (Clozapine 25 Mg Tablet) 75 mg PO BID@0900,1300 [facility] Last Admin: 10/26/21 12:42 Dose: 75 mg Documented by: Clozapine (Clozapine 100 Mg Tablet) 150 mg PO BEDTIME [facility] Last Admin: 10/25/21 20:01 Dose: 150 mg Documented by: Haloperidol Lactate (Haloperidol Lactate 10 Mg/5 Ml Oral.Conc) 2.5 mg PO TID PRN PRN Reason: Psychosis Lamotrigine (Lamotrigine 25 Mg Tablet) 25 mg PO BID [facility] Last Admin: 10/26/21 08:54 Dose: 25 mg Documented by: Levothyroxine Sodium (Levothyroxine Sodium 175 Mcg Tablet) 175 mcg PO DAILY@0600 [facility] Last Admin: 10/26/21 06:31 Dose: 175 mcg Documented by: [place] Carbonate ([place] Carbonate Er 450 Mg Tablet.Er) 450 mg PO BID [facility] Last Admin: 10/26/21 08:54 Dose: 450 mg Documented by: Lorazepam (Lorazepam 1 Mg Tablet) 1 mg PO BID PRN PRN Reason: anxiety/restlessness Last Admin: 10/26/21 13:42 Dose: 1 mg Documented by: Magnesium Hydroxide (Milk Of Magnesia 30 Ml Oral.Susp) 30 ml PO DAILY PRN PRN Reason: Constipation Nystatin/Triamcinolone Acetonide (Nystatin/Triamcinolone Cream 15 Gm Tube) 1 appl TOPICAL BID [facility]; Protocol Last Admin: 10/26/21 08:56 Dose: 1 appl Documented by: Trazodone HCl (Trazodone Hcl 25 Mg Halftab) 25 mg PO Q12H PRN PRN Reason: Agitation Trazodone HCl (Trazodone Hcl 100 Mg Tablet) 100 mg PO BEDTIME [facility] Last Admin: 10/25/21 20:01 Dose: 100 mg Documented by: Trazodone HCl (Trazodone Hcl 50 Mg Tablet) 50 mg PO BEDTIME PRN PRN Reason: Insomnia Allergies Allergies Allergy/AdvReac Type Severity Reaction Status Date / Time house dust Allergy Intermediate watery eyes Verified 08/20/21 11:33 adhesive Allergy Unknown Unknown Verified 10/15/21 14:32 fenofibrate Allergy Unknown Unknown Verified 10/15/21 14:32 Sulfa (Sulfonamide Allergy Unknown unknown Verified 10/15/21 14:32 Antibiotics) tomato Allergy Unknown Unknown Verified 10/15/21 14:32 Yeast Allergy Unknown Unknown Verified 10/15/21 14:32 zolpidem [From Ambien] Allergy Unknown Unknown Verified 10/15/21 14:32 lactose AdvReac Unknown Unknown Verified 10/15/21 14:32 Assessment & Plan Assessment & Plan (1) PAF (paroxysmal atrial fibrillation): Status: Acute Code(s): I48.0 - Paroxysmal atrial fibrillation Plan 66 year old man admitted to [facility], with a long history of schizoaffective disorder bipolar type on Clozaril and lithium. He was admitted for exacerbation of aggressive behavior. Plan 1. Continue Clozaril 75 mg p.o. b.i.d. and 150 mg p.o. q.h.s.. 2. Continue with lithium since he is on a therapeutic level. 3. Continue lamictal clozapine level 401 Check EKG most likely needs higher clozapine dosage Haldol Ativan p.r.n. ordered for severe agitation I spent minutes with the patient and/or on the patient floor today, greater than?50% of which was spent counseling/coordinating care. Reason for contiued inpatient stay Substantial Risk for: harm to others and rapid decompensation
[2021-10-26] MEDS: cloZAPine 100 MG TABLET 150 MG PO (20:23)
[2021-10-26] MEDS: traZODone HCL 100 MG TABLET PO (20:26)
[2021-10-26 21:20] VITALS: BP 147/86; PULSE 89; RESP 18; TEMP 36.2; O2SAT 97
[2021-10-26] MEDS: traZODone HCL 50 MG TABLET PO (21:53)
[2021-10-27] MEDS: Levothyroxine Sodium 175 MCG TABLET PO (06:52)
[2021-10-27] MEDS: HaloperidoL 5 MG TABLET PO (07:29)
[2021-10-27] MEDS: LORazepam 1 MG TABLET 2 MG PO (07:29)
[2021-10-27 08:00] VITALS: BP 132/73; PULSE 88; RESP 16; TEMP 36.9; O2SAT 97
--- NOTE | 2021-10-27 08:00 | ECG_ITS ---
Test Reason : CK RHYTHM Blood Pressure : / mmHG Vent. Rate : 074 BPM Atrial Rate : 074 BPM P-R Int : 210 ms QRS Dur : 108 ms QT Int : 386 ms P-R-T Axes : 055 015 261 degrees QTc Int : 428 ms Poor data quality, interpretation may be adversely affected Sinus rhythm with 1st degree A-V block Incomplete right bundle branch block ST & T wave abnormality, consider inferolateral ischemia Abnormal ECG When compared with ECG of 21-OCT-2021 16:02, Criteria for Lateral infarct are no longer Present Inverted T waves have replaced nonspecific T wave abnormality in Inferior leads Referred By: Sharad Covington Electronically Signed By:Nile Razo
[2021-10-27] MEDS: Apixaban 5 MG TABLET PO ×2 (08:43→23:49)
[2021-10-27] MEDS: cloZAPine 100 MG TABLET PO ×2 (08:43→15:13)
[2021-10-27] MEDS: Lithium Carbonate ER 450 MG TABLET.ER PO ×2 (08:43→20:21)
[2021-10-27] MEDS: lamoTRIgine 25 MG TABLET PO ×2 (08:44→20:21)
[2021-10-27] MEDS: Artificial Tears 15 ML DROPS 2 DROP EYE-BOTH ×3 (08:44→18:53)
[2021-10-27] MEDS: carvediloL 12.5 MG TABLET PO ×2 (08:44→20:21)
[2021-10-27] MEDS: Nystatin/Triamcinolone Cream 15 GM TUBE 1 APPL TOPICAL (08:44)
--- NOTE | 2021-10-27 13:14 | HO.PSYCHPN ---
Subjective Subjective Date of Service: 10/27/21 Reason For Visit: Psychosis Subjective Notes: Conditional Voluntary Interim History: The nursing staff reported the patient has been more irritable over the weekend, he was agitated on Wednesday and today in the morning we needed to call Hospital police to redirect him. He received a p.r.n. of Haldol 5 mg and Ativan 2 mg p.o.. On interview, the patient was pleasantly confused and looked slightly sedated. His clozapine levels came back and we increase clozapine up to 100 mg p.o. b.i.d. and 150 p.o. q.h.s. EKG came without new abnormalities Mental Status Exam Mental Status Exam Patient Appearance: Disheveled Patient Orientation: Person and Situation Level of Consciousness: Awake Patient Behavior: Guarded, Passive and Suspicious Mood Description: Depressed Affect Description: Constricted Patient Cognition Impaired: Yes Ability to Follow Directions: Good Speech Pattern: Slurred and Delayed Hallucinations: Auditory Delusions: Paranoid Ideation Thought Process: Illogical and Word Salad Thought Content: positive for Poverty of Content and positive for Loose Associations Judgement: Poor Diagnostics Vital Signs (24Hr): Vital Signs - 24 hr 10/26/21 21:20 10/27/21 08:00 Temperature 97.2 F 98.4 F Pulse Rate 89 88 Respiratory Rate 18 16 Blood Pressure 147/86 H 132/73 Pulse Oximetry 97 97 BMI result Body Mass Index 29.9 Labs Results: 10/21/21 06:36 10/21/21 06:36 Imaging Radiology Impressions: ITS Impressions Head CT 10/15/21 21:29 IMPRESSION: No acute intracranial pathology. Medications Medications Current Medications Acetaminophen (Acetaminophen 325 Mg Tablet) 650 mg PO Q6H PRN PRN Reason: Headache/Pain Mild Scale (1-3) Last Admin: 10/18/21 20:22 Dose: 650 mg Documented by: Al Hydroxide/Mg Hydroxide (Magnesium Hydrox/Alum Hydrox 30 Ml Oral.Susp) 30 ml PO Q6H PRN PRN Reason: Heartburn/Nausea Apixaban (Apixaban 5 Mg Tablet) 5 mg PO BID [facility] Last Admin: 10/27/21 08:43 Dose: 5 mg Documented by: Artificial Tears (Artificial Tears 15 Ml Drops) 2 drop EYE-BOTH QID [facility] Last Admin: 10/27/21 08:44 Dose: 2 drop Documented by: Carvedilol (Carvedilol 12.5 Mg Tablet) 12.5 mg PO BID [facility]; Protocol Last Admin: 10/27/21 08:44 Dose: 12.5 mg Documented by: Clozapine (Clozapine 100 Mg Tablet) 150 mg PO BEDTIME [facility] Last Admin: 10/26/21 20:23 Dose: 150 mg Documented by: Clozapine (Clozapine 100 Mg Tablet) 100 mg PO BID@0900,1300 [facility] Last Admin: 10/27/21 08:43 Dose: 100 mg Documented by: Haloperidol Lactate (Haloperidol Lactate 10 Mg/5 Ml Oral.Conc) 2.5 mg PO TID PRN PRN Reason: Psychosis Last Admin: 10/27/21 02:17 Dose: 2.5 mg Documented by: Lamotrigine (Lamotrigine 25 Mg Tablet) 25 mg PO BID [facility] Last Admin: 10/27/21 08:44 Dose: 25 mg Documented by: Levothyroxine Sodium (Levothyroxine Sodium 175 Mcg Tablet) 175 mcg PO DAILY@0600 [facility] Last Admin: 10/27/21 06:52 Dose: 175 mcg Documented by: [place] Carbonate ([place] Carbonate Er 450 Mg Tablet.Er) 450 mg PO BID [facility] Last Admin: 10/27/21 08:43 Dose: 450 mg Documented by: Lorazepam (Lorazepam 1 Mg Tablet) 1 mg PO BID PRN PRN Reason: anxiety/restlessness Last Admin: 10/26/21 13:42 Dose: 1 mg Documented by: Magnesium Hydroxide (Milk Of Magnesia 30 Ml Oral.Susp) 30 ml PO DAILY PRN PRN Reason: Constipation Nystatin/Triamcinolone Acetonide (Nystatin/Triamcinolone Cream 15 Gm Tube) 1 appl TOPICAL BID [facility]; Protocol Last Admin: 10/27/21 08:44 Dose: 1 appl Documented by: Trazodone HCl (Trazodone Hcl 25 Mg Halftab) 25 mg PO Q12H PRN PRN Reason: Agitation Trazodone HCl (Trazodone Hcl 100 Mg Tablet) 100 mg PO BEDTIME [facility] Last Admin: 10/26/21 20:26 Dose: 100 mg Documented by: Trazodone HCl (Trazodone Hcl 50 Mg Tablet) 50 mg PO BEDTIME PRN PRN Reason: Insomnia Last Admin: 10/26/21 21:53 Dose: 50 mg Documented by: Allergies Allergies Allergy/AdvReac Type Severity Reaction Status Date / Time house dust Allergy Intermediate watery eyes Verified 08/20/21 11:33 adhesive Allergy Unknown Unknown Verified 10/15/21 14:32 fenofibrate Allergy Unknown Unknown Verified 10/15/21 14:32 Sulfa (Sulfonamide Allergy Unknown unknown Verified 10/15/21 14:32 Antibiotics) tomato Allergy Unknown Unknown Verified 10/15/21 14:32 Yeast Allergy Unknown Unknown Verified 10/15/21 14:32 zolpidem [From Ambien] Allergy Unknown Unknown Verified 10/15/21 14:32 lactose AdvReac Unknown Unknown Verified 10/15/21 14:32 Assessment & Plan Assessment & Plan (1) PAF (paroxysmal atrial fibrillation): Status: Acute Code(s): I48.0 - Paroxysmal atrial fibrillation Plan 66 year old man admitted to [facility], with a long history of schizoaffective disorder bipolar type on Clozaril and lithium. He was admitted for exacerbation of aggressive behavior. Plan 1. Increase Clozaril up to 100 mg p.o. b.i.d. and 150 mg p.o. q.h.s.. clozapine level 401 2. Continue with lithium since he is on a therapeutic level. 3. Continue lamictal 4. EKG without an increase of QTC I spent minutes with the patient and/or on the patient floor today, greater than?50% of which was spent counseling/coordinating care. Reason for contiued inpatient stay Substantial Risk for: inability to function, rapid decompensation and med/psych decompensation
[2021-10-27 18:00] VITALS: BP 167/91; PULSE 80; RESP 16; TEMP 37.4; O2SAT 99
[2021-10-27] MEDS: cloZAPine 100 MG TABLET 150 MG PO (20:18)
[2021-10-27] MEDS: traZODone HCL 100 MG TABLET PO (20:18)
[2021-10-28] MEDS: Levothyroxine Sodium 175 MCG TABLET PO (06:43)
[2021-10-28 07:10] VITALS: BP 141/65; PULSE 82; RESP 18; TEMP 36.6; O2SAT 97
[2021-10-28] MEDS: carvediloL 12.5 MG TABLET PO ×2 (08:31→20:37)
[2021-10-28] MEDS: Apixaban 5 MG TABLET PO ×2 (08:31→20:37)
[2021-10-28] MEDS: cloZAPine 100 MG TABLET PO ×2 (08:31→13:57)
[2021-10-28] MEDS: Lithium Carbonate ER 450 MG TABLET.ER PO ×2 (08:31→20:37)
[2021-10-28] MEDS: lamoTRIgine 25 MG TABLET PO ×2 (08:31→20:37)
[2021-10-28] MEDS: Nystatin/Triamcinolone Cream 15 GM TUBE 1 APPL TOPICAL (08:33)
[2021-10-28] MEDS: Artificial Tears 15 ML DROPS 2 DROP EYE-BOTH ×2 (08:33→13:57)
[2021-10-28 10:13] LABS: Neut%MD 74.7 %; Neutrophils Absolute Auto 7.1 x10*3/uL (2.0-8.3); WBCANC 9.5 X10*3/uL
--- NOTE | 2021-10-28 11:29 | P.PNPSI_ITS ---
Subjective Subjective Date of Service: 10/28/21 Reason For Visit: Psychosis Subjective Notes: Conditional Voluntary Interim History: The patient was very irritable yesterday needed to be medicated twice, 1 at 03:00 o'clock in the morning and later at 07:30 with Haldol with some improvement. No evidence of over-sedation with Haldol 5 mg at 07:30. Later on, the patient was more pleasant and cooperative but still with word salad severely disorganized. Today on interview, the patient denies new symptoms he looks confused. and paranoid, with word salad, unable to explain why he was angry or scared. We recently increased his Clozaril up to 100 mg p.o. b.i.d. and 150 p.o. q.h.s. but it seems that he needs another antipsychotic probably a typical antipsychotic such as Haldol since he is very psychotic and paranoid. Mental Status Exam Mental Status Exam Patient Appearance: Disheveled Patient Orientation: Person Level of Consciousness: Awake and Restless Patient Behavior: Guarded, Suspicious, Fearful and Crying Mood Description: Withdrawn and Anxious Affect Description: Labile Patient Cognition Impaired: Yes Ability to Follow Directions: Fair Speech Pattern: Clear Hallucinations: Auditory Delusions: Paranoid Ideation Thought Process: Linear Thought Content: positive for Poverty of Content, positive for Thought Blocking and positive for Incoherent Judgement: Poor Diagnostics Vital Signs (24Hr): Vital Signs - 24 hr 10/27/21 18:00 10/28/21 07:10 Temperature 99.4 F 97.8 F Pulse Rate 80 82 Respiratory Rate 16 18 Blood Pressure 167/91 H 141/65 H Pulse Oximetry 99 97 BMI result Body Mass Index 29.9 Labs Results: 10/21/21 06:36 10/21/21 06:36 Labs: Laboratory Results - last 48 hr 10/28/21 10:07 Absolute Neuts (auto) 7.1 Imaging Radiology Impressions: ITS Impressions Head CT 10/15/21 21:29 IMPRESSION: No acute intracranial pathology. Medications Medications Current Medications Acetaminophen (Acetaminophen 325 Mg Tablet) 650 mg PO Q6H PRN PRN Reason: Headache/Pain Mild Scale (1-3) Last Admin: 10/18/21 20:22 Dose: 650 mg Documented by: Al Hydroxide/Mg Hydroxide (Magnesium Hydrox/Alum Hydrox 30 Ml Oral.Susp) 30 ml PO Q6H PRN PRN Reason: Heartburn/Nausea Apixaban (Apixaban 5 Mg Tablet) 5 mg PO BID [facility] Last Admin: 10/28/21 08:31 Dose: 5 mg Documented by: Artificial Tears (Artificial Tears 15 Ml Drops) 2 drop EYE-BOTH QID [facility] Last Admin: 10/28/21 08:33 Dose: 2 drop Documented by: Carvedilol (Carvedilol 12.5 Mg Tablet) 12.5 mg PO BID [facility]; Protocol Last Admin: 10/28/21 08:31 Dose: 12.5 mg Documented by: Clozapine (Clozapine 100 Mg Tablet) 150 mg PO BEDTIME [facility] Last Admin: 10/27/21 20:18 Dose: 150 mg Documented by: Clozapine (Clozapine 100 Mg Tablet) 100 mg PO BID@0900,1300 [facility] Last Admin: 10/28/21 08:31 Dose: 100 mg Documented by: Haloperidol Lactate (Haloperidol Lactate 10 Mg/5 Ml Oral.Conc) 5 mg PO TID PRN PRN Reason: Psychosis Last Admin: 10/27/21 18:52 Dose: 5 mg Documented by: Lamotrigine (Lamotrigine 25 Mg Tablet) 25 mg PO BID [facility] Last Admin: 10/28/21 08:31 Dose: 25 mg Documented by: Levothyroxine Sodium (Levothyroxine Sodium 175 Mcg Tablet) 175 mcg PO DAILY@0600 [facility] Last Admin: 10/28/21 06:43 Dose: 175 mcg Documented by: [place] Carbonate ([place] Carbonate Er 450 Mg Tablet.Er) 450 mg PO BID [facility] Last Admin: 10/28/21 08:31 Dose: 450 mg Documented by: Lorazepam (Lorazepam 1 Mg Tablet) 1 mg PO BID PRN PRN Reason: anxiety/restlessness Last Admin: 10/26/21 13:42 Dose: 1 mg Documented by: Magnesium Hydroxide (Milk Of Magnesia 30 Ml Oral.Susp) 30 ml PO DAILY PRN PRN Reason: Constipation Nystatin/Triamcinolone Acetonide (Nystatin/Triamcinolone Cream 15 Gm Tube) 1 appl TOPICAL BID [facility]; Protocol Last Admin: 10/28/21 08:33 Dose: 1 appl Documented by: Trazodone HCl (Trazodone Hcl 25 Mg Halftab) 25 mg PO Q12H PRN PRN Reason: Agitation Trazodone HCl (Trazodone Hcl 100 Mg Tablet) 100 mg PO BEDTIME [facility] Last Admin: 10/27/21 20:18 Dose: 100 mg Documented by: Trazodone HCl (Trazodone Hcl 50 Mg Tablet) 50 mg PO BEDTIME PRN PRN Reason: Insomnia Last Admin: 10/26/21 21:53 Dose: 50 mg Documented by: Allergies Allergies Allergy/AdvReac Type Severity Reaction Status Date / Time house dust Allergy Intermediate watery eyes Verified 08/20/21 11:33 adhesive Allergy Unknown Unknown Verified 10/15/21 14:32 fenofibrate Allergy Unknown Unknown Verified 10/15/21 14:32 Sulfa (Sulfonamide Allergy Unknown unknown Verified 10/15/21 14:32 Antibiotics) tomato Allergy Unknown Unknown Verified 10/15/21 14:32 Yeast Allergy Unknown Unknown Verified 10/15/21 14:32 zolpidem [From Ambien] Allergy Unknown Unknown Verified 10/15/21 14:32 lactose AdvReac Unknown Unknown Verified 10/15/21 14:32 Assessment & Plan Assessment & Plan (1) PAF (paroxysmal atrial fibrillation): Status: Acute Code(s): I48.0 - Paroxysmal atrial fibrillation Plan 66 year old man admitted to [facility], with a long history of schizoaffective disorder bipolar type on Clozaril and lithium. He was admitted for exacerbation of aggressive behavior. Plan 1. Increase Clozaril up to 100 mg p.o. b.i.d. and 150 mg p.o. q.h.s.. clozapine level 401 2. Continue with lithium since he is on a therapeutic level. 3. Continue lamictal 4. EKG without an increase of QTC. 5. Start Haldol 2 mg po tid. I spent ___30___ minutes with the patient and/or on the patient floor today, greater than?50% of which was spent counseling/coordinating care. Patient educated on: diagnosis and therapeutic strategies Informed Consent: further education needed Reason for contiued inpatient stay Substantial Risk for: inability to function, rapid decompensation and med/psych decompensation
[2021-10-28] MEDS: HaloperidoL 1 MG TABLET 2 MG PO ×2 (14:17→20:39)
[2021-10-28 19:15] VITALS: BP 140/76; PULSE 80; TEMP 36.8; O2SAT 97
[2021-10-28] MEDS: traZODone HCL 100 MG TABLET PO (20:37)
[2021-10-28] MEDS: cloZAPine 100 MG TABLET 150 MG PO (20:39)
[2021-10-29 06:00] VITALS: BP 123/60; PULSE 83; RESP 18; TEMP 37.1; O2SAT 97
[2021-10-29] MEDS: Levothyroxine Sodium 175 MCG TABLET PO (06:15)
[2021-10-29] MEDS: cloZAPine 100 MG TABLET PO ×2 (10:00→13:51)
[2021-10-29] MEDS: Apixaban 5 MG TABLET PO ×2 (10:00→20:47)
[2021-10-29] MEDS: lamoTRIgine 25 MG TABLET PO ×2 (10:00→20:51)
[2021-10-29] MEDS: HaloperidoL 1 MG TABLET 2 MG PO ×2 (10:01→20:51)
[2021-10-29] MEDS: carvediloL 12.5 MG TABLET PO ×2 (10:01→20:47)
[2021-10-29] MEDS: Lithium Carbonate ER 450 MG TABLET.ER PO ×2 (10:01→20:52)
--- NOTE | 2021-10-29 12:11 | HO.PSYCHPN ---
Subjective Subjective Date of Service: 10/29/21 Reason For Visit: Psychosis Subjective Notes: Conditional Voluntary Interim History: The nursing staff reported the patient today the few groups, he was seen self dialogue in, irritable but less angry. On interview, the patient still has word salad, he is delusional and disorganized. Mental Status Exam Mental Status Exam Patient Appearance: Appropriate Patient Orientation: Person Level of Consciousness: Awake Patient Behavior: Guarded, Passive and Suspicious Mood Description: Expansive Affect Description: Labile Patient Cognition Impaired: Yes Ability to Follow Directions: Good Speech Pattern: Garbled, Mumbled and Excessive Hallucinations: Auditory Delusions: Paranoid Ideation Thought Process: Illogical, Distracted and Slowed Thinking Thought Content: positive for Poverty of Content, positive for Loose Associations, positive for Thought Blocking and positive for Incoherent Judgement: Fair Diagnostics Vital Signs (24Hr): Vital Signs - 24 hr 10/28/21 19:15 Temperature 98.3 F Pulse Rate 80 Blood Pressure 140/76 H Pulse Oximetry 97 BMI result Body Mass Index 29.9 Labs Results: 10/21/21 06:36 10/21/21 06:36 Labs: Laboratory Results - last 48 hr 10/28/21 10:07 Absolute Neuts (auto) 7.1 Imaging Radiology Impressions: ITS Impressions Head CT 10/15/21 21:29 IMPRESSION: No acute intracranial pathology. Medications Medications Current Medications Acetaminophen (Acetaminophen 325 Mg Tablet) 650 mg PO Q6H PRN PRN Reason: Headache/Pain Mild Scale (1-3) Last Admin: 10/18/21 20:22 Dose: 650 mg Documented by: Al Hydroxide/Mg Hydroxide (Magnesium Hydrox/Alum Hydrox 30 Ml Oral.Susp) 30 ml PO Q6H PRN PRN Reason: Heartburn/Nausea Apixaban (Apixaban 5 Mg Tablet) 5 mg PO BID [facility] Last Admin: 10/29/21 10:00 Dose: 5 mg Documented by: Artificial Tears (Artificial Tears 15 Ml Drops) 2 drop EYE-BOTH QID [facility] Last Admin: 10/29/21 10:11 Dose: Not Given Documented by: Carvedilol (Carvedilol 12.5 Mg Tablet) 12.5 mg PO BID [facility]; Protocol Last Admin: 10/29/21 10:01 Dose: 12.5 mg Documented by: Clozapine (Clozapine 100 Mg Tablet) 150 mg PO BEDTIME [facility] Last Admin: 10/28/21 20:39 Dose: 150 mg Documented by: Clozapine (Clozapine 100 Mg Tablet) 100 mg PO BID@0900,1300 [facility] Last Admin: 10/29/21 10:00 Dose: 100 mg Documented by: Haloperidol (Haloperidol 1 Mg Tablet) 2 mg PO TID [facility] Last Admin: 10/29/21 10:01 Dose: 2 mg Documented by: Haloperidol Lactate (Haloperidol Lactate 10 Mg/5 Ml Oral.Conc) 5 mg PO TID PRN PRN Reason: Psychosis Last Admin: 10/27/21 18:52 Dose: 5 mg Documented by: Lamotrigine (Lamotrigine 25 Mg Tablet) 25 mg PO BID [facility] Last Admin: 10/29/21 10:00 Dose: 25 mg Documented by: Levothyroxine Sodium (Levothyroxine Sodium 175 Mcg Tablet) 175 mcg PO DAILY@0600 [facility] Last Admin: 10/29/21 06:15 Dose: 175 mcg Documented by: [place] Carbonate ([place] Carbonate Er 450 Mg Tablet.Er) 450 mg PO BID [facility] Last Admin: 10/29/21 10:01 Dose: 450 mg Documented by: Lorazepam (Lorazepam 1 Mg Tablet) 1 mg PO BID PRN PRN Reason: anxiety/restlessness Last Admin: 10/26/21 13:42 Dose: 1 mg Documented by: Magnesium Hydroxide (Milk Of Magnesia 30 Ml Oral.Susp) 30 ml PO DAILY PRN PRN Reason: Constipation Nystatin/Triamcinolone Acetonide (Nystatin/Triamcinolone Cream 15 Gm Tube) 1 appl TOPICAL BID [facility]; Protocol Last Admin: 10/29/21 10:11 Dose: Not Given Documented by: Trazodone HCl (Trazodone Hcl 25 Mg Halftab) 25 mg PO Q12H PRN PRN Reason: Agitation Trazodone HCl (Trazodone Hcl 100 Mg Tablet) 100 mg PO BEDTIME [facility] Last Admin: 10/28/21 20:37 Dose: 100 mg Documented by: Trazodone HCl (Trazodone Hcl 50 Mg Tablet) 50 mg PO BEDTIME PRN PRN Reason: Insomnia Last Admin: 10/26/21 21:53 Dose: 50 mg Documented by: Allergies Allergies Allergy/AdvReac Type Severity Reaction Status Date / Time house dust Allergy Intermediate watery eyes Verified 08/20/21 11:33 adhesive Allergy Unknown Unknown Verified 10/15/21 14:32 fenofibrate Allergy Unknown Unknown Verified 10/15/21 14:32 Sulfa (Sulfonamide Allergy Unknown unknown Verified 10/15/21 14:32 Antibiotics) tomato Allergy Unknown Unknown Verified 10/15/21 14:32 Yeast Allergy Unknown Unknown Verified 10/15/21 14:32 zolpidem [From Ambien] Allergy Unknown Unknown Verified 10/15/21 14:32 lactose AdvReac Unknown Unknown Verified 10/15/21 14:32 Assessment & Plan Assessment & Plan (1) PAF (paroxysmal atrial fibrillation): Status: Acute Code(s): I48.0 - Paroxysmal atrial fibrillation Plan 66 year old man admitted to [facility], with a long history of schizoaffective disorder bipolar type on Clozaril and lithium. He was admitted for exacerbation of aggressive behavior. Plan 1. Increase Clozaril up to 100 mg p.o. b.i.d. and 150 mg p.o. q.h.s.. clozapine level 401 2. Continue with lithium since he is on a therapeutic level. 3. Continue lamictal 4. EKG without an increase of QTC. 5. Continue Haldol 2 mg po tid. Tomorrow will changed to Haldol 5 mg p.o. b.i.d. if tolerated I spent 20_ minutes with the patient and/or on the patient floor today, greater than?50% of which was spent counseling/coordinating care. Patient educated on: diagnosis Informed Consent: further education needed Reason for contiued inpatient stay Substantial Risk for: inability to function, rapid decompensation and med/psych decompensation
[2021-10-29] MEDS: cloZAPine 100 MG TABLET 150 MG PO (20:50)
[2021-10-29] MEDS: traZODone HCL 100 MG TABLET PO (20:52)
[2021-10-29] MEDS: Artificial Tears 15 ML DROPS 2 DROP EYE-BOTH (20:54)
[2021-10-29] MEDS: Nystatin/Triamcinolone Cream 15 GM TUBE 1 APPL TOPICAL (20:54)
[2021-10-29 22:04] VITALS: BP 163/91; PULSE 74; RESP 18; TEMP 37.3; O2SAT 98
[2021-10-30 06:00] VITALS: BP 125/78; PULSE 80; RESP 18; TEMP 37.1; O2SAT 97
[2021-10-30] MEDS: Levothyroxine Sodium 175 MCG TABLET PO (06:43)
[2021-10-30] MEDS: Apixaban 5 MG TABLET PO ×2 (08:52→20:15)
[2021-10-30] MEDS: carvediloL 12.5 MG TABLET PO ×2 (08:52→20:16)
[2021-10-30] MEDS: HaloperidoL 1 MG TABLET 2 MG PO ×3 (08:52→20:16)
[2021-10-30] MEDS: cloZAPine 100 MG TABLET PO ×2 (08:52→14:01)
[2021-10-30] MEDS: lamoTRIgine 25 MG TABLET PO ×2 (08:52→20:16)
[2021-10-30] MEDS: Lithium Carbonate ER 450 MG TABLET.ER PO ×2 (08:52→20:16)
[2021-10-30 14:13] VITALS: BMI 30.4
--- NOTE | 2021-10-30 14:14 | HO.PSYCHPN ---
Subjective Subjective Date of Service: 10/30/21 Reason For Visit: Psychosis Subjective Notes: Conditional Voluntary Interim History: The nursing staff reported the patient has been less agitated but still with word salad very disorganized. There is no evidence of over-sedation with Haldol 2 mg p.o. t.i.d. On interview, the patient refused to engage in conversation, he looks pleasantly confused, psychotic, delusional with word salad. The plan is that eventually increase Haldol if there is no improvement on the thought process disorganization Mental Status Exam Mental Status Exam Patient Appearance: Well Grooomed Patient Orientation: Person Level of Consciousness: Awake Patient Behavior: Guarded, Passive and Suspicious Mood Description: Withdrawn Affect Description: Constricted Patient Cognition Impaired: Yes Ability to Follow Directions: Fair Speech Pattern: Clear and Rambling Hallucinations: Auditory Delusions: Paranoid Ideation Thought Process: Illogical Thought Content: positive for [place] and positive for Poverty of Content Judgement: Poor Diagnostics Vital Signs (24Hr): Vital Signs - 24 hr 10/29/21 22:04 10/30/21 06:00 Temperature 99.1 F 98.8 F Pulse Rate 74 80 Respiratory Rate 18 18 Blood Pressure 163/91 H 125/78 Pulse Oximetry 98 97 BMI result Body Mass Index 30.4 Labs Results: 10/21/21 06:36 10/21/21 06:36 Imaging Radiology Impressions: ITS Impressions Head CT 10/15/21 21:29 IMPRESSION: No acute intracranial pathology. Medications Medications Current Medications Acetaminophen (Acetaminophen 325 Mg Tablet) 650 mg PO Q6H PRN PRN Reason: Headache/Pain Mild Scale (1-3) Last Admin: 10/18/21 20:22 Dose: 650 mg Documented by: Al Hydroxide/Mg Hydroxide (Magnesium Hydrox/Alum Hydrox 30 Ml Oral.Susp) 30 ml PO Q6H PRN PRN Reason: Heartburn/Nausea Apixaban (Apixaban 5 Mg Tablet) 5 mg PO BID [facility] Last Admin: 10/30/21 08:52 Dose: 5 mg Documented by: Artificial Tears (Artificial Tears 15 Ml Drops) 2 drop EYE-BOTH QID [facility] Last Admin: 10/30/21 14:13 Dose: Not Given Documented by: Carvedilol (Carvedilol 12.5 Mg Tablet) 12.5 mg PO BID [facility]; Protocol Last Admin: 10/30/21 08:52 Dose: 12.5 mg Documented by: Clozapine (Clozapine 100 Mg Tablet) 150 mg PO BEDTIME [facility] Last Admin: 10/29/21 20:50 Dose: 150 mg Documented by: Clozapine (Clozapine 100 Mg Tablet) 100 mg PO BID@0900,1300 [facility] Last Admin: 10/30/21 14:01 Dose: 100 mg Documented by: Haloperidol (Haloperidol 1 Mg Tablet) 2 mg PO TID [facility] Last Admin: 10/30/21 14:01 Dose: 2 mg Documented by: Haloperidol Lactate (Haloperidol Lactate 10 Mg/5 Ml Oral.Conc) 5 mg PO TID PRN PRN Reason: Psychosis Last Admin: 10/27/21 18:52 Dose: 5 mg Documented by: Lamotrigine (Lamotrigine 25 Mg Tablet) 25 mg PO BID [facility] Last Admin: 10/30/21 08:52 Dose: 25 mg Documented by: Levothyroxine Sodium (Levothyroxine Sodium 175 Mcg Tablet) 175 mcg PO DAILY@0600 [facility] Last Admin: 10/30/21 06:43 Dose: 175 mcg Documented by: [place] Carbonate ([place] Carbonate Er 450 Mg Tablet.Er) 450 mg PO BID [facility] Last Admin: 10/30/21 08:52 Dose: 450 mg Documented by: Lorazepam (Lorazepam 1 Mg Tablet) 1 mg PO BID PRN PRN Reason: anxiety/restlessness Last Admin: 10/26/21 13:42 Dose: 1 mg Documented by: Magnesium Hydroxide (Milk Of Magnesia 30 Ml Oral.Susp) 30 ml PO DAILY PRN PRN Reason: Constipation Nystatin/Triamcinolone Acetonide (Nystatin/Triamcinolone Cream 15 Gm Tube) 1 appl TOPICAL BID [facility]; Protocol Last Admin: 10/30/21 10:05 Dose: Not Given Documented by: Trazodone HCl (Trazodone Hcl 25 Mg Halftab) 25 mg PO Q12H PRN PRN Reason: Agitation Trazodone HCl (Trazodone Hcl 100 Mg Tablet) 100 mg PO BEDTIME [facility] Last Admin: 10/29/21 20:52 Dose: 100 mg Documented by: Trazodone HCl (Trazodone Hcl 50 Mg Tablet) 50 mg PO BEDTIME PRN PRN Reason: Insomnia Last Admin: 10/26/21 21:53 Dose: 50 mg Documented by: Allergies Allergies Allergy/AdvReac Type Severity Reaction Status Date / Time house dust Allergy Intermediate watery eyes Verified 08/20/21 11:33 adhesive Allergy Unknown Unknown Verified 10/15/21 14:32 fenofibrate Allergy Unknown Unknown Verified 10/15/21 14:32 Sulfa (Sulfonamide Allergy Unknown unknown Verified 10/15/21 14:32 Antibiotics) tomato Allergy Unknown Unknown Verified 10/15/21 14:32 Yeast Allergy Unknown Unknown Verified 10/15/21 14:32 zolpidem [From Ambien] Allergy Unknown Unknown Verified 10/15/21 14:32 lactose AdvReac Unknown Unknown Verified 10/15/21 14:32 Assessment & Plan Assessment & Plan (1) PAF (paroxysmal atrial fibrillation): Status: Acute Code(s): I48.0 - Paroxysmal atrial fibrillation Plan 66 year old man admitted to [facility], with a long history of schizoaffective disorder bipolar type on Clozaril and lithium. He was admitted for exacerbation of aggressive behavior. Plan 1. Increase Clozaril up to 100 mg p.o. b.i.d. and 150 mg p.o. q.h.s.. clozapine level 401 2. Continue with lithium since he is on a therapeutic level. 3. Continue lamictal 4. EKG without an increase of QTC. 5. Continue Haldol 2 mg po tid. we will consider to increase Haldol if the thought process still is disorganized. I spent ___20___ minutes with the patient and/or on the patient floor today, greater than?50% of which was spent counseling/coordinating care. Patient educated on: therapeutic strategies Informed Consent: further education needed Reason for contiued inpatient stay Substantial Risk for: inability to function, rapid decompensation and med/psych decompensation
[2021-10-30] MEDS: cloZAPine 100 MG TABLET 150 MG PO (20:14)
[2021-10-30] MEDS: traZODone HCL 100 MG TABLET PO (20:16)
[2021-10-30] MEDS: Artificial Tears 15 ML DROPS 2 DROP EYE-BOTH (20:16)
[2021-10-30] MEDS: Nystatin/Triamcinolone Cream 15 GM TUBE 1 APPL TOPICAL (20:17)
[2021-10-30 21:57] VITALS: BP 137/62; PULSE 82; RESP 17; TEMP 37.3; O2SAT 96
[2021-10-31] MEDS: Levothyroxine Sodium 175 MCG TABLET PO (06:41)
[2021-10-31 08:00] VITALS: BP 136/74; PULSE 68; RESP 17; TEMP 37.1; O2SAT 97
[2021-10-31] MEDS: Artificial Tears 15 ML DROPS 2 DROP EYE-BOTH ×3 (08:17→16:57)
[2021-10-31] MEDS: Nystatin/Triamcinolone Cream 15 GM TUBE 1 APPL TOPICAL (08:17)
[2021-10-31] MEDS: cloZAPine 100 MG TABLET PO ×2 (08:18→12:43)
[2021-10-31] MEDS: Lithium Carbonate ER 450 MG TABLET.ER PO ×2 (08:18→21:13)
[2021-10-31] MEDS: Apixaban 5 MG TABLET PO ×2 (08:18→21:12)
[2021-10-31] MEDS: carvediloL 12.5 MG TABLET PO ×2 (08:18→21:13)
[2021-10-31] MEDS: lamoTRIgine 25 MG TABLET PO ×2 (08:18→21:14)
[2021-10-31] MEDS: HaloperidoL 1 MG TABLET 2 MG PO ×3 (08:18→21:10)
--- NOTE | 2021-10-31 08:47 | P.PNPSI_ITS ---
Subjective Subjective Date of Service: 10/31/21 Reason For Visit: Psychosis Subjective Notes: Conditional Voluntary Guardianship: No Medical Problems Affecting Mental Status: No Interim History: Patient less labile seems better with Haldol continues quite thought disordered Medication Compliance: Yes Attending Groups: No Review of Systems Medical Review of Systems: unchanged Mental Status Exam Mental Status Exam Patient Appearance: Well Grooomed Patient Orientation: Person Level of Consciousness: Awake Patient Behavior: Guarded, Passive, Suspicious and Anxious Mood Description: Withdrawn, Labile and Nervous Affect Description: Constricted and Apprehensive Patient Cognition Impaired: Yes Ability to Follow Directions: Fair Speech Pattern: Clear and Rambling Hallucinations: Auditory Delusions: Paranoid Ideation Thought Process: Illogical Thought Content: positive for [place] and positive for Poverty of Content Judgement: Poor Diagnostics Vital Signs (24Hr): Vital Signs - 24 hr 10/30/21 21:57 Temperature 99.1 F Pulse Rate 82 Respiratory Rate 17 Blood Pressure 137/62 Pulse Oximetry 96 BMI result Body Mass Index 30.4 Labs Results: 10/21/21 06:36 10/21/21 06:36 Imaging Radiology Impressions: ITS Impressions Head CT 10/15/21 21:29 IMPRESSION: No acute intracranial pathology. Medications Medications Current Medications Acetaminophen (Acetaminophen 325 Mg Tablet) 650 mg PO Q6H PRN PRN Reason: Headache/Pain Mild Scale (1-3) Last Admin: 10/18/21 20:22 Dose: 650 mg Documented by: Al Hydroxide/Mg Hydroxide (Magnesium Hydrox/Alum Hydrox 30 Ml Oral.Susp) 30 ml PO Q6H PRN PRN Reason: Heartburn/Nausea Apixaban (Apixaban 5 Mg Tablet) 5 mg PO BID [facility] Last Admin: 10/31/21 08:18 Dose: 5 mg Documented by: Artificial Tears (Artificial Tears 15 Ml Drops) 2 drop EYE-BOTH QID [facility] Last Admin: 10/31/21 08:17 Dose: 2 drop Documented by: Carvedilol (Carvedilol 12.5 Mg Tablet) 12.5 mg PO BID [facility]; Protocol Last Admin: 10/31/21 08:18 Dose: 12.5 mg Documented by: Clozapine (Clozapine 100 Mg Tablet) 150 mg PO BEDTIME [facility] Last Admin: 10/30/21 20:14 Dose: 150 mg Documented by: Clozapine (Clozapine 100 Mg Tablet) 100 mg PO BID@0900,1300 [facility] Last Admin: 10/31/21 08:18 Dose: 100 mg Documented by: Haloperidol (Haloperidol 1 Mg Tablet) 2 mg PO TID [facility] Last Admin: 10/31/21 08:18 Dose: 2 mg Documented by: Haloperidol Lactate (Haloperidol Lactate 10 Mg/5 Ml Oral.Conc) 5 mg PO TID PRN PRN Reason: Psychosis Last Admin: 10/27/21 18:52 Dose: 5 mg Documented by: Lamotrigine (Lamotrigine 25 Mg Tablet) 25 mg PO BID [facility] Last Admin: 10/31/21 08:18 Dose: 25 mg Documented by: Levothyroxine Sodium (Levothyroxine Sodium 175 Mcg Tablet) 175 mcg PO DAILY@0600 [facility] Last Admin: 10/31/21 06:41 Dose: 175 mcg Documented by: [place] Carbonate ([place] Carbonate Er 450 Mg Tablet.Er) 450 mg PO BID [facility] Last Admin: 10/31/21 08:18 Dose: 450 mg Documented by: Lorazepam (Lorazepam 1 Mg Tablet) 1 mg PO BID PRN PRN Reason: anxiety/restlessness Last Admin: 10/26/21 13:42 Dose: 1 mg Documented by: Magnesium Hydroxide (Milk Of Magnesia 30 Ml Oral.Susp) 30 ml PO DAILY PRN PRN Reason: Constipation Nystatin/Triamcinolone Acetonide (Nystatin/Triamcinolone Cream 15 Gm Tube) 1 appl TOPICAL BID [facility]; Protocol Last Admin: 10/31/21 08:17 Dose: 1 appl Documented by: Trazodone HCl (Trazodone Hcl 25 Mg Halftab) 25 mg PO Q12H PRN PRN Reason: Agitation Trazodone HCl (Trazodone Hcl 100 Mg Tablet) 100 mg PO BEDTIME [facility] Last Admin: 10/30/21 20:16 Dose: 100 mg Documented by: Trazodone HCl (Trazodone Hcl 50 Mg Tablet) 50 mg PO BEDTIME PRN PRN Reason: Insomnia Last Admin: 10/26/21 21:53 Dose: 50 mg Documented by: Allergies Allergies Allergy/AdvReac Type Severity Reaction Status Date / Time house dust Allergy Intermediate watery eyes Verified 08/20/21 11:33 adhesive Allergy Unknown Unknown Verified 10/15/21 14:32 fenofibrate Allergy Unknown Unknown Verified 10/15/21 14:32 Sulfa (Sulfonamide Allergy Unknown unknown Verified 10/15/21 14:32 Antibiotics) tomato Allergy Unknown Unknown Verified 10/15/21 14:32 Yeast Allergy Unknown Unknown Verified 10/15/21 14:32 zolpidem [From Ambien] Allergy Unknown Unknown Verified 10/15/21 14:32 lactose AdvReac Unknown Unknown Verified 10/15/21 14:32 Assessment & Plan Assessment & Plan (1) PAF (paroxysmal atrial fibrillation): Status: Acute Code(s): I48.0 - Paroxysmal atrial fibrillation Plan 66 year old man admitted to [facility], with a long history of schizoaffective disorder bipolar type on Clozaril and lithium. He was admitted for exacerbation of aggressive behavior. Plan 1. Increase Clozaril up to 100 mg p.o. b.i.d. and 150 mg p.o. q.h.s.. clozapine level 401 2. Continue with lithium since he is on a therapeutic level. 3. Continue lamictal 4. EKG without an increase of QTC. 5. Continue Haldol 2 mg po tid. we will consider to increase Haldol if the thought process still is disorganized. 10/31/2021 10/31/2021 Patient seen in psychiatric follow-up chart reviewed patient seen case reviewed with nursing staff. Patient seems somewhat more stable on Haldol less labile somewhat more withdrawn and dysphoric. Severely thought disordered there was some question regarding ECT patient's current symptoms do not seem like a good target for ECT I spent minutes with the patient and/or on the patient floor today, greater than?50% of which was spent counseling/coordinating care. Reason for contiued inpatient stay Substantial Risk for: harm to others, inability to function and rapid decompensation
[2021-10-31 18:00] VITALS: BP 142/77; PULSE 80; RESP 16; TEMP 37.3; O2SAT 97
[2021-10-31] MEDS: traZODone HCL 100 MG TABLET PO (21:12)
[2021-10-31] MEDS: cloZAPine 100 MG TABLET 150 MG PO (21:12)
[2021-11-01] MEDS: Levothyroxine Sodium 175 MCG TABLET PO (05:21)
[2021-11-01 08:00] VITALS: BP 135/67; PULSE 75; TEMP 36.6; O2SAT 97
[2021-11-01] MEDS: lamoTRIgine 25 MG TABLET PO ×2 (08:26→23:22)
[2021-11-01] MEDS: Lithium Carbonate ER 450 MG TABLET.ER PO ×2 (08:26→23:18)
[2021-11-01] MEDS: Artificial Tears 15 ML DROPS 2 DROP EYE-BOTH ×3 (08:26→17:31)
[2021-11-01] MEDS: cloZAPine 100 MG TABLET PO ×2 (08:26→13:37)
[2021-11-01] MEDS: Apixaban 5 MG TABLET PO ×2 (08:26→23:17)
[2021-11-01] MEDS: Nystatin/Triamcinolone Cream 15 GM TUBE 1 APPL TOPICAL (08:26)
[2021-11-01] MEDS: HaloperidoL 1 MG TABLET 2 MG PO ×3 (08:26→23:19)
[2021-11-01] MEDS: carvediloL 12.5 MG TABLET PO ×2 (08:26→23:19)
--- NOTE | 2021-11-01 09:59 | P.PNPSI_ITS ---
Subjective Subjective Date of Service: 11/01/21 Reason For Visit: Psychosis Subjective Notes: Conditional Voluntary Interim History: Pt difficult to understand. He reports feeling better but unable to explain in what way. He was somewhat irritable earlier in morning but later more visible and social with peers. He denies SI/HI. He denies any physical complaints. He is taking medications as prescribed. No behavioral concerns. Medication Compliance: Yes Side effects from medications: No Review of Systems Review of Systems Denies any recent fever chills or decrease in appetite respiratory denies any shortness of breath coverage production cardiovascular denies chest pain gastrointestinal denies any dysphagia abdominal pain nausea vomiting or diarrhea genitourinary denies any dysuria frequency or hematuria musculoskeletal denies any joint pain or swelling neuropsych denies any weakness or seizures all other systems reviewed are negative Yes Unobtainable due to mental status Mental Status Exam Mental Status Exam Narrative: dressed in hospital attire, disheveled, lying in bed. no PMA/PMR. cooperative with interview. speech decr in amount, incr in rate, somewhat dysarthric. thoughts disorganized. affect constricted. mood unknown. no SI/HI/AVH expressed. Diagnostics Vital Signs (24Hr): Vital Signs - 24 hr 11/02/21 08:00 11/02/21 19:58 Temperature 98.1 F 98.7 F Pulse Rate 79 73 Respiratory Rate 18 Blood Pressure 144/66 H 155/90 H Pulse Oximetry 98 98 BMI result Body Mass Index 30.4 Labs Results: 10/21/21 06:36 10/21/21 06:36 Imaging Radiology Impressions: ITS Impressions Head CT 10/15/21 21:29 IMPRESSION: No acute intracranial pathology. Medications Medications Current Medications Acetaminophen (Acetaminophen 325 Mg Tablet) 650 mg PO Q6H PRN PRN Reason: Headache/Pain Mild Scale (1-3) Last Admin: 10/18/21 20:22 Dose: 650 mg Documented by: Al Hydroxide/Mg Hydroxide (Magnesium Hydrox/Alum Hydrox 30 Ml Oral.Susp) 30 ml PO Q6H PRN PRN Reason: Heartburn/Nausea Apixaban (Apixaban 5 Mg Tablet) 5 mg PO BID [facility] Last Admin: 11/02/21 20:26 Dose: 5 mg Documented by: Artificial Tears (Artificial Tears 15 Ml Drops) 2 drop EYE-BOTH QID [facility] Last Admin: 11/02/21 20:26 Dose: 2 drop Documented by: Carvedilol (Carvedilol 12.5 Mg Tablet) 12.5 mg PO BID [facility]; Protocol Last Admin: 11/02/21 20:27 Dose: 12.5 mg Documented by: Clozapine (Clozapine 100 Mg Tablet) 150 mg PO BEDTIME [facility] Last Admin: 11/02/21 20:28 Dose: 150 mg Documented by: Clozapine (Clozapine 100 Mg Tablet) 100 mg PO BID@0900,1300 [facility] Last Admin: 11/02/21 12:48 Dose: 100 mg Documented by: Haloperidol (Haloperidol 1 Mg Tablet) 2 mg PO TID [facility] Last Admin: 11/02/21 20:29 Dose: 2 mg Documented by: Haloperidol Lactate (Haloperidol Lactate 10 Mg/5 Ml Oral.Conc) 5 mg PO TID PRN PRN Reason: Psychosis Last Admin: 10/27/21 18:52 Dose: 5 mg Documented by: Lamotrigine (Lamotrigine 25 Mg Tablet) 25 mg PO BID [facility] Last Admin: 11/02/21 20:30 Dose: 25 mg Documented by: Levothyroxine Sodium (Levothyroxine Sodium 175 Mcg Tablet) 175 mcg PO DAILY@0600 [facility] Last Admin: 11/03/21 06:43 Dose: 175 mcg Documented by: [place] Carbonate ([place] Carbonate Er 450 Mg Tablet.Er) 450 mg PO BID [facility] Last Admin: 11/02/21 20:30 Dose: 450 mg Documented by: Magnesium Hydroxide (Milk Of Magnesia 30 Ml Oral.Susp) 30 ml PO DAILY PRN PRN Reason: Constipation Nystatin/Triamcinolone Acetonide (Nystatin/Triamcinolone Cream 15 Gm Tube) 1 appl TOPICAL BID [facility]; Protocol Last Admin: 11/02/21 20:30 Dose: 1 appl Documented by: Trazodone HCl (Trazodone Hcl 25 Mg Halftab) 25 mg PO Q12H PRN PRN Reason: Agitation Trazodone HCl (Trazodone Hcl 100 Mg Tablet) 100 mg PO BEDTIME [facility] Last Admin: 11/02/21 20:30 Dose: 100 mg Documented by: Trazodone HCl (Trazodone Hcl 50 Mg Tablet) 50 mg PO BEDTIME PRN PRN Reason: Insomnia Last Admin: 10/26/21 21:53 Dose: 50 mg Documented by: Allergies Allergies Allergy/AdvReac Type Severity Reaction Status Date / Time house dust Allergy Intermediate watery eyes Verified 08/20/21 11:33 adhesive Allergy Unknown Unknown Verified 10/15/21 14:32 fenofibrate Allergy Unknown Unknown Verified 10/15/21 14:32 Sulfa (Sulfonamide Allergy Unknown unknown Verified 10/15/21 14:32 Antibiotics) tomato Allergy Unknown Unknown Verified 10/15/21 14:32 Yeast Allergy Unknown Unknown Verified 10/15/21 14:32 zolpidem [From Ambien] Allergy Unknown Unknown Verified 10/15/21 14:32 lactose AdvReac Unknown Unknown Verified 10/15/21 14:32 Assessment & Plan Assessment & Plan (1) PAF (paroxysmal atrial fibrillation): Status: Acute Code(s): I48.0 - Paroxysmal atrial fibrillation (2) Schizoaffective disorder, bipolar type: Status: Acute Code(s): F25.0 - Schizoaffective disorder, bipolar type Plan 66 year old man admitted [facility] the medical center, with a long history of schizoaffective disorder bipolar type on Clozaril and lithium. He was admitted for exacerbation of aggressive behavior. Plan 1. Increase Clozaril up to 100 mg p.o. b.i.d. and 150 mg p.o. q.h.s.. clozapine level 401 2. Continue with lithium since he is on a therapeutic level. 3. Continue lamictal 4. EKG without an increase of QTC. 5. Continue Haldol 2 mg po tid. we will consider to increase Haldol if the thought process still is disorganized. 10/31/2021 10/31/2021 Patient seen in psychiatric follow-up chart reviewed patient seen case reviewed with nursing staff. Patient seems somewhat more stable on Haldol less labile somewhat more withdrawn and dysphoric. Severely thought disordered there was some question regarding ECT patient's current symptoms do not seem like a good target for ECT 3/5- continue current medications. I spent minutes with the patient and/or on the patient floor today, greater than?50% of which was spent counseling/coordinating care. Reason for contiued inpatient stay Substantial Risk for: inability to function
[2021-11-01 18:00] VITALS: BP 152/86; PULSE 77; RESP 16; TEMP 36.6; O2SAT 98
[2021-11-01] MEDS: cloZAPine 100 MG TABLET 150 MG PO (23:17)
[2021-11-01] MEDS: traZODone HCL 100 MG TABLET PO (23:18)
[2021-11-02] MEDS: Levothyroxine Sodium 175 MCG TABLET PO (06:27)
--- NOTE | 2021-11-02 07:02 | HO.PSYCHPN ---
Subjective Subjective Date of Service: 11/02/21 Reason For Visit: Psychosis Subjective Notes: Conditional Voluntary Interim History: Pt difficult to understand. He denies any complaints, reports sleeping and eating better. He denies SI/HI. Then most conversation is unintelligible. He smiles few times during interview and thanks this ad writer for checking in with him. Medication Compliance: Yes Side effects from medications: No Review of Systems Review of Systems Denies any recent fever chills or decrease in appetite respiratory denies any shortness of breath coverage production cardiovascular denies chest pain gastrointestinal denies any dysphagia abdominal pain nausea vomiting or diarrhea genitourinary denies any dysuria frequency or hematuria musculoskeletal denies any joint pain or swelling neuropsych denies any weakness or seizures all other systems reviewed are negative Yes Unobtainable due to mental status Mental Status Exam Mental Status Exam Narrative: dressed in hospital attire, disheveled, lying in bed. no PMA/PMR. cooperative with interview. speech decr in amount, incr in rate, somewhat dysarthric. thoughts disorganized. affect constricted. mood unknown. no SI/HI/AVH expressed. Diagnostics Vital Signs (24Hr): Vital Signs - 24 hr 11/02/21 08:00 11/02/21 19:58 Temperature 98.1 F 98.7 F Pulse Rate 79 73 Respiratory Rate 18 Blood Pressure 144/66 H 155/90 H Pulse Oximetry 98 98 BMI result Body Mass Index 30.4 Labs Results: 10/21/21 06:36 10/21/21 06:36 Imaging Radiology Impressions: ITS Impressions Head CT 10/15/21 21:29 IMPRESSION: No acute intracranial pathology. Medications Medications Current Medications Acetaminophen (Acetaminophen 325 Mg Tablet) 650 mg PO Q6H PRN PRN Reason: Headache/Pain Mild Scale (1-3) Last Admin: 10/18/21 20:22 Dose: 650 mg Documented by: Al Hydroxide/Mg Hydroxide (Magnesium Hydrox/Alum Hydrox 30 Ml Oral.Susp) 30 ml PO Q6H PRN PRN Reason: Heartburn/Nausea Apixaban (Apixaban 5 Mg Tablet) 5 mg PO BID [facility] Last Admin: 11/02/21 20:26 Dose: 5 mg Documented by: Artificial Tears (Artificial Tears 15 Ml Drops) 2 drop EYE-BOTH QID [facility] Last Admin: 11/02/21 20:26 Dose: 2 drop Documented by: Carvedilol (Carvedilol 12.5 Mg Tablet) 12.5 mg PO BID [facility]; Protocol Last Admin: 11/02/21 20:27 Dose: 12.5 mg Documented by: Clozapine (Clozapine 100 Mg Tablet) 150 mg PO BEDTIME [facility] Last Admin: 11/02/21 20:28 Dose: 150 mg Documented by: Clozapine (Clozapine 100 Mg Tablet) 100 mg PO BID@0900,1300 [facility] Last Admin: 11/02/21 12:48 Dose: 100 mg Documented by: Haloperidol (Haloperidol 1 Mg Tablet) 2 mg PO TID [facility] Last Admin: 11/02/21 20:29 Dose: 2 mg Documented by: Haloperidol Lactate (Haloperidol Lactate 10 Mg/5 Ml Oral.Conc) 5 mg PO TID PRN PRN Reason: Psychosis Last Admin: 10/27/21 18:52 Dose: 5 mg Documented by: Lamotrigine (Lamotrigine 25 Mg Tablet) 25 mg PO BID [facility] Last Admin: 11/02/21 20:30 Dose: 25 mg Documented by: Levothyroxine Sodium (Levothyroxine Sodium 175 Mcg Tablet) 175 mcg PO DAILY@0600 [facility] Last Admin: 11/03/21 06:43 Dose: 175 mcg Documented by: [place] Carbonate ([place] Carbonate Er 450 Mg Tablet.Er) 450 mg PO BID [facility] Last Admin: 11/02/21 20:30 Dose: 450 mg Documented by: Magnesium Hydroxide (Milk Of Magnesia 30 Ml Oral.Susp) 30 ml PO DAILY PRN PRN Reason: Constipation Nystatin/Triamcinolone Acetonide (Nystatin/Triamcinolone Cream 15 Gm Tube) 1 appl TOPICAL BID [facility]; Protocol Last Admin: 11/02/21 20:30 Dose: 1 appl Documented by: Trazodone HCl (Trazodone Hcl 25 Mg Halftab) 25 mg PO Q12H PRN PRN Reason: Agitation Trazodone HCl (Trazodone Hcl 100 Mg Tablet) 100 mg PO BEDTIME [facility] Last Admin: 11/02/21 20:30 Dose: 100 mg Documented by: Trazodone HCl (Trazodone Hcl 50 Mg Tablet) 50 mg PO BEDTIME PRN PRN Reason: Insomnia Last Admin: 10/26/21 21:53 Dose: 50 mg Documented by: Allergies Allergies Allergy/AdvReac Type Severity Reaction Status Date / Time house dust Allergy Intermediate watery eyes Verified 08/20/21 11:33 adhesive Allergy Unknown Unknown Verified 10/15/21 14:32 fenofibrate Allergy Unknown Unknown Verified 10/15/21 14:32 Sulfa (Sulfonamide Allergy Unknown unknown Verified 10/15/21 14:32 Antibiotics) tomato Allergy Unknown Unknown Verified 10/15/21 14:32 Yeast Allergy Unknown Unknown Verified 10/15/21 14:32 zolpidem [From Ambien] Allergy Unknown Unknown Verified 10/15/21 14:32 lactose AdvReac Unknown Unknown Verified 10/15/21 14:32 Assessment & Plan Assessment & Plan (1) PAF (paroxysmal atrial fibrillation): Status: Acute Code(s): I48.0 - Paroxysmal atrial fibrillation (2) Schizoaffective disorder, bipolar type: Status: Acute Code(s): F25.0 - Schizoaffective disorder, bipolar type Plan 66 year old man admitted to [facility], with a long history of schizoaffective disorder bipolar type on Clozaril and lithium. He was admitted for exacerbation of aggressive behavior. Plan 1. Increase Clozaril up to 100 mg p.o. b.i.d. and 150 mg p.o. q.h.s.. clozapine level 401 2. Continue with lithium since he is on a therapeutic level. 3. Continue lamictal 4. EKG without an increase of QTC. 5. Continue Haldol 2 mg po tid. we will consider to increase Haldol if the thought process still is disorganized. 10/31/2021 10/31/2021 Patient seen in psychiatric follow-up chart reviewed patient seen case reviewed with nursing staff. Patient seems somewhat more stable on Haldol less labile somewhat more withdrawn and dysphoric. Severely thought disordered there was some question regarding ECT patient's current symptoms do not seem like a good target for ECT 3/5- continue current medications. 3/6- no medication changes. I spent minutes with the patient and/or on the patient floor today, greater than?50% of which was spent counseling/coordinating care. Reason for contiued inpatient stay Substantial Risk for: inability to function
[2021-11-02 08:00] VITALS: BP 144/66; PULSE 79; TEMP 36.7; O2SAT 98
[2021-11-02] MEDS: Artificial Tears 15 ML DROPS 2 DROP EYE-BOTH ×4 (08:18→20:26)
[2021-11-02] MEDS: Nystatin/Triamcinolone Cream 15 GM TUBE 1 APPL TOPICAL ×2 (08:19→20:30)
[2021-11-02] MEDS: cloZAPine 100 MG TABLET PO ×2 (08:19→12:48)
[2021-11-02] MEDS: HaloperidoL 1 MG TABLET 2 MG PO ×3 (08:19→20:29)
[2021-11-02] MEDS: carvediloL 12.5 MG TABLET PO ×2 (08:19→20:27)
[2021-11-02] MEDS: Lithium Carbonate ER 450 MG TABLET.ER PO ×2 (08:19→20:30)
[2021-11-02] MEDS: lamoTRIgine 25 MG TABLET PO ×2 (08:19→20:30)
[2021-11-02] MEDS: Apixaban 5 MG TABLET PO ×2 (08:19→20:26)
[2021-11-02 19:58] VITALS: BP 155/90; PULSE 73; RESP 18; TEMP 37.1; O2SAT 98
[2021-11-02] MEDS: cloZAPine 100 MG TABLET 150 MG PO (20:28)
[2021-11-02] MEDS: traZODone HCL 100 MG TABLET PO (20:30)
[2021-11-03] MEDS: Levothyroxine Sodium 175 MCG TABLET PO (06:43)
[2021-11-03] MEDS: HaloperidoL 1 MG TABLET 2 MG PO ×3 (09:36→21:03)
[2021-11-03] MEDS: Lithium Carbonate ER 450 MG TABLET.ER PO ×2 (09:37→21:04)
[2021-11-03] MEDS: Apixaban 5 MG TABLET PO ×2 (09:37→21:02)
[2021-11-03] MEDS: Nystatin/Triamcinolone Cream 15 GM TUBE 1 APPL TOPICAL ×2 (09:37→21:04)
[2021-11-03] MEDS: Artificial Tears 15 ML DROPS 2 DROP EYE-BOTH ×2 (09:37→21:03)
[2021-11-03] MEDS: lamoTRIgine 25 MG TABLET PO ×2 (09:37→21:04)
[2021-11-03] MEDS: cloZAPine 100 MG TABLET PO ×2 (09:41→14:04)
--- NOTE | 2021-11-03 21:02 | P.PNPSI_ITS ---
Subjective Subjective Date of Service: 11/03/21 Reason For Visit: Psychosis Subjective Notes: Conditional Voluntary Interim History: Patient seen in psychiatric follow-up. Patient's mood is calmer is less labile less reactive periods of isolation other times engage with peers. Remains quite thoughts ordered often difficult to understand Mental Status Exam Mental Status Exam Narrative: Patient superficially bright smiling tries to engage in conversation but often difficult to understand both garbled and nonsensical. Nonlinear. Was not aggressive threatening shakes his head when asked about harming behavior some periods of anxiety impulse control when seen intact Diagnostics Vital Signs (24Hr): BMI result Body Mass Index 30.4 Labs Results: 10/21/21 06:36 10/21/21 06:36 Imaging Radiology Impressions: ITS Impressions Head CT 10/15/21 21:29 IMPRESSION: No acute intracranial pathology. Medications Medications Current Medications Acetaminophen (Acetaminophen 325 Mg Tablet) 650 mg PO Q6H PRN PRN Reason: Headache/Pain Mild Scale (1-3) Last Admin: 10/18/21 20:22 Dose: 650 mg Documented by: Al Hydroxide/Mg Hydroxide (Magnesium Hydrox/Alum Hydrox 30 Ml Oral.Susp) 30 ml PO Q6H PRN PRN Reason: Heartburn/Nausea Apixaban (Apixaban 5 Mg Tablet) 5 mg PO BID [facility] Last Admin: 11/03/21 09:37 Dose: 5 mg Documented by: Artificial Tears (Artificial Tears 15 Ml Drops) 2 drop EYE-BOTH QID [facility] Last Admin: 11/03/21 19:24 Dose: Not Given Documented by: Carvedilol (Carvedilol 12.5 Mg Tablet) 12.5 mg PO BID [facility]; Protocol Last Admin: 11/03/21 09:43 Dose: Not Given Documented by: Clozapine (Clozapine 100 Mg Tablet) 150 mg PO BEDTIME [facility] Last Admin: 11/02/21 20:28 Dose: 150 mg Documented by: Clozapine (Clozapine 100 Mg Tablet) 100 mg PO BID@0900,1300 [facility] Last Admin: 11/03/21 14:04 Dose: 100 mg Documented by: Haloperidol (Haloperidol 1 Mg Tablet) 2 mg PO TID [facility] Last Admin: 11/03/21 14:04 Dose: 2 mg Documented by: Haloperidol Lactate (Haloperidol Lactate 10 Mg/5 Ml Oral.Conc) 5 mg PO TID PRN PRN Reason: Psychosis Last Admin: 10/27/21 18:52 Dose: 5 mg Documented by: Lamotrigine (Lamotrigine 25 Mg Tablet) 25 mg PO BID [facility] Last Admin: 11/03/21 09:37 Dose: 25 mg Documented by: Levothyroxine Sodium (Levothyroxine Sodium 175 Mcg Tablet) 175 mcg PO DAILY@0600 [facility] Last Admin: 11/03/21 06:43 Dose: 175 mcg Documented by: [place] Carbonate ([place] Carbonate Er 450 Mg Tablet.Er) 450 mg PO BID [facility] Last Admin: 11/03/21 09:37 Dose: 450 mg Documented by: Magnesium Hydroxide (Milk Of Magnesia 30 Ml Oral.Susp) 30 ml PO DAILY PRN PRN Reason: Constipation Nystatin/Triamcinolone Acetonide (Nystatin/Triamcinolone Cream 15 Gm Tube) 1 appl TOPICAL BID [facility]; Protocol Last Admin: 11/03/21 09:37 Dose: 1 appl Documented by: Trazodone HCl (Trazodone Hcl 100 Mg Tablet) 100 mg PO BEDTIME [facility] Last Admin: 11/02/21 20:30 Dose: 100 mg Documented by: Trazodone HCl (Trazodone Hcl 50 Mg Tablet) 50 mg PO BEDTIME PRN PRN Reason: Insomnia Last Admin: 10/26/21 21:53 Dose: 50 mg Documented by: Allergies Allergies Allergy/AdvReac Type Severity Reaction Status Date / Time house dust Allergy Intermediate watery eyes Verified 08/20/21 11:33 adhesive Allergy Unknown Unknown Verified 10/15/21 14:32 fenofibrate Allergy Unknown Unknown Verified 10/15/21 14:32 Sulfa (Sulfonamide Allergy Unknown unknown Verified 10/15/21 14:32 Antibiotics) tomato Allergy Unknown Unknown Verified 10/15/21 14:32 Yeast Allergy Unknown Unknown Verified 10/15/21 14:32 zolpidem [From Ambien] Allergy Unknown Unknown Verified 10/15/21 14:32 lactose AdvReac Unknown Unknown Verified 10/15/21 14:32 Assessment & Plan Assessment & Plan (1) PAF (paroxysmal atrial fibrillation): Status: Acute Code(s): I48.0 - Paroxysmal atrial fibrillation (2) Schizoaffective disorder, bipolar type: Status: Acute Code(s): F25.0 - Schizoaffective disorder, bipolar type Plan 66 year old man admitted to [facility], with a long history of schizoaffective disorder bipolar type on Clozaril and lithium. He was admitted for exacerbation of aggressive behavior. Plan 1. Increase Clozaril up to 100 mg p.o. b.i.d. and 150 mg p.o. q.h.s.. clozapine level 401 2. Continue with lithium since he is on a therapeutic level. 3. Continue lamictal 4. EKG without an increase of QTC. 5. Continue Haldol 2 mg po tid. we will consider to increase Haldol if the thought process still is disorganized. 10/31/2021 10/31/2021 Patient seen in psychiatric follow-up chart reviewed patient seen case reviewed with nursing staff. Patient seems somewhat more stable on Haldol less labile somewhat more withdrawn and dysphoric. Severely thought disordered there was some question regarding ECT patient's current symptoms do not seem like a good target for ECT 11/01- continue current medications. 11/02- no medication changes. 11/03/2021 Continue Haldol Haldol check lithium increased Lamictal for mood stabilization Discharge planning I spent minutes with the patient and/or on the patient floor today, greater than?50% of which was spent counseling/coordinating care. Reason for contiued inpatient stay Substantial Risk for: inability to function and rapid decompensation
[2021-11-03] MEDS: cloZAPine 100 MG TABLET 150 MG PO (21:03)
[2021-11-03] MEDS: carvediloL 12.5 MG TABLET PO (21:03)
[2021-11-03] MEDS: traZODone HCL 100 MG TABLET PO (21:04)
[2021-11-03 21:48] VITALS: BP 163/93; PULSE 82; RESP 18; TEMP 35.9; O2SAT 97
[2021-11-04] MEDS: Levothyroxine Sodium 175 MCG TABLET PO (06:09)
[2021-11-04 07:20] VITALS: BP 134/74; PULSE 76; RESP 16; TEMP 36.9; O2SAT 97
[2021-11-04] MEDS: lamoTRIgine 25 MG TABLET 37.5 MG PO ×2 (09:11→20:41)
[2021-11-04] MEDS: carvediloL 12.5 MG TABLET PO ×2 (09:11→20:39)
[2021-11-04] MEDS: Lithium Carbonate ER 450 MG TABLET.ER PO ×2 (09:11→20:42)
[2021-11-04] MEDS: cloZAPine 100 MG TABLET PO ×2 (09:11→12:29)
[2021-11-04] MEDS: HaloperidoL 1 MG TABLET 2 MG PO ×3 (09:11→20:41)
[2021-11-04] MEDS: Apixaban 5 MG TABLET PO ×2 (09:11→20:39)
[2021-11-04] MEDS: Nystatin/Triamcinolone Cream 15 GM TUBE 1 APPL TOPICAL ×2 (09:12→20:42)
[2021-11-04] MEDS: Artificial Tears 15 ML DROPS 2 DROP EYE-BOTH ×3 (09:12→20:39)
[2021-11-04 09:52] LABS: Neutrophils Absolute Auto 5.1 x10*3/uL (2.0-8.3); WBCANC 7.2 X10*3/uL
--- NOTE | 2021-11-04 11:58 | HO.PSYCHPN ---
Subjective Subjective Date of Service: 11/04/21 Reason For Visit: Psychosis Subjective Notes: Conditional Voluntary Interim History: pt seems more stable less reactive tolerating current regimen Medication Compliance: Yes Mental Status Exam Mental Status Exam Patient Appearance: Well Grooomed Patient Orientation: Person Level of Consciousness: Awake Patient Behavior: Guarded, Cooperative and Passive Mood Description: Cheerful Affect Description: Constricted Patient Cognition Impaired: Yes Ability to Follow Directions: Fair Speech Pattern: Clear and Rambling Hallucinations: Auditory Delusions: Paranoid Ideation (much decreased) Thought Process: Illogical Thought Content: positive for [place], positive for Poverty of Content, positive for Loose Associations and positive for Disorganized Judgement: Poor Diagnostics Vital Signs (24Hr): Vital Signs - 24 hr 11/03/21 21:48 11/04/21 07:20 Temperature 96.7 F L 98.4 F Pulse Rate 82 76 Respiratory Rate 18 16 Blood Pressure 163/93 H 134/74 Pulse Oximetry 97 97 BMI result Body Mass Index 30.4 Labs Results: 10/21/21 06:36 10/21/21 06:36 Labs: Laboratory Results - last 48 hr 11/04/21 09:37 Absolute Neuts (auto) 5.1 Imaging Radiology Impressions: ITS Impressions Head CT 10/15/21 21:29 IMPRESSION: No acute intracranial pathology. Medications Medications Current Medications Acetaminophen (Acetaminophen 325 Mg Tablet) 650 mg PO Q6H PRN PRN Reason: Headache/Pain Mild Scale (1-3) Last Admin: 10/18/21 20:22 Dose: 650 mg Documented by: Al Hydroxide/Mg Hydroxide (Magnesium Hydrox/Alum Hydrox 30 Ml Oral.Susp) 30 ml PO Q6H PRN PRN Reason: Heartburn/Nausea Apixaban (Apixaban 5 Mg Tablet) 5 mg PO BID ON LICENSE OF [facility] Last Admin: 11/04/21 09:11 Dose: 5 mg Documented by: Artificial Tears (Artificial Tears 15 Ml Drops) 2 drop EYE-BOTH QID ON LICENSE OF [facility] Last Admin: 11/04/21 09:12 Dose: 2 drop Documented by: Carvedilol (Carvedilol 12.5 Mg Tablet) 12.5 mg PO BID ON [facility] OF [facility]; Protocol Last Admin: 11/04/21 09:11 Dose: 12.5 mg Documented by: Clozapine (Clozapine 100 Mg Tablet) 150 mg PO BEDTIME ON [facility] OF [facility] Last Admin: 11/03/21 21:03 Dose: 150 mg Documented by: Clozapine (Clozapine 100 Mg Tablet) 100 mg PO BID@0900,1300 ON [facility] Last Admin: 11/04/21 09:11 Dose: 100 mg Documented by: Haloperidol (Haloperidol 1 Mg Tablet) 2 mg PO TID ON [facility] OF [facility] Last Admin: 11/04/21 09:11 Dose: 2 mg Documented by: Haloperidol Lactate (Haloperidol Lactate 10 Mg/5 Ml Oral.Conc) 5 mg PO TID PRN PRN Reason: Psychosis Last Admin: 10/27/21 18:52 Dose: 5 mg Documented by: Lamotrigine (Lamotrigine 25 Mg Tablet) 37.5 mg PO BID ON [facility] OF [facility] Last Admin: 11/04/21 09:11 Dose: 37.5 mg Documented by: Levothyroxine Sodium (Levothyroxine Sodium 175 Mcg Tablet) 175 mcg PO DAILY@0600 ON [facility] OF [facility] Last Admin: 11/04/21 06:09 Dose: 175 mcg Documented by: [place] Carbonate ([place] Carbonate Er 450 Mg Tablet.Er) 450 mg PO BID ON [facility] OF [facility] Last Admin: 11/04/21 09:11 Dose: 450 mg Documented by: Magnesium Hydroxide (Milk Of Magnesia 30 Ml Oral.Susp) 30 ml PO DAILY PRN PRN Reason: Constipation Nystatin/Triamcinolone Acetonide (Nystatin/Triamcinolone Cream 15 Gm Tube) 1 appl TOPICAL BID ON LICENSE OF [facility]; Protocol Last Admin: 11/04/21 09:12 Dose: 1 appl Documented by: Trazodone HCl (Trazodone Hcl 100 Mg Tablet) 100 mg PO BEDTIME ON LICENSE OF [facility] Last Admin: 11/03/21 21:04 Dose: 100 mg Documented by: Trazodone HCl (Trazodone Hcl 50 Mg Tablet) 50 mg PO BEDTIME PRN PRN Reason: Insomnia Last Admin: 10/26/21 21:53 Dose: 50 mg Documented by: Allergies Allergies Allergy/AdvReac Type Severity Reaction Status Date / Time house dust Allergy Intermediate watery eyes Verified 08/20/21 11:33 adhesive Allergy Unknown Unknown Verified 10/15/21 14:32 fenofibrate Allergy Unknown Unknown Verified 10/15/21 14:32 Sulfa (Sulfonamide Allergy Unknown unknown Verified 10/15/21 14:32 Antibiotics) tomato Allergy Unknown Unknown Verified 10/15/21 14:32 Yeast Allergy Unknown Unknown Verified 10/15/21 14:32 zolpidem [From Ambien] Allergy Unknown Unknown Verified 10/15/21 14:32 lactose AdvReac Unknown Unknown Verified 10/15/21 14:32 Assessment & Plan Assessment & Plan (1) PAF (paroxysmal atrial fibrillation): Status: Acute Code(s): I48.0 - Paroxysmal atrial fibrillation (2) Schizoaffective disorder, bipolar type: Status: Acute Code(s): F25.0 - Schizoaffective disorder, bipolar type Plan The patient has been tolerating current regimen of Clozaril and Haldol to seems more organized less reactive less irritable Case reviewed extensively with Dr. Huerta from [place] patient had initially been diagnosed with schizoaffective disorder seem to respond to ECT later seem to have developed cognitive impairment and ECT was discontinued head CT scan so shows no clear stroke I spent minutes with the patient and/or on the patient floor today, greater than?50% of which was spent counseling/coordinating care. Reason for contiued inpatient stay Substantial Risk for: harm to others, inability to function and rapid decompensation
[2021-11-04] MEDS: cloZAPine 100 MG TABLET 150 MG PO (20:40)
[2021-11-04] MEDS: traZODone HCL 100 MG TABLET PO (20:42)
[2021-11-04 21:42] VITALS: BP 147/85; PULSE 75; RESP 18; TEMP 36.5; O2SAT 95
[2021-11-05 08:00] VITALS: BP 140/94; PULSE 80; RESP 14; TEMP 36.3; O2SAT 98
[2021-11-05] MEDS: Lithium Carbonate ER 450 MG TABLET.ER PO ×2 (08:26→20:33)
[2021-11-05] MEDS: carvediloL 12.5 MG TABLET PO ×2 (08:26→20:28)
[2021-11-05] MEDS: Nystatin/Triamcinolone Cream 15 GM TUBE 1 APPL TOPICAL (08:26)
[2021-11-05] MEDS: Levothyroxine Sodium 175 MCG TABLET PO (08:26)
[2021-11-05] MEDS: cloZAPine 100 MG TABLET PO ×2 (08:26→12:59)
[2021-11-05] MEDS: Artificial Tears 15 ML DROPS 2 DROP EYE-BOTH ×3 (08:26→18:04)
[2021-11-05] MEDS: HaloperidoL 1 MG TABLET 2 MG PO ×3 (08:26→20:31)
[2021-11-05] MEDS: Apixaban 5 MG TABLET PO ×2 (08:27→20:27)
[2021-11-05] MEDS: lamoTRIgine 25 MG TABLET 37.5 MG PO ×2 (08:27→20:32)
--- NOTE | 2021-11-05 09:14 | HO.PSYCHPN ---
Subjective Subjective Date of Service: 11/05/21 Reason For Visit: Psychosis Subjective Notes: Conditional Voluntary Healthcare Proxy: Yes (invoked ) Guardianship: No Medical Problems Affecting Mental Status: No Interim History: pt has been less irritable going to some grps Medication Compliance: Yes Attending Groups: Intermittent Review of Systems Acute medical concerns: No Medical Review of Systems: changed Review of Systems Review of Systems Yes Unobtainable due to mental status Diagnostics Vital Signs (24Hr): Vital Signs - 24 hr 11/04/21 21:42 Temperature 97.7 F Pulse Rate 75 Respiratory Rate 18 Blood Pressure 147/85 H Pulse Oximetry 95 BMI result Body Mass Index 30.4 Labs Results: 10/21/21 06:36 10/21/21 06:36 Labs: Laboratory Results - last 48 hr 11/04/21 09:37 Absolute Neuts (auto) 5.1 Imaging Radiology Impressions: ITS Impressions Head CT 10/15/21 21:29 IMPRESSION: No acute intracranial pathology. Medications Medications Current Medications Acetaminophen (Acetaminophen 325 Mg Tablet) 650 mg PO Q6H PRN PRN Reason: Headache/Pain Mild Scale (1-3) Last Admin: 10/18/21 20:22 Dose: 650 mg Documented by: Al Hydroxide/Mg Hydroxide (Magnesium Hydrox/Alum Hydrox 30 Ml Oral.Susp) 30 ml PO Q6H PRN PRN Reason: Heartburn/Nausea Apixaban (Apixaban 5 Mg Tablet) 5 mg PO BID [facility] Last Admin: 11/05/21 08:27 Dose: 5 mg Documented by: Artificial Tears (Artificial Tears 15 Ml Drops) 2 drop EYE-BOTH QID [facility] Last Admin: 11/05/21 08:26 Dose: 2 drop Documented by: Carvedilol (Carvedilol 12.5 Mg Tablet) 12.5 mg PO BID [facility]; Protocol Last Admin: 11/05/21 08:26 Dose: 12.5 mg Documented by: Clozapine (Clozapine 100 Mg Tablet) 150 mg PO BEDTIME [facility] Last Admin: 11/04/21 20:40 Dose: 150 mg Documented by: Clozapine (Clozapine 100 Mg Tablet) 100 mg PO BID@0900,1300 [facility] Last Admin: 11/05/21 08:26 Dose: 100 mg Documented by: Haloperidol (Haloperidol 1 Mg Tablet) 2 mg PO TID [facility] Last Admin: 11/05/21 08:26 Dose: 2 mg Documented by: Haloperidol Lactate (Haloperidol Lactate 10 Mg/5 Ml Oral.Conc) 5 mg PO TID PRN PRN Reason: Psychosis Last Admin: 10/27/21 18:52 Dose: 5 mg Documented by: Lamotrigine (Lamotrigine 25 Mg Tablet) 37.5 mg PO BID [facility] Last Admin: 11/05/21 08:27 Dose: 37.5 mg Documented by: Levothyroxine Sodium (Levothyroxine Sodium 175 Mcg Tablet) 175 mcg PO DAILY@0600 [facility] Last Admin: 11/05/21 08:26 Dose: 175 mcg Documented by: [place] Carbonate ([place] Carbonate Er 450 Mg Tablet.Er) 450 mg PO BID [facility] Last Admin: 11/05/21 08:26 Dose: 450 mg Documented by: Magnesium Hydroxide (Milk Of Magnesia 30 Ml Oral.Susp) 30 ml PO DAILY PRN PRN Reason: Constipation Nystatin/Triamcinolone Acetonide (Nystatin/Triamcinolone Cream 15 Gm Tube) 1 appl TOPICAL BID [facility]; Protocol Last Admin: 11/05/21 08:26 Dose: 1 appl Documented by: Trazodone HCl (Trazodone Hcl 100 Mg Tablet) 100 mg PO BEDTIME [facility] Last Admin: 11/04/21 20:42 Dose: 100 mg Documented by: Trazodone HCl (Trazodone Hcl 50 Mg Tablet) 50 mg PO BEDTIME PRN PRN Reason: Insomnia Last Admin: 10/26/21 21:53 Dose: 50 mg Documented by: Allergies Allergies Allergy/AdvReac Type Severity Reaction Status Date / Time house dust Allergy Intermediate watery eyes Verified 08/20/21 11:33 adhesive Allergy Unknown Unknown Verified 10/15/21 14:32 fenofibrate Allergy Unknown Unknown Verified 10/15/21 14:32 Sulfa (Sulfonamide Allergy Unknown unknown Verified 10/15/21 14:32 Antibiotics) tomato Allergy Unknown Unknown Verified 10/15/21 14:32 Yeast Allergy Unknown Unknown Verified 10/15/21 14:32 zolpidem [From Ambien] Allergy Unknown Unknown Verified 10/15/21 14:32 lactose AdvReac Unknown Unknown Verified 10/15/21 14:32 Assessment & Plan Assessment & Plan (1) PAF (paroxysmal atrial fibrillation): Status: Acute Code(s): I48.0 - Paroxysmal atrial fibrillation (2) Schizoaffective disorder, bipolar type: Status: Acute Code(s): F25.0 - Schizoaffective disorder, bipolar type Plan The patient has been tolerating current regimen of Clozaril and Haldol to seems more organized less reactive less irritable Case reviewed extensively with Dr. Huerta from [place] patient had initially been diagnosed with schizoaffective disorder seem to respond to ECT later seem to have developed cognitive impairment and ECT was discontinued head CT scan so shows no clear stroke mood flat not overly manic or depressed I spent minutes with the patient and/or on the patient floor today, greater than?50% of which was spent counseling/coordinating care. Reason for contiued inpatient stay Substantial Risk for: inability to function and rapid decompensation
[2021-11-05] MEDS: cloZAPine 100 MG TABLET 150 MG PO (20:29)
[2021-11-05] MEDS: traZODone HCL 100 MG TABLET PO (20:33)
[2021-11-05 20:42] VITALS: BP 146/79; PULSE 71; RESP 18; TEMP 36.8; O2SAT 97
[2021-11-06] MEDS: Levothyroxine Sodium 175 MCG TABLET PO (05:53)
[2021-11-06 06:00] VITALS: BP 136/74; PULSE 81; RESP 16; TEMP 36.9; O2SAT 98
--- NOTE | 2021-11-06 06:38 | PC.NURSE ---
Levothyroxine 175mg. given at 05:30. Computer would not allow the med given to be charted. Pharmacy and other RNs (Patsy and Nba) can not change system to enter it either.
[2021-11-06 07:00] VITALS: BMI 29.9
[2021-11-06] MEDS: lamoTRIgine 25 MG TABLET 37.5 MG PO ×2 (08:47→20:31)
[2021-11-06] MEDS: Lithium Carbonate ER 450 MG TABLET.ER PO ×2 (08:48→20:34)
[2021-11-06] MEDS: HaloperidoL 1 MG TABLET 2 MG PO ×3 (08:49→20:34)
[2021-11-06] MEDS: Apixaban 5 MG TABLET PO ×2 (08:49→20:33)
[2021-11-06] MEDS: carvediloL 12.5 MG TABLET PO ×2 (08:49→20:35)
[2021-11-06] MEDS: cloZAPine 100 MG TABLET PO ×2 (08:49→12:51)
--- NOTE | 2021-11-06 08:56 | P.PNPSI_ITS ---
Subjective Subjective Date of Service: 11/06/21 Reason For Visit: Psychosis Subjective Notes: Conditional Voluntary Healthcare Proxy: Yes Guardianship: No Medical Problems Affecting Mental Status: No Interim History: pt had more fluid speech not overly agiated able to better hold conversation Medication Compliance: Yes Side effects from medications: No Attending Groups: Intermittent Review of Systems Acute medical concerns: No Mental Status Exam Mental Status Exam Patient Appearance: Well Grooomed Patient Orientation: Person, Place and Situation Level of Consciousness: Awake Patient Behavior: Appropriate, Cooperative and Passive Mood Description: Calm and Appropriate Affect Description: Constricted Patient Cognition Impaired: Yes Ability to Follow Directions: Fair Speech Pattern: Clear, Garbled (at times ) and Rambling Hallucinations: Auditory Delusions: Grandiose Thought Process: Goal Oriented Thought Content: positive for [place], positive for Poverty of Content, positive for Loose Associations, positive for Disorganized, negative for Suicidal Ideation or negative for Homicidal Ideation Judgement: Fair Diagnostics Vital Signs (24Hr): Vital Signs - 24 hr 11/06/21 18:00 Temperature 98.7 F Pulse Rate 80 Respiratory Rate 17 Blood Pressure 130/70 Pulse Oximetry 97 BMI result Body Mass Index 29.9 Labs Results: 10/21/21 06:36 10/21/21 06:36 Imaging Radiology Impressions: ITS Impressions Head CT 10/15/21 21:29 IMPRESSION: No acute intracranial pathology. Medications Medications Current Medications Acetaminophen (Acetaminophen 325 Mg Tablet) 650 mg PO Q6H PRN PRN Reason: Headache/Pain Mild Scale (1-3) Last Admin: 10/18/21 20:22 Dose: 650 mg Documented by: Al Hydroxide/Mg Hydroxide (Magnesium Hydrox/Alum Hydrox 30 Ml Oral.Susp) 30 ml PO Q6H PRN PRN Reason: Heartburn/Nausea Apixaban (Apixaban 5 Mg Tablet) 5 mg PO BID [facility] Last Admin: 11/07/21 08:30 Dose: 5 mg Documented by: Artificial Tears (Artificial Tears 15 Ml Drops) 2 drop EYE-BOTH QID [facility] Last Admin: 11/07/21 08:29 Dose: 2 drop Documented by: Carvedilol (Carvedilol 12.5 Mg Tablet) 12.5 mg PO BID [facility]; Protocol Last Admin: 11/07/21 08:31 Dose: 12.5 mg Documented by: Clozapine (Clozapine 100 Mg Tablet) 150 mg PO BEDTIME [facility] Last Admin: 11/06/21 20:34 Dose: 150 mg Documented by: Clozapine (Clozapine 100 Mg Tablet) 100 mg PO BID@0900,1300 [facility] Last Admin: 11/07/21 08:30 Dose: 100 mg Documented by: Haloperidol (Haloperidol 1 Mg Tablet) 2 mg PO TID [facility] Last Admin: 11/07/21 08:30 Dose: 2 mg Documented by: Haloperidol Lactate (Haloperidol Lactate 10 Mg/5 Ml Oral.Conc) 5 mg PO TID PRN PRN Reason: Psychosis Last Admin: 10/27/21 18:52 Dose: 5 mg Documented by: Lamotrigine (Lamotrigine 25 Mg Tablet) 37.5 mg PO BID [facility] Last Admin: 11/07/21 08:30 Dose: 37.5 mg Documented by: Levothyroxine Sodium (Levothyroxine Sodium 175 Mcg Tablet) 175 mcg PO DAILY@0600 [facility] Last Admin: 11/07/21 08:31 Dose: 175 mcg Documented by: [place] Carbonate ([place] Carbonate Er 450 Mg Tablet.Er) 450 mg PO BID [facility] Last Admin: 11/07/21 08:31 Dose: 450 mg Documented by: Magnesium Hydroxide (Milk Of Magnesia 30 Ml Oral.Susp) 30 ml PO DAILY PRN PRN Reason: Constipation Nystatin/Triamcinolone Acetonide (Nystatin/Triamcinolone Cream 15 Gm Tube) 1 appl TOPICAL BID [facility]; Protocol Last Admin: 11/07/21 08:30 Dose: 1 appl Documented by: Trazodone HCl (Trazodone Hcl 100 Mg Tablet) 100 mg PO BEDTIME [facility] Last Admin: 11/06/21 20:33 Dose: 100 mg Documented by: Trazodone HCl (Trazodone Hcl 50 Mg Tablet) 50 mg PO BEDTIME PRN PRN Reason: Insomnia Last Admin: 10/26/21 21:53 Dose: 50 mg Documented by: Allergies Allergies Allergy/AdvReac Type Severity Reaction Status Date / Time house dust Allergy Intermediate watery eyes Verified 08/20/21 11:33 adhesive Allergy Unknown Unknown Verified 10/15/21 14:32 fenofibrate Allergy Unknown Unknown Verified 10/15/21 14:32 Sulfa (Sulfonamide Allergy Unknown unknown Verified 10/15/21 14:32 Antibiotics) tomato Allergy Unknown Unknown Verified 10/15/21 14:32 Yeast Allergy Unknown Unknown Verified 10/15/21 14:32 zolpidem [From Ambien] Allergy Unknown Unknown Verified 10/15/21 14:32 lactose AdvReac Unknown Unknown Verified 10/15/21 14:32 Assessment & Plan Assessment & Plan (1) PAF (paroxysmal atrial fibrillation): Status: Acute Code(s): I48.0 - Paroxysmal atrial fibrillation (2) Schizoaffective disorder, bipolar type: Status: Acute Code(s): F25.0 - Schizoaffective disorder, bipolar type Plan The patient has been tolerating current regimen of Clozaril and Haldol to seems more organized less reactive less irritable Case reviewed extensively with Dr. Huerta from [place] patient had initially been diagnosed with schizoaffective disorder seem to respond to ECT later seem to have developed cognitive impairment and ECT was discontinued head CT scan so shows no clear stroke mood flat not overly manic or depressed case reviewed with son who felt he had done well with ect previously I spent minutes with the patient and/or on the patient floor today, greater than?50% of which was spent counseling/coordinating care. Reason for contiued inpatient stay Substantial Risk for: inability to function and rapid decompensation
[2021-11-06 18:00] VITALS: BP 130/70; PULSE 80; RESP 17; TEMP 37.1; O2SAT 97
[2021-11-06] MEDS: traZODone HCL 100 MG TABLET PO (20:33)
[2021-11-06] MEDS: cloZAPine 100 MG TABLET 150 MG PO (20:34)
[2021-11-07 08:00] VITALS: BP 146/73; PULSE 75; RESP 14; TEMP 36.8; O2SAT 97
[2021-11-07] MEDS: Artificial Tears 15 ML DROPS 2 DROP EYE-BOTH ×4 (08:29→20:15)
[2021-11-07] MEDS: cloZAPine 100 MG TABLET PO ×2 (08:30→13:44)
[2021-11-07] MEDS: Apixaban 5 MG TABLET PO ×2 (08:30→20:11)
[2021-11-07] MEDS: Nystatin/Triamcinolone Cream 15 GM TUBE 1 APPL TOPICAL ×2 (08:30→20:15)
[2021-11-07] MEDS: lamoTRIgine 25 MG TABLET 37.5 MG PO ×2 (08:30→20:09)
[2021-11-07] MEDS: HaloperidoL 1 MG TABLET 2 MG PO ×3 (08:30→20:09)
[2021-11-07] MEDS: carvediloL 12.5 MG TABLET PO ×2 (08:31→20:13)
[2021-11-07] MEDS: Lithium Carbonate ER 450 MG TABLET.ER PO ×2 (08:31→20:09)
[2021-11-07] MEDS: Levothyroxine Sodium 175 MCG TABLET PO (08:31)
[2021-11-07 19:05] VITALS: BP 146/69; PULSE 72; RESP 18; TEMP 36.8; O2SAT 97
[2021-11-07] MEDS: cloZAPine 100 MG TABLET 150 MG PO (20:07)
[2021-11-07] MEDS: traZODone HCL 100 MG TABLET PO (20:08)
--- NOTE | 2021-11-07 23:34 | P.PNPSI_ITS ---
Subjective Subjective Date of Service: 11/07/21 Reason For Visit: Psychosis Subjective Notes: Conditional Voluntary Healthcare Proxy: Yes Guardianship: No Interim History: Patient seen in psychiatric follow-up. Patient has been somewhat withdrawn seems somewhat sedated. Some reality based conversation other times more mumbling patient alert oriented aware of year president month place he is in some preoccupation with feeling like he has been to have an on 2 occasions. Seems somewhat more psychotically preoccupied today Mental Status Exam Mental Status Exam Patient Appearance: Well Grooomed Patient Orientation: Person, Place and Situation Level of Consciousness: Awake Patient Behavior: Passive, Anxious and Fatigued Mood Description: Constricted and Apprehensive Affect Description: Constricted Ability to Follow Directions: Fair Speech Pattern: Garbled (at times ), Rambling and Mumbled Hallucinations: Auditory Delusions: Grandiose Thought Process: Goal Oriented Thought Content: positive for [place], positive for Poverty of Content, positive for Loose Associations, positive for Disorganized, negative for Suicidal Ideation or negative for Homicidal Ideation Judgement: Fair Diagnostics Vital Signs (24Hr): Vital Signs - 24 hr 11/07/21 08:00 11/07/21 19:05 Temperature 98.2 F 98.2 F Pulse Rate 75 72 Respiratory Rate 14 18 Blood Pressure 146/73 H 146/69 H Pulse Oximetry 97 97 BMI result Body Mass Index 29.9 Labs Results: 10/21/21 06:36 10/21/21 06:36 Imaging Radiology Impressions: ITS Impressions Head CT 10/15/21 21:29 IMPRESSION: No acute intracranial pathology. Medications Medications Current Medications Acetaminophen (Acetaminophen 325 Mg Tablet) 650 mg PO Q6H PRN PRN Reason: Headache/Pain Mild Scale (1-3) Last Admin: 10/18/21 20:22 Dose: 650 mg Documented by: Al Hydroxide/Mg Hydroxide (Magnesium Hydrox/Alum Hydrox 30 Ml Oral.Susp) 30 ml PO Q6H PRN PRN Reason: Heartburn/Nausea Apixaban (Apixaban 5 Mg Tablet) 5 mg PO BID [facility] Last Admin: 11/07/21 20:11 Dose: 5 mg Documented by: Artificial Tears (Artificial Tears 15 Ml Drops) 2 drop EYE-BOTH QID [facility] Last Admin: 11/07/21 20:15 Dose: 2 drop Documented by: Carvedilol (Carvedilol 12.5 Mg Tablet) 12.5 mg PO BID [facility]; Protocol Last Admin: 11/07/21 20:13 Dose: 12.5 mg Documented by: Clozapine (Clozapine 100 Mg Tablet) 150 mg PO BEDTIME [facility] Last Admin: 11/07/21 20:07 Dose: 150 mg Documented by: Clozapine (Clozapine 100 Mg Tablet) 100 mg PO BID@0900,1300 [facility] Last Admin: 11/07/21 13:44 Dose: 100 mg Documented by: Haloperidol (Haloperidol 1 Mg Tablet) 2 mg PO TID [facility] Last Admin: 11/07/21 20:09 Dose: 2 mg Documented by: Haloperidol Lactate (Haloperidol Lactate 10 Mg/5 Ml Oral.Conc) 5 mg PO TID PRN PRN Reason: Psychosis Last Admin: 10/27/21 18:52 Dose: 5 mg Documented by: Lamotrigine (Lamotrigine 25 Mg Tablet) 37.5 mg PO BID [facility] Last Admin: 11/07/21 20:09 Dose: 37.5 mg Documented by: Levothyroxine Sodium (Levothyroxine Sodium 175 Mcg Tablet) 175 mcg PO DAILY@0600 [facility] Last Admin: 11/07/21 08:31 Dose: 175 mcg Documented by: [place] Carbonate ([place] Carbonate Er 450 Mg Tablet.Er) 450 mg PO BID [facility] Last Admin: 11/07/21 20:09 Dose: 450 mg Documented by: Magnesium Hydroxide (Milk Of Magnesia 30 Ml Oral.Susp) 30 ml PO DAILY PRN PRN Reason: Constipation Nystatin/Triamcinolone Acetonide (Nystatin/Triamcinolone Cream 15 Gm Tube) 1 appl TOPICAL BID [facility]; Protocol Last Admin: 11/07/21 20:15 Dose: 1 appl Documented by: Trazodone HCl (Trazodone Hcl 100 Mg Tablet) 100 mg PO BEDTIME [facility] Last Admin: 11/07/21 20:08 Dose: 100 mg Documented by: Trazodone HCl (Trazodone Hcl 50 Mg Tablet) 50 mg PO BEDTIME PRN PRN Reason: Insomnia Last Admin: 10/26/21 21:53 Dose: 50 mg Documented by: Allergies Allergies Allergy/AdvReac Type Severity Reaction Status Date / Time house dust Allergy Intermediate watery eyes Verified 08/20/21 11:33 adhesive Allergy Unknown Unknown Verified 10/15/21 14:32 fenofibrate Allergy Unknown Unknown Verified 10/15/21 14:32 Sulfa (Sulfonamide Allergy Unknown unknown Verified 10/15/21 14:32 Antibiotics) tomato Allergy Unknown Unknown Verified 10/15/21 14:32 Yeast Allergy Unknown Unknown Verified 10/15/21 14:32 zolpidem [From Ambien] Allergy Unknown Unknown Verified 10/15/21 14:32 lactose AdvReac Unknown Unknown Verified 10/15/21 14:32 Assessment & Plan Assessment & Plan (1) PAF (paroxysmal atrial fibrillation): Status: Acute Code(s): I48.0 - Paroxysmal atrial fibrillation (2) Schizoaffective disorder, bipolar type: Status: Acute Code(s): F25.0 - Schizoaffective disorder, bipolar type Plan The patient has been tolerating current regimen of Clozaril and Haldol to seems more organized less reactive less irritable Case reviewed extensively with Dr. Huerta from [place] patient had initially been diagnosed with schizoaffective disorder seem to respond to ECT later seem to have developed cognitive impairment and ECT was discontinued head CT scan so shows no clear stroke mood flat not overly manic or depressed case reviewed with son who felt he had done well with ect previously Current note for 11/07/2021 Patient seen in psychiatric follow-up. Patient withdrawn seemed more rambling but could answer concrete questions. Difficulty giving clear information as to what he is thinking mood seemed more anxious and dysphoric difficult to evaluate cognitive status but does answer appropriately orientation questions I spent minutes with the patient and/or on the patient floor today, greater than?50% of which was spent counseling/coordinating care. Reason for contiued inpatient stay Substantial Risk for: inability to function and rapid decompensation
[2021-11-08 07:40] VITALS: BP 136/78; PULSE 75; RESP 16; TEMP 36.3; O2SAT 97
[2021-11-08] MEDS: lamoTRIgine 25 MG TABLET 37.5 MG PO ×2 (08:58→20:30)
[2021-11-08] MEDS: Lithium Carbonate ER 450 MG TABLET.ER PO ×2 (08:59→20:32)
[2021-11-08] MEDS: carvediloL 12.5 MG TABLET PO ×2 (09:00→20:28)
[2021-11-08] MEDS: Artificial Tears 15 ML DROPS 2 DROP EYE-BOTH ×3 (09:00→20:33)
[2021-11-08] MEDS: Nystatin/Triamcinolone Cream 15 GM TUBE 1 APPL TOPICAL ×2 (09:00→20:38)
[2021-11-08] MEDS: cloZAPine 100 MG TABLET PO ×2 (09:00→12:52)
[2021-11-08] MEDS: Apixaban 5 MG TABLET PO ×2 (09:00→20:32)
[2021-11-08] MEDS: HaloperidoL 1 MG TABLET 2 MG PO ×3 (09:00→20:29)
--- NOTE | 2021-11-08 14:42 | HO.PSYCHPN ---
Subjective Subjective Date of Service: 11/08/21 Reason For Visit: Psychosis Interim History: chart reviewed; pt discussed with nursing staff pt says he's taking one day at a time... he says he's sleeping better, though woke up to go to the bathroom 1-2 times. Denies AVH. 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 Pt denies complaints or requests. Mental Status Exam Mental Status Exam Narrative: Patient Appearance:?adequately Grooomed Patient Orientation:?Person, Place and Situation Level of Consciousness:?Awake Patient Behavior:?calm, friendly Mood Description:? one day at a time Affect Description:?euthymic Ability to Follow Directions:?Fair Speech Pattern:?Garbled (at times ), Rambling and Mumbled Hallucinations:?Denies AH Delusions:?none expressed though hx of Grandiose Thought Process:?Goal Oriented Thought Content:?positive for [place]; no SI/HI Judgement:?Fair Diagnostics Vital Signs (24Hr): Vital Signs - 24 hr 11/07/21 19:05 11/08/21 07:40 Temperature 98.2 F 97.4 F Pulse Rate 72 75 Respiratory Rate 18 16 Blood Pressure 146/69 H 136/78 Pulse Oximetry 97 97 BMI result Body Mass Index 29.9 Labs Results: 10/21/21 06:36 10/21/21 06:36 Imaging Radiology Impressions: ITS Impressions Head CT 10/15/21 21:29 IMPRESSION: No acute intracranial pathology. Medications Medications Current Medications Acetaminophen (Acetaminophen 325 Mg Tablet) 650 mg PO Q6H PRN PRN Reason: Headache/Pain Mild Scale (1-3) Last Admin: 10/18/21 20:22 Dose: 650 mg Documented by: Al Hydroxide/Mg Hydroxide (Magnesium Hydrox/Alum Hydrox 30 Ml Oral.Susp) 30 ml PO Q6H PRN PRN Reason: Heartburn/Nausea Apixaban (Apixaban 5 Mg Tablet) 5 mg PO BID [facility] Last Admin: 11/08/21 09:00 Dose: 5 mg Documented by: Artificial Tears (Artificial Tears 15 Ml Drops) 2 drop EYE-BOTH QID [facility] Last Admin: 11/08/21 12:52 Dose: 2 drop Documented by: Carvedilol (Carvedilol 12.5 Mg Tablet) 12.5 mg PO BID [facility]; Protocol Last Admin: 11/08/21 09:00 Dose: 12.5 mg Documented by: Clozapine (Clozapine 100 Mg Tablet) 150 mg PO BEDTIME [facility] Last Admin: 11/07/21 20:07 Dose: 150 mg Documented by: Clozapine (Clozapine 100 Mg Tablet) 100 mg PO BID@0900,1300 [facility] Last Admin: 11/08/21 12:52 Dose: 100 mg Documented by: Haloperidol (Haloperidol 1 Mg Tablet) 2 mg PO TID [facility] Last Admin: 11/08/21 09:00 Dose: 2 mg Documented by: Haloperidol Lactate (Haloperidol Lactate 10 Mg/5 Ml Oral.Conc) 5 mg PO TID PRN PRN Reason: Psychosis Last Admin: 10/27/21 18:52 Dose: 5 mg Documented by: Lamotrigine (Lamotrigine 25 Mg Tablet) 37.5 mg PO BID [facility] Last Admin: 11/08/21 08:58 Dose: 37.5 mg Documented by: Levothyroxine Sodium (Levothyroxine Sodium 175 Mcg Tablet) 175 mcg PO DAILY@0600 [facility] Last Admin: 11/07/21 08:31 Dose: 175 mcg Documented by: [place] Carbonate ([place] Carbonate Er 450 Mg Tablet.Er) 450 mg PO BID [facility] Last Admin: 11/08/21 08:59 Dose: 450 mg Documented by: Magnesium Hydroxide (Milk Of Magnesia 30 Ml Oral.Susp) 30 ml PO DAILY PRN PRN Reason: Constipation Nystatin/Triamcinolone Acetonide (Nystatin/Triamcinolone Cream 15 Gm Tube) 1 appl TOPICAL BID [facility]; Protocol Last Admin: 11/08/21 09:00 Dose: 1 appl Documented by: Trazodone HCl (Trazodone Hcl 100 Mg Tablet) 100 mg PO BEDTIME [facility] Last Admin: 11/07/21 20:08 Dose: 100 mg Documented by: Trazodone HCl (Trazodone Hcl 50 Mg Tablet) 50 mg PO BEDTIME PRN PRN Reason: Insomnia Last Admin: 10/26/21 21:53 Dose: 50 mg Documented by: Allergies Allergies Allergy/AdvReac Type Severity Reaction Status Date / Time house dust Allergy Intermediate watery eyes Verified 08/20/21 11:33 adhesive Allergy Unknown Unknown Verified 10/15/21 14:32 fenofibrate Allergy Unknown Unknown Verified 10/15/21 14:32 Sulfa (Sulfonamide Allergy Unknown unknown Verified 10/15/21 14:32 Antibiotics) tomato Allergy Unknown Unknown Verified 10/15/21 14:32 Yeast Allergy Unknown Unknown Verified 10/15/21 14:32 zolpidem [From Ambien] Allergy Unknown Unknown Verified 10/15/21 14:32 lactose AdvReac Unknown Unknown Verified 10/15/21 14:32 Assessment & Plan Assessment & Plan (1) PAF (paroxysmal atrial fibrillation): Status: Acute Code(s): I48.0 - Paroxysmal atrial fibrillation (2) Schizoaffective disorder, bipolar type: Status: Acute Code(s): F25.0 - Schizoaffective disorder, bipolar type Plan The patient has been tolerating current regimen of Clozaril and Haldol to seems more organized less reactive less irritable Case reviewed extensively with Dr. Huerta from [place] patient had initially been diagnosed with schizoaffective disorder seem to respond to ECT later seem to have developed cognitive impairment and ECT was discontinued head CT scan so shows no clear stroke mood flat not overly manic or depressed case reviewed with son who felt he had done well with ect previously Current note for 11/07/2021 Patient seen in psychiatric follow-up. Patient withdrawn seemed more rambling but could answer concrete questions. 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 Reason for contiued inpatient stay Substantial Risk for: med/psych decompensation
[2021-11-08 19:45] VITALS: BP 129/68; PULSE 76; RESP 16; TEMP 36.1; O2SAT 97
[2021-11-08] MEDS: cloZAPine 100 MG TABLET 150 MG PO (20:29)
[2021-11-08] MEDS: traZODone HCL 100 MG TABLET PO (20:32)
[2021-11-08] MEDS: traZODone HCL 50 MG TABLET PO (22:27)
[2021-11-09 08:06] VITALS: BP 139/69; PULSE 78; RESP 14; TEMP 36.9; O2SAT 97
[2021-11-09] MEDS: carvediloL 12.5 MG TABLET PO ×2 (08:11→20:27)
[2021-11-09] MEDS: cloZAPine 100 MG TABLET PO ×2 (08:11→14:19)
[2021-11-09] MEDS: Lithium Carbonate ER 450 MG TABLET.ER PO ×2 (08:11→20:30)
[2021-11-09] MEDS: Levothyroxine Sodium 175 MCG TABLET PO (08:11)
[2021-11-09] MEDS: HaloperidoL 1 MG TABLET 2 MG PO ×3 (08:11→20:28)
[2021-11-09] MEDS: Apixaban 5 MG TABLET PO ×2 (08:11→20:26)
[2021-11-09] MEDS: lamoTRIgine 25 MG TABLET 37.5 MG PO ×2 (08:12→20:29)
[2021-11-09] MEDS: Nystatin/Triamcinolone Cream 15 GM TUBE 1 APPL TOPICAL ×2 (08:14→20:31)
[2021-11-09] MEDS: Artificial Tears 15 ML DROPS 2 DROP EYE-BOTH ×4 (08:14→20:27)
[2021-11-09] MEDS: cloZAPine 100 MG TABLET 150 MG PO (20:27)
[2021-11-09] MEDS: traZODone HCL 100 MG TABLET PO (20:31)
[2021-11-09 21:01] VITALS: BP 148/76; PULSE 67; RESP 18; TEMP 37.1; O2SAT 96
--- NOTE | 2021-11-09 23:21 | HO.PSYCHPN ---
Subjective Subjective Date of Service: 11/09/21 Reason For Visit: Psychosis Interim History: pt says he's ok... getting ready for whatever will happen. Tells check writer his son visited which he said was good. Denies SI/HI, feels safe; denies AVH. Mental Status Exam Mental Status Exam Narrative: Patient Appearance:?adequately Grooomed Patient Orientation:?Person, Place and Situation Level of Consciousness:?Awake Patient Behavior:?calm, friendly Mood Description:? one day at a time Affect Description:?euthymic Ability to Follow Directions:?Fair Speech Pattern:?Garbled (at times ), Rambling and Mumbled Hallucinations:?Denies AH Delusions:?none expressed though hx of Grandiose Thought Process:?Goal Oriented Thought Content:?positive for [place]; no SI/HI Judgement:?Fair Diagnostics Vital Signs (24Hr): Vital Signs - 24 hr 11/09/21 08:06 11/09/21 21:01 Temperature 98.5 F 98.7 F Pulse Rate 78 67 Respiratory Rate 14 18 Blood Pressure 139/69 148/76 H Pulse Oximetry 97 96 BMI result Body Mass Index 29.9 Labs Results: 10/21/21 06:36 10/21/21 06:36 Imaging Radiology Impressions: ITS Impressions Head CT 10/15/21 21:29 IMPRESSION: No acute intracranial pathology. Medications Medications Current Medications Acetaminophen (Acetaminophen 325 Mg Tablet) 650 mg PO Q6H PRN PRN Reason: Headache/Pain Mild Scale (1-3) Last Admin: 10/18/21 20:22 Dose: 650 mg Documented by: Al Hydroxide/Mg Hydroxide (Magnesium Hydrox/Alum Hydrox 30 Ml Oral.Susp) 30 ml PO Q6H PRN PRN Reason: Heartburn/Nausea Apixaban (Apixaban 5 Mg Tablet) 5 mg PO BID [facility] Last Admin: 11/09/21 20:26 Dose: 5 mg Documented by: Artificial Tears (Artificial Tears 15 Ml Drops) 2 drop EYE-BOTH QID [facility] Last Admin: 11/09/21 20:27 Dose: 2 drop Documented by: Carvedilol (Carvedilol 12.5 Mg Tablet) 12.5 mg PO BID [facility]; Protocol Last Admin: 11/09/21 20:27 Dose: 12.5 mg Documented by: Clozapine (Clozapine 100 Mg Tablet) 150 mg PO BEDTIME [facility] Last Admin: 11/09/21 20:27 Dose: 150 mg Documented by: Clozapine (Clozapine 100 Mg Tablet) 100 mg PO BID@0900,1300 [facility] Last Admin: 11/09/21 14:19 Dose: 100 mg Documented by: Haloperidol (Haloperidol 1 Mg Tablet) 2 mg PO TID [facility] Last Admin: 11/09/21 20:28 Dose: 2 mg Documented by: Haloperidol Lactate (Haloperidol Lactate 10 Mg/5 Ml Oral.Conc) 5 mg PO TID PRN PRN Reason: Psychosis Last Admin: 10/27/21 18:52 Dose: 5 mg Documented by: Lamotrigine (Lamotrigine 25 Mg Tablet) 37.5 mg PO BID [facility] Last Admin: 11/09/21 20:29 Dose: 37.5 mg Documented by: Levothyroxine Sodium (Levothyroxine Sodium 175 Mcg Tablet) 175 mcg PO DAILY@0600 [facility] Last Admin: 11/09/21 08:11 Dose: 175 mcg Documented by: [place] Carbonate ([place] Carbonate Er 450 Mg Tablet.Er) 450 mg PO BID [facility] Last Admin: 11/09/21 20:30 Dose: 450 mg Documented by: Magnesium Hydroxide (Milk Of Magnesia 30 Ml Oral.Susp) 30 ml PO DAILY PRN PRN Reason: Constipation Nystatin/Triamcinolone Acetonide (Nystatin/Triamcinolone Cream 15 Gm Tube) 1 appl TOPICAL BID [facility]; Protocol Last Admin: 11/09/21 20:31 Dose: 1 appl Documented by: Trazodone HCl (Trazodone Hcl 100 Mg Tablet) 100 mg PO BEDTIME [facility] Last Admin: 11/09/21 20:31 Dose: 100 mg Documented by: Trazodone HCl (Trazodone Hcl 50 Mg Tablet) 50 mg PO BEDTIME PRN PRN Reason: Insomnia Last Admin: 11/08/21 22:27 Dose: 50 mg Documented by: Allergies Allergies Allergy/AdvReac Type Severity Reaction Status Date / Time house dust Allergy Intermediate watery eyes Verified 08/20/21 11:33 adhesive Allergy Unknown Unknown Verified 10/15/21 14:32 fenofibrate Allergy Unknown Unknown Verified 10/15/21 14:32 Sulfa (Sulfonamide Allergy Unknown unknown Verified 10/15/21 14:32 Antibiotics) tomato Allergy Unknown Unknown Verified 10/15/21 14:32 Yeast Allergy Unknown Unknown Verified 10/15/21 14:32 zolpidem [From Ambien] Allergy Unknown Unknown Verified 10/15/21 14:32 lactose AdvReac Unknown Unknown Verified 10/15/21 14:32 Assessment & Plan Assessment & Plan (1) PAF (paroxysmal atrial fibrillation): Status: Acute Code(s): I48.0 - Paroxysmal atrial fibrillation (2) Schizoaffective disorder, bipolar type: Status: Acute Code(s): F25.0 - Schizoaffective disorder, bipolar type Plan The patient has been tolerating current regimen of Clozaril and Haldol to seems more organized less reactive less irritable Case reviewed extensively with Dr. Huerta from [place] patient had initially been diagnosed with schizoaffective disorder seem to respond to ECT later seem to have developed cognitive impairment and ECT was discontinued head CT scan so shows no clear stroke mood flat not overly manic or depressed case reviewed with son who felt he had done well with ect previously Current note for 11/07/2021 Patient seen in psychiatric follow-up. Patient withdrawn seemed more rambling but could answer concrete questions. Difficulty giving clear information as to what he is thinking mood seemed more anxious and dysphoric difficult to evaluate cognitive status but does answer appropriately orientation questions 11/08 check writer covering; no changes to tx plan 11/09 check writer covering; no changes to tx plan I spent minutes with the patient and/or on the patient floor today, greater than?50% of which was spent counseling/coordinating care. Reason for contiued inpatient stay Substantial Risk for: med/psych decompensation
[2021-11-10] MEDS: Levothyroxine Sodium 175 MCG TABLET PO (06:08)
[2021-11-10 07:59] LABS: Neut%MD 69.8 %; Neutrophils Absolute Auto 6.4 x10*3/uL (2.0-8.3); WBCANC 9.1 X10*3/uL
[2021-11-10 08:00] VITALS: BP 125/65; PULSE 76; RESP 16; TEMP 36.6; O2SAT 98
[2021-11-10] MEDS: Lithium Carbonate ER 450 MG TABLET.ER PO ×2 (08:43→20:25)
[2021-11-10] MEDS: lamoTRIgine 25 MG TABLET 37.5 MG PO ×2 (08:43→20:23)
[2021-11-10] MEDS: carvediloL 12.5 MG TABLET PO ×2 (08:43→20:21)
[2021-11-10] MEDS: Artificial Tears 15 ML DROPS 2 DROP EYE-BOTH ×4 (08:43→20:21)
[2021-11-10] MEDS: HaloperidoL 1 MG TABLET 2 MG PO ×3 (08:43→20:23)
[2021-11-10] MEDS: cloZAPine 100 MG TABLET PO ×2 (08:43→13:55)
[2021-11-10] MEDS: Apixaban 5 MG TABLET PO ×2 (08:43→20:21)
[2021-11-10] MEDS: Nystatin/Triamcinolone Cream 15 GM TUBE 1 APPL TOPICAL ×2 (08:44→20:27)
--- NOTE | 2021-11-10 12:40 | HO.PSYCHPN ---
Subjective Subjective Date of Service: 11/10/21 Reason For Visit: Psychosis Subjective Notes: Conditional Voluntary Interim History: The nursing staff reported the patient has been isolative and withdrawn confused at times and he still delusional but mostly redirectable. Dr. Covington contacted removed he can apparently he was not so sure about the diagnosis of dementia but it is clear that decides he psychotic symptoms, the patient is disoriented, he has poor short-term memory and he has clear signs and symptoms of dementia. Also, since he has suffered for psychotic symptoms nearly all his adult life, he is at higher risk of developing early dementia. Today on team, we discussed the possibility of doing a [place] test today. On interview, the patient was pleasantly confused and refused to engage on interview, resting on his bed. Mental Status Exam Mental Status Exam Patient Appearance: Well Grooomed Patient Orientation: Person Level of Consciousness: Awake Patient Behavior: Guarded and Suspicious Mood Description: Labile Affect Description: Constricted Patient Cognition Impaired: Yes Ability to Follow Directions: Fair Speech Pattern: Appropriate Hallucinations: Auditory Delusions: Paranoid Ideation Thought Process: Evasive and Word Salad Thought Content: positive for Disorganized Judgement: Poor Diagnostics Vital Signs (24Hr): Vital Signs - 24 hr 11/09/21 21:01 11/10/21 08:00 Temperature 98.7 F 97.9 F Pulse Rate 67 76 Respiratory Rate 18 16 Blood Pressure 148/76 H 125/65 Pulse Oximetry 96 98 BMI result Body Mass Index 29.9 Labs Results: 10/21/21 06:36 10/21/21 06:36 Labs: Laboratory Results - last 48 hr 11/10/21 07:53 Absolute Neuts (auto) 6.4 Imaging Radiology Impressions: ITS Impressions Head CT 10/15/21 21:29 IMPRESSION: No acute intracranial pathology. Medications Medications Current Medications Acetaminophen (Acetaminophen 325 Mg Tablet) 650 mg PO Q6H PRN PRN Reason: Headache/Pain Mild Scale (1-3) Last Admin: 10/18/21 20:22 Dose: 650 mg Documented by: Al Hydroxide/Mg Hydroxide (Magnesium Hydrox/Alum Hydrox 30 Ml Oral.Susp) 30 ml PO Q6H PRN PRN Reason: Heartburn/Nausea Apixaban (Apixaban 5 Mg Tablet) 5 mg PO BID [facility] Last Admin: 11/10/21 08:43 Dose: 5 mg Documented by: Artificial Tears (Artificial Tears 15 Ml Drops) 2 drop EYE-BOTH QID [facility] Last Admin: 11/10/21 08:43 Dose: 2 drop Documented by: Carvedilol (Carvedilol 12.5 Mg Tablet) 12.5 mg PO BID [facility]; Protocol Last Admin: 11/10/21 08:43 Dose: 12.5 mg Documented by: Clozapine (Clozapine 100 Mg Tablet) 150 mg PO BEDTIME [facility] Last Admin: 11/09/21 20:27 Dose: 150 mg Documented by: Clozapine (Clozapine 100 Mg Tablet) 100 mg PO BID@0900,1300 [facility] Last Admin: 11/10/21 08:43 Dose: 100 mg Documented by: Haloperidol (Haloperidol 1 Mg Tablet) 2 mg PO TID [facility] Last Admin: 11/10/21 08:43 Dose: 2 mg Documented by: Haloperidol Lactate (Haloperidol Lactate 10 Mg/5 Ml Oral.Conc) 5 mg PO TID PRN PRN Reason: Psychosis Last Admin: 10/27/21 18:52 Dose: 5 mg Documented by: Lamotrigine (Lamotrigine 25 Mg Tablet) 37.5 mg PO BID [facility] Last Admin: 11/10/21 08:43 Dose: 37.5 mg Documented by: Levothyroxine Sodium (Levothyroxine Sodium 175 Mcg Tablet) 175 mcg PO DAILY@0600 [facility] Last Admin: 11/10/21 06:08 Dose: 175 mcg Documented by: [place] Carbonate ([place] Carbonate Er 450 Mg Tablet.Er) 450 mg PO BID [facility] Last Admin: 11/10/21 08:43 Dose: 450 mg Documented by: Magnesium Hydroxide (Milk Of Magnesia 30 Ml Oral.Susp) 30 ml PO DAILY PRN PRN Reason: Constipation Nystatin/Triamcinolone Acetonide (Nystatin/Triamcinolone Cream 15 Gm Tube) 1 appl TOPICAL BID [facility]; Protocol Last Admin: 11/10/21 08:44 Dose: 1 appl Documented by: Trazodone HCl (Trazodone Hcl 100 Mg Tablet) 100 mg PO BEDTIME [facility] Last Admin: 11/09/21 20:31 Dose: 100 mg Documented by: Trazodone HCl (Trazodone Hcl 50 Mg Tablet) 50 mg PO BEDTIME PRN PRN Reason: Insomnia Last Admin: 11/08/21 22:27 Dose: 50 mg Documented by: Allergies Allergies Allergy/AdvReac Type Severity Reaction Status Date / Time house dust Allergy Intermediate watery eyes Verified 08/20/21 11:33 adhesive Allergy Unknown Unknown Verified 10/15/21 14:32 fenofibrate Allergy Unknown Unknown Verified 10/15/21 14:32 Sulfa (Sulfonamide Allergy Unknown unknown Verified 10/15/21 14:32 Antibiotics) tomato Allergy Unknown Unknown Verified 10/15/21 14:32 Yeast Allergy Unknown Unknown Verified 10/15/21 14:32 zolpidem [From Ambien] Allergy Unknown Unknown Verified 10/15/21 14:32 lactose AdvReac Unknown Unknown Verified 10/15/21 14:32 Assessment & Plan Assessment & Plan (1) PAF (paroxysmal atrial fibrillation): Status: Acute Code(s): I48.0 - Paroxysmal atrial fibrillation (2) Schizoaffective disorder, bipolar type: Status: Acute Code(s): F25.0 - Schizoaffective disorder, bipolar type Plan The patient has been tolerating current regimen of Clozaril and Haldol to seems more organized less reactive less irritable Case reviewed extensively with Dr. Huerta from [place] patient had initially been diagnosed with schizoaffective disorder seem to respond to ECT later seem to have developed cognitive impairment and ECT was discontinued; head CT scan shows no clear stroke; mood flat not overly manic or depressed case reviewed with son who felt he had done well with ect previously Plan 1. Get lithium level and basic metabolic panel for tomorrow. His ANC is within normal limits. 2. Continue same medications. 3. Gather collateral information. I spent ___20___ minutes with the patient and/or on the patient floor today, greater than?50% of which was spent counseling/coordinating care. Reason for contiued inpatient stay Substantial Risk for: inability to function, rapid decompensation and med/psych decompensation
[2021-11-10] MEDS: cloZAPine 100 MG TABLET 150 MG PO (20:22)
[2021-11-10] MEDS: traZODone HCL 100 MG TABLET PO (20:23)
[2021-11-10 20:52] VITALS: BP 133/60; PULSE 65; RESP 18; TEMP 37.1; O2SAT 97
[2021-11-10] MEDS: traZODone HCL 50 MG TABLET PO (21:27)
[2021-11-11 06:00] VITALS: BP 153/81; PULSE 67; RESP 20; TEMP 36.4; O2SAT 99
[2021-11-11] MEDS: Levothyroxine Sodium 175 MCG TABLET PO (06:36)
[2021-11-11 07:21] LABS: MANUAL DIFF FLAG NO
[2021-11-11 07:25] LABS: Basophils Absolute Auto 0.1 X10*3/uL (0.0-0.2); Basophils Percent Auto 0.6 % (0-2); Eosinophils Absolute Auto 0.4 X10*3/uL (0.0-0.4); Eosinophils Percent Auto 3.6 % (0-4); Hematocrit 39.5 % (42.0-52.0); Hemoglobin 12.5 g/dl (14.0-18.0); Imm Gran Abs Auto 0.05 X10*3/uL (0.00-0.03); Imm Gran Pct Auto 0.5 % (0.0-0.4); Lymphocytes Absolute Auto 1.5 X10*3/uL (1.2-4.9); Lymphocytes Percent Auto 14.9 % (20-40); Mean Corpuscular HGB Conc 31.6 g/dl (31.0-36.0); Mean Corpuscular Hemoglobin 28.6 pg (27.0-33.0); Mean Corpuscular Volume 90.4 fL (80.0-98.0); Mean Platelet Volume 9.9 fL (9.4-12.4); Monocytes Absolute Auto 0.8 X10*3/uL (0.1-1.2); Monocytes Percent Auto 7.8 % (2-11); Neutrophils Absolute Auto 7.5 x10*3/uL (2.0-8.3); Neutrophils Percent Auto 72.6 % (45-73); Platelet Count 340 X10*3/uL (160-400); Red Blood Count 4.37 X10*6/uL (4.60-5.80); Red Cell Distribution Width 13.5 % (11.0-16.0); White Blood Count 10.4 X10*3/uL (4.8-10.8)
[2021-11-11 07:38] LABS: Lithium 0.78 mmol/L (0.60-1.20)
[2021-11-11] MEDS: Apixaban 5 MG TABLET PO ×2 (08:19→20:15)
[2021-11-11] MEDS: carvediloL 12.5 MG TABLET PO ×2 (08:19→20:17)
[2021-11-11] MEDS: cloZAPine 100 MG TABLET PO ×2 (08:20→12:04)
[2021-11-11] MEDS: HaloperidoL 1 MG TABLET 2 MG PO ×3 (08:20→20:19)
[2021-11-11] MEDS: lamoTRIgine 25 MG TABLET 37.5 MG PO ×2 (08:20→20:19)
[2021-11-11] MEDS: Lithium Carbonate ER 450 MG TABLET.ER PO ×2 (08:20→20:20)
[2021-11-11] MEDS: Artificial Tears 15 ML DROPS 2 DROP EYE-BOTH ×4 (09:42→20:15)
[2021-11-11] MEDS: Nystatin/Triamcinolone Cream 15 GM TUBE 1 APPL TOPICAL ×2 (09:43→20:21)
--- NOTE | 2021-11-11 11:46 | P.PNPSI_ITS ---
Subjective Subjective Date of Service: 11/11/21 Reason For Visit: Psychosis Subjective Notes: Conditional Voluntary Interim History: The nursing staff reported the patient has been visible in the treatment area, he interact with some peers. On interview, the staff has reported that he can have short periods of clarity and clear conversation but later he started mumbling. On interview, the patient denies new symptoms, remains pleasantly confused and easily redirectable. We will try to do a [place] today Mental Status Exam Mental Status Exam Patient Appearance: Well Grooomed Patient Orientation: Person Level of Consciousness: Awake Patient Behavior: Cooperative Mood Description: Constricted Affect Description: Calm Patient Cognition Impaired: Yes Ability to Follow Directions: Good Speech Pattern: Clear Hallucinations: None Delusions: Not Present Thought Process: Distracted Thought Content: positive for [place] and positive for P[place] of Content Judgement: Poor Diagnostics Vital Signs (24Hr): Vital Signs - 24 hr 11/10/21 20:52 11/11/21 06:00 Temperature 98.7 F 97.5 F Pulse Rate 65 67 Respiratory Rate 18 20 Blood Pressure 133/60 153/81 H Pulse Oximetry 97 99 BMI result Body Mass Index 29.9 Labs Results: 11/11/21 07:17 10/21/21 06:36 Labs: Laboratory Results - last 48 hr 11/10/21 11/11/21 11/11/21 07:53 07:17 07:17 WBC 10.4 RBC 4.37 L Hgb 12.5 L Hct 39.5 L MCV 90.4 MCH 28.6 MCHC 31.6 RDW 13.5 Plt Count 340 MPV 9.9 Immature Gran % (Auto) 0.5 H Neut % (Auto) 72.6 Lymph % (Auto) 14.9 L [place] % (Auto) 7.8 Eos % (Auto) 3.6 Baso % (Auto) 0.6 Lymph # (Auto) 1.5 [place] # (Auto) 0.8 Eos # (Auto) 0.4 Baso # (Auto) 0.1 Abs Immat Gran (auto) 0.05 H Absolute Neuts (auto) 6.4 7.5 Absolute Nucleated RBC 0.000 Nucleated RBC % (auto) 0.0 Etta 0.78 Imaging Radiology Impressions: ITS Impressions Head CT 10/15/21 21:29 IMPRESSION: No acute intracranial pathology. Medications Medications Current Medications Acetaminophen (Acetaminophen 325 Mg Tablet) 650 mg PO Q6H PRN PRN Reason: Headache/Pain Mild Scale (1-3) Last Admin: 10/18/21 20:22 Dose: 650 mg Documented by: Al Hydroxide/Mg Hydroxide (Magnesium Hydrox/Alum Hydrox 30 Ml Oral.Susp) 30 ml PO Q6H PRN PRN Reason: Heartburn/Nausea Apixaban (Apixaban 5 Mg Tablet) 5 mg PO BID [facility] Last Admin: 11/11/21 08:19 Dose: 5 mg Documented by: Artificial Tears (Artificial Tears 15 Ml Drops) 2 drop EYE-BOTH QID [facility] Last Admin: 11/11/21 09:42 Dose: 2 drop Documented by: Carvedilol (Carvedilol 12.5 Mg Tablet) 12.5 mg PO BID [facility]; Protocol Last Admin: 11/11/21 08:19 Dose: 12.5 mg Documented by: Clozapine (Clozapine 100 Mg Tablet) 150 mg PO BEDTIME [facility] Last Admin: 11/10/21 20:22 Dose: 150 mg Documented by: Clozapine (Clozapine 100 Mg Tablet) 100 mg PO BID@0900,1300 [facility] Last Admin: 11/11/21 08:20 Dose: 100 mg Documented by: Haloperidol (Haloperidol 1 Mg Tablet) 2 mg PO TID [facility] Last Admin: 11/11/21 08:20 Dose: 2 mg Documented by: Haloperidol Lactate (Haloperidol Lactate 10 Mg/5 Ml Oral.Conc) 5 mg PO TID PRN PRN Reason: Psychosis Last Admin: 10/27/21 18:52 Dose: 5 mg Documented by: Lamotrigine (Lamotrigine 25 Mg Tablet) 37.5 mg PO BID [facility] Last Admin: 11/11/21 08:20 Dose: 37.5 mg Documented by: Levothyroxine Sodium (Levothyroxine Sodium 175 Mcg Tablet) 175 mcg PO DAILY@0600 [facility] Last Admin: 11/11/21 06:36 Dose: 175 mcg Documented by: [place] Carbonate ([place] Carbonate Er 450 Mg Tablet.Er) 450 mg PO BID [facility] Last Admin: 11/11/21 08:20 Dose: 450 mg Documented by: Magnesium Hydroxide (Milk Of Magnesia 30 Ml Oral.Susp) 30 ml PO DAILY PRN PRN Reason: Constipation Nystatin/Triamcinolone Acetonide (Nystatin/Triamcinolone Cream 15 Gm Tube) 1 appl TOPICAL BID [facility]; Protocol Last Admin: 11/11/21 09:43 Dose: 1 appl Documented by: Trazodone HCl (Trazodone Hcl 100 Mg Tablet) 100 mg PO BEDTIME [facility] Last Admin: 11/10/21 20:23 Dose: 100 mg Documented by: Trazodone HCl (Trazodone Hcl 50 Mg Tablet) 50 mg PO BEDTIME PRN PRN Reason: Insomnia Last Admin: 11/10/21 21:27 Dose: 50 mg Documented by: Allergies Allergies Allergy/AdvReac Type Severity Reaction Status Date / Time house dust Allergy Intermediate watery eyes Verified 08/20/21 11:33 adhesive Allergy Unknown Unknown Verified 10/15/21 14:32 fenofibrate Allergy Unknown Unknown Verified 10/15/21 14:32 Sulfa (Sulfonamide Allergy Unknown unknown Verified 10/15/21 14:32 Antibiotics) tomato Allergy Unknown Unknown Verified 10/15/21 14:32 Yeast Allergy Unknown Unknown Verified 10/15/21 14:32 zolpidem [From Ambien] Allergy Unknown Unknown Verified 10/15/21 14:32 lactose AdvReac Unknown Unknown Verified 10/15/21 14:32 Assessment & Plan Assessment & Plan (1) PAF (paroxysmal atrial fibrillation): Status: Acute Code(s): I48.0 - Paroxysmal atrial fibrillation (2) Schizoaffective disorder, bipolar type: Status: Acute Code(s): F25.0 - Schizoaffective disorder, bipolar type Plan The patient has been tolerating current regimen of Clozaril and Haldol to seems more organized less reactive less irritable Case reviewed extensively with Dr. Huerta from [place] patient had initially been diagnosed with schizoaffective disorder seem to respond to ECT later seem to [place] ve developed cognitive impairment and ECT was discontinued; head CT scan shows no clear stroke; mood flat not overly manic or depressed case reviewed with son who felt he had done well with ect previously Plan 1. Get lithium level and basic metabolic panel for tomorrow. His ANC is within normal limits. 2. Continue same medications. 3. Gather collateral information. I spent ___20___ minutes with the patient and/or on the patient floor today, greater than?50% of which was spent counseling/coordinating care. Reason for contiued inpatient stay Substantial Risk for: inability to function, rapid decompensation and med/psych decompensation
[2021-11-11] MEDS: cloZAPine 100 MG TABLET 150 MG PO (20:17)
[2021-11-11] MEDS: traZODone HCL 100 MG TABLET PO (20:21)
[2021-11-11 21:15] VITALS: BP 149/89; PULSE 77; RESP 16; TEMP 37.1; O2SAT 97
[2021-11-12] MEDS: Levothyroxine Sodium 175 MCG TABLET PO (06:31)
[2021-11-12 08:35] VITALS: BP 135/62; PULSE 84; TEMP 37.2; O2SAT 95
[2021-11-12] MEDS: carvediloL 12.5 MG TABLET PO ×2 (08:59→20:30)
[2021-11-12] MEDS: cloZAPine 100 MG TABLET PO ×2 (08:59→12:26)
[2021-11-12] MEDS: lamoTRIgine 25 MG TABLET 37.5 MG PO ×2 (08:59→20:31)
[2021-11-12] MEDS: Lithium Carbonate ER 450 MG TABLET.ER PO ×2 (08:59→20:32)
[2021-11-12] MEDS: Apixaban 5 MG TABLET PO ×2 (09:00→20:30)
[2021-11-12] MEDS: Nystatin/Triamcinolone Cream 15 GM TUBE 1 APPL TOPICAL (09:00)
[2021-11-12] MEDS: Artificial Tears 15 ML DROPS 2 DROP EYE-BOTH ×2 (09:00→12:26)
[2021-11-12] MEDS: HaloperidoL 1 MG TABLET 2 MG PO ×3 (09:00→20:31)
--- NOTE | 2021-11-12 12:36 | P.PNPSI_ITS ---
Subjective Subjective Date of Service: 11/12/21 Reason For Visit: Psychosis Subjective Notes: Conditional Voluntary Interim History: The nursing staff reported that the patient had been isolative, mostly in his bed and socializing sporadically with staff and some peers. He went to the [facility] yesterday. The social director ready faxed applications for different SNF. Today, we had a phone call from her sister and I explained that he carries now the diagnosis of dementia and unfortunately, he has a higher risk of developing this condition due to his chronic mental illness and the recent psychotic breaks. On interview, the patient remains elusive with poor short-term memory and confused at times. Mental Status Exam Mental Status Exam Patient Appearance: Disheveled Patient Orientation: Person Level of Consciousness: Awake Patient Behavior: Guarded and Suspicious Mood Description: Depressed Affect Description: Constricted Patient Cognition Impaired: Yes Ability to Follow Directions: Fair Speech Pattern: Rambling Hallucinations: Auditory Delusions: Paranoid Ideation and Grandiose Thought Process: Illogical and Distracted Thought Content: positive for [place], positive for Poverty of Content and positive for Thought Blocking Judgement: Fair Diagnostics Vital Signs (24Hr): Vital Signs - 24 hr 11/11/21 21:15 11/12/21 08:35 Temperature 98.7 F 98.9 F Pulse Rate 77 84 Respiratory Rate 16 Blood Pressure 149/89 H 135/62 Pulse Oximetry 97 95 BMI result Body Mass Index 29.9 Labs Results: 11/11/21 07:17 10/21/21 06:36 Labs: Laboratory Results - last 48 hr 11/11/21 11/11/21 07:17 07:17 WBC 10.4 RBC 4.37 L Hgb 12.5 L Hct 39.5 L MCV 90.4 MCH 28.6 MCHC 31.6 RDW 13.5 Plt Count 340 MPV 9.9 Immature Gran % (Auto) 0.5 H Neut % (Auto) 72.6 Lymph % (Auto) 14.9 L Walker % (Auto) 7.8 Eos % (Auto) 3.6 Baso % (Auto) 0.6 Lymph # (Auto) 1.5 Walker # (Auto) 0.8 Eos # (Auto) 0.4 Baso # (Auto) 0.1 Abs Immat Gran (auto) 0.05 H Absolute Neuts (auto) 7.5 Absolute Nucleated RBC 0.000 Nucleated RBC % (auto) 0.0 [place] 0.78 Imaging Radiology Impressions: ITS Impressions Head CT 10/15/21 21:29 IMPRESSION: No acute intracranial pathology. Medications Medications Current Medications Acetaminophen (Acetaminophen 325 Mg Tablet) 650 mg PO Q6H PRN PRN Reason: Headache/Pain Mild Scale (1-3) Last Admin: 10/18/21 20:22 Dose: 650 mg Documented by: Al Hydroxide/Mg Hydroxide (Magnesium Hydrox/Alum Hydrox 30 Ml Oral.Susp) 30 ml PO Q6H PRN PRN Reason: Heartburn/Nausea Apixaban (Apixaban 5 Mg Tablet) 5 mg PO BID [facility] Last Admin: 11/12/21 09:00 Dose: 5 mg Documented by: Artificial Tears (Artificial Tears 15 Ml Drops) 2 drop EYE-BOTH QID [facility] Last Admin: 11/12/21 12:26 Dose: 2 drop Documented by: Carvedilol (Carvedilol 12.5 Mg Tablet) 12.5 mg PO BID [facility]; Protocol Last Admin: 11/12/21 08:59 Dose: 12.5 mg Documented by: Clozapine (Clozapine 100 Mg Tablet) 150 mg PO BEDTIME [facility] Last Admin: 11/11/21 20:17 Dose: 150 mg Documented by: Clozapine (Clozapine 100 Mg Tablet) 100 mg PO BID@0900,1300 [facility] Last Admin: 11/12/21 12:26 Dose: 100 mg Documented by: Haloperidol (Haloperidol 1 Mg Tablet) 2 mg PO TID [facility] Last Admin: 11/12/21 09:00 Dose: 2 mg Documented by: Haloperidol Lactate (Haloperidol Lactate 10 Mg/5 Ml Oral.Conc) 5 mg PO TID PRN PRN Reason: Psychosis Last Admin: 10/27/21 18:52 Dose: 5 mg Documented by: Lamotrigine (Lamotrigine 25 Mg Tablet) 37.5 mg PO BID [facility] Last Admin: 11/12/21 08:59 Dose: 37.5 mg Documented by: Levothyroxine Sodium (Levothyroxine Sodium 175 Mcg Tablet) 175 mcg PO DAILY@0600 [facility] Last Admin: 11/12/21 06:31 Dose: 175 mcg Documented by: [place] Carbonate ([place] Carbonate Er 450 Mg Tablet.Er) 450 mg PO BID [facility] Last Admin: 11/12/21 08:59 Dose: 450 mg Documented by: Magnesium Hydroxide (Milk Of Magnesia 30 Ml Oral.Susp) 30 ml PO DAILY PRN PRN Reason: Constipation Nystatin/Triamcinolone Acetonide (Nystatin/Triamcinolone Cream 15 Gm Tube) 1 appl TOPICAL BID [facility]; Protocol Last Admin: 11/12/21 09:00 Dose: 1 appl Documented by: Trazodone HCl (Trazodone Hcl 100 Mg Tablet) 100 mg PO BEDTIME [facility] Last Admin: 11/11/21 20:21 Dose: 100 mg Documented by: Trazodone HCl (Trazodone Hcl 50 Mg Tablet) 50 mg PO BEDTIME PRN PRN Reason: Insomnia Last Admin: 11/10/21 21:27 Dose: 50 mg Documented by: Allergies Allergies Allergy/AdvReac Type Severity Reaction Status Date / Time house dust Allergy Intermediate watery eyes Verified 08/20/21 11:33 adhesive Allergy Unknown Unknown Verified 10/15/21 14:32 fenofibrate Allergy Unknown Unknown Verified 10/15/21 14:32 Sulfa (Sulfonamide Allergy Unknown unknown Verified 10/15/21 14:32 Antibiotics) tomato Allergy Unknown Unknown Verified 10/15/21 14:32 Yeast Allergy Unknown Unknown Verified 10/15/21 14:32 zolpidem [From Ambien] Allergy Unknown Unknown Verified 10/15/21 14:32 lactose AdvReac Unknown Unknown Verified 10/15/21 14:32 Assessment & Plan Assessment & Plan (1) PAF (paroxysmal atrial fibrillation): Status: Acute Code(s): I48.0 - Paroxysmal atrial fibrillation (2) Schizoaffective disorder, bipolar type: Status: Acute Code(s): F25.0 - Schizoaffective disorder, bipolar type Plan The patient has been tolerating current regimen of Clozaril and Haldol to seems more organized less reactive less irritable Case reviewed extensively [place] Dr. Huerta from [place] patient had initially been diagnosed with schizoaffective disorder seem to respond to ECT later seem to have developed cognitive impairment and ECT was discontinued; head CT scan shows no clear stroke; mood flat not overly manic or depressed case reviewed with son who felt he had done well with ect previously Plan 1. Get lithium level and basic metabolic panel for tomorrow. His ANC is within normal limits. 2. Continue same medications. 3. Gather collateral information. I spent ___20___ minutes with the patient and/or on the patient floor today, greater than?50% of which was spent counseling/coordinating care. Reason for contiued inpatient stay Substantial Risk for: inability to function, rapid decompensation and med/psych decompensation
[2021-11-12 18:00] VITALS: BP 132/62; PULSE 76; RESP 18; TEMP 36.9; O2SAT 97
[2021-11-12] MEDS: traZODone HCL 100 MG TABLET PO (20:32)
[2021-11-12] MEDS: cloZAPine 100 MG TABLET 150 MG PO (20:33)
--- NOTE | 2021-11-12 22:34 | PC.NURSE ---
Pt able to get more coherent words in a row to male a proper sentence. Pt's thought process was logical for 4 different short stories he wanted to relay to staff.
[2021-11-13] MEDS: Levothyroxine Sodium 175 MCG TABLET PO (05:05)
[2021-11-13 06:00] VITALS: BP 157/77; PULSE 76; RESP 16; TEMP 36.7; O2SAT 97
[2021-11-13 07:00] VITALS: BMI 30.3
[2021-11-13] MEDS: lamoTRIgine 25 MG TABLET 37.5 MG PO ×2 (08:41→20:39)
[2021-11-13] MEDS: carvediloL 12.5 MG TABLET PO ×2 (08:42→20:35)
[2021-11-13] MEDS: cloZAPine 100 MG TABLET PO ×2 (08:42→14:32)
[2021-11-13] MEDS: HaloperidoL 1 MG TABLET 2 MG PO ×3 (08:42→20:38)
[2021-11-13] MEDS: Apixaban 5 MG TABLET PO ×2 (08:42→20:35)
[2021-11-13] MEDS: Artificial Tears 15 ML DROPS 2 DROP EYE-BOTH ×3 (08:44→15:47)
[2021-11-13] MEDS: Lithium Carbonate ER 450 MG TABLET.ER PO (11:29)
--- NOTE | 2021-11-13 11:45 | P.PNPSI_ITS ---
Subjective Subjective Date of Service: 11/13/21 Reason For Visit: Psychosis Subjective Notes: Conditional Voluntary Interim History: The nursing staff reported the patient remains appropriate, but mostly isolative in his room. He has court on his [place] today . On interview the patient denies new symptoms he remains confused. Mental Status Exam Mental Status Exam Patient Appearance: Appropriate Patient Orientation: Person Level of Consciousness: Awake Patient Behavior: Appropriate Mood Description: Withdrawn Affect Description: Constricted Patient Cognition Impaired: Yes Ability to Follow Directions: Good Speech Pattern: Clear Hallucinations: Auditory Delusions: Paranoid Ideation Thought Process: Distracted and Evasive Thought Content: positive for [place] and positive for Poverty of Content Judgement: Fair Diagnostics Vital Signs (24Hr): Vital Signs - 24 hr 11/12/21 18:00 11/13/21 06:00 Temperature 98.5 F 98.0 F Pulse Rate 76 76 Respiratory Rate 18 16 Blood Pressure 132/62 157/77 H Pulse Oximetry 97 97 BMI result Body Mass Index 29.9 Labs Results: 11/11/21 07:17 10/21/21 06:36 Imaging Radiology Impressions: ITS Impressions Head CT 10/15/21 21:29 IMPRESSION: No acute intracranial pathology. Medications Medications Current Medications Acetaminophen (Acetaminophen 325 Mg Tablet) 650 mg PO Q6H PRN PRN Reason: Headache/Pain Mild Scale (1-3) Last Admin: 10/18/21 20:22 Dose: 650 mg Documented by: Al Hydroxide/Mg Hydroxide (Magnesium Hydrox/Alum Hydrox 30 Ml Oral.Susp) 30 ml PO Q6H PRN PRN Reason: Heartburn/Nausea Apixaban (Apixaban 5 Mg Tablet) 5 mg PO BID [facility] Last Admin: 11/13/21 08:42 Dose: 5 mg Documented by: Artificial Tears (Artificial Tears 15 Ml Drops) 2 drop EYE-BOTH QID [facility] Last Admin: 11/13/21 08:44 Dose: 2 drop Documented by: Carvedilol (Carvedilol 12.5 Mg Tablet) 12.5 mg PO BID [facility]; Protocol Last Admin: 11/13/21 08:42 Dose: 12.5 mg Documented by: Clozapine (Clozapine 100 Mg Tablet) 150 mg PO BEDTIME [facility] Last Admin: 11/12/21 20:33 Dose: 150 mg Documented by: Clozapine (Clozapine 100 Mg Tablet) 100 mg PO BID@0900,1300 [facility] Last Admin: 11/13/21 08:42 Dose: 100 mg Documented by: Haloperidol (Haloperidol 1 Mg Tablet) 2 mg PO TID [facility] Last Admin: 11/13/21 08:42 Dose: 2 mg Documented by: Haloperidol Lactate (Haloperidol Lactate 10 Mg/5 Ml Oral.Conc) 5 mg PO TID PRN PRN Reason: Psychosis Last Admin: 10/27/21 18:52 Dose: 5 mg Documented by: Lamotrigine (Lamotrigine 25 Mg Tablet) 37.5 mg PO BID [facility] Last Admin: 11/13/21 08:41 Dose: 37.5 mg Documented by: Levothyroxine Sodium (Levothyroxine Sodium 175 Mcg Tablet) 175 mcg PO DAILY@0600 [facility] Last Admin: 11/13/21 05:05 Dose: 175 mcg Documented by: [place] Carbonate ([place] Carbonate Er 450 Mg Tablet.Er) 450 mg PO BID [facility] Last Admin: 11/13/21 11:29 Dose: 450 mg Documented by: Magnesium Hydroxide (Milk Of Magnesia 30 Ml Oral.Susp) 30 ml PO DAILY PRN PRN Reason: Constipation Nystatin/Triamcinolone Acetonide (Nystatin/Triamcinolone Cream 15 Gm Tube) 1 appl TOPICAL BID [facility]; Protocol Last Admin: 11/13/21 11:12 Dose: Not Given Documented by: Trazodone HCl (Trazodone Hcl 100 Mg Tablet) 100 mg PO BEDTIME [facility] Last Admin: 11/12/21 20:32 Dose: 100 mg Documented by: Trazodone HCl (Trazodone Hcl 50 Mg Tablet) 50 mg PO BEDTIME PRN PRN Reason: Insomnia Last Admin: 11/10/21 21:27 Dose: 50 mg Documented by: Allergies Allergies Allergy/AdvReac Type Severity Reaction Status Date / Time house dust Allergy Intermediate watery eyes Verified 08/20/21 11:33 adhesive Allergy Unknown Unknown Verified 10/15/21 14:32 fenofibrate Allergy Unknown Unknown Verified 10/15/21 14:32 Sulfa (Sulfonamide Allergy Unknown unknown Verified 10/15/21 14:32 Antibiotics) tomato Allergy Unknown Unknown Verified 10/15/21 14:32 Yeast Allergy Unknown Unknown Verified 10/15/21 14:32 zolpidem [From Ambien] Allergy Unknown Unknown Verified 10/15/21 14:32 lactose AdvReac Unknown Unknown Verified 10/15/21 14:32 Assessment & Plan Assessment & Plan (1) PAF (paroxysmal atrial fibrillation): Status: Acute Code(s): I48.0 - Paroxysmal atrial fibrillation (2) Schizoaffective disorder, bipolar type: Status: Acute Code(s): F25.0 - Schizoaffective disorder, bipolar type Plan The patient has been tolerating current regimen of Clozaril and Haldol to seems more organized less reactive less irritable Case reviewed extensively with Dr. Huerta from [place] patient had initially been diagnosed with schizoaffective disorder seem to respond to ECT later seem to have developed cognitive impairment and ECT was discontinued; head CT scan shows no clear stroke; mood flat not overly manic or depressed case reviewed with son who felt he had done well with ect previously Plan 1. Get lithium level and basic metabolic panel for tomorrow. His ANC is within normal limits. 2. Continue same medications. 3. Gather collateral information. I spent __20____ minutes with the patient and/or on the patient floor today, greater than?50% of which was spent counseling/coordinating care. Reason for contiued inpatient stay Substantial Risk for: inability to function, rapid decompensation and med/psych decompensation
[2021-11-13 18:00] VITALS: BP 151/78; PULSE 78; RESP 18; TEMP 36.8; O2SAT 97
[2021-11-13] MEDS: cloZAPine 100 MG TABLET 150 MG PO (20:36)
[2021-11-13] MEDS: traZODone HCL 100 MG TABLET PO (20:41)
[2021-11-14] MEDS: Levothyroxine Sodium 175 MCG TABLET PO (06:32)
[2021-11-14 08:00] VITALS: BP 112/64; PULSE 73; RESP 18; TEMP 37.1; O2SAT 96
[2021-11-14] MEDS: lamoTRIgine 25 MG TABLET 37.5 MG PO ×2 (08:42→21:11)
[2021-11-14] MEDS: Artificial Tears 15 ML DROPS 2 DROP EYE-BOTH ×3 (08:43→21:14)
[2021-11-14] MEDS: HaloperidoL 1 MG TABLET 2 MG PO ×3 (08:43→21:12)
[2021-11-14] MEDS: Apixaban 5 MG TABLET PO ×2 (08:43→21:13)
[2021-11-14] MEDS: Lithium Carbonate ER 450 MG TABLET.ER PO ×2 (08:43→21:13)
[2021-11-14] MEDS: cloZAPine 100 MG TABLET PO ×2 (08:43→13:08)
[2021-11-14] MEDS: carvediloL 12.5 MG TABLET PO ×2 (08:43→21:11)
[2021-11-14] MEDS: Nystatin/Triamcinolone Cream 15 GM TUBE 1 APPL TOPICAL ×2 (08:44→21:17)
--- NOTE | 2021-11-14 12:26 | HO.PSYCHPN ---
Subjective Subjective Date of Service: 11/14/21 Reason For Visit: Psychosis Subjective Notes: Conditional Voluntary Interim History: The nursing staff reported that the patient is more lucid than before, he was aware that is and Tony's day was yesterday and he felt that he is doing very well, he is pleasant and cooperative but isolative. The social media job titles reported that 2 [facility] facilities have declined him. On interview, the patient denies new symptoms he is pleasantly confused. Mental Status Exam Mental Status Exam Patient Appearance: Appropriate Patient Orientation: Person Level of Consciousness: Awake Patient Behavior: Suspicious Mood Description: Labile Affect Description: Constricted Patient Cognition Impaired: Yes Ability to Follow Directions: Fair Speech Pattern: Clear Memory Description: Intact Hallucinations: None Thought Process: Illogical and Distracted Thought Content: positive for [place], positive for Poverty of Content and positive for Loose Associations Judgement: Poor Diagnostics Vital Signs (24Hr): Vital Signs - 24 hr 11/13/21 18:00 11/14/21 08:00 Temperature 98.2 F 98.7 F Pulse Rate 78 73 Respiratory Rate 18 18 Blood Pressure 151/78 H 112/64 Pulse Oximetry 97 96 BMI result Body Mass Index 30.3 Labs Results: 11/11/21 07:17 10/21/21 06:36 Imaging Radiology Impressions: ITS Impressions Head CT 10/15/21 21:29 IMPRESSION: No acute intracranial pathology. Medications Medications Current Medications Acetaminophen (Acetaminophen 325 Mg Tablet) 650 mg PO Q6H PRN PRN Reason: Headache/Pain Mild Scale (1-3) Last Admin: 10/18/21 20:22 Dose: 650 mg Documented by: Al Hydroxide/Mg Hydroxide (Magnesium Hydrox/Alum Hydrox 30 Ml Oral.Susp) 30 ml PO Q6H PRN PRN Reason: Heartburn/Nausea Apixaban (Apixaban 5 Mg Tablet) 5 mg PO BID [facility] Last Admin: 11/14/21 08:43 Dose: 5 mg Documented by: Artificial Tears (Artificial Tears 15 Ml Drops) 2 drop EYE-BOTH QID [facility] Last Admin: 11/14/21 08:43 Dose: 2 drop Documented by: Carvedilol (Carvedilol 12.5 Mg Tablet) 12.5 mg PO BID [facility]; Protocol Last Admin: 11/14/21 08:43 Dose: 12.5 mg Documented by: Clozapine (Clozapine 100 Mg Tablet) 150 mg PO BEDTIME [facility] Last Admin: 11/13/21 20:36 Dose: 150 mg Documented by: Clozapine (Clozapine 100 Mg Tablet) 100 mg PO BID@0900,1300 [facility] Last Admin: 11/14/21 08:43 Dose: 100 mg Documented by: Haloperidol (Haloperidol 1 Mg Tablet) 2 mg PO TID [facility] Last Admin: 11/14/21 08:43 Dose: 2 mg Documented by: Haloperidol Lactate (Haloperidol Lactate 10 Mg/5 Ml Oral.Conc) 5 mg PO TID PRN PRN Reason: Psychosis Last Admin: 10/27/21 18:52 Dose: 5 mg Documented by: Lamotrigine (Lamotrigine 25 Mg Tablet) 37.5 mg PO BID [facility] Last Admin: 11/14/21 08:42 Dose: 37.5 mg Documented by: Levothyroxine Sodium (Levothyroxine Sodium 175 Mcg Tablet) 175 mcg PO DAILY@0600 [facility] Last Admin: 11/14/21 06:32 Dose: 175 mcg Documented by: [place] Carbonate ([place] Carbonate Er 450 Mg Tablet.Er) 450 mg PO BID [facility] Last Admin: 11/14/21 08:43 Dose: 450 mg Documented by: Magnesium Hydroxide (Milk Of Magnesia 30 Ml Oral.Susp) 30 ml PO DAILY PRN PRN Reason: Constipation Nystatin/Triamcinolone Acetonide (Nystatin/Triamcinolone Cream 15 Gm Tube) 1 appl TOPICAL BID [facility]; Protocol Last Admin: 11/14/21 08:44 Dose: 1 appl Documented by: Trazodone HCl (Trazodone Hcl 100 Mg Tablet) 100 mg PO BEDTIME [facility] Last Admin: 11/13/21 20:41 Dose: 100 mg Documented by: Trazodone HCl (Trazodone Hcl 50 Mg Tablet) 50 mg PO BEDTIME PRN PRN Reason: Insomnia Last Admin: 11/10/21 21:27 Dose: 50 mg Documented by: Allergies Allergies Allergy/AdvReac Type Severity Reaction Status Date / Time house dust Allergy Intermediate watery eyes Verified 08/20/21 11:33 adhesive Allergy Unknown Unknown Verified 10/15/21 14:32 fenofibrate Allergy Unknown Unknown Verified 10/15/21 14:32 Sulfa (Sulfonamide Allergy Unknown unknown Verified 10/15/21 14:32 Antibiotics) tomato Allergy Unknown Unknown Verified 10/15/21 14:32 Yeast Allergy Unknown Unknown Verified 10/15/21 14:32 zolpidem [From Ambien] Allergy Unknown Unknown Verified 10/15/21 14:32 lactose AdvReac Unknown Unknown Verified 10/15/21 14:32 Assessment & Plan Assessment & Plan (1) PAF (paroxysmal atrial fibrillation): Status: Acute Code(s): I48.0 - Paroxysmal atrial fibrillation (2) Schizoaffective disorder, bipolar type: Status: Acute Code(s): F25.0 - Schizoaffective disorder, bipolar type Plan The patient has been tolerating current regimen of Clozaril and Haldol to seems more organized less reactive less irritable Case reviewed extensively with Dr. Huerta from [place] patient had initially been diagnosed with schizoaffective disorder seem to respond to ECT later seem to have developed cognitive impairment and ECT was discontinued; head CT scan shows no clear stroke; mood flat not overly manic or depressed case reviewed with son who felt he had done well with ect previously Plan 1. Get lithium level and basic metabolic panel for tomorrow. His ANC is within normal limits. 2. Continue same medications. 3. Gather collateral information. I spent __20____ minutes with the patient and/or on the patient floor today, greater than?50% of which was spent counseling/coordinating care. Reason for contiued inpatient stay Substantial Risk for: inability to function, rapid decompensation and med/psych decompensation
[2021-11-14 20:28] VITALS: BP 140/70; PULSE 73; RESP 18; TEMP 36.7; O2SAT 97
[2021-11-14] MEDS: traZODone HCL 100 MG TABLET PO (21:12)
[2021-11-14] MEDS: cloZAPine 100 MG TABLET 150 MG PO (21:13)
[2021-11-15] MEDS: Levothyroxine Sodium 175 MCG TABLET PO (05:29)
[2021-11-15 08:00] VITALS: BP 138/81; PULSE 72; TEMP 36.2; O2SAT 97
[2021-11-15] MEDS: cloZAPine 100 MG TABLET PO ×2 (08:17→12:49)
[2021-11-15] MEDS: Apixaban 5 MG TABLET PO ×2 (08:18→20:40)
[2021-11-15] MEDS: Lithium Carbonate ER 450 MG TABLET.ER PO ×2 (08:18→20:40)
[2021-11-15] MEDS: carvediloL 12.5 MG TABLET PO ×2 (08:18→20:37)
[2021-11-15] MEDS: lamoTRIgine 25 MG TABLET 37.5 MG PO ×2 (08:18→20:36)
[2021-11-15] MEDS: HaloperidoL 1 MG TABLET 2 MG PO ×3 (08:18→20:38)
[2021-11-15] MEDS: Artificial Tears 15 ML DROPS 2 DROP EYE-BOTH (08:19)
[2021-11-15] MEDS: Nystatin/Triamcinolone Cream 15 GM TUBE 1 APPL TOPICAL (08:19)
--- NOTE | 2021-11-15 08:44 | P.PNPSI_ITS ---
Subjective Subjective Date of Service: 11/15/21 Reason For Visit: Psychosis Subjective Notes: Conditional Voluntary Interim History: The nursing staff reported the patient was triggered by another peer, he got angry and agitated but he was easily redirectable. He is fully compliant with medications. On interview the patient denies new symptoms he is disorganized at times. Mental Status Exam Mental Status Exam Patient Appearance: Well Grooomed Patient Orientation: Person Level of Consciousness: Awake Patient Behavior: Guarded and Suspicious Mood Description: Withdrawn Affect Description: Constricted Patient Cognition Impaired: Yes Ability to Follow Directions: Fair Speech Pattern: Clear Hallucinations: None Delusions: Paranoid Ideation Thought Process: Distracted and Evasive Thought Content: positive for [place] and positive for Poverty of Content Judgement: Fair Diagnostics Vital Signs (24Hr): Vital Signs - 24 hr 11/14/21 20:28 Temperature 98.1 F Pulse Rate 73 Respiratory Rate 18 Blood Pressure 140/70 H Pulse Oximetry 97 BMI result Body Mass Index 30.3 Labs Results: 11/11/21 07:17 10/21/21 06:36 Imaging Radiology Impressions: ITS Impressions Head CT 10/15/21 21:29 IMPRESSION: No acute intracranial pathology. Medications Medications Current Medications Acetaminophen (Acetaminophen 325 Mg Tablet) 650 mg PO Q6H PRN PRN Reason: Headache/Pain Mild Scale (1-3) Last Admin: 10/18/21 20:22 Dose: 650 mg Documented by: Al Hydroxide/Mg Hydroxide (Magnesium Hydrox/Alum Hydrox 30 Ml Oral.Susp) 30 ml PO Q6H PRN PRN Reason: Heartburn/Nausea Apixaban (Apixaban 5 Mg Tablet) 5 mg PO BID [facility] Last Admin: 11/15/21 08:18 Dose: 5 mg Documented by: Artificial Tears (Artificial Tears 15 Ml Drops) 2 drop EYE-BOTH QID [facility] Last Admin: 11/15/21 08:19 Dose: 2 drop Documented by: Carvedilol (Carvedilol 12.5 Mg Tablet) 12.5 mg PO BID [facility]; Protocol Last Admin: 11/15/21 08:18 Dose: 12.5 mg Documented by: Clozapine (Clozapine 100 Mg Tablet) 150 mg PO BEDTIME [facility] Last Admin: 11/14/21 21:13 Dose: 150 mg Documented by: Clozapine (Clozapine 100 Mg Tablet) 100 mg PO BID@0900,1300 [facility] Last Admin: 11/15/21 08:17 Dose: 100 mg Documented by: Haloperidol (Haloperidol 1 Mg Tablet) 2 mg PO TID [facility] Last Admin: 11/15/21 08:18 Dose: 2 mg Documented by: Haloperidol Lactate (Haloperidol Lactate 10 Mg/5 Ml Oral.Conc) 5 mg PO TID PRN PRN Reason: Psychosis Last Admin: 10/27/21 18:52 Dose: 5 mg Documented by: Lamotrigine (Lamotrigine 25 Mg Tablet) 37.5 mg PO BID [facility] Last Admin: 11/15/21 08:18 Dose: 37.5 mg Documented by: Levothyroxine Sodium (Levothyroxine Sodium 175 Mcg Tablet) 175 mcg PO DAILY@0600 [facility] Last Admin: 11/15/21 05:29 Dose: 175 mcg Documented by: [place] Carbonate ([place] Carbonate Er 450 Mg Tablet.Er) 450 mg PO BID [facility] Last Admin: 11/15/21 08:18 Dose: 450 mg Documented by: Magnesium Hydroxide (Milk Of Magnesia 30 Ml Oral.Susp) 30 ml PO DAILY PRN PRN Reason: Constipation Nystatin/Triamcinolone Acetonide (Nystatin/Triamcinolone Cream 15 Gm Tube) 1 appl TOPICAL BID [facility]; Protocol Last Admin: 11/15/21 08:19 Dose: 1 appl Documented by: Trazodone HCl (Trazodone Hcl 100 Mg Tablet) 100 mg PO BEDTIME [facility] Last Admin: 11/14/21 21:12 Dose: 100 mg Documented by: Trazodone HCl (Trazodone Hcl 50 Mg Tablet) 50 mg PO BEDTIME PRN PRN Reason: Insomnia Last Admin: 11/10/21 21:27 Dose: 50 mg Documented by: Allergies Allergies Allergy/AdvReac Type Severity Reaction Status Date / Time house dust Allergy Intermediate watery eyes Verified 08/20/21 11:33 adhesive Allergy Unknown Unknown Verified 10/15/21 14:32 fenofibrate Allergy Unknown Unknown Verified 10/15/21 14:32 Sulfa (Sulfonamide Allergy Unknown unknown Verified 10/15/21 14:32 Antibiotics) tomato Allergy Unknown Unknown Verified 10/15/21 14:32 Yeast Allergy Unknown Unknown Verified 10/15/21 14:32 zolpidem [From Ambien] Allergy Unknown Unknown Verified 10/15/21 14:32 lactose AdvReac Unknown Unknown Verified 10/15/21 14:32 Assessment & Plan Assessment & Plan (1) PAF (paroxysmal atrial fibrillation): Status: Acute Code(s): I48.0 - Paroxysmal atrial fibrillation (2) Schizoaffective disorder, bipolar type: Status: Acute Code(s): F25.0 - Schizoaffective disorder, bipolar type Plan The patient has been tolerating current regimen of Clozaril and Haldol to seems more organized less reactive less irritable Case [place] patient had initially been diagnosed with schizoaffective disorder seem to respond to ECT later seem to have developed cognitive impairment and ECT was discontinued; head CT scan shows no clear stroke; mood flat not overly manic or depressed case reviewed with son who felt he had done well with ect previously Plan 1. Continue same medications. 2. Gather collateral information. I spent __15____ minutes with the patient and/or on the patient floor today, greater than?50% of which was spent counseling/coordinating care. Reason for contiued inpatient stay Substantial Risk for: inability to function, rapid decompensation and med/psych decompensation
[2021-11-15 20:10] VITALS: BP 137/61; PULSE 87; RESP 20; TEMP 36.3; O2SAT 96
[2021-11-15] MEDS: cloZAPine 100 MG TABLET 150 MG PO (20:38)
[2021-11-15] MEDS: traZODone HCL 100 MG TABLET PO (20:39)
[2021-11-16] MEDS: traZODone HCL 50 MG TABLET PO (00:41)
[2021-11-16] MEDS: Levothyroxine Sodium 175 MCG TABLET PO (05:56)
[2021-11-16 08:00] VITALS: BP 129/74; PULSE 79; TEMP 36.7; O2SAT 95
[2021-11-16] MEDS: HaloperidoL 1 MG TABLET 2 MG PO ×3 (08:23→20:23)
[2021-11-16] MEDS: cloZAPine 100 MG TABLET PO ×2 (08:23→13:19)
[2021-11-16] MEDS: lamoTRIgine 25 MG TABLET 37.5 MG PO ×2 (08:23→20:22)
[2021-11-16] MEDS: Apixaban 5 MG TABLET PO ×2 (08:23→20:23)
[2021-11-16] MEDS: Lithium Carbonate ER 450 MG TABLET.ER PO ×2 (08:23→20:23)
[2021-11-16] MEDS: carvediloL 12.5 MG TABLET PO ×2 (08:23→20:23)
[2021-11-16] MEDS: Magnesium Hydrox/Alum Hydrox 30 ML ORAL.SUSP PO (08:24)
--- NOTE | 2021-11-16 09:21 | HO.PSYCHPN ---
Subjective Subjective Date of Service: 11/16/21 Reason For Visit: Psychosis Subjective Notes: Conditional Voluntary Interim History: The nursing staff reported the patient slept well last night he stated that he feels safe in the facility. He denied auditory hallucinations but he had disorganized behavior. He was incontinent of urine and he was found by the staff with 4 pairs of pants and for shares of himself. On interview, the patient remains pleasantly confused. He complained of mild headache and not feeling well. A new COVID test was ordered. Mental Status Exam Mental Status Exam Patient Appearance: Appropriate Patient Orientation: Person Level of Consciousness: Awake Patient Behavior: Guarded Mood Description: Withdrawn Affect Description: Constricted Patient Cognition Impaired: Yes Ability to Follow Directions: Good Speech Pattern: Clear Hallucinations: None Delusions: Paranoid Ideation Thought Process: Distracted and Slowed Thinking Thought Content: positive for Poverty of Content Judgement: Fair Diagnostics Vital Signs (24Hr): Vital Signs - 24 hr 11/15/21 20:10 Temperature 97.4 F Pulse Rate 87 Respiratory Rate 20 Blood Pressure 137/61 Pulse Oximetry 96 BMI result Body Mass Index 30.3 Labs Results: 11/11/21 07:17 10/21/21 06:36 Imaging Radiology Impressions: ITS Impressions Head CT 10/15/21 21:29 IMPRESSION: No acute intracranial pathology. Medications Medications Current Medications Acetaminophen (Acetaminophen 325 Mg Tablet) 650 mg PO Q6H PRN PRN Reason: Headache/Pain Mild Scale (1-3) Last Admin: 10/18/21 20:22 Dose: 650 mg Documented by: Al Hydroxide/Mg Hydroxide (Magnesium Hydrox/Alum Hydrox 30 Ml Oral.Susp) 30 ml PO Q6H PRN PRN Reason: Heartburn/Nausea Last Admin: 11/16/21 08:24 Dose: 30 ml Documented by: Apixaban (Apixaban 5 Mg Tablet) 5 mg PO BID [facility] Last Admin: 11/16/21 08:23 Dose: 5 mg Documented by: Artificial Tears (Artificial Tears 15 Ml Drops) 2 drop EYE-BOTH QID [facility] Last Admin: 11/16/21 08:29 Dose: Not Given Documented by: Carvedilol (Carvedilol 12.5 Mg Tablet) 12.5 mg PO BID [facility]; Protocol Last Admin: 11/16/21 08:23 Dose: 12.5 mg Documented by: Clozapine (Clozapine 100 Mg Tablet) 150 mg PO BEDTIME [facility] Last Admin: 11/15/21 20:38 Dose: 150 mg Documented by: Clozapine (Clozapine 100 Mg Tablet) 100 mg PO BID@0900,1300 [facility] Last Admin: 11/16/21 08:23 Dose: 100 mg Documented by: Haloperidol (Haloperidol 1 Mg Tablet) 2 mg PO TID [facility] Last Admin: 11/16/21 08:23 Dose: 2 mg Documented by: Haloperidol Lactate (Haloperidol Lactate 10 Mg/5 Ml Oral.Conc) 5 mg PO TID PRN PRN Reason: Psychosis Last Admin: 10/27/21 18:52 Dose: 5 mg Documented by: Lamotrigine (Lamotrigine 25 Mg Tablet) 37.5 mg PO BID [facility] Last Admin: 11/16/21 08:23 Dose: 37.5 mg Documented by: Levothyroxine Sodium (Levothyroxine Sodium 175 Mcg Tablet) 175 mcg PO DAILY@0600 [facility] Last Admin: 11/16/21 05:56 Dose: 175 mcg Documented by: [place] Carbonate ([place] Carbonate Er 450 Mg Tablet.Er) 450 mg PO BID [facility] Last Admin: 11/16/21 08:23 Dose: 450 mg Documented by: Magnesium Hydroxide (Milk Of Magnesia 30 Ml Oral.Susp) 30 ml PO DAILY PRN PRN Reason: Constipation Nystatin/Triamcinolone Acetonide (Nystatin/Triamcinolone Cream 15 Gm Tube) 1 appl TOPICAL BID [facility]; Protocol Last Admin: 11/16/21 08:29 Dose: Not Given Documented by: Trazodone HCl (Trazodone Hcl 100 Mg Tablet) 100 mg PO BEDTIME [facility] Last Admin: 11/15/21 20:39 Dose: 100 mg Documented by: Trazodone HCl (Trazodone Hcl 50 Mg Tablet) 50 mg PO BEDTIME PRN PRN Reason: Insomnia Last Admin: 11/16/21 00:41 Dose: 50 mg Documented by: Allergies Allergies Allergy/AdvReac Type Severity Reaction Status Date / Time house dust Allergy Intermediate watery eyes Verified 08/20/21 11:33 adhesive Allergy Unknown Unknown Verified 10/15/21 14:32 fenofibrate Allergy Unknown Unknown Verified 10/15/21 14:32 Sulfa (Sulfonamide Allergy Unknown unknown Verified 10/15/21 14:32 Antibiotics) tomato Allergy Unknown Unknown Verified 10/15/21 14:32 Yeast Allergy Unknown Unknown Verified 10/15/21 14:32 zolpidem [From Ambien] Allergy Unknown Unknown Verified 10/15/21 14:32 lactose AdvReac Unknown Unknown Verified 10/15/21 14:32 Assessment & Plan Assessment & Plan (1) PAF (paroxysmal atrial fibrillation): Status: Acute Code(s): I48.0 - Paroxysmal atrial fibrillation (2) Schizoaffective disorder, bipolar type: Status: Acute Code(s): F25.0 - Schizoaffective disorder, bipolar type Plan The patient has been tolerating current regimen of Clozaril and Haldol to seems more organized less reactive less irritable Case reviewed extensively with Dr. Huerta from [place] patient had initially been diagnosed with schizoaffective disorder seem to respond to ECT later seem to have developed cognitive impairment and ECT was discontinued; head CT scan shows no clear stroke; mood flat not overly manic or depressed case reviewed with son who felt he had done well with ect previously Plan 1. Continue same medications. 2. Gather collateral information. 3. COVID-19 test today I spent ___20___ minutes with the patient and/or on the patient floor today, greater than?50% of which was spent counseling/coordinating care. Reason for contiued inpatient stay Substantial Risk for: inability to function, rapid decompensation and med/psych decompensation
[2021-11-16 09:47] LABS: COVID-19 Test Negative (Negative); IDNOW Serial# 16C4AD1C
[2021-11-16] MEDS: Artificial Tears 15 ML DROPS 2 DROP EYE-BOTH ×2 (13:19→20:24)
[2021-11-16 20:00] VITALS: BP 130/62; PULSE 73; TEMP 36.7; O2SAT 97
[2021-11-16] MEDS: cloZAPine 100 MG TABLET 150 MG PO (20:23)
[2021-11-16] MEDS: traZODone HCL 100 MG TABLET PO (20:23)
[2021-11-16] MEDS: Nystatin/Triamcinolone Cream 15 GM TUBE 1 APPL TOPICAL (20:24)
[2021-11-17] MEDS: Levothyroxine Sodium 175 MCG TABLET PO (06:45)
--- NOTE | 2021-11-17 08:50 | HO.PSYCHPN ---
Subjective Subjective Date of Service: 11/17/21 Reason For Visit: Psychosis Subjective Notes: Conditional Voluntary Interim History: The nursing staff reported the patient has being depressed crying at times and later in thymic. He slept all night but he wore can up at least 4 times during the night. On interview the patient denies new symptoms he has nonsensical at times Mental Status Exam Mental Status Exam Patient Appearance: Appropriate Patient Orientation: Person and Situation Level of Consciousness: Awake Patient Behavior: Guarded and Suspicious Mood Description: Withdrawn Affect Description: Labile Patient Cognition Impaired: Yes Ability to Follow Directions: Good Speech Pattern: Clear Hallucinations: Auditory Delusions: Paranoid Ideation Thought Process: Linear Thought Content: positive for Poverty of Content and positive for Loose Associations Judgement: Fair Diagnostics Vital Signs (24Hr): Vital Signs - 24 hr 11/16/21 20:00 Temperature 98.1 F Pulse Rate 73 Blood Pressure 130/62 Pulse Oximetry 97 BMI result Body Mass Index 30.3 Labs Results: 11/11/21 07:17 10/21/21 06:36 Labs: Laboratory Results - last 48 hr 11/16/21 09:27 COVID-19 ([facility]) Negative COVID-19 Clin Com See Note Imaging Radiology Impressions: ITS Impressions Head CT 10/15/21 21:29 IMPRESSION: No acute intracranial pathology. Medications Medications Current Medications Acetaminophen (Acetaminophen 325 Mg Tablet) 650 mg PO Q6H PRN PRN Reason: Headache/Pain Mild Scale (1-3) Last Admin: 10/18/21 20:22 Dose: 650 mg Documented by: Al Hydroxide/Mg Hydroxide (Magnesium Hydrox/Alum Hydrox 30 Ml Oral.Susp) 30 ml PO Q6H PRN PRN Reason: Heartburn/Nausea Last Admin: 11/16/21 08:24 Dose: 30 ml Documented by: Apixaban (Apixaban 5 Mg Tablet) 5 mg PO BID [facility] Last Admin: 11/16/21 20:23 Dose: 5 mg Documented by: Artificial Tears (Artificial Tears 15 Ml Drops) 2 drop EYE-BOTH QID [facility] Last Admin: 11/16/21 20:24 Dose: 2 drop Documented by: Carvedilol (Carvedilol 12.5 Mg Tablet) 12.5 mg PO BID [facility]; Protocol Last Admin: 11/16/21 20:23 Dose: 12.5 mg Documented by: Clozapine (Clozapine 100 Mg Tablet) 150 mg PO BEDTIME [facility] Last Admin: 11/16/21 20:23 Dose: 150 mg Documented by: Clozapine (Clozapine 100 Mg Tablet) 100 mg PO BID@0900,1300 [facility] Last Admin: 11/16/21 13:19 Dose: 100 mg Documented by: Haloperidol (Haloperidol 1 Mg Tablet) 2 mg PO TID [facility] Last Admin: 11/16/21 20:23 Dose: 2 mg Documented by: Haloperidol Lactate (Haloperidol Lactate 10 Mg/5 Ml Oral.Conc) 5 mg PO TID PRN PRN Reason: Psychosis Last Admin: 10/27/21 18:52 Dose: 5 mg Documented by: Lamotrigine (Lamotrigine 25 Mg Tablet) 37.5 mg PO BID [facility] Last Admin: 11/16/21 20:22 Dose: 37.5 mg Documented by: Levothyroxine Sodium (Levothyroxine Sodium 175 Mcg Tablet) 175 mcg PO DAILY@0600 [facility] Last Admin: 11/17/21 06:45 Dose: 175 mcg Documented by: [place] Carbonate ([place] Carbonate Er 450 Mg Tablet.Er) 450 mg PO BID [facility] Last Admin: 11/16/21 20:23 Dose: 450 mg Documented by: Magnesium Hydroxide (Milk Of Magnesia 30 Ml Oral.Susp) 30 ml PO DAILY PRN PRN Reason: Constipation Nystatin/Triamcinolone Acetonide (Nystatin/Triamcinolone Cream 15 Gm Tube) 1 appl TOPICAL BID [facility]; Protocol Last Admin: 11/16/21 20:24 Dose: 1 appl Documented by: Trazodone HCl (Trazodone Hcl 100 Mg Tablet) 100 mg PO BEDTIME [facility] Last Admin: 11/16/21 20:23 Dose: 100 mg Documented by: Trazodone HCl (Trazodone Hcl 50 Mg Tablet) 50 mg PO BEDTIME PRN PRN Reason: Insomnia Last Admin: 11/16/21 00:41 Dose: 50 mg Documented by: Allergies Allergies Allergy/AdvReac Type Severity Reaction Status Date / Time house dust Allergy Intermediate watery eyes Verified 08/20/21 11:33 adhesive Allergy Unknown Unknown Verified 10/15/21 14:32 fenofibrate Allergy Unknown Unknown Verified 10/15/21 14:32 Sulfa (Sulfonamide Allergy Unknown unknown Verified 10/15/21 14:32 Antibiotics) tomato Allergy Unknown Unknown Verified 10/15/21 14:32 Yeast Allergy Unknown Unknown Verified 10/15/21 14:32 zolpidem [From Ambien] Allergy Unknown Unknown Verified 10/15/21 14:32 lactose AdvReac Unknown Unknown Verified 10/15/21 14:32 Assessment & Plan Assessment & Plan (1) PAF (paroxysmal atrial fibrillation): Status: Acute Code(s): I48.0 - Paroxysmal atrial fibrillation (2) Schizoaffective disorder, bipolar type: Status: Acute Code(s): F25.0 - Schizoaffective disorder, bipolar type Plan Middle-aged male with a long history of schizoaffective disorder bipolar type and recent worsening of his cognition in correlation with dementia. Readmitted for impulsive behavior. Plan 1. Continue Clozaril and other medications. 2. Gather collateral information. 3. Placement for SNF most likely I spent __20____ minutes with the patient and/or on the patient floor today, greater than?50% of which was spent counseling/coordinating care. Reason for contiued inpatient stay Substantial Risk for: inability to function, rapid decompensation and med/psych decompensation
[2021-11-17 08:56] VITALS: BP 115/53; PULSE 79; RESP 16; TEMP 37.1; O2SAT 95
[2021-11-17] MEDS: lamoTRIgine 25 MG TABLET 37.5 MG PO ×2 (09:14→20:17)
[2021-11-17] MEDS: cloZAPine 100 MG TABLET PO ×2 (09:15→12:13)
[2021-11-17] MEDS: Apixaban 5 MG TABLET PO ×2 (09:15→20:21)
[2021-11-17] MEDS: carvediloL 12.5 MG TABLET PO ×2 (09:15→20:21)
[2021-11-17] MEDS: HaloperidoL 1 MG TABLET 2 MG PO ×3 (09:16→20:21)
[2021-11-17] MEDS: Lithium Carbonate ER 450 MG TABLET.ER PO ×2 (09:16→20:22)
[2021-11-17] MEDS: Artificial Tears 15 ML DROPS 2 DROP EYE-BOTH ×2 (12:13→20:17)
[2021-11-17 18:00] VITALS: BP 129/68; PULSE 68; RESP 18; TEMP 37.2; O2SAT 97
[2021-11-17] MEDS: cloZAPine 100 MG TABLET 150 MG PO (20:18)
[2021-11-17] MEDS: traZODone HCL 100 MG TABLET PO (20:21)
[2021-11-17] MEDS: Nystatin/Triamcinolone Cream 15 GM TUBE 1 APPL TOPICAL (20:24)
[2021-11-18] MEDS: Levothyroxine Sodium 175 MCG TABLET PO (05:45)
[2021-11-18] MEDS: Acetaminophen 325 MG TABLET 650 MG PO ×2 (05:48→22:10)
[2021-11-18 06:00] VITALS: BP 138/67; PULSE 73; RESP 18; TEMP 37.1; O2SAT 96
--- NOTE | 2021-11-18 08:02 | HO.PSYCHPN ---
Subjective Subjective Date of Service: 11/18/21 Reason For Visit: Psychosis Subjective Notes: Conditional Voluntary Interim History: The nursing staff reported the patient has ate his meals, his pleasant cooperative and he has attended a few groups he reported visual hallucinations and he was incontinent at times but he looks less disorganized. On interview the patient denies new symptoms he is feeling okay Mental Status Exam Mental Status Exam Patient Appearance: Appropriate Patient Orientation: Person Level of Consciousness: Awake Patient Behavior: Guarded and Passive Mood Description: Withdrawn Affect Description: Labile Patient Cognition Impaired: No Ability to Follow Directions: Good Speech Pattern: Clear Hallucinations: Auditory and Visual Delusions: Paranoid Ideation Thought Process: Illogical and Distracted Thought Content: positive for [place] and positive for Poverty of Content Judgement: Fair Diagnostics Vital Signs (24Hr): Vital Signs - 24 hr 11/17/21 08:56 11/17/21 18:00 Temperature 98.7 F 98.9 F Pulse Rate 79 68 Respiratory Rate 16 18 Blood Pressure 115/53 L 129/68 Pulse Oximetry 95 97 BMI result Body Mass Index 30.3 Labs Results: 11/11/21 07:17 10/21/21 06:36 Labs: Laboratory Results - last 48 hr 11/16/21 09:27 COVID-19 ([facility]) Negative COVID-19 Clin Com See Note Imaging Radiology Impressions: ITS Impressions Head CT 10/15/21 21:29 IMPRESSION: No acute intracranial pathology. Medications Medications Current Medications Acetaminophen (Acetaminophen 325 Mg Tablet) 650 mg PO Q6H PRN PRN Reason: Headache/Pain Mild Scale (1-3) Last Admin: 11/18/21 05:48 Dose: 650 mg Documented by: Al Hydroxide/Mg Hydroxide (Magnesium Hydrox/Alum Hydrox 30 Ml Oral.Susp) 30 ml PO Q6H PRN PRN Reason: Heartburn/Nausea Last Admin: 11/16/21 08:24 Dose: 30 ml Documented by: Apixaban (Apixaban 5 Mg Tablet) 5 mg PO BID [facility] Last Admin: 11/17/21 20:21 Dose: 5 mg Documented by: Artificial Tears (Artificial Tears 15 Ml Drops) 2 drop EYE-BOTH QID [facility] Last Admin: 11/17/21 20:17 Dose: 2 drop Documented by: Carvedilol (Carvedilol 12.5 Mg Tablet) 12.5 mg PO BID [facility]; Protocol Last Admin: 11/17/21 20:21 Dose: 12.5 mg Documented by: Clozapine (Clozapine 100 Mg Tablet) 150 mg PO BEDTIME [facility] Last Admin: 11/17/21 20:18 Dose: 150 mg Documented by: Clozapine (Clozapine 100 Mg Tablet) 100 mg PO BID@0900,1300 [facility] Last Admin: 11/17/21 12:13 Dose: 100 mg Documented by: Haloperidol (Haloperidol 1 Mg Tablet) 2 mg PO TID [facility] Last Admin: 11/17/21 20:21 Dose: 2 mg Documented by: Haloperidol Lactate (Haloperidol Lactate 10 Mg/5 Ml Oral.Conc) 5 mg PO TID PRN PRN Reason: Psychosis Last Admin: 10/27/21 18:52 Dose: 5 mg Documented by: Lamotrigine (Lamotrigine 25 Mg Tablet) 37.5 mg PO BID [facility] Last Admin: 11/17/21 20:17 Dose: 37.5 mg Documented by: Levothyroxine Sodium (Levothyroxine Sodium 175 Mcg Tablet) 175 mcg PO DAILY@0600 [facility] Last Admin: 11/18/21 05:45 Dose: 175 mcg Documented by: [place] Carbonate ([place] Carbonate Er 450 Mg Tablet.Er) 450 mg PO BID [facility] Last Admin: 11/17/21 20:22 Dose: 450 mg Documented by: Magnesium Hydroxide (Milk Of Magnesia 30 Ml Oral.Susp) 30 ml PO DAILY PRN PRN Reason: Constipation Nystatin/Triamcinolone Acetonide (Nystatin/Triamcinolone Cream 15 Gm Tube) 1 appl TOPICAL BID [facility]; Protocol Last Admin: 11/17/21 20:24 Dose: 1 appl Documented by: Trazodone HCl (Trazodone Hcl 100 Mg Tablet) 100 mg PO BEDTIME [facility] Last Admin: 11/17/21 20:21 Dose: 100 mg Documented by: Trazodone HCl (Trazodone Hcl 50 Mg Tablet) 50 mg PO BEDTIME PRN PRN Reason: Insomnia Last Admin: 11/16/21 00:41 Dose: 50 mg Documented by: Allergies Allergies Allergy/AdvReac Type Severity Reaction Status Date / Time house dust Allergy Intermediate watery eyes Verified 08/20/21 11:33 adhesive Allergy Unknown Unknown Verified 10/15/21 14:32 fenofibrate Allergy Unknown Unknown Verified 10/15/21 14:32 Sulfa (Sulfonamide Allergy Unknown unknown Verified 10/15/21 14:32 Antibiotics) tomato Allergy Unknown Unknown Verified 10/15/21 14:32 Yeast Allergy Unknown Unknown Verified 10/15/21 14:32 zolpidem [From Ambien] Allergy Unknown Unknown Verified 10/15/21 14:32 lactose AdvReac Unknown Unknown Verified 10/15/21 14:32 Assessment & Plan Assessment & Plan (1) PAF (paroxysmal atrial fibrillation): Status: Acute Code(s): I48.0 - Paroxysmal atrial fibrillation (2) Schizoaffective disorder, bipolar type: Status: Acute Code(s): F25.0 - Schizoaffective disorder, bipolar type Plan Middle-aged male with a long history of schizoaffective disorder bipolar type and recent worsening of his cognition in correlation with dementia. Readmitted for impulsive behavior. Plan 1. Continue Clozaril and other medications. 2. Gather collateral information. 3. Placement for SNF most likely I spent ___20___ minutes with the patient and/or on the patient floor today, greater than?50% of which was spent counseling/coordinating care. Reason for contiued inpatient stay Substantial Risk for: inability to function, rapid decompensation and med/psych decompensation
[2021-11-18] MEDS: HaloperidoL 1 MG TABLET 2 MG PO ×2 (09:37→20:14)
[2021-11-18] MEDS: lamoTRIgine 25 MG TABLET 37.5 MG PO ×2 (09:37→20:15)
[2021-11-18] MEDS: Artificial Tears 15 ML DROPS 2 DROP EYE-BOTH ×2 (09:38→20:14)
[2021-11-18] MEDS: carvediloL 12.5 MG TABLET PO ×2 (09:38→20:14)
[2021-11-18] MEDS: Lithium Carbonate ER 450 MG TABLET.ER PO ×2 (09:38→20:17)
[2021-11-18] MEDS: Apixaban 5 MG TABLET PO ×2 (09:38→20:17)
[2021-11-18] MEDS: cloZAPine 100 MG TABLET PO (09:38)
[2021-11-18 11:25] VITALS: BP 124/77; PULSE 65; RESP 18; TEMP 36.6; O2SAT 98
--- NOTE | 2021-11-18 11:33 | ECG_ITS ---
Test Reason : CHEST PAIN Blood Pressure : / mmHG Vent. Rate : 067 BPM Atrial Rate : 067 BPM P-R Int : 224 ms QRS Dur : 164 ms QT Int : 462 ms P-R-T Axes : 040 -14 023 degrees QTc Int : 488 ms Sinus rhythm with 1st degree A-V block Right bundle branch block Abnormal ECG When compared with ECG of 27-OCT-2021 10:34, Right bundle branch block has replaced Incomplete right bundle branch block Referred By: Sharad Covington Electronically Signed By:Nile Razo
--- NOTE | 2021-11-18 11:47 | PC.NURSE ---
Pt c/o chest pain and dizziness. VS @ 1125: 124/77; R: 18; O2: 98%; P: 65; T: 97.9. The pt is not diaphoretic, skin is warm and dry. MD aware, EKG and troponin ordered. Pt ambulated to his room steadily, currently resting in bed awaiting EKG.
[2021-11-18 12:42] LABS: Neut%MD 68.7 %; Neutrophils Absolute Auto 5.7 x10*3/uL (2.0-8.3); WBCANC 8.3 X10*3/uL
[2021-11-18 13:00] LABS: Troponin-I High Sensitivity 4.7 ng/L (<3.5-35.0)
[2021-11-18 20:10] VITALS: BP 132/83; PULSE 69; RESP 16; TEMP 36.8; O2SAT 97
[2021-11-18] MEDS: Nystatin/Triamcinolone Cream 15 GM TUBE 1 APPL TOPICAL (20:14)
[2021-11-18] MEDS: cloZAPine 100 MG TABLET 150 MG PO (20:16)
[2021-11-18] MEDS: traZODone HCL 100 MG TABLET PO (20:17)
[2021-11-18] MEDS: traZODone HCL 50 MG TABLET PO (22:10)
[2021-11-19] MEDS: Levothyroxine Sodium 175 MCG TABLET PO (04:12)
[2021-11-19] MEDS: Acetaminophen 325 MG TABLET 650 MG PO (04:12)
[2021-11-19 08:00] VITALS: BP 152/71; PULSE 75; RESP 18; TEMP 36.9; O2SAT 97
--- NOTE | 2021-11-19 08:24 | P.PNPSI_ITS ---
Subjective Subjective Date of Service: 11/19/21 Reason For Visit: Psychosis Subjective Notes: Conditional Voluntary Interim History: The nursing staff reported the patient has been compliant with treatment, his pleasantly and confused, easily or redirectable. On interview the patient denies new symptoms, he mumbles sometimes, no evidence of agitation or violence. Mental Status Exam Mental Status Exam Patient Appearance: Unkempt Patient Orientation: Person and Place Level of Consciousness: Awake Patient Behavior: Guarded and Suspicious Mood Description: Calm Affect Description: Constricted Patient Cognition Impaired: Yes Ability to Follow Directions: Good Speech Pattern: Clear Hallucinations: Auditory Delusions: Paranoid Ideation Thought Process: Distracted and Evasive Thought Content: positive for [place] and positive for Poverty of Content Judgement: Fair Diagnostics Vital Signs (24Hr): Vital Signs - 24 hr 11/18/21 11:25 11/18/21 20:10 Temperature 97.9 F 98.3 F Pulse Rate 65 69 Respiratory Rate 18 16 Blood Pressure 124/77 132/83 Pulse Oximetry 98 97 BMI result Body Mass Index 30.3 Labs Results: 11/11/21 07:17 10/21/21 06:36 Labs: Laboratory Results - last 48 hr 11/18/21 11/18/21 12:27 12:27 Absolute Neuts (auto) 5.7 Troponin I High Sens 4.7 Imaging Radiology Impressions: ITS Impressions Head CT 10/15/21 21:29 IMPRESSION: No acute intracranial pathology. Medications Medications Current Medications Acetaminophen (Acetaminophen 325 Mg Tablet) 650 mg PO Q6H PRN PRN Reason: Headache/Pain Mild Scale (1-3) Last Admin: 11/19/21 04:12 Dose: 650 mg Documented by: Al Hydroxide/Mg Hydroxide (Magnesium Hydrox/Alum Hydrox 30 Ml Oral.Susp) 30 ml PO Q6H PRN PRN Reason: Heartburn/Nausea Last Admin: 11/16/21 08:24 Dose: 30 ml Documented by: Apixaban (Apixaban 5 Mg Tablet) 5 mg PO BID [facility] Last Admin: 11/18/21 20:17 Dose: 5 mg Documented by: Artificial Tears (Artificial Tears 15 Ml Drops) 2 drop EYE-BOTH QID [facility] Last Admin: 11/18/21 20:14 Dose: 2 drop Documented by: Carvedilol (Carvedilol 12.5 Mg Tablet) 12.5 mg PO BID [facility]; Protocol Last Admin: 11/18/21 20:14 Dose: 12.5 mg Documented by: Clozapine (Clozapine 100 Mg Tablet) 150 mg PO BEDTIME [facility] Last Admin: 11/18/21 20:16 Dose: 150 mg Documented by: Clozapine (Clozapine 100 Mg Tablet) 100 mg PO BID@0900,1300 [facility] Last Admin: 11/18/21 14:15 Dose: Not Given Documented by: Haloperidol (Haloperidol 1 Mg Tablet) 2 mg PO TID [facility] Last Admin: 11/18/21 20:14 Dose: 2 mg Documented by: Haloperidol Lactate (Haloperidol Lactate 10 Mg/5 Ml Oral.Conc) 5 mg PO TID PRN PRN Reason: Psychosis Last Admin: 10/27/21 18:52 Dose: 5 mg Documented by: Lamotrigine (Lamotrigine 25 Mg Tablet) 37.5 mg PO BID [facility] Last Admin: 11/18/21 20:15 Dose: 37.5 mg Documented by: Levothyroxine Sodium (Levothyroxine Sodium 175 Mcg Tablet) 175 mcg PO DAILY@0600 [facility] Last Admin: 11/19/21 04:12 Dose: 175 mcg Documented by: [place] Carbonate ([place] Carbonate Er 450 Mg Tablet.Er) 450 mg PO BID [facility] Last Admin: 11/18/21 20:17 Dose: 450 mg Documented by: Magnesium Hydroxide (Milk Of Magnesia 30 Ml Oral.Susp) 30 ml PO DAILY PRN PRN Reason: Constipation Nystatin/Triamcinolone Acetonide (Nystatin/Triamcinolone Cream 15 Gm Tube) 1 appl TOPICAL BID [facility]; Protocol Last Admin: 11/18/21 20:14 Dose: 1 appl Documented by: Trazodone HCl (Trazodone Hcl 100 Mg Tablet) 100 mg PO BEDTIME [facility] Last Admin: 11/18/21 20:17 Dose: 100 mg Documented by: Trazodone HCl (Trazodone Hcl 50 Mg Tablet) 50 mg PO BEDTIME PRN PRN Reason: Insomnia Last Admin: 11/18/21 22:10 Dose: 50 mg Documented by: Allergies Allergies Allergy/AdvReac Type Severity Reaction Status Date / Time house dust Allergy Intermediate watery eyes Verified 08/20/21 11:33 adhesive Allergy Unknown Unknown Verified 10/15/21 14:32 fenofibrate Allergy Unknown Unknown Verified 10/15/21 14:32 Sulfa (Sulfonamide Allergy Unknown unknown Verified 10/15/21 14:32 Antibiotics) tomato Allergy Unknown Unknown Verified 10/15/21 14:32 Yeast Allergy Unknown Unknown Verified 10/15/21 14:32 zolpidem [From Ambien] Allergy Unknown Unknown Verified 10/15/21 14:32 lactose AdvReac Unknown Unknown Verified 10/15/21 14:32 Assessment & Plan Assessment & Plan (1) PAF (paroxysmal atrial fibrillation): Status: Acute Code(s): I48.0 - Paroxysmal atrial fibrillation (2) Schizoaffective disorder, bipolar type: Status: Acute Code(s): F25.0 - Schizoaffective disorder, bipolar type Plan Middle-aged male with a long history of schizoaffective disorder bipolar type and recent worsening of his cognition in correlation with dementia. Readmitted for impulsive behavior. Plan 1. Continue Clozaril and other medications. 2. Gather collateral information. 3. Placement for SNF most likely I spent ___20___ minutes with the patient and/or on the patient floor today, greater than?50% of which was spent counseling/coordinating care. Reason for contiued inpatient stay Substantial Risk for: inability to function, rapid decompensation and med/psych decompensation
[2021-11-19] MEDS: cloZAPine 100 MG TABLET PO ×2 (08:35→12:40)
[2021-11-19] MEDS: Lithium Carbonate ER 450 MG TABLET.ER PO ×2 (08:35→19:47)
[2021-11-19] MEDS: HaloperidoL 1 MG TABLET 2 MG PO ×3 (08:35→19:47)
[2021-11-19] MEDS: lamoTRIgine 25 MG TABLET 37.5 MG PO ×2 (08:36→19:45)
[2021-11-19] MEDS: carvediloL 12.5 MG TABLET PO ×2 (08:36→19:45)
[2021-11-19] MEDS: Artificial Tears 15 ML DROPS 2 DROP EYE-BOTH ×3 (08:36→19:47)
[2021-11-19] MEDS: Apixaban 5 MG TABLET PO ×2 (08:36→19:45)
[2021-11-19] MEDS: Nystatin/Triamcinolone Cream 15 GM TUBE 1 APPL TOPICAL ×2 (08:36→19:43)
[2021-11-19 19:42] VITALS: BP 138/65; PULSE 76; RESP 18; TEMP 36.6; O2SAT 97
[2021-11-19] MEDS: cloZAPine 100 MG TABLET 150 MG PO (19:44)
[2021-11-19] MEDS: traZODone HCL 100 MG TABLET PO (19:45)
[2021-11-20] MEDS: traZODone HCL 50 MG TABLET PO (02:31)
[2021-11-20] MEDS: Levothyroxine Sodium 175 MCG TABLET PO (05:51)
[2021-11-20 06:00] VITALS: BP 135/71; PULSE 79; RESP 14; TEMP 37.2; O2SAT 97
[2021-11-20 07:00] VITALS: BMI 30.9
--- NOTE | 2021-11-20 08:09 | HO.PSYCHPN ---
Subjective Subjective Date of Service: 11/20/21 Reason For Visit: Psychosis Subjective Notes: Conditional Voluntary Interim History: The nursing staff reported the patient has been compliant with treatment, he denies depression. Last night he took trazodone p.r.n. at 02:30 he was incontinent of urine last night. On interview the patient denies new symptoms, he looks pleasantly and easily redirectable. The oncology social work reported that we have applied to several facilities and so far, no safe disposition. Mental Status Exam Mental Status Exam Patient Appearance: Appropriate Patient Orientation: Person and Situation Level of Consciousness: Awake Patient Behavior: Guarded and Passive Mood Description: Suspicious and Withdrawn Affect Description: Constricted Patient Cognition Impaired: Yes Ability to Follow Directions: Good Speech Pattern: Clear Hallucinations: None Delusions: Paranoid Ideation Thought Process: Distracted and Evasive Thought Content: positive for [place], positive for Circumstantial and positive for Poverty of Content Judgement: Fair Diagnostics Vital Signs (24Hr): Vital Signs - 24 hr 11/19/21 19:42 Temperature 97.9 F Pulse Rate 76 Respiratory Rate 18 Blood Pressure 138/65 Pulse Oximetry 97 BMI result Body Mass Index 30.3 Labs Results: 11/11/21 07:17 10/21/21 06:36 Labs: Laboratory Results - last 48 hr 11/18/21 11/18/21 12:27 12:27 Absolute Neuts (auto) 5.7 Troponin I High Sens 4.7 Imaging Radiology Impressions: ITS Impressions Head CT 10/15/21 21:29 IMPRESSION: No acute intracranial pathology. Medications Medications Current Medications Acetaminophen (Acetaminophen 325 Mg Tablet) 650 mg PO Q6H PRN PRN Reason: Headache/Pain Mild Scale (1-3) Last Admin: 11/19/21 04:12 Dose: 650 mg Documented by: Al Hydroxide/Mg Hydroxide (Magnesium Hydrox/Alum Hydrox 30 Ml Oral.Susp) 30 ml PO Q6H PRN PRN Reason: Heartburn/Nausea Last Admin: 11/16/21 08:24 Dose: 30 ml Documented by: Apixaban (Apixaban 5 Mg Tablet) 5 mg PO BID [facility] Last Admin: 11/19/21 19:45 Dose: 5 mg Documented by: Artificial Tears (Artificial Tears 15 Ml Drops) 2 drop EYE-BOTH QID [facility] Last Admin: 11/19/21 19:47 Dose: 2 drop Documented by: Carvedilol (Carvedilol 12.5 Mg Tablet) 12.5 mg PO BID [facility]; Protocol Last Admin: 11/19/21 19:45 Dose: 12.5 mg Documented by: Clozapine (Clozapine 100 Mg Tablet) 150 mg PO BEDTIME [facility] Last Admin: 11/19/21 19:44 Dose: 150 mg Documented by: Clozapine (Clozapine 100 Mg Tablet) 100 mg PO BID@0900,1300 [facility] Last Admin: 11/19/21 12:40 Dose: 100 mg Documented by: Haloperidol (Haloperidol 1 Mg Tablet) 2 mg PO TID [facility] Last Admin: 11/19/21 19:47 Dose: 2 mg Documented by: Haloperidol Lactate (Haloperidol Lactate 10 Mg/5 Ml Oral.Conc) 5 mg PO TID PRN PRN Reason: Psychosis Last Admin: 10/27/21 18:52 Dose: 5 mg Documented by: Lamotrigine (Lamotrigine 25 Mg Tablet) 37.5 mg PO BID [facility] Last Admin: 11/19/21 19:45 Dose: 37.5 mg Documented by: Levothyroxine Sodium (Levothyroxine Sodium 175 Mcg Tablet) 175 mcg PO DAILY@0600 [facility] Last Admin: 11/20/21 05:51 Dose: 175 mcg Documented by: [place] Carbonate ([place] Carbonate Er 450 Mg Tablet.Er) 450 mg PO BID [facility] Last Admin: 11/19/21 19:47 Dose: 450 mg Documented by: Magnesium Hydroxide (Milk Of Magnesia 30 Ml Oral.Susp) 30 ml PO DAILY PRN PRN Reason: Constipation Nystatin/Triamcinolone Acetonide (Nystatin/Triamcinolone Cream 15 Gm Tube) 1 appl TOPICAL BID [facility]; Protocol Last Admin: 11/19/21 19:43 Dose: 1 appl Documented by: Trazodone HCl (Trazodone Hcl 100 Mg Tablet) 100 mg PO BEDTIME [facility] Last Admin: 11/19/21 19:45 Dose: 100 mg Documented by: Trazodone HCl (Trazodone Hcl 50 Mg Tablet) 50 mg PO BEDTIME PRN PRN Reason: Insomnia Last Admin: 11/20/21 02:31 Dose: 50 mg Documented by: Allergies Allergies Allergy/AdvReac Type Severity Reaction Status Date / Time house dust Allergy Intermediate watery eyes Verified 08/20/21 11:33 adhesive Allergy Unknown Unknown Verified 10/15/21 14:32 fenofibrate Allergy Unknown Unknown Verified 10/15/21 14:32 Sulfa (Sulfonamide Allergy Unknown unknown Verified 10/15/21 14:32 Antibiotics) tomato Allergy Unknown Unknown Verified 10/15/21 14:32 Yeast Allergy Unknown Unknown Verified 10/15/21 14:32 zolpidem [From Ambien] Allergy Unknown Unknown Verified 10/15/21 14:32 lactose AdvReac Unknown Unknown Verified 10/15/21 14:32 Assessment & Plan Assessment & Plan (1) PAF (paroxysmal atrial fibrillation): Status: Acute Code(s): I48.0 - Paroxysmal atrial fibrillation (2) Schizoaffective disorder, bipolar type: Status: Acute Code(s): F25.0 - Schizoaffective disorder, bipolar type Plan Middle-aged male with a long history of schizoaffective disorder bipolar type and recent worsening of his cognition in correlation with dementia. Readmitted for impulsive behavior. Plan 1. Continue Clozaril and other medications. 2. Gather collateral information. 3. Placement for SNF most likely I spent ___20___ minutes with the patient and/or on the patient floor today, greater than?50% of which was spent counseling/coordinating care. Reason for contiued inpatient stay Substantial Risk for: inability to function, rapid decompensation and med/psych decompensation
[2021-11-20] MEDS: HaloperidoL 1 MG TABLET 2 MG PO ×3 (08:18→20:31)
[2021-11-20] MEDS: Lithium Carbonate ER 450 MG TABLET.ER PO ×2 (08:18→20:32)
[2021-11-20] MEDS: carvediloL 12.5 MG TABLET PO ×2 (08:19→20:28)
[2021-11-20] MEDS: cloZAPine 100 MG TABLET PO ×2 (08:19→13:58)
[2021-11-20] MEDS: Apixaban 5 MG TABLET PO ×2 (08:19→20:28)
[2021-11-20] MEDS: lamoTRIgine 25 MG TABLET 37.5 MG PO ×2 (08:19→20:32)
[2021-11-20 18:00] VITALS: BP 129/63; PULSE 83; RESP 18; TEMP 36.8; O2SAT 100
[2021-11-20] MEDS: Artificial Tears 15 ML DROPS 2 DROP EYE-BOTH (20:27)
[2021-11-20] MEDS: cloZAPine 100 MG TABLET 150 MG PO (20:28)
[2021-11-20] MEDS: Nystatin/Triamcinolone Cream 15 GM TUBE 1 APPL TOPICAL (20:32)
[2021-11-20] MEDS: traZODone HCL 100 MG TABLET PO (20:32)
[2021-11-20] MEDS: Acetaminophen 325 MG TABLET 650 MG PO (20:37)
[2021-11-21] MEDS: Levothyroxine Sodium 175 MCG TABLET PO (06:58)
[2021-11-21 08:00] VITALS: BP 141/79; PULSE 85; RESP 17; TEMP 36.5; O2SAT 95
[2021-11-21] MEDS: Nystatin/Triamcinolone Cream 15 GM TUBE 1 APPL TOPICAL (08:06)
[2021-11-21] MEDS: lamoTRIgine 25 MG TABLET 37.5 MG PO ×2 (08:06→20:27)
[2021-11-21] MEDS: Lithium Carbonate ER 450 MG TABLET.ER PO ×2 (08:07→20:27)
[2021-11-21] MEDS: Apixaban 5 MG TABLET PO ×2 (08:07→20:28)
[2021-11-21] MEDS: carvediloL 12.5 MG TABLET PO ×2 (08:07→20:27)
[2021-11-21] MEDS: cloZAPine 100 MG TABLET PO ×2 (08:07→12:53)
[2021-11-21] MEDS: HaloperidoL 1 MG TABLET 2 MG PO ×3 (08:07→20:27)
--- NOTE | 2021-11-21 12:45 | P.PNPSI_ITS ---
Subjective Subjective Date of Service: 11/21/21 Reason For Visit: Psychosis Subjective Notes: Conditional Voluntary Interim History: The nursing staff reported the patient has been compliant with treatment. The staff has noticed that he looks a little depressed but safe, he has attended to groups and he is pleasant and cooperative. On interview the patient denies new symptoms. Mental Status Exam Mental Status Exam Patient Appearance: Well Grooomed Patient Orientation: Person Level of Consciousness: Awake Patient Behavior: Cooperative Mood Description: Withdrawn Affect Description: Constricted Patient Cognition Impaired: Yes Ability to Follow Directions: Good Speech Pattern: Impoverished and Appropriate Hallucinations: None Delusions: Not Present Thought Process: Distracted and Evasive Thought Content: positive for Poverty of Content Judgement: Fair Diagnostics Vital Signs (24Hr): Vital Signs - 24 hr 11/20/21 18:00 11/21/21 08:00 Temperature 98.3 F 97.7 F Pulse Rate 83 85 Respiratory Rate 18 17 Blood Pressure 129/63 141/79 H Pulse Oximetry 100 95 BMI result Body Mass Index 30.9 Labs Results: 11/11/21 07:17 10/21/21 06:36 Imaging Radiology Impressions: ITS Impressions Head CT 10/15/21 21:29 IMPRESSION: No acute intracranial pathology. Medications Medications Current Medications Acetaminophen (Acetaminophen 325 Mg Tablet) 650 mg PO Q6H PRN PRN Reason: Headache/Pain Mild Scale (1-3) Last Admin: 11/20/21 20:37 Dose: 650 mg Documented by: Al Hydroxide/Mg Hydroxide (Magnesium Hydrox/Alum Hydrox 30 Ml Oral.Susp) 30 ml PO Q6H PRN PRN Reason: Heartburn/Nausea Last Admin: 11/16/21 08:24 Dose: 30 ml Documented by: Apixaban (Apixaban 5 Mg Tablet) 5 mg PO BID [facility] Last Admin: 11/21/21 08:07 Dose: 5 mg Documented by: Artificial Tears (Artificial Tears 15 Ml Drops) 2 drop EYE-BOTH QID [facility] Last Admin: 11/21/21 10:10 Dose: Not Given Documented by: Carvedilol (Carvedilol 12.5 Mg Tablet) 12.5 mg PO BID [facility]; Protocol Last Admin: 11/21/21 08:07 Dose: 12.5 mg Documented by: Clozapine (Clozapine 100 Mg Tablet) 150 mg PO BEDTIME [facility] Last Admin: 03/24/22 20:28 Dose: 150 mg Documented by: Clozapine (Clozapine 100 Mg Tablet) 100 mg PO BID@0900,1300 [facility] Last Admin: 11/21/21 08:07 Dose: 100 mg Documented by: Haloperidol (Haloperidol 1 Mg Tablet) 2 mg PO TID [facility] Last Admin: 11/21/21 08:07 Dose: 2 mg Documented by: Haloperidol Lactate (Haloperidol Lactate 10 Mg/5 Ml Oral.Conc) 5 mg PO TID PRN PRN Reason: Psychosis Last Admin: 10/27/21 18:52 Dose: 5 mg Documented by: Lamotrigine (Lamotrigine 25 Mg Tablet) 37.5 mg PO BID [facility] Last Admin: 11/21/21 08:06 Dose: 37.5 mg Documented by: Levothyroxine Sodium (Levothyroxine Sodium 175 Mcg Tablet) 175 mcg PO DAILY@0600 [facility] Last Admin: 11/21/21 06:58 Dose: 175 mcg Documented by: [place] Carbonate ([place] Carbonate Er 450 Mg Tablet.Er) 450 mg PO BID [facility] Last Admin: 11/21/21 08:07 Dose: 450 mg Documented by: Magnesium Hydroxide (Milk Of Magnesia 30 Ml Oral.Susp) 30 ml PO DAILY PRN PRN Reason: Constipation Nystatin/Triamcinolone Acetonide (Nystatin/Triamcinolone Cream 15 Gm Tube) 1 appl TOPICAL BID [facility]; Protocol Last Admin: 11/21/21 08:06 Dose: 1 appl Documented by: Trazodone HCl (Trazodone Hcl 100 Mg Tablet) 100 mg PO BEDTIME [facility] Last Admin: 11/20/21 20:32 Dose: 100 mg Documented by: Trazodone HCl (Trazodone Hcl 50 Mg Tablet) 50 mg PO BEDTIME PRN PRN Reason: Insomnia Last Admin: 11/20/21 02:31 Dose: 50 mg Documented by: Allergies Allergies Allergy/AdvReac Type Severity Reaction Status Date / Time house dust Allergy Intermediate watery eyes Verified 08/20/21 11:33 adhesive Allergy Unknown Unknown Verified 10/15/21 14:32 fenofibrate Allergy Unknown Unknown Verified 10/15/21 14:32 Sulfa (Sulfonamide Allergy Unknown unknown Verified 10/15/21 14:32 Antibiotics) tomato Allergy Unknown Unknown Verified 10/15/21 14:32 Yeast Allergy Unknown Unknown Verified 10/15/21 14:32 zolpidem [From Ambien] Allergy Unknown Unknown Verified 10/15/21 14:32 lactose AdvReac Unknown Unknown Verified 10/15/21 14:32 Assessment & Plan Assessment & Plan (1) PAF (paroxysmal atrial fibrillation): Status: Acute Code(s): I48.0 - Paroxysmal atrial fibrillation (2) Schizoaffective disorder, bipolar type: Status: Acute Code(s): F25.0 - Schizoaffective disorder, bipolar type Plan Middle-aged male with a long history of schizoaffective disorder bipolar type and recent worsening of his cognition in correlation with dementia. Readmitted for impulsive behavior. Plan 1. Continue Clozaril and other medications. 2. Gather collateral information. 3. Placement for SNF most likely I spent ___20___ minutes with the patient and/or on the patient floor today, greater than?50% of which was spent counseling/coordinating care. Reason for contiued inpatient stay Substantial Risk for: inability to function, rapid decompensation and med/psych decompensation
[2021-11-21 18:00] VITALS: BP 177/79; PULSE 73; RESP 18; TEMP 36.2; O2SAT 98
[2021-11-21] MEDS: traZODone HCL 100 MG TABLET PO (20:28)
[2021-11-21] MEDS: cloZAPine 100 MG TABLET 150 MG PO (20:28)
[2021-11-22] MEDS: Levothyroxine Sodium 175 MCG TABLET PO (05:26)
[2021-11-22] MEDS: Apixaban 5 MG TABLET PO ×2 (08:22→19:48)
[2021-11-22] MEDS: lamoTRIgine 25 MG TABLET 37.5 MG PO ×2 (08:22→19:46)
[2021-11-22] MEDS: cloZAPine 100 MG TABLET PO ×2 (08:23→12:44)
[2021-11-22] MEDS: HaloperidoL 1 MG TABLET 2 MG PO ×3 (08:23→19:49)
[2021-11-22] MEDS: carvediloL 12.5 MG TABLET PO ×2 (08:23→19:49)
[2021-11-22] MEDS: Lithium Carbonate ER 450 MG TABLET.ER PO ×2 (08:23→19:49)
[2021-11-22 08:30] VITALS: BP 159/90; PULSE 87; RESP 18; TEMP 36.9; O2SAT 94
[2021-11-22] MEDS: Artificial Tears 15 ML DROPS 2 DROP EYE-BOTH ×2 (12:44→19:52)
--- NOTE | 2021-11-22 16:57 | P.PNPSI_ITS ---
Subjective Subjective Date of Service: 11/22/21 Reason For Visit: Psychosis Subjective Notes: Conditional Voluntary Healthcare Proxy: Yes Medical Problems Affecting Mental Status: No Interim History: Met with patient and reviewed with nursing. Awaiting placement. Patient reports feeling okay. This pressured in speech and very tangential. Denies side effects from Clozaril and lithium. Reports the lithium keeps his mood steady and is unsure why he takes clozapine. Reports feeling well cared for here. 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 Reports sleep has been broken at times. Denies feeling depressed. No overt psychosis noted Medication Compliance: Yes Side effects from medications: No Attending Groups: Intermittent Review of Systems Acute medical concerns: No Review of Systems Review of Systems unremarkable Mental Status Exam Mental Status Exam Narrative: pleasant. Engaged. Casually dressed. Hygiene okay. Speech Slightly pressured at times and difficult to make out as tangential. Largely euthymic. No SI. No HI. No agitation noted and no overt psychosis. Diagnostics Vital Signs (24Hr): Vital Signs - 24 hr 11/21/21 18:00 11/22/21 08:30 Temperature 97.2 F 98.4 F Pulse Rate 73 87 Respiratory Rate 18 18 Blood Pressure 177/79 H 159/90 H Pulse Oximetry 98 94 BMI result Body Mass Index 30.9 Labs Results: 11/11/21 07:17 10/21/21 06:36 Imaging Radiology Impressions: ITS Impressions Head CT 10/15/21 21:29 IMPRESSION: No acute intracranial pathology. Medications Medications Current Medications Acetaminophen (Acetaminophen 325 Mg Tablet) 650 mg PO Q6H PRN PRN Reason: Headache/Pain Mild Scale (1-3) Last Admin: 11/20/21 20:37 Dose: 650 mg Documented by: Al Hydroxide/Mg Hydroxide (Magnesium Hydrox/Alum Hydrox 30 Ml Oral.Susp) 30 ml PO Q6H PRN PRN Reason: Heartburn/Nausea Last Admin: 11/16/21 08:24 Dose: 30 ml Documented by: Apixaban (Apixaban 5 Mg Tablet) 5 mg PO BID [facility] Last Admin: 11/22/21 08:22 Dose: 5 mg Documented by: Artificial Tears (Artificial Tears 15 Ml Drops) 2 drop EYE-BOTH QID [facility] Last Admin: 11/22/21 12:44 Dose: 2 drop Documented by: Carvedilol (Carvedilol 12.5 Mg Tablet) 12.5 mg PO BID [facility]; Protocol Last Admin: 11/22/21 08:23 Dose: 12.5 mg Documented by: Clozapine (Clozapine 100 Mg Tablet) 150 mg PO BEDTIME [facility] Last Admin: 11/21/21 20:28 Dose: 150 mg Documented by: Clozapine (Clozapine 100 Mg Tablet) 100 mg PO BID@0900,1300 [facility] Last Admin: 11/22/21 12:44 Dose: 100 mg Documented by: Haloperidol (Haloperidol 1 Mg Tablet) 2 mg PO TID [facility] Last Admin: 11/22/21 14:55 Dose: 2 mg Documented by: Haloperidol Lactate (Haloperidol Lactate 10 Mg/5 Ml Oral.Conc) 5 mg PO TID PRN PRN Reason: Psychosis Last Admin: 10/27/21 18:52 Dose: 5 mg Documented by: Lamotrigine (Lamotrigine 25 Mg Tablet) 37.5 mg PO BID [facility] Last Admin: 11/22/21 08:22 Dose: 37.5 mg Documented by: Levothyroxine Sodium (Levothyroxine Sodium 175 Mcg Tablet) 175 mcg PO DAILY@0600 [facility] Last Admin: 11/22/21 05:26 Dose: 175 mcg Documented by: [place] Carbonate ([place] Carbonate Er 450 Mg Tablet.Er) 450 mg PO BID [facility] Last Admin: 11/22/21 08:23 Dose: 450 mg Documented by: Magnesium Hydroxide (Milk Of Magnesia 30 Ml Oral.Susp) 30 ml PO DAILY PRN PRN Reason: Constipation Nystatin/Triamcinolone Acetonide (Nystatin/Triamcinolone Cream 15 Gm Tube) 1 appl TOPICAL BID [facility]; Protocol Last Admin: 11/22/21 11:33 Dose: Not Given Documented by: Trazodone HCl (Trazodone Hcl 100 Mg Tablet) 100 mg PO BEDTIME [facility] Last Admin: 11/21/21 20:28 Dose: 100 mg Documented by: Trazodone HCl (Trazodone Hcl 50 Mg Tablet) 50 mg PO BEDTIME PRN PRN Reason: Insomnia Last Admin: 11/20/21 02:31 Dose: 50 mg Documented by: Allergies Allergies Allergy/AdvReac Type Severity Reaction Status Date / Time house dust Allergy Intermediate watery eyes Verified 08/20/21 11:33 adhesive Allergy Unknown Unknown Verified 10/15/21 14:32 fenofibrate Allergy Unknown Unknown Verified 10/15/21 14:32 Sulfa (Sulfonamide Allergy Unknown unknown Verified 10/15/21 14:32 Antibiotics) tomato Allergy Unknown Unknown Verified 10/15/21 14:32 Yeast Allergy Unknown Unknown Verified 10/15/21 14:32 zolpidem [From Ambien] Allergy Unknown Unknown Verified 10/15/21 14:32 lactose AdvReac Unknown Unknown Verified 10/15/21 14:32 Assessment & Plan Assessment & Plan (1) PAF (paroxysmal atrial fibrillation): Status: Acute Code(s): I48.0 - Paroxysmal atrial fibrillation (2) Schizoaffective disorder, bipolar type: Status: Acute Code(s): F25.0 - Schizoaffective disorder, bipolar type Plan Middle-aged male with a long history of schizoaffective disorder bipolar type and recent worsening of his cognition in correlation with dementia. Readmitted for impulsive behavior. Plan 1. Continue Clozaril and other medications. 2. Gather collateral information. 3. Placement for SNF most likely 11/22/2021: No changes to team's primary treatment plan I spent minutes with the patient and/or on the patient floor today, greater than?50% of which was spent counseling/coordinating care. Reason for contiued inpatient stay Substantial Risk for: inability to function
[2021-11-22 18:00] VITALS: BP 126/70; PULSE 77; RESP 18; TEMP 37.2; O2SAT 96
[2021-11-22] MEDS: cloZAPine 100 MG TABLET 150 MG PO (19:45)
[2021-11-22] MEDS: traZODone HCL 100 MG TABLET PO (19:54)
[2021-11-23] MEDS: Levothyroxine Sodium 175 MCG TABLET PO (05:49)
[2021-11-23 06:00] VITALS: BP 130/76; PULSE 79; RESP 16; TEMP 37; O2SAT 96
[2021-11-23] MEDS: Artificial Tears 15 ML DROPS 2 DROP EYE-BOTH ×4 (09:05→20:57)
[2021-11-23] MEDS: Lithium Carbonate ER 450 MG TABLET.ER PO ×2 (09:06→20:54)
[2021-11-23] MEDS: Nystatin/Triamcinolone Cream 15 GM TUBE 1 APPL TOPICAL ×2 (09:06→20:57)
[2021-11-23] MEDS: Apixaban 5 MG TABLET PO ×2 (09:07→20:50)
[2021-11-23] MEDS: lamoTRIgine 25 MG TABLET 37.5 MG PO ×2 (09:07→20:51)
[2021-11-23] MEDS: cloZAPine 100 MG TABLET PO ×2 (09:07→12:49)
[2021-11-23] MEDS: carvediloL 12.5 MG TABLET PO ×2 (09:08→20:51)
[2021-11-23] MEDS: HaloperidoL 1 MG TABLET 2 MG PO ×3 (09:08→20:53)
--- NOTE | 2021-11-23 14:34 | P.PNPSI_ITS ---
Subjective Subjective Date of Service: 11/23/21 Reason For Visit: Psychosis Subjective Notes: Conditional Voluntary Healthcare Proxy: Yes Interim History: Met with patient and reviewed with nursing. Awaiting placement. Patient reports feeling okay. SLightly less pressured speech. Remains tangential. Reports feeling well cared for here, but also states things have been stolen. He eager to meet with his director of social media marketing. Reports sleep has been broken at times. Denies feeling depressed. Denies side effects from Clozaril and lithiu m. Medication Compliance: Yes Side effects from medications: No Attending Groups: Intermittent Review of Systems Acute medical concerns: No Review of Systems Review of Systems unremarkable Mental Status Exam Mental Status Exam Narrative: pleasant. Engaged. Casually dressed. Hygiene okay. Speech Slightly pressured at times and difficult to make out as tangential. Largely euthymic. No SI. No HI. No agitation noted and no overt psychosis. Diagnostics Vital Signs (24Hr): Vital Signs - 24 hr 11/22/21 18:00 11/23/21 06:00 Temperature 98.9 F 98.6 F Pulse Rate 77 79 Respiratory Rate 18 16 Blood Pressure 126/70 130/76 Pulse Oximetry 96 96 BMI result Body Mass Index 30.9 Labs Results: 11/11/21 07:17 10/21/21 06:36 Imaging Radiology Impressions: ITS Impressions Head CT 10/15/21 21:29 IMPRESSION: No acute intracranial pathology. Medications Medications Current Medications Acetaminophen (Acetaminophen 325 Mg Tablet) 650 mg PO Q6H PRN PRN Reason: Headache/Pain Mild Scale (1-3) Last Admin: 11/20/21 20:37 Dose: 650 mg Documented by: Al Hydroxide/Mg Hydroxide (Magnesium Hydrox/Alum Hydrox 30 Ml Oral.Susp) 30 ml PO Q6H PRN PRN Reason: Heartburn/Nausea Last Admin: 11/16/21 08:24 Dose: 30 ml Documented by: Apixaban (Apixaban 5 Mg Tablet) 5 mg PO BID [facility] Last Admin: 11/23/21 09:07 Dose: 5 mg Documented by: Artificial Tears (Artificial Tears 15 Ml Drops) 2 drop EYE-BOTH QID [facility] Last Admin: 11/23/21 12:52 Dose: Not Given Documented by: Carvedilol (Carvedilol 12.5 Mg Tablet) 12.5 mg PO BID [facility]; Protocol Last Admin: 11/23/21 09:08 Dose: 12.5 mg Documented by: Clozapine (Clozapine 100 Mg Tablet) 150 mg PO BEDTIME [facility] Last Admin: 11/22/21 19:45 Dose: 150 mg Documented by: Clozapine (Clozapine 100 Mg Tablet) 100 mg PO BID@0900,1300 [facility] Last Admin: 11/23/21 12:49 Dose: 100 mg Documented by: Haloperidol (Haloperidol 1 Mg Tablet) 2 mg PO TID [facility] Last Admin: 11/23/21 09:08 Dose: 2 mg Documented by: Haloperidol Lactate (Haloperidol Lactate 10 Mg/5 Ml Oral.Conc) 5 mg PO TID PRN PRN Reason: Psychosis Last Admin: 10/27/21 18:52 Dose: 5 mg Documented by: Lamotrigine (Lamotrigine 25 Mg Tablet) 37.5 mg PO BID [facility] Last Admin: 11/23/21 09:07 Dose: 37.5 mg Documented by: Levothyroxine Sodium (Levothyroxine Sodium 175 Mcg Tablet) 175 mcg PO DAILY@0600 [facility] Last Admin: 11/23/21 05:49 Dose: 175 mcg Documented by: [place] Carbonate ([place] Carbonate Er 450 Mg Tablet.Er) 450 mg PO BID [facility] Last Admin: 11/23/21 09:06 Dose: 450 mg Documented by: Magnesium Hydroxide (Milk Of Magnesia 30 Ml Oral.Susp) 30 ml PO DAILY PRN PRN Reason: Constipation Nystatin/Triamcinolone Acetonide (Nystatin/Triamcinolone Cream 15 Gm Tube) 1 appl TOPICAL BID [facility]; Protocol Last Admin: 11/23/21 09:06 Dose: 1 appl Documented by: Trazodone HCl (Trazodone Hcl 100 Mg Tablet) 100 mg PO BEDTIME [facility] Last Admin: 11/22/21 19:54 Dose: 100 mg Documented by: Trazodone HCl (Trazodone Hcl 50 Mg Tablet) 50 mg PO BEDTIME PRN PRN Reason: Insomnia Last Admin: 11/20/21 02:31 Dose: 50 mg Documented by: Allergies Allergies Allergy/AdvReac Type Severity Reaction Status Date / Time house dust Allergy Intermediate watery eyes Verified 08/20/21 11:33 adhesive Allergy Unknown Unknown Verified 10/15/21 14:32 fenofibrate Allergy Unknown Unknown Verified 10/15/21 14:32 Sulfa (Sulfonamide Allergy Unknown unknown Verified 02/16/22 14:32 Antibiotics) tomato Allergy Unknown Unknown Verified 10/15/21 14:32 Yeast Allergy Unknown Unknown Verified 10/15/21 14:32 zolpidem [From Ambien] Allergy Unknown Unknown Verified 10/15/21 14:32 lactose AdvReac Unknown Unknown Verified 10/15/21 14:32 Assessment & Plan Assessment & Plan (1) PAF (paroxysmal atrial fibrillation): Status: Acute Code(s): I48.0 - Paroxysmal atrial fibrillation (2) Schizoaffective disorder, bipolar type: Status: Acute Code(s): F25.0 - Schizoaffective disorder, bipolar type Plan Middle-aged male with a long history of schizoaffective disorder bipol ar type and recent worsening of his cognition in correlation with dementia. Readmitted for impulsive behavior. Plan 1. Continue Clozaril and other medications. 2. Gather collateral information. 3. Placement for SNF most likely 11/23/2021: No changes to team's primary treatment plan I spent minutes with the patient and/or on the patient floor today, greater than?50% of which was spent counseling/coordinating care. Reason for contiued inpatient stay Substantial Risk for: inability to function
[2021-11-23 18:00] VITALS: BP 138/79; PULSE 80; RESP 16; TEMP 37.1; O2SAT 97
[2021-11-23] MEDS: traZODone HCL 100 MG TABLET PO (20:53)
[2021-11-23] MEDS: cloZAPine 100 MG TABLET 150 MG PO (20:54)
[2021-11-24 06:00] VITALS: BP 125/80; PULSE 76; RESP 14; TEMP 37; O2SAT 96
[2021-11-24] MEDS: Levothyroxine Sodium 175 MCG TABLET PO (06:26)
[2021-11-24] MEDS: carvediloL 12.5 MG TABLET PO ×2 (08:00→20:34)
[2021-11-24] MEDS: cloZAPine 100 MG TABLET PO ×2 (08:00→14:07)
[2021-11-24] MEDS: Apixaban 5 MG TABLET PO ×2 (08:00→20:34)
[2021-11-24] MEDS: lamoTRIgine 25 MG TABLET 37.5 MG PO ×2 (08:00→20:34)
[2021-11-24] MEDS: Lithium Carbonate ER 450 MG TABLET.ER PO ×2 (08:00→20:35)
[2021-11-24] MEDS: HaloperidoL 1 MG TABLET 2 MG PO ×3 (08:00→20:34)
--- NOTE | 2021-11-24 13:40 | HO.PSYCHPN ---
Subjective Subjective Date of Service: 11/24/21 Reason For Visit: Psychosis Subjective Notes: Conditional Voluntary Interim History: The nursing staff reported the patient has attended to groups, he is pleasant and cooperative, eating 100% of his meals. The social work professor reported that the patient looks less disorganized and so far, he was been referred for 4 or 5 facilities. On interview the patient denies new symptoms he is pleasant, waiting for placement. Mental Status Exam Mental Status Exam Patient Appearance: Well Grooomed Patient Orientation: Person Level of Consciousness: Awake Patient Behavior: Appropriate, Guarded and Passive Mood Description: Calm Affect Description: Constricted Patient Cognition Impaired: Yes Ability to Follow Directions: Good Speech Pattern: Clear Memory Description: Intact Hallucinations: None Delusions: Paranoid Ideation Thought Process: Distracted and Linear Thought Content: positive for Circumstantial Judgement: Fair Diagnostics Vital Signs (24Hr): Vital Signs - 24 hr 11/23/21 18:00 11/24/21 06:00 Temperature 98.7 F 98.6 F Pulse Rate 80 76 Respiratory Rate 16 14 Blood Pressure 138/79 125/80 Pulse Oximetry 97 96 BMI result Body Mass Index 30.9 Labs Results: 11/11/21 07:17 10/21/21 06:36 Imaging Radiology Impressions: ITS Impressions Head CT 10/15/21 21:29 IMPRESSION: No acute intracranial pathology. Medications Medications Current Medications Acetaminophen (Acetaminophen 325 Mg Tablet) 650 mg PO Q6H PRN PRN Reason: Headache/Pain Mild Scale (1-3) Last Admin: 11/20/21 20:37 Dose: 650 mg Documented by: Al Hydroxide/Mg Hydroxide (Magnesium Hydrox/Alum Hydrox 30 Ml Oral.Susp) 30 ml PO Q6H PRN PRN Reason: Heartburn/Nausea Last Admin: 11/16/21 08:24 Dose: 30 ml Documented by: Apixaban (Apixaban 5 Mg Tablet) 5 mg PO BID [facility] Last Admin: 11/24/21 08:00 Dose: 5 mg Documented by: Artificial Tears (Artificial Tears 15 Ml Drops) 2 drop EYE-BOTH QID [facility] Last Admin: 11/24/21 08:14 Dose: Not Given Documented by: Carvedilol (Carvedilol 12.5 Mg Tablet) 12.5 mg PO BID [facility]; Protocol Last Admin: 11/24/21 08:00 Dose: 12.5 mg Documented by: Clozapine (Clozapine 100 Mg Tablet) 150 mg PO BEDTIME [facility] Last Admin: 11/23/21 20:54 Dose: 150 mg Documented by: Clozapine (Clozapine 100 Mg Tablet) 100 mg PO BID@0900,1300 [facility] Last Admin: 11/24/21 08:00 Dose: 100 mg Documented by: Haloperidol (Haloperidol 1 Mg Tablet) 2 mg PO TID [facility] Last Admin: 11/24/21 08:00 Dose: 2 mg Documented by: Haloperidol Lactate (Haloperidol Lactate 10 Mg/5 Ml Oral.Conc) 5 mg PO TID PRN PRN Reason: Psychosis Last Admin: 10/27/21 18:52 Dose: 5 mg Documented by: Lamotrigine (Lamotrigine 25 Mg Tablet) 37.5 mg PO BID [facility] Last Admin: 11/24/21 08:00 Dose: 37.5 mg Documented by: Levothyroxine Sodium (Levothyroxine Sodium 175 Mcg Tablet) 175 mcg PO DAILY@0600 [facility] Last Admin: 11/24/21 06:26 Dose: 175 mcg Documented by: [place] Carbonate ([place] Carbonate Er 450 Mg Tablet.Er) 450 mg PO BID [facility] Last Admin: 11/24/21 08:00 Dose: 450 mg Documented by: Magnesium Hydroxide (Milk Of Magnesia 30 Ml Oral.Susp) 30 ml PO DAILY PRN PRN Reason: Constipation Nystatin/Triamcinolone Acetonide (Nystatin/Triamcinolone Cream 15 Gm Tube) 1 appl TOPICAL BID [facility]; Protocol Last Admin: 11/24/21 08:14 Dose: Not Given Documented by: Trazodone HCl (Trazodone Hcl 100 Mg Tablet) 100 mg PO BEDTIME [facility] Last Admin: 11/23/21 20:53 Dose: 100 mg Documented by: Trazodone HCl (Trazodone Hcl 50 Mg Tablet) 50 mg PO BEDTIME PRN PRN Reason: Insomnia Last Admin: 11/20/21 02:31 Dose: 50 mg Documented by: Allergies Allergies Allergy/AdvReac Type Severity Reaction Status Date / Time house dust Allergy Intermediate watery eyes Verified 08/20/21 11:33 adhesive Allergy Unknown Unknown Verified 10/15/21 14:32 fenofibrate Allergy Unknown Unknown Verified 10/15/21 14:32 Sulfa (Sulfonamide Allergy Unknown unknown Verified 10/15/21 14:32 Antibiotics) tomato Allergy Unknown Unknown Verified 10/15/21 14:32 Yeast Allergy Unknown Unknown Verified 10/15/21 14:32 zolpidem [From Ambien] Allergy Unknown Unknown Verified 10/15/21 14:32 lactose AdvReac Unknown Unknown Verified 10/15/21 14:32 Assessment & Plan Assessment & Plan (1) PAF (paroxysmal atrial fibrillation): Status: Acute Code(s): I48.0 - Paroxysmal atrial fibrillation (2) Schizoaffective disorder, bipolar type: Status: Acute Code(s): F25.0 - Schizoaffective disorder, bipolar type Plan Middle-aged male with a long history of schizoaffective disorder bipolar type and recent worsening of his cognition in correlation with dementia. Readmitted for impulsive behavior. Plan 1. Continue Clozaril and other medications. 2. Gather collateral information. 3. Placement for SNF most likely. I spent __20____ minutes with the patient and/or on the patient floor today, greater than?50% of which was spent counseling/coordinating care. Patient educated on: therapeutic strategies Informed Consent: further education needed Reason for contiued inpatient stay Substantial Risk for: inability to function, rapid decompensation and med/psych decompensation
[2021-11-24] MEDS: Artificial Tears 15 ML DROPS 2 DROP EYE-BOTH ×3 (14:08→20:36)
--- NOTE | 2021-11-24 16:45 | MHC.SL.SWA ---
Speech Pathologist Impression: Risk of Aspiration Due to: None Dysphasia Diet Status: Liquid Consistency and Strategies for Safe Swallow: Liquid Intake Recommendation: Thin Liquid Intake Strategies: Small Sips Solid Food Consistency: Dietary Recommendations: Regular Additional Modifications to Solid Foods: Alternate liquid and solids when eating. Pt may need reminders to take small bites and sips due to impulsivity. Oral Medication Intake: Whole with Liquid Please contact the pharmacy regarding appropriate crushable or liquid drug formulations that are available whenever modified delivery is recommended. Compensatory Strategies and Precautions to be Taken for Safe Swallow: Sitting Upright (90 deg) Liquids from Cup Alternate Liquids/Solids Rate of Ingestion Change Supervision While Eating and Drinking for Safe Swallow: Intermittent Supervision Foods to Avoid: Swallowing Recommended Treatments: Recommendation for Speech: NA:Typical Evaluation Comment: On evaluation, Pt presented with oral and pharyngeal phase of swallow WNL on food and liquid consistencies, w/ no clinical s/s of aspiration. However Pt had wet vocal quality before onset of the evaluation which persisted through the evaluation until Pt was cued to cough to clear his throat. On cough, Pt expelled some mucous, and vocal quality cleared. ? if Pt has reflux causing throat irritation/mucous. Pt Swallow is WNL, recommend he continues on diet with REGULAR solid food and THIN liquids. Pt may be impulsive during meals, and may need to be cued to slow the rate of eating and drinking, take smaller bites and sips, as well as cuing to alternate liquids and solids. Some supervision during meals is recommended to allow for this type of monitoring/cuing. No further speech services are needed at this time, will D/C Pt from Speech Services. Recommendations sent by secure text to MD, discussed with Nursing. Frequency/Duration: n/a Date Range for Service Req: Timeline to reassess: Technology Architect Clinican/Clinical Fellow: No Supervisory Statement: I have reviewed and agree with the student/clinical fellow's documentation: N/A Speech Language Pathologist: Elly Ortega M.A., CCC-COTTAGE ATTENDANT
[2021-11-24 20:20] VITALS: BP 135/75; PULSE 72; RESP 19; TEMP 36.4; O2SAT 96
[2021-11-24] MEDS: traZODone HCL 100 MG TABLET PO (20:35)
[2021-11-24] MEDS: cloZAPine 100 MG TABLET 150 MG PO (20:35)
[2021-11-24] MEDS: Nystatin/Triamcinolone Cream 15 GM TUBE 1 APPL TOPICAL (20:36)
[2021-11-25] MEDS: Levothyroxine Sodium 175 MCG TABLET PO (04:28)
[2021-11-25 07:30] VITALS: BP 138/80; PULSE 69; RESP 16; TEMP 36.2; O2SAT 93
--- NOTE | 2021-11-25 08:25 | P.PNPSI_ITS ---
Subjective Subjective Date of Service: 11/25/21 Reason For Visit: Psychosis Subjective Notes: Conditional Voluntary Interim History: The nursing staff reported the patient has been fully compliant with treatment. Apparently he looks a little more irritable. Speech and Swallow already followed him and there is no problems. On interview the patient denies new symptoms, waiting for placement. he stated that today was not a good day and he refused to elaborate but he was redirectable Mental Status Exam Mental Status Exam Patient Appearance: Well Grooomed Patient Orientation: Person Level of Consciousness: Awake Patient Behavior: Guarded and Passive Mood Description: Withdrawn Affect Description: Constricted Patient Cognition Impaired: Yes Ability to Follow Directions: Good Speech Pattern: Clear Hallucinations: None Delusions: Paranoid Ideation Thought Process: Distracted and Evasive Thought Content: positive for [place] and positive for Poverty of Content Judgement: Fair Diagnostics Vital Signs (24Hr): Vital Signs - 24 hr 11/24/21 20:20 Temperature 97.6 F Pulse Rate 72 Respiratory Rate 19 Blood Pressure 135/75 Pulse Oximetry 96 BMI result Body Mass Index 30.9 Labs Results: 11/11/21 07:17 10/21/21 06:36 Imaging Radiology Impressions: ITS Impressions Head CT 10/15/21 21:29 IMPRESSION: No acute intracranial pathology. Medications Medications Current Medications Acetaminophen (Acetaminophen 325 Mg Tablet) 650 mg PO Q6H PRN PRN Reason: Headache/Pain Mild Scale (1-3) Last Admin: 11/20/21 20:37 Dose: 650 mg Documented by: Al Hydroxide/Mg Hydroxide (Magnesium Hydrox/Alum Hydrox 30 Ml Oral.Susp) 30 ml PO Q6H PRN PRN Reason: Heartburn/Nausea Last Admin: 11/16/21 08:24 Dose: 30 ml Documented by: Apixaban (Apixaban 5 Mg Tablet) 5 mg PO BID [facility] Last Admin: 11/24/21 20:34 Dose: 5 mg Documented by: Artificial Tears (Artificial Tears 15 Ml Drops) 2 drop EYE-BOTH QID [facility] Last Admin: 11/24/21 20:36 Dose: 2 drop Documented by: Carvedilol (Carvedilol 12.5 Mg Tablet) 12.5 mg PO BID [facility]; Protocol Last Admin: 11/24/21 20:34 Dose: 12.5 mg Documented by: Clozapine (Clozapine 100 Mg Tablet) 150 mg PO BEDTIME [facility] Last Admin: 11/24/21 20:35 Dose: 150 mg Documented by: Clozapine (Clozapine 100 Mg Tablet) 100 mg PO BID@0900,1300 [facility] Last Admin: 11/24/21 14:07 Dose: 100 mg Documented by: Haloperidol (Haloperidol 1 Mg Tablet) 2 mg PO TID [facility] Last Admin: 11/24/21 20:34 Dose: 2 mg Documented by: Haloperidol Lactate (Haloperidol Lactate 10 Mg/5 Ml Oral.Conc) 5 mg PO TID PRN PRN Reason: Psychosis Last Admin: 10/27/21 18:52 Dose: 5 mg Documented by: Lamotrigine (Lamotrigine 25 Mg Tablet) 37.5 mg PO BID [facility] Last Admin: 11/24/21 20:34 Dose: 37.5 mg Documented by: Levothyroxine Sodium (Levothyroxine Sodium 175 Mcg Tablet) 175 mcg PO DAILY@0600 [facility] Last Admin: 11/25/21 04:28 Dose: 175 mcg Documented by: [place] Carbonate ([place] Carbonate Er 450 Mg Tablet.Er) 450 mg PO BID [facility] Last Admin: 11/24/21 20:35 Dose: 450 mg Documented by: Magnesium Hydroxide (Milk Of Magnesia 30 Ml Oral.Susp) 30 ml PO DAILY PRN PRN Reason: Constipation Nystatin/Triamcinolone Acetonide (Nystatin/Triamcinolone Cream 15 Gm Tube) 1 appl TOPICAL BID [facility]; Protocol Last Admin: 11/24/21 20:36 Dose: 1 appl Documented by: Trazodone HCl (Trazodone Hcl 100 Mg Tablet) 100 mg PO BEDTIME [facility] Last Admin: 11/24/21 20:35 Dose: 100 mg Documented by: Trazodone HCl (Trazodone Hcl 50 Mg Tablet) 50 mg PO BEDTIME PRN PRN Reason: Insomnia Last Admin: 11/20/21 02:31 Dose: 50 mg Documented by: Allergies Allergies Allergy/AdvReac Type Severity Reaction Status Date / Time house dust Allergy Intermediate watery eyes Verified 08/20/21 11:33 adhesive Allergy Unknown Unknown Verified 10/15/21 14:32 fenofibrate Allergy Unknown Unknown Verified 10/15/21 14:32 Sulfa (Sulfonamide Allergy Unknown unknown Verified 10/15/21 14:32 Antibiotics) tomato Allergy Unknown Unknown Verified 10/15/21 14:32 Yeast Allergy Unknown Unknown Verified 10/15/21 14:32 zolpidem [From Ambien] Allergy Unknown Unknown Verified 10/15/21 14:32 lactose AdvReac Unknown Unknown Verified 10/15/21 14:32 Assessment & Plan Assessment & Plan (1) PAF (paroxysmal atrial fibrillation): Status: Acute Code(s): I48.0 - Paroxysmal atrial fibrillation (2) Schizoaffective disorder, bipolar type: Status: Acute Code(s): F25.0 - Schizoaffective disorder, bipolar type Plan Middle-aged male with a long history of schizoaffective disorder bipolar type and recent worsening of his cognition in correlation with dementia. Readmitted for impulsive behavior. Plan 1. Continue Clozaril and other medications. 2. Gather collateral information. 3. Placement for SNF most likely. I spent ___20___ minutes with the patient and/or on the patient floor today, greater than?50% of which was spent counseling/coordinating care. Informed Consent: further education needed Reason for contiued inpatient stay Substantial Risk for: inability to function, rapid decompensation and med/psych decompensation
[2021-11-25] MEDS: lamoTRIgine 25 MG TABLET 37.5 MG PO ×2 (12:04→20:19)
[2021-11-25] MEDS: Nystatin/Triamcinolone Cream 15 GM TUBE 1 APPL TOPICAL ×2 (12:05→20:22)
[2021-11-25] MEDS: Artificial Tears 15 ML DROPS 2 DROP EYE-BOTH ×4 (12:05→20:20)
[2021-11-25] MEDS: cloZAPine 100 MG TABLET PO ×2 (12:05→13:46)
[2021-11-25] MEDS: HaloperidoL 1 MG TABLET 2 MG PO ×3 (12:05→20:21)
[2021-11-25] MEDS: carvediloL 12.5 MG TABLET PO ×2 (12:05→20:20)
[2021-11-25] MEDS: Apixaban 5 MG TABLET PO ×2 (12:06→20:20)
[2021-11-25] MEDS: Lithium Carbonate ER 450 MG TABLET.ER PO ×2 (12:14→20:21)
[2021-11-25] MEDS: cloZAPine 100 MG TABLET 150 MG PO (20:21)
[2021-11-25] MEDS: traZODone HCL 100 MG TABLET PO (20:22)
[2021-11-25 21:18] VITALS: BP 120/63; PULSE 69; RESP 16; TEMP 36.9; O2SAT 96
[2021-11-25] MEDS: traZODone HCL 50 MG TABLET PO (23:38)
[2021-11-26] MEDS: Levothyroxine Sodium 175 MCG TABLET PO (05:34)
[2021-11-26 07:20] VITALS: BP 152/74; PULSE 80; RESP 18; TEMP 36.9; O2SAT 96
[2021-11-26 08:04] LABS: Neut%MD 75.9 %; Neutrophils Absolute Auto 7.6 x10*3/uL (2.0-8.3); WBCANC 10.1 X10*3/uL
--- NOTE | 2021-11-26 08:20 | P.PNPSI_ITS ---
Subjective Subjective Date of Service: 11/26/21 Reason For Visit: Psychosis Subjective Notes: Conditional Voluntary Interim History: The nursing staff reported the patient refused blood work yesterday. He was seen put in several layers of clothes on himself. He was in the common areas which in TV. He has been pleasant but isolative. Good appetite. The 3rd aved reported that he needed p.r.n. trazodone for sleep. On interview the patient stated that he wants to leave the hospital and he is bored. He is alert and oriented. Mental Status Exam Mental Status Exam Patient Appearance: Appropriate Patient Orientation: Person and Situation Level of Consciousness: Appropriate Patient Behavior: Guarded Mood Description: Withdrawn Affect Description: Constricted Patient Cognition Impaired: No Ability to Follow Directions: Good Speech Pattern: Clear Hallucinations: None Delusions: Paranoid Ideation Thought Process: Distracted and Evasive Thought Content: positive for Circumstantial and positive for Poverty of Content Judgement: Fair Diagnostics Vital Signs (24Hr): Vital Signs - 24 hr 11/25/21 21:18 Temperature 98.5 F Pulse Rate 69 Respiratory Rate 16 Blood Pressure 120/63 Pulse Oximetry 96 BMI result Body Mass Index 30.9 Labs Results: 11/11/21 07:17 10/21/21 06:36 Labs: Laboratory Results - last 48 hr 11/26/21 07:46 Absolute Neuts (auto) 7.6 Imaging Radiology Impressions: ITS Impressions Head CT 10/15/21 21:29 IMPRESSION: No acute intracranial pathology. Medications Medications Current Medications Acetaminophen (Acetaminophen 325 Mg Tablet) 650 mg PO Q6H PRN PRN Reason: Headache/Pain Mild Scale (1-3) Last Admin: 11/20/21 20:37 Dose: 650 mg Documented by: Al Hydroxide/Mg Hydroxide (Magnesium Hydrox/Alum Hydrox 30 Ml Oral.Susp) 30 ml PO Q6H PRN PRN Reason: Heartburn/Nausea Last Admin: 11/16/21 08:24 Dose: 30 ml Documented by: Apixaban (Apixaban 5 Mg Tablet) 5 mg PO BID [facility] Last Admin: 11/25/21 20:20 Dose: 5 mg Documented by: Artificial Tears (Artificial Tears 15 Ml Drops) 2 drop EYE-BOTH QID [facility] Last Admin: 11/25/21 20:20 Dose: 2 drop Documented by: Carvedilol (Carvedilol 12.5 Mg Tablet) 12.5 mg PO BID [facility]; Protocol Last Admin: 11/25/21 20:20 Dose: 12.5 mg Documented by: Clozapine (Clozapine 100 Mg Tablet) 150 mg PO BEDTIME [facility] Last Admin: 11/25/21 20:21 Dose: 150 mg Documented by: Clozapine (Clozapine 100 Mg Tablet) 100 mg PO BID@0900,1300 [facility] Last Admin: 11/25/21 13:46 Dose: 100 mg Documented by: Haloperidol (Haloperidol 1 Mg Tablet) 2 mg PO TID [facility] Last Admin: 11/25/21 20:21 Dose: 2 mg Documented by: Haloperidol Lactate (Haloperidol Lactate 10 Mg/5 Ml Oral.Conc) 5 mg PO TID PRN PRN Reason: Psychosis Last Admin: 10/27/21 18:52 Dose: 5 mg Documented by: Lamotrigine (Lamotrigine 25 Mg Tablet) 37.5 mg PO BID [facility] Last Admin: 11/25/21 20:19 Dose: 37.5 mg Documented by: Levothyroxine Sodium (Levothyroxine Sodium 175 Mcg Tablet) 175 mcg PO DAILY@0600 [facility] Last Admin: 11/26/21 05:34 Dose: 175 mcg Documented by: [place] Carbonate ([place] Carbonate Er 450 Mg Tablet.Er) 450 mg PO BID [facility] Last Admin: 11/25/21 20:21 Dose: 450 mg Documented by: Magnesium Hydroxide (Milk Of Magnesia 30 Ml Oral.Susp) 30 ml PO DAILY PRN PRN Reason: Constipation Nystatin/Triamcinolone Acetonide (Nystatin/Triamcinolone Cream 15 Gm Tube) 1 appl TOPICAL BID [facility]; Protocol Last Admin: 11/25/21 20:22 Dose: 1 appl Documented by: Trazodone HCl (Trazodone Hcl 100 Mg Tablet) 100 mg PO BEDTIME [facility] Last Admin: 11/25/21 20:22 Dose: 100 mg Documented by: Trazodone HCl (Trazodone Hcl 50 Mg Tablet) 50 mg PO BEDTIME PRN PRN Reason: Insomnia Last Admin: 11/25/21 23:38 Dose: 50 mg Documented by: Allergies Allergies Allergy/AdvReac Type Severity Reaction Status Date / Time house dust Allergy Intermediate watery eyes Verified 08/20/21 11:33 adhesive Allergy Unknown Unknown Verified 10/15/21 14:32 fenofibrate Allergy Unknown Unknown Verified 10/15/21 14:32 Sulfa (Sulfonamide Allergy Unknown unknown Verified 10/15/21 14:32 Antibiotics) tomato Allergy Unknown Unknown Verified 10/15/21 14:32 Yeast Allergy Unknown Unknown Verified 10/15/21 14:32 zolpidem [From Ambien] Allergy Unknown Unknown Verified 10/15/21 14:32 lactose AdvReac Unknown Unknown Verified 10/15/21 14:32 Assessment & Plan Assessment & Plan (1) PAF (paroxysmal atrial fibrillation): Status: Acute Code(s): I48.0 - Paroxysmal atrial fibrillation (2) Schizoaffective disorder, bipolar type: Status: Acute Code(s): F25.0 - Schizoaffective disorder, bipolar type Plan Middle-aged male with a long history of schizoaffective disorder bipolar type and recent worsening of his cognition in correlation with dementia. Readmitted for impulsive behavior. Plan 1. Continue Clozaril and other medications. 2. Gather collateral information. 3. Placement for SNF most likely. I spent __20____ minutes with the patient and/or on the patient floor today, greater than?50% of which was spent counseling/coordinating care. Reason for contiued inpatient stay Substantial Risk for: inability to function, rapid decompensation and med/psych decompensation
[2021-11-26] MEDS: cloZAPine 100 MG TABLET PO ×2 (09:07→14:34)
[2021-11-26] MEDS: carvediloL 12.5 MG TABLET PO ×2 (09:07→20:06)
[2021-11-26] MEDS: lamoTRIgine 25 MG TABLET 37.5 MG PO ×2 (09:07→20:08)
[2021-11-26] MEDS: Apixaban 5 MG TABLET PO ×2 (09:07→20:06)
[2021-11-26] MEDS: Lithium Carbonate ER 450 MG TABLET.ER PO ×2 (09:07→20:06)
[2021-11-26] MEDS: HaloperidoL 1 MG TABLET 2 MG PO ×3 (09:07→20:08)
[2021-11-26] MEDS: Artificial Tears 15 ML DROPS 2 DROP EYE-BOTH ×4 (09:08→20:09)
[2021-11-26] MEDS: Nystatin/Triamcinolone Cream 15 GM TUBE 1 APPL TOPICAL ×2 (09:08→20:10)
[2021-11-26 18:00] VITALS: BP 155/74; PULSE 76; RESP 18; TEMP 36.9; O2SAT 98
[2021-11-26] MEDS: traZODone HCL 100 MG TABLET PO (20:06)
[2021-11-26] MEDS: cloZAPine 100 MG TABLET 150 MG PO (20:06)
[2021-11-27] MEDS: Levothyroxine Sodium 175 MCG TABLET PO (05:38)
[2021-11-27 07:00] VITALS: BMI 30.7
[2021-11-27 07:10] VITALS: BP 139/72; PULSE 77; RESP 16; TEMP 36.8; O2SAT 97
[2021-11-27] MEDS: lamoTRIgine 25 MG TABLET 37.5 MG PO ×2 (08:45→21:14)
[2021-11-27] MEDS: HaloperidoL 1 MG TABLET 2 MG PO ×3 (08:45→21:14)
[2021-11-27] MEDS: Apixaban 5 MG TABLET PO ×2 (08:45→21:16)
[2021-11-27] MEDS: cloZAPine 100 MG TABLET PO ×2 (08:45→14:29)
[2021-11-27] MEDS: Lithium Carbonate ER 450 MG TABLET.ER PO ×2 (08:45→21:13)
[2021-11-27] MEDS: carvediloL 12.5 MG TABLET PO ×2 (08:46→21:15)
[2021-11-27] MEDS: Artificial Tears 15 ML DROPS 2 DROP EYE-BOTH ×2 (08:46→21:11)
--- NOTE | 2021-11-27 16:52 | P.PNPSI_ITS ---
Subjective Subjective Date of Service: 11/27/21 Reason For Visit: Psychosis Subjective Notes: Rm Warning Interim History: Patient seen and discussed with team. Patient evaluated today and upon interview he reports he is frustrated. Per staff field engineer, pt is irritable, refused lab work, says I had lab work a hundred times, dont even go there. He complains of commotion in the milieu. Says sleep and appetite are okay. Does not want med changes, keep it the same. In the milieu, patient is safe and found sitting in chair in common area. Denies SI/SIB/HI upon inquiry. Says he feels safe. Medication Compliance: Yes Side effects from medications: No Attending Groups: Intermittent Review of Systems Acute medical concerns: No Medical Review of Systems: unchanged Mental Status Exam Mental Status Exam Narrative: Patient Appearance:?Disheveled Patient Orientation:?Person and Situation Level of Consciousness:?Awake Patient Behavior:?Cooperative Mood Description:?Appropriate Affect Description:?Constricted Patient Cognition Impaired:?Yes Ability to Follow Directions:?Good Speech Pattern:?Clear Hallucinations:?None Delusions:?Paranoid Ideation Thought Process:?Distracted and Linear Thought Content:?positive for Poverty of Content, positive for Loose Associations and positive for Tangential Judgment:?Fair Diagnostics Vital Signs (24Hr): Vital Signs - 24 hr 11/26/21 18:00 11/27/21 07:10 Temperature 98.5 F 98.2 F Pulse Rate 76 77 Respiratory Rate 18 16 Blood Pressure 155/74 H 139/72 Pulse Oximetry 98 97 BMI result Body Mass Index 30.9 Labs Results: 11/11/21 07:17 10/21/21 06:36 Labs: Laboratory Results - last 48 hr 11/26/21 07:46 Absolute Neuts (auto) 7.6 Imaging Radiology Impressions: ITS Impressions Head CT 10/15/21 21:29 IMPRESSION: No acute intracranial pathology. Medications Medications Current Medications Acetaminophen (Acetaminophen 325 Mg Tablet) 650 mg PO Q6H PRN PRN Reason: Headache/Pain Mild Scale (1-3) Last Admin: 11/20/21 20:37 Dose: 650 mg Documented by: Al Hydroxide/Mg Hydroxide (Magnesium Hydrox/Alum Hydrox 30 Ml Oral.Susp) 30 ml PO Q6H PRN PRN Reason: Heartburn/Nausea Last Admin: 11/16/21 08:24 Dose: 30 ml Documented by: Apixaban (Apixaban 5 Mg Tablet) 5 mg PO BID [facility] Last Admin: 11/27/21 08:45 Dose: 5 mg Documented by: Artificial Tears (Artificial Tears 15 Ml Drops) 2 drop EYE-BOTH QID [facility] Last Admin: 11/27/21 14:02 Dose: Not Given Documented by: Carvedilol (Carvedilol 12.5 Mg Tablet) 12.5 mg PO BID [facility]; Protocol Last Admin: 11/27/21 08:46 Dose: 12.5 mg Documented by: Clozapine (Clozapine 100 Mg Tablet) 150 mg PO BEDTIME [facility] Last Admin: 11/26/21 20:06 Dose: 150 mg Documented by: Clozapine (Clozapine 100 Mg Tablet) 100 mg PO BID@0900,1300 [facility] Last Admin: 11/27/21 14:29 Dose: 100 mg Documented by: Haloperidol (Haloperidol 1 Mg Tablet) 2 mg PO TID [facility] Last Admin: 11/27/21 14:29 Dose: 2 mg Documented by: Haloperidol Lactate (Haloperidol Lactate 10 Mg/5 Ml Oral.Conc) 5 mg PO TID PRN PRN Reason: Psychosis Last Admin: 10/27/21 18:52 Dose: 5 mg Documented by: Lamotrigine (Lamotrigine 25 Mg Tablet) 37.5 mg PO BID [facility] Last Admin: 11/27/21 08:45 Dose: 37.5 mg Documented by: Levothyroxine Sodium (Levothyroxine Sodium 175 Mcg Tablet) 175 mcg PO DAILY@0600 [facility] Last Admin: 11/27/21 05:38 Dose: 175 mcg Documented by: [place] Carbonate ([place] Carbonate Er 450 Mg Tablet.Er) 450 mg PO BID [facility] Last Admin: 11/27/21 08:45 Dose: 450 mg Documented by: Magnesium Hydroxide (Milk Of Magnesia 30 Ml Oral.Susp) 30 ml PO DAILY PRN PRN Reason: Constipation Nystatin/Triamcinolone Acetonide (Nystatin/Triamcinolone Cream 15 Gm Tube) 1 appl TOPICAL BID [facility]; Protocol Last Admin: 11/27/21 08:46 Dose: Not Given Documented by: Trazodone HCl (Trazodone Hcl 100 Mg Tablet) 100 mg PO BEDTIME [facility] Last Admin: 11/26/21 20:06 Dose: 100 mg Documented by: Trazodone HCl (Trazodone Hcl 50 Mg Tablet) 50 mg PO BEDTIME PRN PRN Reason: Insomnia Last Admin: 11/25/21 23:38 Dose: 50 mg Documented by: Allergies Allergies Allergy/AdvReac Type Severity Reaction Status Date / Time house dust Allergy Intermediate watery eyes Verified 08/20/21 11:33 adhesive Allergy Unknown Unknown Verified 10/15/21 14:32 fenofibrate Allergy Unknown Unknown Verified 10/15/21 14:32 Sulfa (Sulfonamide Allergy Unknown unknown Verified 10/15/21 14:32 Antibiotics) tomato Allergy Unknown Unknown Verified 10/15/21 14:32 Yeast Allergy Unknown Unknown Verified 10/15/21 14:32 zolpidem [From Ambien] Allergy Unknown Unknown Verified 10/15/21 14:32 lactose AdvReac Unknown Unknown Verified 10/15/21 14:32 Assessment & Plan Assessment & Plan (1) PAF (paroxysmal atrial fibrillation): Status: Acute Code(s): I48.0 - Paroxysmal atrial fibrillation (2) Schizoaffective disorder, bipolar type: Status: Acute Code(s): F25.0 - Schizoaffective disorder, bipolar type Plan Middle-aged male with a long history of schizoaffective disorder bipolar type and recent worsening of his cognition in correlation with dementia. Readmitted for impulsive behavior. Plan 1. Continue Clozaril and other medications. 2. Gather collateral information. 3. Placement for SNF most likely. I spent minutes with the patient and/or on the patient floor today, greater than?50% of which was spent counseling/coordinating care. Reason for contiued inpatient stay Substantial Risk for: rapid decompensation and med/psych decompensation
[2021-11-27 17:10] VITALS: BP 125/59; PULSE 83; RESP 18; TEMP 36.9; O2SAT 97
[2021-11-27] MEDS: cloZAPine 100 MG TABLET 150 MG PO (21:12)
[2021-11-27] MEDS: traZODone HCL 100 MG TABLET PO (21:13)
[2021-11-28] MEDS: Levothyroxine Sodium 175 MCG TABLET PO (05:35)
[2021-11-28 08:00] VITALS: BP 142/82; PULSE 77; RESP 16; TEMP 36.6; O2SAT 94
[2021-11-28] MEDS: lamoTRIgine 25 MG TABLET 37.5 MG PO ×2 (08:31→21:22)
[2021-11-28] MEDS: Apixaban 5 MG TABLET PO ×2 (08:31→21:20)
[2021-11-28] MEDS: HaloperidoL 1 MG TABLET 2 MG PO ×3 (08:32→21:22)
[2021-11-28] MEDS: Lithium Carbonate ER 450 MG TABLET.ER PO ×2 (08:32→21:23)
[2021-11-28] MEDS: carvediloL 12.5 MG TABLET PO ×2 (08:32→21:20)
[2021-11-28] MEDS: cloZAPine 100 MG TABLET PO ×2 (08:32→13:21)
[2021-11-28] MEDS: Artificial Tears 15 ML DROPS 2 DROP EYE-BOTH ×4 (08:33→21:20)
[2021-11-28] MEDS: Nystatin/Triamcinolone Cream 15 GM TUBE 1 APPL TOPICAL ×2 (08:33→21:28)
--- NOTE | 2021-11-28 11:18 | P.PNPSI_ITS ---
Subjective Subjective Date of Service: 11/28/21 Reason For Visit: Psychosis Subjective Notes: Conditional Voluntary Interim History: The nursing staff reported the patient is fully compliant with treatment, he is pleasant and cooperative with disorganized and confused at times. Sporadically his resistive to care and needs reassurance on taking medications. On interview today the patient was animated but very disorganized and easily redirectabl.e Mental Status Exam Mental Status Exam Patient Appearance: Disheveled Patient Orientation: Person and Situation Level of Consciousness: Awake Patient Behavior: Cooperative Mood Description: Appropriate Affect Description: Constricted Patient Cognition Impaired: Yes Ability to Follow Directions: Good Speech Pattern: Clear Hallucinations: None Delusions: Paranoid Ideation Thought Process: Distracted and Linear Thought Content: positive for Poverty of Content, positive for Loose Associations and positive for Tangential Judgement: Fair Diagnostics Vital Signs (24Hr): Vital Signs - 24 hr 11/27/21 17:10 Temperature 98.5 F Pulse Rate 83 Respiratory Rate 18 Blood Pressure 125/59 L Pulse Oximetry 97 BMI result Body Mass Index 30.7 Labs Results: 11/11/21 07:17 10/21/21 06:36 Imaging Radiology Impressions: ITS Impressions Head CT 10/15/21 21:29 IMPRESSION: No acute intracranial pathology. Medications Medications Current Medications Acetaminophen (Acetaminophen 325 Mg Tablet) 650 mg PO Q6H PRN PRN Reason: Headache/Pain Mild Scale (1-3) Last Admin: 11/20/21 20:37 Dose: 650 mg Documented by: Al Hydroxide/Mg Hydroxide (Magnesium Hydrox/Alum Hydrox 30 Ml Oral.Susp) 30 ml PO Q6H PRN PRN Reason: Heartburn/Nausea Last Admin: 11/16/21 08:24 Dose: 30 ml Documented by: Apixaban (Apixaban 5 Mg Tablet) 5 mg PO BID [facility] Last Admin: 11/28/21 08:31 Dose: 5 mg Documented by: Artificial Tears (Artificial Tears 15 Ml Drops) 2 drop EYE-BOTH QID [facility] Last Admin: 11/28/21 08:33 Dose: 2 drop Documented by: Carvedilol (Carvedilol 12.5 Mg Tablet) 12.5 mg PO BID [facility]; Protocol Last Admin: 11/28/21 08:32 Dose: 12.5 mg Documented by: Clozapine (Clozapine 100 Mg Tablet) 150 mg PO BEDTIME [facility] Last Admin: 11/27/21 21:12 Dose: 150 mg Documented by: Clozapine (Clozapine 100 Mg Tablet) 100 mg PO BID@0900,1300 [facility] Last Admin: 11/28/21 08:32 Dose: 100 mg Documented by: Haloperidol (Haloperidol 1 Mg Tablet) 2 mg PO TID [facility] Last Admin: 11/28/21 08:32 Dose: 2 mg Documented by: Haloperidol Lactate (Haloperidol Lactate 10 Mg/5 Ml Oral.Conc) 5 mg PO TID PRN PRN Reason: Psychosis Last Admin: 10/27/21 18:52 Dose: 5 mg Documented by: Lamotrigine (Lamotrigine 25 Mg Tablet) 37.5 mg PO BID [facility] Last Admin: 11/28/21 08:31 Dose: 37.5 mg Documented by: Levothyroxine Sodium (Levothyroxine Sodium 175 Mcg Tablet) 175 mcg PO DAILY@0600 [facility] Last Admin: 11/28/21 05:35 Dose: 175 mcg Documented by: [place] Carbonate ([place] Carbonate Er 450 Mg Tablet.Er) 450 mg PO BID [facility] Last Admin: 11/28/21 08:32 Dose: 450 mg Documented by: Magnesium Hydroxide (Milk Of Magnesia 30 Ml Oral.Susp) 30 ml PO DAILY PRN PRN Reason: Constipation Nystatin/Triamcinolone Acetonide (Nystatin/Triamcinolone Cream 15 Gm Tube) 1 appl TOPICAL BID [facility]; Protocol Last Admin: 11/28/21 08:33 Dose: 1 appl Documented by: Trazodone HCl (Trazodone Hcl 100 Mg Tablet) 100 mg PO BEDTIME [facility] Last Admin: 11/27/21 21:13 Dose: 100 mg Documented by: Trazodone HCl (Trazodone Hcl 50 Mg Tablet) 50 mg PO BEDTIME PRN PRN Reason: Insomnia Last Admin: 11/25/21 23:38 Dose: 50 mg Documented by: Allergies Allergies Allergy/AdvReac Type Severity Reaction Status Date / Time house dust Allergy Intermediate watery eyes Verified 08/20/21 11:33 adhesive Allergy Unknown Unknown Verified 10/15/21 14:32 fenofibrate Allergy Unknown Unknown Verified 10/15/21 14:32 Sulfa (Sulfonamide Allergy Unknown unknown Verified 10/15/21 14:32 Antibiotics) tomato Allergy Unknown Unknown Verified 10/15/21 14:32 Yeast Allergy Unknown Unknown Verified 10/15/21 14:32 zolpidem [From Ambien] Allergy Unknown Unknown Verified 10/15/21 14:32 lactose AdvReac Unknown Unknown Verified 10/15/21 14:32 Assessment & Plan Assessment & Plan (1) PAF (paroxysmal atrial fibrillation): Status: Acute Code(s): I48.0 - Paroxysmal atrial fibrillation (2) Schizoaffective disorder, bipolar type: Status: Acute Code(s): F25.0 - Schizoaffective disorder, bipolar type Plan Middle-aged male with a long history of schizoaffective disorder bipolar type and recent worsening of his cognition in correlation with dementia. Readmitted for impulsive behavior. Plan 1. Continue Clozaril and other medications. 2. Gather collateral information. 3. Placement for SNF most likely. I spent ___20___ minutes with the patient and/or on the patient floor today, greater than?50% of which was spent counseling/coordinating care. Reason for contiued inpatient stay Substantial Risk for: inability to function, rapid decompensation and med/psych decompensation
[2021-11-28] MEDS: cloZAPine 100 MG TABLET 150 MG PO (21:21)
[2021-11-28] MEDS: traZODone HCL 100 MG TABLET PO (21:23)
[2021-11-28] MEDS: Acetaminophen 325 MG TABLET 650 MG PO (21:24)
[2021-11-28 21:37] VITALS: BP 139/68; PULSE 72; RESP 18; TEMP 37.3; O2SAT 96
[2021-11-29 02:50] VITALS: BP 122/62; PULSE 85; RESP 17; TEMP 36.6; O2SAT 94
[2021-11-29] MEDS: Magnesium Hydrox/Alum Hydrox 30 ML ORAL.SUSP PO (04:41)
[2021-11-29] MEDS: Levothyroxine Sodium 175 MCG TABLET PO (05:48)
[2021-11-29 08:15] VITALS: BP 123/59; PULSE 89; TEMP 37; O2SAT 96
[2021-11-29] MEDS: Lithium Carbonate ER 450 MG TABLET.ER PO ×2 (08:42→19:56)
[2021-11-29] MEDS: cloZAPine 100 MG TABLET PO ×2 (08:43→15:14)
[2021-11-29] MEDS: Apixaban 5 MG TABLET PO ×2 (08:43→19:56)
[2021-11-29] MEDS: HaloperidoL 1 MG TABLET 2 MG PO ×3 (08:43→19:56)
[2021-11-29] MEDS: lamoTRIgine 25 MG TABLET 37.5 MG PO ×2 (08:43→19:56)
[2021-11-29] MEDS: Acetaminophen 325 MG TABLET 650 MG PO (19:55)
[2021-11-29] MEDS: traZODone HCL 100 MG TABLET PO (19:55)
[2021-11-29] MEDS: cloZAPine 100 MG TABLET 150 MG PO (19:56)
[2021-11-29] MEDS: carvediloL 12.5 MG TABLET PO (19:57)
[2021-11-29] MEDS: Nystatin/Triamcinolone Cream 15 GM TUBE 1 APPL TOPICAL (19:57)
[2021-11-29] MEDS: Artificial Tears 15 ML DROPS 2 DROP EYE-BOTH (19:57)
--- NOTE | 2021-11-29 20:12 | HO.PSYCHPN ---
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 per staff, vomited x2 today. malaise. depressed. slept a little overnight. decreased PO intake today. foul-smelling diarrhea. Mental Status Exam Mental Status Exam Patient Appearance: Disheveled Patient Orientation: Person and Situation Level of Consciousness: Awake Patient Behavior: Cooperative Mood Description: Appropriate Affect Description: Constricted Patient Cognition Impaired: Yes Ability to Follow Directions: Good Speech Pattern: Clear Hallucinations: None Thought Process: Linear Thought Content: positive for Poverty of Content Judgement: Fair Diagnostics Vital Signs (24Hr): Vital Signs - 24 hr 11/28/21 21:37 11/29/21 02:50 11/29/21 08:15 Temperature 99.2 F 98 F 98.6 F Pulse Rate 72 85 89 Respiratory Rate 18 17 Blood Pressure 139/68 122/62 123/59 L Pulse Oximetry 96 94 96 BMI result Body Mass Index 30.7 Labs Results: 11/11/21 07:17 10/21/21 06:36 Imaging Radiology Impressions: ITS Impressions Head CT 10/15/21 21:29 IMPRESSION: No acute intracranial pathology. Medications Medications Current Medications Acetaminophen (Acetaminophen 325 Mg Tablet) 650 mg PO Q6H PRN PRN Reason: Headache/Pain Mild Scale (1-3) Last Admin: 11/29/21 19:55 Dose: 650 mg Documented by: Al Hydroxide/Mg Hydroxide (Magnesium Hydrox/Alum Hydrox 30 Ml Oral.Susp) 30 ml PO Q6H PRN PRN Reason: Heartburn/Nausea Last Admin: 11/29/21 04:41 Dose: 30 ml Documented by: Apixaban (Apixaban 5 Mg Tablet) 5 mg PO BID [facility] Last Admin: 11/29/21 19:56 Dose: 5 mg Documented by: Artificial Tears (Artificial Tears 15 Ml Drops) 2 drop EYE-BOTH QID [facility] Last Admin: 11/29/21 19:57 Dose: 2 drop Documented by: Carvedilol (Carvedilol 12.5 Mg Tablet) 12.5 mg PO BID [facility]; Protocol Last Admin: 11/29/21 19:57 Dose: 12.5 mg Documented by: Clozapine (Clozapine 100 Mg Tablet) 150 mg PO BEDTIME [facility] Last Admin: 11/29/21 19:56 Dose: 150 mg Documented by: Clozapine (Clozapine 100 Mg Tablet) 100 mg PO BID@0900,1300 [facility] Last Admin: 11/29/21 15:14 Dose: 100 mg Documented by: Haloperidol (Haloperidol 1 Mg Tablet) 2 mg PO TID [facility] Last Admin: 11/29/21 19:56 Dose: 2 mg Documented by: Haloperidol Lactate (Haloperidol Lactate 10 Mg/5 Ml Oral.Conc) 5 mg PO TID PRN PRN Reason: Psychosis Last Admin: 10/27/21 18:52 Dose: 5 mg Documented by: Lamotrigine (Lamotrigine 25 Mg Tablet) 37.5 mg PO BID [facility] Last Admin: 11/29/21 19:56 Dose: 37.5 mg Documented by: Levothyroxine Sodium (Levothyroxine Sodium 175 Mcg Tablet) 175 mcg PO DAILY@0600 [facility] Last Admin: 11/29/21 05:48 Dose: 175 mcg Documented by: [place] Carbonate ([place] Carbonate Er 450 Mg Tablet.Er) 450 mg PO BID [facility] Last Admin: 11/29/21 19:56 Dose: 450 mg Documented by: Magnesium Hydroxide (Milk Of Magnesia 30 Ml Oral.Susp) 30 ml PO DAILY PRN PRN Reason: Constipation Nystatin/Triamcinolone Acetonide (Nystatin/Triamcinolone Cream 15 Gm Tube) 1 appl TOPICAL BID [facility]; Protocol Last Admin: 11/29/21 19:57 Dose: 1 appl Documented by: Trazodone HCl (Trazodone Hcl 100 Mg Tablet) 100 mg PO BEDTIME [facility] Last Admin: 11/29/21 19:55 Dose: 100 mg Documented by: Trazodone HCl (Trazodone Hcl 50 Mg Tablet) 50 mg PO BEDTIME PRN PRN Reason: Insomnia Last Admin: 11/25/21 23:38 Dose: 50 mg Documented by: Allergies Allergies Allergy/AdvReac Type Severity Reaction Status Date / Time house dust Allergy Intermediate watery eyes Verified 08/20/21 11:33 adhesive Allergy Unknown Unknown Verified 10/15/21 14:32 fenofibrate Allergy Unknown Unknown Verified 10/15/21 14:32 Sulfa (Sulfonamide Allergy Unknown unknown Verified 10/15/21 14:32 Antibiotics) tomato Allergy Unknown Unknown Verified 10/15/21 14:32 Yeast Allergy Unknown Unknown Verified 10/15/21 14:32 zolpidem [From Ambien] Allergy Unknown Unknown Verified 10/15/21 14:32 lactose AdvReac Unknown Unknown Verified 10/15/21 14:32 Assessment & Plan Assessment & Plan (1) PAF (paroxysmal atrial fibrillation): Status: Acute Code(s): I48.0 - Paroxysmal atrial fibrillation (2) Schizoaffective disorder, bipolar type: Status: Acute Code(s): F25.0 - Schizoaffective disorder, bipolar type Plan Middle-aged male with a long history of schizoaffective disorder bipolar type and recent worsening of his cognition in correlation with dementia. Readmitted for impulsive behavior. Plan 1. Continue Clozaril and other medications. 2. Gather collateral information. 3. Placement for SNF most likely. I spent ___15___ minutes with the patient and/or on the patient floor today, greater than?50% of which was spent counseling/coordinating care. Reason for contiued inpatient stay Substantial Risk for: inability to function and rapid decompensation
[2021-11-29 20:39] VITALS: BP 121/68; PULSE 96; RESP 16; TEMP 37.4; O2SAT 96
[2021-11-30 00:30] VITALS: TEMP 36.8
[2021-11-30] MEDS: Levothyroxine Sodium 175 MCG TABLET PO (05:14)
[2021-11-30 08:00] VITALS: BP 110/72; PULSE 86; TEMP 36.6; O2SAT 95
[2021-11-30] MEDS: Apixaban 5 MG TABLET PO ×2 (08:58→20:06)
[2021-11-30] MEDS: HaloperidoL 1 MG TABLET 2 MG PO ×3 (08:58→20:06)
[2021-11-30] MEDS: lamoTRIgine 25 MG TABLET 37.5 MG PO ×2 (08:58→20:04)
[2021-11-30] MEDS: cloZAPine 100 MG TABLET PO ×2 (08:59→15:18)
[2021-11-30] MEDS: Lithium Carbonate ER 450 MG TABLET.ER PO ×2 (08:59→20:05)
[2021-11-30] MEDS: carvediloL 12.5 MG TABLET PO ×2 (08:59→20:04)
[2021-11-30 12:36] LABS: Adenovirus PCR Not Detected (Not Detect.); Bordetella parapertussis PCR Not Detected (Not Detect.); Bordetella pertussis PCR Not Detected (Not Detect.); Chlamydia pneumoniae PCR Not Detected (Not Detect.); Coronavirus 229E PCR Not Detected (Not Detect.); Coronavirus HKU1 PCR Not Detected (Not Detect.); Coronavirus NL63 PCR Not Detected (Not Detect.); Coronavirus OC43 PCR Not Detected (Not Detect.); Human metapneumovirus PCR Not Detected (Not Detect.); Influenza A PCR Not Detected (Not Detect.); Influenza B PCR Not Detected (Not Detect.); Mycoplasma pneumoniae PCR Not Detected (Not Detect.); Parainfluenza 1 PCR Not Detected (Not Detect.); Parainfluenza 2 PCR Not Detected (Not Detect.); Parainfluenza 3 PCR Not Detected (Not Detect.); Parainfluenza 4 PCR Not Detected (Not Detect.); RSV PCR Not Detected (Not Detect.); Rhino/Enterovirus PCR Not Detected (Not Detect.); SARS-CoV-2 PCR Not Detected (Not Detect.)
--- NOTE | 2021-11-30 14:32 | P.PNPSI_ITS ---
Subjective Subjective Date of Service: 11/30/21 Reason For Visit: Psychosis Interim History: pt requests help readjusting his kary, no other complaints or requests. he becomes somewhat irate as MD offers help and suggests what the problem might be. he demands the aid of particular RN who is visible in the mas at the time. MD passes pt's word on as pt has become clearly angered by the delay, RN aids pt. per staff, isolative to room. diarrhea. sad and quiet. diarrhea x 4 ove rnight. Mental Status Exam Mental Status Exam Patient Appearance: Disheveled Patient Orientation: Person and Situation Level of Consciousness: Awake Patient Behavior: Suspicious and Resistive to Care Mood Description: Hostile Affect Description: Constricted Patient Cognition Impaired: Yes Ability to Follow Directions: Good Speech Pattern: Clear Hallucinations: None Thought Process: Linear Thought Content: positive for Poverty of Content Judgement: Fair Diagnostics Vital Signs (24Hr): Vital Signs - 24 hr 11/29/21 20:39 11/30/21 00:30 11/30/21 08:00 Temperature 99.3 F 98.3 F 97.8 F Pulse Rate 96 86 Respiratory Rate 16 Blood Pressure 121/68 110/72 Pulse Oximetry 96 95 BMI result Body Mass Index 30.7 Labs Results: 11/11/21 07:17 10/21/21 06:36 Labs: Laboratory Results - last 48 hr 11/29/21 18:07 Respiratory Panel [place] SEE NOTE Adenovirus (Rapid PCR) Not Detected B.pert (TEM-PCR) Not Detected B.parapertussis DNA PCR Not Detected C. pneumoniae DNA (PCR) Not Detected Coronavirus OC43 (PCR) Not Detected Coronavirus HKU1 (PCR) Not Detected Coronavirus 229E (PCR) Not Detected Coronavirus NL63 (PCR) Not Detected Human Metapneumovir PCR Not Detected Influenza A (RT-PCR) Not Detected Influenza B (RT-PCR) Not Detected M. pneumoniae (PCR) Not Detected Parainfluenza 1 (PCR) Not Detected Parainfluenza 2 (PCR) Not Detected Parainfluenza 3 (PCR) Not Detected Parainfluenza 4 (PCR) Not Detected RSV (PCR) Not Detected Entero/Rhino (PCR) Not Detected SARS-CoV-2 RNA (RT-PCR) Not Detected Imaging Radiology Impressions: ITS Impressions Head CT 10/15/21 21:29 IMPRESSION: No acute intracranial pathology. Medications Medications Current Medications Acetaminophen (Acetaminophen 325 Mg Tablet) 650 mg PO Q6H PRN PRN Reason: Headache/Pain Mild Scale (1-3) Last Admin: 11/29/21 19:55 Dose: 650 mg Documented by: Al Hydroxide/Mg Hydroxide (Magnesium Hydrox/Alum Hydrox 30 Ml Oral.Susp) 30 ml PO Q6H PRN PRN Reason: Heartburn/Nausea Last Admin: 11/29/21 04:41 Dose: 30 ml Documented by: Apixaban (Apixaban 5 Mg Tablet) 5 mg PO BID [facility] Last Admin: 11/30/21 08:58 Dose: 5 mg Documented by: Artificial Tears (Artificial Tears 15 Ml Drops) 2 drop EYE-BOTH QID [facility] Last Admin: 11/30/21 10:11 Dose: Not Given Documented by: Carvedilol (Carvedilol 12.5 Mg Tablet) 12.5 mg PO BID [facility]; Protocol Last Admin: 11/30/21 08:59 Dose: 12.5 mg Documented by: Clozapine (Clozapine 100 Mg Tablet) 150 mg PO BEDTIME [facility] Last Admin: 11/29/21 19:56 Dose: 150 mg Documented by: Clozapine (Clozapine 100 Mg Tablet) 100 mg PO BID@0900,1300 [facility] Last Admin: 11/30/21 08:59 Dose: 100 mg Documented by: Haloperidol (Haloperidol 1 Mg Tablet) 2 mg PO TID [facility] Last Admin: 11/30/21 08:58 Dose: 2 mg Documented by: Haloperidol Lactate (Haloperidol Lactate 10 Mg/5 Ml Oral.Conc) 5 mg PO TID PRN PRN Reason: Psychosis Last Admin: 10/27/21 18:52 Dose: 5 mg Documented by: Lamotrigine (Lamotrigine 25 Mg Tablet) 37.5 mg PO BID [facility] Last Admin: 11/30/21 08:58 Dose: 37.5 mg Documented by: Levothyroxine Sodium (Levothyroxine Sodium 175 Mcg Tablet) 175 mcg PO DAILY@0600 [facility] Last Admin: 11/30/21 05:14 Dose: 175 mcg Documented by: [place] Carbonate ([place] Carbonate Er 450 Mg Tablet.Er) 450 mg PO BID [facility] Last Admin: 11/30/21 08:59 Dose: 450 mg Documented by: [place] Hydroxide (Milk Of Magnesia 30 Ml Oral.Susp) 30 ml PO DAILY PRN PRN Reason: Constipation Nystatin/Triamcinolone Acetonide (Nystatin/Triamcinolone Cream 15 Gm Tube) 1 appl TOPICAL BID [facility]; Protocol Last Admin: 11/30/21 10:11 Dose: Not Given Documented by: Trazodone HCl (Trazodone Hcl 100 Mg Tablet) 100 mg PO BEDTIME [facility] Last Admin: 11/29/21 19:55 Dose: 100 mg Documented by: Trazodone HCl (Trazodone Hcl 50 Mg Tablet) 50 mg PO BEDTIME PRN PRN Reason: Insomnia Last Admin: 11/25/21 23:38 Dose: 50 mg Documented by: Allergies Allergies Allergy/AdvReac Type Severity Reaction Status Date / Time house dust Allergy Intermediate watery eyes Verified 08/20/21 11:33 adhesive Allergy Unknown Unknown Verified 10/15/21 14:32 fenofibrate Allergy Unknown Unknown Verified 10/15/21 14:32 Sulfa (Sulfonamide Allergy Unknown unknown Verified 10/15/21 14:32 Antibiotics) tomato Allergy Unknown Unknown Verified 10/15/21 14:32 Yeast Allergy Unknown Unknown Verified 10/15/21 14:32 zolpidem [From Ambien] Allergy Unknown Unknown Verified 10/15/21 14:32 lactose AdvReac Unknown Unknown Verified 10/15/21 14:32 Assessment & Plan Assessment & Plan (1) PAF (paroxysmal atrial fibrillation): Status: Acute Code(s): I48.0 - Paroxysmal atrial fibrillation (2) Schizoaffective disorder, bipolar type: Status: Acute Code(s): F25.0 - Schizoaffective disorder, bipolar type Plan Middle-aged male with a long history of schizoaffective disorder bipolar type and recent worsening of his cognition in correlation with dementia. Readmitted for impulsive behavior. Plan 1. Continue Clozaril and other medications. 2. Gather collateral information. 3. Placement for SNF most likely. I spent ___15___ minutes with the patient and/or on the patient floor today, greater than?50% of which was spent counseling/coordinating care. Reason for contiued inpatient stay Substantial Risk for: inability to function and rapid decompensation
[2021-11-30 18:00] VITALS: BP 101/56; PULSE 80; RESP 18; TEMP 36.2; O2SAT 96
[2021-11-30] MEDS: cloZAPine 100 MG TABLET 150 MG PO (20:05)
[2021-11-30] MEDS: traZODone HCL 100 MG TABLET PO (20:06)
[2021-12-01] MEDS: Levothyroxine Sodium 175 MCG TABLET PO (05:18)
--- NOTE | 2021-12-01 08:18 | HO.PSYCHPN ---
Subjective Subjective Date of Service: 12/01/21 Reason For Visit: Psychosis Subjective Notes: Conditional Voluntary Interim History: The nursing staff reported the patient has nausea vomiting and diarrhea over the weekend. He has taking liquids and he has been med compliant. He has been on isolation as per infection control protocol. On interview the patient denies new symptoms he is pleasant and cooperative. Mental Status Exam Mental Status Exam Patient Appearance: Disheveled Patient Orientation: Person and Situation Level of Consciousness: Awake Patient Behavior: Cooperative Mood Description: Calm and Withdrawn Affect Description: Constricted Patient Cognition Impaired: Yes Ability to Follow Directions: Good Speech Pattern: Clear Hallucinations: None Delusions: Paranoid Ideation Thought Process: Distracted and Evasive Thought Content: positive for [place], positive for [place] and positive for Poverty of Content Judgement: Fair Diagnostics Vital Signs (24Hr): Vital Signs - 24 hr 11/30/21 18:00 Temperature 97.2 F Pulse Rate 80 Respiratory Rate 18 Blood Pressure 101/56 L Pulse Oximetry 96 BMI result Body Mass Index 30.7 Labs Results: 11/11/21 07:17 10/21/21 06:36 Labs: Laboratory Results - last 48 hr 11/29/21 18:07 Respiratory Panel [place] SEE NOTE Adenovirus (Rapid PCR) Not Detected B.pert (TEM-PCR) Not Detected B.parapertussis DNA PCR Not Detected C. pneumoniae DNA (PCR) Not Detected Coronavirus OC43 (PCR) Not Detected Coronavirus HKU1 (PCR) Not Detected Coronavirus 229E (PCR) Not Detected Coronavirus NL63 (PCR) Not Detected Human Metapneumovir PCR Not Detected Influenza A (RT-PCR) Not Detected Influenza B (RT-PCR) Not Detected M. pneumoniae (PCR) Not Detected Parainfluenza 1 (PCR) Not Detected Parainfluenza 2 (PCR) Not Detected Parainfluenza 3 (PCR) Not Detected Parainfluenza 4 (PCR) Not Detected RSV (PCR) Not Detected Entero/Rhino (PCR) Not Detected SARS-CoV-2 RNA (RT-PCR) Not Detected Imaging Radiology Impressions: ITS Impressions Head CT 10/15/21 21:29 IMPRESSION: No acute intracranial pathology. Medications Medications Current Medications Acetaminophen (Acetaminophen 325 Mg Tablet) 650 mg PO Q6H PRN PRN Reason: Headache/Pain Mild Scale (1-3) Last Admin: 11/29/21 19:55 Dose: 650 mg Documented by: Al Hydroxide/Mg Hydroxide (Magnesium Hydrox/Alum Hydrox 30 Ml Oral.Susp) 30 ml PO Q6H PRN PRN Reason: Heartburn/Nausea Last Admin: 11/29/21 04:41 Dose: 30 ml Documented by: Apixaban (Apixaban 5 Mg Tablet) 5 mg PO BID [facility] Last Admin: 11/30/21 20:06 Dose: 5 mg Documented by: Artificial Tears (Artificial Tears 15 Ml Drops) 2 drop EYE-BOTH QID [facility] Last Admin: 11/30/21 20:11 Dose: Not Given Documented by: Carvedilol (Carvedilol 12.5 Mg Tablet) 12.5 mg PO BID [facility]; Protocol Last Admin: 11/30/21 20:04 Dose: 12.5 mg Documented by: Clozapine (Clozapine 100 Mg Tablet) 150 mg PO BEDTIME [facility] Last Admin: 11/30/21 20:05 Dose: 150 mg Documented by: Clozapine (Clozapine 100 Mg Tablet) 100 mg PO BID@0900,1300 [facility] Last Admin: 11/30/21 15:18 Dose: 100 mg Documented by: Haloperidol (Haloperidol 1 Mg Tablet) 2 mg PO TID [facility] Last Admin: 11/30/21 20:06 Dose: 2 mg Documented by: Haloperidol Lactate (Haloperidol Lactate 10 Mg/5 Ml Oral.Conc) 5 mg PO TID PRN PRN Reason: Psychosis Last Admin: 10/27/21 18:52 Dose: 5 mg Documented by: Lamotrigine (Lamotrigine 25 Mg Tablet) 37.5 mg PO BID [facility] Last Admin: 11/30/21 20:04 Dose: 37.5 mg Documented by: Levothyroxine Sodium (Levothyroxine Sodium 175 Mcg Tablet) 175 mcg PO DAILY@0600 [facility] Last Admin: 12/01/21 05:18 Dose: 175 mcg Documented by: [place] Carbonate ([place] Carbonate Er 450 Mg Tablet.Er) 450 mg PO BID [facility] Last Admin: 11/30/21 20:05 Dose: 450 mg Documented by: Magnesium Hydroxide (Milk Of Magnesia 30 Ml Oral.Susp) 30 ml PO DAILY PRN PRN Reason: Constipation Nystatin/Triamcinolone Acetonide (Nystatin/Triamcinolone Cream 15 Gm Tube) 1 appl TOPICAL BID [facility]; Protocol Last Admin: 11/30/21 20:11 Dose: Not Given Documented by: Trazodone HCl (Trazodone Hcl 100 Mg Tablet) 100 mg PO BEDTIME [facility] Last Admin: 11/30/21 20:06 Dose: 100 mg Documented by: Trazodone HCl (Trazodone Hcl 50 Mg Tablet) 50 mg PO BEDTIME PRN PRN Reason: Insomnia Last Admin: 11/25/21 23:38 Dose: 50 mg Documented by: Allergies Allergies Allergy/AdvReac Type Severity Reaction Status Date / Time house dust Allergy Intermediate watery eyes Verified 08/20/21 11:33 adhesive Allergy Unknown Unknown Verified 10/15/21 14:32 fenofibrate Allergy Unknown Unknown Verified 10/15/21 14:32 Sulfa (Sulfonamide Allergy Unknown unknown Verified 10/15/21 14:32 Antibiotics) tomato Allergy Unknown Unknown Verified 10/15/21 14:32 Yeast Allergy Unknown Unknown Verified 10/15/21 14:32 zolpidem [From Ambien] Allergy Unknown Unknown Verified 10/15/21 14:32 lactose AdvReac Unknown Unknown Verified 10/15/21 14:32 Assessment & Plan Assessment & Plan (1) PAF (paroxysmal atrial fibrillation): Status: Acute Code(s): I48.0 - Paroxysmal atrial fibrillation (2) Schizoaffective disorder, bipolar type: Status: Acute Code(s): F25.0 - Schizoaffective disorder, bipolar type Plan Middle-aged male with a long history of schizoaffective disorder bipolar type and recent worsening of his cognition in correlation with dementia. Readmitted for impulsive behavior. Plan 1. Continue Clozaril and other medications. 2. Gather collateral information. 3. Placement for SNF most likely. I spent __20____ minutes with the patient and/or on the patient floor today, greater than?50% of which was spent counseling/coordinating care. Reason for contiued inpatient stay Substantial Risk for: inability to function, rapid decompensation and med/psych decompensation
[2021-12-01] MEDS: cloZAPine 100 MG TABLET PO (16:14)
[2021-12-01] MEDS: HaloperidoL 1 MG TABLET 2 MG PO ×2 (16:14→21:11)
[2021-12-01] MEDS: carvediloL 12.5 MG TABLET PO (21:08)
[2021-12-01] MEDS: Artificial Tears 15 ML DROPS 2 DROP EYE-BOTH (21:08)
[2021-12-01] MEDS: Apixaban 5 MG TABLET PO (21:08)
[2021-12-01] MEDS: cloZAPine 100 MG TABLET 150 MG PO (21:10)
[2021-12-01] MEDS: lamoTRIgine 25 MG TABLET 37.5 MG PO (21:11)
[2021-12-01] MEDS: Nystatin/Triamcinolone Cream 15 GM TUBE 1 APPL TOPICAL (21:12)
[2021-12-01] MEDS: Lithium Carbonate ER 450 MG TABLET.ER PO (21:12)
[2021-12-01] MEDS: traZODone HCL 100 MG TABLET PO (21:13)
[2021-12-01 22:00] VITALS: BP 133/74; PULSE 72; RESP 18; TEMP 36.5; O2SAT 98
[2021-12-02 06:00] VITALS: BP 134/84; PULSE 73; RESP 18; TEMP 36.4; O2SAT 97
[2021-12-02] MEDS: Levothyroxine Sodium 175 MCG TABLET PO (06:47)
--- NOTE | 2021-12-02 07:59 | HO.PSYCHPN ---
Subjective Subjective Date of Service: 12/02/21 Reason For Visit: Psychosis Subjective Notes: Conditional Voluntary Interim History: The nursing staff reported the patient refused medication in the morning. He was very sick over the weekend with diarrhea nausea and vomiting. He has been med compliant with medications last night and he slept 7 hours. On interview the patient reports doing well. Mental Status Exam Mental Status Exam Patient Appearance: Appropriate Patient Orientation: Person Level of Consciousness: Awake Patient Behavior: Guarded and Cooperative Mood Description: Withdrawn Affect Description: Constricted Patient Cognition Impaired: Yes Ability to Follow Directions: Good Speech Pattern: Clear Hallucinations: None Delusions: Paranoid Ideation Thought Process: Evasive Thought Content: positive for [place] and positive for Poverty of Content Judgement: Fair Diagnostics Vital Signs (24Hr): Vital Signs - 24 hr 12/01/21 22:00 Temperature 97.7 F Pulse Rate 72 Respiratory Rate 18 Blood Pressure 133/74 Pulse Oximetry 98 BMI result Body Mass Index 30.7 Labs Results: 11/11/21 07:17 10/21/21 06:36 Labs: Laboratory Results - last 48 hr 11/29/21 11/29/21 11:57 18:07 Respiratory Panel [place] SEE NOTE Adenovirus (Rapid PCR) Not Detected B.pert (TEM-PCR) Not Detected B.parapertussis DNA PCR Not Detected C. pneumoniae DNA (PCR) Not Detected Coronavirus OC43 (PCR) Not Detected Coronavirus HKU1 (PCR) Not Detected Coronavirus 229E (PCR) Not Detected Coronavirus NL63 (PCR) Not Detected Human Metapneumovir PCR Not Detected Influenza A (RT-PCR) Not Detected Influenza B (RT-PCR) Not Detected M. pneumoniae (PCR) Not Detected Parainfluenza 1 (PCR) Not Detected Parainfluenza 2 (PCR) Not Detected Parainfluenza 3 (PCR) Not Detected Parainfluenza 4 (PCR) Not Detected RSV (PCR) Not Detected Entero/Rhino (PCR) Not Detected SARS-CoV-2 RNA (RT-PCR) Not Detected Ref Lab Test Result TNP Imaging Radiology Impressions: ITS Impressions Head CT 10/15/21 21:29 IMPRESSION: No acute intracranial pathology. Medications Medications Current Medications Acetaminophen (Acetaminophen 325 Mg Tablet) 650 mg PO Q6H PRN PRN Reason: Headache/Pain Mild Scale (1-3) Last Admin: 11/29/21 19:55 Dose: 650 mg Documented by: Al Hydroxide/Mg Hydroxide (Magnesium Hydrox/Alum Hydrox 30 Ml Oral.Susp) 30 ml PO Q6H PRN PRN Reason: Heartburn/Nausea Last Admin: 11/29/21 04:41 Dose: 30 ml Documented by: Apixaban (Apixaban 5 Mg Tablet) 5 mg PO BID [facility] Last Admin: 12/01/21 21:08 Dose: 5 mg Documented by: Artificial Tears (Artificial Tears 15 Ml Drops) 2 drop EYE-BOTH QID [facility] Last Admin: 12/01/21 21:08 Dose: 2 drop Documented by: Carvedilol (Carvedilol 12.5 Mg Tablet) 12.5 mg PO BID [facility]; Protocol Last Admin: 12/01/21 21:08 Dose: 12.5 mg Documented by: Clozapine (Clozapine 100 Mg Tablet) 150 mg PO BEDTIME [facility] Last Admin: 12/01/21 21:10 Dose: 150 mg Documented by: Clozapine (Clozapine 100 Mg Tablet) 100 mg PO BID@0900,1300 [facility] Last Admin: 12/01/21 16:14 Dose: 100 mg Documented by: Haloperidol (Haloperidol 1 Mg Tablet) 2 mg PO TID [facility] Last Admin: 12/01/21 21:11 Dose: 2 mg Documented by: Haloperidol Lactate (Haloperidol Lactate 10 Mg/5 Ml Oral.Conc) 5 mg PO TID PRN PRN Reason: Psychosis Last Admin: 10/27/21 18:52 Dose: 5 mg Documented by: Lamotrigine (Lamotrigine 25 Mg Tablet) 37.5 mg PO BID [facility] Last Admin: 12/01/21 21:11 Dose: 37.5 mg Documented by: Levothyroxine Sodium (Levothyroxine Sodium 175 Mcg Tablet) 175 mcg PO DAILY@0600 [facility] Last Admin: 12/02/21 06:47 Dose: 175 mcg Documented by: [place] Carbonate ([place] Carbonate Er 450 Mg Tablet.Er) 450 mg PO BID [facility] Last Admin: 12/01/21 21:12 Dose: 450 mg Documented by: Magnesium Hydroxide (Milk Of Magnesia 30 Ml Oral.Susp) 30 ml PO DAILY PRN PRN Reason: Constipation Nystatin/Triamcinolone Acetonide (Nystatin/Triamcinolone Cream 15 Gm Tube) 1 appl TOPICAL BID [facility]; Protocol Last Admin: 12/01/21 21:12 Dose: 1 appl Documented by: Trazodone HCl (Trazodone Hcl 100 Mg Tablet) 100 mg PO BEDTIME [facility] Last Admin: 12/01/21 21:13 Dose: 100 mg Documented by: Trazodone HCl (Trazodone Hcl 50 Mg Tablet) 50 mg PO BEDTIME PRN PRN Reason: Insomnia Last Admin: 11/25/21 23:38 Dose: 50 mg Documented by: Allergies Allergies Allergy/AdvReac Type Severity Reaction Status Date / Time house dust Allergy Intermediate watery eyes Verified 08/20/21 11:33 adhesive Allergy Unknown Unknown Verified 10/15/21 14:32 fenofibrate Allergy Unknown Unknown Verified 10/15/21 14:32 Sulfa (Sulfonamide Allergy Unknown unknown Verified 10/15/21 14:32 Antibiotics) tomato Allergy Unknown Unknown Verified 10/15/21 14:32 Yeast Allergy Unknown Unknown Verified 10/15/21 14:32 zolpidem [From Ambien] Allergy Unknown Unknown Verified 10/15/21 14:32 lactose AdvReac Unknown Unknown Verified 10/15/21 14:32 Assessment & Plan Assessment & Plan (1) PAF (paroxysmal atrial fibrillation): Status: Acute Code(s): I48.0 - Paroxysmal atrial fibrillation (2) Schizoaffective disorder, bipolar type: Status: Acute Code(s): F25.0 - Schizoaffective disorder, bipolar type Plan Middle-aged male with a long history of schizoaffective disorder bipolar type and recent worsening of his cognition in correlation with dementia. Readmitted for impulsive behavior. Plan 1. Continue Clozaril and other medications. 2. Gather collateral information. 3. Placement for SNF most likely for subacute rehabilitation. I spent ___20___ minutes with the patient and/or on the patient floor today, greater than?50% of which was spent counseling/coordinating care. Reason for contiued inpatient stay Substantial Risk for: inability to function, rapid decompensation and med/psych decompensation
[2021-12-02] MEDS: lamoTRIgine 25 MG TABLET 37.5 MG PO ×2 (09:05→21:04)
[2021-12-02] MEDS: HaloperidoL 1 MG TABLET 2 MG PO ×3 (09:05→21:05)
[2021-12-02] MEDS: cloZAPine 100 MG TABLET PO ×2 (09:05→16:02)
[2021-12-02] MEDS: carvediloL 12.5 MG TABLET PO ×2 (09:05→21:04)
[2021-12-02] MEDS: Nystatin/Triamcinolone Cream 15 GM TUBE 1 APPL TOPICAL ×2 (09:06→21:04)
[2021-12-02] MEDS: Lithium Carbonate ER 450 MG TABLET.ER PO ×2 (09:06→21:05)
[2021-12-02] MEDS: Artificial Tears 15 ML DROPS 2 DROP EYE-BOTH ×2 (09:06→21:08)
[2021-12-02] MEDS: Apixaban 5 MG TABLET PO ×2 (09:06→21:04)
[2021-12-02 21:00] VITALS: BP 117/56; PULSE 75; RESP 17; TEMP 36.9; O2SAT 96
[2021-12-02] MEDS: traZODone HCL 100 MG TABLET PO (21:04)
[2021-12-02] MEDS: cloZAPine 100 MG TABLET 150 MG PO (21:05)
[2021-12-03] MEDS: Levothyroxine Sodium 175 MCG TABLET PO (05:31)
[2021-12-03 08:00] VITALS: BP 133/70; PULSE 70; TEMP 36.1; O2SAT 98
[2021-12-03] MEDS: HaloperidoL 1 MG TABLET 2 MG PO ×3 (08:18→20:32)
[2021-12-03] MEDS: Lithium Carbonate ER 450 MG TABLET.ER PO ×2 (08:18→20:33)
[2021-12-03] MEDS: Apixaban 5 MG TABLET PO ×2 (08:18→20:33)
[2021-12-03] MEDS: carvediloL 12.5 MG TABLET PO ×2 (08:19→20:33)
[2021-12-03] MEDS: lamoTRIgine 25 MG TABLET 37.5 MG PO ×2 (08:19→20:32)
[2021-12-03] MEDS: Nystatin/Triamcinolone Cream 15 GM TUBE 1 APPL TOPICAL ×2 (08:19→20:32)
[2021-12-03] MEDS: cloZAPine 100 MG TABLET PO ×2 (08:19→14:47)
[2021-12-03] MEDS: Artificial Tears 15 ML DROPS 2 DROP EYE-BOTH ×3 (08:19→20:32)
[2021-12-03 09:21] LABS: Neut%MD 71.1 %; Neutrophils Absolute Auto 5.9 x10*3/uL (2.0-8.3); WBCANC 8.2 X10*3/uL
--- NOTE | 2021-12-03 11:13 | P.PNPSI_ITS ---
Subjective Subjective Date of Service: 12/03/21 Reason For Visit: Psychosis Subjective Notes: Conditional Voluntary Interim History: The nursing staff reports the patient has been cooperative and pleasant. He is physically much better and he is off contact precautions as per infection control. On interview, the patient denies new symptoms he is pleasant, cooperative and fully compliant with treatment. Mental Status Exam Mental Status Exam Patient Appearance: Appropriate Patient Orientation: Person and Situation Level of Consciousness: Awake Patient Behavior: Guarded, Passive and Suspicious Mood Description: Calm Affect Description: Constricted Patient Cognition Impaired: Yes Ability to Follow Directions: Good Speech Pattern: Clear Hallucinations: None Delusions: Paranoid Ideation Thought Process: Distracted and Evasive Thought Content: positive for [place] and positive for Poverty of Content Judgement: Fair Diagnostics Vital Signs (24Hr): Vital Signs - 24 hr 12/02/21 21:00 12/03/21 08:00 Temperature 98.5 F 96.9 F Pulse Rate 75 70 Respiratory Rate 17 Blood Pressure 117/56 L 133/70 Pulse Oximetry 96 98 BMI result Body Mass Index 30.7 Labs Results: 11/11/21 07:17 10/21/21 06:36 Labs: Laboratory Results - last 48 hr 11/29/21 12/03/21 11:57 09:14 Absolute Neuts (auto) 5.9 Ref Lab Test Result TNP Imaging Radiology Impressions: ITS Impressions Head CT 10/15/21 21:29 IMPRESSION: No acute intracranial pathology. Medications Medications Current Medications Acetaminophen (Acetaminophen 325 Mg Tablet) 650 mg PO Q6H PRN PRN Reason: Headache/Pain Mild Scale (1-3) Last Admin: 11/29/21 19:55 Dose: 650 mg Documented by: Al Hydroxide/Mg Hydroxide (Magnesium Hydrox/Alum Hydrox 30 Ml Oral.Susp) 30 ml PO Q6H PRN PRN Reason: Heartburn/Nausea Last Admin: 11/29/21 04:41 Dose: 30 ml Documented by: Apixaban (Apixaban 5 Mg Tablet) 5 mg PO BID [facility] Last Admin: 12/03/21 08:18 Dose: 5 mg Documented by: Artificial Tears (Artificial Tears 15 Ml Drops) 2 drop EYE-BOTH QID [facility] Last Admin: 12/03/21 08:19 Dose: 2 drop Documented by: Carvedilol (Carvedilol 12.5 Mg Tablet) 12.5 mg PO BID [facility]; Protocol Last Admin: 12/03/21 08:19 Dose: 12.5 mg Documented by: Clozapine (Clozapine 100 Mg Tablet) 150 mg PO BEDTIME [facility] Last Admin: 12/02/21 21:05 Dose: 150 mg Documented by: Clozapine (Clozapine 100 Mg Tablet) 100 mg PO BID@0900,1300 [facility] Last Admin: 12/03/21 08:19 Dose: 100 mg Documented by: Haloperidol (Haloperidol 1 Mg Tablet) 2 mg PO TID [facility] Last Admin: 12/03/21 08:18 Dose: 2 mg Documented by: Haloperidol Lactate (Haloperidol Lactate 10 Mg/5 Ml Oral.Conc) 5 mg PO TID PRN PRN Reason: Psychosis Last Admin: 10/27/21 18:52 Dose: 5 mg Documented by: Lamotrigine (Lamotrigine 25 Mg Tablet) 37.5 mg PO BID [facility] Last Admin: 12/03/21 08:19 Dose: 37.5 mg Documented by: Levothyroxine Sodium (Levothyroxine Sodium 175 Mcg Tablet) 175 mcg PO DAILY@0600 [facility] Last Admin: 12/03/21 05:31 Dose: 175 mcg Documented by: [place] Carbonate ([place] Carbonate Er 450 Mg Tablet.Er) 450 mg PO BID [facility] Last Admin: 12/03/21 08:18 Dose: 450 mg Documented by: Magnesium Hydroxide (Milk Of Magnesia 30 Ml Oral.Susp) 30 ml PO DAILY PRN PRN Reason: Constipation Nystatin/Triamcinolone Acetonide (Nystatin/Triamcinolone Cream 15 Gm Tube) 1 appl TOPICAL BID [facility]; Protocol Last Admin: 12/03/21 08:19 Dose: 1 appl Documented by: Trazodone HCl (Trazodone Hcl 100 Mg Tablet) 100 mg PO BEDTIME [facility] Last Admin: 12/02/21 21:04 Dose: 100 mg Documented by: Trazodone HCl (Trazodone Hcl 50 Mg Tablet) 50 mg PO BEDTIME PRN PRN Reason: Insomnia Last Admin: 11/25/21 23:38 Dose: 50 mg Documented by: Allergies Allergies Allergy/AdvReac Type Severity Reaction Status Date / Time house dust Allergy Intermediate watery eyes Verified 08/20/21 11:33 adhesive Allergy Unknown Unknown Verified 10/15/21 14:32 fenofibrate Allergy Unknown Unknown Verified 10/15/21 14:32 Sulfa (Sulfonamide Allergy Unknown unknown Verified 10/15/21 14:32 Antibiotics) tomato Allergy Unknown Unknown Verified 10/15/21 14:32 Yeast Allergy Unknown Unknown Verified 10/15/21 14:32 zolpidem [From Ambien] Allergy Unknown Unknown Verified 10/15/21 14:32 lactose AdvReac Unknown Unknown Verified 10/15/21 14:32 Assessment & Plan Assessment & Plan (1) PAF (paroxysmal atrial fibrillation): Status: Acute Code(s): I48.0 - Paroxysmal atrial fibrillation (2) Schizoaffective disorder, bipolar type: Status: Acute Code(s): F25.0 - Schizoaffective disorder, bipolar type Plan Middle-aged male with a long history of schizoaffective disorder bipolar type and recent worsening of his cognition in correlation with dementia. Readmitted for impulsive behavior. Plan 1. Continue Clozaril and other medications. 2. Gather collateral information. 3. Placement for SNF most likely for subacute rehabilitation. I spent ___20___ minutes with the patient and/or on the patient floor today, greater than?50% of which was spent counseling/coordinating care. Reason for contiued inpatient stay Substantial Risk for: inability to function, rapid decompensation and med/psych decompensation
[2021-12-03] MEDS: Magnesium Hydrox/Alum Hydrox 30 ML ORAL.SUSP PO (18:29)
[2021-12-03 20:27] VITALS: BP 112/57; PULSE 75; RESP 18; TEMP 36.4; O2SAT 97
[2021-12-03] MEDS: traZODone HCL 100 MG TABLET PO (20:32)
[2021-12-03] MEDS: cloZAPine 100 MG TABLET 150 MG PO (20:33)
[2021-12-04] MEDS: Levothyroxine Sodium 175 MCG TABLET PO (05:19)
--- NOTE | 2021-12-04 07:56 | P.PNPSI_ITS ---
Subjective Subjective Date of Service: 12/04/21 Reason For Visit: Psychosis Subjective Notes: Conditional Voluntary Interim History: The nursing staff reported that the patient did not have nausea or vomiting no evidence of diarrhea. He is off infection control precautions since yesterday. He has been pleasant and cooperative. Since admission, the patient has never been violent or aggressive, historically, as per crisis report he could be verbally loud when he is very psychotic but he has never assaulted a peer or staff. On interview the patient denies new symptoms, content with current treatment. He is waiting for placement. Mental Status Exam Mental Status Exam Patient Appearance: Appropriate Patient Orientation: Person and Situation Level of Consciousness: Awake Patient Behavior: Cooperative Mood Description: Calm Affect Description: Constricted Speech Pattern: Clear Hallucinations: None Delusions: Paranoid Ideation Thought Process: Evasive Thought Content: positive for [place], positive for [place] and positive for Poverty of Content Judgement: Fair Diagnostics Vital Signs (24Hr): Vital Signs - 24 hr 12/03/21 08:00 12/03/21 20:27 Temperature 96.9 F 97.5 F Pulse Rate 70 75 Respiratory Rate 18 Blood Pressure 133/70 112/57 L Pulse Oximetry 98 97 BMI result Body Mass Index 30.7 Labs Results: 11/11/21 07:17 10/21/21 06:36 Labs: Laboratory Results - last 48 hr 12/03/21 09:14 Absolute Neuts (auto) 5.9 Imaging Radiology Impressions: ITS Impressions Head CT 10/15/21 21:29 IMPRESSION: No acute intracranial pathology. Medications Medications Current Medications Acetaminophen (Acetaminophen 325 Mg Tablet) 650 mg PO Q6H PRN PRN Reason: Headache/Pain Mild Scale (1-3) Last Admin: 11/29/21 19:55 Dose: 650 mg Documented by: [place] Hydroxide/Mg Hydroxide (Magnesium Hydrox/Alum Hydrox 30 Ml Oral.Susp) 30 ml PO Q6H PRN PRN Reason: Heartburn/Nausea Last Admin: 12/03/21 18:29 Dose: 30 ml Documented by: Apixaban (Apixaban 5 Mg Tablet) 5 mg PO BID [facility] Last Admin: 12/03/21 20:33 Dose: 5 mg Documented by: Artificial Tears (Artificial Tears 15 Ml Drops) 2 drop EYE-BOTH QID [facility] Last Admin: 12/03/21 20:32 Dose: 2 drop Documented by: Carvedilol (Carvedilol 12.5 Mg Tablet) 12.5 mg PO BID [facility]; Protocol Last Admin: 12/03/21 20:33 Dose: 12.5 mg Documented by: Clozapine (Clozapine 100 Mg Tablet) 150 mg PO BEDTIME [facility] Last Admin: 12/03/21 20:33 Dose: 150 mg Documented by: Clozapine (Clozapine 100 Mg Tablet) 100 mg PO BID@0900,1300 [facility] Last Admin: 12/03/21 14:47 Dose: 100 mg Documented by: Haloperidol (Haloperidol 1 Mg Tablet) 2 mg PO TID [facility] Last Admin: 12/03/21 20:32 Dose: 2 mg Documented by: Haloperidol Lactate (Haloperidol Lactate 10 Mg/5 Ml Oral.Conc) 5 mg PO TID PRN PRN Reason: Psychosis Last Admin: 10/27/21 18:52 Dose: 5 mg Documented by: Lamotrigine (Lamotrigine 25 Mg Tablet) 37.5 mg PO BID [facility] Last Admin: 12/03/21 20:32 Dose: 37.5 mg Documented by: Levothyroxine Sodium (Levothyroxine Sodium 175 Mcg Tablet) 175 mcg PO DA JOAN@0600 [facility] Last Admin: 12/04/21 05:19 Dose: 175 mcg Documented by: [place] Carbonate ([place] Carbonate Er 450 Mg Tablet.Er) 450 mg PO BID [facility] Last Admin: 12/03/21 20:33 Dose: 450 mg Documented by: Magnesium Hydroxide (Milk Of Magnesia 30 Ml Oral.Susp) 30 ml PO DAILY PRN PRN Reason: Constipation Nystatin/Triamcinolone Acetonide (Nystatin/Triamcinolone Cream 15 Gm Tube) 1 appl TOPICAL BID [facility]; Protocol Last Admin: 12/03/21 20:32 Dose: 1 appl Documented by: Trazodone HCl (Trazodone Hcl 100 Mg Tablet) 100 mg PO BEDTIME [facility] Last Admin: 12/03/21 20:32 Dose: 100 mg Documented by: Trazodone HCl (Trazodone Hcl 50 Mg Tablet) 50 mg PO BEDTIME PRN PRN Reason: Insomnia Last Admin: 11/25/21 23:38 Dose: 50 mg Documented by: Allergies Allergies Allergy/AdvReac Type Severity Reaction Status Date / Time house dust Allergy Intermediate watery eyes Verified 08/20/21 11:33 adhesive Allergy Unknown Unknown Verified 10/15/21 14:32 fenofibrate Allergy Unknown Unknown Verified 10/15/21 14:32 Sulfa (Sulfonamide Allergy Unknown unknown Verified 10/15/21 14:32 Antibiotics) tomato Allergy Unknown Unknown Verified 10/15/21 14:32 Yeast Allergy Unknown Unknown Verified 10/15/21 14:32 zolpidem [From Ambien] Allergy Unknown Unknown Verified 10/15/21 14:32 lactose AdvReac Unknown Unknown Verified 10/15/21 14:32 Assessment & Plan Assessment & Plan (1) PAF (paroxysmal atrial fibrillation): Status: Acute Code(s): I48.0 - Paroxysmal atrial fibrillation (2) Schizoaffective disorder, bipolar type: Status: Acute Code(s): F25.0 - Schizoaffective disorder, bipolar type Plan Middle-aged male with a long history of schizoaffective disorder bipolar type and recent worsening of his cognition in correlation with dementia. Readmitted for impulsive behavior. Plan 1. Continue Clozaril and other medications. 2. Gather collateral information. 3. Placement for SNF most likely for subacute rehabilitation. I spent __20____ minutes with the patient and/or on the patient floor today, greater than?50% of which was spent counseling/coordinating care. Reason for contiued inpatient stay Substantial Risk for: inability to function, rapid decompensation and med/psych decompensation
[2021-12-04] MEDS: lamoTRIgine 25 MG TABLET 37.5 MG PO ×2 (08:18→20:20)
[2021-12-04] MEDS: HaloperidoL 1 MG TABLET 2 MG PO ×3 (08:19→20:20)
[2021-12-04] MEDS: carvediloL 12.5 MG TABLET PO ×2 (08:19→20:18)
[2021-12-04] MEDS: Lithium Carbonate ER 450 MG TABLET.ER PO ×2 (08:20→20:21)
[2021-12-04] MEDS: cloZAPine 100 MG TABLET PO ×2 (08:20→12:14)
[2021-12-04] MEDS: Apixaban 5 MG TABLET PO ×2 (08:20→20:18)
[2021-12-04 08:23] VITALS: BP 124/66; PULSE 84; RESP 18; TEMP 36.4; O2SAT 96
[2021-12-04] MEDS: Nystatin/Triamcinolone Cream 15 GM TUBE 1 APPL TOPICAL ×2 (09:51→20:21)
[2021-12-04] MEDS: Artificial Tears 15 ML DROPS 2 DROP EYE-BOTH ×4 (09:51→20:18)
[2021-12-04 13:37] VITALS: BMI 30.2
[2021-12-04 19:51] VITALS: BP 154/74; PULSE 76; RESP 18; TEMP 36.6; O2SAT 96
[2021-12-04] MEDS: cloZAPine 100 MG TABLET 150 MG PO (20:18)
[2021-12-04] MEDS: traZODone HCL 100 MG TABLET PO (20:21)
[2021-12-05 06:00] VITALS: BP 125/76; PULSE 70; RESP 16; TEMP 36.5; O2SAT 96
[2021-12-05] MEDS: Levothyroxine Sodium 175 MCG TABLET PO (06:14)
[2021-12-05] MEDS: lamoTRIgine 25 MG TABLET 37.5 MG PO ×2 (07:55→20:32)
[2021-12-05] MEDS: Lithium Carbonate ER 450 MG TABLET.ER PO ×2 (07:58→20:33)
[2021-12-05] MEDS: cloZAPine 100 MG TABLET PO ×2 (07:58→14:21)
[2021-12-05] MEDS: carvediloL 12.5 MG TABLET PO ×2 (07:59→20:33)
[2021-12-05] MEDS: Apixaban 5 MG TABLET PO ×2 (07:59→20:33)
[2021-12-05] MEDS: HaloperidoL 1 MG TABLET 2 MG PO ×3 (07:59→20:32)
[2021-12-05] MEDS: Artificial Tears 15 ML DROPS 2 DROP EYE-BOTH ×3 (08:00→20:35)
[2021-12-05] MEDS: Nystatin/Triamcinolone Cream 15 GM TUBE 1 APPL TOPICAL ×2 (08:01→20:35)
--- NOTE | 2021-12-05 13:59 | P.PNPSI_ITS ---
Subjective Subjective Date of Service: 12/05/21 Reason For Visit: Psychosis Subjective Notes: Conditional Voluntary Interim History: The nursing staff reports the patient is pleasant and cooperative, cheerful at times attending to groups. The social media marketer reported that she has already applied to several facilities. On interview the patient denies new symptoms he is pleasant and cooperative, easily redirectable. Mental Status Exam Mental Status Exam Patient Appearance: Well Grooomed Patient Orientation: Person and Situation Level of Consciousness: Awake Patient Behavior: Cooperative Mood Description: Withdrawn Affect Description: Constricted Patient Cognition Impaired: No Ability to Follow Directions: Good Speech Pattern: Clear Hallucinations: None Delusions: Not Present Thought Process: Distracted and Evasive Thought Content: positive for Circumstantial and positive for Poverty of Content Judgement: Fair Diagnostics Vital Signs (24Hr): Vital Signs - 24 hr 12/04/21 19:51 12/05/21 06:00 Temperature 98 F 97.7 F Pulse Rate 76 70 Respiratory Rate 18 16 Blood Pressure 154/74 H 125/76 Pulse Oximetry 96 96 BMI result Body Mass Index 30.2 Labs Results: 11/11/21 07:17 10/21/21 06:36 Imaging Radiology Impressions: ITS Impressions Head CT 10/15/21 21:29 IMPRESSION: No acute intracranial pathology. Medications Medications Current Medications Acetaminophen (Acetaminophen 325 Mg Tablet) 650 mg PO Q6H PRN PRN Reason: Headache/Pain Mild Scale (1-3) Last Admin: 11/29/21 19:55 Dose: 650 mg Documented by: Al Hydroxide/Mg Hydroxide (Magnesium Hydrox/Alum Hydrox 30 Ml Oral.Susp) 30 ml PO Q6H PRN PRN Reason: Heartburn/Nausea Last Admin: 12/03/21 18:29 Dose: 30 ml Documented by: Apixaban (Apixaban 5 Mg Tablet) 5 mg PO BID [facility] Last Admin: 12/05/21 07:59 Dose: 5 mg Documented by: Artificial Tears (Artificial Tears 15 Ml Drops) 2 drop EYE-BOTH QID [facility] Last Admin: 12/05/21 08:00 Dose: 2 drop Documented by: Carvedilol (Carvedilol 12.5 Mg Tablet) 12.5 mg PO BID [facility]; Protocol Last Admin: 12/05/21 07:59 Dose: 12.5 mg Documented by: Clozapine (Clozapine 100 Mg Tablet) 150 mg PO BEDTIME [facility] Last Admin: 12/04/21 20:18 Dose: 150 mg Documented by: Clozapine (Clozapine 100 Mg Tablet) 100 mg PO BID@0900,1300 [facility] Last Admin: 12/05/21 07:58 Dose: 100 mg Documented by: Haloperidol (Haloperidol 1 Mg Tablet) 2 mg PO TID [facility] Last Admin: 12/05/21 07:59 Dose: 2 mg Documented by: Haloperidol Lactate (Haloperidol Lactate 10 Mg/5 Ml Oral.Conc) 5 mg PO TID PRN PRN Reason: Psychosis Last Admin: 10/27/21 18:52 Dose: 5 mg Documented by: Lamotrigine (Lamotrigine 25 Mg Tablet) 37.5 mg PO BID [facility] Last Admin: 12/05/21 07:55 Dose: 37.5 mg Documented by: Levothyroxine Sodium (Levothyroxine Sodium 175 Mcg Tablet) 175 mcg PO DAILY@0600 [facility] Last Admin: 12/05/21 06:14 Dose: 175 mcg Documented by: [place] Carbonate (Lester Carbonate Er 450 Mg Tablet.Er) 450 mg PO BID [facility] Last Admin: 12/05/21 07:58 Dose: 450 mg Documented by: Magnesium Hydroxide (Milk Of Magnesia 30 Ml Oral.Susp) 30 ml PO DAILY PRN PRN Reason: Constipation Nystatin/Triamcinolone Acetonide (Nystatin/Triamcinolone Cream 15 Gm Tube) 1 appl TOPICAL BID [facility]; Protocol Last Admin: 12/05/21 08:01 Dose: 1 appl Documented by: Trazodone HCl (Trazodone Hcl 100 Mg Tablet) 100 mg PO BEDTIME [facility] Last Admin: 12/04/21 20:21 Dose: 100 mg Documented by: Trazodone HCl (Trazodone Hcl 50 Mg Tablet) 50 mg PO BEDTIME PRN PRN Reason: Insomnia Last Admin: 11/25/21 23:38 Dose: 50 mg Documented by: Allergies Allergies Allergy/AdvReac Type Severity Reaction Status Date / Time house dust Allergy Intermediate watery eyes Verified 08/20/21 11:33 adhesive Allergy Unknown Unknown Verified 10/15/21 14:32 fenofibrate Allergy Unknown Unknown Verified 10/15/21 14:32 Sulfa (Sulfonamide Allergy Unknown unknown Verified 10/15/21 14:32 Antibiotics) tomato Allergy Unknown Unknown Verified 10/15/21 14:32 Yeast Allergy Unknown Unknown Verified 10/15/21 14:32 zolpidem [From Ambien] Allergy Unknown Unknown Verified 10/15/21 14:32 lactose AdvReac Unknown Unknown Verified 10/15/21 14:32 Assessment & Plan Assessment & Plan (1) PAF (paroxysmal atrial fibrillation): Status: Acute Code(s): I48.0 - Paroxysmal atrial fibrillation (2) Schizoaffective disorder, bipolar type: Status: Acute Code(s): F25.0 - Schizoaffective disorder, bipolar type Plan Middle-aged male with a long history of schizoaffective disorder bipolar type and recent worsening of his cognition in correlation with dementia. Readmitted for impulsive behavior. Plan 1. Continue Clozaril and other medications. 2. Gather collateral information. 3. Placement for SNF most likely for subacute rehabilitation. I spent ___20___ minutes with the patient and/or on the patient floor today, greater than?50% of which was spent counseling/coordinating care. Reason for contiued inpatient stay Substantial Risk for: inability to function, rapid decompensation and med/psych decompensation
[2021-12-05 18:00] VITALS: BP 134/73; PULSE 66; RESP 16; TEMP 36.9; O2SAT 97
[2021-12-05] MEDS: cloZAPine 100 MG TABLET 150 MG PO (20:33)
[2021-12-05] MEDS: traZODone HCL 100 MG TABLET PO (20:34)
[2021-12-06] MEDS: Artificial Tears 15 ML DROPS 2 DROP EYE-BOTH ×4 (00:43→19:53)
[2021-12-06] MEDS: traZODone HCL 50 MG TABLET PO (00:43)
[2021-12-06] MEDS: Levothyroxine Sodium 175 MCG TABLET PO (06:22)
[2021-12-06 08:20] VITALS: BP 112/56; PULSE 71; RESP 14; TEMP 36.8; O2SAT 95
[2021-12-06] MEDS: carvediloL 12.5 MG TABLET PO ×2 (08:28→19:52)
[2021-12-06] MEDS: HaloperidoL 1 MG TABLET 2 MG PO ×3 (08:28→19:49)
[2021-12-06] MEDS: lamoTRIgine 25 MG TABLET 37.5 MG PO ×2 (08:28→19:48)
[2021-12-06] MEDS: Apixaban 5 MG TABLET PO ×2 (08:28→19:49)
[2021-12-06] MEDS: Nystatin/Triamcinolone Cream 15 GM TUBE 1 APPL TOPICAL ×2 (08:28→19:53)
[2021-12-06] MEDS: Lithium Carbonate ER 450 MG TABLET.ER PO ×2 (08:29→19:50)
[2021-12-06] MEDS: cloZAPine 100 MG TABLET PO ×2 (08:29→15:18)
--- NOTE | 2021-12-06 12:57 | P.PNPSI_ITS ---
Subjective Subjective Date of Service: 12/06/21 Reason For Visit: Psychosis Subjective Notes: Conditional Voluntary Interim History: Pt in bed, sits up to talk to this grant writer. alert, speech garbled and unintelligible. He is pleasant and cooperative. , cheerful at times attending to groups. The director of social services reported that she has already applied to several facilities. Medication Compliance: Yes Side effects from medications: No Attending Groups: Yes Review of Systems Acute medical concerns: No Medical Review of Systems: unchanged Review of Systems Review of Systems unremarkable Yes Unobtainable due to mental status Mental Status Exam Mental Status Exam Narrative: Patient Appearance:?Disheveled Patient Orientation:?Person and Situation Level of Consciousness:?Awake Patient Behavior:?Cooperative Mood Description:?Appropriate Affect Description:?Constricted Patient Cognition Impaired:?Yes Ability to Follow Directions:?Good Speech Pattern:?Clear Hallucinations:?None Delusions:?Paranoid Ideation Thought Process:?Distracted and Linear Thought Content:?positive for Poverty of Content, positive for Loose Associations and positive for Tangential Judgment:?Fair Patient Appearance: Well Grooomed Patient Orientation: Person and Situation Level of Consciousness: Awake Patient Behavior: Cooperative Mood Description: Withdrawn Affect Description: Constricted Patient Cognition Impaired: No Ability to Follow Directions: Good Speech Pattern: Clear Memory Description: Intact Diagnostics Vital Signs (24Hr): Vital Signs - 24 hr 12/05/21 18:00 12/06/21 08:20 Temperature 98.5 F 98.2 F Pulse Rate 66 71 Respiratory Rate 16 14 Blood Pressure 134/73 112/56 L Pulse Oximetry 97 95 BMI result Body Mass Index 30.2 Labs Results: 11/11/21 07:17 10/21/21 06:36 Imaging Radiology Impressions: ITS Impressions Head CT 10/15/21 21:29 IMPRESSION: No acute intracranial pathology. Medications Medications Current Medications Acetaminophen (Acetaminophen 325 Mg Tablet) 650 mg PO Q6H PRN PRN Reason: Headache/Pain Mild Scale (1-3) Last Admin: 11/29/21 19:55 Dose: 650 mg Documented by: Al Hydroxide/Mg Hydroxide (Magnesium Hydrox/Alum Hydrox 30 Ml Oral.Susp) 30 ml PO Q6H PRN PRN Reason: Heartburn/Nausea Last Admin: 12/03/21 18:29 Dose: 30 ml Documented by: Apixaban (Apixaban 5 Mg Tablet) 5 mg PO BID [facility] Last Admin: 12/06/21 08:28 Dose: 5 mg Documented by: Artificial Tears (Artificial Tears 15 Ml Drops) 2 drop EYE-BOTH QID [facility] Last Admin: 12/06/21 08:28 Dose: 2 drop Documented by: Carvedilol (Carvedilol 12.5 Mg Tablet) 12.5 mg PO BID [facility]; Protocol Last Admin: 12/06/21 08:28 Dose: 12.5 mg Documented by: Clozapine (Clozapine 100 Mg Tablet) 150 mg PO BEDTIME [facility] Last Admin: 12/05/21 20:33 Dose: 150 mg Documented by: Clozapine (Clozapine 100 Mg Tablet) 100 mg PO BID@0900,1300 [facility] Last Admin: 12/06/21 08:29 Dose: 100 mg Documented by: Haloperidol (Haloperidol 1 Mg Tablet) 2 mg PO TID [facility] Last Admin: 12/06/21 08:28 Dose: 2 mg Documented by: Haloperidol Lactate (Haloperidol Lactate 10 Mg/5 Ml Oral.Conc) 5 mg PO TID PRN PRN Reason: Psychosis Last Admin: 10/27/21 18:52 Dose: 5 mg Documented by: Lamotrigine (Lamotrigine 25 Mg Tablet) 37.5 mg PO BID [facility] Last Admin: 12/06/21 08:28 Dose: 37.5 mg Documented by: Levothyroxine Sodium (Levothyroxine Sodium 175 Mcg Tablet) 175 mcg PO DAILY@0600 [facility] Last Admin: 12/06/21 06:22 Dose: 175 mcg Documented by: [place] Carbonate ([place] Carbonate Er 450 Mg Tablet.Er) 450 mg PO BID [facility] Last Admin: 12/06/21 08:29 Dose: 450 mg Documented by: Magnesium Hydroxide (Milk Of Magnesia 30 Ml Oral.Susp) 30 ml PO DAILY PRN PRN Reason: Constipation Nystatin/Triamcinolone Acetonide (Nystatin/Triamcinolone Cream 15 Gm Tube) 1 appl TOPICAL BID [facility]; Protocol Last Admin: 12/06/21 08:28 Dose: 1 appl Documented by: Trazodone HCl (Trazodone Hcl 100 Mg Tablet) 100 mg PO BEDTIME [facility] Last Admin: 12/05/21 20:34 Dose: 100 mg Documented by: Trazodone HCl (Trazodone Hcl 50 Mg Tablet) 50 mg PO BEDTIME PRN PRN Reason: Insomnia Last Admin: 12/06/21 00:43 Dose: 50 mg Documented by: Allergies Allergies Allergy/AdvReac Type Severity Reaction Status Date / Time house dust Allergy Intermediate watery eyes Verified 08/20/21 11:33 adhesive Allergy Unknown Unknown Verified 10/15/21 14:32 fenofibrate Allergy Unknown Unknown Verified 10/15/21 14:32 Sulfa (Sulfonamide Allergy Unknown unknown Verified 10/15/21 14:32 Antibiotics) tomato Allergy Unknown Unknown Verified 10/15/21 14:32 Yeast Allergy Unknown Unknown Verified 10/15/21 14:32 zolpidem [From Ambien] Allergy Unknown Unknown Verified 10/15/21 14:32 lactose AdvReac Unknown Unknown Verified 10/15/21 14:32 Assessment & Plan Assessment & Plan (1) PAF (paroxysmal atrial fibrillation): Status: Acute Code(s): I48.0 - Paroxysmal atrial fibrillation (2) Schizoaffective disorder, bipolar type: Status: Acute Code(s): F25.0 - Schizoaffective disorder, bipolar type Plan Middle-aged male with a long history of schizoaffective disorder bipolar type and recent worsening of his cognition in correlation with dementia. Readmitted for impulsive behavior. Plan 1. Continue Clozaril and other medications. 2. Gather collateral information. 3. Placement for SNF most likely for subacute rehabilitation. 12/06/21- continue current treatment plan I spent ____15__ minutes with the patient and/or on the patient floor today, greater than?50% of which was spent counseling/coordinating care. Reason for contiued inpatient stay Substantial Risk for: harm to self, inability to function and rapid decompensation
[2021-12-06 18:00] VITALS: BP 123/63; PULSE 70; RESP 16; TEMP 36.7; O2SAT 95
[2021-12-06] MEDS: traZODone HCL 100 MG TABLET PO (19:49)
[2021-12-06] MEDS: cloZAPine 100 MG TABLET 150 MG PO (19:50)
[2021-12-07] MEDS: Levothyroxine Sodium 175 MCG TABLET PO (06:16)
[2021-12-07 08:00] VITALS: BP 138/75; PULSE 75; RESP 14; TEMP 37; O2SAT 95
[2021-12-07] MEDS: Lithium Carbonate ER 450 MG TABLET.ER PO ×2 (08:43→19:16)
[2021-12-07] MEDS: cloZAPine 100 MG TABLET PO ×2 (08:43→12:41)
[2021-12-07] MEDS: Apixaban 5 MG TABLET PO ×2 (08:43→19:16)
[2021-12-07] MEDS: HaloperidoL 1 MG TABLET 2 MG PO ×3 (08:43→19:16)
[2021-12-07] MEDS: Nystatin/Triamcinolone Cream 15 GM TUBE 1 APPL TOPICAL ×2 (08:43→19:20)
[2021-12-07] MEDS: carvediloL 12.5 MG TABLET PO ×2 (08:43→19:20)
[2021-12-07] MEDS: lamoTRIgine 25 MG TABLET 37.5 MG PO ×2 (08:43→19:17)
[2021-12-07] MEDS: Artificial Tears 15 ML DROPS 2 DROP EYE-BOTH ×4 (08:44→19:20)
--- NOTE | 2021-12-07 15:03 | HO.PSYCHPN ---
Subjective Subjective Date of Service: 12/07/21 Reason For Visit: Psychosis Subjective Notes: Conditional Voluntary Interim History: Pt out of bed, in hallway, gait balanced. polite, cooperative, alert, brighter affect, speech garbled; attending to groups. Medication Compliance: Yes Side effects from medications: No Attending Groups: Yes Review of Systems Acute medical concerns: No Medical Review of Systems: unchanged Review of Systems Review of Systems unremarkable Yes Unobtainable due to mental status Mental Status Exam Mental Status Exam Narrative: Patient Appearance:?neatly dressed, hygiene and grooming fair Patient Orientation:?Person and Situation Level of Consciousness:?Awake Patient Behavior:?Cooperative Mood Description:?Appropriate Affect Description:?Constricted Patient Cognition Impaired:?Yes Ability to Follow Directions:?Good Speech Pattern:?garbled Hallucinations:?None Delusions:?Paranoid Ideation Thought Process:?Distracted and Linear Thought Content:?positive for Poverty of Content, positive for Loose Associations and positive for Tangential Judgment:?Fair Patient Appearance: Well Grooomed Patient Orientation: Person and Situation Level of Consciousness: Awake Patient Behavior: Cooperative Mood Description: Withdrawn Affect Description: Constricted Patient Cognition Impaired: No Ability to Follow Directions: Good Speech Pattern: Clear Memory Description: Intact Diagnostics Vital Signs (24Hr): Vital Signs - 24 hr 12/06/21 18:00 12/07/21 08:00 Temperature 98.1 F 98.6 F Pulse Rate 70 75 Respiratory Rate 16 14 Blood Pressure 123/63 138/75 Pulse Oximetry 95 95 BMI result Body Mass Index 30.2 Labs Results: 11/11/21 07:17 10/21/21 06:36 Imaging Radiology Impressions: ITS Impressions Head CT 10/15/21 21:29 IMPRESSION: No acute intracranial pathology. Medications Medications Current Medications Acetaminophen (Acetaminophen 325 Mg Tablet) 650 mg PO Q6H PRN PRN Reason: Headache/Pain Mild Scale (1-3) Last Admin: 11/29/21 19:55 Dose: 650 mg Documented by: Al Hydroxide/Mg Hydroxide (Magnesium Hydrox/Alum Hydrox 30 Ml Oral.Susp) 30 ml PO Q6H PRN PRN Reason: Heartburn/Nausea Last Admin: 12/03/21 18:29 Dose: 30 ml Documented by: Apixaban (Apixaban 5 Mg Tablet) 5 mg PO BID [facility] Last Admin: 12/07/21 08:43 Dose: 5 mg Documented by: Artificial Tears (Artificial Tears 15 Ml Drops) 2 drop EYE-BOTH QID [facility] Last Admin: 12/07/21 12:41 Dose: 2 drop Documented by: Carvedilol (Carvedilol 12.5 Mg Tablet) 12.5 mg PO BID [facility]; Protocol Last Admin: 12/07/21 08:43 Dose: 12.5 mg Documented by: Clozapine (Clozapine 100 Mg Tablet) 150 mg PO BEDTIME [facility] Last Admin: 12/06/21 19:50 Dose: 150 mg Documented by: Clozapine (Clozapine 100 Mg Tablet) 100 mg PO BID@0900,1300 [facility] Last Admin: 12/07/21 12:41 Dose: 100 mg Documented by: Haloperidol (Haloperidol 1 Mg Tablet) 2 mg PO TID [facility] Last Admin: 12/07/21 08:43 Dose: 2 mg Documented by: Haloperidol Lactate (Haloperidol Lactate 10 Mg/5 Ml Oral.Conc) 5 mg PO TID PRN PRN Reason: Psychosis Last Admin: 10/27/21 18:52 Dose: 5 mg Documented by: Lamotrigine (Lamotrigine 25 Mg Tablet) 37.5 mg PO BID [facility] Last Admin: 12/07/21 08:43 Dose: 37.5 mg Documented by: Levothyroxine Sodium (Levothyroxine Sodium 175 Mcg Tablet) 175 mcg PO DAILY@0600 [facility] Last Admin: 12/07/21 06:16 Dose: 175 mcg Documented by: [place] Carbonate ([place] Carbonate Er 450 Mg Tablet.Er) 450 mg PO BID [facility] Last Admin: 12/07/21 08:43 Dose: 450 mg Documented by: Magnesium Hydroxide (Milk Of Magnesia 30 Ml Oral.Susp) 30 ml PO DAILY PRN PRN Reason: Constipation Nystatin/Triamcinolone Acetonide (Nystatin/Triamcinolone Cream 15 Gm Tube) 1 appl TOPICAL BID [facility]; Protocol Last Admin: 12/07/21 08:43 Dose: 1 appl Documented by: Trazodone HCl (Trazodone Hcl 100 Mg Tablet) 100 mg PO BEDTIME [facility] Last Admin: 12/06/21 19:49 Dose: 100 mg Documented by: Trazodone HCl (Trazodone Hcl 50 Mg Tablet) 50 mg PO BEDTIME PRN PRN Reason: Insomnia Last Admin: 12/06/21 00:43 Dose: 50 mg Documented by: Allergies Allergies Allergy/AdvReac Type Severity Reaction Status Date / Time house dust Allergy Intermediate watery eyes Verified 08/20/21 11:33 adhesive Allergy Unknown Unknown Verified 10/15/21 14:32 fenofibrate Allergy Unknown Unknown Verified 10/15/21 14:32 Sulfa (Sulfonamide Allergy Unknown unknown Verified 10/15/21 14:32 Antibiotics) tomato Allergy Unknown Unknown Verified 10/15/21 14:32 Yeast Allergy Unknown Unknown Verified 10/15/21 14:32 zolpidem [From Ambien] Allergy Unknown Unknown Verified 10/15/21 14:32 lactose AdvReac Unknown Unknown Verified 10/15/21 14:32 Assessment & Plan Assessment & Plan (1) PAF (paroxysmal atrial fibrillation): Status: Acute Code(s): I48.0 - Paroxysmal atrial fibrillation (2) Schizoaffective disorder, bipolar type: Status: Acute Code(s): F25.0 - Schizoaffective disorder, bipolar type Plan Middle-aged male with a long history of schizoaffective disorder bipolar type and recent worsening of his cognition in correlation with dementia. Readmitted for impulsive behavior. Plan 1. Continue Clozaril and other medications. 2. Gather collateral information. 3. Placement for SNF most likely for subacute rehabilitation. 12/06/21- continue current treatment plan 12/07/21 continue with current treatment plan I spent _15 minutes with the patient and/or on the patient floor today, greater than?50% of which was spent counseling/coordinating care. Reason for contiued inpatient stay Substantial Risk for: harm to self, inability to function and med/psych decompensation
[2021-12-07 16:47] VITALS: BP 136/63; PULSE 72; RESP 16; TEMP 36.9; O2SAT 94
[2021-12-07] MEDS: cloZAPine 100 MG TABLET 150 MG PO (19:13)
[2021-12-07] MEDS: traZODone HCL 100 MG TABLET PO (19:16)
[2021-12-08 06:00] VITALS: BP 159/82; PULSE 72; RESP 18; TEMP 36.7; O2SAT 97
[2021-12-08] MEDS: Apixaban 5 MG TABLET PO ×2 (08:15→21:01)
[2021-12-08] MEDS: lamoTRIgine 25 MG TABLET 37.5 MG PO ×2 (08:15→21:01)
[2021-12-08] MEDS: HaloperidoL 1 MG TABLET 2 MG PO ×3 (08:15→21:00)
[2021-12-08] MEDS: Lithium Carbonate ER 450 MG TABLET.ER PO ×2 (08:15→21:00)
[2021-12-08] MEDS: cloZAPine 100 MG TABLET PO ×2 (08:15→14:24)
[2021-12-08] MEDS: carvediloL 12.5 MG TABLET PO ×2 (08:16→21:01)
[2021-12-08] MEDS: Levothyroxine Sodium 175 MCG TABLET PO (08:16)
[2021-12-08] MEDS: Nystatin/Triamcinolone Cream 15 GM TUBE 1 APPL TOPICAL ×2 (08:19→21:00)
[2021-12-08] MEDS: Artificial Tears 15 ML DROPS 2 DROP EYE-BOTH ×3 (08:19→21:00)
--- NOTE | 2021-12-08 15:03 | P.PNPSI_ITS ---
Subjective Subjective Date of Service: 12/08/21 Reason For Visit: Psychosis Subjective Notes: Conditional Voluntary Interim History: The nursing staff reported the patient has been pleasant, cooperative, fully compliant with treatment but seclusive at times. The staff reported that he has attendant to a few groups. On interview the patient reported that he wants to get discharged he is bored in the unit, no active avery or psychosis. Waiting for placement Mental Status Exam Mental Status Exam Patient Appearance: Well Grooomed Patient Orientation: Person and Situation Level of Consciousness: Awake Patient Behavior: Cooperative Mood Description: Calm Affect Description: Constricted Ability to Follow Directions: Good Speech Pattern: Impoverished Hallucinations: None Delusions: Not Present Thought Process: Linear Thought Content: positive for Circumstantial Judgement: Fair Diagnostics Vital Signs (24Hr): Vital Signs - 24 hr 12/07/21 16:47 12/08/21 06:00 Temperature 98.5 F 98.0 F Pulse Rate 72 72 Respiratory Rate 16 18 Blood Pressure 136/63 159/82 H Pulse Oximetry 94 97 BMI result Body Mass Index 30.2 Labs Results: 11/11/21 07:17 10/21/21 06:36 Imaging Radiology Impressions: ITS Impressions Head CT 10/15/21 21:29 IMPRESSION: No acute intracranial pathology. Medications Medications Current Medications Acetaminophen (Acetaminophen 325 Mg Tablet) 650 mg PO Q6H PRN PRN Reason: Headache/Pain Mild Scale (1-3) Last Admin: 11/29/21 19:55 Dose: 650 mg Documented by: Al Hydroxide/Mg Hydroxide (Magnesium Hydrox/Alum Hydrox 30 Ml Oral.Susp) 30 ml PO Q6H PRN PRN Reason: Heartburn/Nausea Last Admin: 12/03/21 18:29 Dose: 30 ml Documented by: Apixaban (Apixaban 5 Mg Tablet) 5 mg PO BID [facility] Last Admin: 12/08/21 08:15 Dose: 5 mg Documented by: Artificial Tears (Artificial Tears 15 Ml Drops) 2 drop EYE-BOTH QID [facility] Last Admin: 12/08/21 14:25 Dose: 2 drop Documented by: Carvedilol (Carvedilol 12.5 Mg Tablet) 12.5 mg PO BID [facility]; Protocol Last Admin: 12/08/21 08:16 Dose: 12.5 mg Documented by: Clozapine (Clozapine 100 Mg Tablet) 150 mg PO BEDTIME [facility] Last Admin: 12/07/21 19:13 Dose: 150 mg Documented by: Clozapine (Clozapine 100 Mg Tablet) 100 mg PO BID@0900,1300 [facility] Last Admin: 12/08/21 14:24 Dose: 100 mg Documented by: Haloperidol (Haloperidol 1 Mg Tablet) 2 mg PO TID [facility] Last Admin: 12/08/21 14:23 Dose: 2 mg Documented by: Haloperidol Lactate (Haloperidol Lactate 10 Mg/5 Ml Oral.Conc) 5 mg PO TID PRN PRN Reason: Psychosis Last Admin: 10/27/21 18:52 Dose: 5 mg Documented by: Lamotrigine (Lamotrigine 25 Mg Tablet) 37.5 mg PO BID [facility] Last Admin: 12/08/21 08:15 Dose: 37.5 mg Documented by: Levothyroxine Sodium (Levothyroxine Sodium 175 Mcg Tablet) 175 mcg PO DAILY@0600 [facility] Last Admin: 12/08/21 08:16 Dose: 175 mcg Documented by: [place] Carbonate ([place] Carbonate Er 450 Mg Tablet.Er) 450 mg PO BID [facility] Last Admin: 12/08/21 08:15 Dose: 450 mg Documented by: Magnesium Hydroxide (Milk Of Magnesia 30 Ml Oral.Susp) 30 ml PO DAILY PRN PRN Reason: Constipation Nystatin/Triamcinolone Acetonide (Nystatin/Triamcinolone Cream 15 Gm Tube) 1 appl TOPICAL BID [facility]; Protocol Last Admin: 12/08/21 08:19 Dose: 1 appl Documented by: Trazodone HCl (Trazodone Hcl 100 Mg Tablet) 100 mg PO BEDTIME [facility] Last Admin: 12/07/21 19:16 Dose: 100 mg Documented by: Trazodone HCl (Trazodone Hcl 50 Mg Tablet) 50 mg PO BEDTIME PRN PRN Reason: Insomnia Last Admin: 12/06/21 00:43 Dose: 50 mg Documented by: Allergies Allergies Allergy/AdvReac Type Severity Reaction Status Date / Time house dust Allergy Intermediate watery eyes Verified 08/20/21 11:33 adhesive Allergy Unknown Unknown Verified 10/15/21 14:32 fenofibrate Allergy Unknown Unknown Verified 10/15/21 14:32 Sulfa (Sulfonamide Allergy Unknown unknown Verified 10/15/21 14:32 Antibiotics) tomato Allergy Unknown Unknown Verified 10/15/21 14:32 Yeast Allergy Unknown Unknown Verified 10/15/21 14:32 zolpidem [From Ambien] Allergy Unknown Unknown Verified 10/15/21 14:32 lactose AdvReac Unknown Unknown Verified 10/15/21 14:32 Assessment & Plan Assessment & Plan (1) PAF (paroxysmal atrial fibrillation): Status: Acute Code(s): I48.0 - Paroxysmal atrial fibrillation (2) Schizoaffective disorder, bipolar type: Status: Acute Code(s): F25.0 - Schizoaffective disorder, bipolar type Plan Middle-aged male with a long history of schizoaffective disorder bipolar type and recent worsening of his cognition in correlation with dementia. Readmitted for impulsive behavior. Plan 1. Continue Clozaril and other medications. 2. Gather collateral information. 3. Placement for SNF most likely for subacute rehabilitation. I spent ___20___ minutes with the patient and/or on the patient floor today, gr eater than?50% of which was spent counseling/coordinating care. Reason for contiued inpatient stay Substantial Risk for: inability to function, rapid decompensation and med/psych decompensation
[2021-12-08 20:50] VITALS: BP 129/67; PULSE 68; RESP 19; TEMP 36.5; O2SAT 97
[2021-12-08] MEDS: traZODone HCL 100 MG TABLET PO (21:01)
[2021-12-08] MEDS: cloZAPine 100 MG TABLET 150 MG PO (21:01)
[2021-12-09] MEDS: Levothyroxine Sodium 175 MCG TABLET PO (05:43)
[2021-12-09 06:00] VITALS: BP 132/68; PULSE 63; TEMP 36.6; O2SAT 95
[2021-12-09] MEDS: carvediloL 12.5 MG TABLET PO ×2 (07:59→20:12)
[2021-12-09] MEDS: Lithium Carbonate ER 450 MG TABLET.ER PO ×2 (07:59→20:15)
[2021-12-09] MEDS: Apixaban 5 MG TABLET PO ×2 (07:59→20:12)
[2021-12-09] MEDS: lamoTRIgine 25 MG TABLET 37.5 MG PO ×2 (07:59→20:14)
[2021-12-09] MEDS: cloZAPine 100 MG TABLET PO ×2 (08:00→13:46)
[2021-12-09] MEDS: HaloperidoL 1 MG TABLET 2 MG PO ×3 (08:00→20:14)
--- NOTE | 2021-12-09 12:53 | P.PNPSI_ITS ---
Subjective Subjective Date of Service: 12/09/21 Reason For Visit: Psychosis Subjective Notes: Conditional Voluntary Interim History: The nursing staff reports the patient has been pleasant and cooperative, confused at times but easily redirectable. Today [facility] staff came to visit him and they were planning for discharge. On interview the patient denies new symptoms he wants to be discharged as soon as possible. He is waiting for placement. Mental Status Exam Mental Status Exam Patient Appearance: Well Grooomed Patient Orientation: Person and Situation Level of Consciousness: Awake Patient Behavior: Cooperative Mood Description: Constricted Affect Description: Calm Patient Cognition Impaired: No Ability to Follow Directions: Good Speech Pattern: Clear Memory Description: Intact Hallucinations: None Delusions: Not Present Thought Process: Linear Thought Content: positive for Circumstantial Judgement: Fair Diagnostics Vital Signs (24Hr): Vital Signs - 24 hr 12/08/21 20:50 12/09/21 06:00 Temperature 97.7 F 97.8 F Pulse Rate 68 63 Respiratory Rate 19 Blood Pressure 129/67 132/68 Pulse Oximetry 97 95 BMI result Body Mass Index 30.2 Labs Results: 11/11/21 07:17 10/21/21 06:36 Imaging Radiology Impressions: ITS Impressions Head CT 10/15/21 21:29 IMPRESSION: No acute intracranial pathology. Medications Medications Current Medications Acetaminophen (Acetaminophen 325 Mg Tablet) 650 mg PO Q6H PRN PRN Reason: Headache/Pain Mild Scale (1-3) Last Admin: 11/29/21 19:55 Dose: 650 mg Documented by: Al Hydroxide/Mg Hydroxide (Magnesium Hydrox/Alum Hydrox 30 Ml Oral.Susp) 30 ml PO Q6H PRN PRN Reason: Heartburn/Nausea Last Admin: 12/03/21 18:29 Dose: 30 ml Documented by: Apixaban (Apixaban 5 Mg Tablet) 5 mg PO BID [facility] Last Admin: 12/09/21 07:59 Dose: 5 mg Documented by: Artificial Tears (Artificial Tears 15 Ml Drops) 2 drop EYE-BOTH QID [facility] Last Admin: 12/09/21 08:18 Dose: Not Given Documented by: Carvedilol (Carvedilol 12.5 Mg Tablet) 12.5 mg PO BID [facility]; Protocol Last Admin: 12/09/21 07:59 Dose: 12.5 mg Documented by: Clozapine (Clozapine 100 Mg Tablet) 150 mg PO BEDTIME [facility] Last Admin: 12/08/21 21:01 Dose: 150 mg Documented by: Clozapine (Clozapine 100 Mg Tablet) 100 mg PO BID@0900,1300 [facility] Last Admin: 12/09/21 08:00 Dose: 100 mg Documented by: Haloperidol (Haloperidol 1 Mg Tablet) 2 mg PO TID [facility] Last Admin: 12/09/21 08:00 Dose: 2 mg Documented by: Haloperidol Lactate (Haloperidol Lactate 10 Mg/5 Ml Oral.Conc) 5 mg PO TID PRN PRN Reason: Psychosis Last Admin: 10/27/21 18:52 Dose: 5 mg Documented by: Lamotrigine (Lamotrigine 25 Mg Tablet) 37.5 mg PO BID [facility] Last Admin: 12/09/21 07:59 Dose: 37.5 mg Documented by: Levothyroxine Sodium (Levothyroxine Sodium 175 Mcg Tablet) 175 mcg PO DAILY@0600 [facility] Last Admin: 12/09/21 05:43 Dose: 175 mcg Documented by: [place] Carbonate ([place] Carbonate Er 450 Mg Tablet.Er) 450 mg PO BID [facility] Last Admin: 12/09/21 07:59 Dose: 450 mg Documented by: Magnesium Hydroxide (Milk Of Magnesia 30 Ml Oral.Susp) 30 ml PO DAILY PRN PRN Reason: Constipation Nystatin/Triamcinolone Acetonide (Nystatin/Triamcinolone Cream 15 Gm Tube) 1 appl TOPICAL BID [facility]; Protocol Last Admin: 12/09/21 08:18 Dose: Not Given Documented by: Trazodone HCl (Trazodone Hcl 100 Mg Tablet) 100 mg PO BEDTIME [facility] Last Admin: 12/08/21 21:01 Dose: 100 mg Documented by: Trazodone HCl (Trazodone Hcl 50 Mg Tablet) 50 mg PO BEDTIME PRN PRN Reason: Insomnia Last Admin: 12/06/21 00:43 Dose: 50 mg Documented by: Allergies Allergies Allergy/AdvReac Type Severity Reaction Status Date / Time house dust Allergy Intermediate watery eyes Verified 08/20/21 11:33 adhesive Allergy Unknown Unknown Verified 10/15/21 14:32 fenofibrate Allergy Unknown Unknown Verified 10/15/21 14:32 Sulfa (Sulfonamide Allergy Unknown unknown Verified 10/15/21 14:32 Antibiotics) tomato Allergy Unknown Unknown Verified 10/15/21 14:32 Yeast Allergy Unknown Unknown Verified 10/15/21 14:32 zolpidem [From Ambien] Allergy Unknown Unknown Verified 10/15/21 14:32 lactose AdvReac Unknown Unknown Verified 10/15/21 14:32 Assessment & Plan Assessment & Plan (1) PAF (paroxysmal atrial fibrillation): Status: Acute Code(s): I48.0 - Paroxysmal atrial fibrillation (2) Schizoaffective disorder, bipolar type: Status: Acute Code(s): F25.0 - Schizoaffective disorder, bipolar type Plan Middle-aged male with a long history of schizoaffective disorder bipolar type and recent worsening of his cognition in correlation with dementia. Readmitted for impulsive behavior. Plan 1. Continue Clozaril and other medications. 2. Gather collateral information. 3. Placement for SNF most likely for subacute rehabilitation. I spent __20____ minutes with the patient and/or on the patient floor today, greater than?50% of which was spent counseling/coordinating care. Reason for contiued inpatient stay Substantial Risk for: inability to function, rapid decompensation and med/psych decompensation
[2021-12-09 20:00] VITALS: BP 134/80; PULSE 70; RESP 18; TEMP 37.2; O2SAT 97
[2021-12-09] MEDS: cloZAPine 100 MG TABLET 150 MG PO (20:13)
[2021-12-09] MEDS: traZODone HCL 100 MG TABLET PO (20:16)
[2021-12-09] MEDS: Nystatin/Triamcinolone Cream 15 GM TUBE 1 APPL TOPICAL (20:21)
[2021-12-09] MEDS: Artificial Tears 15 ML DROPS 2 DROP EYE-BOTH (20:21)
[2021-12-10 06:00] VITALS: BP 137/76; PULSE 64; RESP 18; TEMP 36.9; O2SAT 97
[2021-12-10] MEDS: Levothyroxine Sodium 175 MCG TABLET PO (06:06)
[2021-12-10 07:58] LABS: Neut%MD 78.8 %; Neutrophils Absolute Auto 9.6 x10*3/uL (2.0-8.3); WBCANC 12.2 X10*3/uL
[2021-12-10] MEDS: Artificial Tears 15 ML DROPS 2 DROP EYE-BOTH ×4 (08:01→20:29)
[2021-12-10] MEDS: carvediloL 12.5 MG TABLET PO ×2 (08:01→20:18)
[2021-12-10] MEDS: Apixaban 5 MG TABLET PO ×2 (08:01→20:17)
[2021-12-10] MEDS: Nystatin/Triamcinolone Cream 15 GM TUBE 1 APPL TOPICAL ×2 (08:01→20:29)
[2021-12-10] MEDS: HaloperidoL 1 MG TABLET 2 MG PO ×3 (08:02→20:19)
[2021-12-10] MEDS: lamoTRIgine 25 MG TABLET 37.5 MG PO ×2 (08:02→20:25)
[2021-12-10] MEDS: cloZAPine 100 MG TABLET PO ×2 (08:02→14:05)
[2021-12-10] MEDS: Lithium Carbonate ER 450 MG TABLET.ER PO ×2 (08:02→20:18)
--- NOTE | 2021-12-10 09:25 | HO.PSYCHPN ---
Subjective Subjective Date of Service: 12/10/21 Reason For Visit: Psychosis Subjective Notes: Conditional Voluntary Interim History: The nursing staff reported the patient has been pleasant cooperative and attending to groups. Yesterday [facility] came and assessed him and we are waiting for discharge. On interview the patient is aware that his discharge he soon and he feels bored in the unit. No safety concerns. Mental Status Exam Mental Status Exam Patient Appearance: Well Grooomed Patient Orientation: Person and Situation Level of Consciousness: Awake Patient Behavior: Guarded and Cooperative Mood Description: Withdrawn Affect Description: Constricted Patient Cognition Impaired: Yes Ability to Follow Directions: Good Speech Pattern: Clear Hallucinations: None Delusions: Paranoid Ideation Thought Process: Distracted Thought Content: positive for Circumstantial Judgement: Fair Diagnostics Vital Signs (24Hr): Vital Signs - 24 hr 12/09/21 20:00 Temperature 98.9 F Pulse Rate 70 Respiratory Rate 18 Blood Pressure 134/80 Pulse Oximetry 97 BMI result Body Mass Index 30.2 Labs Results: 11/11/21 07:17 10/21/21 06:36 Labs: Laboratory Results - last 48 hr 12/10/21 07:51 Absolute Neuts (auto) 9.6 H Imaging Radiology Impressions: ITS Impressions Head CT 10/15/21 21:29 IMPRESSION: No acute intracranial pathology. Medications Medications Current Medications Acetaminophen (Acetaminophen 325 Mg Tablet) 650 mg PO Q6H PRN PRN Reason: Headache/Pain Mild Scale (1-3) Last Admin: 11/29/21 19:55 Dose: 650 mg Documented by: Al Hydroxide/Mg Hydroxide (Magnesium Hydrox/Alum Hydrox 30 Ml Oral.Susp) 30 ml PO Q6H PRN PRN Reason: Heartburn/Nausea Last Admin: 12/03/21 18:29 Dose: 30 ml Documented by: Apixaban (Apixaban 5 Mg Tablet) 5 mg PO BID [facility] Last Admin: 12/10/21 08:01 Dose: 5 mg Documented by: Artificial Tears (Artificial Tears 15 Ml Drops) 2 drop EYE-BOTH QID [facility] Last Admin: 12/10/21 08:01 Dose: 2 drop Documented by: Carvedilol (Carvedilol 12.5 Mg Tablet) 12.5 mg PO BID [facility]; Protocol Last Admin: 12/10/21 08:01 Dose: 12.5 mg Documented by: Clozapine (Clozapine 100 Mg Tablet) 150 mg PO BEDTIME [facility] Last Admin: 12/09/21 20:13 Dose: 150 mg Documented by: Clozapine (Clozapine 100 Mg Tablet) 100 mg PO BID@0900,1300 [facility] Last Admin: 12/10/21 08:02 Dose: 100 mg Documented by: Haloperidol (Haloperidol 1 Mg Tablet) 2 mg PO TID [facility] Last Admin: 12/10/21 08:02 Dose: 2 mg Documented by: Haloperidol Lactate (Haloperidol Lactate 10 Mg/5 Ml Oral.Conc) 5 mg PO TID PRN PRN Reason: Psychosis Last Admin: 10/27/21 18:52 Dose: 5 mg Documented by: Lamotrigine (Lamotrigine 25 Mg Tablet) 37.5 mg PO BID [facility] Last Admin: 12/10/21 08:02 Dose: 37.5 mg Documented by: Levothyroxine Sodium (Levothyroxine Sodium 175 Mcg Tablet) 175 mcg PO DAILY@0600 [facility] Last Admin: 12/10/21 06:06 Dose: 175 mcg Documented by: [place] Carbonate ([place] Carbonate Er 450 Mg Tablet.Er) 450 mg PO BID [facility] Last Admin: 12/10/21 08:02 Dose: 450 mg Documented by: Magnesium Hydroxide (Milk Of Magnesia 30 Ml Oral.Susp) 30 ml PO DAILY PRN PRN Reason: Constipation Nystatin/Triamcinolone Acetonide (Nystatin/Triamcinolone Cream 15 Gm Tube) 1 appl TOPICAL BID [facility]; Protocol Last Admin: 12/10/21 08:01 Dose: 1 appl Documented by: Trazodone HCl (Trazodone Hcl 100 Mg Tablet) 100 mg PO BEDTIME [facility] Last Admin: 12/09/21 20:16 Dose: 100 mg Documented by: Trazodone HCl (Trazodone Hcl 50 Mg Tablet) 50 mg PO BEDTIME PRN PRN Reason: Insomnia Last Admin: 12/06/21 00:43 Dose: 50 mg Documented by: Allergies Allergies Allergy/AdvReac Type Severity Reaction Status Date / Time house dust Allergy Intermediate watery eyes Verified 08/20/21 11:33 adhesive Allergy Unknown Unknown Verified 10/15/21 14:32 fenofibrate Allergy Unknown Unknown Verified 10/15/21 14:32 Sulfa (Sulfonamide Allergy Unknown unknown Verified 10/15/21 14:32 Antibiotics) tomato Allergy Unknown Unknown Verified 10/15/21 14:32 Yeast Allergy Unknown Unknown Verified 10/15/21 14:32 zolpidem [From Ambien] Allergy Unknown Unknown Verified 10/15/21 14:32 lactose AdvReac Unknown Unknown Verified 10/15/21 14:32 Assessment & Plan Assessment & Plan (1) PAF (paroxysmal atrial fibrillation): Status: Acute Code(s): I48.0 - Paroxysmal atrial fibrillation (2) Schizoaffective disorder, bipolar type: Status: Acute Code(s): F25.0 - Schizoaffective disorder, bipolar type Plan Middle-aged male with a long history of schizoaffective disorder bipolar type and recent worsening of his cognition in correlation with dementia. Readmitted for impulsive behavior. Plan 1. Continue Clozaril and other medications. 2. Gather collateral information. 3. Placement for SNF most likely for subacute rehabilitation. I spent __20____ minutes with the patient and/or on the patient floor today, greater than?50% of which was spent counseling/coordinating care. Reason for contiued inpatient stay Substantial Risk for: inability to function, rapid decompensation and med/psych decompensation
[2021-12-10 16:47] VITALS: BP 116/58; PULSE 64; RESP 18; TEMP 36.4; O2SAT 96
[2021-12-10] MEDS: cloZAPine 100 MG TABLET 150 MG PO (20:21)
[2021-12-10] MEDS: traZODone HCL 100 MG TABLET PO (20:24)
[2021-12-11] MEDS: Levothyroxine Sodium 175 MCG TABLET PO (05:19)
--- NOTE | 2021-12-11 07:30 | P.DS_ITS ---
DS: Providers Provider Date of Service: 12/11/21 Date of admission: 10/16/21 02:12 Date of discharge: 12/11/21 Primary care physician: Unknown Physician Consults: 10/22/21 06:58 Consult to Hospitalist Routine Consulting Provider: Hospitalist Reason For Exam: Clearance for ECT, hx of isis Attending physician on discharge: Martin Marquis DS: Diagnosis Discharge Diagnosis (1) Schizoaffective disorder, bipolar type: Status: Acute DS: Medications Discharge Medications Home Medications: Home Medications Medication Instructions Recorded Confirmed apixaban 5 mg tablet (Eliquis) 1 tab PO BID 08/25/21 10/15/21 carvedilol 12.5 mg tablet 1 tab PO BID 08/25/21 10/15/21 clozapine 50 mg tablet 50 mg PO BID@0900,1300 08/25/21 10/15/21 levothyroxine 175 mcg tablet 1 tab PO DAILY 08/25/21 10/15/21 trazodone 50 mg tablet 50 mg PO BEDTIME PRN 08/25/21 10/15/21 clozapine 25 mg tablet 25 mg PO BID@0900,1300 10/15/21 10/15/21 clozapine 50 mg tablet 150 mg PO BEDTIME 10/15/21 10/15/21 lithium carbonate 450 mg 1 tab PO BID 10/15/21 10/15/21 tablet,extended release lorazepam 0.5 mg tablet 0.5 mg PO BID PRN 10/15/21 10/15/21 trazodone 50 mg tablet 2 tab PO BEDTIME 10/15/21 10/15/21 trazodone 50 mg tablet 25 mg PO Q12H PRN 10/15/21 10/15/21 Previous Rx's Medication Instructions Recorded nystatin-triamcinolone 100,000 1 appl TOPICAL BID #15 g 09/25/21 unit/g-0.1 % topical cream polyvinyl alcohol 1.4 % eye drops 2 drp OPHTHALMIC (EYE) QID #15 ml 09/25/21 (Artificial Tears (polyvinyl alcohol)) Mental Status Exam Mental Status Exam Patient Appearance: Well Grooomed Patient Orientation: Person and Situation Level of Consciousness: Awake Patient Behavior: Cooperative Mood Description: Constricted Affect Description: Calm Patient Cognition Impaired: Yes Ability to Follow Directions: Good Speech Pattern: Clear Hallucinations: None Delusions: Not Present Thought Process: Distracted and Evasive Thought Content: positive for [place] and positive for Poverty of Content Judgement: Fair Data Data Completed and Pending Completed studies during hospitalization [Text1]: 12/10/21 07:51 Absolute Neuts (auto) 9.6 H Imaging Diagnostic Imaging Impressions Head CT 10/15/21 21:29 IMPRESSION: No acute intracranial pathology. DS: Summary Hospital Course Hospital Course: The patient was initially admitted for exacerbation of psychosis in the assisted living facility. Please see the HPI of the admission note for further details. The patient was restarted on his Clozaril and he tolerated fairly well. Even though, the 1st week of treatment the patient had labral mood, auditory hallucinations and paranoia. We had several family meetings and apparently the patient, historically, when he decompensates it is mostly due to noncompliance of medications. We monitored his lithium level and CBC and we increase slightly Clozaril Up to 100 mg p.o. b.i.d. and 150 mg p.o. q.h.s.. The patient did not presented any side effects, he tolerated very well and he is ANC was within normal limits The patient improved and he was clear that he had a cognitive impairment. We monitored that with a Bowlegs test that he scored very low. At this moment, it was clear that the patient cannot go back to his assisted living facility so referral to different other facilities were done. The patient came back to his baseline, he was pleasant, and cooperative. While he was in the unit waiting for placement, he had norovirus and he was sick for a couple of days. Even though that he was physically sick, his mood and psych osis Did not worsen. It resolved without any complications. Placement was found and the patient was assessed by [facility]. Since there were no safety concerns discharge planning was discussed. Time spent discussing smoking cessation with patient: 3 to 10 minutes Status at Discharge Functional status at discharge: independent ambulation Overall status at discharge: patient is back to baseline Time Spent with Patient Time attestation: Total time spent providing and/or coordinating discharge services: Time spent: Less than 30 minutes Discharge Plan Discharge Patient Disposition: Xfer [facility] Discharge Diagnosis: Schizoaffective disorder Referrals: Dr. Brittany Nicolas (psychiatrists) [Other] - 1 Week Physician,Unknown J [Primary Care Provider] - 1 Week Discharge Medications: New clozapine 100 mg Tablet 100 mg PO BID@0900,1300 30 Days Qty: 60 0RF lamotrigine 25 mg Tablet 37.5 mg PO BID 30 Days Qty: 90 0RF trazodone 100 mg Tablet 100 mg PO BEDTIME 30 Days Qty: 30 0RF Continued levothyroxine 175 mcg tablet 1 tab PO DAILY 30 Days Qty: 30 0RF carvedilol 12.5 mg tablet 1 tab PO BID 30 Days Qty: 60 0RF trazodone 50 mg tablet 50 mg PO BEDTIME PRN (Reason: Insomnia) 30 Days Qty: 30 0RF polyvinyl alcohol [Artificial Tears (polyvin alc)] 1.4 % Drops 2 drp ophthalmic (eye) QID Qty: 15 0RF lithium carbonate 450 mg tablet extended release 1 tab PO BID 30 Days Qty: 60 0RF nystatin-triamcinolone 100,000-0.1 unit/g-% Cream 1 appl topical BID Qty: 15 0RF Protocol: Apply to: Apply to: face clozapine 50 mg tablet 150 mg PO BEDTIME 30 Days Qty: 90 0RF Changed Eliquis 5 mg tablet 5 mg PO BID 30 Days Qty: 60 0RF Discontinued clozapine 50 mg tablet 50 mg PO BID@0900,1300 0RF trazodone 50 mg tablet 2 tab PO BEDTIME 0RF lorazepam 0.5 mg Tablet 0.5 mg PO BID PRN (Reason: Anxiety) 0RF clozapine 25 mg tablet 25 mg PO BID@0900,1300 0RF trazodone 50 mg Tablet 25 mg PO Q12H PRN (Reason: Agitation) 0RF Discharge Orders: Discharge Order (Routine); Ordered 12/11/21 Ordered By: Martin Marquis Diet: advance to usual diet Activity on Discharge: As tolerated Stand Alone Forms: Patient Portal Discharge page Care Plan Goals: care plan goals achieved on this admission Health Concerns: continue care with primary care physician as an outpatient Plan of Treatment: continue medication management by outpatient psychiatrist Assessment: the patient is a middle-aged male with a long history of schizoaffective disorder who was readmitted for exacerbation of psychosis, mood lability and inability to take care of himself. He was restarted on Clozaril and titrated up to a therapeutic level with resolution of psychosis and irritability. Since there were no safety concerns he was transfer to a long- term facility.
[2021-12-11 08:01] VITALS: BP 124/64; PULSE 60; RESP 14; TEMP 37; O2SAT 94
[2021-12-11] MEDS: cloZAPine 100 MG TABLET PO (08:02)
[2021-12-11] MEDS: Artificial Tears 15 ML DROPS 2 DROP EYE-BOTH (08:02)
[2021-12-11] MEDS: Lithium Carbonate ER 450 MG TABLET.ER PO (08:02)
[2021-12-11] MEDS: lamoTRIgine 25 MG TABLET 37.5 MG PO (08:02)
[2021-12-11] MEDS: HaloperidoL 1 MG TABLET 2 MG PO (08:02)
[2021-12-11] MEDS: Apixaban 5 MG TABLET PO (08:03)
[2021-12-11] MEDS: carvediloL 12.5 MG TABLET PO (08:03)
[2021-12-11] MEDS: Nystatin/Triamcinolone Cream 15 GM TUBE 1 APPL TOPICAL (08:05)
--- NOTE | 2021-12-11 10:19 | PC.NURSE ---
Patient is pleasant and cooperative upon approach. Patient is being discharged to a facility and is aware of discharge. Patient reports looking forward to being discharged today. Patient denies SI/HI/AH/VH. Patient reports feeling safe. Patient denies physical complaints.
== END 2021-12-11 11:31 | DRG 885 ==
LOC: HO.ED 21:54 → HO.PGERI 10-16 02:19
PROVIDERS: Emergency Medicine Emergency Medical Services; Nurse Practitioner Acute Care; Psychiatry & Neurology Psychiatry; Student in an Organized Health Care Education/Training Program; Admitting Provider Psychiatry & Neurology Psychiatry; Emergency Provider Student in an Organized Health Care Education/Training Program; Visit Provider Psychiatry & Neurology Psychiatry
DX: F25.0 Schizoaffective disorder, bipolar type (principal); I48.0 Paroxysmal atrial fibrillation; Z20.822 Contact with and (suspected) exposure to COVID-19; Z88.2 Allergy status to sulfonamides; Z79.890 Hormone replacement therapy; Z79.899 Other long term (current) drug therapy
CPT/HCPCS: 36415; 70450; 80048; 80053; 80076; 80143; 80159; 80178; 80179; 80307; 81003; 82077; 83036; 84443; 84484; 85025; 85048; 87633; 87635; 92610; 93005; 99285; Q0163

== ENCOUNTER 2022-11-25 10:49 | Inpatient (IN) | payer MEDICARE, MEDICAID, SELFPAY ==
--- NOTE | 2022-11-25 | ECG_ITS ---
Test Reason : antipsych meds Blood Pressure : / mmHG Vent. Rate : 081 BPM Atrial Rate : 081 BPM P-R Int : 214 ms QRS Dur : 164 ms QT Int : 420 ms P-R-T Axes : 067 -43 038 degrees QTc Int : 487 ms Sinus rhythm with 1st degree A-V block Left axis deviation Right bundle branch block Abnormal ECG When compared with ECG of 18-NOV-2021 13:03, No significant change was found Referred By: Generic ED Physician Electronically Signed By:FERNANDO VELEZ
[2022-11-25 10:59] VITALS: BP 135/87; BP 142/92; PULSE 80; PULSE 87; RESP 16; TEMP 36.7; O2SAT 94; O2SAT 96; BMI 33.2
--- NOTE | 2022-11-25 11:06 | ED.GENADULT ---
HPI - General Adult General Chief complaint: Psychiatric Symptoms <JUNE Walker - Last Filed: 11/25/22 17:29> Stated complaint: Psychiatric episode per EMS <JUNE Walker - Last Filed: 11/25/22 17:29> Time Seen by Provider: 11/25/22 11:04 <JUNE Walker - Last Filed: 11/25/22 17:29> Source: patient and EMS <JUNE Walker - Last Filed: 11/25/22 17:29> Mode of arrival: EMS <JUNE Walker - Last Filed: 11/25/22 17:29> Limitations: altered mental status <JUNE Walker - Last Filed: 11/25/22 17:29> History of Present Illness HPI narrative: Patient is a 67 year old assigned male at with a history of schizoaffective disorder and dementia presenting to the emergency department today with worsening AMS. Patient is a from [facility] and is currently being treated for a UTI. Patient's records state that the patient is on day 4 of Macrobid for this infection. Patient has disorganized thinking and is unable to appropriately answer ROS questions. <JUNE Walker - Last Filed: 11/25/22 17:29> Onset (ago): day(s) <JUNE Walker - Last Filed: 11/25/22 17:29> Related Data Home medications: Home Medications Medication Instructions Recorded Confirmed acetaminophen 650 mg tablet 650 mg PO Q6H PRN Pain 11/25/22 11/25/22 apixaban 5 mg tablet 5 mg PO BID 11/25/22 11/25/22 carvedilol 12.5 mg tablet 12.5 mg PO BID 11/25/22 11/25/22 clotrimazole 1 % topical cream 1 appl topical BID 11/25/22 11/25/22 clozapine 375 mg PO BEDTIME 11/25/22 11/25/22 clozapine 50 mg tablet (Clozaril) 50 mg PO QAM 11/25/22 11/25/22 gabapentin 100 mg capsule 100 mg PO Q8H PRN Anxiety 11/25/22 11/25/22 gabapentin 100 mg capsule 100 mg PO TID 11/25/22 11/25/22 lamotrigine 25 mg tablet (Lamictal) 50 mg PO BID 11/25/22 11/25/22 levothyroxine 175 mcg tablet 175 mcg PO DAILY 11/25/22 11/25/22 lithium carbonate 300 mg tablet 300 mg PO QAM 11/25/22 11/25/22 lithium carbonate 600 mg capsule 600 mg PO BEDTIME 11/25/22 11/25/22 melatonin 3 mg tablet 3 mg PO BEDTIME PRN Sleep 11/25/22 11/25/22 nitrofurantoin macrocrystal 100 mg 100 mg PO BID 11/25/22 11/25/22 capsule olanzapine 5 mg disintegrating 5 mg PO Q12H PRN Agitation 11/25/22 11/25/22 tablet polyvinyl alcohol 1.4 % eye drops 1 drp ophthalmic-Right QID 11/25/22 11/25/22 (Artificial Tears (polyvinyl alcohol)) trazodone 75 mg PO BEDTIME 11/25/22 11/25/22 trazodone 50 mg tablet 25 mg PO DAILY PRN Sleep 11/25/22 11/25/22 <JUNE Walker - Last Filed: 11/25/22 17:29> Allergies/adverse reactions: Allergies Allergy/AdvReac Type Severity Reaction Status Date / Time house dust Allergy Intermediate watery eyes Verified 08/20/21 11:33 adhesive Allergy Unknown Unknown Verified 10/15/21 14:32 fenofibrate Allergy Unknown Unknown Verified 10/15/21 14:32 Sulfa (Sulfonamide Allergy Unknown unknown Verified 10/15/21 14:32 Antibiotics) tomato Allergy Unknown Unknown Verified 10/15/21 14:32 Yeast Allergy Unknown Unknown Verified 10/15/21 14:32 zolpidem [From Ambien] Allergy Unknown Unknown Verified 10/15/21 14:32 lactose AdvReac Unknown Unknown Verified 10/15/21 14:32 <JUNE Walker - Last Filed: 11/25/22 17:29> Review of Systems Review of Systems: Yes Unobtainable due to mental status <JUNE Walker - Last Filed: 11/25/22 17:29> Constitutional: Constitutional: Denies fever(s) <JUNE Walker - Last Filed: 11/25/22 17:29> Eyes: Eyes: Denies eye discharge <JUNE Walker - Last Filed: 11/25/22 17:29> ENT: Denies neck mass <JUNE Walker - Last Filed: 11/25/22 17:29> Cardiovascular: Cardiovascular: Denies dyspnea and Denies dyspnea on exertion <JUNE Walker - Last Filed: 11/25/22 17:29> Respiratory: Respiratory: Denies dyspnea and Denies dyspnea on exertion <JUNE Walker - Last Filed: 11/25/22 17:29> Gastrointestinal: Gastrointestinal: Denies vomiting <JUNE Walker - Last Filed: 11/25/22 17:29> Genitourinary: Genitourinary: Reports no additional male genitourinary complaints, Denies hematuria, Denies oliguria, Denies difficulty urinating, Denies dysuria, Denies urinary frequency, Denies urinary hesitancy, Denies urinary incontinence and Denies urinary urgency <JUNE Walker - Last Filed: 11/25/22 17:29> Musculoskeletal: Musculoskeletal: Reports no additional musculoskeletal complaints, Denies numbness and Denies tingling <JUNE Walker - Last Filed: 11/25/22 17:29> Neurologic: Reports confusion (chronic for patient), Reports memory loss (chronic for patient), Denies numbness and Denies tingling <JUNE Walker - Last Filed: 11/25/22 17:29> Psychiatric: Psychiatric: Reports confusion (chronic for patient) and Reports memory loss (chronic for patient) <JUNE Walker - Last Filed: 11/25/22 17:29> Endocrine: Endocrine: Reports no additional endocrine complaints <JUNE Walker - Last Filed: 11/25/22 17:29> Hematologic/Lymphatic: Hematologic/Lymphatic: Reports no additional hematologic/lymphatic complaints <JUNE Walker - Last Filed: 11/25/22 17:29> Allergic/Immunologic: Allergic/Immunologic: Reports no additional allergic/immunologic complaints <JUNE Walker - Last Filed: 11/25/22 17:29> PMFSH Past Medical History Attestation statement: The following information was validated with the patient. (all information was validated with [facility] staff and paperwork) <JUNE Walker - Last Filed: 11/25/22 17:29> Source: old records reviewed, nursing notes reviewed and other (all information gathered from SNF staff and paperwork) <JUNE Walker - Last Filed: 11/25/22 17:29> Medical History: Medical History Atrial fibrillation History of ETT Hypertension Hypothyroidism Obstructive sleep apnea PAF (paroxysmal atrial fibrillation) Schizoaffective disorder, bipolar type <JUNE Walker - Last Filed: 11/25/22 17:29> Surgical History: Surgical History H/O arthroscopic knee surgery H/O congenital atrial septal defect (ASD) repair Hx laparoscopic cholecystectomy <JUNE Walker - Last Filed: 11/25/22 17:29> Family History Family History: Family History Mother Breast cancer Father Coronary artery disease Brother Coronary artery disease COPD (chronic obstructive pulmonary disease) Bone cancer Colon polyps <JUNE Walker - Last Filed: 11/25/22 17:29> Social History Social History: Social History Household Members: Other Household Members Other:: SNF Housing: Care Home Are you a primary care navigator to a significant other at home: No Do you presently have visiting nurse or other home services: Yes Patient Tobacco Use Status: Never used Tobacco e-Cigarette/Vaping Use: Never Used Second Hand Smoke Exposure: No Advance Directives: Yes Advance Directives on File: Yes Advance Directives Date on File: 09/26/21 Healthcare Proxy: Yes (Son is invoked HCP, he makes decisions for Minesh. HCP in record) Guardian: No service: No Current occupational status: disabled Sexual orientation: Straight/Heterosexual <JUNE Walker - Last Filed: 11/25/22 17:29> Physical Exam ED Vital Signs: Vital Signs - 24 hr 11/25/22 19:53 11/26/22 06:41 Temperature 98.5 F 97.6 F Pulse Rate 89 73 Respiratory Rate 20 18 Blood Pressure 150/87 H 139/84 Pulse Oximetry 96 97 Oxygen Delivery Method Room Air Room Air BMI result Body Mass Index 33.2 <JUNE Walker - Last Filed: 11/25/22 17:29> Vital Signs - 24 hr 11/25/22 19:53 11/26/22 06:41 Temperature 98.5 F 97.6 F Pulse Rate 89 73 Respiratory Rate 20 18 Blood Pressure 150/87 H 139/84 Pulse Oximetry 96 97 Oxygen Delivery Method Room Air Room Air BMI result Body Mass Index 33.2 <Ji James MD - Last Filed: 11/26/22 14:03> Const General: confusion (chronic for patient) <JUNE Walker - Last Filed: 11/25/22 17:29> Nutritional Appearance: well nourished <JUNE Walker - Last Filed: 11/25/22 17:29> Orientation/consciousness: confusion (chronic for patient) <JUNE Walker - Last Filed: 11/25/22 17:29> Limitations: no limitations <JUNE Walker - Last Filed: 11/25/22 17:29> HENMT Head: Yes normal to inspection and Yes atraumatic <JUNE Walker - Last Filed: 11/25/22 17:29> Ears: hearing grossly normal bilaterally and external ears normal <JUNE Walker - Last Filed: 11/25/22 17:29> General nose exam: Normal external nose present, no nasal discharge noted and no epistaxis <JUNE Walker - Last Filed: 11/25/22 17:29> Face and sinus: Yes normal facial exam, No abrasion and No laceration <JUNE Walker - Last Filed: 11/25/22 17:29> Mouth: Normal oral and palatal mucosa present, no drooling and no muffled voice <JUNE Walker - Last Filed: 11/25/22 17:29> Eyes General: appearance normal, both eyes and all related structures <JUNE Walker - Last Filed: 11/25/22 17:29> Periorbital: periorbital findings normal <JUNE Walker - Last Filed: 11/25/22 17:29> Eyelids: Yes eyelids normal <JUNE Walker - Last Filed: 11/25/22 17:29> Conjunctivae: conjunctivae normal <Veronica Curran PA - Last Filed: 11/25/22 17:29> Pupils: Equal, round and reactive pupils present <Veronica Curran PA - Last Filed: 11/25/22 17:29> EOM: EOMs intact bilaterally <Veronica Curran PA - Last Filed: 11/25/22 17:29> Neck Neck: Yes normal visual inspection, Yes full ROM and Yes no lymphadenopathy <Veronica Curran PA - Last Filed: 11/25/22 17:29> Chest Chest palpation & inspection: normal inspection of the chest <Veronica Curran PA - Last Filed: 11/25/22 17:29> Resp Effort & Inspection: normal respiratory effort and able to speak in complete sentences <Veronica Curran PA - Last Filed: 11/25/22 17:29> Auscultation: clear to auscultation bilaterally <Veronica Curran PA - Last Filed: 11/25/22 17:29> Cardio Rate: regular rate <Veronica Curran PA - Last Filed: 11/25/22 17:29> Rhythm: regular rhythm <Veronica Curran PA - Last Filed: 11/25/22 17:29> GI Inspection: Yes normal to inspection <Veronica Curran PA - Last Filed: 11/25/22 17:29> Palpation (GI): Soft to palpation, not firm, nontender and no guarding <Veronica Curran PA - Last Filed: 11/25/22 17:29> Neuro General: confusion (chronic for patient) <Veronica Curran PA - Last Filed: 11/25/22 17:29> Cranial nerves: Yes Equal, round and reactive pupils present <Veronica Curran PA - Last Filed: 11/25/22 17:29> Cognition (Neuro): normal cognition <Veronica Wrenkali PA - Last Filed: 11/25/22 17:29> Motor exam (neuro): 5/5 motor strength present throughout <Veronica Curran PA - Last Filed: 11/25/22 17:29> Sensory Exam: Normal double simultaneous stimulation for sensation <Veronica Wrenkali PA - Last Filed: 11/25/22 17:29> Coordination: [id number] test normal <JUNE Walker - Last Filed: 11/25/22 17:29> Extrem General: Yes normal to inspection, Yes full ROM and Yes capillary refill normal <JUNE Walker - Last Filed: 11/25/22 17:29> Psych Appearance: grossly normal <JUNE Walker - Last Filed: 11/25/22 17:29> Mental Status: mental status grossly normal <JUNE Walker - Last Filed: 11/25/22 17:29> Affect: normal affect <JUNE Walker - Last Filed: 11/25/22 17:29> Attitude: cooperative <JUNE Walker - Last Filed: 11/25/22 17:29> Thought process: Normal thought process present <JUNE Walker - Last Filed: 11/25/22 17:29> Thought content: Normal thought content present <JUNE Walker - Last Filed: 11/25/22 17:29> Insight: Good insight present (Psych) <JUNE Walker - Last Filed: 11/25/22 17:29> Course Reevaluation(s) Reevaluation #1: patient remains a bed search at this time. <Ji James MD - Last Filed: 11/26/22 14:03> Time: 14:03 <Ji James MD - Last Filed: 11/26/22 14:03> Medications Administered Generic Name Dose Route Start Last Admin Trade Name Thalia PRN Reason Stop Dose Admin Apixaban 5 mg 11/25/22 21:00 11/26/22 08:12 Apixaban 5 Mg Tablet PO 5 mg BID JOSEPHINE Administration Carvedilol 12.5 mg 11/25/22 21:00 11/26/22 08:12 Carvedilol 12.5 Mg Tablet PO 12.5 mg BID JOSEPHINE Administration Protocol Cephalexin HCl 500 mg 11/25/22 17:00 11/26/22 12:28 Cephalexin 500 Mg Capsule PO 12/01/22 23:59 500 mg QID JOSEPHINE Administration Clozapine 300 mg 11/25/22 21:00 11/25/22 20:08 Clozapine 100 Mg Tablet PO 300 mg BEDTIME JOSEPHINE Administration Clozapine 50 mg 11/26/22 09:00 11/26/22 08:14 Clozapine 25 Mg Tablet PO 50 mg DAILY JOSEPHINE Administration Clozapine 75 mg 11/25/22 21:00 11/25/22 20:08 Clozapine 25 Mg Tablet PO 75 mg BEDTIME JOSEPHINE Administration Gabapentin 100 mg 11/25/22 15:00 11/26/22 08:12 Gabapentin 100 Mg Capsule PO 100 mg TID JOSEPHINE Administration Lamotrigine 50 mg 11/25/22 21:00 11/26/22 08:15 Lamotrigine 25 Mg Tablet PO 50 mg BID JOSEPHINE Administration Levothyroxine Sodium 175 mcg 11/26/22 06:00 11/26/22 06:34 Levothyroxine Sodium 175 Mcg Tablet PO 175 mcg DAILY@0600 JOSEPHINE Administration Crayne Carbonate 300 mg 11/26/22 09:00 11/26/22 08:15 Crayne Carbonate 300 Mg Capsule PO 300 mg DAILY JOSEPHINE Administration Crayne Carbonate 600 mg 11/25/22 21:00 11/25/22 19:54 Crayne Carbonate 300 Mg Capsule PO 600 mg BEDTIME JOSEPHINE Administration Nitrofurantoin Macrocrystals 100 mg 11/25/22 21:00 11/26/22 08:13 Nitrofurantoin Macrocrystal 50 Mg Capsule PO 100 mg BID JOSEPHINE Administration Trazodone HCl 75 mg 11/25/22 21:00 11/25/22 19:54 Trazodone Hcl 25 Mg Halftab PO 75 mg BEDTIME JOSEPHINE Administration <JUNE Walker - Last Filed: 11/25/22 17:29> Medications Administered Generic Name Dose Route Start Last Admin Trade Name Mattq PRN Reason Stop Dose Admin Apixaban 5 mg 11/25/22 21:00 11/26/22 08:12 Apixaban 5 Mg Tablet PO 5 mg BID JOSEPHINE Administration Carvedilol 12.5 mg 11/25/22 21:00 11/26/22 08:12 Carvedilol 12.5 Mg Tablet PO 12.5 mg BID JOSEPHINE Administration Protocol Cephalexin HCl 500 mg 11/25/22 17:00 11/26/22 12:28 Cephalexin 500 Mg Capsule PO 12/01/22 23:59 500 mg QID JOSEPHINE Administration Clozapine 300 mg 11/25/22 21:00 11/25/22 20:08 Clozapine 100 Mg Tablet PO 300 mg BEDTIME JOSEPHINE Administration Clozapine 50 mg 11/26/22 09:00 11/26/22 08:14 Clozapine 25 Mg Tablet PO 50 mg DAILY JOSEPHINE Administration Clozapine 75 mg 03/29/23 21:00 11/25/22 20:08 Clozapine 25 Mg Tablet PO 75 mg BEDTIME JOSEPHINE Administration Gabapentin 100 mg 11/25/22 15:00 11/26/22 08:12 Gabapentin 100 Mg Capsule PO 100 mg TID JOSEPHINE Administration Lamotrigine 50 mg 11/25/22 21:00 11/26/22 08:15 Lamotrigine 25 Mg Tablet PO 50 mg BID JOSEPHINE Administration Levothyroxine Sodium 175 mcg 11/26/22 06:00 11/26/22 06:34 Levothyroxine Sodium 175 Mcg Tablet PO 175 mcg DAILY@0600 JOSEPHINE Administration Crayne Carbonate 300 mg 11/26/22 09:00 11/26/22 08:15 Crayne Carbonate 300 Mg Capsule PO 300 mg DAILY JOSEPHINE Administration Crayne Carbonate 600 mg 11/25/22 21:00 11/25/22 19:54 Crayne Carbonate 300 Mg Capsule PO 600 mg BEDTIME JOSEPHINE Administration Nitrofurantoin Macrocrystals 100 mg 11/25/22 21:00 11/26/22 08:13 Nitrofurantoin Macrocrystal 50 Mg Capsule PO 100 mg BID JOSEPHINE Administration Trazodone HCl 75 mg 11/25/22 21:00 11/25/22 19:54 Trazodone Hcl 25 Mg Halftab PO 75 mg BEDTIME JOSEPHINE Administration <Ji James MD - Last Filed: 11/26/22 14:03> Medical Decision Making Medical Decision Making MDM Narrative: Patient is a 67 year old assigned male at with a history of schizoaffective disorder and dementia presenting to the emergency department today with worsening AMS. Patient's physical exam showed an obviously disorganized individual. Patient's blood work was unremarkable. Patient's urine showed a current UTI. Given that this is day 4 of the patient's macrobid course and his urine still looks this infected, will discontinue the macrobid and switch to keflex. Patient's EKG was unremarkable. CARE team evaluated the patient and recommended inpatient psychiatric admission. I explained my physical exam findings as well as all test results to the patient. I answered all questions asked by the patient. Patient is still in the POD awaiting bed placement. <JUNE Walker - Last Filed: 11/25/22 17:29> Differential Diagnosis Differential Diagnoses: The differential diagnosis associated with the presentation includes <JUNE Walker - Last Filed: 11/25/22 17:29> UTI, psychosis <JUNE Walker - Last Filed: 11/25/22 17:29> Lab Data MDM Lab Attestation statement: I reviewed the patient's lab results. <JUNE Walker - Last Filed: 11/25/22 17:29> Result Diagrams: 11/25/22 11:34 11/25/22 11:34 <JUNE Walker - Last Filed: 11/25/22 17:29> Labs: Lab Results 11/25/22 11/25/22 11/25/22 Range/Units 11:34 11:34 11:34 WBC 10.5 (4.8-10.8) X10*3/uL RBC 4.34 L (4.60-5.80) X10*6/uL Hgb 12.4 L (14.0-18.0) g/dl Hct 38.3 L (42.0-52.0) % MCV 88.2 (80.0-98.0) fL MCH 28.6 (27.0-33.0) pg MCHC 32.4 (31.0-36.0) g/dl RDW 13.2 (11.0-16.0) % Plt Count 337 (160-400) X10*3/uL MPV 10.1 (9.4-12.4) fL Immature Gran % (Auto) 0.4 (0.0-0.4) % Neut % (Auto) 71.8 (45-73) % Lymph % (Auto) 14.9 L (20-40) % [place] % (Auto) 9.7 (2-11) % Eos % (Auto) 2.7 (0-4) % Baso % (Auto) 0.5 (0-2) % Lymph # (Auto) 1.6 (1.2-4.9) X10*3/uL [place] # (Auto) 1.0 (0.1-1.2) X10*3/uL Eos # (Auto) 0.3 (0.0-0.4) X10*3/uL Baso # (Auto) 0.1 (0.0-0.2) X10*3/uL Abs Immat Gran (auto) 0.04 H (0.00-0.03) X10*3/uL Absolute Neuts (auto) 7.6 (2.0-8.3) x10*3/uL Absolute Nucleated RBC 0.000 (0.0-0.012) X10*3/uL Nucleated RBC % (auto) 0.0 (0.0-0.2) /100WBC Sodium 142 (135-145) mmol/L Potassium 3.9 (3.3-5.1) mmol/L Chloride 110 H (96-108) mmol/L Carbon Dioxide 23 (22-29) mmol/L Anion Gap 13 (12-20) BUN 11 (9-16) mg/dL Creatinine 0.93 (0.5-1.4) mg/dL Estim Creat Clear Calc 97.8 Estimated GFR > 60 Random Glucose 122 H (60-115) mg/dL Calcium 9.4 (8.4-10.2) mg/dL Total Bilirubin 0.4 (0.0-1.0) mg/dL AST 24 (5-37) U/L ALT 22 (0-40) U/L Alkaline Phosphatase 97 (39-117) U/L Total Protein 6.5 (6.5-8.0) g/dL Albumin 4.2 (3.5-5.0) g/dL Urine Color Urine Appearance Urine pH (5.0-9.0) Ur Specific [place] (1.005-1.025) Urine Protein (Neg-Trace) mg/dL Urine Glucose (UA) (Negative) mg/dL Urine Ketones (Negative) mg/dL Urine Blood (Negative) Urine Nitrite (Negative) Ur Leukocyte Esterase (Negative) Urine RBC (0-2) /HPF Urine WBC (0-5) /HPF Ur Squamous Epith Cells (0-2) /HPF Urine Bacteria (None Seen) Hyaline Casts (0-2) /LPF Urine Opiates Screen (Not Detect) Urine Fentanyl Screen (Not Detect) Ur Barbiturates Screen (Not Detect) Ur Phencyclidine Scrn (Not Detect) Ur Amphetamines Screen (Not Detect) U Benzodiazepines Scrn (Not Detect) Crayne (0.60-1.20) mmol/L Urine Cocaine Screen (Not Detect) U Marijuana (THC) Screen (Not Detect) COVID-19 (HUNTER) Negative (Negative) COVID-19 Clin Com See Note 11/25/22 11/25/22 11/25/22 Range/Units 12:27 13:27 13:27 WBC (4.8-10.8) X10*3/uL RBC (4.60-5.80) X10*6/uL Hgb (14.0-18.0) g/dl Hct (42.0-52.0) % MCV (80.0-98.0) fL MCH (27.0-33.0) pg MCHC (31.0-36.0) g/dl RDW (11.0-16.0) % Plt Count (160-400) X10*3/uL MPV (9.4-12.4) fL Immature Gran % (Auto) (0.0-0.4) % Neut % (Auto) (45-73) % Lymph % (Auto) (20-40) % [place] % (Auto) (2-11) % Eos % (Auto) (0-4) % Baso % (Auto) (0-2) % Lymph # (Auto) (1.2-4.9) X10*3/uL [place] # (Auto) (0.1-1.2) X10*3/uL Eos # (Auto) (0.0-0.4) X10*3/uL Baso # (Auto) (0.0-0.2) X10*3/uL Abs Immat Gran (auto) (0.00-0.03) X10*3/uL Absolute Neuts (auto) (2.0-8.3) x10*3/uL Absolute Nucleated RBC (0.0-0.012) X10*3/uL Nucleated RBC % (auto) (0.0-0.2) /100WBC Sodium (135-145) mmol/L Potassium (3.3-5.1) mmol/L Chloride (96-108) mmol/L Carbon Dioxide (22-29) mmol/L Anion Gap (12-20) BUN (9-16) mg/dL Creatinine (0.5-1.4) mg/dL Estim Creat Clear Calc Estimated GFR Random Glucose (60-115) mg/dL Calcium (8.4-10.2) mg/dL Total Bilirubin (0.0-1.0) mg/dL AST (5-37) U/L ALT (0-40) U/L Alkaline Phosphatase (39-117) U/L Total Protein (6.5-8.0) g/dL Albumin (3.5-5.0) g/dL Urine Color Yellow Urine Appearance Turbid Urine pH 6.5 (5.0-9.0) Ur Specific [place] 1.010 (1.005-1.025) Urine Protein 30 (1+) H (Neg-Trace) mg/dL Urine Glucose (UA) Negative (Negative) mg/dL Urine Ketones Negative (Negative) mg/dL Urine Blood Trace H (Negative) Urine Nitrite Positive H (Negative) Ur Leukocyte Esterase Large (3+) H (Negative) Urine RBC 0-2 (0-2) /HPF Urine WBC >50 H (0-5) /HPF Ur Squamous Epith Cells 0-2 (0-2) /HPF Urine Bacteria 4+ (None Seen) Hyaline Casts 0-2 (0-2) /LPF Urine Opiates Screen Not Detected (Not Detect) Urine Fentanyl Screen Not Detected (Not Detect) Ur Barbiturates Screen Not Detected (Not Detect) Ur Phencyclidine Scrn Not Detected (Not Detect) Ur Amphetamines Screen Not Detected (Not Detect) U Benzodiazepines Scrn Not Detected (Not Detect) Crayne 1.09 (0.60-1.20) mmol/L Urine Cocaine Screen Not Detected (Not Detect) U Marijuana (THC) Screen Not Detected (Not Detect) COVID-19 (HUNTER) (Negative) COVID-19 Clin Com <JUNE Walker - Last Filed: 11/25/22 17:29> Lab Results 11/25/22 11/25/22 11/25/22 Range/Units 11:34 11:34 11:34 WBC 10.5 (4.8-10.8) X10*3/uL RBC 4.34 L (4.60-5.80) X10*6/uL Hgb 12.4 L (14.0-18.0) g/dl Hct 38.3 L (42.0-52.0) % MCV 88.2 (80.0-98.0) fL MCH 28.6 (27.0-33.0) pg MCHC 32.4 (31.0-36.0) g/dl RDW 13.2 (11.0-16.0) % Plt Count 337 (160-400) X10*3/uL MPV 10.1 (9.4-12.4) fL Immature Gran % (Auto) 0.4 (0.0-0.4) % Neut % (Auto) 71.8 (45-73) % Lymph % (Auto) 14.9 L (20-40) % [place] % (Auto) 9.7 (2-11) % Eos % (Auto) 2.7 (0-4) % Baso % (Auto) 0.5 (0-2) % Lymph # (Auto) 1.6 (1.2-4.9) X10*3/uL [place] # (Auto) 1.0 (0.1-1.2) X10*3/uL Eos # (Auto) 0.3 (0.0-0.4) X10*3/uL Baso # (Auto) 0.1 (0.0-0.2) X10*3/uL Abs Immat Gran (auto) 0.04 H (0.00-0.03) X10*3/uL Absolute Neuts (auto) 7.6 (2.0-8.3) x10*3/uL Absolute Nucleated RBC 0.000 (0.0-0.012) X10*3/uL Nucleated RBC % (auto) 0.0 (0.0-0.2) /100WBC Sodium 142 (135-145) mmol/L Potassium 3.9 (3.3-5.1) mmol/L Chloride 110 H (96-108) mmol/L Carbon Dioxide 23 (22-29) mmol/L Anion Gap 13 (12-20) BUN 11 (9-16) mg/dL Creatinine 0.93 (0.5-1.4) mg/dL Estim Creat Clear Calc 97.8 Estimated GFR > 60 Random Glucose 122 H (60-115) mg/dL Calcium 9.4 (8.4-10.2) mg/dL Total Bilirubin 0.4 (0.0-1.0) mg/dL AST 24 (5-37) U/L ALT 22 (0-40) U/L Alkaline Phosphatase 97 (39-117) U/L Total Protein 6.5 (6.5-8.0) g/dL Albumin 4.2 (3.5-5.0) g/dL Urine Color Urine Appearance Urine pH (5.0-9.0) Ur Specific [place] (1.005-1.025) Urine Protein (Neg-Trace) mg/dL Urine Glucose (UA) (Negative) mg/dL Urine Ketones (Negative) mg/dL Urine Blood (Negative) Urine Nitrite (Negative) Ur Leukocyte Esterase (Negative) Urine RBC (0-2) /HPF Urine WBC (0-5) /HPF Ur Squamous Epith Cells (0-2) /HPF Urine Bacteria (None Seen) Hyaline Casts (0-2) /LPF Urine Opiates Screen (Not Detect) Urine Fentanyl Screen (Not Detect) Ur Barbiturates Screen (Not Detect) Ur Phencyclidine Scrn (Not Detect) Ur Amphetamines Screen (Not Detect) U Benzodiazepines Scrn (Not Detect) [place] (0.60-1.20) mmol/L Urine Cocaine Screen (Not Detect) U Marijuana (THC) Screen (Not Detect) COVID-19 (HUNTER) Negative (Negative) COVID-19 Clin Com See Note 11/25/22 11/25/22 11/25/22 Range/Units 12:27 13:27 13:27 WBC (4.8-10.8) X10*3/uL RBC (4.60-5.80) X10*6/uL Hgb (14.0-18.0) g/dl Hct (42.0-52.0) % MCV (80.0-98.0) fL MCH (27.0-33.0) pg MCHC (31.0-36.0) g/dl RDW (11.0-16.0) % Plt Count (160-400) X10*3/uL MPV (9.4-12.4) fL Immature Gran % (Auto) (0.0-0.4) % Neut % (Auto) (45-73) % Lymph % (Auto) (20-40) % [place] % (Auto) (2-11) % Eos % (Auto) (0-4) % Baso % (Auto) (0-2) % Lymph # (Auto) (1.2-4.9) X10*3/uL [place] # (Auto) (0.1-1.2) X10*3/uL Eos # (Auto) (0.0-0.4) X10*3/uL Baso # (Auto) (0.0-0.2) X10*3/uL Abs Immat Gran (auto) (0.00-0.03) X10*3/uL Absolute Neuts (auto) (2.0-8.3) x10*3/uL Absolute Nucleated RBC (0.0-0.012) X10*3/uL Nucleated RBC % (auto) (0.0-0.2) /100WBC Sodium (135-145) mmol/L Potassium (3.3-5.1) mmol/L Chloride (96-108) mmol/L Carbon Dioxide (22-29) mmol/L Anion Gap (12-20) BUN (9-16) mg/dL Creatinine (0.5-1.4) mg/dL Estim Creat Clear Calc Estimated GFR Random Glucose (60-115) mg/dL Calcium (8.4-10.2) mg/dL Total Bilirubin (0.0-1.0) mg/dL AST (5-37) U/L ALT (0-40) U/L Alkaline Phosphatase (39-117) U/L Total Protein (6.5-8.0) g/dL Albumin (3.5-5.0) g/dL Urine Color Yellow Urine Appearance Turbid Urine pH 6.5 (5.0-9.0) Ur Specific [place] 1.010 (1.005-1.025) Urine Protein 30 (1+) H (Neg-Trace) mg/dL Urine Glucose (UA) Negative (Negative) mg/dL Urine Ketones Negative (Negative) mg/dL Urine Blood Trace H (Negative) Urine Nitrite Positive H (Negative) Ur Leukocyte Esterase Large (3+) H (Negative) Urine RBC 0-2 (0-2) /HPF Urine WBC >50 H (0-5) /HPF Ur Squamous Epith Cells 0-2 (0-2) /HPF Urine Bacteria 4+ (None Seen) Hyaline Casts 0-2 (0-2) /LPF Urine Opiates Screen Not Detected (Not Detect) Urine Fentanyl Screen Not Detected (Not Detect) Ur Barbiturates Screen Not Detected (Not Detect) Ur Phencyclidine Scrn Not Detected (Not Detect) Ur Amphetamines Screen Not Detected (Not Detect) U Benzodiazepines Scrn Not Detected (Not Detect) [place] 1.09 (0.60-1.20) mmol/L Urine Cocaine Screen Not Detected (Not Detect) U Marijuana (THC) Screen Not Detected (Not Detect) COVID-19 (HUNTER) (Negative) COVID-19 Clin Com <Ji James MD - Last Filed: 11/26/22 14:03> Independent Interpretation I performed an independent interpretation of an: EKG <JUNE Walker - Last Filed: 11/25/22 17:29> Interpretation: Vent. Rate: 081 BPM ? ? Atrial Rate: 081 BPM P-R Int: 214 ms? QRS Dur: 164 ms QT Int: 420 ms ? ? ? P-R-T Axes: 067 -43 038 degrees QTc Int: 487 ms ? Sinus rhythm with 1st degree A-V block Left axis deviation Right bundle branch block Abnormal ECG When compared with ECG of 18-NOV-2021 13:03, No significant change was found ? Electronically Signed By:MITCH VELEZ Dictated By: Mitch Velez MD Signed By: Electronically signed by Mitch Velez MD 11/25/22 1314 <JUNE Walker - Last Filed: 11/25/22 17:29> Independent Historian Clinical information obtained from an independent historian. History obtained from or confirmed by: EMS and Other (SNF staff) <JUNE Walker - Last Filed: 11/25/22 17:29> External Record Review External record reviewed: Outpatient record (SNF records) <JUNE Walker - Last Filed: 11/25/22 17:29> Chronic Conditions Patient?s care impacted by: Other (schizoaffective disorder and dementia) <JUNE Walker - Last Filed: 11/25/22 17:29> Critical Care Time Critical Care Time Critical Care Time: Yes <JUNE Walker - Last Filed: 11/25/22 17:29> Total Critical Care Time: 30 <JUNE Walker - Last Filed: 11/25/22 17:29> Attestation: I spent 30 minutes of Critical Care Time with this patient. This does not include time spent on separately reported billable procedures. <JUNE Walker - Last Filed: 11/25/22 17:29> Discharge Plan Discharge Clinical Impression: Schizoaffective disorder, bipolar type, Acute UTI <JUNE Walker - Last Filed: 11/25/22 17:29> Patient Disposition: Still a Patient <JUNE Walker - Last Filed: 11/25/22 17:29> Prescriptions: No Action carvedilol 12.5 mg Tablet 12.5 mg PO BID Rx Instructions: must administer with a meal/food acetaminophen 650 mg Tablet 650 mg PO Q6H PRN (Reason: Pain) clozapine [Clozaril] 50 mg Tablet 50 mg PO QAM apixaban 5 mg Tablet 5 mg PO BID clozapine 375 mg 375 mg PO BEDTIME gabapentin 100 mg Capsule 100 mg PO TID gabapentin 100 mg Capsule 100 mg PO Q8H PRN (Reason: Anxiety) lamotrigine [Lamictal] 25 mg Tablet 50 mg PO BID levothyroxine 175 mcg Tablet 175 mcg PO DAILY lithium carbonate 600 mg Capsule 600 mg PO BEDTIME lithium carbonate 300 mg Tablet 300 mg PO QAM olanzapine 5 mg Tablet,Disintegrating 5 mg PO Q12H PRN (Reason: Agitation) trazodone 75 mg 75 mg PO BEDTIME trazodone 50 mg Tablet 25 mg PO DAILY PRN (Reason: Sleep) polyvinyl alcohol [Artificial Tears (polyvin alc)] 1.4 % Drops 1 drp OPHTHALMIC-RIGHT QID melatonin 3 mg Tablet 3 mg PO BEDTIME PRN (Reason: Sleep) nitrofurantoin macrocrystal 100 mg Capsule 100 mg PO BID Rx Instructions: must administer with a meal/food finish on 11/28/22 clotrimazole 1 % Cream 1 appl TOPICAL BID <JUNE Walker - Last Filed: 11/25/22 17:29> Interventions: [place]-Suicide Risk Severity Scale Last Done: 11/26/22 01:04 <JUNE Walker - Last Filed: 11/25/22 17:29>
[2022-11-25 11:41] LABS: MANUAL DIFF FLAG NO
[2022-11-25 11:50] LABS: Basophils Absolute Auto 0.1 X10*3/uL (0.0-0.2); Basophils Percent Auto 0.5 % (0-2); Eosinophils Absolute Auto 0.3 X10*3/uL (0.0-0.4); Eosinophils Percent Auto 2.7 % (0-4); Hematocrit 38.3 % (42.0-52.0); Hemoglobin 12.4 g/dl (14.0-18.0); Imm Gran Abs Auto 0.04 X10*3/uL (0.00-0.03); Imm Gran Pct Auto 0.4 % (0.0-0.4); Lymphocytes Absolute Auto 1.6 X10*3/uL (1.2-4.9); Lymphocytes Percent Auto 14.9 % (20-40); Mean Corpuscular HGB Conc 32.4 g/dl (31.0-36.0); Mean Corpuscular Hemoglobin 28.6 pg (27.0-33.0); Mean Corpuscular Volume 88.2 fL (80.0-98.0); Mean Platelet Volume 10.1 fL (9.4-12.4); Monocytes Percent Auto 9.7 % (2-11); Neutrophils Absolute Auto 7.6 x10*3/uL (2.0-8.3); Neutrophils Percent Auto 71.8 % (45-73); Platelet Count 337 X10*3/uL (160-400); Red Blood Count 4.34 X10*6/uL (4.60-5.80); Red Cell Distribution Width 13.2 % (11.0-16.0); White Blood Count 10.5 X10*3/uL (4.8-10.8)
[2022-11-25 11:58] LABS: Alanine Aminotransferase 22 U/L (0-40); Albumin Level 4.2 g/dL (3.5-5.0); Alkaline Phosphatase 97 U/L (39-117); Anion Gap 13 (12-20); Aspartate Amino Transferase 24 U/L (5-37); Bilirubin Total 0.4 mg/dL (0.0-1.0); Blood Urea Nitrogen 11 mg/dL (9-16); Calcium 9.4 mg/dL (8.4-10.2); Carbon Dioxide 23 mmol/L (22-29); Chloride 110 mmol/L (96-108); Creatinine Clr Calc Pharmacy 97.8; Estimated Glomerular Filt Rate > 60; Glucose Random 122 mg/dL (60-115); Potassium 3.9 mmol/L (3.3-5.1); Sodium 142 mmol/L (135-145); Total Protein 6.5 g/dL (6.5-8.0)
[2022-11-25 12:03] LABS: COVID-19 Test Negative (Negative); IDNOW Serial# 08D9AD1C
[2022-11-25 12:48] LABS: Lithium 1.09 mmol/L (0.60-1.20)
[2022-11-25 13:35] LABS: Appearance Urine Turbid; Color Urine Yellow; Glucose Urine UA Negative (Negative); Leukocyte Esterase Urine Large (3+) (Negative); Nitrite Urine Positive (Negative); PH 6.5 (5.0-9.0); UMIC TRIGGER UACC YES; Urine Blood Trace (Negative); Urine Ketones Negative (Negative); Urine Protein 30 (1+) mg/dL (Neg-Trace)
--- NOTE | 2022-11-25 13:37 | MHC.EDTECH ---
pt was incontinent of stool and urine in his brief. pt was cleaned, new brief given with rn approval, urine collected, pt now in bed resting
[2022-11-25 13:40] LABS: Bacteria Urine 4+ (None Seen); Hyaline Casts Urine 0-2 /LPF (0-2); RBC Urine 0-2 /HPF (0-2); Squamous Epithelial Cell Urine 0-2 /HPF (0-2); UACC Culture Trigger YES; WBC Urine >50 /HPF (0-5)
[2022-11-25 13:44] LABS: Amphetamine Screen Urine Not Detected (Not Detect); Barbiturates, Urine Not Detected (Not Detect); Benzodiazepines Screen Urine Not Detected (Not Detect); Cannabinoid Screen Urine Not Detected (Not Detect); Cocaine Screen Urine Not Detected (Not Detect); Fentanyl, urine Not Detected (Not Detect); Opiate Screen Urine Not Detected (Not Detect); Phencyclidine Screen Urine Not Detected (Not Detect)
--- NOTE | 2022-11-25 14:19 | PHA.MEDREC ---
Pharmacy Consult ? Medication Reconciliation Pharmacy has reviewed the medication reconciliation completed by nursing. Patient came from [facility]. Last clozaril dose was this morning 11/25/2022 Jasmyn NajeraD
[2022-11-25] MEDS: Gabapentin 100 MG CAPSULE PO ×2 (16:44→19:54)
[2022-11-25] MEDS: cephALEXin 500 MG CAPSULE PO ×2 (16:44→19:54)
--- NOTE | 2022-11-25 17:17 | PC.NURSE ---
Pt up, visible in hallway. Soft spoken and slightly difficult to understand. In behavioral control at this time. Medicated per MAR
[2022-11-25 19:53] VITALS: BP 150/87; PULSE 89; RESP 20; TEMP 36.9; O2SAT 96
[2022-11-25] MEDS: carvediloL 12.5 MG TABLET PO (19:54)
[2022-11-25] MEDS: Apixaban 5 MG TABLET PO (19:54)
[2022-11-25] MEDS: traZODone HCL 25 MG HALFTAB 75 MG PO (19:54)
[2022-11-25] MEDS: Lithium Carbonate 300 MG CAPSULE 600 MG PO (19:54)
[2022-11-25] MEDS: lamoTRIgine 25 MG TABLET 50 MG PO (19:55)
[2022-11-25] MEDS: cloZAPine 100 MG TABLET 300 MG PO (20:08)
[2022-11-25] MEDS: nitrofurantoin macrocrystaL 50 MG CAPSULE 100 MG PO (20:08)
[2022-11-25] MEDS: cloZAPine 25 MG TABLET 75 MG PO (20:08)
--- NOTE | 2022-11-26 05:55 | PC.NURSE ---
Patient slept through the night, no distress observed/reported, behavior non concerning, thought content paranoid and thought process tangential, disposition per care team is section 12 inpatient bed search, medication compliant, patient is incontinence both bowel and bladder needs incontinence care, VSS, will continue to monitor.
[2022-11-26] MEDS: Levothyroxine Sodium 175 MCG TABLET PO (06:34)
[2022-11-26 06:41] VITALS: BP 139/84; PULSE 73; RESP 18; TEMP 36.4; O2SAT 97
--- NOTE | 2022-11-26 07:33 | PC.NURSE ---
patient appears to be resting, watching tv in common area, some gentle self dialogue a lot of content about foods. able to make staff aware when he needs assistance. patient appears in no distress.
[2022-11-26] MEDS: Gabapentin 100 MG CAPSULE PO ×3 (08:12→19:52)
[2022-11-26] MEDS: carvediloL 12.5 MG TABLET PO ×2 (08:12→19:51)
[2022-11-26] MEDS: Apixaban 5 MG TABLET PO ×2 (08:12→19:53)
[2022-11-26] MEDS: nitrofurantoin macrocrystaL 50 MG CAPSULE 100 MG PO ×2 (08:13→19:53)
[2022-11-26] MEDS: cloZAPine 25 MG TABLET 50 MG PO (08:14)
[2022-11-26] MEDS: lamoTRIgine 25 MG TABLET 50 MG PO ×2 (08:15→19:52)
[2022-11-26] MEDS: Lithium Carbonate 300 MG CAPSULE PO (08:15)
[2022-11-26] MEDS: cephALEXin 500 MG CAPSULE PO ×4 (08:15→19:52)
--- NOTE | 2022-11-26 12:16 | MHC.CARE ---
[facility] bedsearch is exhausted for today. T/w contact [facility], and [facility], all of which are full today.
--- NOTE | 2022-11-26 15:02 | PC.NURSE ---
Pt seen this day for individual OT tx. Upon approach pt presents with mild agitation as POD staff having difficulty toileting pt. This [employer]L is able to redirect pt and assist in facilitating toileting task as the pt is familiar and receptive to prompts from this communications writer. Pt is known to like disco music and is played for him with positive result as noted by pt swaying to music as well as singing along, elevated mood noted. POD staff education provided with regard to pts interests.
[2022-11-26 19:50] VITALS: BP 142/82; PULSE 78; RESP 20; TEMP 36.6; O2SAT 98
[2022-11-26] MEDS: traZODone HCL 25 MG HALFTAB 75 MG PO (19:51)
[2022-11-26] MEDS: Lithium Carbonate 300 MG CAPSULE 600 MG PO (19:52)
[2022-11-26] MEDS: cloZAPine 100 MG TABLET 300 MG PO (19:53)
[2022-11-26] MEDS: cloZAPine 25 MG TABLET 75 MG PO (19:53)
[2022-11-27 06:05] VITALS: RESP 18
[2022-11-27] MEDS: Levothyroxine Sodium 175 MCG TABLET PO (06:41)
--- NOTE | 2022-11-27 07:09 | PC.NURSE ---
Patient walking about pod some confusion at baseline easily redirected no agitation noted behavior appropriate will CTM
[2022-11-27 07:56] VITALS: BP 143/78; PULSE 86; RESP 18; O2SAT 97
[2022-11-27] MEDS: Apixaban 5 MG TABLET PO ×2 (08:00→22:07)
[2022-11-27] MEDS: Lithium Carbonate 300 MG CAPSULE PO (08:00)
[2022-11-27] MEDS: cephALEXin 500 MG CAPSULE PO ×4 (08:01→22:07)
[2022-11-27] MEDS: Gabapentin 100 MG CAPSULE PO ×3 (08:01→22:08)
[2022-11-27] MEDS: carvediloL 12.5 MG TABLET PO ×2 (08:01→22:03)
[2022-11-27] MEDS: lamoTRIgine 25 MG TABLET 50 MG PO ×2 (08:01→22:03)
[2022-11-27] MEDS: cloZAPine 25 MG TABLET 50 MG PO (08:10)
[2022-11-27] MEDS: nitrofurantoin macrocrystaL 50 MG CAPSULE 100 MG PO ×2 (08:10→22:02)
--- NOTE | 2022-11-27 12:05 | MHC.EDTECH ---
PT ATTEMPTED TO FLUSH SANDRA DOWN TOILET. PT STOPPED AND THIS PCT ASSISTED PT TO CHANGE SATYA. RN AWARE
--- NOTE | 2022-11-27 12:11 | PC.NURSE ---
pt has been in and out of room, mumbling self dialog at times, occasionally yells out, easily redirectable, now watching tv, pct just assisted pt w changing his urine filled brief after multiple prompts to do so
--- NOTE | 2022-11-27 13:45 | PC.NURSE ---
rn to rn given to s1 rn
--- NOTE | 2022-11-27 15:51 | HO.PSYADMNOT ---
HPI Date of Service: 11/27/22 Chief Complaint: MOOD Sources of Information: patient interviewed, chart reviewed and crisis/core team assessment reviewed HPI Subjective Notes: Rm Warning and Conditional Voluntary Healthcare Proxy: Yes Narrative: The patient is a 67-year-old male, single, living on the intermediate facility very well known by the team since he had been admitted before with a long history of schizoaffective disorder bipolar type on Clozaril. According to the crisis assessment, the patient was recently admitted at [facility] from November 11 to November 22 and discharged back to his regular facility. While he was there, he was irrational laughing unable to focus, more disorganized than usual. He was rushed to the emergency room and assessed by the crisis team. While he was in the ED he was diagnosed with a UTI and antibiotics were started. On interview the patient is pleasantly confused, very cooperative and pleasant, recognized me and some of the staff members and he stated that he is doing well. Even though, he reported some grandiose delusions stating that he owns bending machines in [place]. He was able to contract for safety he is willing to follow treatment here. Usually, the patient does not have capacity to sign or take informed decisions and his healthcare proxy is his son who had been invoked several times. Past Psychiatric History: Inpatient: per [facility] documentation, multiple inpt admission since age 15 when he had first psychotic episode. Most recently at [facility] 2005; [facility] 2019. OP: [facility]any [facility] Past medication trial: lithium, clozaril. Medical Evaluation Reviewed: Yes [facility] Medical History Atrial fibrillation History of ETT Hypertension Hypothyroidism Obstructive sleep apnea PAF (paroxysmal atrial fibrillation) Schizoaffective disorder, bipolar type Surgical History H/O arthroscopic knee surgery H/O congenital atrial septal defect (ASD) repair Hx laparoscopic cholecystectomy Family History: Unknown Social History: chronically mentally ill, with several admissions into the hospital for psychotic episodes and probably long-term hospitalizations. At this moment, the patient resides at at intermediate facility. Substance History: Denies Trauma History: denies Diagnostics Vital Signs (24Hr): Vital Signs - 24 hr 11/26/22 19:50 11/27/22 06:05 11/27/22 07:56 Temperature 97.9 F Pulse Rate 78 86 Respiratory Rate 20 18 18 Blood Pressure 142/82 H 143/78 H Pulse Oximetry 98 97 Oxygen Delivery Method Room Air Room Air Room Air BMI result Body Mass Index 33.2 Labs 11/25/22 11:34 11/25/22 11:34 Meds/Allergies Meds Home Medications Medication Instructions Recorded Confirmed Type acetaminophen 650 mg tablet 650 mg PO Q6H PRN Pain 11/25/22 11/25/22 History apixaban 5 mg tablet 5 mg PO BID 11/25/22 11/25/22 History carvedilol 12.5 mg tablet 12.5 mg PO BID 11/25/22 11/25/22 History clotrimazole 1 % topical cream 1 appl topical BID 11/25/22 11/25/22 History clozapine 375 mg PO BEDTIME 11/25/22 11/25/22 History clozapine 50 mg tablet (Clozaril) 50 mg PO QAM 11/25/22 11/25/22 History gabapentin 100 mg capsule 100 mg PO Q8H PRN Anxiety 11/25/22 11/25/22 History gabapentin 100 mg capsule 100 mg PO TID 11/25/22 11/25/22 History lamotrigine 25 mg tablet (Lamictal) 50 mg PO BID 11/25/22 11/25/22 History levothyroxine 175 mcg tablet 175 mcg PO DAILY 11/25/22 11/25/22 History lithium carbonate 300 mg tablet 300 mg PO QAM 11/25/22 11/25/22 History lithium carbonate 600 mg capsule 600 mg PO BEDTIME 11/25/22 11/25/22 History melatonin 3 mg tablet 3 mg PO BEDTIME PRN Sleep 11/25/22 11/25/22 History nitrofurantoin macrocrystal 100 mg 100 mg PO BID 11/25/22 11/25/22 History capsule olanzapine 5 mg disintegrating 5 mg PO Q12H PRN Agitation 11/25/22 11/25/22 History tablet polyvinyl alcohol 1.4 % eye drops 1 drp ophthalmic-Right QID 11/25/22 11/25/22 History (Artificial Tears (polyvinyl alcohol)) trazodone 75 mg PO BEDTIME 11/25/22 11/25/22 History trazodone 50 mg tablet 25 mg PO DAILY PRN Sleep 11/25/22 11/25/22 History Allergies Allergies Allergy/AdvReac Type Severity Reaction Status Date / Time house dust Allergy Intermediate watery eyes Verified 08/20/21 11:33 adhesive Allergy Unknown Unknown Verified 10/15/21 14:32 fenofibrate Allergy Unknown Unknown Verified 10/15/21 14:32 Sulfa (Sulfonamide Allergy Unknown unknown Verified 10/15/21 14:32 Antibiotics) tomato Allergy Unknown Unknown Verified 10/15/21 14:32 Yeast Allergy Unknown Unknown Verified 10/15/21 14:32 zolpidem [From Ambien] Allergy Unknown Unknown Verified 10/15/21 14:32 lactose AdvReac Unknown Unknown Verified 10/15/21 14:32 Mental Status Exam Mental Status Exam Patient Appearance: Appropriate (On hospital gowns) Patient Orientation: Person Level of Consciousness: Awake and Appropriate Patient Behavior: Talkative, Cooperative and Passive Mood Description: Withdrawn Affect Description: Constricted Patient Cognition Impaired: Yes Ability to Follow Directions: Good Speech Pattern: Clear, Rapid and Loud Hallucinations: None Delusions: Grandiose Thought Process: Incoherent, Illogical and Distracted Thought Content: positive for [place] and positive for Loose Associations Judgement: Poor Assessment & Plan Assessment & Plan (1) Acute UTI: Status: Acute Code(s): N39.0 - Urinary tract infection, site not specified (2) Schizoaffective disorder, bipolar type: Status: Acute Code(s): F25.0 - Schizoaffective disorder, bipolar type Plan The patient is an elderly male, very well known by this team since he carries a diagnosis of schizoaffective disorder bipolar type, recently discharged from another inpatient unit, brought into the emergency room for disorganized behavior and grandiose delusions. While he was in the emergency room, I UTI had been diagnosed that he had been started with antibiotics. At this moment the patient looks manic with altered mental status but easily redirectable. Plan 1. Admit to geriatric inpatient psychiatric unit. 2. 50 minutes checks. 3. Continue with Clozaril and other medications. 4. Continue with antibiotics for UTI. 5. Gather collateral information. 6. Reassessment with results. Patient educated on: diagnosis Informed Consent: further education needed Reason for continued inpatient stay Substantial Risk for: inability to function, rapid decompensation and med/psych decompensation Statement Statement: I have reviewed the history and physical and performed a pertinent examination on my patient. No changes have occurred unless specified. If the History and Physical was not performed prior to admission, the Hospitalist's service will be consulted for completing the admission physical. Time Spent With Patient Time: Total time managing care of this patient today __45__ minutes.
[2022-11-27] MEDS: Artificial Tears 15 ML DROPS 1 DROP EYE-RIGHT ×2 (18:31→22:00)
--- NOTE | 2022-11-27 18:39 | PC.ADMIT ---
Pt. escorted onto unit from [facility] pod in ED via WC accompanied by RN and security. Pt. with long standing schizoaffective disorder, bipolar type. Has beeen residing in a [place], but was recently hospitalized at [facility] due to decompensation and continued to have bizarre and inapproriate behavior upon return to the senior living. Pt. was found to have a UTI and is currently on ABT. Pt. oriented only to self. Pt. in euphoric mood, recognizing some staff and introducing self with hand shakes to peers. Pt.'s thought pattern and speech highly disorganized, tangential, and delusional. Pt unable to participate in admission assmt. process. Pt. ambulatory without assistive devices. Good balance and steady gait. Pt. signed CV, but has son as invoked HCP, so son was contacted and gave witnessed verbal consent for CV by HCP and ROSANGELA for [place].
[2022-11-27] MEDS: traZODone HCL 25 MG HALFTAB 75 MG PO (22:00)
[2022-11-27] MEDS: cloZAPine 25 MG TABLET 75 MG PO (22:01)
[2022-11-27] MEDS: cloZAPine 100 MG TABLET 300 MG PO (22:02)
[2022-11-27] MEDS: Lithium Carbonate 300 MG CAPSULE 600 MG PO (22:07)
[2022-11-27 22:10] VITALS: BP 112/67; PULSE 78
[2022-11-27] MEDS: Clotrimazole 1 % Cream 15 GM TUBE 1 APPL TOPICAL (22:11)
[2022-11-28] MEDS: Levothyroxine Sodium 175 MCG TABLET PO (06:11)
[2022-11-28 07:22] LABS: Alanine Aminotransferase 15 U/L (0-40); Albumin Level 3.7 g/dL (3.5-5.0); Alkaline Phosphatase 92 U/L (39-117); Anion Gap 13 (12-20); Aspartate Amino Transferase 13 U/L (5-37); Bilirubin Total 0.5 mg/dL (0.0-1.0); Blood Urea Nitrogen 13 mg/dL (9-16); Carbon Dioxide 23 mmol/L (22-29); Chloride 109 mmol/L (96-108); Cholesterol 147 mg/dL; Creatinine Clr Calc Pharmacy 102.2; Estimated Glomerular Filt Rate > 60; Glucose Fasting 105 mg/dL (60-99); HDL Cholesterol 25 mg/dL; LDL Cholesterol Calculated 78 mg/dl; Potassium 4.3 mmol/L (3.3-5.1); Sodium 141 mmol/L (135-145); Total Protein 5.8 g/dL (6.5-8.0); Triglycerides 224 mg/dL
[2022-11-28] MEDS: lamoTRIgine 25 MG TABLET 50 MG PO ×2 (08:43→20:50)
[2022-11-28] MEDS: nitrofurantoin macrocrystaL 50 MG CAPSULE 100 MG PO ×2 (08:43→20:49)
[2022-11-28] MEDS: cloZAPine 25 MG TABLET 50 MG PO (08:43)
[2022-11-28] MEDS: Apixaban 5 MG TABLET PO ×2 (08:44→20:50)
[2022-11-28] MEDS: cephALEXin 500 MG CAPSULE PO ×4 (08:44→20:50)
[2022-11-28] MEDS: carvediloL 12.5 MG TABLET PO ×2 (08:44→20:50)
[2022-11-28] MEDS: Gabapentin 100 MG CAPSULE PO ×3 (08:44→20:50)
[2022-11-28] MEDS: Lithium Carbonate 300 MG CAPSULE PO (08:44)
[2022-11-28] MEDS: Clotrimazole 1 % Cream 15 GM TUBE 1 APPL TOPICAL ×2 (10:19→20:47)
[2022-11-28] MEDS: Artificial Tears 15 ML DROPS 1 DROP EYE-RIGHT ×4 (10:19→20:47)
[2022-11-28 18:00] VITALS: BP 160/82; PULSE 75; RESP 18; TEMP 36.4; O2SAT 97
--- NOTE | 2022-11-28 20:01 | HO.PSYCHPN ---
Subjective Subjective Date of Service: 11/28/22 Reason For Visit: MOOD Subjective Notes: Conditional Voluntary Healthcare Proxy: Yes Medical Problems Affecting Mental Status: Yes (UTI) Interim History: pt was admitted to [facility] 11/27 with a long history of schizoaffective disorder bipolar type on Clozaril.? According to the crisis assessment, the patient was recently admitted at [facility] from November 11 to November 22 and discharged back to his regular facility.? While he was there, he was irrational laughing unable to focus, more disorganized than usual.? He was rushed to the emergency room and assessed by the crisis team.? While he was in the ED he was diagnosed with a UTI and antibiotics were started.? On interview he is pleasantly confused, cooperative and pleasant. he reported some grandiose delusions stating that he owns vending machines in [place].?He is able to contract for safety he is willing to follow treatment here.? patient does not have capacity to sign or take informed decisions and his healthcare proxy is his son who had been invoked several times. Past Psychiatric History: [facility], multiple inpt admission since age 15 when he had first psychotic episode. Most recently at [facility] 2005; [facility] 2019. Medication Compliance: Yes Side effects from medications: No Attending Groups: Intermittent Review of Systems Acute medical concerns: Yes UTI on keflex Medical Review of Systems: unchanged Review of Systems Review of Systems Yes Unobtainable due to mental status Constitutional: Denies fever(s) Eyes: Denies eye discharge Denies neck mass Cardiovascular: Denies dyspnea and Denies dyspnea on exertion Respiratory: Denies dyspnea and Denies dyspnea on exertion Gastrointestinal: Denies vomiting Genitourinary: Reports no additional male genitourinary complaints, Denies hematuria, Denies oliguria, Denies difficulty urinating, Denies dysuria, Denies urinary frequency, Denies urinary hesitancy, Denies urinary incontinence and Denies urinary urgency Musculoskeletal: Reports no additional musculoskeletal complaints, Denies numbness and Denies tingling Reports confusion (chronic for patient), Reports memory loss (chronic for patient), Denies numbness and Denies tingling Psychiatric: Reports confusion (chronic for patient) and Reports memory loss (chronic for patient) Endocrine: Reports no additional endocrine complaints Hematologic/Lymphatic: Reports no additional hematologic/lymphatic complaints Allergic/Immunologic: Reports no additional allergic/immunologic complaints Mental Status Exam Mental Status Exam Patient Appearance: Appropriate (On hospital gowns) Patient Orientation: Person Level of Consciousness: Awake and Appropriate Patient Behavior: Talkative, Cooperative and Passive Mood Description: Withdrawn Affect Description: Constricted Patient Cognition Impaired: Yes Ability to Follow Directions: Good Speech Pattern: Clear, Rapid and Loud Thought Process: Confusion Thought Content: positive for Disorganized Judgement: Fair Diagnostics Vital Signs (24Hr): Vital Signs - 24 hr 11/27/22 22:10 Pulse Rate 78 Blood Pressure 112/67 BMI result Body Mass Index 33.2 Labs 11/25/22 11:34 11/28/22 06:41 Labs: Laboratory Results - last 48 hr 11/28/22 06:41 Sodium 141 Potassium 4.3 Chloride 109 H Carbon Dioxide 23 Anion Gap 13 BUN 13 Creatinine 0.89 Estim Creat Clear Calc 102.2 Estimated GFR > 60 Fasting Glucose 105 H Calcium 9.0 Total Bilirubin 0.5 AST 13 ALT 15 Alkaline Phosphatase 92 Total Protein 5.8 L Albumin 3.7 Triglycerides 224 Cholesterol 147 LDL Cholesterol, Calc 78 HDL Cholesterol 25 Medications Medications Current Medications Acetaminophen (Acetaminophen 325 Mg Tablet) 650 mg PO Q6H PRN PRN Reason: Pain Al Hydroxide/Mg Hydroxide (Magnesium Hydrox/Alum Hydrox 30 Ml Oral.Susp) 30 ml PO Q6H PRN PRN Reason: Heartburn/Nausea Apixaban (Apixaban 5 Mg Tablet) 5 mg PO BID COUNTS INCLUDE 234 BEDS AT THE [facility] Last Admin: 11/28/22 08:44 Dose: 5 mg Artificial Tears (Artificial Tears 15 Ml Drops) 1 drop EYE-RIGHT QID COUNTS INCLUDE 234 BEDS AT THE [facility] Last Admin: 11/28/22 17:04 Dose: 1 drop Carvedilol (Carvedilol 12.5 Mg Tablet) 12.5 mg PO BID COUNTS INCLUDE 234 BEDS AT THE [facility]; Protocol Last Admin: 11/28/22 08:44 Dose: 12.5 mg Cephalexin HCl (Cephalexin 500 Mg Capsule) 500 mg PO QID COUNTS INCLUDE 234 BEDS AT THE [facility] Stop: 12/01/22 23:59 Last Admin: 11/28/22 17:04 Dose: 500 mg Clotrimazole (Clotrimazole 1 % Cream 15 Gm Tube) 1 appl TOPICAL BID COUNTS INCLUDE 234 BEDS AT THE [facility]; Protocol Last Admin: 11/28/22 10:19 Dose: 1 appl Clozapine (Clozapine 100 Mg Tablet) 300 mg PO BEDTIME COUNTS INCLUDE 234 BEDS AT THE [facility] Last Admin: 11/27/22 22:02 Dose: 300 mg Clozapine (Clozapine 25 Mg Tablet) 50 mg PO DAILY COUNTS INCLUDE 234 BEDS AT THE [facility] Last Admin: 11/28/22 08:43 Dose: 50 mg Clozapine (Clozapine 25 Mg Tablet) 75 mg PO BEDTIME COUNTS INCLUDE 234 BEDS AT THE [facility] Last Admin: 11/27/22 22:01 Dose: 75 mg Gabapentin (Gabapentin 100 Mg Capsule) 100 mg PO Q8H PRN PRN Reason: Anxiety Gabapentin (Gabapentin 100 Mg Capsule) 100 mg PO TID COUNTS INCLUDE 234 BEDS AT THE [facility] Last Admin: 11/28/22 14:22 Dose: 100 mg Hydroxyzine HCl (Hydroxyzine Hcl 25 Mg Tablet) 25 mg PO Q6H PRN PRN Reason: Anxiety Lamotrigine (Lamotrigine 25 Mg Tablet) 50 mg PO BID COUNTS INCLUDE 234 BEDS AT THE [facility] Last Admin: 11/28/22 08:43 Dose: 50 mg Levothyroxine Sodium (Levothyroxine Sodium 175 Mcg Tablet) 175 mcg PO DAILY@0600 COUNTS INCLUDE 234 BEDS AT THE [facility] Last Admin: 11/28/22 06:11 Dose: 175 mcg [place] Carbonate ([place] Carbonate 300 Mg Capsule) 300 mg PO DAILY COUNTS INCLUDE 234 BEDS AT THE [facility] Last Admin: 11/28/22 08:44 Dose: 300 mg [place] Carbonate ([place] Carbonate 300 Mg Capsule) 600 mg PO BEDTIME COUNTS INCLUDE 234 BEDS AT THE [facility] Last Admin: 11/27/22 22:07 Dose: 600 mg Magnesium Hydroxide (Milk Of Magnesia 30 Ml Oral.Susp) 30 ml PO DAILY PRN PRN Reason: Constipation Melatonin (Melatonin 3 Mg Tablet) 3 mg PO BEDTIME PRN PRN Reason: Sleep Nitrofurantoin Macrocrystals (Nitrofurantoin Macrocrystal 50 Mg Capsule) 100 mg PO BID COUNTS INCLUDE 234 BEDS AT THE [facility] Last Admin: 11/28/22 08:43 Dose: 100 mg Olanzapine (Olanzapine 5 Mg Tablet) 5 mg PO Q12H PRN PRN Reason: Agitation Trazodone HCl (Trazodone Hcl 25 Mg Halftab) 75 mg PO BEDTIME COUNTS INCLUDE 234 BEDS AT THE [facility] Last Admin: 11/27/22 22:00 Dose: 75 mg Trazodone HCl (Trazodone Hcl 50 Mg Tablet) 50 mg PO BEDTIME MRX1 PRN PRN Reason: Insomnia Allergies Allergies Allergy/AdvReac Type Severity Reaction Status Date / Time house dust Allergy Intermediate watery eyes Verified 08/20/21 11:33 adhesive Allergy Unknown Unknown Verified 10/15/21 14:32 fenofibrate Allergy Unknown Unknown Verified 10/15/21 14:32 Sulfa (Sulfonamide Allergy Unknown unknown Verified 10/15/21 14:32 Antibiotics) tomato Allergy Unknown Unknown Verified 10/15/21 14:32 Yeast Allergy Unknown Unknown Verified 10/15/21 14:32 zolpidem [From Ambien] Allergy Unknown Unknown Verified 10/15/21 14:32 lactose AdvReac Unknown Unknown Verified 10/15/21 14:32 Assessment & Plan Assessment & Plan (1) Acute UTI: Status: Acute Code(s): N39.0 - Urinary tract infection, site not specified (2) Schizoaffective disorder, bipolar type: Status: Acute Code(s): F25.0 - Schizoaffective disorder, bipolar type Plan The patient is an elderly male, very well known by this team since he carries a diagnosis of schizoaffective disorder bipolar type, recently discharged from another inpatient unit, brought into the emergency room for disorganized behavior and grandiose delusions. While he was in the emergency room, I UTI had been diagnosed that he had been started with antibiotics. At this moment the patient looks manic with altered mental status but easily redirectable. Plan 1. Admit to geriatric inpatient psychiatric unit. 2. 50 minutes checks. 3. Continue with Clozaril and other medications. 4. Continue with antibiotics for UTI. 5. Gather collateral information. 6. Reassessment with results. 11/28 Continue current treatment plan Reason for contiued inpatient stay Substantial Risk for: inability to function and med/psych decompensation Time Spent With Patient Time: Total time managing care of this patient today ____ minutes.
[2022-11-28] MEDS: cloZAPine 100 MG TABLET 300 MG PO (20:48)
[2022-11-28] MEDS: traZODone HCL 25 MG HALFTAB 75 MG PO (20:48)
[2022-11-28] MEDS: cloZAPine 25 MG TABLET 75 MG PO (20:48)
[2022-11-28] MEDS: Lithium Carbonate 300 MG CAPSULE 600 MG PO (20:49)
[2022-11-28] MEDS: traZODone HCL 50 MG TABLET PO (20:49)
[2022-11-28] MEDS: Melatonin 3 MG TABLET PO (20:50)
[2022-11-29] MEDS: Levothyroxine Sodium 175 MCG TABLET PO (06:04)
[2022-11-29 09:06] VITALS: BP 153/82; PULSE 77; RESP 16; TEMP 36.4; O2SAT 98
[2022-11-29] MEDS: nitrofurantoin macrocrystaL 50 MG CAPSULE 100 MG PO (09:10)
[2022-11-29] MEDS: carvediloL 12.5 MG TABLET PO ×2 (09:10→20:19)
[2022-11-29] MEDS: cephALEXin 500 MG CAPSULE PO ×4 (09:11→20:19)
[2022-11-29] MEDS: Apixaban 5 MG TABLET PO ×2 (09:11→20:19)
[2022-11-29] MEDS: cloZAPine 25 MG TABLET 50 MG PO (09:11)
[2022-11-29] MEDS: Gabapentin 100 MG CAPSULE PO ×3 (09:11→20:18)
[2022-11-29] MEDS: Lithium Carbonate 300 MG CAPSULE PO (09:12)
[2022-11-29] MEDS: lamoTRIgine 25 MG TABLET 50 MG PO ×2 (09:12→20:19)
[2022-11-29] MEDS: Clotrimazole 1 % Cream 15 GM TUBE 1 APPL TOPICAL ×2 (09:13→20:27)
[2022-11-29] MEDS: Artificial Tears 15 ML DROPS 1 DROP EYE-RIGHT ×4 (09:13→20:24)
--- NOTE | 2022-11-29 14:07 | HO.PSYCHPN ---
Subjective Subjective Date of Service: 11/29/22 Reason For Visit: MOOD Subjective Notes: Conditional Voluntary Healthcare Proxy: Yes Medical Problems Affecting Mental Status: Yes (UTI) Interim History: pt was admitted to [facility] 11/27 with a long history of schizoaffective disorder bipolar type on Clozaril.? According to the crisis assessment, the patient was recently admitted at [facility] from November 11 to November 22 and discharged back to his regular facility.? While he was there, he was irrational laughing unable to focus, more disorganized than usual.? He was rushed to the emergency room and assessed by the crisis team.? While he was in the ED he was diagnosed with a UTI and antibiotics were started.? Pt is pleasantly confused, cooperative and pleasant. Calmer today. 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 patient does not have capacity to sign or take informed decisions and his healthcare proxy is his son who had been invoked several times. Past Psychiatric History: Inpatient: per [facility] documentation, multiple inpt admission since age 15 when he had first psychotic episode. Most recently at [facility] 2005; [facility] 2019. Medication Compliance: Yes Side effects from medications: No Attending Groups: Intermittent Review of Systems Acute medical concerns: Yes UTI Review of Systems Review of Systems Yes Unobtainable due to mental status Constitutional: Denies fever(s) Eyes: Denies eye discharge Denies neck mass Cardiovascular: Denies dyspnea and Denies dyspnea on exertion Respiratory: Denies dyspnea and Denies dyspnea on exertion Gastrointestinal: Denies vomiting Genitourinary: Reports no additional male genitourinary complaints, Denies hematuria, Denies oliguria, Denies difficulty urinating, Denies dysuria, Denies urinary frequency, Denies urinary hesitancy, Denies urinary incontinence and Denies urinary urgency Musculoskeletal: Reports no additional musculoskeletal complaints, Denies numbness and Denies tingling Reports confusion (chronic for patient), Reports memory loss (chronic for patient), Denies numbness and Denies tingling Psychiatric: Reports confusion (chronic for patient) and Reports memory loss (chronic for patient) Endocrine: Reports no additional endocrine complaints Hematologic/Lymphatic: Reports no additional hematologic/lymphatic complaints Allergic/Immunologic: Reports no additional allergic/immunologic complaints Mental Status Exam Mental Status Exam Patient Appearance: Appropriate (On hospital gowns) Patient Orientation: Person Level of Consciousness: Awake and Appropriate Patient Behavior: Talkative, Cooperative and Passive Mood Description: Withdrawn Affect Description: Constricted Patient Cognition Impaired: Yes Ability to Follow Directions: Good Speech Pattern: Clear, Rapid and Loud Delusions: Grandiose Thought Process: Incoherent and Illogical Thought Content: positive for Disorganized Judgement: Fair Diagnostics Vital Signs (24Hr): Vital Signs - 24 hr 11/28/22 18:00 11/29/22 09:06 Temperature 97.5 F 97.6 F Pulse Rate 75 77 Respiratory Rate 18 16 Blood Pressure 160/82 H 153/82 H Pulse Oximetry 97 98 Oxygen Delivery Method Room Air Room Air BMI result Body Mass Index 33.2 Labs 11/25/22 11:34 11/28/22 06:41 Labs: Laboratory Results - last 48 hr 11/28/22 06:41 Sodium 141 Potassium 4.3 Chloride 109 H Carbon Dioxide 23 Anion Gap 13 BUN 13 Creatinine 0.89 Estim Creat Clear Calc 102.2 Estimated GFR > 60 Fasting Glucose 105 H Calcium 9.0 Total Bilirubin 0.5 AST 13 ALT 15 Alkaline Phosphatase 92 Total Protein 5.8 L Albumin 3.7 Triglycerides 224 Cholesterol 147 LDL Cholesterol, Calc 78 HDL Cholesterol 25 Medications Medications Current Medications Acetaminophen (Acetaminophen 325 Mg Tablet) 650 mg PO Q6H PRN PRN Reason: Pain Al Hydroxide/Mg Hydroxide (Magnesium Hydrox/Alum Hydrox 30 Ml Oral.Susp) 30 ml PO Q6H PRN PRN Reason: Heartburn/Nausea Apixaban (Apixaban 5 Mg Tablet) 5 mg PO BID [facility] Last Admin: 11/29/22 09:11 Dose: 5 mg Artificial Tears (Artificial Tears 15 Ml Drops) 1 drop EYE-RIGHT QID [facility] Last Admin: 11/29/22 09:13 Dose: 1 drop Carvedilol (Carvedilol 12.5 Mg Tablet) 12.5 mg PO BID [facility]; Protocol Last Admin: 11/29/22 09:10 Dose: 12.5 mg Cephalexin HCl (Cephalexin 500 Mg Capsule) 500 mg PO QID [facility] Stop: 12/01/22 23:59 Last Admin: 11/29/22 09:11 Dose: 500 mg Clotrimazole (Clotrimazole 1 % Cream 15 Gm Tube) 1 appl TOPICAL BID [facility]; Protocol Last Admin: 11/29/22 09:13 Dose: 1 appl Clozapine (Clozapine 100 Mg Tablet) 300 mg PO BEDTIME [facility] Last Admin: 11/28/22 20:48 Dose: 300 mg Clozapine (Clozapine 25 Mg Tablet) 50 mg PO DAILY [facility] Last Admin: 11/29/22 09:11 Dose: 50 mg Clozapine (Clozapine 25 Mg Tablet) 75 mg PO BEDTIME [facility] Last Admin: 11/28/22 20:48 Dose: 75 mg Gabapentin (Gabapentin 100 Mg Capsule) 100 mg PO Q8H PRN PRN Reason: Anxiety Gabapentin (Gabapentin 100 Mg Capsule) 100 mg PO TID [facility] Last Admin: 11/29/22 09:11 Dose: 100 mg Hydroxyzine HCl (Hydroxyzine Hcl 25 Mg Tablet) 25 mg PO Q6H PRN PRN Reason: Anxiety Lamotrigine (Lamotrigine 25 Mg Tablet) 50 mg PO BID [facility] Last Admin: 11/29/22 09:12 Dose: 50 mg Levothyroxine Sodium (Levothyroxine Sodium 175 Mcg Tablet) 175 mcg PO DAILY@0600 [facility] Last Admin: 11/29/22 06:04 Dose: 175 mcg [place] Carbonate ([place] Carbonate 300 Mg Capsule) 300 mg PO DAILY [facility] Last Admin: 11/29/22 09:12 Dose: 300 mg [place] Carbonate ([place] Carbonate 300 Mg Capsule) 600 mg PO BEDTIME [facility] Last Admin: 11/28/22 20:49 Dose: 600 mg Magnesium Hydroxide (Milk Of Magnesia 30 Ml Oral.Susp) 30 ml PO DAILY PRN PRN Reason: Constipation Melatonin (Melatonin 3 Mg Tablet) 3 mg PO BEDTIME PRN PRN Reason: Sleep Last Admin: 11/28/22 20:50 Dose: 3 mg Nitrofurantoin Macrocrystals (Nitrofurantoin Macrocrystal 50 Mg Capsule) 100 mg PO BID [facility] Last Admin: 11/29/22 09:10 Dose: 100 mg Olanzapine (Olanzapine 5 Mg Tablet) 5 mg PO Q12H PRN PRN Reason: Agitation Trazodone HCl (Trazodone Hcl 25 Mg Halftab) 75 mg PO BEDTIME [facility] Last Admin: 11/28/22 20:48 Dose: 75 mg Trazodone HCl (Trazodone Hcl 50 Mg Tablet) 50 mg PO BEDTIME MRX1 PRN PRN Reason: Insomnia Last Admin: 11/28/22 20:49 Dose: 50 mg Allergies Allergies Allergy/AdvReac Type Severity Reaction Status Date / Time house dust Allergy Intermediate watery eyes Verified 08/20/21 11:33 adhesive Allergy Unknown Unknown Verified 10/15/21 14:32 fenofibrate Allergy Unknown Unknown Verified 10/15/21 14:32 Sulfa (Sulfonamide Allergy Unknown unknown Verified 10/15/21 14:32 Antibiotics) tomato Allergy Unknown Unknown Verified 10/15/21 14:32 Yeast Allergy Unknown Unknown Verified 10/15/21 14:32 zolpidem [From Ambien] Allergy Unknown Unknown Verified 10/15/21 14:32 lactose AdvReac Unknown Unknown Verified 10/15/21 14:32 Assessment & Plan Assessment & Plan (1) Acute UTI: Status: Acute Code(s): N39.0 - Urinary tract infection, site not specified (2) Schizoaffective disorder, bipolar type: Status: Acute Code(s): F25.0 - Schizoaffective disorder, bipolar type Plan The patient is an elderly male, very well known by this team since he carries a diagnosis of schizoaffective disorder bipolar type, recently discharged from another inpatient unit, brought into the emergency room for disorganized behavior and grandiose delusions. While he was in the emergency room, I UTI had been diagnosed that he had been started with antibiotics. At this moment the patient looks manic with altered mental status but easily redirectable. Plan 1. Admit to geriatric inpatient psychiatric unit. 2. 50 minutes checks. 3. Continue with Clozaril and other medications. 4. Continue with antibiotics for UTI. 5. Gather collateral information. 6. Reassessment with results. / contnue current treatment plan Reason for contiued inpatient stay Substantial Risk for: inability to function and med/psych decompensation Time Spent With Patient Time: Total time managing care of this patient today ____ minutes.
[2022-11-29 18:00] VITALS: BP 166/89; PULSE 86; RESP 18; TEMP 36.9; O2SAT 97
[2022-11-29] MEDS: cloZAPine 25 MG TABLET 75 MG PO (20:18)
[2022-11-29] MEDS: traZODone HCL 25 MG HALFTAB 75 MG PO (20:18)
[2022-11-29] MEDS: Lithium Carbonate 300 MG CAPSULE 600 MG PO (20:18)
[2022-11-29] MEDS: Acetaminophen 325 MG TABLET 650 MG PO (20:19)
[2022-11-29] MEDS: cloZAPine 100 MG TABLET 300 MG PO (20:20)
[2022-11-30] MEDS: Levothyroxine Sodium 175 MCG TABLET PO (05:43)
[2022-11-30 08:40] VITALS: BP 118/63; PULSE 83; RESP 18; TEMP 37.1; O2SAT 97
[2022-11-30] MEDS: Apixaban 5 MG TABLET PO ×2 (09:01→20:14)
[2022-11-30] MEDS: Lithium Carbonate 300 MG CAPSULE PO (09:01)
[2022-11-30] MEDS: lamoTRIgine 25 MG TABLET 50 MG PO ×2 (09:01→20:16)
[2022-11-30] MEDS: cephALEXin 500 MG CAPSULE PO ×4 (09:01→20:14)
[2022-11-30] MEDS: cloZAPine 25 MG TABLET 50 MG PO (09:02)
[2022-11-30] MEDS: carvediloL 12.5 MG TABLET PO ×2 (09:02→20:19)
[2022-11-30] MEDS: Gabapentin 100 MG CAPSULE PO ×3 (09:04→20:17)
[2022-11-30] MEDS: Artificial Tears 15 ML DROPS 1 DROP EYE-RIGHT ×3 (10:53→16:58)
[2022-11-30] MEDS: Clotrimazole 1 % Cream 15 GM TUBE 1 APPL TOPICAL (10:56)
--- NOTE | 2022-11-30 11:40 | HO.PSYCHPN ---
Subjective Subjective Date of Service: 11/30/22 Reason For Visit: MOOD Subjective Notes: Conditional Voluntary Interim History: The nursing staff reported the patient has been pleasant, cooperative but delusional. He had been disorganized but not as the compensated the has him before. He is easily redirectable. On interview the patient denies new symptoms he is pleasantly confused. We will order blood work and a UA for tomorrow morning to see how he has evolved on his infection. Mental Status Exam Mental Status Exam Patient Appearance: Well Grooomed and Appropriate Patient Orientation: Person and Situation Level of Consciousness: Awake and Appropriate Patient Behavior: Guarded and Passive Mood Description: Withdrawn and Constricted Affect Description: Calm Patient Cognition Impaired: Yes Ability to Follow Directions: Fair Speech Pattern: Clear Hallucinations: Auditory Delusions: Grandiose and Bizarre Thought Process: Illogical and Distracted Thought Content: positive for [place], positive for Poverty of Content, positive for Thought Blocking and positive for Logical Judgement: Poor Diagnostics Vital Signs (24Hr): Vital Signs - 24 hr 11/29/22 18:00 11/30/22 08:40 Temperature 98.5 F 98.7 F Pulse Rate 86 83 Respiratory Rate 18 18 Blood Pressure 166/89 H 118/63 Pulse Oximetry 97 97 Oxygen Delivery Method Room Air Room Air BMI result Body Mass Index 33.2 Labs 11/25/22 11:34 11/28/22 06:41 Medications Medications Current Medications Acetaminophen (Acetaminophen 325 Mg Tablet) 650 mg PO Q6H PRN PRN Reason: Pain Last Admin: 11/29/22 20:19 Dose: 650 mg Al Hydroxide/Mg Hydroxide (Magnesium Hydrox/Alum Hydrox 30 Ml Oral.Susp) 30 ml PO Q6H PRN PRN Reason: Heartburn/Nausea Apixaban (Apixaban 5 Mg Tablet) 5 mg PO BID [facility] Last Admin: 11/30/22 09:01 Dose: 5 mg Artificial Tears (Artificial Tears 15 Ml Drops) 1 drop EYE-RIGHT QID [facility] Last Admin: 11/30/22 10:53 Dose: 1 drop Carvedilol (Carvedilol 12.5 Mg Tablet) 12.5 mg PO BID [facility]; Protocol Last Admin: 11/30/22 09:02 Dose: 12.5 mg Cephalexin HCl (Cephalexin 500 Mg Capsule) 500 mg PO QID [facility] Stop: 12/01/22 23:59 Last Admin: 11/30/22 09:01 Dose: 500 mg Clotrimazole (Clotrimazole 1 % Cream 15 Gm Tube) 1 appl TOPICAL BID [facility]; Protocol Last Admin: 11/30/22 10:56 Dose: 1 appl Clozapine (Clozapine 100 Mg Tablet) 300 mg PO BEDTIME [facility] Last Admin: 11/29/22 20:20 Dose: 300 mg Clozapine (Clozapine 25 Mg Tablet) 50 mg PO DAILY [facility] Last Admin: 11/30/22 09:02 Dose: 50 mg Clozapine (Clozapine 25 Mg Tablet) 75 mg PO BEDTIME [facility] Last Admin: 11/29/22 20:18 Dose: 75 mg Gabapentin (Gabapentin 100 Mg Capsule) 100 mg PO Q8H PRN PRN Reason: Anxiety Gabapentin (Gabapentin 100 Mg Capsule) 100 mg PO TID [facility] Last Admin: 11/30/22 09:04 Dose: 100 mg Hydroxyzine HCl (Hydroxyzine Hcl 25 Mg Tablet) 25 mg PO Q6H PRN PRN Reason: Anxiety Lamotrigine (Lamotrigine 25 Mg Tablet) 50 mg PO BID [facility] Last Admin: 11/30/22 09:01 Dose: 50 mg Levothyroxine Sodium (Levothyroxine Sodium 175 Mcg Tablet) 175 mcg PO DAILY@0600 [facility] Last Admin: 11/30/22 05:43 Dose: 175 mcg [place] Carbonate ([place] Carbonate 300 Mg Capsule) 300 mg PO DAILY [facility] Last Admin: 11/30/22 09:01 Dose: 300 mg [place] Carbonate ([place] Carbonate 300 Mg Capsule) 600 mg PO BEDTIME [facility] Last Admin: 11/29/22 20:18 Dose: 600 mg Magnesium Hydroxide (Milk Of Magnesia 30 Ml Oral.Susp) 30 ml PO DAILY PRN PRN Reason: Constipation Melatonin (Melatonin 3 Mg Tablet) 3 mg PO BEDTIME PRN PRN Reason: Sleep Last Admin: 11/28/22 20:50 Dose: 3 mg Olanzapine (Olanzapine 5 Mg Tablet) 5 mg PO Q12H PRN PRN Reason: Agitation Trazodone HCl (Trazodone Hcl 25 Mg Halftab) 75 mg PO BEDTIME [facility] Last Admin: 11/29/22 20:18 Dose: 75 mg Trazodone HCl (Trazodone Hcl 50 Mg Tablet) 50 mg PO BEDTIME MRX1 PRN PRN Reason: Insomnia Last Admin: 11/28/22 20:49 Dose: 50 mg Allergies Allergies Allergy/AdvReac Type Severity Reaction Status Date / Time house dust Allergy Intermediate watery eyes Verified 08/20/21 11:33 adhesive Allergy Unknown Unknown Verified 10/15/21 14:32 fenofibrate Allergy Unknown Unknown Verified 10/15/21 14:32 Sulfa (Sulfonamide Allergy Unknown unknown Verified 10/15/21 14:32 Antibiotics) tomato Allergy Unknown Unknown Verified 10/15/21 14:32 Yeast Allergy Unknown Unknown Verified 10/15/21 14:32 zolpidem [From Ambien] Allergy Unknown Unknown Verified 10/15/21 14:32 lactose AdvReac Unknown Unknown Verified 10/15/21 14:32 Assessment & Plan Assessment & Plan (1) Acute UTI: Status: Acute Code(s): N39.0 - Urinary tract infection, site not specified (2) Schizoaffective disorder, bipolar type: Status: Acute Code(s): F25.0 - Schizoaffective disorder, bipolar type Plan The patient is an elderly male, very well known by this team since he carries a diagnosis of schizoaffective disorder bipolar type, recently discharged from another inpatient unit, brought into the emergency room for disorganized behavior and grandiose delusions. While he was in the emergency room, I UTI had been diagnosed that he had been started with antibiotics. At this moment the patient looks manic with altered mental status but easily redirectable. Plan 1. Admit to geriatric inpatient psychiatric unit. 2. 50 minutes checks. 3. Continue with Clozaril and other medications. 4. Continue with antibiotics for UTI. 5. Gather collateral information. 6. Reassessment with results. 7. UA and basic metabolic panel with CBC with differential for tomorrow. Reason for contiued inpatient stay Substantial Risk for: inability to function, rapid decompensation and med/psych decompensation Time Spent With Patient Time: Total time managing care of this patient today __20__ minutes.
[2022-11-30] MEDS: Acetaminophen 325 MG TABLET 650 MG PO (12:20)
[2022-11-30 18:00] VITALS: BP 126/62; PULSE 69; RESP 16; TEMP 37.2; O2SAT 96
[2022-11-30] MEDS: Lithium Carbonate 300 MG CAPSULE 600 MG PO (20:14)
[2022-11-30 20:15] VITALS: BP 134/79; PULSE 76; RESP 16; O2SAT 97
[2022-11-30] MEDS: traZODone HCL 25 MG HALFTAB 75 MG PO (20:15)
[2022-11-30] MEDS: cloZAPine 100 MG TABLET 300 MG PO (20:17)
[2022-11-30] MEDS: cloZAPine 25 MG TABLET 75 MG PO (20:18)
[2022-12-01] MEDS: Levothyroxine Sodium 175 MCG TABLET PO (06:12)
[2022-12-01 08:11] LABS: MANUAL DIFF FLAG NO
[2022-12-01 08:19] LABS: Basophils Percent Auto 0.4 % (0-2); Eosinophils Absolute Auto 0.3 X10*3/uL (0.0-0.4); Hematocrit 37.5 % (42.0-52.0); Hemoglobin 12.1 g/dl (14.0-18.0); Imm Gran Abs Auto 0.03 X10*3/uL (0.00-0.03); Imm Gran Pct Auto 0.3 % (0.0-0.4); Lymphocytes Absolute Auto 1.3 X10*3/uL (1.2-4.9); Lymphocytes Percent Auto 13.3 % (20-40); Mean Corpuscular HGB Conc 32.3 g/dl (31.0-36.0); Mean Corpuscular Hemoglobin 28.5 pg (27.0-33.0); Mean Corpuscular Volume 88.2 fL (80.0-98.0); Mean Platelet Volume 9.9 fL (9.4-12.4); Monocytes Percent Auto 9.5 % (2-11); Neutrophils Absolute Auto 7.4 x10*3/uL (2.0-8.3); Neutrophils Percent Auto 73.5 % (45-73); Platelet Count 363 X10*3/uL (160-400); Red Blood Count 4.25 X10*6/uL (4.60-5.80); Red Cell Distribution Width 13.3 % (11.0-16.0)
[2022-12-01 08:25] LABS: Estimated Average Glucose 100 mg/dL; Hemoglobin A1c % 5.1 %
[2022-12-01 08:33] LABS: Anion Gap 11 (12-20); Blood Urea Nitrogen 10 mg/dL (9-16); Carbon Dioxide 23 mmol/L (22-29); Chloride 109 mmol/L (96-108); Cholesterol 156 mg/dL; Creatinine Clr Calc Pharmacy 96.8; Estimated Glomerular Filt Rate > 60; Glucose Random 106 mg/dL (60-115); HDL Cholesterol 25 mg/dL; LDL Cholesterol Calculated 80 mg/dl; Potassium 3.9 mmol/L (3.3-5.1); Sodium 139 mmol/L (135-145); Triglycerides 258 mg/dL
[2022-12-01] MEDS: cloZAPine 25 MG TABLET 50 MG PO (08:55)
[2022-12-01] MEDS: carvediloL 12.5 MG TABLET PO ×2 (08:55→20:18)
[2022-12-01] MEDS: cephALEXin 500 MG CAPSULE PO ×4 (08:56→20:16)
[2022-12-01] MEDS: Gabapentin 100 MG CAPSULE PO ×3 (08:56→20:17)
[2022-12-01] MEDS: lamoTRIgine 25 MG TABLET 50 MG PO ×2 (08:56→20:17)
[2022-12-01] MEDS: Lithium Carbonate 300 MG CAPSULE PO (08:56)
[2022-12-01] MEDS: Apixaban 5 MG TABLET PO ×2 (08:56→20:16)
[2022-12-01 09:00] VITALS: BP 157/79; PULSE 74; RESP 18; TEMP 36.3; O2SAT 95
--- NOTE | 2022-12-01 11:56 | P.PNPSI_ITS ---
Subjective Subjective Date of Service: 12/01/22 Reason For Visit: MOOD Subjective Notes: Conditional Voluntary Interim History: The nursing staff reported the patient has been disorganized, incontinent of urine at times at baseline. He had been will pleasant and easily redirectable. The staff knows him from previous admission he seems to be at baseline not manic as usual. Still very disorganized unable to provide a urine sample. On interview he was pleasantly confused easily redirectable, very happy to be here Mental Status Exam Mental Status Exam Patient Appearance: Well Grooomed and Appropriate Patient Orientation: Person and Situation Level of Consciousness: Awake and Appropriate Patient Behavior: Appropriate Mood Description: Withdrawn and Constricted Affect Description: Labile Patient Cognition Impaired: Yes Ability to Follow Directions: Good Speech Pattern: Clear Hallucinations: None Delusions: Paranoid Ideation Thought Process: Disoriented, Incoherent and Illogical Thought Content: positive for [place], positive for Poverty of Content, positive for [place]ose [place] and positive for Tangential Judgement: Poor Diagnostics Vital Signs (24Hr): Vital Signs - 24 hr 11/30/22 18:00 11/30/22 20:15 12/01/22 09:00 Temperature 98.9 F 97.4 F Pulse Rate 69 76 74 Respiratory Rate 16 16 18 Blood Pressure 126/62 134/79 157/79 H Pulse Oximetry 96 97 95 Oxygen Delivery Method Room Air Room Air Room Air BMI result Body Mass Index 33.2 Labs 12/01/22 08:08 12/01/22 08:08 Labs: Laboratory Results - last 48 hr 12/01/22 12/01/22 12/01/22 08:08 08:08 08:08 WBC 10.0 RBC 4.25 L Hgb 12.1 L Hct 37.5 L MCV 88.2 MCH 28.5 MCHC 32.3 RDW 13.3 Plt Count 363 MPV 9.9 Immature Gran % (Auto) 0.3 Neut % (Auto) 73.5 H Lymph % (Auto) 13.3 L [place] % (Auto) 9.5 Eos % (Auto) 3.0 Baso % (Auto) 0.4 Lymph # (Auto) 1.3 [place] # (Auto) 1.0 Eos # (Auto) 0.3 Baso # (Auto) 0.0 Abs Immat Gran (auto) 0.03 Absolute Neuts (auto) 7.4 Absolute Nucleated RBC 0.000 Nucleated RBC % (auto) 0.0 Sodium 139 Potassium 3.9 Chloride 109 H Carbon Dioxide 23 Anion Gap 11 L BUN 10 Creatinine 0.94 Estim Creat Clear Calc 96.8 Estimated GFR > 60 Random Glucose 106 Estimat Average Glucose 100 Hemoglobin A1c % 5.1 Calcium 9.0 Triglycerides 258 Cholesterol 156 LDL Cholesterol, Calc 80 HDL Cholesterol 25 Medications Medications Current Medications Acetaminophen (Acetaminophen 325 Mg Tablet) 650 mg PO Q6H PRN PRN Reason: Pain Last Admin: 11/30/22 12:20 Dose: 650 mg Al Hydroxide/Mg Hydroxide (Magnesium Hydrox/Alum Hydrox 30 Ml Oral.Susp) 30 ml PO Q6H PRN PRN Reason: Heartburn/Nausea Apixaban (Apixaban 5 Mg Tablet) 5 mg PO BID [facility] Last Admin: 12/01/22 08:56 Dose: 5 mg Artificial Tears (Artificial Tears 15 Ml Drops) 1 drop EYE-RIGHT QID [facility] Last Admin: 12/01/22 11:02 Dose: Not Given Carvedilol (Carvedilol 12.5 Mg Tablet) 12.5 mg PO BID [facility]; Protocol Last Admin: 12/01/22 08:55 Dose: 12.5 mg Cephalexin HCl (Cephalexin 500 Mg Capsule) 500 mg PO QID [facility] Stop: 12/01/22 23:59 Last Admin: 12/01/22 08:56 Dose: 500 mg Clozapine (Clozapine 100 Mg Tablet) 300 mg PO BEDTIME [facility] Last Admin: 11/30/22 20:17 Dose: 300 mg Clozapine (Clozapine 25 Mg Tablet) 50 mg PO DAILY [facility] Last Admin: 12/01/22 08:55 Dose: 50 mg Clozapine (Clozapine 25 Mg Tablet) 75 mg PO BEDTIME [facility] Last Admin: 11/30/22 20:18 Dose: 75 mg Gabapentin (Gabapentin 100 Mg Capsule) 100 mg PO Q8H PRN PRN Reason: Anxiety Gabapentin (Gabapentin 100 Mg Capsule) 100 mg PO TID [facility] Last Admin: 12/01/22 08:56 Dose: 100 mg Hydrocortisone (Hydrocortisone 1 % Cream 28.35 Gm Tube) 1 appl TOPICAL BID [facility]; Protocol Last Admin: 12/01/22 11:03 Dose: Not Given Hydroxyzine HCl (Hydroxyzine Hcl 25 Mg Tablet) 25 mg PO Q6H PRN PRN Reason: Anxiety Lamotrigine (Lamotrigine 25 Mg Tablet) 50 mg PO BID [facility] Last Admin: 12/01/22 08:56 Dose: 50 mg Levothyroxine Sodium (Levothyroxine Sodium 175 Mcg Tablet) 175 mcg PO JOCELYNE Y@0600 [facility] Last Admin: 12/01/22 06:12 Dose: 175 mcg [place] Carbonate ([place] Carbonate 300 Mg Capsule) 300 mg PO DAILY [facility] Last Admin: 12/01/22 08:56 Dose: 300 mg [place] Carbonate ([place] Carbonate 300 Mg Capsule) 600 mg PO BEDTIME [facility] Last Admin: 11/30/22 20:14 Dose: 600 mg Magnesium Hydroxide (Milk Of Magnesia 30 Ml Oral.Susp) 30 ml PO DAILY PRN PRN Reason: Constipation Melatonin (Melatonin 3 Mg Tablet) 3 mg PO BEDTIME PRN PRN Reason: Sleep Last Admin: 11/28/22 20:50 Dose: 3 mg Olanzapine (Olanzapine 5 Mg Tablet) 5 mg PO Q12H PRN PRN Reason: Agitation Trazodone HCl (Trazodone Hcl 25 Mg Halftab) 75 mg PO BEDTIME [facility] Last Admin: 11/30/22 20:15 Dose: 75 mg Trazodone HCl (Trazodone Hcl 50 Mg Tablet) 50 mg PO BEDTIME MRX1 PRN PRN Reason: Insomnia Last Admin: 11/28/22 20:49 Dose: 50 mg Allergies Allergies Allergy/AdvReac Type Severity Reaction Status Date / Time house dust Allergy Intermediate watery eyes Verified 08/20/21 11:33 adhesive Allergy Unknown Unknown Verified 10/15/21 14:32 fenofibrate Allergy Unknown Unknown Verified 10/15/21 14:32 Sulfa (Sulfonamide Allergy Unknown unknown Verified 10/15/21 14:32 Antibiotics) tomato Allergy Unknown Unknown Verified 10/15/21 14:32 Yeast Allergy Unknown Unknown Verified 10/15/21 14:32 zolpidem [From Ambien] Allergy Unknown Unknown Verified 10/15/21 14:32 lactose AdvReac Unknown Unknown Verified 10/15/21 14:32 Assessment & Plan Assessment & Plan (1) Acute UTI: Status: Acute Code(s): N39.0 - Urinary tract infection, site not specified (2) Schizoaffective disorder, bipolar type: Status: Acute Code(s): F25.0 - Schizoaffective disorder, bipolar type Plan The patient is an elderly male, very well known by this team since he carries a diagnosis of schizoaffective disorder bipolar type, recently discharged from another inpatient unit, brought into the emergency room for disorganized behavior and grandiose delusions. While he was in the emergency room, I UTI had been diagnosed that he had been started with antibiotics. At this moment the patient looks manic with altered mental status but easily redirectable. Plan 1. Admit to geriatric inpatient psychiatric unit. 2. 50 minutes checks. 3. Continue with Clozaril and other medications. 4. Continue with antibiotics for UTI. 5. Gather collateral information. 6. Reassessment with results. 7. UA and basic metabolic panel with CBC with differential done yesterday but UA is still pending Reason for contiued inpatient stay Substantial Risk for: inability to function, rapid decompensation and med/psych decompensation Time Spent With Patient Time: Total time managing care of this patient today _20___ minutes.
[2022-12-01] MEDS: Artificial Tears 15 ML DROPS 1 DROP EYE-RIGHT ×3 (14:41→20:39)
[2022-12-01 18:00] VITALS: BP 156/74; PULSE 74; RESP 17; TEMP 37.4; O2SAT 97
[2022-12-01] MEDS: cloZAPine 25 MG TABLET 75 MG PO (20:16)
[2022-12-01] MEDS: cloZAPine 100 MG TABLET 300 MG PO (20:16)
[2022-12-01] MEDS: Lithium Carbonate 300 MG CAPSULE 600 MG PO (20:18)
[2022-12-01] MEDS: traZODone HCL 25 MG HALFTAB 75 MG PO (20:31)
[2022-12-02] MEDS: Levothyroxine Sodium 175 MCG TABLET PO (05:45)
[2022-12-02] MEDS: cloZAPine 25 MG TABLET 50 MG PO (08:56)
[2022-12-02] MEDS: carvediloL 12.5 MG TABLET PO ×2 (08:57→20:01)
[2022-12-02] MEDS: Apixaban 5 MG TABLET PO ×2 (08:57→20:00)
[2022-12-02] MEDS: Lithium Carbonate 300 MG CAPSULE PO (08:57)
[2022-12-02] MEDS: lamoTRIgine 25 MG TABLET 50 MG PO ×2 (08:57→20:00)
[2022-12-02] MEDS: Gabapentin 100 MG CAPSULE PO ×3 (08:57→19:59)
[2022-12-02] MEDS: Artificial Tears 15 ML DROPS 1 DROP EYE-RIGHT ×2 (08:58→15:55)
--- NOTE | 2022-12-02 11:21 | HO.PSYCHPN ---
Subjective Subjective Date of Service: 12/02/22 Reason For Visit: MOOD Subjective Notes: Conditional Voluntary Interim History: The patient had been compliant with treatment, he slept well and he had some grandiose statements stating that he is [place]. He ate well and he has been in a cheerful mood. Last evening he was slightly upset but easily redirectable. He has finished his course of antibiotics for UTI and at this moment he is asymptomatic. He had been unable to provide us with a urine sample yesterday. On interview the patient denies new symptoms he is confused but easily redirectable. Mental Status Exam Mental Status Exam Patient Appearance: Well Grooomed and Appropriate Patient Orientation: Person and Situation Level of Consciousness: Awake and Appropriate Patient Behavior: Cooperative and Passive Mood Description: Withdrawn Affect Description: Constricted Patient Cognition Impaired: Yes Ability to Follow Directions: Good Speech Pattern: Impoverished and Rapid Hallucinations: None Delusions: Grandiose Thought Process: Illogical and Distracted Thought Content: positive for [place], positive for Poverty of Content and positive for Loose Associations Judgement: Fair Diagnostics Vital Signs (24Hr): Vital Signs - 24 hr 12/01/22 18:00 Temperature 99.3 F Pulse Rate 74 Respiratory Rate 17 Blood Pressure 156/74 H Pulse Oximetry 97 Oxygen Delivery Method Room Air BMI result Body Mass Index 33.2 Labs 12/01/22 08:08 12/01/22 08:08 Labs: Laboratory Results - last 48 hr 12/01/22 12/01/22 12/01/22 08:08 08:08 08:08 WBC 10.0 RBC 4.25 L Hgb 12.1 L Hct 37.5 L MCV 88.2 MCH 28.5 MCHC 32.3 RDW 13.3 Plt Count 363 MPV 9.9 Immature Gran % (Auto) 0.3 Neut % (Auto) 73.5 H Lymph % (Auto) 13.3 L [place] % (Auto) 9.5 Eos % (Auto) 3.0 Baso % (Auto) 0.4 Lymph # (Auto) 1.3 [place] # (Auto) 1.0 Eos # (Auto) 0.3 Baso # (Auto) 0.0 Abs Immat Gran (auto) 0.03 Absolute Neuts (auto) 7.4 Absolute Nucleated RBC 0.000 Nucleated RBC % (auto) 0.0 Sodium 139 Potassium 3.9 Chloride 109 H Carbon Dioxide 23 Anion Gap 11 L BUN 10 Creatinine 0.94 Estim Creat Clear Calc 96.8 Estimated GFR > 60 Random Glucose 106 Estimat Average Glucose 100 Hemoglobin A1c % 5.1 Calcium 9.0 Triglycerides 258 Cholesterol 156 LDL Cholesterol, Calc 80 HDL Cholesterol 25 Medications Medications Current Medications Acetaminophen (Acetaminophen 325 Mg Tablet) 650 mg PO Q6H PRN PRN Reason: Pain Last Admin: 11/30/22 12:20 Dose: 650 mg Al Hydroxide/Mg Hydroxide (Magnesium Hydrox/Alum Hydrox 30 Ml Oral.Susp) 30 ml PO Q6H PRN PRN Reason: Heartburn/Nausea Apixaban (Apixaban 5 Mg Tablet) 5 mg PO BID [facility] Last Admin: 12/02/22 08:57 Dose: 5 mg Artificial Tears (Artificial Tears 15 Ml Drops) 1 drop EYE-RIGHT QID [facility] Last Admin: 12/02/22 08:58 Dose: 1 drop Carvedilol (Carvedilol 12.5 Mg Tablet) 12.5 mg PO BID [facility]; Protocol Last Admin: 12/02/22 08:57 Dose: 12.5 mg Clozapine (Clozapine 100 Mg Tablet) 300 mg PO BEDTIME [facility] Last Admin: 12/01/22 20:16 Dose: 300 mg Clozapine (Clozapine 25 Mg Tablet) 50 mg PO DAILY [facility] Last Admin: 12/02/22 08:56 Dose: 50 mg Clozapine (Clozapine 25 Mg Tablet) 75 mg PO BEDTIME [facility] Last Admin: 12/01/22 20:16 Dose: 75 mg Gabapentin (Gabapentin 100 Mg Capsule) 100 mg PO Q8H PRN PRN Reason: Anxiety Gabapentin (Gabapentin 100 Mg Capsule) 100 mg PO TID [facility] Last Admin: 12/02/22 08:57 Dose: 100 mg Hydrocortisone (Hydrocortisone 1 % Cream 28.35 Gm Tube) 1 appl TOPICAL BID [facility]; Protocol Last Admin: 12/01/22 20:31 Dose: Not Given Hydroxyzine HCl (Hydroxyzine Hcl 25 Mg Tablet) 25 mg PO Q6H PRN PRN Reason: Anxiety Lamotrigine (Lamotrigine 25 Mg Tablet) 50 mg PO BID [facility] Last Admin: 12/02/22 08:57 Dose: 50 mg Levothyroxine Sodium (Levothyroxine Sodium 175 Mcg Tablet) 175 mcg PO DAILY@0600 [facility] Last Admin: 12/02/22 05:45 Dose: 175 mcg [place] Carbonate ([place] Carbonate 300 Mg Capsule) 300 mg PO DAILY [facility] Last Admin: 12/02/22 08:57 Dose: 300 mg [place] Carbonate ([place] Carbonate 300 Mg Capsule) 600 mg PO BEDTIME [facility] Last Admin: 12/01/22 20:18 Dose: 600 mg Magnesium Hydroxide (Milk Of Magnesia 30 Ml Oral.Susp) 30 ml PO DAILY PRN PRN Reason: Constipation Melatonin (Melatonin 3 Mg Tablet) 3 mg PO BEDTIME PRN PRN Reason: Sleep Last Admin: 11/28/22 20:50 Dose: 3 mg Olanzapine (Olanzapine 5 Mg Tablet) 5 mg PO Q12H PRN PRN Reason: Agitation Trazodone HCl (Trazodone Hcl 25 Mg Halftab) 75 mg PO BEDTIME [facility] Last Admin: 12/01/22 20:31 Dose: 75 mg Trazodone HCl (Trazodone Hcl 50 Mg Tablet) 50 mg PO BEDTIME MRX1 PRN PRN Reason: Insomnia Last Admin: 11/28/22 20:49 Dose: 50 mg Allergies Allergies Allergy/AdvReac Type Severity Reaction Status Date / Time house dust Allergy Intermediate watery eyes Verified 08/20/21 11:33 adhesive Allergy Unknown Unknown Verified 10/15/21 14:32 fenofibrate Allergy Unknown Unknown Verified 10/15/21 14:32 Sulfa (Sulfonamide Allergy Unknown unknown Verified 10/15/21 14:32 Antibiotics) tomato Allergy Unknown Unknown Verified 10/15/21 14:32 Yeast Allergy Unknown Unknown Verified 10/15/21 14:32 zolpidem [From Ambien] Allergy Unknown Unknown Verified 10/15/21 14:32 lactose AdvReac Unknown Unknown Verified 10/15/21 14:32 Assessment & Plan Assessment & Plan (1) Acute UTI: Status: Acute Code(s): N39.0 - Urinary tract infection, site not specified (2) Schizoaffective disorder, bipolar type: Status: Acute Code(s): F25.0 - Schizoaffective disorder, bipolar type Plan The patient is an elderly male, very well known by this team since he carries a diagnosis of schizoaffective disorder bipolar type, recently discharged from another inpatient unit, brought into the emergency room for disorganized behavior and grandiose delusions. While he was in the emergency room, I UTI had been diagnosed that he had been started with antibiotics. At this moment the patient looks manic with altered mental status but easily redirectable. Plan 1. Admit to geriatric inpatient psychiatric unit. 2. 50 minutes checks. 3. Continue with Clozaril and other medications. 4. Continue with antibiotics for UTI. 5. Gather collateral information. 6. Reassessment with results. 7. UA and basic metabolic panel with CBC with differential done on November 30 but UA is still pending Reason for contiued inpatient stay Substantial Risk for: inability to function, rapid decompensation and med/psych decompensation Time Spent With Patient Time: Total time managing care of this patient today __20__ minutes.
[2022-12-02 18:00] VITALS: BP 123/74; PULSE 69; RESP 18; TEMP 36.6; O2SAT 97
[2022-12-02 18:25] LABS: Appearance Urine Clear; Color Urine Yellow; Glucose Urine UA Negative (Negative); Leukocyte Esterase Urine Trace (Negative); Nitrite Urine Negative (Negative); UMIC TRIGGER UACC YES; Urine Blood Negative (Negative); Urine Ketones Negative (Negative); Urine Protein Negative (Neg-Trace)
[2022-12-02 18:29] LABS: Bacteria Urine None Seen (None Seen); Hyaline Casts Urine 0-2 /LPF (0-2); RBC Urine 0-2 /HPF (0-2); Squamous Epithelial Cell Urine 0-2 /HPF (0-2); WBC Urine 0-5 /HPF (0-5)
[2022-12-02] MEDS: Lithium Carbonate 300 MG CAPSULE 600 MG PO (19:57)
[2022-12-02] MEDS: cloZAPine 25 MG TABLET 75 MG PO (19:57)
[2022-12-02] MEDS: traZODone HCL 25 MG HALFTAB 75 MG PO (19:59)
[2022-12-02] MEDS: hydrOXYzine HCL 25 MG TABLET PO (20:00)
[2022-12-02] MEDS: Hydrocortisone 1 % Cream 28.35 GM TUBE 1 APPL TOPICAL (22:59)
[2022-12-02] MEDS: cloZAPine 100 MG TABLET 300 MG PO (22:59)
[2022-12-03] MEDS: Levothyroxine Sodium 175 MCG TABLET PO (06:05)
--- NOTE | 2022-12-03 08:15 | P.PNPSI_ITS ---
Subjective Subjective Date of Service: 12/03/22 Reason For Visit: MOOD Subjective Notes: Conditional Voluntary (By healthcare proxy) Healthcare Proxy: Yes Interim History: The nursing staff reported the patient had been compliant with his treatment, he was seen in the common areas participating in groups. Yesterday he was slightly agitated since there was too much stimulation in the area. He remains grandiose but that is his baseline. No new symptoms. On interview the patient denies new symptoms, he is at baseline and we will discharge him tomorrow. Mental Status Exam Mental Status Exam Patient Appearance: Appropriate Patient Orientation: Person and Situation Level of Consciousness: Awake and Appropriate Patient Behavior: Cooperative and Passive Mood Description: Calm Affect Description: Calm Patient Cognition Impaired: Yes Ability to Follow Directions: Good Speech Pattern: Clear Hallucinations: None Delusions: Grandiose Thought Process: Incoherent and Distracted Thought Content: positive for [place], positive for Loose Associations and positive for Disorganized Judgement: Fair Diagnostics Vital Signs (24Hr): Vital Signs - 24 hr 12/02/22 18:00 Temperature 97.9 F Pulse Rate 69 Respiratory Rate 18 Blood Pressure 123/74 Pulse Oximetry 97 Oxygen Delivery Method Room Air BMI result Body Mass Index 33.2 Labs 12/01/22 08:08 12/01/22 08:08 Labs: Laboratory Results - last 48 hr 12/01/22 12/01/22 12/01/22 08:08 08:08 08:08 WBC 10.0 RBC 4.25 L Hgb 12.1 L Hct 37.5 L MCV 88.2 MCH 28.5 MCHC 32.3 RDW 13.3 Plt Count 363 MPV 9.9 Immature Gran % (Auto) 0.3 Neut % (Auto) 73.5 H Lymph % (Auto) 13.3 L [place] % (Auto) 9.5 Eos % (Auto) 3.0 Baso % (Auto) 0.4 Lymph # (Auto) 1.3 [place] # (Auto) 1.0 Eos # (Auto) 0.3 Baso # (Auto) 0.0 Abs Immat Gran (auto) 0.03 Absolute Neuts (auto) 7.4 Absolute Nucleated RBC 0.000 Nucleated RBC % (auto) 0.0 Sodium 139 Potassium 3.9 Chloride 109 H Carbon Dioxide 23 Anion Gap 11 L BUN 10 Creatinine 0.94 Estim Creat Clear Calc 96.8 Estimated GFR > 60 Random Glucose 106 Estimat Average Glucose 100 Hemoglobin A1c % 5.1 Calcium 9.0 Triglycerides 258 Cholesterol 156 LDL Cholesterol, Calc 80 HDL Cholesterol 25 Urine Color Urine Appearance Urine pH Ur Specific [place] Urine Protein Urine Glucose (UA) Urine Ketones Urine Blood Urine Nitrite Ur Leukocyte Esterase Urine RBC Urine WBC Ur Squamous Epith Cells Urine Bacteria Hyaline Casts 12/02/22 18:08 WBC RBC Hgb Hct MCV MCH MCHC RDW Plt Count MPV Immature Gran % (Auto) Neut % (Auto) Lymph % (Auto) [place] % (Auto) Eos % (Auto) Baso % (Auto) Lymph # (Auto) [place] # (Auto) Eos # (Auto) Baso # (Auto) Abs Immat Gran (auto) Absolute Neuts (auto) Absolute Nucleated RBC Nucleated RBC % (auto) Sodium Potassium Chloride Carbon Dioxide Anion Gap BUN Creatinine Estim Creat Clear Calc Estimated GFR Random Glucose Estimat Average Glucose Hemoglobin A1c % Calcium Triglycerides Cholesterol LDL Cholesterol, Calc HDL Cholesterol Urine Color Yellow Urine Appearance Clear Urine pH 6.0 Ur Specific [place] 1.010 Urine Protein Negative Urine Glucose (UA) Negative Urine Ketones Negative Urine Blood Negative Urine Nitrite Negative Ur Leukocyte Esterase Trace H Urine RBC 0-2 Urine WBC 0-5 Ur Squamous Epith Cells 0-2 Urine Bacteria None Seen Hyaline Casts 0-2 Medications Medications Current Medications Acetaminophen (Acetaminophen 325 Mg Tablet) 650 mg PO Q6H PRN PRN Reason: Pain Last Admin: 11/30/22 12:20 Dose: 650 mg Al Hydroxide/Mg Hydroxide (Magnesium Hydrox/Alum Hydrox 30 Ml Oral.Susp) 30 ml PO Q6H PRN PRN Reason: Heartburn/Nausea Apixaban (Apixaban 5 Mg Tablet) 5 mg PO BID [facility] Last Admin: 12/02/22 20:00 Dose: 5 mg Artificial Tears (Artificial Tears 15 Ml Drops) 1 drop EYE-RIGHT QID [facility] Last Admin: 12/02/22 20:03 Dose: Not Given Carvedilol (Carvedilol 12.5 Mg Tablet) 12.5 mg PO BID [facility]; Protocol Last Admin: 12/02/22 20:01 Dose: 12.5 mg Clozapine (Clozapine 100 Mg Tablet) 300 mg PO BEDTIME [facility] Last Admin: 12/02/22 22:59 Dose: 300 mg Clozapine (Clozapine 25 Mg Tablet) 50 mg PO DAILY [facility] Last Admin: 12/02/22 08:56 Dose: 50 mg Clozapine (Clozapine 25 Mg Tablet) 75 mg PO BEDTIME [facility] Last Admin: 12/02/22 19:57 Dose: 75 mg Gabapentin (Gabapentin 100 Mg Capsule) 100 mg PO Q8H PRN PRN Reason: Anxiety Gabapentin (Gabapentin 100 Mg Capsule) 100 mg PO TID [facility] Last Admin: 12/02/22 19:59 Dose: 100 mg Hydrocortisone (Hydrocortisone 1 % Cream 28.35 Gm Tube) 1 appl TOPICAL BID [facility]; Protocol Last Admin: 12/02/22 22:59 Dose: 1 appl Hydroxyzine HCl (Hydroxyzine Hcl 25 Mg Tablet) 25 mg PO Q6H PRN PRN Reason: Anxiety Last Admin: 12/02/22 20:00 Dose: 25 mg Lamotrigine (Lamotrigine 25 Mg Tablet) 50 mg PO BID [facility] Last Admin: 12/02/22 20:00 Dose: 50 mg Levothyroxine Sodium (Levothyroxine Sodium 175 Mcg Tablet) 175 mcg PO DAILY@0600 [facility] Last Admin: 12/03/22 06:05 Dose: 175 mcg [place] Carbonate ([place] Carbonate 300 Mg Capsule) 300 mg PO DAILY [facility] Last Admin: 12/02/22 08:57 Dose: 300 mg [place] Carbonate ([place] Carbonate 300 Mg Capsule) 600 mg PO BEDTIME [facility] Last Admin: 12/02/22 19:57 Dose: 600 mg Magnesium Hydroxide (Milk Of Magnesia 30 Ml Oral.Susp) 30 ml PO DAILY PRN PRN Reason: Constipation Melatonin (Melatonin 3 Mg Tablet) 3 mg PO BEDTIME PRN PRN Reason: Sleep Last Admin: 11/28/22 20:50 Dose: 3 mg Olanzapine (Olanzapine 5 Mg Tablet) 5 mg PO Q12H PRN PRN Reason: Agitation Trazodone HCl (Trazodone Hcl 25 Mg Halftab) 75 mg PO BEDTIME [facility] Last Admin: 12/02/22 19:59 Dose: 75 mg Trazodone HCl (Trazodone Hcl 50 Mg Tablet) 50 mg PO BEDTIME MRX1 PRN PRN Reason: Insomnia Last Admin: 11/28/22 20:49 Dose: 50 mg Allergies Allergies Allergy/AdvReac Type Severity Reaction Status Date / Time house dust Allergy Intermediate watery eyes Verified 08/20/21 11:33 adhesive Allergy Unknown Unknown Verified 10/15/21 14:32 fenofibrate Allergy Unknown Unknown Verified 10/15/21 14:32 Sulfa (Sulfonamide Allergy Unknown unknown Verified 10/15/21 14:32 Antibiotics) tomato Allergy Unknown Unknown Verified 10/15/21 14:32 Yeast Allergy Unknown Unknown Verified 10/15/21 14:32 zolpidem [From Ambien] Allergy Unknown Unknown Verified 10/15/21 14:32 lactose AdvReac Unknown Unknown Verified 10/15/21 14:32 Assessment & Plan Assessment & Plan (1) Acute UTI: Status: Acute Code(s): N39.0 - Urinary tract infection, site not specified (2) Schizoaffective disorder, bipolar type: Status: Acute Code(s): F25.0 - Schizoaffective disorder, bipolar type Plan The patient is an elderly male, very well known by this team since he carries a diagnosis of schizoaffective disorder bipolar type, recently discharged from another inpatient unit, brought into the emergency room for disorganized behavior and grandiose delusions. While he was in the emergency room, I UTI had been diagnosed that he had been started with antibiotics. At this moment the patient looks manic with altered mental status but easily redi rectable. Plan 1. Admit to geriatric inpatient psychiatric unit. 2. Fifteen minutes checks. 3. Continue with Clozaril and other medications. 4. Continue with antibiotics for UTI. 5. Gather collateral information. 6. Reassessment with results. 7. UA and basic metabolic panel with CBC with differential done on November 30 and UA came back negative yesterday. 8. Discharge tomorrow Reason for contiued inpatient stay Substantial Risk for: inability to function, rapid decompensation and med/psych decompensation Time Spent With Patient Time: Total time managing care of this patient today __20__ minutes.
[2022-12-03 11:06] VITALS: BP 127/60; PULSE 75; RESP 16; TEMP 36.7; O2SAT 96
[2022-12-03] MEDS: Apixaban 5 MG TABLET PO ×2 (11:24→19:59)
[2022-12-03] MEDS: cloZAPine 25 MG TABLET 50 MG PO (11:24)
[2022-12-03] MEDS: lamoTRIgine 25 MG TABLET 50 MG PO ×2 (11:25→20:00)
[2022-12-03] MEDS: Lithium Carbonate 300 MG CAPSULE PO (11:25)
[2022-12-03] MEDS: Gabapentin 100 MG CAPSULE PO ×3 (11:25→20:00)
[2022-12-03] MEDS: carvediloL 12.5 MG TABLET PO ×2 (11:26→19:58)
[2022-12-03] MEDS: Artificial Tears 15 ML DROPS 1 DROP EYE-RIGHT ×3 (11:55→20:02)
[2022-12-03 19:50] VITALS: BP 123/64; PULSE 67; RESP 18; TEMP 36.4; O2SAT 97
[2022-12-03] MEDS: cloZAPine 100 MG TABLET 300 MG PO (19:58)
[2022-12-03] MEDS: traZODone HCL 25 MG HALFTAB 75 MG PO (19:59)
[2022-12-03] MEDS: Lithium Carbonate 300 MG CAPSULE 600 MG PO (19:59)
[2022-12-03] MEDS: cloZAPine 25 MG TABLET 75 MG PO (20:01)
[2022-12-03] MEDS: Hydrocortisone 1 % Cream 28.35 GM TUBE 1 APPL TOPICAL (20:02)
[2022-12-04] MEDS: Levothyroxine Sodium 175 MCG TABLET PO (05:27)
--- NOTE | 2022-12-04 08:19 | PM.PSYDC ---
DS: Providers Provider Date of Service: 12/04/22 Date of admission: 11/27/22 14:30 Date of discharge: 12/04/22 Primary care physician: Migel Lundberg MD DS: Diagnosis Discharge Diagnosis (1) Acute UTI: Status: Acute (2) Schizoaffective disorder, bipolar type: Status: Acute DS: Medications Discharge Medications Home Medications: Home Medications Medication Instructions Recorded Confirmed acetaminophen 650 mg tablet 650 mg PO Q6H PRN Pain 11/25/22 11/25/22 apixaban 5 mg tablet 5 mg PO BID 11/25/22 11/25/22 carvedilol 12.5 mg tablet 12.5 mg PO BID 11/25/22 11/25/22 clotrimazole 1 % topical cream 1 appl topical BID 11/25/22 11/25/22 clozapine 375 mg PO BEDTIME 11/25/22 11/25/22 clozapine 50 mg tablet (Clozaril) 50 mg PO QAM 11/25/22 11/25/22 gabapentin 100 mg capsule 100 mg PO Q8H PRN Anxiety 11/25/22 11/25/22 gabapentin 100 mg capsule 100 mg PO TID 11/25/22 11/25/22 lamotrigine 25 mg tablet (Lamictal) 50 mg PO BID 11/25/22 11/25/22 levothyroxine 175 mcg tablet 175 mcg PO DAILY 11/25/22 11/25/22 lithium carbonate 300 mg tablet 300 mg PO QAM 11/25/22 11/25/22 lithium carbonate 600 mg capsule 600 mg PO BEDTIME 11/25/22 11/25/22 melatonin 3 mg tablet 3 mg PO BEDTIME PRN Sleep 11/25/22 11/25/22 nitrofurantoin macrocrystal 100 mg 100 mg PO BID 11/25/22 11/25/22 capsule olanzapine 5 mg disintegrating 5 mg PO Q12H PRN Agitation 11/25/22 11/25/22 tablet polyvinyl alcohol 1.4 % eye drops 1 drp ophthalmic-Right QID 11/25/22 11/25/22 (Artificial Tears (polyvinyl alcohol)) trazodone 75 mg PO BEDTIME 11/25/22 11/25/22 trazodone 50 mg tablet 25 mg PO DAILY PRN Sleep 11/25/22 11/25/22 Mental Status Exam Mental Status Exam Patient Appearance: Appropriate Patient Orientation: Person and Situation Level of Consciousness: Awake and Appropriate Patient Behavior: Guarded and Passive Mood Description: Calm and Cheerful Affect Description: Happy Patient Cognition Impaired: Yes Ability to Follow Directions: Good Speech Pattern: Clear Hallucinations: None Delusions: Grandiose Thought Process: Distracted Thought Content: positive for [place], positive for Loose Associations and positive for Thought Blocking Judgement: Fair Data Data Completed and Pending Completed studies during hospitalization [Text1]: 11/28/22 12/01/22 12/01/22 06:41 08:08 08:08 WBC 10.0 RBC 4.25 L Hgb 12.1 L Hct 37.5 L MCV 88.2 MCH 28.5 MCHC 32.3 RDW 13.3 Plt Count 363 MPV 9.9 Immature Gran % (Auto) 0.3 Neut % (Auto) 73.5 H Lymph % (Auto) 13.3 L [place] % (Auto) 9.5 Eos % (Auto) 3.0 Baso % (Auto) 0.4 Lymph # (Auto) 1.3 [place] # (Auto) 1.0 Eos # (Auto) 0.3 Baso # (Auto) 0.0 Abs Immat Gran (auto) 0.03 Absolute Neuts (auto) 7.4 Absolute Nucleated RBC 0.000 Nucleated RBC % (auto) 0.0 Sodium 141 139 Potassium 4.3 3.9 Chloride 109 H 109 H Carbon Dioxide 23 23 Anion Gap 13 11 L BUN 13 10 Creatinine 0.89 0.94 Estim Creat Clear Calc 102.2 96.8 Estimated GFR > 60 > 60 Random Glucose 106 Fasting Glucose 105 H Estimat Average Glucose Hemoglobin A1c % Calcium 9.0 9.0 Total Bilirubin 0.5 AST 13 ALT 15 Alkaline Phosphatase 92 Total Protein 5.8 L Albumin 3.7 Triglycerides 224 258 Cholesterol 147 156 LDL Cholesterol, Calc 78 80 HDL Cholesterol 25 25 Urine Color Urine Appearance Urine pH Ur Specific [place] Urine Protein Urine Glucose (UA) Urine Ketones Urine Blood Urine Nitrite Ur Leukocyte Esterase Urine RBC Urine WBC Ur Squamous Epith Cells Urine Bacteria Hyaline Casts 12/01/22 12/02/22 08:08 18:08 WBC RBC Hgb Hct MCV MCH MCHC RDW Plt Count MPV Immature Gran % (Auto) Neut % (Auto) Lymph % (Auto) [place] % (Auto) Eos % (Auto) Baso % (Auto) Lymph # (Auto) [place] # (Auto) Eos # (Auto) Baso # (Auto) Abs Immat Gran (auto) Absolute Neuts (auto) Absolute Nucleated RBC Nucleated RBC % (auto) Sodium Potassium Chloride Carbon Dioxide Anion Gap BUN Creatinine Estim Creat Clear Calc Estimated GFR Random Glucose Fasting Glucose Estimat Average Glucose 100 Hemoglobin A1c % 5.1 Calcium Total Bilirubin AST ALT Alkaline Phosphatase Total Protein Albumin Triglycerides Cholesterol LDL Cholesterol, Calc HDL Cholesterol Urine Color Yellow Urine Appearance Clear Urine pH 6.0 Ur Specific [place] 1.010 Urine Protein Negative Urine Glucose (UA) Negative Urine Ketones Negative Urine Blood Negative Urine Nitrite Negative Ur Leukocyte Esterase Trace H Urine RBC 0-2 Urine WBC 0-5 Ur Squamous Epith Cells 0-2 Urine Bacteria None Seen Hyaline Casts 0-2 11/25/22 Unknown Urine clean catch - Urine rivera top Urine Culture - Final Klebsiella pneumoniae DS: Summary Hospital Course Hospital Course: The patient is a 67-year-old male, single, resident of a detention facility, very well known by this service, with schizoaffective disorder was brought into the facility for disorganized behavior, agitation and altered mental status. He was recently discharged from another facility a few days ago. Please see the HPI of the admission note for further details. On admission, we review his medications and he still on Clozaril. We realized the patient had a UTI and he was already treated with antibiotics., we reviewed his laboratory tests and after finishing treatment with 2nd floor, the patient was at his baseline. He was cheerful, pleasant, disorganized and grandiose. Fully cooperative with treatment. Since the patient was at his baseline and there were no safety concerns discharge planning was discussed. Time spent discussing smoking cessation with patient: 3 to 10 minutes Status at Discharge Cognitive/behavioral status at discharge: Impaired at baseline Functional status at discharge: independent ambulation Overall status at discharge: patient is back to baseline Time Spent with Patient Time attestation: Total time managing care of this patient today _30___ minutes. Time spent: Less than 30 minutes Discharge Plan Discharge Anticipated Discharge Date/Time: 12/04/22 09:00 Patient Disposition: Xfer SNF Discharge Diagnosis: Schizoaffective disorder Delirium induced by UTI resolved. Referrals: Migel Lundberg MD [Primary Care Provider] - 1 Week Discharge Medications: New acetaminophen 325 mg Tablet 650 mg PO Q6H PRN (Reason: Pain) 30 Days Qty: 30 0RF clozapine 100 mg Tablet 300 mg PO BEDTIME 30 Days Qty: 90 0RF hydrocortisone 1 % Cream 1 appl topical BID 30 Days Qty: 1 0RF Protocol: Apply to: Apply to: affected area clozapine 25 mg Tablet 75 mg PO BEDTIME 30 Days Qty: 90 0RF Continued levothyroxine 175 mcg Tablet 175 mcg PO DAILY 30 Days Qty: 30 0RF carvedilol 12.5 mg Tablet 12.5 mg PO BID 30 Days Qty: 60 0RF Rx Instructions: must administer with a meal/food polyvinyl alcohol [Artificial Tears (polyvin alc)] 1.4 % Drops 1 drp OPHTHALMIC-RIGHT QID 30 Days Qty: 1 0RF melatonin 3 mg Tablet 3 mg PO BEDTIME PRN (Reason: Sleep) 30 Days Qty: 30 0RF lamotrigine [Lamictal] 25 mg Tablet 50 mg PO BID 30 Days Qty: 120 0RF lithium carbonate 600 mg Capsule 600 mg PO BEDTIME 30 Days Qty: 30 0RF gabapentin 100 mg Capsule 100 mg PO Q8H PRN (Reason: Anxiety) 30 Days Qty: 30 0RF gabapentin 100 mg Capsule 100 mg PO TID 30 Days Qty: 90 0RF lithium carbonate 300 mg Tablet 300 mg PO QAM 30 Days Qty: 30 0RF clotrimazole 1 % Cream 1 appl TOPICAL BID 30 Days Qty: 1 0RF olanzapine 5 mg Tablet,Disintegrating 5 mg PO Q12H PRN (Reason: Agitation) Qty: 30 0RF clozapine [Clozaril] 50 mg Tablet 50 mg PO QAM 30 Days Qty: 30 0RF apixaban 5 mg Tablet 5 mg PO BID Qty: 30 0RF trazodone 150 mg 75 mg PO BEDTIME 30 Days Qty: 30 0RF Discontinued acetaminophen 650 mg Tablet 650 mg PO Q6H PRN (Reason: Pain) clozapine 375 mg 375 mg PO BEDTIME trazodone 50 mg Tablet 25 mg PO DAILY PRN (Reason: Sleep) nitrofurantoin macrocrystal 100 mg Capsule 100 mg PO BID Rx Instructions: must administer with a meal/food finish on 11/28/22 Discharge Orders: Discharge Order (Routine); Ordered 12/04/22 Ordered By: Martin Marquis Diet: Advance to usual diet Activity on Discharge: As tolerated Stand Alone Forms: Patient Portal Discharge page Care Plan Goals: Care plan goals achieved in this admission Health Concerns: Continue treatment with primary care physician. At this moment he finished his antibiotic treatment for UTI Plan of Treatment: Continue treatment by outpatient providers. Assessment: Elderly male with schizoaffective disorder resident of a detention facility who was admitted for altered mental status in the context of a UTI that caused him delirium. He was medically treated and he went back to baseline. At this moment ready to be discharged to his facility.
[2022-12-04] MEDS: Artificial Tears 15 ML DROPS 1 DROP EYE-RIGHT (08:23)
[2022-12-04] MEDS: cloZAPine 25 MG TABLET 50 MG PO (08:25)
[2022-12-04] MEDS: Lithium Carbonate 300 MG CAPSULE PO (08:25)
[2022-12-04] MEDS: Apixaban 5 MG TABLET PO (08:25)
[2022-12-04] MEDS: lamoTRIgine 25 MG TABLET 50 MG PO (08:25)
[2022-12-04] MEDS: Gabapentin 100 MG CAPSULE PO ×2 (08:25→15:50)
[2022-12-04] MEDS: carvediloL 12.5 MG TABLET PO (08:25)
[2022-12-04 08:29] VITALS: BP 159/70; PULSE 89; RESP 18; TEMP 36.7; O2SAT 97
== END 2022-12-04 16:20 | disposition skilled nursing facility (03) | DRG 885 ==
LOC: HO.ED 17:29 → HO.PGERI 11-27 14:37
PROVIDERS: Physician Assistant Medical; Admitting Provider Psychiatry & Neurology Psychiatry; Emergency Provider Emergency Medicine; PCP Family Medicine Geriatric Medicine; Visit Provider Psychiatry & Neurology Psychiatry
DX: F25.0 Schizoaffective disorder, bipolar type (principal); N39.0 Urinary tract infection, site not specified; E03.9 Hypothyroidism, unspecified; G47.33 Obstructive sleep apnea (adult) (pediatric); F03.90 Unspecified dementia, unspecified severity, without behavioral disturbance, psychotic disturbance, mood disturbance, and anxiety; Z20.822 Contact with and (suspected) exposure to COVID-19; Z88.2 Allergy status to sulfonamides; Z79.01 Long term (current) use of anticoagulants; Z79.890 Hormone replacement therapy; Z79.899 Other long term (current) drug therapy
CPT/HCPCS: 36415; 80048; 80053; 80061; 80178; 80307; 81001; 83036; 85025; 87086; 87088; 87186; 87635; 93005; 99285; S9485